=== PATIENT | female | born 2000 | race Caucasian/White ===

== ENCOUNTER 2020-01-21 18:00 | Emergency (ER) | payer OTHER, SELFPAY ==
[2020-01-21 18:10] VITALS: BP 129/85; PULSE 109; RESP 14; TEMP 36.8
--- NOTE | 2020-01-21 18:46 | ED.GENADULT ---
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 ISSUE <HUMBERTO Youssef Last Filed: 01/21/20 18:50> Time Seen by Provider: 01/21/20 18:14 <HUMBERTO Youssef Last Filed: 01/21/20 18:50> Source: patient <HUMBERTO Youssef Last Filed: 01/21/20 18:50> Mode of arrival: ambulatory <HUMBERTO Youssef Last Filed: 01/21/20 18:50> Limitations: no limitations <HMUBERTO Youssef Last Filed: 01/21/20 18:50> History of Present Illness HPI narrative: Patient is a 19-year-old female who presents to emergency department for evaluation of small piece of skin protruding from the vagina that was noticed today patient notes some mild discomfort with palpation patient notes she had intercourse this weekend denies similar occurrence in the past denies concern for STDs has not been seen for this complaint does have pending gynecological follow-up <HUMBERTO Youssef Last Filed: 01/21/20 18:50> Related Data Home medications: Home Medications Medication Instructions Recorded Confirmed desog-e.estradiol/e.estradiol 0.15 1 tablet PO DAILY 12/10/19 mg-0.02 mg(21)/e.estrad 0.01 mg(5) tablet <HUMBERTO Youssef Last Filed: 01/21/20 18:50> Allergies/adverse reactions: Allergies Allergy/AdvReac Type Severity Reaction Status Date / Time No Known Allergies Allergy Verified 12/09/19 15:11 <HUMBERTO Youssef Last Filed: 01/21/20 18:50> Review of Systems Review of Systems: Narrative: CONSTITUTIONAL: Denies fever, chills, or sweats. GASTROINTESTINAL: Denies abdominal pain, nausea, vomiting, or diarrhea. GENITOURINARY: Denies dysuria or hematuria. SKIN: Denies rash or itching. PSYCHIATRIC: Denies anxiety or depression. <HUMBERTO Youssef Last Filed: 01/21/20 18:50> [facility] Social History Social History: Social History Smoking status: Never smoker Alcohol intake: never Gender identity (if verbalized by the patient): Female <Ander Jordan PA-C - Last Filed: 01/21/20 18:50> Exam Narrative: Exam Narrative: GENERAL: Well-appearing, well-nourished, and in no acute distress. HEAD: Normocephalic, atraumatic. EYES: PERRLA and EOMI. ENT: Nares clear, no rhinorrhea or epistaxis. Mucous membranes moist. FEMALE GENITOURINARY: Small linear piece of skin on vaginal exam measuring exactly 1 cm pink tissue no erythema otherwise unremarkable exam SKIN: Warm, dry, no rash. NEURO: No focal deficits. Alert and oriented x3. PSYCH: Normal mood and affect. <Ander Jordan PA-C - Last Filed: 01/21/20 18:50> Course Course Emergency Course: Patient in the room aware of case findings treatment plan and diagnosis agreeing to follow-up as directed <Ander Jordan PA-C - Last Filed: 01/21/20 18:50> Vital Signs Vital signs: Vital Signs Temperature 36.8 C 01/21/20 18:10 Pulse Rate 109 H 01/21/20 18:10 Respiratory Rate 14 01/21/20 18:10 Blood Pressure 129/85 01/21/20 18:10 Temperature 36.8 C 01/21/20 18:10 Pulse Rate 99 01/21/20 18:55 Respiratory Rate 12 01/21/20 18:55 Blood Pressure 120/70 01/21/20 18:55 Pulse Oximetry 99 01/21/20 18:55 <Ander Jordan PA-C - Last Filed: 01/21/20 18:50> Vital Signs Temperature 36.8 C 01/21/20 18:10 Pulse Rate 109 H 01/21/20 18:10 Respiratory Rate 14 01/21/20 18:10 Blood Pressure 129/85 01/21/20 18:10 Temperature 36.8 C 01/21/20 18:10 Pulse Rate 99 01/21/20 18:55 Respiratory Rate 12 01/21/20 18:55 Blood Pressure 120/70 01/21/20 18:55 Pulse Oximetry 99 01/21/20 18:55 <Wendie Martin MD - Last Filed: 01/21/20 19:18> Medical Decision Making MDM Narrative Medical decision making narrative: Patient with small piece of skin in the vaginal vault felt ap
[2020-01-21 18:55] VITALS: BP 120/70; PULSE 99; RESP 12; O2SAT 99
== END 2020-01-21 18:55 | disposition home or self-care (01) ==
PROVIDERS: Emergency Provider Emergency Medicine; PCP Family Medicine
DX: N90.89 Other specified noninflammatory disorders of vulva and perineum (principal)
CPT/HCPCS: 99284

== ENCOUNTER → 2020-06-21 07:45 | Outpatient (CLI) | payer OTHER, SELFPAY ==
--- NOTE | ~2020-06-21 | MR_ITS ---
EXAMINATION: MR lumbar spine wo con DATE: 06/21/2020 08:28 INDICATION: Low back pain. Sciatica. TECHNIQUE: Magnetic resonance imaging (MRI) of the lumbar spine was performed without intravenous con trast. Sequences included sagittal T2-weighted FSE, sagittal T2-weighted FS FSE, sagittal T1-weighted FSE, and axial T2-weighted FSE. COMPARISON: None FINDINGS: Bone alignment is normal. There are Schmorl's nodes at most levels. There is a transitional segment at the lumbosacral junction that is designated L5. There is mild chronic anterior wedging of T11 and T12 vertebral bodies. There is mildly decreased disc height at T12-L1 and L4-L5. The distal spinal cord signal intensity is normal. The conus medullaris is at T12. The following disc levels are specifically discussed: T12-L1: There is a left central extrusion. There is no facet joint osteoarthritis. There is no neural foraminal stenosis. There is mild central canal stenosis. L1-L2: The disc does not extend beyond the endplate margin. There is no facet joint osteoarthritis. T here is no neural foraminal stenosis. There is no central canal stenosis. L2-L3: There is a right foraminal protrusion. There is no facet joint osteoarthritis. There is mild r ight neural foraminal stenosis. There is no central canal stenosis. L3-L4: The disc does not extend beyond the endplate margin. There is mild bilateral facet joint osteo arthritis. There is mild right neural foraminal stenosis. There is no central canal stenosis. L4-L5: There is a central extrusion. There is mild bilateral facet joint osteoarthritis. There is mil d left neural foraminal stenosis. There is mild central canal stenosis. L5-S1: The disc does not extend beyond the endplate margin. There is mild bilateral facet joint osteo arthritis. There is no neural foraminal stenosis. There is no central canal stenosis. IMPRESSION: 1. Mild lumbar spondylosis. Reviewed, dictated and finalized at location A. IMPRESSION: 1. Mild lumbar spondylosis.
== END ==
DX: M54.30 Sciatica, unspecified side (principal); M47.816 Spondylosis without myelopathy or radiculopathy, lumbar region
CPT/HCPCS: 72148

== ENCOUNTER → 2020-11-03 08:04 | Outpatient (CLI) | payer OTHER, SELFPAY ==
--- NOTE | ~2020-11-03 | US_ITS ---
EXAMINATION: US abdomen complete EXAM DATE: 11/03/2020 08:25 INDICATION: R10.13 - Epigastric pain. TECHNIQUE: Multiple grayscale and Doppler images of the complete abdomen were obtained (by a technolo gist who performed the scan) and subsequently reviewed. There is no prior study for comparison. FINDINGS: The abdominal aorta is normal in caliber. Visualized portion IVC is patent. The pancreatic head a nd body are normal in appearance. The pancreatic tail is not visualized. The liver has normal echogenicity and contour. There are no focal liver lesions identified. There is no evidence of intrahepatic biliary duct dilation. Portal venous flow was seen in the hepatopedal , normal direction and has normal Doppler waveform. Common bile duct measures 5 mm, which is normal. The gallbladder wall is normal in thickness, with ex pected amount of distention. No sonographic evidence of pericholecystic fluid. There is no cholelit hiases. Technologist performing exam reports patient did not demonstrate sonographic Shields's sign. Please note that this sign is less reliable in patients who have received pain medication. Right kidney: There is normal contour and echogenicity. It measures 10.6 x 4.4 x 5.8 centimeters. There are no focal renal lesions identified. There is no hydronephrosis. Left kidney: There is normal contour and echogenicity. It measures 11.4 x 5.3 x 5.2 centimeters. T here are no focal renal lesions identified. There is no hydronephrosis. The spleen measures 12.9 centimeters and is morphologically normal. IMPRESSION: 1. Unremarkable complete abdominal ultrasound exam. Reviewed, dictated and finalized at location B. TECHNICIAN
== END ==
PROVIDERS: PCP Nurse Practitioner Family; Visit Provider Nurse Practitioner Family
DX: R10.13 Epigastric pain (principal)
CPT/HCPCS: 76700

== ENCOUNTER 2020-12-24 07:58 | Outpatient (CLI) | payer OTHER, SELFPAY ==
--- NOTE | ~2020-12-24 | XR_ITS ---
XR cervical spine min 6V 12/24/2020 08:28 Indication: Cervicalgia Procedure: 6 views of the cervical spine including flexion and extension Comparison: No prior studies for comparison. Findings: There is straightening of cervical lordosis. No prevertebral soft tissue swelling. There is anatomic alignment. Vertebral body heights are maintained. No significant disc narrowing. No acute f racture or traumatic malalignment. Facet and uncinate joints within normal limits. Lung apices are no rmal. Lateral masses are normally aligned. No evidence for perched facet. Impression: 1: No significant abnormality of the cervical spine. Reviewed, dictated and finalized at location B. Impression: 1: No significant abnormality of the cervical spine.
--- NOTE | ~2020-12-24 | CT_ITS ---
EXAMINATION: CT abdomen pelvis wo con DATE: 12/24/2020 08:44 INDICATION: Epigastric pain TECHNIQUE: Computed tomography (CT) of the abdomen and pelvis was performed without intravenous contr ast. The dose-length product was 1082.25 mGy-cm. Automated exposure control and iterative reconstruct ion technique were employed. COMPARISON: Ultrasound dated 11/03/2020. FINDINGS: No significant pleural or pericardial effusion. Heart size normal. No significant pleural o r pericardial effusion. No significant vascular abnormality. No lymphadenopathy. There are multiple m esenteric lymph nodes were marked for mildly enlarged. Fat-containing umbilical hernia. Nonobstructiv e bowel gas pattern. The liver, spleen, pancreas, adrenal glands and kidneys are unremarkable. Gallbladder is present. No acute osseous abnormality. IMPRESSION: 1. Mild diffuse mesenteric lymphadenopathy, most likely reactive. Lymphoma and metastatic disease are less favored, although not excluded. Reviewed, dictated and finalized at location B.
== END 2020-12-24 07:59 | disposition home or self-care (01) ==
PROVIDERS: PCP Family Medicine; Visit Provider Nurse Practitioner Family
DX: R10.13 Epigastric pain (principal); M54.2 Cervicalgia; R59.0 Localized enlarged lymph nodes
CPT/HCPCS: 72052; 74176

== ENCOUNTER 2021-01-04 10:01 | Outpatient (CLI) | payer OTHER, SELFPAY ==
[2021-01-04 10:42] LABS: Basophils Percent Auto 0.3 % (0.2-1.2); Eosinophils Absolute Auto 0.1 K/mm3 (0-0.3); Eosinophils Percent Auto 0.9 % (0-4.4); Hematocrit 40.7 % (37.0-47.0); Hemoglobin 13.2 g/dL (12.0-15.0); Immature Granulocyte Absolute 0.02 K/mm3 (0.00-0.031); Immature Granulocyte Percent A 0.3 % (0-0.5); Lymphocytes Absolute Auto 2.55 K/mm3 (0.9-3.2); Lymphocytes Percent Auto 37.3 % (18.3-44.2); Mean Corpuscular HGB Conc 32.4 g/dl (32-36); Mean Corpuscular Hemoglobin 27.6 pg (26-34); Mean Corpuscular Volume 85.1 fl (80-100); Mean Platelet Volume 9.7 fl (7.4-10.4); Monocytes Absolute Auto 0.4 K/mm3 (0.1-0.6); Monocytes Percent Auto 5.4 % (2.6-8.5); Neutrophils Absolute Auto 3.8 K/mm3 (1.3-6.7); Neutrophils Percent Auto 55.8 % (45.5-73.1); Platelet Count Result 318 k/mm3 (150-375); Red Blood Count 4.78 M/mm3 (4.2-5.4); Red Cell Distribution Width 12.2 % (11.5-14.5); White Blood Count 6.8 K/mm3 (4.5-10.0)
[2021-01-04 10:49] LABS: Alanine Aminotransferase 17 U/L (4-35); Albumin Level 4.3 g/dL (3.5-5.1); Alkaline Phosphatase 80 U/L (38-126); Amylase 79 U/L (30-110); Anion Gap 8 mmol/L (8-16); Aspartate Amino Transferase 20 U/L (14-36); Bilirubin,Total 0.3 mg/dL (0.2-1.3); Blood Urea Nitrogen 12 mg/dL (7-17); Calcium 9.8 mg/dL (8.4-10.2); Carbon Dioxide 30 mmol/L (22-30); Chloride 104 mmol/L (98-107); Estimated Glomerular Filt Rate > 60; Glucose 122 mg/dL (65-105); Lipase 59 U/L (23-300); Potassium 4.7 mmol/L (3.4-5.0); Sodium 142 mmol/L (137-145)
[2021-01-04 11:29] LABS: Erythrocyte Sedimentation Rate 25 mm/hr (0-20)
[2021-01-04 11:40] LABS: Vitamin D 25 Hydroxy 55.5 ng/mL
== END 2021-01-04 10:02 | disposition home or self-care (01) ==
PROVIDERS: PCP Nurse Practitioner Family; Visit Provider Nurse Practitioner Family
DX: E55.9 Vitamin D deficiency, unspecified (principal); R59.9 Enlarged lymph nodes, unspecified; R10.13 Epigastric pain; R59.0 Localized enlarged lymph nodes
CPT/HCPCS: 36415; 80053; 82150; 82306; 83690; 85025; 85652; 86038

== ENCOUNTER → 2021-01-04 13:46 | Outpatient (CLI) | payer OTHER, SELFPAY ==
--- NOTE | ~2021-01-04 | US_ITS ---
EXAMINATION: US transvaginal EXAM DATE: 01/04/2021 14:11 INDICATION: R59.9 - Enlarged lymph nodes, unspecified. Mesenteric lymph nodes on CT. TECHNIQUE: Pelvic transvaginal sonogram was performed. There are multiple grayscale and Doppler imag es available for interpretation. There is no prior study for comparison. FINDINGS: Uterus measures 5.9 x 2.6 x 3.7 cm, is anteverted and morphologically normal. Endometrial stripe measures 3 mm, within normal limits. There is no free pelvic fluid. No evidence of pelvic ly mphadenopathy. Right adnexa: The ovary measures 2.0 x 1.9 x 1.8 cm and is morphologically normal. Ovarian vascular f low confirmed. Left adnexa: The ovary measures 2.6 x 1.3 x 2.6 cm and is morphologically normal. Ovarian vascular fl ow confirmed. IMPRESSION: 1. Unremarkable pelvic ultrasound exam. Reviewed, dictated and finalized at location A.
== END ==
PROVIDERS: PCP Family Medicine; Visit Provider Nurse Practitioner Family
DX: R59.9 Enlarged lymph nodes, unspecified (principal); R93.89 Abnormal findings on diagnostic imaging of other specified body structures
CPT/HCPCS: 76830

== ENCOUNTER 2021-03-30 00:50 | Day surgery (SDC) | payer OTHER, SELFPAY ==
[2021-03-17 08:29] VITALS: BMI 38.6
[2021-03-30] MEDS: LACTATED RINGERS 1,000 ML 150 ML IV CONT (07:19)
[2021-03-30 07:20] VITALS: BP 134/73; PULSE 82; RESP 17; TEMP 36.2; O2SAT 98; BMI 37.3
--- NOTE | 2021-03-30 08:01 | WPDANESEPPF ---
Anes - Initial Pre Proc Eval Procedure: Operation Date: 03/30/21 08:00 Proposed Procedures p Esophagogastroduodenoscopy & Colonoscopy - Trev Patiño MD Date/Time: 03/30/21 08:01 Surgeon: Trev Patiño MD Pre Op Diagnosis: rectal bleeding, epigastric pain Patient Data Age: 20 Gender: F Height: 1.63 m Weight: 98.5 kg Last Vital Signs Temp 36.2 C L 03/30/21 07:20 Pulse 82 03/30/21 07:20 Resp 17 03/30/21 07:20 BP 134/73 03/30/21 07:20 Pulse Ox 98 03/30/21 07:20 Allergies Allergy/AdvReac Type Severity Reaction Status Date / Time No Known Allergies Allergy Verified 03/30/21 07:04 Home Medications Medication Instructions Recorded Confirmed Type desogestrel-e.estradiol 0.15 1 tablet PO DAILY 12/10/19 03/30/21 History mg-0.02 mg(21)/e.estrad 0.01 mg(5) tablet pantoprazole 20 mg tablet,delayed 20 mg PO QAM 56 Days #56 tablet 02/08/21 03/30/21 Rx release galcanezumab-gnlm 120 mg/mL 120 mg SUBCUT MONTHLY #1 ml 03/06/21 03/30/21 Rx subcutaneous pen injector Patient hx anesthesia problems: none Family hx anesthesia problems: none PMFSH Past Medical History Medical History BMI 38.0-38.9,adult BMI 40.0-44.9, adult Strain of cervical portion of left trapezius muscle Family History Family History Father CPAP (continuous positive airway pressure) dependence Mother No problems noted. Sibling Crohn's disease Other Diabetes mellitus Social History Social History (Updated 01/27/21 @ 14:14 by Liliya Morales CMA) Smoking status: Never smoker Alcohol intake: current Alcohol use details: 2X monthly Substance use: current Substance use type: marijuana Other substance usage details: daily Living arrangements: with family Gender identity (if verbalized by the patient): Female Spiritual care concerns: No Anes - Eval Final PreProcedure Day of Procedure 03/30/21 08:01 Patient weight: obese Heart: regular rate and rhythm Lungs: clear to auscultation and normal air movement Airway: Mallampati scale class II Neurological: alert and oriented Last oral intake: >/= 8 hours ASA classification: II Emergent: no Anesthetic plan: proceed Anesthesia type and monitoring: general GIVS Informed Consent: The patient's anesthetic plan and its attendant risks and benefits were discussed with the patient/family/POA. Questions were solicited and answers provided to the satisfaction of the patient/family/POA.
--- NOTE | 2021-03-30 08:16 | PM.HPGS ---
History of Present Illness History of Present Illness Consent: Risks, benefits, and alternatives have been discussed and questions answered. Patient agrees to proceed with procedure. Chief complaint: rectal bleeding, epigastric pain Narrative: Pennie Aguila is a 20 year old female here for egd and colonoscopy. She had few months of intermittent abdominal pain in epigastric area. Blood work with normal cbc, cmp and janett, ESR mildly elevated. She had CT scan showed mild diffuse mesenteric lymphadenopathy, most likely reactive. She never had scopes and younger sister just diagnosed with crohn's and she is on biologics Review of Systems Constitutional: Constitutional: Denies headache(s) and Denies weakness Eyes: Eyes: Denies blurry vision ENT: Reports Normal hearing present, Denies headache(s) and Denies neck pain Cardiovascular: Cardiovascular: Denies chest pain and Denies dyspnea Respiratory: Respiratory: Denies dyspnea Gastrointestinal: Gastrointestinal: Reports no additional gastrointestinal complaints Genitourinary: Genitourinary: Denies dysuria Musculoskeletal: Musculoskeletal: Denies neck pain Integumentary/Breasts: Skin/Breast: Denies dry skin Neurologic: Reports Normal hearing present, Denies headache(s) and Denies weakness Psychiatric: Psychiatric: Denies anxiety Endocrine: Endocrine: Denies change in body appearance Hematologic/Lymphatic: Hematologic/Lymphatic: Denies easy bleeding Allergic/Immunologic: Allergic/Immunologic: Denies urticaria PMFSH Past Medical History Medical History BMI 38.0-38.9,adult BMI 40.0-44.9, adult Strain of cervical portion of left trapezius muscle Family History Family History Father CPAP (continuous positive airway pressure) dependence Mother No problems noted. Sibling Crohn's disease Other Diabetes mellitus Social History Social History (Updated 01/27/21 @ 14:14 by Liliya Morales CMA) Smoking status: Never smoker Alcohol intake: current Alcohol use details: 2X monthly Substance use: current Substance use type: marijuana Other substance usage details: daily Living arrangements: with family Gender identity (if verbalized by the patient): Female Spiritual care concerns: No Meds Home Medications and Allergies Home Medications Medication Instructions Recorded Confirmed Type desogestrel-e.estradiol 0.15 1 tablet PO DAILY 12/10/19 03/30/21 History mg-0.02 mg(21)/e.estrad 0.01 mg(5) tablet pantoprazole 20 mg tablet,delayed 20 mg PO QAM 56 Days #56 tablet 02/08/21 03/30/21 Rx release galcanezumab-gnlm 120 mg/mL 120 mg SUBCUT MONTHLY #1 ml 03/06/21 03/30/21 Rx subcutaneous pen injector Allergies Allergy/AdvReac Type Severity Reaction Status Date / Time No Known Allergies Allergy Verified 03/30/21 07:04 Vital Signs Vital Signs - 24 hr 03/30/21 07:20 Temperature 97.2 F L Pulse Rate 82 Respiratory Rate 17 Blood Pressure 134/73 Pulse Oximetry 98 Exam Const: General: comfortable and no acute distress HENMT: General nose exam: Normal nares present Eyes: General: appearance normal, both eyes and all related structures Neck: Neck: no JVD Resp: Auscultation: clear to auscultation bilaterally Cardio: Rate: regular rate Rhythm: regular rhythm GI: Inspection: non-distended GI Palp: Yes Soft to palpation Skin: General skin exam: normal color Neuro: General: gait normal Speech: normal speech Extrem: General: normal to inspection Psych: Mental Status: mental status grossly normal Assessment and Plan Assessment and plan (1) Abdominal pain: Qualifiers: Abdominal location: generalized Qualified Code(s): R10.84 - Generalized abdominal pain Code(s): R10.9 - Unspecified abdominal pain Status: Acute Assessment and Plan:
[2021-03-30] MEDS: BENZOCAINE (*SP) 60 ML SPRAY CAN (HURRICAINE) 1 SPRAY MUCOUS MEM (08:27)
[2021-03-30 08:46] VITALS: BP 114/73; PULSE 82; RESP 26; O2SAT 99
[2021-03-30 08:56] VITALS: BP 133/82; PULSE 65; RESP 20; O2SAT 100
[2021-03-30 09:06] VITALS: BP 126/75; PULSE 67; RESP 19; O2SAT 100
[2021-03-30 09:16] VITALS: BP 114/70; PULSE 62; RESP 19; O2SAT 100
[2021-03-30 09:26] VITALS: BP 114/74; PULSE 63; RESP 18; O2SAT 100
== END 2021-03-30 09:58 | disposition home or self-care (01) ==
PROVIDERS: PCP Family Medicine; Visit Provider Internal Medicine Gastroenterology
PROC: 0DJ08ZZ Inspection of Upper Intestinal Tract, Via Natural or Artificial Opening Endoscopic (ICD-10-PCS; CPT 43235; principal; 2021-03-30 08:00)
DX: K52.9 Noninfective gastroenteritis and colitis, unspecified (principal); K29.50 Unspecified chronic gastritis without bleeding; R59.0 Localized enlarged lymph nodes; K64.8 Other hemorrhoids; F12.90 Cannabis use, unspecified, uncomplicated
CPT/HCPCS: 45380; 43239; 88305; J2704; J7120

== ENCOUNTER 2021-04-13 08:07 | Outpatient (CLI) | payer OTHER, SELFPAY ==
[2021-04-13 10:14] LABS: Hepatitis B Surface Antigen Negative (Negative)
[2021-04-13 10:31] LABS: Hepatitis B Surface Anti Res Negative
[2021-04-17 12:31] LABS: NIL 0.02 IU/mL; Quantiferon TB Plus, 1T NEGATIVE (NEGATIVE); TB1-NIL 0.01 IU/mL; TB2-NIL 0.01 IU/mL
[2021-04-18 04:26] LABS: Hepatitis B Core Ab Total Nonreactive (Nonreactive)
== END 2021-04-13 08:08 | disposition home or self-care (01) ==
PROVIDERS: PCP Family Medicine; Visit Provider Internal Medicine Gastroenterology
DX: K52.9 Noninfective gastroenteritis and colitis, unspecified (principal); R10.84 Generalized abdominal pain; R59.0 Localized enlarged lymph nodes
CPT/HCPCS: 36415; 86480; 86704; 86706; 87340

== ENCOUNTER → 2021-10-27 10:41 | Outpatient (CLI) | payer OTHER, SELFPAY ==
--- NOTE | ~2021-10-27 | US_ITS ---
EXAMINATION: US soft tissue abdomen EXAM DATE: 10/27/2021 10:59 INDICATION: change in size and now tender nodule to abdomen . TECHNIQUE: Multiple grayscale and Doppler images of the symptomatic right mid abdominal subcutaneous region were obtained (by a technologist who performed the scan) and subsequently reviewed. There is no prior study for comparison. FINDINGS: Scanning in the area of patient's concern right midabdomen demonstrates normal-appearing skin, subcut aneous fat and underlying musculature. No encapsulated lipoma, other mass or abdominal wall defect id entified. IMPRESSION: 1. Unremarkable ultrasound exam. Reviewed, dictated and finalized at location B. EACH CLINICIAN
== END ==
PROVIDERS: Visit Provider Nurse Practitioner Family
DX: R59.0 Localized enlarged lymph nodes (principal)
CPT/HCPCS: 76705

== ENCOUNTER → 2021-11-23 07:52 | Outpatient (CLI) | payer OTHER, SELFPAY ==
--- NOTE | ~2021-11-23 | MR_ITS ---
EXAMINATION: MR brain/brain stem wo con EXAM DATE: 11/23/2021 08:20 INDICATION: G43.909 - Migraine, unspecified, not intractable, without. TECHNIQUE: Magnetic resonance imaging (MRI) of the brain/brain stem obtained without contrast. Valentino al T1, axial diffusion, gradient echo (T2*), T1, T2, FLAIR sequences obtained. There is no prior st udy for comparison. FINDINGS: There are no areas of restricted diffusion to suggest acute infarction. There is no acute hemorrhage seen on the T2*, a hemosiderin sensitive sequence. No intraparenchymal brain mass. The ve ntricles are normal in size. There are no extra-axial collections. Flow voids are seen in the cereb ral arteries on the T2-weighted sequences consistent with their expected patency. The orbits are unr emarkable. Soft tissue is unremarkable. IMPRESSION: Unremarkable brain MRI examination. Reviewed, dictated and finalized at location B.
== END ==
PROVIDERS: PCP Family Medicine; Visit Provider Nurse Practitioner Family
DX: G43.909 Migraine, unspecified, not intractable, without status migrainosus (principal)
CPT/HCPCS: 70551

== ENCOUNTER 2022-03-22 09:30 | Outpatient (RCR) | payer OTHER, SELFPAY ==
--- NOTE | 2022-02-23 13:26 | PTOPEVAL ---
PHYSICAL THERAPY EVALUATION AND PLAN OF CARE Thank you for referring Vilma Aguila to [facility] [place].? The patient is scheduled to be seen for therapy? EVERY OTHER WEEK for 6-8wks. Please review, sign, date and return this plan of care SANTIAGO. I agree with and certify that the following plan of care is medically necessary. Referring Physician Date Attending Provider: Capri Ewing MD Diagnosis pelvic floor pain Onset 2-3years Subjective Information vilma is here today for c/o Query Text:As Reported By Patient/ pelvic floor pain. She Family reports that this has been happening for a couple of years. She reports that a couple of years ago something popped and there was blood and they had to cauterize the skin. She is not sure what it was and has not been told. There has been pain since then - a throbbing and sometimes sharp pain. Then a couple of months ago, she experienced a lot of pain during intercourse and the pain has gotten worse . She is not able to have intercourse as often as she used to due to pain and her boyfriend is able to note that there is a difference from several years ago. 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 Standing can sometimes feel better than sitting. Menstruation does not change the symptoms. has a history significant for back pain and sciatic radicular pain on the right side. States that at times her leg will go numb for seemingly no reason. She participated in physical therapy several times for back pain and felt like it was helpful and still has her exercises. She is understanding of continuing to perform HEP Self Report Pain Assessment Perineum Reported Pain Level 7 Pain Description Aching,Sharp,Throbbing Greatest Pain Intensity
--- NOTE | 2022-04-03 16:38 | PCPTNOTE ---
Attempted to call patient to inform her that her appt on 04/12 at 10:30AM needs to be rescheduled as the therapist is unavailable. The voicemail was not set up to leave a message. Will attempt again.
--- NOTE | 2022-04-05 10:53 | PCPTNOTE ---
Called patient to reschedule her appt for 04/12 as the therapist is unavailable at that time. Could not leave a voicemail as mailbox is full.
--- NOTE | 2022-04-12 10:05 | PCPTNOTE ---
PHYSICAL THERAPY DSICHARGE NOTE Attending Provider: Capri Ewing MD Patient:Pennie Aguila Date of :2000 Patient has not returned for any further treatments since 03/22/2022, therefore she will be discharged at this time. Patient?s initial visit was on 02/23/2022 and had a total of 2visits. Made multiple calls to patient to reschedule her final appointment and her voicemail was consistently full and could not leave a message and she did not return any communication with us. Thank you for referring this patient to [facility]. Please review, sign, date and return this discharge summary SANTIAGO. I have been updated about the patient's current status and I agree with discharge from the above service at this time. Referring Physician Date
== END 2022-04-13 09:21 | disposition home or self-care (01) ==
LOC: ANHPT 09:30
PROVIDERS: PCP Family Medicine; Referring Provider Obstetrics & Gynecology Gynecology; Visit Provider Obstetrics & Gynecology Gynecology
DX: N81.89 Other female genital prolapse (principal)
CPT/HCPCS: 97110; 97112; 97140; 97163

== ENCOUNTER → 2022-04-12 10:51 | Outpatient (CLI) | payer OTHER, SELFPAY ==
--- NOTE | ~2022-04-12 | XR_ITS ---
EXAMINATION: XR abdomen/kub 1V INDICATION: Right lower abdominal pain, Crohn's disease of the small intestine TECHNIQUE: Supine views of the abdomen were obtained on 2 radiographs. COMPARISON: None FINDINGS: The bowel gas pattern is normal. There are no dilated loops of bowel. The visualized lung b ases are clear. The osseous structures are unremarkable. IMPRESSION: 1. No radiographic correlate for the patient's symptoms. Reviewed, dictated and finalized at location A.
== END ==
PROVIDERS: PCP Nurse Practitioner Family
DX: K50.019 Crohn's disease of small intestine with unspecified complications (principal)
CPT/HCPCS: 74018

== ENCOUNTER 2022-06-15 15:32 | Outpatient (RCR) | payer OTHER, SELFPAY ==
[2022-06-15 17:20] LABS: Basophils Percent Auto 0.3 % (0.2-1.2); Eosinophils Percent Auto 0.4 % (0-4.4); Hematocrit 38.4 % (37.0-47.0); Hemoglobin 12.5 g/dL (12.0-15.0); Immature Granulocyte Absolute 0.02 K/mm3 (0.00-0.031); Immature Granulocyte Percent A 0.2 % (0-0.5); Lymphocytes Absolute Auto 3.73 K/mm3 (0.9-3.2); Lymphocytes Percent Auto 39.7 % (18.3-44.2); Mean Corpuscular HGB Conc 32.6 g/dl (32-36); Mean Corpuscular Hemoglobin 28.5 pg (26-34); Mean Corpuscular Volume 87.5 fl (80-100); Mean Platelet Volume 9.9 fl (7.4-10.4); Monocytes Absolute Auto 0.7 K/mm3 (0.1-0.6); Monocytes Percent Auto 7.9 % (2.6-8.5); Neutrophils Absolute Auto 4.8 K/mm3 (1.3-6.7); Neutrophils Percent Auto 51.5 % (45.5-73.1); Platelet Count Result 298 k/mm3 (150-375); Red Blood Count 4.39 M/mm3 (4.2-5.4); Red Cell Distribution Width 12.4 % (11.5-14.5); White Blood Count 9.4 K/mm3 (4.5-10.0)
[2022-06-15 17:28] LABS: Glucose 1 Hour PP 50gm Dose 70 mg/dL
[2022-06-15 18:10] LABS: HIV 1/2 Ab P24 Ag Result Negative (Negative)
[2022-06-15 20:29] LABS: Hepatitis B Surface Antigen Negative (Negative); Rubella IgG Antibody 62.5 IU/ML
[2022-06-16 10:18] LABS: Rapid Plasma Reagin Non-Reactive (NonReactive)
[2022-06-20 09:21] LABS: CMV IgG Antibody <0.60 U/mL (<0.60)
== END 2022-09-13 23:59 | disposition home or self-care (01) ==
LOC: ANHLAB 15:32
PROVIDERS: PCP Nurse Practitioner Family; Visit Provider Obstetrics & Gynecology
DX: Z11.4 Encounter for screening for human immunodeficiency virus [HIV] (principal); N94.89 Other specified conditions associated with female genital organs and menstrual cycle
CPT/HCPCS: 36415; 82947; 85025; 86592; 86644; 86703; 86747; 86762; 86787; 86850; 86900; 86901; 87086; 87088; 87340; G0432

== ENCOUNTER 2022-11-15 16:18 | Outpatient (CLI) | payer OTHER, SELFPAY ==
[2022-11-15 17:33] LABS: Basophils Percent Auto 0.3 % (0.2-1.2); Eosinophils Absolute Auto 0.1 K/mm3 (0-0.3); Eosinophils Percent Auto 0.5 % (0-4.4); Hematocrit 30.8 % (37.0-47.0); Hemoglobin 10.1 g/dL (12.0-15.0); Immature Granulocyte Absolute 0.05 K/mm3 (0.00-0.031); Immature Granulocyte Percent A 0.4 % (0-0.5); Lymphocytes Absolute Auto 3.64 K/mm3 (0.9-3.2); Lymphocytes Percent Auto 30.7 % (18.3-44.2); Mean Corpuscular HGB Conc 32.8 g/dl (32-36); Mean Corpuscular Hemoglobin 28.6 pg (26-34); Mean Corpuscular Volume 87.3 fl (80-100); Mean Platelet Volume 10.2 fl (7.4-10.4); Monocytes Absolute Auto 0.8 K/mm3 (0.1-0.6); Monocytes Percent Auto 6.7 % (2.6-8.5); Neutrophils Absolute Auto 7.3 K/mm3 (1.3-6.7); Neutrophils Percent Auto 61.4 % (45.5-73.1); Platelet Count Result 265 k/mm3 (150-375); Red Blood Count 3.53 M/mm3 (4.2-5.4); Red Cell Distribution Width 12.3 % (11.5-14.5); White Blood Count 11.9 K/mm3 (4.5-10.0)
[2022-11-15 17:45] LABS: Glucose 1 Hour PP 50gm Dose 88 mg/dL
[2022-11-15 18:26] LABS: HIV 1/2 Ab P24 Ag Result Negative (Negative)
== END 2022-11-15 16:19 | disposition home or self-care (01) ==
LOC: ANHLAB 16:19
PROVIDERS: PCP Nurse Practitioner Family; Visit Provider Obstetrics & Gynecology
DX: Z34.90 Encounter for supervision of normal pregnancy, unspecified, unspecified trimester (principal)
CPT/HCPCS: 36415; 82947; 85025; 86703; G0432

== ENCOUNTER → 2023-01-19 09:54 | Outpatient (CLI) | payer OTHER, SELFPAY ==
--- NOTE | ~2023-01-19 | US_ITS ---
EXAMINATION: US OB follow up DATE: 01/19/2023 10:22 INDICATION: Estimated size greater than expected for estimated gestational age TECHNIQUE: Real-time ultrasound of the pelvis was performed. The interpreting radiologist was not pre sent for the study. COMPARISON: None. FINDINGS: There is a single living fetus in vertex presentation. The placenta is posterior. heart rate i s 151 beats per minute (bpm). The amniotic fluid index is 12.3 cm, which is normal. (5th%-95%: 7.3-2 3.9 cm at 38 weeks estimated gestational age). The following biometric data were obtained: BPD: 8.5 cm -> 34 weeks 0 days Head circumference: 32.1 cm -> 36 weeks 1 days Abdominal circumference: 34.8 cm -> 38 weeks 5 days Femur length: 7.4 cm -> 37 weeks 6 days These measurements are concordant. Head circumference to abdominal circumference ratio: 0.92 (normal range 0.92-1.06). Estimated weight: 3262 g (+/-) 489 g or 7 lbs. 3 oz. (+/-) 1 lbs. 1 oz. IMPRESSION: 1. Single living fetus in vertex presentation with heart rate of 151 bpm. 2. Normal amniotic fluid index of 12.3 cm. 3. Estimated weight is 47th percentile by Hadlock criteria when 01/31/2023 is used as the estimat ed date of delivery (NICOLE). Please correlate with clinical information or earlier ultrasounds for most accurate NICOLE. Reviewed, dictated and finalized at location A. IMPRESSION: 1. Single living fetus in vertex presentation with heart rate of 151 bpm. 2. Normal amniotic fluid index of 12.3 cm. 3. Estimated weight is 47th percentile by Hadlock criteria when 01/31/2023 is used as the estimated date of delivery (NICOLE). Please correlate with clinical information or earlier ultrasounds for most accurate NICOLE.
== END ==
PROVIDERS: PCP Nurse Practitioner Family; Visit Provider Obstetrics & Gynecology
DX: O26.849 Uterine size-date discrepancy, unspecified trimester (principal)
CPT/HCPCS: 76816

== ENCOUNTER → 2023-02-07 12:00 | Outpatient (CLI) | payer OTHER, SELFPAY ==
--- NOTE | ~2023-02-07 | US_ITS ---
EXAMINATION: US venous doppler [facility] DATE: 02/07/2023 INDICATION: Left lower limb pain and swelling TECHNIQUE: Ku scale images without and with compression and Doppler images of the left lower extrem ity veins were obtained. COMPARISON: None FINDINGS: The left common femoral vein, profunda femoral vein, femoral vein, popliteal vein, peroneal trunk, posterior tibial veins, and greater saphenous vein are patent. IMPRESSION: 1. Patent left lower extremity veins. No evidence of deep venous thrombosis. Reviewed, dictated and finalized at location A.
== END ==
PROVIDERS: PCP Obstetrics & Gynecology; Visit Provider Obstetrics & Gynecology
DX: M79.89 Other specified soft tissue disorders (principal); M79.605 Pain in left leg
CPT/HCPCS: 93971

== ENCOUNTER 2023-05-09 16:48 | Outpatient (CLI) | payer OTHER, SELFPAY ==
[2023-05-09 17:13] LABS: Hematocrit 37.9 % (37.0-47.0); Hemoglobin 11.5 g/dL (12.0-15.0); Mean Corpuscular HGB Conc 30.3 g/dl (32-36); Mean Corpuscular Hemoglobin 25.2 pg (26-34); Mean Corpuscular Volume 82.9 fl (80-100); Mean Platelet Volume 10.8 fl (7.4-10.4); Platelet Count Result 194 k/mm3 (150-375); Red Blood Count 4.57 M/mm3 (4.2-5.4); Red Cell Distribution Width 13.4 % (11.5-14.5); White Blood Count 3.3 K/mm3 (4.5-10.0)
[2023-05-09 17:31] LABS: Anion Gap 7 mmol/L (8-16); Blood Urea Nitrogen 9 mg/dL (7-17); Calcium 8.7 mg/dL (8.4-10.2); Carbon Dioxide 28 mmol/L (22-30); Chloride 103 mmol/L (98-107); Estimated Glomerular Filt Rate > 60; Glucose 91 mg/dL (65-110); Potassium 3.6 mmol/L (3.4-5.0); Sodium 138 mmol/L (137-145)
[2023-05-09 17:41] LABS: Lymphocytes Absolute Manual 2.34 K/mm3 (1.1-4.5); Monocytes Absolute Manual 0.26 K/mm3 (0.1-0.90); Monocytes Percent Manual 8 % (3-9); Neutrophils Percent Manual 21 % (46-73); Platelet Estimate Adequate (Adequate); Total Cells Counted 100
[2023-05-09 17:42] LABS: Hypochromasia 1+ (NORMAL); Schistocytes None Seen (NORMAL)
[2023-05-09 19:05] LABS: Iron 40 ug/dL (37-170)
[2023-05-09 19:14] LABS: Percent Iron Saturation 9 % (20-50)
== END 2023-05-09 16:49 | disposition home or self-care (01) ==
LOC: ANHLAB 16:50
PROVIDERS: PCP Family Medicine; Visit Provider Physician Assistant Medical
DX: D64.9 Anemia, unspecified (principal); D72.9 Disorder of white blood cells, unspecified; K50.00 Crohn's disease of small intestine without complications
CPT/HCPCS: 36415; 80048; 83540; 83550; 84443; 85025

== ENCOUNTER 2023-06-21 11:41 | Outpatient (CLI) | payer OTHER, SELFPAY ==
[2023-06-21 11:58] LABS: Hematocrit 35.6 % (37.0-47.0); Mean Corpuscular HGB Conc 30.9 g/dl (32-36); Mean Corpuscular Hemoglobin 25.2 pg (26-34); Mean Corpuscular Volume 81.5 fl (80-100); Mean Platelet Volume 10.3 fl (7.4-10.4); Platelet Count Result 308 k/mm3 (150-375); Red Blood Count 4.37 M/mm3 (4.2-5.4); White Blood Count 4.5 K/mm3 (4.5-10.0)
[2023-06-21 12:11] LABS: Eosinophils Absolute Manual 0.09 K/mm3 (0.02-0.5); Eosinophils Percent Manual 2 % (0-4); Hypochromasia 1+ (NORMAL); Lymphocytes Absolute Manual 2.92 K/mm3 (1.1-4.5); Metamyelocytes Percent 1 %; Monocytes Percent Manual 9 % (3-9); Neutrophils Percent Manual 23 % (46-73); Platelet Estimate Adequate (Adequate); Schistocytes None Seen (NORMAL); Total Cells Counted 100
[2023-06-21 13:23] LABS: Erythrocyte Sedimentation Rate 21 mm/hr (0-20)
[2023-06-21 14:51] LABS: Alanine Aminotransferase 27 U/L (6-35); Albumin Level 4.4 g/dL (3.5-5.1); Alkaline Phosphatase 64 U/L (38-126); Anion Gap 9 mmol/L (8-16); Aspartate Amino Transferase 25 U/L (14-36); Bilirubin,Total 0.4 mg/dL (0.2-1.3); Blood Urea Nitrogen 11 mg/dL (7-17); CRP 0.8 mg/dL (<1.0); Carbon Dioxide 27 mmol/L (22-30); Chloride 102 mmol/L (98-107); Estimated Glomerular Filt Rate > 60; Glucose 91 mg/dL (65-110); Potassium 3.8 mmol/L (3.4-5.0); Sodium 138 mmol/L (137-145)
[2023-06-21 15:32] LABS: Iron 29 ug/dL (37-170)
[2023-06-21 15:41] LABS: Percent Iron Saturation 7 % (20-50)
[2023-06-21 16:08] LABS: Ferritin 6.09 ng/mL (6.24-137)
== END 2023-06-21 11:42 | disposition home or self-care (01) ==
PROVIDERS: PCP Family Medicine; Visit Provider Internal Medicine Hematology & Oncology
DX: D64.9 Anemia, unspecified (principal); D72.829 Elevated white blood cell count, unspecified
CPT/HCPCS: 36415; 80053; 82728; 83540; 83550; 85025; 85652; 86140

== ENCOUNTER 2024-01-09 10:02 | Outpatient (CLI) | payer OTHER, SELFPAY ==
[2024-01-09 13:20] LABS: Basophils Percent Auto 0.3 % (0.2-1.2); Eosinophils Percent Auto 0.7 % (0-4.4); Hematocrit 38.1 % (37.0-47.0); Hemoglobin 12.2 g/dL (12.0-15.0); Immature Granulocyte Absolute 0.01 K/mm3 (0.00-0.031); Immature Granulocyte Percent A 0.2 % (0-0.5); Lymphocytes Absolute Auto 2.46 K/mm3 (0.9-3.2); Lymphocytes Percent Auto 40.3 % (18.3-44.2); Mean Corpuscular Hemoglobin 28.4 pg (26-34); Mean Corpuscular Volume 88.8 fl (80-100); Mean Platelet Volume 10.8 fl (7.4-10.4); Monocytes Absolute Auto 0.4 K/mm3 (0.1-0.6); Monocytes Percent Auto 6.2 % (2.6-8.5); Neutrophils Absolute Auto 3.2 K/mm3 (1.3-6.7); Neutrophils Percent Auto 52.3 % (45.5-73.1); Platelet Count Result 237 k/mm3 (150-375); Red Blood Count 4.29 M/mm3 (4.2-5.4); Red Cell Distribution Width 13.4 % (11.5-14.5); White Blood Count 6.1 K/mm3 (4.5-10.0)
[2024-01-09 13:32] LABS: Glucose 1 Hour PP 50gm Dose 59 mg/dL
[2024-01-09 14:25] LABS: Hepatitis B Surface Antigen Negative (Negative); Rubella IgG Antibody 56.8 IU/ML
[2024-01-09 15:35] LABS: HIV 1/2 Ab P24 Ag Result Negative (Negative)
[2024-01-09 15:48] LABS: Rapid Plasma Reagin Non-Reactive (NonReactive)
[2024-01-10 14:48] LABS: CMV IgG Antibody <0.60 U/mL
== END 2024-01-09 10:03 | disposition home or self-care (01) ==
LOC: ANHLAB 10:03
PROVIDERS: PCP Family Medicine; Visit Provider Obstetrics & Gynecology
DX: N91.2 Amenorrhea, unspecified (principal)
CPT/HCPCS: 36415; 82947; 84702; 85025; 86592; 86644; 86703; 86747; 86762; 86787; 86850; 86900; 86901; 87086; 87088; 87340; G0432

== ENCOUNTER 2024-06-05 08:51 | Outpatient (CLI) | payer OTHER, SELFPAY ==
[2024-06-05 10:10] LABS: Basophils Percent Auto 0.4 % (0.2-1.2); Eosinophils Absolute Auto 0.1 K/mm3 (0-0.3); Hematocrit 32.7 % (37.0-47.0); Hemoglobin 10.5 g/dL (12.0-15.0); Immature Granulocyte Absolute 0.03 K/mm3 (0.00-0.031); Immature Granulocyte Percent A 0.4 % (0-0.5); Lymphocytes Absolute Auto 2.31 K/mm3 (0.9-3.2); Mean Corpuscular HGB Conc 32.1 g/dl (32-36); Mean Corpuscular Hemoglobin 29.4 pg (26-34); Mean Corpuscular Volume 91.6 fl (80-100); Mean Platelet Volume 10.2 fl (7.4-10.4); Monocytes Absolute Auto 0.6 K/mm3 (0.1-0.6); Monocytes Percent Auto 7.1 % (2.6-8.5); Neutrophils Absolute Auto 4.7 K/mm3 (1.3-6.7); Neutrophils Percent Auto 61.1 % (45.5-73.1); Platelet Count Result 202 k/mm3 (150-375); Red Blood Count 3.57 M/mm3 (4.2-5.4); Red Cell Distribution Width 12.3 % (11.5-14.5); White Blood Count 7.7 K/mm3 (4.5-10.0)
[2024-06-05 10:19] LABS: Glucose 1 Hour PP 50gm Dose 98 mg/dL
[2024-06-05 11:00] LABS: HIV 1/2 Ab P24 Ag Result Negative (Negative)
[2024-06-05 13:53] LABS: Rapid Plasma Reagin Non-Reactive (NonReactive)
== END 2024-06-05 08:52 | disposition home or self-care (01) ==
PROVIDERS: PCP Family Medicine; Visit Provider Obstetrics & Gynecology
DX: Z34.90 Encounter for supervision of normal pregnancy, unspecified, unspecified trimester (principal); Z3A.00 Weeks of gestation of pregnancy not specified
CPT/HCPCS: 36415; 82947; 85025; 86592; 86703; G0432

== ENCOUNTER 2024-07-17 13:24 | Outpatient (RCR) | payer OTHER, SELFPAY ==
[2024-07-16 08:35] VITALS: BP 107/53; PULSE 81
[2024-07-16 09:50] VITALS: BP 107/53; PULSE 85
--- NOTE | ~2024-07-17 | US_ITS ---
EXAMINATION: US OB limited DATE: 07/17/2024 13:58 INDICATION: Third trimester with significantly decreased amniotic fluid levels on the imagi ng study one day prior TECHNIQUE: Real-time ultrasound of the pelvis was performed. The interpreting radiologist was not pre sent for the study. COMPARISON: None. FINDINGS: There is a single living fetus in vertex presentation. The placenta is left anterior. heart ra te is 123 beats per minute (bpm). Oligohydramnios with amniotic fluid index of 5.8 cm (5th%-95%: 7.9- 24.9 cm at 35 weeks estimated gestational age). IMPRESSION: 1. Single living fetus in vertex presentation with heart rate of 123 bpm. 2. Persistent oligohydramnios with amniotic fluid index of 5.8 cm. Reviewed, dictated and finalized at location B. AR HUNTER IMPRESSION: 1. Single living fetus in vertex presentation with heart rate of 123 bpm . 2. Persistent oligohydramnios with amniotic fluid index of 5.8 cm.
--- NOTE | ~2024-07-17 | US_ITS ---
LIMITED OBSTETRIC ULTRASOUND/BIOPHYSICAL PROFILE Ordering provider: Issa Mccall MD History: . increased BMI and history of crohns . Comparison: None. FINDINGS: MATERNAL CERVIX: Not visualized. cm which is normal (normal is equal to or greater than 3.0 cm). PRESENTATION: Vertex. Longitudinal lie. PLACENTAL LOCATION: Anterior to the left. No previa. HEART RATE: 147 bpm (normal is between 110 to 160 bpm). AMNIOTIC FLUID INDEX: Low. 4.25 cm. 5th percentile is 7.9 cm. 95th percentile is 24.9 CNM. Largest ve rtical pocket is 3.5 cm. (KYLE between 5-25 cm in from 20-35 weeks gestation is considered normal). OTHER: Maternal ovaries not visualized. SCORE: breathing movements: 2 movements: 2 tone: 2 Amniotic fluid volume (2cm): 2 Total: 8 IMPRESSION: Normal biophysical profile. Low Amniotic fluid index. Reviewed, dictated and finalized at location A. ICE AGENT
--- NOTE | 2024-07-17 14:02 | PC.NURSE ---
KYLE called to MÓNICA Zamarripa to dc home, If patient doesn't have an appt sunday or sunday she needs to return to labor and delivery for repeat NST and KYLE.
== END 2024-09-06 15:56 | disposition home or self-care (01) ==
LOC: ANHOBOP 13:24
PROVIDERS: PCP Obstetrics & Gynecology; Visit Provider Obstetrics & Gynecology
DX: Z36.89 Encounter for other specified antenatal screening (principal); O41.00X0 Oligohydramnios, unspecified trimester, not applicable or unspecified
CPT/HCPCS: 59025; 76815; 76819

== ENCOUNTER 2024-08-09 14:25 | Outpatient (CLI) | payer OTHER, SELFPAY ==
[2024-08-09 14:59] LABS: Hematocrit 35.6 % (37.0-47.0); Hemoglobin 11.5 g/dL (12.0-15.0); Mean Corpuscular HGB Conc 32.3 g/dl (32-36); Mean Corpuscular Hemoglobin 28.7 pg (26-34); Mean Corpuscular Volume 88.8 fl (80-100); Mean Platelet Volume 10.7 fl (7.4-10.4); Platelet Count Result 217 k/mm3 (150-375); Red Blood Count 4.01 M/mm3 (4.2-5.4); White Blood Count 7.3 K/mm3 (4.5-10.0)
[2024-08-09 15:47] LABS: HIV 1/2 Ab P24 Ag Result Negative (Negative)
[2024-08-10 10:35] LABS: Rapid Plasma Reagin Non-Reactive (NonReactive)
--- OUTSIDE RECORDS SUMMARY | 2024-08-13 20:04 | XMS_ITS | Encounter Summary ---
Author Organization [facility] Address [address] [place] [address] Care Team Providers Care House Parent Name Role Phone Unavailable Primary Care Provider Unavailabl e Encounter Details Date Type Department Care Team (Late st Contact Info) Description 04/21/2024 Orders Only [facility] Maternal & Care [address] [place] [id number] Gay Peterson, RN Social History Tobacco Use Types Packs/Day Years Used Date Smoking Tobacco: Never Smokeless Tobacco: Never Alcohol Use Standard Drinks/Week Comments Not Currently 0 (1 standard drink = 0.6 oz pur e alcohol) Estimated Date of Delivery Comme nts Yes 08/16/2024 Based on last me nstrual period of 11/10/2023 Sex and Gender Information Value Date Recorded Sex Assigned at Not on file Gender Identity Not on file Sexual Orientation Not on file documented as of this encounter Plan of Treatment Not on file documented as of this encounter Visit Diagnoses Not on filedocumented in this encounter
--- OUTSIDE RECORDS SUMMARY | 2024-08-13 20:04 | XMS_ITS | Clinical Summary ---
Author Organization [facility] [employer] Address [address] [place] [address] Care Team Providers Care Director Medical Surgical Name Role Phone Unavailable Primary Care Provider Unavailabl e Source Comments [facility],non-owned Affiliates and Associated Physician Practices is amultiple site organization consisting of ambulatory clinics and hospital sitesin [place], [place], [place] and [place]. This disclosure is being madepursuant to the Care Everywhere program and may not contain all information available regarding this patient. Last updated 18.[facility] [employer] [employer] Allergies No known active allergies Medications * Be aware that medications may not be up to date on this document. Alwaysverify current medications with the patient. Medication Sig Dispensed Refills Start Date End Date Status Vit-DSS-Fe Fum-FA ( vitamin with iron) tablet Take 1 (one) tablet by mouth once daily Active inFLIXimab (Remicade) injectionIndications :Crohn's Disease 500 (five hundred) mg by Intravenous route every 28 days Reasons: Crohn's Disease Active Active Problems Problem Noted Date Diagnosed Date Abnormal ultrasound 04/08/2024 History of delivery 04/08/2024 Crohn's colitis, unspecified complication 2023 Hx of section complicating Maternal Crohn's disease aff ecting in second trimester 04/08/2024 Medication exposure during : Infliximab 04/08/2024 Estimated Date of Delivery Comme nts Yes 08/16/2024 Based on last me nstrual period of 11/10/2023 Encounters Date Type Department Care Team Description 08/04/2024 11:15 AM SURGERY TECH - 08/04/2024 11:59 PM SURGERY TECH Hospital Encounter [facility] [address] [place], [place] [phone] Head, Nadine Miller MD Discharge Disposition: Home or Self Care 08/04/2024 Travel 07/28/2024 8:15 AM SURGERY TECH - 07/28/2024 11:59 PM SURGERY TECH Hospital Encounter [facility] [address] [place] [address] Gokul Lizarraga MD Discharge Disposition: Home or Self Care 07/21/2024 11:06 AM SURGERY TECH - 07/21/2024 11:59 PM SURGERY TECH Hospital Encounter [facility] [address] [place] [address] Issa Mccall MD Stewart, Jeffrey D, MD Discharge Disposition: Home or Self Care 07/14/2024 9:45 AM SURGERY TECH - 07/14/2024 11:59 PM SURGERY TECH Hospital Encounter [facility] [address] [place], [place] [phone] Glendy Doss MD Discharge Disposition: Home or Self Care 06/02/2024 9:00 AM CDT - 06/02/2024 11:59 PM CDT Hospital Encounter [facility] [address] [place] [id number] Head, MD Thomas LiraerYusef MD Discharge Disposition: Home or Self Care from Last 3 Months Social History Tobacco Use Types Packs/Day Years Used Date Smoking Tobacco: Never Smokeless Tobacco: Never Tobacco Cessation:Counseling Given: Not Answered Alcohol Use Standard Drinks/Week Comments Not Currently 0 (1 standard drink = 0.6 oz pur e alcohol) Estimated Date of Delivery Comme nts Yes 08/16/2024 Based on last me nstrual period of 11/10/2023 Sex and Gender Information Value Date Recorded Sex Assigned at Not on file Gender Identity Not on file Sexual Orientation Not on file Last Filed Vital Signs Vital Sign Reading Time Taken Comments Blood Pressure 118/61 07/21/2024 11:57 AM SURGERY TECH Pulse 82 07/21/2024 11:57 AM SURGERY TECH Temperature - - Respiratory Rate - - Oxygen Saturation - - Inhaled Oxygen Concentration - - Weight 88.9 kg (196 lb) 04/08/2024 11:26 AM CDT Height 162.6 cm (5' 4 ) 04/08/2024 11:26 AM CDT Body Mass Index 33.64 04/08/2024 11:26 AM CDT Plan of Treatment Health Maintenance Due Date Last Done Comments PAP SMEAR 1998 HIV SCREENING 2013 HPV VACCINE (1 - 3-dose series) 2013 CHLAMYDIA/GONORRHEA SCREENING 2014 HEPATITIS C SCREENING 09/30/2016 DTAP/TDAP/TD VACCINES (1 - Tdap) 2017 HEPATITIS B VACCINE (1 of 3 - 19+ 3-dose series) 2017 DEPRESSION SCREENING 08/27/2023 COVID-19 VACCINE (2 - 2023-2 5 season) 2024 11/26/2020 INFLUENZA VACCINE (#1) 2024 OB-ONE HOUR GLUCOSE 05/10/2024 OB-TDAP CURRENT 05/17/2024 OB-RHOGAM INJECTION 05/24/2024 OB-GROUP B STREP SCREEN 07/12/2024 ZOSTER VACCINE (1 of 2) 2048 HIB VACCINE Aged Out No longer eligi ble based on patient's age to complete this topic MENINGOCOCCAL VACCINE Aged Out No amelie valeriano eligible based on patient's age to complete this topic PNEUMOCOCCAL VACCINE Aged Out No long er eligible based on patient's age to complete this topic Respiratory Syncytial Virus (RSV) Vaccine Pt: or over 60 yrs (No Doses Required) Completed Procedures Procedure Name Priority Date/Time Associated Diagnosis Comments SONOGRAM - COMPLETE Routine 08/04/2024 1 1:29 AM SURGERY TECH Hx of section complicating (HCC) Maternal Crohn's disease affecting in second trimester (HCC) Second (HCC) BMI 33.0-33.9,adult Encounter for ultrasound to assess growth (HCC) 29 weeks gestation of (HCC) SONOGRAM - COMPLETE Routine 07/28/2024 8 :38 AM SURGERY TECH Hx of section complicating (HCC) Maternal Crohn's disease affecting in second trimester (HCC) Second (HCC) BMI 33.0-33.9,adult Encounter for ultrasound to assess growth (HCC) 29 weeks gestation of (HCC) BIOPHYSICAL PROFILE W NST Routine 07/21/2024 11:09 AM SURGERY TECH Hx of section complicating (HCC) Maternal Crohn's disease affecting in second trimester (HCC) Second (HCC) Obesity affecting in third trimester, unspecified obesity type (HCC) Encounter for screening (HCC) SONOGRAM - COMPLETE Routine 07/14/2024 9:47 AM SURGERY TECH Hx of section complicating (HCC) Maternal Crohn's disease affecting in second trimester (HCC) Second (HCC) BMI 33.0-33.9,adult Encounter for ultrasound to assess growth (HCC) 29 weeks gestation of (HCC) SONOGRAM - COMPLETE Routine 06/02/2024 9 :18 AM CDT Hx of section complicating (HCC) Maternal Crohn's disease affecting in second trimester (HCC) Second (HCC) BMI 33.0-33.9,adult Encounter for ultrasound to assess growth (HCC) 29 weeks gestation of (HCC) from Last 3 Months Results * SONOGRAM - COMPLETE (08/04/2024 11:29 AM SURGERY TECH) Only the most recent of4 resultswithin the time period is included. Linked Results Indication ======== Class II Obesity x 1 Maternal Crohn's Disease Normal echo History ====== OB History ? 2. Para 1 Maternal Assessment = Physical Exam ??Height 160 cm, 5 ft 3 in. Weight 104 kg, 230 lb. Initial weight 91 kg, 201 lb. BMI 40.74 kg/m?. Initial BMI 35.61 kg/m?. Weight gain 13 kg, 29 ? lb Method ====== Transabdominal ultrasound. View: Sufficient ========= Joshi . Number of fetuses: 1 Dating ====== ? Date ?Details ? Gest. age ? NICOLE LMP ?11/10/2023 ? Cycle: regular cycle ?38 w + 2 d ?08/16/2024 Stated NICOLE ? 38 w + 2 d ?08/16/2024 Assigned dating based on the LMP, selected on 07/21/2024 ? 38 w + 2 d ?08/16/2024 General Evaluation Cardiac activity present. FHR 137 bpm. Presentation: cephalic Placenta: Placental site: anterior Amniotic Fluid Assessment ===== Amount of AF: normal MVP 5.4 cm. KYLE 15.3 cm. Q1 5.4 cm, Q2 3.8 cm, Q3 1.4 cm, Q4 4.7 cm Biophysical Profile 2: breathing movements 2: Gross body movements 2: tone 2: Amniotic fluid volume 04/03 Biophysical profile score Growth Overview = Exam date ?GA ?BPD (mm) ?HC (mm) AC (mm) FL (mm) HL (mm) EFW (g) 07/14/2024 ? 35w 2d ??77 ?<1% ? 306.1 ?? 4% ?298.9 ?? 19% ? 70.1 ?61% ? 54.9 ?4% ?2367 ?21% Impression ========= Single, live, intrauterine at 38w 2d Amniotic fluid volume: normal 8 point Biophysical profile: Follow-up ======== Follow up ultrasound in 1 week for growth and 8 point biophysical profile is recommended Coding ====== Procedures ? 71141: US Uterus Limited ? 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 2. Para 1 Maternal Assessment Physical Exam ??Height 160 cm, 5 ft 3 in. Weight 102 kg, 224 lb. Initial weight 91 kg, 201 lb. BMI 39.68 kg/m?. Initial BMI 35.61 kg/m?. Weight gain 10 ? kg, 23 lb Method ====== Transabdominal ultrasound examination ========= Joshi . Number of fetuses: 1 Dating ====== ? Date ?Details ? Gest. age ? NICOLE LMP ?11/10/2023 ? Cycle: regular cycle ?36 w + 2 d ?08/16/2024 Stated NICOLE ? 36 w + 2 d ?08/16/2024 Assigned dating based on the LMP, selected on 07/21/2024 ? 36 w + 2 d ?08/16/2024 General Evaluation Cardiac activity present. FHR 138 bpm. Presentation: cephalic Placenta: Placental site: anterior Amniotic Fluid Assessment ==== Amount of AF: normal MVP 4.9 cm. KYLE 17.3 cm. Q1 4.9 cm, Q2 3.6 cm, Q3 4.1 cm, Q4 4.7 cm Biophysical Profile 2: breathing movements 2: Gross body movements 2: tone 2: Amniotic fluid volume 04/03 Biophysical profile score Interpretation: normal Growth Overview = Exam date ?GA ?BPD (mm) ?HC (mm) AC (mm) FL (mm) HL (mm) EFW (g) 07/14/2024 ? 35w 2d ??77 ?<1% ? 306.1 ?? 4% ?298.9 ?? 19% ? 70.1 ?61% ? 54.9 ?4% ?2367 ?21% Impression ========= Single, live, intrauterine at 36w 2d Amniotic fluid volume: normal Biophysical profile: 04/03 Follow-up ======== Follow up ultrasound for weekly 8-point biophysical profile is recommended Coding ====== Procedures ? [id number]: US Uterus Limited ? [id number]: Biophysical Profile W/O NST Shelfie PACS Anatomical Region Laterality Modality Other 07/21/2024 11:0 9 AM SURGERY TECH Issa Mccall MD [facility] ORDERABLES from Last 3 Months
--- OUTSIDE RECORDS SUMMARY | 2024-08-13 20:04 | XMS_ITS | Encounter Summary ---
Author Organization [facility] Address [address] [place] [address] Care Team Providers Care Insurance Billing Specialist Name Role Phone Unavailable Primary Care Provider Unavailabl e Reason for Referral * Cardiac (Routine) - Open Specialty Diagnoses / Procedures Referred By Contac t Referred To Contact Cardiology Diagnoses Abnormal ultrasound Second (HCC) 21 weeks gestation of ([facility]) Procedures ECHO - CUPID CO DOPPLER ECHO PULSED WAVE &/CONT WAVE; CMPL CO DOPPLER ECHO PULSE WAVE&/CONT WAVE; REPEAT Joanne Agosto MD [address] [address] [facility] Serv [address] [place] [id number] Referral ID Status Reason Start Date Expiration Date Visits Re quested Visits Authorized [id number] Open 04/08/2024 04/08/2025 1 1 * Consultation (Routine) - Open Specialty Diagnoses / Procedures Referred By Contac t Referred To Contact Diagnoses Abnormal ultrasound History of delivery Crohn's colitis, without complications (HCC) Second ([facility]) Issa Mccall MD [address] [address] [address] [place] [address] Referral ID Status Reason Start Date Expiration Date V isits Requested Visits Authorized [id number] Open Specialty Services Required 04/01/2024 04/01/2025 3 3 * (Routine) - Open Specialty Diagnoses / Procedures Referred By Carolina t Referred To Contact Diagnoses Abnormal ultrasound History of delivery Crohn's colitis, without complications (HCC) Second (HCC) Procedures SONOGRAM - COMPLETE Issa Mccall MD [address] [facility] [address] [place] [address] Referral ID Status Reason Start Date Expiration Date Visits Re quested Visits Authorized [id number] Open 04/01/2024 04/01/2025 1 1 Reason for Visit * Reason Comments Ultrasound Maternal Medicine Consultation Encounter Details Date Type Department Care Team (Latest Contact Info) Description 04/08/2024 10:32 AM CDT - 04/08/2024 11:59 PM CDT Hospital Encounter [facility]aternal & [facility] [address] [place] [address] Carissa Loja MD [address] [facility] [address] [place] [address] Jaonne Agosto MD [address] [place] [address] Discharge Disposition: Home or Self Care Social History Tobacco Use Types Packs/Day Years [...] on file documented as of this encounter Last Filed Vital Signs Vital Sign Reading Time Taken Comments Blood Pressure 123/63 04/08/2024 11:26 AM CDT Pulse 88 04/08/2024 11:26 AM CDT Temperature - - Respiratory Rate - - Oxygen Saturation - - Inhaled Oxygen Concentration - - Weight 88.9 kg (196 lb) 04/08/2024 11:26 AM CDT Height 162.6 cm (5' 4 ) 04/08/2024 11:26 AM CDT Body Mass Index 33.64 04/08/2024 11:26 AM CDT documented in this encounter Medications at Time of Discharge Medication Sig Dispensed Refills Start Date End Date inFLIXimab (Remicade) injectionIndications:Cr ohn's Disease 500 (five hundred) mg by Intravenous route every 28 days Reasons: Crohn's Disease Vit-DSS-Fe Fum-FA ( vitamin with iron) tablet Take 1 (one) tablet by mouth once daily documented as of this encounter Progress Notes * Gay Peterson RN - 04/08/2024 11:30 AM CDT Patient here for provider visit and ultrasound . Denies contractions, denies bleeding, leakage of fluid, and reports good movement. Patient Vitals for the past 6 hrs: Pulse BP 04/08/24 1126 88 123/63 Dx with Crohns in 2020, [facility] appt in [place]. Patient is getting infusions once monthly, influectra for the past 2 years. Patient was doing iron infusions in past for anemia but was told its the best its ever been with her last lab. Reports occasional lightheadness when standing. Patient has [facility] GI appt with 05/05/24. Next OB appt 05/05/24. Patient reports good movement. Denies vaginal bleeding this . Denies headaches, blurred vision, RUQ pain. Denies cramping and contractions. Gay Peterson RN 04/08/2024 11:39 AM documented in this encounter Consult Notes * Joanne Agosto MD - 04/08/2024 1:22 PM CDT Images from the original note were not included. [facility] [address] [place] [address] Joanne Agosto MD [facility] 04/08/2024 Site of service: [facility] RE: Pennie Walter Date of : 2000 Referring Physician: Issa Mccall MD Dear Dr. Mccall: Thank you very much for referring Pennie Walter for evaluation of her high risk . I saw her on 04/08/2024 at [facility]. She was accompanied by her mother. Background. Ms. Walter is a 23 year old who is 21 weeks 3 days. She is sent for evaluation of an abnormal finding band: on outside US. She has Crohn's disease, which has been actively managed with Remicade infusions under the care of [facility]. She reports good movement. No bleeding. She does have cramping associated with Crohn's. She has had constipation, which is improving with magnesium supplementation. Nausea and vomiting have improved over the past few weeks. OB History 2 Para 1 Term 1 AB Living 1 SAB IAB Ectopic Multiple Live Births 1 # Outcome Date GA Labor/2nd Weight Sex Delivery Anes PTL Lv A1 A5 2 Current 1 Term 2022 40w0d 3345 g (7 lb 6 oz) M CS-LTranv Living Name: Hi Complications: Failure to Progress in First Stage, intolerance to labor, delivered, current hospitalization ([facility]) Comments: Induction of labor per patient with AROM, labored 12 hours but patient only dilatedto 1 cm due to intolerance had to be delivery. Location: [facility] Crohn's disease was well managed during this . PMH: Crohn's disease, no admissions, managed as outpatient PSH: c section Medications: Prior to Admission medications Medication Sig Start Date End Date Taking? Authorizing Provider inFLIXimab (Remicade) injection 500 (five hundred) mg by Intravenous route every 28 days Reasons: Crohn's Disease Yes ProviderHeber MD Vit-DSS-Fe Fum-FA ( vitamin with iron) tablet Take 1 (one) tablet by mouth once daily Yes ProviderHeber MD Allergies: none Family history: cardiac disease in adults (not CHD) Social history: no tobacco, alcohol or drug use A complete review of systems revealed no relevant problems.. PE: Upon evaluation, her weight was Weight: 88.9 kg (196 lb). Prepregnancy weight 230lbs (reported) Herblood pressure was BP: 123/63 and pulse is Pulse: 88. General: comfortable, no distress Neuro: alert, oriented US: see separate report for details: Biometry is consistent with the stated GA. A VSD is suspected on color doppler imaging An echodense band extending anterior to posterior in the lower uterine segment is suspicious for a uterine synechiae, or may represent a circumvallate placenta. Impression: 23 year old at 21 weeks 3 days with the following concerns: # Crohn's disease # Medication use/ exposure: Infliximab # History of anemia # US findings: uterine synechiae, VSD # Previous c section # weight loss during Recommendations: # Crohn's disease - The prognosis for crohn's disease during correlates with the degree of activity prior to and at the start of - Crohn's activity should be aggressively managed - She follows with daniella REDDING and follow up is scheduled for April - At this time, she will continue Remicade infusions as planned - exacerbations, especially if associated with abdominal pain should be evaluated in a timely manner. # Medication exposure/ use: Infliximab - Infliximab (Remicade) is a monoclonal antibody to TNF alpha - It does not cross the placenta well in the first trimester, and has not been associated with an increased risk of congenital anomalies, over the background risk - It may cross the placenta in the second and third trimesters. - There is a theoretical concern of affects on developing immune system of unknown degree - All vaccines should be discussed with the parts casting machine operator, in the context of maternal biological use. Live vaccines may be avoided in the early period - Consideration to the last dose given during the at around 36 weeks, with follow up doseafter delivery to reduce exposure immediately prior to delivery - I reviewed that it is no longer recommended to stop biologics in the third trimester, as a Crohn's relapse carries significant risk. # History of anemia - currently not anemic - close follow up of CBC - Low threshold for IV fe infusions if indicated. # US findings: suggestive of uterine synechiae, VSD - Close follow up with serial US exams - I reviewed that uterine synechiae have not been associated with adverse outcome, although there may be an increased risk of PPROM abruption and c section for mal-presentation. - Refer for ECHO - Consider NIPS if not already obtained # Previous c section - mode of delivery to be determined # Weight loss during / nutritional needs - nausea and vomiting have resolved - growth appropriate on today's scan - I reviewed aiming for 3 meals and 3 snacks daily, and incorporating adequate protein - It is no necessary for her to eat foods that she does not tolerate - She should be followed with labs including Vitamin D, B12 and folate, as well as iron and ferritin q 2-3 months. # assessment - NIPT- declined. May reconsider - Anatomy US- today, not completed - Growth US exams at 4-6 week intervals, next US planned for 4 weeks to complete anatomy and assessgrowth - testing as clinically indicated # Delivery planning - timing and mode of delivery to be determined as the progresses - I reviewed that may be discussed with her delivering provider. - Today's US findings are not concerning for excluding the possibility of - At this time, a term delivery is anticipated # Follow up - She will see you for her visits and delivery - She will follow up with MFM for her US exams and MFM visits. - A ECHO has been ordered. We very much appreciate the opportunity to assist in counseling and diagnosis of your patient. Please let me know if further issues arise for which I can be of help. Sincerely, Joanne Agosto MD Division of Maternal- Medicine Department of Obstetrics, Genecology, and Women's Health [facility] This was a 30 minute in person, new patient consultation. documented in this encounter Plan of Treatment Scheduled Referrals Name Type Priority Associated Diagnoses Orde r Schedule AMB REFERRAL TO MATERNAL- MEDICINE Outpatient Referral Routine Abnormal ultrasound History of delivery Crohn's colitis, unspecified complication (HCC) Second (HCC) 1 Occurrences starting 04/01/2024 until 04/01/2025 documented as of this encounter Results * ECHO COMPLETE CG (05/07/2024 11:10 AM CDT) MV E pk berto 16.05 cm/s SSM CV F UJI PACS MV A pk berto 34.3 cm/s SSM CV F UJI PACS Anatomical Region Laterality Modality Ultrasound 05/07/2024 9:52 AM CDT Narrative 05/07/2024 12:32 PM CDT Name: ? Pennie ?? Mingo Patient ??Exam Info Gender: ? Female Accession #: ? [id number] Patient Status: ? O/P : ? 2000 Admit Date: ? 05/07/2024 Exam Date/Time: ? 05/07/2024 9:52 AM Site: ? [facility] Current Location: ? CARE EStaffOrdering Provider: ? Joanne Agosto Interpreting Physician: ? Jazlyn Jules MD Live Out Nanny: ? Len Veras [facility] - Study Info Procedure: ? ECHO COMPLETE CG Indications: ? - cardiac anomaly suspected Maternal Gestational Status GA by EDC: ? 25 wks , 4 days EDC: ? 08/16/2024 Type: ? Joshi Age: ? 23 yrs Lie: ? Vertex Summary ??* The echocardiogram was within normal limits. ??* Small atrial and ventricular septal defects and persistent ductus arteriosus cannot be excluded as findings. Anatomic Relationships ??Left sided cardiac apex (levocardia). There is normal visceral-cardiac situs, and normal segmental cardiac anatomical relationship. Systemic Veins ??There is normal systemic venous return. Pulmonary Veins ??The visualized pulmonary veins drain normally to the left atrium. Right Atrium ??The right atrial size is normal. Left Atrium ??The left atrial size is normal. Atrial Septum ??Patent foramen ovale with open foramen flap. Color flow is right to left. Right Ventricle ??The right ventricular cavity size is normal. The right ventricular wall thickness is normal. The right ventricular systolic function is normal. RV Outflow Tract ??The right ventricular outflow tract is normal. Left Ventricle ??The left ventricular cavity size is normal. The left ventricular wall thickness is normal. The left ventricular systolic function is normal. Ventricular Septum ??There is no ventricular septal defect with no shunting. LV Outflow Tract ??The left ventricular outflow tract is normal. Tricuspid Valve ??The tricuspid valve is structurally normal. The tricuspid inflow pattern is normal. Tricuspid velocity is within the normal range. There is no tricuspid regurgitation. Mitral Valve ??The mitral valve is structurally normal. The mitral inflow pattern is normal. Mitral velocity is within the normal range. There is no mitral regurgitation. Aorta ?? aortic arch visualized and is without obstruction by 2D, color flow and Doppler. Pulmonary Arteries ??The main pulmonary artery is normal, with confluent branch pulmonary arteries. Ductus Arteriosus ??The antegrade flow velocity and pattern in the ductal arch is normal. A normal ductus arteriosus is appreciated. Doppler ??Flow in the ductus venosus is normal. The umbilical vein flow pattern is normal. The umbilical artery flow pattern is normal. Hydrops Assessment ??No pericardial effusion. No ascites present. No pleural effusion(s). Rhythm ??The rhythm is normal. There is 1:1 AV conduction. Pulmonary Valve ??The pulmonic valve is normal-sized. The transpulmonic velocity is within normal range. There is no pulmonic regurgitation. Aortic Valve ??The aortic valve is normal-sized. The transaortic velocity is within normal range. There is no aortic regurgitation. Doppler Measurements (Fetus A) Atrioventricular Valves Name ? Value ?Normal ??Z-Score Percentile Atrioventricular Valves Doppler TV E Peak Velocity ? 0.3 m/s ? TV A Peak Velocity ? 0.3 m/s ? MV E Peak Velocity ? 0.2 m/s ? MV A Peak Velocity ? 0.3 m/s (Fetus A) Semilunar Valves Name ? Value ?Normal ??Z-Score Percentile Semilunar Valves Doppler PV Peak Velocity. ?0.5 m/s ? AV Peak Velocity () ? 0.8 m/s (Fetus A) Heart Rate Name ? Value ?Normal ??Z-Score Percentile Heart Rate HR ? 138 bpm Report Signatures Amended by Jazlyn Jules ?? on 05/07/2024 12:34 PM Finalized by Jazlyn Jules ?? on 05/07/2024 12:32 PM Procedure Note Jazlyn Jules MD - 05/07/2024 Name: Pennie Walter Patient Exam Info Gender: Female Patient Status: O/P : 2000 Admit Date: 05/07/2024 Exam Date/Time: 05/07/2024 9:52 AM Site: [facility] Current Location: CARE EStaffOrdering Provider: Joanne Agosto Interpreting Physician: Jazlyn Jules MD Live Out Nanny: Len Veras RDCS - FE Study Info Procedure: ECHO COMPLETE CG Indications: - cardiac anomaly suspected Maternal Gestational Status GA by EDC: 25 wks , 4 days EDC: 08/16/2024 Type: Joshi Age: 23 yrs Lie: Vertex Summary * The echocardiogram was within normal limits. * Small atrial and ventricular septal defects and persistent ductus arteriosus cannot be excluded as findings. Anatomic Relationships Left sided cardiac apex (levocardia). There is normal visceral-cardiac situs, and normal segmental cardiac anatomical relationship. Systemic Veins There is normal systemic venous return. Pulmonary Veins The visualized pulmonary veins drain normally to the left atrium. Right Atrium The right atrial size is normal. Left Atrium The left atrial size is normal. Atrial Septum Patent foramen ovale with open foramen flap. Color flow is right toleft. Right Ventricle The right ventricular cavity size is normal. The right ventricularwall thickness is normal. The right ventricular systolic function is normal. RV Outflow Tract The right ventricular outflow tract is normal. Left Ventricle The left ventricular cavity size is normal. The left ventricular wall thickness is normal. The left ventricular systolic function is normal. Ventricular Septum There is no ventricular septal defect with no shunting. LV Outflow Tract The left ventricular outflow tract is normal. Tricuspid Valve The tricuspid valve is structurally normal. The tricuspid inflow patternis normal. Tricuspid velocity is within the normal range. There is notricuspid regurgitation. Mitral Valve The mitral valve is structurally normal. The mitral inflow pattern is normal. Mitral velocity is within the normal range. There is no mitral regurgitation. Aorta aortic arch visualized and is without obstruction by 2D, colorflow and Doppler. Pulmonary Arteries The main pulmonary artery is normal, with confluent branch pulmonary arteries. Ductus Arteriosus The antegrade flow velocity and pattern in the ductal arch is normal.A normal ductus arteriosus is appreciated. Doppler Flow in the ductus venosus is normal. The umbilical vein flow patternis normal. The umbilical artery flow pattern is normal. Hydrops Assessment No pericardial effusion. No ascites present. No pleural effusion(s). Rhythm The rhythm is normal. There is 1:1 AV conduction. Pulmonary Valve The pulmonic valve is normal-sized. The transpulmonic velocity iswithin normal range. There is no pulmonic regurgitation. Aortic Valve The aortic valve is normal-sized. The transaortic velocity is withinnormal range. There is no aortic regurgitation. Doppler Measurements (Fetus A) Atrioventricular Valves Name Value Normal Z-ScorePercentile Atrioventricular Valves Doppler TV E Peak Velocity 0.3 m/s TV A Peak Velocity 0.3 m/s MV E Peak Velocity 0.2 m/s MV A Peak Velocity 0.3 m/s (Fetus A) Semilunar Valves Name Value Normal Z-ScorePercentile Semilunar Valves Doppler PV Peak Velocity. 0.5 m/s AV Peak Velocity () 0.8 m/s (Fetus A) Heart Rate Name Value Normal Z-ScorePercentile Heart Rate HR 138 bpm Report Signatures Amended by Jazlyn Jules MD on 05/07/2024 12:34 PM Finalized by Jazlyn Jules MD on 05/07/2024 12:32 PM Joanne Agosto MD ECHO CUPID * SONOGRAM - COMPLETE (04/08/2024 10:37 AM CDT) Anatomical Region Laterality Modality Other 04/08/2024 10:3 7 AM CDT Narrative 04/08/2024 12:56 PM CDT ? [facility] ?Maternal and Care Center ?PHONE: ??FAX: Pat. Name: ?PENNIE WALTER Leda. No: ?[id number] Study Date: ?? 04/08/2024 ??10:37am , Age: ? 2000, 23 Pregnancies: ?? 2, Para 1 Height: ? 63 in Weight: ? 201 lb LMP: ?11/10/2023 GA by LMP: ?21w3d GA by US: ? 20w5d ?? NICOLE: 08/21/2024 GA Selected: ??21w3d (LMP) NICOLE: ?08/16/2024 Referring MD: Issa Mccall MD Live Out Nanny: ??Beena Fitzgerald RDMS CPT4: ? 39086 BMI: ?35.6 Hist/Ind: ? Left Lower Uterine Band Seen on Outside Scan ?No Genetics ? x1 ?Class II Obesity ?Maternal Crohn's disease MEASUREMENTS & AGE ? GROWTH EVALUATION Measurement ??GA ? Range ? Srce %for GA Ratios ----- ---- ------- BPD ??4.7 cm 20w2d (93z1h-77c5p) Hadl BPD 10% FL/BPD 0.73 HC ??18.0 cm 20w3d (34y4a-85q6l) Hadl HC ??7% FL/AC ??0.21 AC ??16.5 cm 21w4d (09d3b-70p4o) Hadl AC ??47% HC/AC ??1.09 (1.05 - 1.24) FL ?? 3.4 cm 20w6d (35z7b-53e7d) Hadl FL ??21% CI ? 0.73 (0.70 - 0.86) HL ?? 3.2 cm 20w4d (90m2j-79x2s) Oj HL ??37% GA for sonogram 20w5d (90v0k-43y3k) ?? Weight Estimate: based on (BPD,HC,AC,FL) Avg ?Weight: 399 gm (340-457gm) Hadloc ? : 0lbs, 14oz ? Normal: 431 gm (323-539gm) Hadloc ? Wt% ? 29% for 21w3d Heart Rate: 143 bpm Amniotic Fluid Index: 04.0cm (Deepest Pocket) PROCEDURE, TECHNIQUE Technique: transabdominal EVAL, PLACENTA Presentation: cephalic Umbilical Cord: 3 Vessels Placenta: anterior Appearance: circumvallate Heart Rate: 143 bpm Amniotic Fluid Volume: normal Anatomy!Normal!Abnormal!Suboptimal!Prev. Seen!Comments Cranium ?! ?? x ??! ?! ?! ?! Mdl (CSP/Thal! ?? x ??! ?! ?! ?! Ventricles ?? ! ?? x ??! ?! ?! ?! Choroid Plexu! ?? x ??! ?! ?! ?! Cerebellum ?? ! ?! ?! ? x ?! ?! Cisterna M. ??! ?! ?! ? x ?! ?! Nuchal Fold ??! ?! ?! ? x ?! ?! Orbits ? ! ?? x ??! ?! ?! ?! Profile ?! ?! ?! ? x ?! ?! Nasal Bone ?? ! ?! ?! ? x ?! ?! Lip ?! ?! ?! ? x ?! ?! Spine ?! ?! ?! ? x ?! ?! Lungs ?! ?? x ??! ?! ?! ?! 4 Chamber Hea! ?! ?! ? x ?! ?!Possible VSD seen ?with color doppler LVOT ? ! ?! ?! ? x ?! ?! RVOT ? ! ?? x ??! ?! ?! ?! 3 Vessel View! ?? x ??! ?! ?! ?! 3 Vessel Trac! ?! ?! ? x ?! ?! Cross-over ?? ! ?! ?! ? x ?! ?! Ductal Arch ??! ?! ?! ? x ?! ?! Aortic Arch ??! ?! ?! ? x ?! ?! Caval View ?? ! ?! ?! ? x ?! ?! Situs ?! ?? x ??! ?! ?! ?! Diaphragm ?! ?! ?! ? x ?! ?! Stomach ?! ?? x ??! ?! ?! ?! Bowel ?! ?? x ??! ?! ?! ?! Kidneys ?! ?? x ??! ?! ?! ?! Bladder ?! ?? x ??! ?! ?! ?! 3 Vessel Cord! ?? x ??! ?! ?! ?! Cord In! ?? x ??! ?! ?! ?! Upper Extremi! ?? x ??! ?! ?! ?! Hands ?! ?! ?! ? x ?! ?! Lower Extremi! ?? x ??! ?! ?! ?! Feet ? ! ?? x ??! ?! ?! ?! Placental Cor! ?? x ??! ?! ?! ?! Maternal Adne! ?? x ??! ?! ?! ?! CLINICAL SUMMARY A single fetus is seen in cephalic presentation. ??The measurements today are consistent with appropriate size for established NICOLE. ??The NICOLE is based on her LMP and a prior ultrasound examination. ??The amniotic fluid volume is within normal limits. ?? IMPRESSION: Single, live, intrauterine at 21w3d ?? size is within normal limits ?? Amniotic fluid volume: within normal limits ?? There is a possible VSD seen with color doppler imaging. No other malformations were seen within the limitations of ultrasound. ?? There is an narrow echodense band in the lower uterus extending anterior to posterior. It may be consistent with a uterine synechiae. The fetus moves freely around this area. A circumvallate placenta is less likely. RECOMMEND: Ultrasound in 4 weeks for to complete the anatomic survey, assess growth and reevaluate the placenta and suspected synechiae. Growth scans are indicated. Please see separate [facility] visit note. Thank you for allowing us the opportunity to care for your patient. ??jm Joanne Agosto MD <Electronic Signature> ??04/08/2024 12:56pm Issa Mccall MD [facility] ORDERABLES documented in this encounter Visit Diagnoses Diagnosis 21 weeks gestation of (HCC)- Primary state, incidental Abnormal ultrasound Abnormal findings on screening History of delivery Other postprocedural status Crohn's colitis, unspecified complication (HCC) Second (HCC) state, incidental Encounter for anatomic survey ([facility]) Encounter for anatomic survey BMI 33.0-33.9,adult Body Mass Index 33.0-33.9, adult Abnormal ultrasound- Primary Abnormal findings on screening History of delivery Other postprocedural status Crohn's colitis, unspecified complication (HCC) Second (HCC) state, incidental 21 weeks gestation of ([facility]) state, incidental Hx of section complicating (HCC) Previous delivery, unspecified as to episode of care or not applicable Maternal Crohn's disease affecting in second trimester ([facility]) Medication exposure during : Infliximab Supervision of other high-risk Abnormal ultrasound Abnormal findings on screening Second (HCC) state, incidental 21 weeks gestation of ([facility]) state, incidental documented in this encounter
--- OUTSIDE RECORDS SUMMARY | 2024-08-13 20:04 | XMS_ITS | Encounter Summary ---
Author Organization [facility] Address [address] [facility] [place] [address] Care Team Providers Care Central Supply Worker Name Role Phone Unavailable Primary Care Provider Unavailabl e Reason for Referral * (Routine) - Open Specialty Diagnoses / Procedures Referred By Contac t Referred To Contact Diagnoses Hx of section complicating (HCC) Maternal Crohn's disease affecting in second trimester (HCC) Second (HCC) BMI 33.0-33.9,adult Encounter for ultrasound to assess growth (HCC) 29 weeks gestation of (HCC) Procedures SONOGRAM - COMPLETE Issa Mccall MD [address] [facility] [address] [place] [address] Referral ID Status Reason Start Date Expiration Date Visits Re quested Visits Authorized [id number] Open 05/28/2024 05/28/2025 4 4 MAKER Reason for Visit * Reason Comments Ultrasound Encounter Details Date Type Department Care Team (Latest Contact Info) Description 07/28/2024 8:15 AM BAG MAKER - 07/28/2024 11:59 PM BAG MAKER Hospital Encounter [facility] Maternal & Care [facility] [place] [address] Gokul Lizarraga MD [address] [address] Discharge Disposition: Home or Self Care Social [...] on file documented as of this encounter Medications at Time of Discharge Medication Sig Dispensed Refills Start Date End Date inFLIXimab (Remicade) injectionIndications:Cr ohn's Disease 500 (five hundred) mg by Intravenous route every 28 days Reasons: Crohn's Disease Vit-DSS-Fe Fum-FA ( vitamin with iron) tablet Take 1 (one) tablet by mouth once daily documented as of this encounter Plan of Treatment Not on file documented as of this encounter Procedures Procedure Name Priority Date/Time Associated Diagnosis Comments SONOGRAM - COMPLETE Routine 07/28/2024 8:38 AM BAG MAKER Hx of section complicating (HCC) Maternal Crohn's disease affecting in second trimester (HCC) Second (HCC) BMI 33.0-33.9,adult Encounter for ultrasound to assess growth (HCC) 29 weeks gestation of ([facility]) documented in this encounter Results * SONOGRAM - COMPLETE (07/28/2024 8:38 AM BAG MAKER) Linked Results Indication ======== Left lower uterine synechiae (resolved on 05/06 US) Completed anatomy screen No genetic testing x 1 Class II Obesity Maternal Crohn's Disease Normal echo History ====== [...] NICOLE LMP ?11/10/2023 ? Cycle: regular cycle ?37 w + 2 d ?08/16/2024 Stated NICOLE ? 37 w + 2 d ?08/16/2024 Assigned dating based on the LMP, selected on 07/21/2024 ? 37 w + 2 d ?08/16/2024 General Evaluation Cardiac activity present. FHR 144 bpm. Presentation: cephalic Placenta: Placental site: anterior Amniotic Fluid Assessment ==== Amount of AF: normal MVP 4.0 cm. KYLE 10.9 cm. Q1 2.8 cm, Q2 1.2 cm, Q3 4.0 cm, Q4 2.9 cm Biophysical Profile 2: breathing movements 2: Gross body movements 2: tone 2: Amniotic fluid volume 8 Biophysical profile score Growth Overview = Exam date ?GA ?BPD (mm) ?HC (mm) AC (mm) FL (mm) HL (mm) EFW (g) 07/14/2024 ? 35w 2d ??77 ?<1% ? 306.1 ?? 4% ?298.9 ?? 19% ? 70.1 ?61% ? 54.9 ?4% ?2367 ?21% Impression ========= Single, live, intrauterine at 37w2d Amniotic fluid volume: normal 8 point Biophysical profile: 8 Follow-up ======== Continue weekly 8 point biophysical profiles (with NST added if needed) Coding ====== Procedures ? 20475: US Uterus Limited ? 99165: Biophysical Profile W/O NST [employer] PACS Anatomical Region Laterality Modality Other 07/28/2024 8:38 AM BAG MAKER Issa Mccall MD [facility] ORDERABLES documented in this encounter Visit Diagnoses Diagnosis Hx of section complicating (HCC)- Primary Previous delivery, unspecified as to episode of care or not applicable Maternal Crohn's disease affecting in second trimester (HCC) Second (HCC) state, incidental Obesity affecting in third trimester, unspecified obesity type ([facility]) Encounter for screening ([facility]) 36 weeks gestation of ([facility]) state, incidental BMI 33.0-33.9,adult Body Mass Index 33.0-33.9, adult Encounter for ultrasound to assess growth ([facility]) 29 weeks gestation of ([facility]) state, incidental documented in this encounter
--- OUTSIDE RECORDS SUMMARY | 2024-08-13 20:04 | XMS_ITS | Encounter Summary ---
Author Organization [facility] Address [address] [place] [address] Care Team Providers Care Safety Lead Name Role Phone Unavailable Primary Care Provider Unavailabl e Reason for Referral * (Routine) - Open Specialty Diagnoses / Procedures Referred By Contac t Referred To Contact Diagnoses Abnormal ultrasound History of delivery Crohn's colitis, without complications (HCC) Second (HCC) Procedures SONOGRAM - COMPLETE Issa Mccall MD [address] [facility] [address] [place] [address] Referral ID Status Reason Start Date Expiration Date Visits Re quested Visits Authorized [id number] Open 04/01/2024 04/01/2025 1 1 Encounter Details Date Type Department Care Team (Latest Contact Info) Description 04/08/2024 10:30 AM CDT - 04/08/2024 10:31 AM CDT Hospital Encounter [facility] Maternal & Care [address] [place], [place] [id number] Joanne Agosto MD [address] [facility] 4[place] [address] Carissa Loja MD [address] [facility] [address] [place] [address] Discharge Disposition: Home or Self Care Social [...] Associated Diagnosis Comments SONOGRAM - COMPLETE Routine 04/08/2024 10:37 AM CDT Abnormal ultrasound History of delivery Crohn's colitis, unspecified complication (HCC) Second (HCC) documented in this encounter Results * SONOGRAM - COMPLETE (04/08/2024 10:37 AM CDT) Anatomical Region Laterality Modality Other 04/08/2024 10:3 7 AM CDT Narrative 04/08/2024 12:56 PM CDT ? [facility] ?Maternal and Care Center ?PHONE: ??FAX: Pat. Name: ?OTTO WALTER No: ?[id number] Study Date: ?? 04/08/2024 ??10:37am , Age: ? 2000, 23 Pregnancies: ?? 2, Para 1 Height: ? 63 in Weight: ? 201 lb LMP: ?11/10/2023 GA by LMP: ?21w3d GA by US: ? 20w5d ?? NICOLE: 08/21/2024 GA Selected: ??21w3d (LMP) NICOLE: ?08/16/2024 Referring MD: Issa Mccall MD Power Machine Operator: ??Beena Fitzgerald RDMS CPT4: ? 63826 BMI: ?35.6 Hist/Ind: ? Left Lower Uterine Band Seen on Outside Scan ?No Genetics ? x1 ?Class II Obesity ?Maternal Crohn's disease MEASUREMENTS & AGE ? GROWTH EVALUATION Measurement ??GA ? Range ? Srce %for GA Ratios ----- ---- ------- BPD ??4.7 cm 20w2d (52s3w-36m5g) Hadl BPD 10% FL/BPD 0.73 HC ??18.0 cm 20w3d (55h5f-41f7p) Hadl HC ??7% FL/AC ??0.21 AC ??16.5 cm 21w4d (18i1t-18x9m) Hadl AC ??47% HC/AC ??1.09 (1.05 - 1.24) FL ?? 3.4 cm 20w6d (46s1b-94y7a) Hadl FL ??21% CI ? 0.73 (0.70 - 0.86) HL ?? 3.2 cm 20w4d (02g8x-88o6r) Oj HL ??37% GA for sonogram 20w5d (34b0p-47j6a) ?? Weight Estimate: based on (BPD,HC,AC,FL) Avg [...] Growth scans are indicated. Please see separate [facility] visit note. Thank you for allowing us the opportunity to care for your patient. ??nancy Agosto MD <Electronic Signature> ??04/08/2024 12:56pm Issa Mccall MD [facility] ORDERABLES documented in this encounter Visit Diagnoses Diagnosis 21 weeks gestation of ([facility])- Primary state, incidental Abnormal ultrasound Abnormal findings on screening History of delivery Other postprocedural status Crohn's colitis, unspecified complication ([facility]) Second ([facility]) state, incidental Encounter for anatomic survey ([facility]) Encounter for anatomic survey BMI 33.0-33.9,adult Body Mass Index 33.0-33.9, adult documented in this encounter
--- OUTSIDE RECORDS SUMMARY | 2024-08-13 20:04 | XMS_ITS | Encounter Summary ---
Author Organization [facility] Address [address] [place] [address] Care Team Providers Care Sole Stainer Name Role Phone Unavailable Primary Care Provider Unavailabl e Reason for Referral * (Routine) - Open Specialty Diagnoses / Procedures Referred By Contac t Referred To Contact Diagnoses Hx of section complicating (HCC) Maternal Crohn's disease affecting in second trimester (HCC) Second (HCC) Obesity affecting in third trimester, unspecified obesity type (HCC) Encounter for screening (HCC) Procedures BIOPHYSICAL PROFILE W Issa Adhikari MD [address] [place] [address] Referral ID Status Reason Start Date Expiration Date Visits Re quested Visits Authorized [id number] Open 07/18/2024 07/18/2025 1 1 INE OPERATOR * (Routine) - Open Specialty Diagnoses / Procedures Referred By Contac t Referred To Contact Diagnoses Hx of section complicating (HCC) Maternal Crohn's disease affecting in second trimester (HCC) Second (HCC) Obesity affecting in third trimester, unspecified obesity type (HCC) Encounter for screening (HCC) Procedures BIOPHYSICAL PROFILE W Issa Adhikari MD [address] [place] [address] Referral ID Status Reason Start Date Expiration Date Visits Re quested Visits Authorized [id number] Open 07/18/2024 07/18/2025 1 1 INE OPERATOR Reason for Visit * Reason Comments Ultrasound Non-stress Test Encounter Details Date Type Department Care Team (Latest Contact Info) Description 07/21/2024 11:06 AM TURBINE OPERATOR - 07/21/2024 11:59 PM TURBINE OPERATOR Hospital Encounter [facility] Maternal & Care [facility] [place] [address] Issa Mccall MD [address] [facility] [address] [place] [address] Bipin Corrales MD [address] [facility] [address] [place] [address] Discharge Disposition: Home or Self Care Social [...] Comments Blood Pressure 118/61 07/21/2024 11:57 AM TURBINE OPERATOR Pulse 82 07/21/2024 11:57 AM TURBINE OPERATOR Temperature - - Respiratory Rate - - Oxygen Saturation - - Inhaled Oxygen Concentration - - Weight - - Height - - Body Mass Index - - documented in this encounter Medications at Time of Discharge Medication Sig Dispensed Refills Start Date End Date inFLIXimab (Remicade) injectionIndications:Cr ohn's Disease 500 (five hundred) mg by Intravenous route every 28 days Reasons: Crohn's Disease Vit-DSS-Fe Fum-FA ( vitamin with iron) tablet Take 1 (one) tablet by mouth once daily documented as of this encounter Progress Notes * Gay Peterson RN - 07/21/2024 11:57 AM CST Patient here today for weekly BPP due to obesity. RN thought patient was NST and put her on monitorfor 5 minutes (FHR 125) then realized order is for 8pt BPP with KYLE weekly. Explained to patient and patient voiced understanding. Per publication director BPP was 8/8 today. KYLE was WNL. See ultrasound report for details. Patient reports she is a scheduled repeat section on 08/11/24. Patient to schedule for weekly BPP/KYLE prior to leaving office today. Gay Peterson RN 07/21/2024 12:00 PM INE OPERATOR documented in this encounter Plan of Treatment Not on file documented as of this encounter Procedures Procedure Name Priority Date/Time Associated Diagnosis Comments BIOPHYSICAL PROFILE W NST Routine 07/21/2024 11:09 AM TURBINE OPERATOR Hx of section complicating (HCC) Maternal Crohn's disease affecting in second trimester (HCC) Second (HCC) Obesity affecting in third trimester, unspecified obesity type (HCC) Encounter for screening (HCC) documented in this encounter Results * BIOPHYSICAL PROFILE W NST (07/21/2024 11:09 AM TURBINE OPERATOR) Linked Results Indication ======== Left lower uterine [...] 2d Amniotic fluid volume: normal Biophysical profile: 8 Follow-up ======== Follow up ultrasound for weekly 8-point biophysical profile is recommended Coding ====== Procedures ? [id number]: US Uterus Limited ? 52839: Biophysical Profile W/O NST [employer] PACS Anatomical Region Laterality Modality Other 07/21/2024 11:0 9 AM TURBINE OPERATOR Issa Mccall MD [facility] ORDERABLES documented in this encounter Visit Diagnoses Diagnosis Hx of section complicating (HCC)- Primary Previous delivery, unspecified as to episode of care or not applicable Maternal Crohn's disease affecting in second trimester (HCC) Second (HCC) state, incidental Obesity affecting in third trimester, unspecified obesity type (HCC) Encounter for screening (HCC) documented in this encounter
--- OUTSIDE RECORDS SUMMARY | 2024-08-13 20:04 | XMS_ITS | Patient Health Summary ---
Author Organization [facility] Address [address] [place] [address] Care Team Providers Care Filling And Stapling Machine Operator Name Role Phone Unavailable Primary Care Provider Unavailabl e Note from [facility],non-owned Affiliates and Associated Physician Practices is amultiple site organization consisting of ambulatory clinics and hospital sitesin [place], [place] and [place]. This disclosure is being madepursuant to the Care Everywhere program and may not contain all information available regarding this patient. Last updated 18.[facility] Allergies No known active allergies Medications * Be aware that medications may not be up to date on this document. Alwaysverify current medications with the patient. * Vit-DSS-Fe Fum-FA ( vitamin with iron) tablet Take 1 (one) tablet by mouth once daily * inFLIXimab (Remicade) injection 500 (five hundred) mg by Intravenous route every 28 days Reasons: Crohn's Disease Active Problems Problem Noted Date Diagnosed Date Abnormal ultrasound 04/08/2024 History of delivery 04/08/2024 Crohn's colitis, unspecified complication 2023 Hx of section complicating Maternal Crohn's disease aff ecting in second trimester 04/08/2024 Medication exposure during : Infliximab 04/08/2024 Social History Tobacco Use Types Packs/Day Years [...] Comments Blood Pressure 118/61 07/21/2024 11:57 AM TEAM OTR TRUCK DRIVER Pulse 82 07/21/2024 11:57 AM TEAM OTR TRUCK DRIVER Temperature - - Respiratory Rate - - Oxygen Saturation - - Inhaled Oxygen Concentration - - Weight 88.9 kg (196 lb) 04/08/2024 11:26 AM CDT Height 162.6 cm (5' 4 ) 04/08/2024 11:26 AM CDT Body Mass Index 33.64 04/08/2024 11:26 AM CDT Procedures * SONOGRAM - COMPLETE(Performed 08/04/2024) Performed for Hx of section complicating (HCC), Maternal Crohn's disease affecting in second trimester (HCC), Second (HCC), BMI 33.0-33.9,adult, Encounter for ultrasound to assess growth ([facility]), 29 weeks gestation of ([facility]) * SONOGRAM - COMPLETE(Performed 07/28/2024) Performed for Hx of section complicating (HCC), Maternal Crohn's disease affecting in second trimester (HCC), Second (HCC), BMI 33.0-33.9,adult, Encounter for ultrasound to assess growth ([facility]), 29 weeks gestation of ([facility]) * BIOPHYSICAL PROFILE W NST(Performed 07/21/2024) Performed for Hx of section complicating (HCC), Maternal Crohn's disease affecting in second trimester (HCC), Second (HCC), Obesity affecting in thirdtrimester, unspecified obesity type ([facility]), Encounter for screening ([facility]) * SONOGRAM - COMPLETE(Performed 07/14/2024) Performed for Hx of section complicating (HCC), Maternal Crohn's disease affecting in second trimester (HCC), Second (HCC), BMI 33.0-33.9,adult, Encounter for ultrasound to assess growth ([facility]), 29 weeks gestation of ([facility]) * SONOGRAM - COMPLETE(Performed 06/02/2024) Performed for Hx of section complicating (HCC), Maternal Crohn's disease affecting in second trimester (HCC), Second (HCC), BMI 33.0-33.9,adult, Encounter for ultrasound to assess growth (HCC), 29 weeks gestation of (HCC) * ECHO COMPLETE CG(Performed 05/07/2024) Performed for Abnormal ultrasound, Second (HCC), 21 weeks gestation of (HCC) * SONOGRAM - COMPLETE(Performed 05/06/2024) Performed for Hx of section complicating (HCC), Maternal Crohn's disease affecting in second trimester (HCC), 25 weeks gestation of (HCC), Second (HCC), Abnormal ultrasound, Encounter for follow-up ultrasound of anatomy ([facility]) * SONOGRAM - COMPLETE(Performed 04/08/2024) Performed for Abnormal ultrasound, History of delivery, Crohn's colitis, unspecifiedcomplication (HCC), Second (HCC) Results * SONOGRAM - COMPLETE (08/04/2024 11:29 AM TEAM OTR TRUCK DRIVER) Only the most recent of6 resultswithin the time period is included. Linked [...] profile is recommended Coding ====== Procedures ? 57535: US Uterus Limited ? 49993: Biophysical Profile W/O NST [facility] PACS Anatomical Region Laterality Modality Other 08/04/2024 11:2 9 AM TEAM OTR TRUCK DRIVER Issa Mccall MD [facility] ORDERABLES * BIOPHYSICAL PROFILE W NST (07/21/2024 11:09 AM TEAM OTR TRUCK DRIVER) Linked Results Indication ======== Left lower uterine [...] profile is recommended Coding ====== Procedures ? 42180: US Uterus Limited ? 53627: Biophysical Profile W/O NST [employer] PACS Anatomical Region Laterality Modality Other 07/21/2024 11:0 9 AM TEAM OTR TRUCK DRIVER Issa Mccall MD [facility] ORDERABLES * ECHO COMPLETE CG (05/07/2024 11:10 AM CDT) MV E pk berto 16.05 cm/s [facility] CV F UJI PACS MV A pk berto 34.3 cm/s [facility] CV F UJI PACS Anatomical Region Laterality Modality Ultrasound 05/07/2024 9:52 AM CDT Narrative 05/07/2024 12:32 PM CDT Name: ? Pennie ?? [place] Patient ??Exam Info Gender: ? Female Accession #: ? [id number] Patient Status: ? O/P : ? 2000 Admit Date: ? 05/07/2024 Exam Date/Time: ? 05/07/2024 9:52 AM Site: ? [facility] Current Location: ? CARE EStaffOrdering Provider: ? Joanne Agosto Interpreting Physician: ? Jazlyn Jules MD Patrol Judge: ? Len Veras [facility] - Study Info Procedure: ? ECHO COMPLETE [...] Jazlyn Jules MD - 05/07/2024 Name: Pennie Aguila Patient Exam Info Gender: Female Patient Status: O/P : 2000 Admit Date: 05/07/2024 Exam Date/Time: 05/07/2024 9:52 AM Site: [facility] Current Location: CARE EStaffOrdering Provider: Joanne Agosto Interpreting Physician: Jazlyn Jules MD Patrol Judge: Len Veras [facility] - Study Info Procedure: ECHO COMPLETE CG Indications: [...] Jules MD on 05/07/2024 12:32 PM Joanne ROSAS [facility]
--- OUTSIDE RECORDS SUMMARY | 2024-08-13 20:04 | XMS_ITS | Encounter Summary ---
Author Organization [facility] Address [address] [facility] [address] Care Team Providers Care Family Practice Medical Doctor Name Role Phone Unavailable Primary Care Provider Unavailabl e Reason for Referral * Cardiac (Routine) - Open Specialty Diagnoses / Procedures Referred By Contac t Referred To Contact Cardiology Diagnoses Abnormal ultrasound Second (HCC) 21 weeks gestation of ([facility]) Procedures ECHO - CUPID GA DOPPLER ECHO PULSED WAVE &/CONT WAVE; CMPL GA DOPPLER ECHO PULSE WAVE&/CONT WAVE; REPEAT Joanne Agosto MD [address] [address] [address] Referral ID Status Reason Start Date Expiration Date Visits Re quested Visits Authorized [id number] Open 04/08/2024 04/08/2025 1 1 Reason for Visit * Cardiac (Routine) - Open Specialty Diagnoses / Procedures Referred By Contac t Referred To Contact Cardiology Diagnoses Abnormal ultrasound Second (HCC) 21 weeks gestation of ([facility]) Procedures ECHO - CUPID GA DOPPLER ECHO PULSED WAVE &/CONT WAVE; CMPL GA DOPPLER ECHO PULSE WAVE&/CONT WAVE; REPEAT Joanne Agosto MD [address] [place] [phone] [facility] [address] [place] [address] Referral ID Status Reason Start Date Expiration Date Visits Re quested Visits Authorized [id number] Open 04/08/2024 04/08/2025 1 1 Encounter Details Date Type Department Care Team (Latest Contact Info) Description 05/07/2024 9:41 AM CDT - 05/07/2024 11:59 PM CDT Hospital Encounter [facility] [place] [address] [place] [address] Joanne Agosto MD [address] [facility] 4TH [place] [address] Jazlyn Jules MD [address] [place] [address] Discharge Disposition: Home or Self Care Social [...] Procedure Name Priority Date/Time Associated Diagnosis Comments ECHO COMPLETE CG Routine 05/07/2024 11:10 AM CDT Abnormal ultrasound Second (HCC) 21 weeks gestation of (HCC) documented in this encounter Results * ECHO COMPLETE CG (05/07/2024 11:10 AM CDT) MV E pk berto 16.05 cm/s [facility]SM CV F UJI PACS MV A pk berto 34.3 cm/s [facility] CV F UJI PACS Anatomical Region Laterality Modality Ultrasound 05/07/2024 9:52 AM CDT Narrative 05/07/2024 12:32 PM CDT Name: ? Pennie ?? [place] Patient ??Exam Info Gender: ? Female Accession #: ? [id number] Patient Status: ? O/P : ? 2000 Admit Date: ? 05/07/2024 Exam Date/Time: ? 05/07/2024 9:52 AM Site: ? [facility] Current Location: ? CARE EStaffOrdering Provider: ? Joanne Agosto Interpreting Physician: ? Jazlyn Jules MD Genetic Technologist: ? Len Veras [facility] Study Info Procedure: ? ECHO COMPLETE CG [...] 05/07/2024 Exam Date/Time: 05/07/2024 9:52 AM Site: [facility] Current Location: CARE EStaffOrdering Provider: Joanne Agosto Interpreting Physician: Jazlyn Jules MD Genetic Technologist: Len Veras [facility] Study Info Procedure: ECHO COMPLETE CG Indications: [...] 12:32 PM Joanne Agosto MD ECHO CUPID documented in this encounter Visit Diagnoses Diagnosis Abnormal ultrasound Abnormal findings on screening Second (HCC) state, incidental 21 weeks gestation of (HCC) state, incidental documented in this encounter
--- OUTSIDE RECORDS SUMMARY | 2024-08-13 20:04 | XMS_ITS | Encounter Summary ---
Author Organization [facility] Address [address] [facility] [place] [address] Care Team Providers Care Environmental Designer Name Role Phone Unavailable Primary Care Provider Unavailabl e Encounter Details Date Type Department Care Team (Latest Contact Info) Description 04/08/2024 Travel Social History Tobacco Use Types Packs/Day Years [...]
--- OUTSIDE RECORDS SUMMARY | 2024-08-13 20:04 | XMS_ITS | Encounter Summary ---
Author Organization [facility] Address [address] [place] [address] Care Team Providers Care Levee Superintendent Name Role Phone Unavailable Primary Care Provider [...] SONOGRAM - COMPLETE Issa Mccall MD [address] [address] [address] [place] [address] Referral ID Status Reason Start Date Expiration Date Visits Re quested Visits Authorized [id number] Open 05/28/2024 05/28/2025 4 4 KNITTER Reason for Visit * Reason Comments Biophysical Profile Ultrasound Encounter Details Date Type Department Care Team (Latest Contact Info) Description 08/04/2024 11:15 AM RIB KNITTER - 08/04/2024 11:59 PM RIB KNITTER Hospital Encounter [facility]aternal & Care [address] [place] [address] Head, Nadine Miller MD [address] [facility] [address] [place] [address] Discharge Disposition: Home or Self [...] Diagnosis Comments SONOGRAM - COMPLETE Routine 08/04/2024 11:29 AM RIB KNITTER Hx of section complicating (HCC) Maternal Crohn's disease affecting in second trimester (HCC) Second (HCC) BMI 33.0-33.9,adult Encounter for ultrasound to assess growth (HCC) 29 weeks gestation of ([facility]) documented in this encounter Results * SONOGRAM - COMPLETE (08/04/2024 11:29 AM RIB KNITTER) Linked Results Indication ======== Class II Obesity [...] profile is recommended Coding ====== Procedures ? 13397: US Uterus Limited ? 53518: Biophysical Profile W/O NST [employer] PACS Anatomical Region Laterality Modality Other 08/04/2024 11:2 9 AM RIB KNITTER Issa Mccall MD [facility] ORDERABLES documented in this encounter Visit Diagnoses Diagnosis Hx of section complicating (HCC)- Primary Previous delivery, unspecified as to episode of care or not applicable Maternal Crohn's disease affecting in second trimester (HCC) Second (HCC) state, incidental Obesity affecting in third trimester, unspecified obesity type (HCC) Encounter for screening ([facility]) BMI 33.0-33.9,adult Body Mass Index 33.0-33.9, adult Encounter for ultrasound to assess growth (HCC) 29 weeks gestation of (HCC) state, incidental documented in this encounter
--- OUTSIDE RECORDS SUMMARY | 2024-08-13 20:04 | XMS_ITS | Encounter Summary ---
Author Organization [facility] Address [address] [place] [address] Care Team Providers Care Warehouse Man Name Role Phone Unavailable Primary Care Provider Unavailabl e Encounter Details Date Type Department Care Team (Late st Contact Info) Description 05/07/2024 9:41 AM CDT Hospital Encounter [facility] [address] [place] [id number] Jazlyn Jules MD [address] [place] [id number] Social History Tobacco Use Types Packs/Day Years [...] as of this encounter Progress Notes * Jazlyn Jules MD - 05/07/2024 11:22 AM CDT Images from the original note were not included. Echocardiogram and Consultation Date: 05/07/2024 : Joshi Referring Physician: Dr. Bipin Corrales Dear Dr. Corrales: I had the pleasure of seeing your patient, Pennie Aguila, for echocardiographic evaluation and consultation on 05/07/2024. Indications for echocardiogram include a history of cardiac abnormality suspected. The baby had a VSD suspected on previous ultrasound. The following clinical information was available at the time of the evaluation: Maternal Age: [age] year old Gestational Age: 25w4d Estimated Date of Delivery: 08/16/24 History : Complications of the : possible cardiac abnormality Maternal Medical History: Crohn's disease Medications: vitamins Social History: non-smoker Family History of Congenital Heart Disease: No Previous Ultrasound: possible VSD Abnormal HeartTones: none detected A complete 2-D, pulse wave and color Doppler echocardiogram was performed. The quality of thestudy was technically adequate. 2-D Findings: Visceroatrial situs solitus with levocardia. The systemic venous return was normal. There was atrioventricular and ventriculoarterial concordance. The right atrium and left atrium appeared normal size. There was a patent foramen ovale which bowed from right to left. The mitral valve and tricuspid valves were morphologically normal. The right and left ventricles were normal size for gestational age with normal wall thickness and normal systolic function. The ventricular septum appeared intact. The great vessels were normally related. The branch pulmonary arteries were confluent. A ductal arch was identified. The aortic arch appeared normal. No pericardial or pleural effusion. Doppler Examination: There was normal mitral and tricuspid inflow patterns with a dominant A wave and smaller E wave. No mitral or tricuspid insufficiency. There was normal laminar flow across the aortic and pulmonary valves. There was normal [id number]-kh-qmgc shunting across the ductus arteriosus in systole with a small amount in diastole. There was normal flow pattern in the transverse aortic arch.No arrhythmia was detected. IMPRESSION: Normal echocardiogram. RECOMMENDATIONS: I reviewed the findings of today's echocardiogram with the mother of the baby. I reassured her that there are no identified cardiac malformations on today's study, but that minor defects, such as small muscular VSDs or minor valve defects, could still be present postnatally. Based on the findings today, no further cardiology follow-up is needed unless new concerns or symptoms arise. Thank you again for allowing us to participate in the care of this patient. If you have any furtherquestions, please do not hesitate to contact me at . In general, echocardiography has an excellent sensitivity and specificity. However, certain heart lesions cannot be diagnosed in the fetus as they are a normal part of the circulation, e.g. secundum atrial septal defects and patent ductus arteriosus. Other congenital heart lesions that have proven difficult to diagnose in a fetus include coarctation of the aorta, total or partial anomalous pulmonary venous return, small ventricular septal defects, and coronary anomalies. Nor can we predict late gestation myocarditis or arrhythmias later in life such as Pctwe-Chaiceolh-Hndxi syndrome. Total time spent was 45 minutes including reviewing diagnostic imaging and counseling regarding findings and limitations, and documentation. Sincerely, Jazlyn Jules MD documented in this encounter Plan of Treatment Not on file documented as of this encounter Visit Diagnoses Not on filedocumented in this encounter
--- OUTSIDE RECORDS SUMMARY | 2024-08-13 20:04 | XMS_ITS | Encounter Summary ---
Author Organization [facility] Address [address] [facility] [place] [address] Care Team Providers Care Board Mixer Tender Name Role Phone Unavailable Primary Care Provider Unavailabl e Reason for Referral * (Routine) - Open Specialty Diagnoses / Procedures Referred By Contac t Referred To Contact Diagnoses Hx of section complicating (HCC) Maternal Crohn's disease affecting in second trimester (HCC) 25 weeks gestation of (HCC) Second (HCC) Abnormal ultrasound Encounter for follow-up ultrasound of anatomy (HCC) Procedures SONOGRAM - COMPLETE Issa Mccall MD [address] [place] [address] Referral ID Status Reason Start Date Expiration Date Visits Re quested Visits Authorized [id number] Open 04/21/2024 04/21/2025 1 1 * (Routine) - Open Specialty Diagnoses / Procedures Referred By Contac t Referred To Contact Diagnoses Hx of section complicating (HCC) Maternal Crohn's disease affecting in second trimester (HCC) 25 weeks gestation of (HCC) Second (HCC) Abnormal ultrasound Encounter for follow-up ultrasound of anatomy (HCC) Procedures SONOGRAM - COMPLETE Issa Mccall MD [address] [place] [address] Referral ID Status Reason Start Date Expiration Date Visits Re quested Visits Authorized [id number] Open 04/21/2024 04/21/2025 1 1 Reason for Visit * Reason Comments Ultrasound Encounter Details Date Type Department Care Team (Latest Contact Info) Description 05/06/2024 9:45 AM CDT - 05/06/2024 11:59 PM CDT Hospital Encounter [facility] Maternal & Care [address] [place], [place] [id number] Bipin Corrales MD [address] [facility] [address] [place] [address] Discharge Disposition: Home or Self [...] Associated Diagnosis Comments SONOGRAM - COMPLETE Routine 05/06/2024 9:50 AM CDT Hx of section complicating (HCC) Maternal Crohn's disease affecting in second trimester (HCC) 25 weeks gestation of (HCC) Second (HCC) Abnormal ultrasound Encounter for follow-up ultrasound of anatomy (HCC) documented in this encounter Results * SONOGRAM - COMPLETE (05/06/2024 9:50 AM CDT) Anatomical Region Laterality Modality Other 05/06/2024 9:50 AM CDT Narrative 05/06/2024 12:39 PM CDT ? [facility] ?Maternal and Care Center ?PHONE: ??FAX: Pat. Name: ?OTTO WALTER Pat. No: ?[id number] Study Date: ?? 05/06/2024 ??9:50am , Age: ? 2000, 23 Pregnancies: ?? 2, Para 1 Height: ? 63 in Weight: ? 201 lb LMP: ?11/10/2023 GA by LMP: ?25w3d GA by Base: ?? 25w3d ?? NICOLE: 08/16/2024 GA by US: ? 24w3d ?? NICOLE: 08/23/2024 GA Selected: ??25w3d (LMP) NICOLE: ?08/16/2024 Referring MD: Issa Mccall MD Gas Pump Attendant: ??Beena Fitzgerald RDMS CPT4: ? 24894 BMI: ?35.6 Hist/Ind: ? Left Lower Uterine Synechie ?Incomplete Anatomy Screen ?No Genetics ? x1 ?Class II Obesity ?Maternal Crohn's disease MEASUREMENTS & AGE ? GROWTH EVALUATION Measurement ??GA ? Range ? Srce %for GA Ratios ----- ---- ------- BPD ??5.9 cm 24w0d (83f4w-14y9h) Hadl BPD 5% FL/BPD 0.78 (0.71 - 0.87) HC ??22.0 cm 24w0d (24a4y-86v4r) Hadl HC ??2% FL/AC ??0.23 (0.20 - 0.24) AC ??20.2 cm 24w5d (72x4n-06v9y) Hadl AC ??21% HC/AC ??1.09 (1.01 - 1.20) FL ?? 4.6 cm 25w1d (16h7e-18p6x) Hadl FL ??29% CI ? 0.74 (0.70 - 0.86) HL ?? 4.4 cm 26w0d (40j7z-13t6a) Oj HL ??60% Cere 2.8 cm 24w4d (45j3t-23c5g) Hill Cere31% GA for sonogram 24w3d (37r2b-48e9e) ?? Weight Estimate: based on (BPD,HC,AC,FL) Avg ?Weight: 737 gm (629-845gm) Hadloc ? : 1lbs, 9oz ? Normal: 836 gm (627- 1045gm) Hadlo ? Wt% ? 18% for 25w3d Heart Rate: 141 bpm Amniotic Fluid Index: 04.8cm (Deepest Pocket) PROCEDURE, TECHNIQUE Technique: transabdominal EVAL, PLACENTA Presentation: breech Placenta: anterior Heart Rate: 141 bpm Amniotic Fluid Volume: normal Anatomy!Normal!Abnormal!Suboptimal!Prev. Seen!Comments Cranium ?! ?! ?! ?! ? x ?! Mdl (CSP/Thal! ?! ?! ?! ? x ?! Ventricles ?? ! ?! ?! ?! ? x ?! Choroid Plexu! ?! ?! ?! ? x ?! Cerebellum ?? ! ?? x ??! ?! ?! ?! Cisterna M. ??! ?? x ??! ?! ?! ?! Orbits ? ! ?! ?! ?! ? x ?! Profile ?! ?? x ??! ?! ?! ?! Nasal Bone ?? ! ?? x ??! ?! ?! ?! Lungs ?! ?? x ??! ?! ?! ? x ?! 4 Chamber Hea! ?? x ??! ?! ?! ?! LVOT ? ! ?? x ??! ?! ?! ?! RVOT ? ! ?? x ??! ?! ?! ? x ?! 3 Vessel View! ?? x ??! ?! ?! ? x ?! 3 Vessel Trac! ?? x ??! ?! ?! ?! Cross-over ?? ! ?? x ??! ?! ?! ?! Ductal Arch ??! ?? x ??! ?! ?! ?! Aortic Arch ??! ?? x ??! ?! ?! ?! Caval View ?? ! ?? x ??! ?! ?! ?! Situs ?! ?! ?! ?! ? x ?! Diaphragm ?! ?? x ??! ?! ?! ?! Stomach ?! ?? x ??! ?! ?! ? x ?! Bowel ?! ?! ?! ?! ? x ?! Kidneys ?! ?? x ??! ?! ?! ? x ?! Bladder ?! ?? x ??! ?! ?! ? x ?! 3 Vessel Cord! ?! ?! ?! ? x ?! Cord In! ?! ?! ?! ? x ?! Upper Extremi! ?! ?! ?! ? x ?! Hands ?! ?? x ??! ?! ?! ?! Lower Extremi! ?! ?! ?! ? x ?! Feet ? ! ?! ?! ?! ? x ?! External Nabila! ?! ?! ?! ? x ?! Placental Cor! ?! ?! ?! ? x ?! Maternal Adne! ?! ?! ?! ? x ?! CLINICAL SUMMARY A single fetus is seen in breech presentation. ??The measurements today are consistent with appropriate interval growth. ??The NICOLE is based on her LMP and a prior ultrasound examination. ??The amniotic fluid volume is within normal limits. ?? IMPRESSION: Single, live, intrauterine at 25w3d ?? size is within normal limits ?? Amniotic fluid volume: within normal limits ?? No major malformations were seen within the limitations of ultrasound. ?? Lower uterine synechia was not visualized Suspected VSD on prior scan, appears normal today. ??Echo is scheduled for 05/07 at [facility] RECOMMEND: Follow-up U/S @ 32 weeks for growth & as otherwise clinically indicated Thank you for allowing us the opportunity to care for your patient. ?? Bipin Corrales MD <Electronic Signature> ??05/06/2024 12:39pm Issa Mccall MD [facility] ORDERABLES documented in this encounter Visit Diagnoses Diagnosis Hx of section complicating (HCC)- Primary Previous delivery, unspecified as to episode of care or not applicable Maternal Crohn's disease affecting in second trimester (HCC) 25 weeks gestation of (HCC) state, incidental Second (HCC) state, incidental Abnormal ultrasound Abnormal findings on screening Encounter for follow-up ultrasound of anatomy (HCC) documented in this encounter
--- OUTSIDE RECORDS SUMMARY | 2024-08-13 20:04 | XMS_ITS | Encounter Summary ---
Author Organization [facility] Address [address] [facility] [address] Care Team Providers Care Farm Hand Name Role Phone Unavailable Primary Care Provider Unavailabl e Encounter Details Date Type Department Care Team (Latest Contact Info) Description 08/04/2024 Travel Social History Tobacco Use Types Packs/Day [...]
--- OUTSIDE RECORDS SUMMARY | 2024-08-13 20:04 | XMS_ITS | Referral Summary ---
Author Organization [facility] Address [address] [facility] [place] [address] Care Team Providers Care Sand Caster Name Role Phone Unavailable Primary Care Provider Unavailabl e Source Comments [facility],non-owned Affiliates and Associated Physician Practices is amultiple site organization consisting of ambulatory clinics and hospital sitesin [place], [place], [place] and [place]. This disclosure is being madepursuant to the Care Everywhere program and may not contain all information available regarding this patient. Last updated 18.[facility] Encounters Date Type Department Care Team Description 08/04/2024 Travel 08/04/2024 11:15 AM MOLD POLISHER - 08/04/2024 11:59 PM MOLD POLISHER Hospital Encounter [facility] Maternal & Care [address] [place] [id number] Head, Nadine Miller MD Discharge Disposition: Home or Self Care 07/28/2024 8:15 AM MOLD POLISHER - 07/28/2024 11:59 PM MOLD POLISHER Hospital Encounter [facility]aternal [facility] Care [address] [place] [id number] Gokul Lizarraga MD Discharge Disposition: Home or Self Care 07/21/2024 11:06 AM MOLD POLISHER - 07/21/2024 11:59 PM MOLD POLISHER Hospital Encounter [facility]aternal & Care [address] [place] [id number] Issa Mccall MD Stewart, Jeffrey D, MD Discharge Disposition: Home or Self Care 07/14/2024 9:45 AM MOLD POLISHER - 07/14/2024 11:59 PM MOLD POLISHER Hospital Encounter [facility] [address] [place] [id number] Glendy Doss MD Discharge Disposition: Home or Self Care 06/02/2024 9:00 AM CDT - 06/02/2024 11:59 PM CDT Hospital Encounter [facility]aternal & Care [address] [place] [phone] Head, MD Mitchel Lira Corenthian J, MD Discharge Disposition: Home or Self Care from Last 3 Months Allergies No known active allergies Medications * [...] on last me nstrual period of 11/10/2023 Social History Tobacco Use Types Packs/Day Years [...] Comments Blood Pressure 118/61 07/21/2024 11:57 AM MOLD POLISHER Pulse 82 07/21/2024 11:57 AM MOLD POLISHER Temperature - - Respiratory Rate - - Oxygen Saturation - - Inhaled Oxygen Concentration - - Weight 88.9 kg (196 lb) 04/08/2024 11:26 AM CDT Height 162.6 cm (5' 4 ) 04/08/2024 11:26 AM CDT Body Mass Index 33.64 04/08/2024 11:26 AM CDT Plan of Treatment Not on file Procedures Procedure Name Priority Date/Time Associated Diagnosis Comments SONOGRAM - COMPLETE Routine 08/04/2024 1 1:29 AM MOLD POLISHER Hx of section complicating (HCC) Maternal Crohn's disease affecting in second trimester (HCC) Second (HCC) BMI 33.0-33.9,adult Encounter for ultrasound to assess growth (HCC) 29 weeks gestation of (HCC) SONOGRAM - COMPLETE Routine 07/28/2024 8 :38 AM MOLD POLISHER Hx of section complicating (HCC) Maternal Crohn's disease affecting in second trimester (HCC) Second (HCC) BMI 33.0-33.9,adult Encounter for ultrasound to assess growth (HCC) 29 weeks gestation of (HCC) BIOPHYSICAL PROFILE W NST Routine 07/21/2024 11:09 AM MOLD POLISHER Hx of section complicating (HCC) Maternal Crohn's disease affecting in second trimester (HCC) Second (HCC) Obesity affecting in third trimester, unspecified obesity type (HCC) Encounter for screening (HCC) SONOGRAM - COMPLETE Routine 07/14/2024 9 :47 AM MOLD POLISHER Hx of section complicating (HCC) Maternal Crohn's [...] * SONOGRAM - COMPLETE (08/04/2024 11:29 AM MOLD POLISHER) Only the most recent of4 resultswithin the [...] profile is recommended Coding ====== Procedures ? 45743: US Uterus Limited ? 68178: Biophysical Profile W/O NST [employer] PACS Anatomical Region Laterality Modality Other 08/04/2024 11:2 9 AM MOLD POLISHER Issa Mccall MD [facility] ORDERABLES * BIOPHYSICAL PROFILE W NST (07/21/2024 11:09 AM MOLD POLISHER) Linked Results Indication ======== Left lower uterine [...] profile is recommended Coding ====== Procedures ? 30931: US Uterus Limited ? 87924: Biophysical Profile W/O NST [facility] [employer] PACS Anatomical Region Laterality Modality Other 07/21/2024 11:0 9 AM MOLD POLISHER Issa Mccall MD [facility] ORDERABLES from Last 3 Months
--- OUTSIDE RECORDS SUMMARY | 2024-08-13 20:04 | XMS_ITS | Encounter Summary ---
Author Organization [facility] Address [address] [facility] [place] [address] Care Team Providers Care Timing Adjuster Name Role Phone Unavailable Primary Care Provider [...] MD [address] [place] [address] Referral ID Status Reason Start Date Expiration Date Visits Re quested Visits Authorized [id number] Open 05/28/2024 05/28/2025 4 4 * (Routine) - Open Specialty Diagnoses / Procedures Referred By Contac t Referred To Contact Diagnoses Hx of section complicating (HCC) Maternal Crohn's disease affecting in second trimester (HCC) Second (HCC) BMI 33.0-33.9,adult Encounter for ultrasound to assess growth (HCC) 29 weeks gestation of (HCC) Procedures SONOGRAM - COMPLETE Issa Mccall MD [address] [place] [address] Referral ID Status Reason Start Date Expiration Date Visits Re quested Visits Authorized [id number] Open 05/28/2024 05/28/2025 4 4 Reason for Visit * Reason Comments Ultrasound Encounter Details Date Type Department Care Team (Late st Contact Info) Description 06/02/2024 9:00 AM CDT - 06/02/2024 11:59 PM CDT Hospital Encounter [facility] Maternal & Care [address] [place], [place] [id number] Head, Nadine Miller MD [address] [place] [address] GrullonYusef MD [address] [place] [address] Discharge Disposition: Home or Self [...] Associated Diagnosis Comments SONOGRAM - COMPLETE Routine 06/02/2024 9:18 AM CDT Hx of section complicating (HCC) Maternal Crohn's disease affecting in second trimester (HCC) Second (HCC) BMI 33.0-33.9,adult Encounter for ultrasound to assess growth ([facility]) 29 weeks gestation of (HCC) documented in this encounter Results * SONOGRAM - COMPLETE (08/04/2024 11:29 AM CRYSTAL FLAT GRINDER) Linked Results Indication ======== Class II Obesity [...] profile is recommended Coding ====== Procedures ? 47707: US Uterus Limited ? 77750: Biophysical Profile W/O NST TravelAIS Anatomical Region Laterality Modality Other 08/04/2024 11:2 9 AM CRYSTAL FLAT GRINDER Issa Mccall MD [facility] ORDERABLES * SONOGRAM - COMPLETE (07/28/2024 8:38 AM CRYSTAL FLAT GRINDER) Linked Results Indication ======== Left lower uterine [...] normal 8 point Biophysical profile: Follow-up ======== Continue weekly 8 point biophysical profiles (with NST added if needed) Coding ====== Procedures ? 78062: US Uterus Limited ? 68546: Biophysical Profile W/O NST [facility] s0cket PACS Anatomical Region Laterality Modality Other 07/28/2024 8:38 AM CRYSTAL FLAT GRINDER Issa Mccall MD [facility] ORDERABLES * SONOGRAM - COMPLETE (07/14/2024 9:47 AM CRYSTAL FLAT GRINDER) Linked Results Indication ======== Left lower uterine [...] ? lb Method ====== Transabdominal ultrasound. View: limited secondary to challenging acoustic properties ========= Joshi . Number of fetuses: 1 Dating ====== ? Date ?Details ? Gest. age ? NICOLE LMP ?11/10/2023 ? Cycle: regular cycle ?35 w + 2 d ?08/16/2024 Stated NICOLE ? 35 w + 2 d ?08/16/2024 U/S ?07/14/2024 ?based upon AC, BPD, Femur, HC ? 33 w + 5 d ?08/27/2024 Assigned dating based on the LMP, selected on 07/14/2024 ? 35 w + 2 d ?08/16/2024 General Evaluation Cardiac activity present. FHR 128 bpm. Presentation: cephalic Placenta: Placental site: anterior Amniotic fluid: Amount of AF: normal. MVP 4.6 cm. KYLE 15.3 cm. Q1 4.2 cm, Q2 3.2 cm, Q3 4.6 cm, Q4 3.3 cm Biometry BPD ?77.0 ?mm ?30w 6d ??<1% ? Hadlock HC ? 306.1 ?? mm ?34w 1d ??4% ?Hadlock AC ? 298.9 ?? mm ?33w 6d ??19% ? Hadlock Femur ?70.1 ?mm ?36w 0d ??61% ? Hadlock Humerus ?54.9 ?mm ?32w 0d ??4% ?Ninfa HC / AC ?1.02 Weight Calculation: EFW ?2,367 ?? g ? 21% ? Hadlock EFW (lb,oz) ?5 lb 3 ??oz EFW by ? Hadlock ([id number]) Head / Face / Neck Biometry: Cephalic index ? 0.69 ?<1% ? Nicolaides appropriate Growth Overview Exam date ?GA ?BPD (mm) ?HC (mm) AC (mm) FL (mm) HL (mm) EFW (g) 07/14/2024 ? 35w 2d ??77 ?<1% ? 306.1 ?? 4% ?298.9 ?? 19% ? 70.1 ?61% ? 54.9 ?4% ?2367 ?21% Impression ========= Single, live, intrauterine at 35w2d size is appropriate No major malformations were seen within the limits of ultrasound Amniotic fluid volume: normal Follow-up ======== Begin weekly 8 point BPPs at 36 weeks gestation Follow up ultrasound in 4 weeks for serial growth assessment is recommended Coding ====== Procedures ? 45051: US Preg Uterus Follow Up [facility] s0cket PACS Anatomical Region Laterality Modality Other 07/14/2024 9:47 AM CRYSTAL FLAT GRINDER Issa Mccall MD [facility] ORDERABLES * SONOGRAM - COMPLETE (06/02/2024 9:18 AM CDT) Anatomical Region Laterality Modality Other 06/02/2024 9:18 AM CDT Narrative 06/02/2024 10:03 AM CDT ? [facility] ?Maternal and Care Center ?PHONE: ??FAX: Pat. Name: ?OTTO WALTER Pat. No: ?[id number] Study Date: ?? 06/02/2024 ??9:18am , Age: ? 2000, 23 Pregnancies: ?? 2, Para 1 Height: ? 63 in Weight: ? 201 lb LMP: ?11/10/2023 GA by LMP: ?29w2d GA by Base: ?? 29w2d ?? NICOLE: 08/16/2024 GA by US: ? 28w4d ?? NICOLE: 08/21/2024 GA Selected: ??29w2d (LMP) NICOLE: ?08/16/2024 Referring MD: Issa Mccall MD Early Childhood Assistant: ??Stefani Miranda RDMS CPT4: ? 52924 BMI: ?35.6 Hist/Ind: ? Left Lower Uterine Synechiae (not visualized 05/06/24) ?Complete Anatomy Screen ?No Genetics ? x1 ?Class II Obesity ?Maternal Crohn's disease ?Normal Echo MEASUREMENTS & AGE ? GROWTH EVALUATION Measurement ??GA ? Range ? Srce %for GA Ratios ----- ---- ------- BPD ??6.9 cm 27w6d (73t3d-71x1j) Hadl BPD 5% FL/BPD 0.80 (0.71 - 0.87) HC ??26.7 cm 29w0d (27d5w-95g4u) Hadl HC ??12% FL/AC ??0.23 (0.20 - 0.24) AC ??24.6 cm 28w6d (55i3f-17i3a) Hadl AC ??29% HC/AC ??1.09 (0.98 - 1.17) FL ?? 5.6 cm 29w2d (15i9u-77k2u) Hadl FL ??34% CI ? 0.71 (0.70 - 0.86) HL ?? 4.8 cm 28w3d (84j8y-87z2o) Oj HL ??36% GA for sonogram 28w4d (85n0f-19u6q) ?? Weight Estimate: based on (BPD,HC,AC,FL) Hadlock ?Weight: 1306 gm (1115-1496gm) Had ? : 2lbs, 14oz ? Normal: 1433 gm (1075- 1792gm) Had ? Wt% ? 25% for 29w2d Heart Rate: 149 bpm Amniotic Fluid Index: 11.5cm (09.1-23.2) Q1: 1.8cm ??Q2: 3.6cm ??Q3: 2.9cm ??Q4: 3.3cm ?? PROCEDURE, TECHNIQUE Technique: transabdominal EVAL, PLACENTA Presentation: cephalic Placenta: anterior Heart Rate: 149 bpm Amniotic Fluid Volume: normal CLINICAL SUMMARY A single fetus is seen in cephalic presentation. ??The measurements today are consistent with appropriate interval growth. ??The NICOLE selected is based on LMP. ??The amniotic fluid volume is normal. ?? *The left lower uterine synechiae was not visualized again today IMPRESSION: Single, live, intrauterine at 29w2d ?? Amniotic fluid volume: within normal limits ?? size is within normal limits RECOMMEND: Ultrasound in 6 weeks for growth assessment ?? Thank you for allowing us the opportunity to care for your patient. ?? Isauro Grullon MD <Electronic Signature> ??06/02/2024 10:03am Issa Mccall MD [facility] ORDERABLES documented in this encounter Visit Diagnoses Diagnosis Hx of section complicating (HCC)- Primary Previous delivery, unspecified as to episode of care or not applicable Maternal Crohn's disease affecting in second trimester (HCC) Second (HCC) state, incidental BMI 33.0-33.9,adult Body Mass Index 33.0-33.9, adult 28 weeks gestation of (HCC) state, incidental Encounter for ultrasound to assess growth (HCC) 29 weeks gestation of (HCC) state, incidental documented in this encounter
--- OUTSIDE RECORDS SUMMARY | 2024-08-13 20:04 | XMS_ITS | Encounter Summary ---
Author Organization [facility] Address [address] [place] [address] Care Team Providers Care Ammonia Nitrate Operator Name Role Phone Unavailable Primary Care Provider Unavailabl e Reason for Visit * Reason Onset Date Comments Future Appointment 04/11/2024 Encounter Details Date Type Department Care Team (Late st Contact Info) Description 04/11/2024 Telephone [facility] Care [place] [address] [place] [address] Malia Ruiz Future Appointment Social History Tobacco Use Types Packs/Day Years [...]
--- OUTSIDE RECORDS SUMMARY | 2024-08-13 20:04 | XMS_ITS | Encounter Summary ---
Author Organization [facility] Address [address] [facility] [place] [address] Care Team Providers Care Inside Sales Agent Name Role Phone Unavailable Primary Care Provider [...] SONOGRAM - COMPLETE Issa Mccall MD [address] [facility] [address] [place] [address] Referral ID Status Reason Start Date Expiration Date Visits Re quested Visits Authorized [id number] Open 05/28/2024 05/28/2025 4 4 TED GARMENT FINISHER Reason for Visit * Reason Comments Ultrasound Encounter Details Date Type Department Care Team (Late st Contact Info) Description 07/14/2024 9:45 AM KNITTED GARMENT FINISHER - 07/14/2024 11:59 PM KNITTED GARMENT FINISHER Hospital Encounter [facility] Maternal & Care [address] [place] [address] Glendy Doss MD [address] [address] Discharge Disposition: Home or Self Care [...] Associated Diagnosis Comments SONOGRAM - COMPLETE Routine 07/14/2024 9:47 AM KNITTED GARMENT FINISHER Hx of section complicating (HCC) Maternal Crohn's disease affecting in second trimester (HCC) Second (HCC) BMI 33.0-33.9,adult Encounter for ultrasound to assess growth (HCC) 29 weeks gestation of ([facility]) documented in this encounter Results * SONOGRAM - COMPLETE (07/14/2024 9:47 AM KNITTED GARMENT FINISHER) Linked Results Indication ======== Left lower uterine [...] lb 3 ??oz EFW by ? Hadlock ([id number]) Head / Face / Neck Biometry: Cephalic [...] assessment is recommended Coding ====== Procedures ? 74369: US Preg Uterus Follow Up [facility] [employer] PACS Anatomical Region Laterality Modality Other 07/14/2024 9:47 AM KNITTED GARMENT FINISHER Issa Mccall MD [facility] ORDERABLES documented in this encounter Visit Diagnoses Diagnosis Hx of section complicating (HCC)- Primary Previous delivery, unspecified as to episode of care or not applicable Maternal Crohn's disease affecting in second trimester (HCC) Other obesity due to excess calories affecting in third trimester (HCC) Second (HCC) state, incidental Encounter for ultrasound to assess growth (HCC) 35 weeks gestation of (HCC) state, incidental BMI 33.0-33.9,adult Body Mass Index 33.0-33.9, adult 29 weeks gestation of ([facility]) state, incidental documented in this encounter
--- OUTSIDE RECORDS SUMMARY | 2024-08-13 20:07 | XMS_ITS | Encounter Summary ---
Author Organization [facility] Address [address] [place] [address] Care Team Providers Care Condenser Tester Name Role Phone Ciera Saucedo Primary Care Provider [phone] Encounter Details Date Type Department Care Team (Late st Contact Info) Description 09/21/2023 External Device Data STL ABSTRACTION Provider, Abstract NO ADDRESS ON FILE Social History Tobacco Use Types Packs/Day Years Used Date Smoking Tobacco: Never Smokeless Tobacco: Never Alcohol Use Standard Drinks/Week Comments Never 5 (1 standard drink = 0.6 oz pur e alcohol) Sex and Gender Information Value Date Recorded Sex Assigned at Female 04/18/2023 4:58 PM CDT Gender Identity Female 04/18/2023 4:58 PM CDT Sexual Orientation Not on file documented as of this encounter Plan of Treatment Upcoming Encounters Date Type Department Care Team (Late st Contact Info) Description 09/22/2024 8:00 AM FLAT GRINDER OPERATOR Office Visit [facility] [place] [address] [facility] [address] [place] [address] Shreya Platt MD [address] [facility] [address] [place] [address] documented as of this encounter Visit Diagnoses Not on filedocumented in this encounter Care Teams Condenser Tester Relationship Specialty Start Date End Date Ciera Saucedo FNP [address] [place] [address] PCP - General Nurse Practitioner Family 05/24/21 documented as of this encounter
--- OUTSIDE RECORDS SUMMARY | 2024-08-13 20:07 | XMS_ITS | Encounter Summary ---
Author Organization [facility] Address [address] [place] [address] Care Team Providers Care Dairy Manufacturing Technologist Name Role Phone Ciera Saucedo Primary Care Provider [phone] Encounter Details Date Type Department Care Team (Late st Contact Info) Description 09/22/2023 External Device Data STL ABSTRACTION Provider, Abstract [...] st Contact Info) Description 09/22/2024 8:00 AM AP OPERATOR Office Visit [facility] [place] [address] [facility] [address] [place] [address] Shreya Platt MD [address] [facility] [address] [place] [address] documented as of this encounter Visit Diagnoses Not on filedocumented in this encounter Care Teams Dairy Manufacturing Technologist Relationship Specialty Start Date End Date Ciera Saucedo FNP [address] [place] [address] PCP - General Nurse Practitioner Family 05/24/21 documented as of this encounter
--- OUTSIDE RECORDS SUMMARY | 2024-08-13 20:07 | XMS_ITS | Encounter Summary ---
Author Organization [facility] Address [address] [place] [address] Care Team Providers Care Patternmaker Metal Bench Name Role Phone Ciera Saucedo Primary Care Provider [phone] Encounter Details Date Type Department Care Team (Late st Contact Info) Description 01/15/2024 External Device Data STL ABSTRACTION Provider, Abstract [...] st Contact Info) Description 09/22/2024 8:00 AM TILT WALL SUPERVISOR Office Visit [facility] IBD [facility] G[facility] [place] [address] [facility] [address] [place] [address] Shreya Platt MD [address] [facility] [address] [place] [address] documented as of this encounter Visit Diagnoses Not on filedocumented in this encounter Care Teams Patternmaker Metal Bench Relationship Specialty Start Date End Date Ciera Saucedo FNP [address] [place] [address] PCP - General Nurse Practitioner Family 05/24/21 documented as of this encounter
--- OUTSIDE RECORDS SUMMARY | 2024-08-13 20:07 | XMS_ITS | Data Portability ---
Author Organization [facility], Main Office Address [address] [place] [address] Assessment Encounter Date Assessment Date Assessment LastModified by Organization Details LastModified Time 06/07/2023 06/07/2023 spider and reticular veins bilateral lower extremities. Symptomatic. Would recommend injection sclerotherapy . Risks and benefits of the procedure were discussed main risks include skin discoloration and allergic reactions as well as skin necrosis. Patient will consider and will call us if she decides to proceed [email or web address] Not available 06/07/2023 11:12:21 Plan of Treatment Reminders Order Date Submit Date Provider Last Modified By Organization Details Last Modified Time Details Appointments None record ed. Lab None record ed. Referral None record ed. Procedures None record ed. Surgeries None record ed. Imaging None record ed. Medication Orders None record ed. Patient TargetsNo targets recorded. Patient InstructionsNo instructions recorded. Reason for Referral None Reported. Problems Name Problem SNOMED Code Status Onset Date Resolution Date Notes Provider Name and Address Organization Details Recorded Time Bilateral spider veins of lower limbs [id number] 105 Active 2022 Heladio castle MD [address] [place] [address] [address], [place], [address] [facility] 12:47:48 Problem Notes None recorded. Medical Equipment None Reported. Allergies No known drug allergies Medications Name Sig Start Date Stop Date Status Note LastModified by Organization Details LastModified Time levonorgest rel-ethinyl estradiol 0.1 mg-20 mcg tablet TAKE ONE TABLET BY MOUTH ONCE DAILY 12/05 completed Not Available Not Available Not Available hydrocodone 5 mg-acetamin ophen 325 mg tablet TAKE 1 TABLET BY MOUTH EVERY 3 HOURS NEEDED FOR MODERATE PAIN (PAIN SCALE 4-6) active Not Available Not Available No t Available ondansetron HCl 4 mg tablet TAKE 1 TABLET BY MOUTH EVERY 6 HOURS NEEDED FOR NAUSEA AND VOMITING active Not Available Not Available No t Available famotidine 40 mg tablet TAKE 1 TABLET BY MOUTH TWICE A DAY active Not Available Not Available No t Available pantoprazol e 40 mg tablet,angelica yed release TAKE 1 TABLET BY MOUTH EVERY DAY active Not Available Not Available No t Available norethindro ne (contracept shamar) 0.35 mg tablet TAKE 1 TABLET BY MOUTH EVERY DAY active Not Available Not Available No t Available Kariva (28) 0.15 mg-0.02 mg (21)/0.01 mg (5) tablet Take 1 tablet every day by oral route. active Not Available Not Available No t Available Junel FE 09/15 (28) 1 mg-20 mcg (21)/75 mg (7) tablet TAKE 1 TABLET BY MOUTH EVERY DAY active Not Available Not Available No t Available Lo Loestrin Fe 1 mg-10 mcg (24)/10 mcg (2) tablet Take 1 tablet every day by oral route. 12/05 completed Not Available Not Available Not Available Vitals Date Recorded Body height Body mass index (BMI) Body weight Heart rate Oxygen saturation Oxygen saturation in Arterial blood by Pulse oximetry Respiratory rate Body temperature Systolic blood pressure Diastolic blood pressure Provider Name and Address Organization Details Last Updated DateTime 3 162.56 cm 40.3 kg/m2 380664. 21 g 75 /min 98 % 98 % 14 /min 97.4 [degF] 130 mm[Hg] 82 mm[Hg] Lily Conway [facility] 3 10:30:45 Social History None recorded. Functional Status None recorded. Mental Status None recorded. Family History Relationship Description Onset Age of this Age Resolved Age Notes LastModified by Organization Details LastModified Time Mother Venous varices [email or web address] Not available 05/27 10:31:08 Medical History Condition Response HEADACHES/MIGRAINES Y OBESITY Y BOWEL PROBLEMS Y Gynecological HistoryNo gynecological history recorded. Obstetrics History GPAL:G 0 P 0 0 0 0 Past Encounters Encounter ID Performer Location Encounter Start Date Encounter Closed Date Diagnosis/Indication Diagnosis SNOMED-CT Code Diagnosis ICD10 Code [id number] Heladio snowden MD [facility] General Surgery [address] [facility] [place] [address] [place] [address] 06/07/2023 10:21:07 06/07/2023 13:08:34 Bilateral spider veins of lower limbs [id number] I78.1 Health Concerns Section Related Observation LastModified by Organization Detai ls LastModified Time None Recorded Concern Status LastModified by Organization Details LastModified Time None Recorded Advance Directives Directive None Recorded Payers Encounter Date Sequence Insurance Name Policy Number Policy Gallegos Covered Member ID Gallegos Member ID Guarantor Name 06/07/2023 1 [employer] [id number] Jose A Reyesrand [id number] Pennie Aguila Notes Date Note Type Note Provider Name and Address Organization Details Recorded Time 06/07/2023 text/html Patient complains of painful veins lower extremities. She has had for many years. Worse with her last she recently had a child. Denies swelling of the extremities. Worse when standing for long hours. Heladio Kenny MD [address] [facility] [facility] [address], [place], [address], [facility] 06/07/2023 12:48:14 OBGyn Episode No OBEpisode recorded.
--- OUTSIDE RECORDS SUMMARY | 2024-08-13 20:07 | XMS_ITS | Encounter Summary ---
Author Organization [facility] Address [address] [place] [address] [address] Operations Clerk Name Role Phone Ciera Saucedo BARBI Primary Care Provider [phone] Reason for Visit * Reason Comments Abnormal Lab Results WBC of 1.7, on immu nosuppressant for chron's Encounter Details Date Type Department Care Team (Late st Contact Info) Description 05/07/2023 8:52 PM CDT - 05/08/2023 2:52 AM CDT Emergency [facility] Emergency Department [id number] [place] [id number] [place] [address] [place] [address] Other drug-induced neutropenia (Primary Dx) Discharge Disposition: Home or Self Care Social History Tobacco Use Types Packs/Day Years Used Date Smoking Tobacco: Never Smokeless Tobacco: Never Alcohol Use Standard Drinks/Week Comments Yes 5 (1 standard drink = 0.6 oz pur e alcohol) Sex and Gender Information Value Date Recorded Sex Assigned at Female 04/18/2023 4:58 PM CDT Gender Identity Female 04/18/2023 4:58 PM CDT Sexual Orientation Not on file documented as of this encounter Last Filed Vital Signs Vital Sign Reading Time Taken Comments Blood Pressure 125/71 05/07/2023 8:50 PM CDT Pulse 85 05/07/2023 8:50 PM CDT Temperature 36.9 ??C (98.5 ??F) 05/07/2023 8:50 PM CD T Respiratory Rate 14 05/07/2023 8:50 PM CDT Oxygen Saturation 100% 05/07/2023 8:50 PM CDT Inhaled Oxygen Concentration - - Weight 110.7 kg (244 lb) 05/07/2023 8:50 PM CDT Height 162.6 cm (5' 4 ) 05/07/2023 8:50 PM CDT Body Mass Index 41.88 05/07/2023 8:50 PM CDT documented in this encounter Discharge Instructions * Discharge Instructions* Paul Dunn MD - 05/08/2023 1:31 AM CDT Please return to ED for any worsening symptoms including fever, uncontrolled nausea or vomiting, chest pain, shortness of breath, or any other new, changing, or concerning symptoms. Neutropenic diet: Cooked vegetables, canned fruits, and juices are fine. Avoid raw or rare-cooked meat, fish, and eggs. Meat should be cooked to the ???well- done?? stage. All eggs should be thoroughly cooked (no runny yolks). * Attachments The following attachments cannot be sent through Care Everywhere. * Neutropenia ([place]) documented in this encounter Progress Notes * Chiara Evangelista RT - 05/07/2023 11:21 PM CDT IMAGING SERVICES - COMPUTED TOMOGRAPHY MEDICATION and FLUSH PROTOCOL [facility] THIS PROTOCOL IS IMPLEMENTED WHEN AN APPROVED PROVIDER ORDERS A CT SCAN WITH CONTRAST BY PAPER OR ELECTRONIC ORDER. The activated sludge operator will order place an order in EPIC for contrast ???Scope of Practice - no cosignrequired?? . Enter the protocol in the patient???s electronic health record using StreetLight Data: .[facility] Communication Orders: For ordered imaging procedures requiring intravenous access: Initiate a peripheral IV, if not already in place, and discontinue IV prior to discharge. Medication Orders: Sodium chloride 0.9% (normal saline) flush up to 10 mLs PRN for IV evaluation, saline lock, or medication administration. Sodium chloride 0.9% (normal saline) bolus up to 200 mLs PRN for power injection IV evaluation and IV Contrast flush. Procedure Specific Medications: CT ORAL CONTRAST PROTOCOLS FOR ADULTS Use Iopamidol (Isovue-370) for CT scan unless patient has a documented allergy to contrast dye. If allergy present, use Barium Sulfate (Creamy Vanilla Smoothie Readi-Cat 2) for procedure. If at any time the Firefighter Marine has a question about which option to administer, seek clarification from a Radiologist. Iopamidol (Isovue-370): 15ml added to 900mL of clear liquid of patient???s choice. Preferred route is oral. May use nasoenteric tube if needed. Administer 900mL of the diluted Iopamidol (Isovue-370),orally, one time only. Barium Sulfate (Creamy Vanilla Smoothie Readi-Cat 2) oral suspension: Preferred route is oral. May use nasoenteric tube if needed. Administer 450mL of barium sulfate, orally, one time only. For Enterography, give patient 450ml Breeza, a flavored beverage. CT ORAL CONTRAST PROTOCOLS FOR PEDIATRICS Pediatrics = up to age 18 Pediatric Radiologist will approve of one of the following products selected for procedure. Barium Sulfate (Creamy Vanilla Smoothie Readi-Cat 2) oral suspension: preferred route is oral. May use nasoenteric tube if needed. to 3 months Administer up to 90mL of Barium Sulfate, Orally, one time only 4 months to 1 year old Administer up to 240mL of Barium sulfate , Orally, One Time Only 1 year old to 5 years old Administer up to 360mL of Barium sulfate , Orally, One Time Only 5 years old to 10 years old Administer up to 480mL of Barium sulfate , Orally, One Time Only Over 10 years old Administer up to 600mL of Barium sulfate , Orally, One Time Only Iopamidol (Isovue-370)oral solution Dilute 25mL of Iopamidol with 480mL of clear liquid of patient???s choice. Administer the diluted solution per age as follows: Preferred route is orally. May use nasoenteric tube if needed. Send any remaining diluted Iopamidol solution with the patient to CT. [place] Administer 45mL of diluted Iopamidol oral solution, orally every 30 minutes x 2 doses. 1 month to 1 year old Administer 120mL of diluted Iopamidol oral solution, orally every 30 min x 2 doses. 1 year old to 5 years old Administer 180mL of diluted Iopamidol orally every 30 min x 2 doses. 5 years old to 10 years old Administer 240mL of diluted Iopamidol orally every 30 min x 2 doses. Over 10 years old Administer 300mL of diluted Iopamidol orally every 30 min x [address] IV CONTRAST PROTOCOLS ADULTS: (If patient is less than 55kg and confirm dose with radiologist) o Iopamidol (Isovue-370): Administer up to 2.2mL/kg (to MAX of 150mL) of Iopamidol 76%, intravenously, one time only PEDIATRICS: Use weight based dosing if patient is less than 55kg and confirm dose with radiologist.Eleele to 15 years old Administer up to 2.2mL/kg (to MAX of 80 mL) of Iopamidol (Isovue-370) 76%, intravenously, one time only 15 years old and older Administer up to 2.2mL/kg (to MAX of 125mL) of Iopamidol (Isovue-370) 76%, intravenously, one time only Initiating Department(s): Imaging Services - CT Approved by: Liseth Toledo Date: 02/2022 Approved by: Rd Mckenzie MD, Lang Path Therapist Date: 02/2022 Approved by: P&T Committee Date: 02/2022 Approved by: Medical Executive Committee Date: 02/2022 documented in this encounter ED Notes * Paul Dunn MD - 05/07/2023 8:43 PM CDT HISTORY OF PRESENT ILLNESS Pennie Aguila, a 22 y.o. female presents to the ED with a Chief Complaint of Abnormal Lab Results Subjective Physician at bedside: 2141 Pennie Aguila is a 22 y.o. female, with past medical history of Crohn's disease, GERD and IBD, who presents to the emergency department with low white blood cell count which began this morning. The patient states that she got an infliximab infusion this morning and had a routine blood test after, which showed a low WBC. The patient reports that her GI doctor recommended that she visit theED. The patient states that she has been getting infusions for the past two years for Crohn's disease. She reports having ongoing lower abdominal pain for the past year, and worsened after a caesarean section three months ago. She states that her bloody stools resolved a few weeks ago. The patient states that she had a rash yesterday after standing outside. The patient denies any fever, chills, body aches, dysuria, hematuria, or recent changes in medications. PCP: Ciera Saucedo FNP REVIEW OF SYSTEMS Review of Systems Constitutional: Negative for chills, fatigue and fever. HENT: Negative for congestion, rhinorrhea and sore throat. Eyes: Negative for visual disturbance. Respiratory: Negative for cough and shortness of breath. Cardiovascular: Negative for chest pain and palpitations. Gastrointestinal: Positive for abdominal pain. Negative for blood in stool, constipation, diarrhea,nausea and vomiting. Genitourinary: Negative for dysuria, vaginal bleeding and vaginal discharge. Musculoskeletal: Negative for myalgias, neck pain and neck stiffness. Skin: Negative for color change and rash. Neurological: Negative for dizziness, weakness, light-headedness and headaches. PAST MEDICAL HISTORY REVIEWED MEDICAL: Patient has a past medical history of Crohn's disease, GERD (gastroesophageal reflux disease) (03/31/2021), and Inflammatory bowel disease (03/31/2021). SURGICAL: Patient has a past surgical history that includes colonoscopy (03/31/2021) and upper endoscopy (03/31/2021). FAMILY: Patient's family history includes Cancer in her maternal uncle; Crohn's Disease in her sister; Diabetes in her paternal uncle; Inflammatory Bowel Disease in her sister. SOCIAL: reports that she has never smoked. She has never used smokeless tobacco. She reports current alcohol use of about 5.0 standard drinks of alcohol per week. She reports being sexually active and has had partner(s) who are male. She reports using the following method of control/protection: Condom. She reports that she does not use drugs. No history on file. Social History Other Topics Concern Not on file ALLERGIES Patient has no known allergies. HOME MEDICATIONS Patient's Home Medications Current Home Medications CYCLOBENZAPRINE (FLEXERIL) 10 MG TABLET FAMOTIDINE (PEPCID) 40 MG TABLET HYOSCYAMINE 0.125 MG TABLET, SUBLINGUAL PANTOPRAZOLE (PROTONIX) 40 MG TABLET, DELAYED RELEASE (E.C.) PANTOPRAZOLE (PROTONIX) 40 MG TABLET, DELAYED RELEASE (E.C.) Medications Modified during this Encounter No medications on file Medications Discontinued during this Encounter No medications on file Objective PHYSICAL EXAM INITIAL VS BP: 125/71 (05/07/232049), Heart Rate: 85 bpm (05/07/232049), Resp: 14 (05/07/232049), Pulse: 85(05/07/232049), Temp: 98.5 ??F (36.9 ??C) (05/07/232049), Temp src: (not recorded), SpO2: 100 % (05/07/232049), Height: 5' 4 (162.6 cm) (05/07/232049), Weight: 110.7 kg (244 lb) (05/07/232049),BMI (Calculated): (!) 41.86 (05/07/232049) No LMP recorded. Physical Exam Vitals reviewed. Constitutional: General: She is not in acute distress. Appearance: She is not diaphoretic. HENT: Head: Normocephalic and atraumatic. Mouth/Throat: Mouth: Mucous membranes are moist. Eyes: General: Right eye: No discharge. Left eye: No discharge. Conjunctiva/sclera: Conjunctivae normal. Cardiovascular: Rate and Rhythm: Normal rate and regular rhythm. Pulses: Normal pulses. Heart sounds: No murmur heard. Pulmonary: Effort: Pulmonary effort is normal. No respiratory distress. Breath sounds: Normal breath sounds. Abdominal: General: There is no distension. Palpations: Abdomen is soft. Tenderness: There is no abdominal tenderness. Musculoskeletal: General: No swelling. Normal range of motion. Cervical back: Normal range of motion. Skin: General: Skin is warm and dry. Findings: No rash. Neurological: General: No focal deficit present. Mental Status: She is alert and oriented to person, place, and time. DIAGNOSTICS LAB: CBC WITH DIFFERENTIAL - Abnormal Result Value WBC 2.5 (*) NRBCS 1 RBC 4.23 HEMOGLOBIN 10.8 (*) HEMATOCRIT 34.1 (*) MCV 80.6 (*) MCH 25.5 (*) MCHC 31.6 (*) RDW 14.7 (*) PLATELETS 195 MPV 8.7 NEUTROPHILS 23 LYMPHOCYTES 63 MONOCYTES 13 EOSINOPHILS 0 BASOPHILS 1 NEUTROPHIL ABSOLUTE 0.60 (*) LYMPHOCYTE ABSOLUTE 1.60 MONOCYTE ABSOLUTE 0.30 EOSINOPHIL ABSOLUTE 0.00 BASOPHILS ABSOLUTE 0.00 COMPREHENSIVE METABOLIC PANEL - Abnormal SODIUM 138 POTASSIUM 3.9 CHLORIDE 105 CO2 24 CALCIUM 8.7 BUN 11 CREATININE 0.73 GLUCOSE 94 TOTAL PROTEIN 7.4 ALBUMIN 4.2 BILIRUBIN TOTAL <0.2 (*) ALKALINE PHOSPHATASE 61 AST 28 ALT 32 GFR >60 ANION GAP 9 HCG QUALITATIVE, BLOOD - Normal HCG QUAL, BLOOD Negative RADIOLOGY: CT ABDOMEN PELVIS W CONTRAST Radiologist Impression IMPRESSION: 1. No acute intra-abdominal or pelvic process. 2. No bowel wall thickening, hyperenhancement, or bowel dilatation to indicate active inflammation or obstruction. The examination was performed with the adjustment of mA according to the patient size and/or the use of Iterative Reconstruction Technique. DICTATION LOCATION: Location 4 EKG: PROCEDURES Procedures MEDICAL DECISION MAKING AND PLAN OF CARE ED Course as of 05/08/23 0239 SunMay 07, 2023 214 Patient seen by ED physician at bedside. History obtained and physical exam performed. Updatedthe patient on the expected course of treatment. They are agreeable. [GG] ED Course User Index [GG] Anat Santamaria, Loraine Medical Decision Making Amount and/or Complexity of Data Reviewed External Data Reviewed: notes. Labs: ordered. Decision-making details documented in ED Course. Radiology: ordered. Decision-making details documented in ED Course. Summary: 22-year-old female with history of Crohn's disease is sent in for evaluation of abnormal white blood cell count. She periodically gets infusion of infliximab which has cytopenias as a known side effect. She denies any complaints at this time. She notes that her abdominal pain is at baseline, she denies any blood in her stools, she denies any fevers. Reportedly had blood drawn after infliximab infusion today and was noted to have ANC 0.3. Afebrile, vital signs stable, no acute distress.Plan for labs, CT abdomen/pelvis. Labs from outside hospital reviewed noted to have leukopenia with ANC 0.3, labs this evening with leukopenia white blood cell count has increased to 2.5 with ANC 0.6, otherwise normal cell counts. Chemistry panel with normal electrolytes and renal function. CT abdomen/pelvis is unremarkable. Patient is well-appearing and hemodynamically stable. Attempted to contact GI via their exchange however unfortunately I was unable to reach them for any further discussion. The patient overall is well-appearing, afebrile, and denies any symptoms at this time. This is likely medication induced and her work-up is other sibley reassuring at this time. Recommend that she call her GI physician first thing in the morning for any further recommendations, however she would not benefit from hospitalization at this time, will discharge home with close outpatient follow-up. Neutropenic precautions and diet recommendations were given. Discussed all findings recommendation with the patient, she is agreeable with this plan, strict return precaution discussed, all questions answered. Differential diagnosis includes, but is not limited to, neutropenia, pancytopenia, neutropenic fever, medication side effect, other. By virtue of history and physical, some of these diagnoses can be excluded. Non-ED notes reviewed: GI note from today. Additional information obtained from independent historian, None. The following social determinants of health potentially complicated the patient???s course and wereconsidered in my plan of care: None Pt is medically stable for discharge at this time. I have given the patient instructions regarding diagnosis, expectations, follow up, and return precautions. I explained to the patient that emergent conditions may arise and to return to the ER for new, worsening, or any persistent conditions. I've explained the importance of following up with Primary Care Physician-(or the referral physician listed below) as instructed. The patient verbalized understanding of the discharge instructions. Clinical Scoring & Consults Medications Administered During the ED Stay from 05/07/20232043 to 05/08/2023 0239 Date/Time Order Dose Route Action 05/07/2023 2322 CDT iopamidoL (ISOVUE-370) 76% injection (drawn from multi-use bulk pack) 80 mL 80 mL IV Contrast Given . New Prescriptions for this Encounter LAST VS BP: 125/71 (05/07/232049), Heart Rate: 85 bpm (05/07/232049), Resp: 14 (05/07/232049), Pulse: 85(05/07/232049), Temp: 98.5 ??F (36.9 ??C) (05/07/232049), Temp src: (not recorded), SpO2: 100 % (05/07/232049) CLINICAL IMPRESSION Final diagnoses: [D70.2] Other drug-induced neutropenia (Primary) DISPOSITION, EDUCATION AND MEDICATION RECONCILIATION Medications reconciled. See after visit summary for patient education on discharged patients. ED Disposition ED Disposition Discharge Condition Stable User Paul Dunn MD Date/Time SunMay 08, 2023 1:31 AM Comment -- ATTESTATION STATEMENTS This note is prepared by Anat Santamaria acting as a scribe for Paul Dunn MD. The scribe's documentation has been prepared under my direction and personally reviewed by me in its entirety. I confirm that the note above accurately reflects all work, treatment, procedures, and medical decision making performed by me. Despite this, dictation software may have been utilized, andtherefore errors or substitutions may occur. Paul Dunn MD, MPH Emergency Medicine [facility] documented in this encounter Plan of Treatment Upcoming Encounters Date Type Department Care Team (Late st Contact Info) Description 09/22/2024 8:00 AM CAR FERRY MASTER Office Visit [facility] [place] [address] [facility] [address] [place] [address] Shreya Platt MD [address] [facility] [address] [place] [address] documented as of this encounter Procedures Procedure Name Priority Date/Time Associated Diagnosis Comments CT ABDOMEN PELVIS W CONTRAST Stat 05/07/2023 11:20 PM CDT HCG QUALITATIVE, SERUM Stat 9:34 PM CDT CBC WITH DIFFERENTIAL Stat 05/07/2023 9:34 PM CDT COMPREHENSIVE METABOLIC PANEL Stat 05/07/2023 9:34 PM CDT documented in this encounter Results * CT ABDOMEN PELVIS W CONTRAST (05/07/2023 11:20 PM CDT) Anatomical Region Laterality Modality Abdomen Computed Tomogra phy 05/07/2023 11:2 2 PM CDT Impressions 05/07/2023 11:46 PM CDT IMPRESSION: ?? 1. ??No acute intra-abdominal or pelvic process. 2. No bowel wall thickening, hyperenhancement, or bowel dilatation to indicate active inflammation or obstruction. ?? The examination was performed with the adjustment of mA according to the patient size and/or the use of Iterative Reconstruction Technique. ?? DICTATION LOCATION: Location 4 Narrative 05/07/2023 11:[address] ABDOMEN AND PELVIS WITH IV CONTRAST WITH REFORMATTED IMAGES DATE: 05/07/2023 11:20 PM HISTORY: Abdominal pain, acute, nonlocalized. ? COMPARISON: 05/01/2023 CT enterography. ?? TECHNIQUE: Multislice helical with multiplanar reformats. ? CONTRAST: IOPAMIDOL 76 % INTRAVENOUS SOLUTION (MULTI-DOSE BULK PACK) Given:80 mL FINDINGS: LOWER CHEST: No acute consolidation in the visible lung bases. LIVER: Normal portal and hepatic vein enhancement. Hepatic steatosis. No focal liver lesions. ?? GALLBLADDER AND BILIARY: No calcified gallstones. No CT apparent gallbladder wall thickening or surrounding fluid. No biliary ductal dilation. ?? PANCREAS: Homogeneous pancreas. No ductal dilation or pancreatic centered inflammatory changes. ?? SPLEEN: No focal splenic lesions. ?? ADRENAL GLANDS: Symmetric. No adrenal mass. ?? KIDNEYS/URETERS: Unchanged probable subcentimeter cyst in the left kidney. No enhancing mass or hydronephrosis. ?? URINARY BLADDER: Unremarkable for degree of distention. ?? REPRODUCTIVE ORGANS: Normal for age. ?? STOMACH AND BOWEL: The stomach appears normal for the degree of distention. The small bowel loops are nondilated without convincing inflammatory thickening. ??The colon is normal in caliber without convincing inflammatory thickening. The appendix is normal. ?? VESSELS: No aortic aneurysm. ??No major aortic branch occlusion. ?? LYMPH NODES: No pathologic lymph node enlargement. ?? PERITONEUM/RETROPERITONEUM: No pneumoperitoneum. No substantive free fluid or organized fluid collections. ABDOMINAL WALL: Small umbilical hernia contains fat. ?? BONES: No destructive osseous lesions. ADDITIONAL: None. Procedure Note Ildefonso Vizcarra III, MD - 05/07/2023 CT ABDOMEN AND PELVIS WITH IV CONTRAST WITH REFORMATTED IMAGES DATE: 05/07/2023 11:20 PM HISTORY: Abdominal pain, acute, nonlocalized. COMPARISON: 05/01/2023 CT enterography. TECHNIQUE: Multislice helical with multiplanar reformats. CONTRAST: IOPAMIDOL 76 % INTRAVENOUS SOLUTION (MULTI-DOSE BULK PACK) Given:80 mL FINDINGS: LOWER CHEST: No acute consolidation in the visible lung bases. LIVER: Normal portal and hepatic vein enhancement. Hepatic steatosis. No focal liver lesions. GALLBLADDER AND BILIARY: No calcified gallstones. No CT apparent gallbladder wall thickening or surrounding fluid. No biliary ductal dilation. PANCREAS: Homogeneous pancreas. No ductal dilation or pancreatic centered inflammatory changes. SPLEEN: No focal splenic lesions. ADRENAL GLANDS: Symmetric. No adrenal mass. KIDNEYS/URETERS: Unchanged probable subcentimeter cyst in the left kidney. No enhancing mass or hydronephrosis. URINARY BLADDER: Unremarkable for degree of distention. REPRODUCTIVE ORGANS: Normal for age. STOMACH AND BOWEL: The stomach appears normal for the degree of distention. The small bowel loops are nondilated without convincing inflammatory thickening. The colon is normal in caliber without convincing inflammatory thickening. The appendix is normal. VESSELS: No aortic aneurysm. No major aortic branch occlusion. LYMPH NODES: No pathologic lymph node enlargement. PERITONEUM/RETROPERITONEUM: No pneumoperitoneum. No substantive free fluid or organized fluid collections. ABDOMINAL WALL: Small umbilical hernia contains fat. BONES: No destructive osseous lesions. ADDITIONAL: None. IMPRESSION: 1. No acute intra-abdominal or pelvic process. 2. No bowel wall thickening, hyperenhancement, or bowel dilatation to indicate active inflammation or obstruction. The examination was performed with the adjustment of mA according to the patient size and/or the use of Iterative Reconstruction Technique. DICTATION LOCATION: Location [address] ORDERABLES * HCG QUALITATIVE, BLOOD (05/07/2023 9:34 PM CDT) HCG QUAL, BLOOD Negative Negative 05/07/2023 10:25 PM CDT [facility] Blood Venipuncture / Unknown 05/07/2023 9:34 PM CDT 05/07/2023 10:24 PM CDT Paul Dunn MD CHEMISTRY ORDERABLES [facility] CLIA# [id number] [place] [address] * (ABNORMAL) COMPREHENSIVE METABOLIC PANEL (05/07/2023 9:34 PM CDT) SODIUM 138 136 - 145 mmol/L 05/07/2023 10:36 PM CDT [facility] POTASSIUM 3.9 3.4 - 5.1 mmol/L 05/07/2023 10:36 PM CDT [facility] CHLORIDE 105 98 - 107 mmol/L 05/07/2023 10:36 PM CDT [facility] CO2 24 22 - 29 mmol/L 05/07/2023 10:36 PM CDT [facility] CALCIUM 8.7 8.6 - 10.4 mg/dL 05/07/2023 10:36 PM CDT [facility] BUN 11 6 - 20 mg/dL 05/07/2023 10:36 PM CDT [facility] CREATININE 0.73 0.51 - 0.95 mg/dL 05/07/2023 10:36 PM CDT [facility] GLUCOSE 94 74 - 99 mg/dL 05/07/2023 10:36 PM CDT [facility] TOTAL PROTEIN 7.4 6.3 - 8.7 g/dL 05/07/2023 10:36 PM CDT [facility] ALBUMIN 4.2 3.5 - 5.2 g/dL 05/07/2023 10:36 PM CDT [facility] BILIRUBIN TOTAL <0.2(L) 0.3 - 1.2 mg/dL 05/07/2023 10:36 PM CDT [facility] ALKALINE PHOSPHATASE 61 40 - 150 U/L 05/07/2023 10:36 PM CDT [facility] AST 28 0 - 33 U/L 05/07/2023 10:36 PM CDT [facility] ALT 32 0 - 33 U/L 05/07/2023 10:36 PM CDT [facility] GFR >60 >=60 mL/min/1.7 3 sq meter 05/07/2023 10:36 PM CDT [facility] Comment:eGFR calculated with 2020 CKD-EPI equation. Vegetarian diet, extremely high or low muscle mass, and may affect results. Cystatin C with Glomerular Filtration Rate is a suitable alternative for these patients. ANION GAP 9 8 - 16 mmol/L 05/07/2023 10:36 PM CDT [facility] Blood Venipuncture / Unknown 05/07/2023 9:34 PM CDT 05/07/2023 10:17 PM CDT Paul Dunn MD CHEMISTRY ORDERABLES [facility] [facility] CLIA# [id number] [place] [address] * (ABNORMAL) CBC WITH DIFFERENTIAL (05/07/2023 9:34 PM CDT) WBC 2.5(L) 4.5 - 10.5 K/uL 05/07/2023 10:19 PM CDT [facility] NRBCS 1 % 05/07/2023 10:19 PM CDT [facility] RBC 4.23 3.90 - 4.90 M/uL 05/07/2023 10:19 PM CDT [facility] HEMOGLOBIN 10.8(L) 11.8 - 14.8 g/dL 05/07/2023 10:19 PM CDT [facility] HEMATOCRIT 34.1(L) 35.5 - 44.0 % 05/07/2023 10:19 PM CDT [facility] MCV 80.6(L) 82.0 - 99.0 fL 05/07/2023 10:19 PM CDT [facility] MCH 25.5(L) 27.8 - 34.5 pg 05/07/2023 10:19 PM CDT [facility] MCHC 31.6(L) 32.5 - 35.5 g/dL 05/07/2023 10:19 PM CDT [facility] RDW 14.7(H) 11.5 - 14.5 % 05/07/2023 10:19 PM CDT [facility] PLATELETS 195 160 - 420 K/uL 05/07/2023 10:19 PM CDT [facility] MPV 8.7 8.7 - 12.7 fL 05/07/2023 10:19 PM CDT [facility] NEUTROPHILS 23 % 05/07/2023 10:19 PM CDT [facility] LYMPHOCYTES 63 % 05/07/2023 10:19 PM CDT [facility] MONOCYTES 13 % 05/07/2023 10:19 PM CDT [facility] EOSINOPHILS 0 % 05/07/2023 10:19 PM CDT [facility] BASOPHILS 1 % 05/07/2023 10:19 PM CDT [facility] NEUTROPHIL ABSOLUTE 0.60(L) 1.90 - 7.00 K/uL 05/07/2023 10:19 PM CDT [facility] LYMPHOCYTE ABSOLUTE 1.60 0.70 - 4.50 K/uL 05/07/2023 10:19 PM CDT [facility] MONOCYTE ABSOLUTE 0.30 0.10 - 1.30 K/uL 05/07/2023 10:19 PM CDT [facility] EOSINOPHIL ABSOLUTE 0.00 0.00 - 0.70 K/uL 05/07/2023 10:19 PM CDT [facility] BASOPHILS ABSOLUTE 0.00 0.00 - 0.20 K/uL 05/07/2023 10:19 PM CDT [facility] Blood Venipuncture / Unknown 05/07/2023 9:34 PM CDT 05/07/2023 10:14 PM CDT Paul Dunn MD HEMATOLOGY ORDERABLE S [facility] CLIA# [id number] [place] [address] documented in this encounter Visit Diagnoses Diagnosis Other drug-induced neutropenia- Primary documented in this encounter Administered Medications Inactive Administered Medications - up to 3 most recent administrations Medication Order MAR Action Action Date Dose Rate Site iopamidoL (ISOVUE-370) 76% injection (drawn from multi-use bulk pack) 80 mL 80 mL, IV, INTRA-PROCEDURE ONCE, 1 dose, Starting on Sun05/07/23 at 2321, Until Sun05/08/23 at 0452, Routine iopamidoL (ISOVUE-370) 76% injection (drawn from multi-use bulk pack) 80 mL 80 mL, IV, INTRA-PROCEDURE ONCE, 1 dose, Starting on Sun05/07/23 at 2322, Until Sun05/07/23 at 2322, Routine Contrast Given 05/07/2023 11:22 PM CDT 80 mL documented in this encounter Active and Recently Administered Medications Times are shown in CDT. Scheduled Medication Order 05/06/2023 05/07/2023 05/08/2023 iopamidoL (ISOVUE-370) 76% injection (drawn from multi-use bulk pack) 80 mL 80 mL, IV, INTRA-PROCEDURE ONCE, 1 dose, Starting on Sun05/07/23 at 2321, Until Sun05/08/23 at 0452, Routine iopamidoL (ISOVUE-370) 76% injection (drawn from multi-use bulk pack) 80 mL (COMPLETED) 80 mL, IV, INTRA-PROCEDURE ONCE, 1 dose, Starting on Sun05/07/23 at 2322, Until Sun05/07/23 at 2322, Routine 2322 (Contrast Given - Provider: Chiara Evangelista RT) documented in this encounter Care Teams Court Operations Clerk Relationship Specialty Start Date End Date Ciera Saucedo FNP [address] [place] [address] PCP - General Nurse Practitioner Family 05/24/21 documented as of this encounter
--- OUTSIDE RECORDS SUMMARY | 2024-08-13 20:07 | XMS_ITS | Encounter Summary ---
Author Organization [facility] Address [address] [place] [address] Care Team Providers Care Former Hand Name Role Phone Ciera Saucedo Primary Care Provider [phone] Encounter Details Date Type Department Care Team (Late st Contact Info) Description 04/22/2024 External Device Data STL ABSTRACTION Provider, Abstract [...] st Contact Info) Description 09/22/2024 8:00 AM SASH INSTALLER Office Visit [facility] [place] [address] [address] [place] [address] Shreya Platt MD [address] [facility] [address] [place] [address] documented as of this encounter Visit Diagnoses Not on filedocumented in this encounter Care Teams Former Hand Relationship Specialty Start Date End Date Ciera Saucedo FNP [address] [place] [address] PCP - General Nurse Practitioner Family 05/24/21 documented as of this encounter
--- OUTSIDE RECORDS SUMMARY | 2024-08-13 20:07 | XMS_ITS | Encounter Summary ---
Author Organization [facility] Address [address] [place] [address] Care Team Providers Care Refrigeration Engine Operator Name Role Phone Ciera Saucedo Primary Care Provider [phone] Encounter Details Date Type Department Care Team (Late st Contact Info) Description 01/01/2024 External Device Data STL ABSTRACTION Provider, Abstract [...] st Contact Info) Description 09/22/2024 8:00 AM CLAIM TRAINEE Office Visit [facility] [place] [address] [address] [place] [address] Shreya Platt MD [address] [facility] [address] [place] [address] documented as of this encounter Visit Diagnoses Not on filedocumented in this encounter Care Teams Refrigeration Engine Operator Relationship Specialty Start Date End Date Ciera Saucedo FNP [address] [place] [address] PCP - General Nurse Practitioner Family 05/24/21 documented as of this encounter
--- OUTSIDE RECORDS SUMMARY | 2024-08-13 20:07 | XMS_ITS | Encounter Summary ---
Author Organization [facility] Address [address] [place] [address] Care Team Providers Care Nutritional Yeast Supervisor Name Role Phone Ciera Saucedo Primary Care Provider [phone] Encounter Details Date Type Department Care Team [...] st Contact Info) Description 09/22/2024 8:00 AM PRODUCTION WELDING SUPERVISOR Office Visit [facility] [place] [address] [facility] [address] [place] [address] Shreya Platt MD [address] [facility] [address] [place] [address] documented as of this encounter Visit Diagnoses Not on filedocumented in this encounter Care Teams Nutritional Yeast Supervisor Relationship Specialty Start Date End Date Ciera Saucedo FNP [address] [place] [address] PCP - General Nurse Practitioner Family 05/24/21 documented as of this encounter
--- OUTSIDE RECORDS SUMMARY | 2024-08-13 20:07 | XMS_ITS | Encounter Summary ---
Author Organization [facility] Address [address] [place] [address] Dr. Deleon: [place] [address] Care Team Providers Care Cold Rolling Machine Setter Name Role Phone Ciera Saucedo BARBI Primary Care Provider [phone] Encounter Details Date Type Department Care Team (Late st Contact Info) Description 09/05/2023 Orders Only Initial Department [address] [place] [address] Dr ZABALAN: [place] [address] Provider, Historical Social History Tobacco Use Types Packs/Day Years Used Date Smoking Tobacco: Never Smokeless Tobacco: Never Alcohol Use Standard Drinks/Week Comments Never 5 (1 standard drink = 0.6 oz pur e alcohol) Sex and Gender Information Value Date Recorded Sex Assigned at Female 04/18/2023 4:58 PM CDT Gender Identity Female 04/18/2023 4:58 PM CDT Sexual Orientation Not on file documented as of this encounter Miscellaneous Notes * Result Encounter Note - Kendra Brody ANP - 09/10/2023 8:21 AM PLANT SPECIALIST High IFX level T SPECIALIST * Result Encounter Note - Kendra Brody ANP - 09/06/2023 9:59 AM PLANT SPECIALIST BERENICE - cannot tolerate oral iron d/t severe constipation. Will order infusions. Vit D def - start Ergo Anemia Low B12 - recommend 1 B12 injection same day as iron infusion #1 T SPECIALIST documented in this encounter Plan of Treatment Upcoming Encounters Date Type Department Care Team (Late st Contact Info) Description 09/22/2024 8:00 AM PLANT SPECIALIST Office Visit [facility] [place] [address] [place] [address] Shreya Platt MD [address] [place] [address] [place] [address] documented as of this encounter Procedures Procedure Name Priority Date/Time Associated Diagnosis Comments INFLIXIMAB LEVEL PANEL Routine 12:34 PM PLANT SPECIALIST QUANTIFERON TB GOLD Routine 09/05/2023 1 2:34 PM PLANT SPECIALIST IRON, TIBC, AND PERCENT SATURATION Routine 09/05/2023 12:34 PM PLANT SPECIALIST CBC WITH DIFFERENTIAL Routine 09/05/2023 12:34 PM PLANT SPECIALIST VITAMIN D 25 HYDROXY Routine 09/05/2023 12:34 PM PLANT SPECIALIST C-REACTIVE PROTEIN Routine 09/05/2023 12 :34 PM PLANT SPECIALIST FERRITIN Routine 09/05/2023 12:34 PM PLANT SPECIALIST VITAMIN B12 LEVEL Routine 09/05/2023 12: 34 PM PLANT SPECIALIST COMPREHENSIVE METABOLIC PANEL Routine 09/05/2023 12:34 PM PLANT SPECIALIST documented in this encounter Results * INFLIXIMAB LEVEL PANEL (09/05/2023 12:34 PM PLANT SPECIALIST) INFLIXIMAB LEVEL, IBD >50.0 mcg/mL [facility], INFLIXIMAB AB, IBD <10 <10 AU [facility], INFLIXIMAB INTERPRETATION SEE NOTE [facility], Comment: The infliximab and infliximab anti-drug antibody (ADA) assays were initially designed for the detection of the infliximab drug and its ADA. Because infliximab and its biosimilars share the same amino acid sequence and have essentially the same molecular structure, these assays were subsequently validated for the detection of infliximab-dyyb (inflectra) and inflectra ADA with no analytical differences between these two. Based on the results of clinical equivalence studies, the FDA and the [place] [employer] advocate applying infliximab clinical guidance to the use of its biosimilars. The [place] [employer] recommends optimal infliximab trough concentration of 5.0 mcg/mL or greater in patients with active IBD. Data from separate clinical studies suggest an optimal infliximab trough concentration greater than 3.8 mcg/mL or 6.0-10.0 mcg/mL. Subtherapeutic infliximab levels may be due to a patient not yet achieving a steady state trough level early in therapy, inadequate dosing, a dosing interval that is too long, or accelerated infliximab clearance. Accelerated infliximab clearance may be explained by the presence of infliximab anti-drug antibody or rheumatoid factor in the patient's serum, or may be caused by other diseases that indirectly lead to immunoglobulin loss (i.e. kidney disease, protein-losing gastroenteropathy). If infliximab level is subtherapeutic but total infliximab anti-drug antibody is not detected: Patients with a subtherapeutic infliximab trough level, but no anti-drug antibody, may benefit from an increased infliximab dose. If infliximab level is subtherapeutic and total infliximab anti-drug antibody is detected: Detectable serum infliximab anti-drug antibody may cause accelerated infliximab clearance leading to reduced trough levels and a compromised clinical response. Such patients are more likely to benefit from a switch in biologic therapy than from an increase in infliximab dose. If infliximab level is therapeutic and total infliximab anti-drug antibody is not detected: In patients who do not respond or who lose their clinical response, mucosal inflammation is likely to be driven by a process that is not TNF alpha dependent. A switch to a different class of therapy should be considered. If infliximab level is therapeutic and total infliximab anti-drug antibody is detected: If the patient is responding clinically, the detected anti-drug antibody may not be clinically significant because the detected anti-drug antibody may not be functional or the level is inadequate to accelerate infliximab clearance. Anti-drug antibody may disappear over time or increase, and, if increased, may cause subtherapeutic infliximab levels and a loss of response in the future. Patients with a loss of infliximab response despite therapeutic trough levels may benefit from a switch to a different class of therapy. These tests were performed using the JIM method. Infliximab levels obtained with different assay methods cannot be used interchangeably. Interfering substances found in sera of patients receiving infliximab therapy have different influence on infliximab levels measured on various assay platforms. This information is provided for informational purposes only and is not intended as medical advice. A physician's test selection and interpretation, diagnosis, and patient management decisions should be based on his/her education, clinical expertise, and assessment of the patient. The treating healthcare professional should refer to the parking enforcement officer's approved labeling for prescribing, warnings, side effects and other important information. INFLIXIMAB COMMENT SEE NOTE [facility], Comment: This test was developed and its analytical performance characteristics have been determined by [facility]. It has not been cleared or approved by FDA. This assay has been validated pursuant to the CLIA regulations and is used for clinical purposes. For additional information, please refer to https://education.Common Curriculum/faq/ZMU819 (This link is being provided for informational/educational purposes only.) FASTING:NO FASTING: NO Test Performed at: [facility], [id number] [place] [address] ??[phone] Aaliyah Esquivel MD,PhD,FATOU 09/05/2023 12:3 4 PM PLANT SPECIALIST 09/05/2023 12:36 PM PLANT SPECIALIST Kendra Brody [facility] CHEMISTRY ORDER JULIAN [facility] [phone] [facility], [address] [place] [address] * QUANTIFERON TB GOLD (09/05/2023 12:34 PM PLANT SPECIALIST) QUANTIFERON TB GOLD PLUS NEGATIVE NEGATIVE [facility] Comment: Negative test result. M. tuberculosis complex infection unlikely. NIL 0.02 IU/mL [facility] MITOGEN-NIL >10.00 IU/mL [facility] TB1 AG - NIL 0.00 IU/mL [facility] TB2 AG - NIL 0.00 IU/mL [facility] Comment: The Nil tube value reflects the background interferon gamma immune response of the patient's blood sample. This value has been subtracted from the patient's displayed TB and Mitogen results. Lower than expected results with the Mitogen tube prevent false-negative Quantiferon readings by detecting a patient with a potential immune suppressive condition and/or suboptimal pre-analytical specimen handling. The TB1 Antigen tube is coated with the M. tuberculosis-specific antigens designed to elicit responses from TB antigen primed CD4+ helper T-lymphocytes. The TB2 Antigen tube is coated with the M. tuberculosis-specific antigens designed to elicit responses from TB antigen primed CD4+ helper and CD8+ cytotoxic T-lymphocytes. For additional information, please refer to https://education.Common Curriculum/faq/KRE823 (This link is being provided for informational/ educational purposes only.) FASTING:NO FASTING: NO Test Performed at: [facility] [id number] [place] [address] ??[phone] Marce Pittman MD 09/05/2023 12:3 4 PM PLANT SPECIALIST 09/05/2023 12:36 PM PLANT SPECIALIST Kendra Brody ANP CHEMISTRY ORDER JULIAN [facility] [phone] [facility] [address] [place] [address] * (ABNORMAL) C-REACTIVE PROTEIN (09/05/2023 12:34 PM PLANT SPECIALIST) CRP 10.8(H) <8.0 mg/L [facility] Comment: FASTING:NO FASTING: NO Test Performed at: [facility] [address] [place] ??[address] Marce Pittman MD 09/05/2023 12:3 4 PM PLANT SPECIALIST 09/05/2023 12:36 PM PLANT SPECIALIST Kendra Brody ANP CHEMISTRY ORDER JULIAN Performing Organization Address City/[facility]/ZIP Co de Phone Number [facility] [phone] [facility] [address] [place] [address] * (ABNORMAL) VITAMIN D 25 HYDROXY (09/05/2023 12:34 PM PLANT SPECIALIST) VITAMIN D, 25 OH, TOTAL 13(L) 30 - 100 ng/mL [facility] Comment: Vitamin D Status ? 25-OH Vitamin D: Deficiency: ?<20 ng/mL Insufficiency: ? 20 - 29 ng/mL Optimal: ? > or = 30 ng/mL For 25-OH Vitamin D testing on patients on D2-supplementation and patients for whom quantitation of D2 and D3 fractions is required, the [facility](TM) 25-OH VIT D, (D2,D3), LC/MS/MS is recommended: order code 15776 (patients >2yrs). See Note 1 Note 1 For additional information, please refer to http://education.Resale Therapy.40billion.com/faq/AJU042 (This link is being provided for informational/ educational purposes only.) FASTING:NO FASTING: NO Test Performed at: [facility] [address] [place] ??[phone] Marce Pittman MD 09/05/2023 12:3 4 PM PLANT SPECIALIST 09/05/2023 12:36 PM PLANT SPECIALIST Kendra Brody ANP CHEMISTRY ORDER JULIAN Performing Organization Address City/[facility]/ZIP Co de Phone Number [facility] [phone] [facility] [address] * VITAMIN B12 LEVEL (09/05/2023 12:34 PM PLANT SPECIALIST) VITAMIN B12 336 200 - 1100 pg/mL [facility] Comment: Please Note: Although the reference range for vitamin B12 is 200-1100 pg/mL, it has been reported that between 5 and 10% of patients with values between 200 and 400 pg/mL may experience neuropsychiatric and hematologic abnormalities due to occult B12 deficiency; less than 1% of patients with values above 400 pg/mL will have symptoms. Test Performed at: [facility] [address] ??[phone] Marce Pittman MD 09/05/2023 12:3 4 PM PLANT SPECIALIST 09/05/2023 12:36 PM PLANT SPECIALIST Kendra Brody ANP CHEMISTRY ORDER JULIAN Performing Organization Address City/[facility]/ZIP Co de Phone Number [facility] [phone] [address] * (ABNORMAL) FERRITIN (09/05/2023 12:34 PM PLANT SPECIALIST) Pathologist [facility] FERRITIN 6(L) 16 - 154 ng/mL [facility] Comment: Test Performed at: [facility] ??[phone] Marce Pittman MD 09/05/2023 12:3 4 PM PLANT SPECIALIST 09/05/2023 12:36 PM PLANT SPECIALIST Kendra Brody ANP CHEMISTRY ORDER JULIAN [facility] [phone] [address] * (ABNORMAL) IRON, TIBC, AND PERCENT SATURATION (09/05/2023 12:34 PM PLANT SPECIALIST) Pathologist [facility] IRON 18(L) 40 - 190 mcg/dL [facility] TIBC 422 250 - 450 mcg/dL (calc) [facility] IRON % SATURATION 4(L) 16 - 45 % (calc) [facility] Comment: Test Performed at: [facility] [address] ??[phone] Marce Pittman MD 09/05/2023 12:3 4 PM PLANT SPECIALIST 09/05/2023 12:36 PM PLANT SPECIALIST Kendra Brody ANP CHEMISTRY ORDER JULIAN [facility] [phone] [address] * COMPREHENSIVE METABOLIC PANEL (09/05/2023 12:34 PM PLANT SPECIALIST) GLUCOSE 83 65 - 139 mg/dL [facility] Comment: ? Non-fasting reference interval BUN 14 7 - 25 mg/dL [facility] CREATININE 0.67 0.50 - 0.96 mg/dL [facility] GFR 125 > OR = 60 mL/min/1. 73m2 [facility] BUN/CREAT RATIO SEE NOTE: 6 - 22 (calc) [facility] Comment: ?? Not Reported: BUN and Creatinine are within ?? reference range. ? SODIUM 137 135 - 146 mmol/L [facility] POTASSIUM 4.0 3.5 - 5.3 mmol/L [facility] CHLORIDE 101 98 - 110 mmol/L [facility] CO2 29 20 - 32 mmol/L [facility] CALCIUM 8.9 8.6 - 10.2 mg/dL [facility] TOTAL PROTEIN 7.5 6.1 - 8.1 g/dL [facility] [place] ALBUMIN 4.3 3.6 - 5.1 g/dL [facility] GLOBULIN 3.2 1.9 - 3.7 g/dL (calc) [facility] ALBUMIN/GLOBULIN RATIO 1.3 1.0 - 2.5 (calc) [facility] BILIRUBIN TOTAL 0.3 0.2 - 1.2 mg/dL [facility] ALKALINE PHOSPHATASE 76 31 - 125 U/L [facility] AST 11 10 - 30 U/L [facility] ALT 15 6 - 29 U/L [facility] Comment: FASTING:NO FASTING: NO Test Performed at: [place] [address] [place] ??[phone] KerlineLaurahieu Shannan Pittman 09/05/2023 12:3 4 PM PLANT SPECIALIST 09/05/2023 12:36 PM PLANT SPECIALIST Kendra Brody ANP CHEMISTRY ORDER JULIAN [facility] [phone] [facility] [place] [address] [place] [address] * (ABNORMAL) CBC WITH DIFFERENTIAL (09/05/2023 12:34 PM PLANT SPECIALIST) WBC 7.7 3.8 - 10.8 Thousand/ uL [facility] [place] RBC 4.41 3.80 - 5.10 Million/u L [facility] HEMOGLOBIN 11.2(L) 11.7 - 15.5 g/dL [facility] HEMATOCRIT 36.4 35.0 - 45.0 % [facility] MCV 82.5 80.0 - 100.0 fL [facility] MCH 25.4(L) 27.0 - 33.0 pg [facility] MCHC 30.8(L) 32.0 - 36.0 g/dL [facility] RDW 14.2 11.0 - 15.0 % [facility] PLATELETS 382 140 - 400 Thousand/ uL [facility] MPV 11.0 7.5 - 12.5 fL [facility] NEUTROPHIL ABSOLUTE 3,396 1,500 - 7,800 cells/uL [facility] LYMPHOCYTE ABSOLUTE 3,750 850 - 3,900 cells/uL [facility] MONOCYTE ABSOLUTE 431 200 - 950 cells/uL [facility] EOSINOPHIL ABSOLUTE 92 15 - 500 cells/uL [facility] BASOPHILS ABSOLUTE 31 0 - 200 cells/uL [facility] NEUTROPHIL 44.1 % [facility] LYMPHOCYTES 48.7 % [facility] MONOCYTE 5.6 % [facility] EOSINOPHILS 1.2 % [facility] BASOPHILS 0.4 % [facility] Comment: FASTING:NO FASTING: NO Test Performed at: [place] [address] [place] ??[phone] KerlineHakanhieu Pittman 09/05/2023 12:3 4 PM PLANT SPECIALIST 09/05/2023 12:36 PM PLANT SPECIALIST Kendra Brody ANP HEMATOLOGY STAN GUILLEN [facility] [phone] [place] [address] [place] [address] documented in this encounter Visit Diagnoses Not on filedocumented in this encounter Care Teams Cold Rolling Machine Setter Relationship Specialty Start Date End Date Ciera Saucedo FNP [address] [place] [address] PCP - General Nurse Practitioner Family 05/24/21 documented as of this encounter
--- OUTSIDE RECORDS SUMMARY | 2024-08-13 20:07 | XMS_ITS | Encounter Summary ---
Author Organization [facility] Address [address] [place] [address] Care Team Providers Care Dealer Compliance Representative Name Role Phone EhsanCiera copeland BARBI Primary Care Provider [phone] Reason for Referral * Outpatient Services (Routine) - Closed Specialty Diagnoses / Procedures Referred By Contkarthikeyan t Referred To Contact Oncology Diagnoses Crohn's disease of small intestine with complication Procedures INFUSION THERAPY Shreya Platt MD [address] [facility] [address] [place] [address] [facility] [address] [address] [place] [address] Referral ID Status Reason Start Date Expiration Date Visits Re quested Visits Authorized [id number] Closed 12/25/2023 01/24/2025 1 1 Reason for Visit * Reason Onset Date Comments Needs Orders Written 12/25/2023 Encounter Details Date Type Department Care Team (Late st Contact Info) Description 12/25/2023 Telephone [facility] IBD and Gastroenterology Center [address] [address] Shreya Platt MD [address] [facility] 100 [place] [address] Needs Orders Written Social History Tobacco Use Types Packs/Day Years [...] as of this encounter Miscellaneous Notes * Telephone Encounter - Gay Madison RN - 12/25/2023 9:26 AM CDT Call from Ned at [facility] home infusion requesting new orders for infusions. documented in this encounter Plan of Treatment Upcoming Encounters Date Type Department Care Team (Late st Contact Info) Description 09/22/2024 8:00 AM FOREST RESOURCE SPECIALIST Office Visit [facility] IBD and Gastroenterology Center [place] [address] [place] [address] Shreya Platt MD [address] [place] [address] documented as of this encounter Visit Diagnoses Diagnosis Crohn's disease of small intestine with complication- Primary Regional enteritis of small intestine documented in this encounter Care Teams Dealer Compliance Representative Relationship Specialty Start Date End Date Ciera Saucedo FNP [address] [employer] [place] [address] PCP - General Nurse Practitioner Family 05/24/21 documented as of this encounter
--- OUTSIDE RECORDS SUMMARY | 2024-08-13 20:07 | XMS_ITS | Encounter Summary ---
Author Organization [facility] Address [address] [place] [address] Care Team Providers Care Aircraft Time Clerk Name Role Phone Ciera Saucedo Primary Care Provider [phone] Encounter Details Date Type Department Care Team (Late st Contact Info) Description 04/16/2024 External Device Data STL ABSTRACTION Provider, Abstract [...] st Contact Info) Description 09/22/2024 8:00 AM APARTMENT MAINTENANCE TECHNICIAN Office Visit [facility] IBD and Gastroenterology Center [place] [address] [facility] [address] [place] [address] Shreya Platt MD [address] [facility] [address] [place] [address] documented as of this encounter Visit Diagnoses Not on filedocumented in this encounter Care Teams Aircraft Time Clerk Relationship Specialty Start Date End Date Ciera Saucedo FNP [address] [place] [address] PCP - General Nurse Practitioner Family 05/24/21 documented as of this encounter
--- OUTSIDE RECORDS SUMMARY | 2024-08-13 20:07 | XMS_ITS | Encounter Summary ---
Author Organization [facility] Address [address] [place] [address] Care Team Providers Care Recovery Operator Helper Name Role Phone Ciera Saucedo BARBI Primary Care Provider [phone] Reason for Visit * Reason Onset Date Comments Medication Problem 09/26/2023 Encounter Details Date Type Department Care Team (Late st Contact Info) Description 09/26/2023 Telephone [facility] IBD and Gastroenterology Center [address] [facility] 100 [place] [address] Kendra Brody, DARNELL [address] [facility] 100 [place] [address] Medication Problem Social History Tobacco Use Types Packs/Day Years [...] Telephone Encounter - Gay Madison RN - 09/26/2023 3:04 PM CST [facility] infusion called to make office aware they cannot get auth for b12 injection and therefore they cannot administer it. Patient notified of same and that she can come to [place] office to get it, or she can contact her PCP and see if they can do it for her. Verbalizes understanding OUND SALES CONSULTANT documented in this encounter Plan of Treatment Upcoming Encounters Date Type Department Care Team (Late st Contact Info) Description 09/22/2024 8:00 AM OUTBOUND SALES CONSULTANT Office Visit [facility] IBD and Gastroenterology Center [place] [address] [place] [address] Shreya Platt MD [address] [place] [address] [place] [address] documented as of this encounter Visit Diagnoses Not on filedocumented in this encounter Care Teams Recovery Operator Helper Relationship Specialty Start Date End Date Ciera Saucedo FNP [address] [place] [address] PCP - General Nurse Practitioner Family 05/24/21 documented as of this encounter
--- OUTSIDE RECORDS SUMMARY | 2024-08-13 20:07 | XMS_ITS | Encounter Summary ---
Author Organization [facility] Address [address] [place] [address] Care Team Providers Care Hammersmith Helper Name Role Phone Ciera Saucedo BARBI Primary Care Provider Encounter Details Date Type Department Care Team (Late st Contact Info) Description 05/07/2023 Chart Note [facility] IBD and Gastroenterology Center [address] [facility] 100 [place] [address] Shreya Platt MD [address] [place] [address] Social History Tobacco Use Types Packs/Day Years Used Date Smoking Tobacco: Never Smokeless Tobacco: Never Alcohol Use Standard Drinks/Week Comments Yes 5 (1 standard drink = 0.6 oz pur e alcohol) Sex and Gender Information Value Date Recorded Sex Assigned at Female 04/18/2023 4:58 PM CDT Gender Identity Female 04/18/2023 4:58 PM CDT Sexual Orientation Not on file documented as of this encounter Progress Notes * Shreya Platt MD - 05/07/2023 4:46 PM CDT Called by [facility] triage for critical lab of ANC 0.3. She got a dose of infliximab today. Previous WBC counts have been normal. Called Pennie. She doesn't feel well. She is feeling dizzy, light headed, fatigued, etc. No fevers but hasn't taken her temp. She has diffuse abdominal pain which has been worsening since her Csection. We did CT Enterography 05/01 was normal. I discussed with Pennie that given her worse abdominal pain, neutropenia, and overall feeling unwell that she needs to come to the ER for evaluation. She will come to the ER first thing in the AM unless she has a fever between now and then which should prompt urgent ER. Shreya Platt MD documented in this encounter Plan of Treatment Upcoming Encounters Date Type Department Care Team (Late st Contact Info) Description 09/22/2024 8:00 AM SCIENCE MANAGER Office Visit [facility] IBD and Gastroenterology Center [place] [address] [place] [address] Shreya Platt MD [address] [place] [address] documented as of this encounter Visit Diagnoses Not on filedocumented in this encounter Care Teams Hammersmith Helper Relationship Specialty Start Date End Date Ciera Saucedo FNP [address] [place] [address] PCP - General Nurse Practitioner Family 05/24/21 documented as of this encounter
--- OUTSIDE RECORDS SUMMARY | 2024-08-13 20:07 | XMS_ITS | Encounter Summary ---
Author Organization [facility] Address [address] [place] [address] Care Team Providers Care Rubber Goods Inspector Name Role Phone Ciera Saucedo Primary Care Provider [phone] Encounter Details Date Type Department Care Team (Late st Contact Info) Description 08/08/2023 External Device Data STL ABSTRACTION Provider, Abstract [...] st Contact Info) Description 09/22/2024 8:00 AM HYPO DIPPER Office Visit [facility] IBD and Gastroenterology Center [place] [address] [facility] [address] [place] [address] Shreya Platt MD [address] [facility] 100 [place] [address] documented as of this encounter Visit Diagnoses Not on filedocumented in this encounter Care Teams Rubber Goods Inspector Relationship Specialty Start Date End Date Ciera Saucedo FNP [address] [place] [address] PCP - General Nurse Practitioner Family 05/24/21 documented as of this encounter
--- OUTSIDE RECORDS SUMMARY | 2024-08-13 20:07 | XMS_ITS | Encounter Summary ---
Author Organization [facility] Address [address] [place] [address] Care Team Providers Care Refinery Superintendent Name Role Phone Ciera Saucedo BARBI Primary Care Provider [phone] Encounter Details Date Type Department Care Team (Late st Contact Info) Description 06/04/2023 Orders Only [facility] IBD and Gastroenterology [place] [address] [place] [address] Shreya Platt MD [address] [place] [address] [place] [address] Crohn's disease of small intestine with complication (Primary Dx) Social History Tobacco Use Types Packs/Day Years [...] st Contact Info) Description 09/22/2024 8:00 AM JET DYEING MACHINE TENDER Office Visit [facility] IBD and Gastroenterology [facility] [address] [place] [address] Shreya Platt MD [address] [place] [address] documented as of this encounter Visit Diagnoses Diagnosis Crohn's disease of small intestine with complication- Primary Regional enteritis of small intestine documented in this encounter Care Teams Refinery Superintendent Relationship Specialty Start Date End Date Ciera Saucedo FNP [address] [place] [address] PCP - General Nurse Practitioner Family 05/24/21 documented as of this encounter
--- OUTSIDE RECORDS SUMMARY | 2024-08-13 20:07 | XMS_ITS | Encounter Summary ---
Author Organization [facility] Address [address] [place] [address] Care Team Providers Care Senior Accounting Specialist Name Role Phone Ciera Saucedo BARBI Primary Care Provider [phone] Reason for Visit * Reason Onset Date Comments Needs Appointment 06/22/2023 Encounter Details Date Type Department Care Team (Late st Contact Info) Description 06/22/2023 Telephone [facility] IBD and Gastroenterology Center [address] [address] Kendra Brody, DARNELL [address] [facility] 100 [place] [address] Needs Appointment Social History Tobacco Use Types Packs/Day [...] encounter Miscellaneous Notes * Telephone Encounter - Jennyfer Nunez - 06/22/2023 9:54 AM CDT Called pt . Lvm . See notes. * Telephone Encounter - Jennyfer Nunez - 06/22/2023 9:54 AM CDT Regarding: Test Results ----- Message from DARNELL Zavala sent at 06/22/2023 9:36 AM CDT ----- Can you please call to schedule her for a sooner appt with me 1 week after stool test so I have results? ----- Message sent from Kendra Brody ANP to Pennie Aguila at 06/22/2023 9:35 AM ----- Pennie, I can see you sooner to discuss, but I would like some stool tests done first to see if inflammation is causing the blood. Your imaging from last month all looked great! I will order the stool tests for [facility] and have my staff reach out about an appt. Thanks! DARNELL Manzano ----- Message ----- From:Pennie Aguila Sent:06/20/2023 7:16 PM CDT To:Patient Medical Advice Request Message List Subject:Test Results Okay thanks! I still had quite a bit of blood in my stool still. Not really sure what???s going on. ----- Message ----- From:Nurse Practitioner Sukhi Brody Sent:06/20/2023 3:43 PM CDT To:Pennie Aguila Subject:Test Results Yumi Pennie, I'm really sorry for your frustration. I was able to review the labs from 06/04/2023 today and all seems to be stable. Your CRP is still normal and I don't see any active signs of inflammation. SinceI am now able to see those results, I'm hope your [employer] was also able to review. I saw his is ordering iron studies to see if you are in need of iron infusions. We will continue to follow yourprogress. DARNELL Manzano ----- Message ----- From:Soheila Mendoza Sent:06/20/2023 3:30 PM CDT To:Pennie Aguila Subject:Test Results Arian Pennie, Labs are finally under care everywhere. I have sent those over to Kendra to look over. Soheila Mendoza. Lead Tire And Lube Technician [facility] IBD and Gastroenterology [phone] (Fax) ----- Message ----- From:Pennie Aguila Sent:06/20/2023 10:59 AM CDT To:Patient Medical Advice Request Message List Subject:Test Results I never understood why someone never lets me know what???s goes on..!! You all wait until days go by before you even say anything. Now I???m starting to get real aggravated. No one is taking me serious and this is about MY HEALTH. No one???s else???s. Whatever appointment I have coming up for next year is there anyway I can switch it to Dr. Kendra Brody?? ----- Message ----- From:Pennie Aguila Sent:06/20/2023 10:56 AM CDT To:Patient Medical Advice Request Message List Subject:Test Results How is that possible?? How do you not have it? My nurse took it 2 weeks ago.. this is a joke! I???mgonna have to have someone call me. I???m at the [employer] [facility] now and I don???t have any blood results done so now they have nothing to go off of. That???s why I wanted it done with my infusion. ----- Message ----- From:Soheila Mendoza Sent:06/19/2023 12:48 PM CDT To:Pennie Aguila Subject:Test Results Arian Casper, We have not got those yet. I called them and left a message to have someone call me back and I havenot heard back from them yet. Soheila Garcia Lead Tire And Lube Technician [facility] IBD and Gastroenterology [phone] (Fax) ----- Message ----- From:Pennie Aguila Sent:06/19/2023 12:42 PM CDT To:Patient Medical Advice Request Message List Subject:Test Results So I guess nobody has my blood results? ----- Message ----- From:Pennie Aguila Sent:06/13/2023 1:18 PM CDT To:Patient Medical Advice Request Message List Subject:Test Results At the [facility] Infusion center in [place], [place] ----- Message ----- From:Soheila Mendoza Sent:06/13/2023 11:52 AM CDT To:Pennie Aguila Subject:Test Results Arian Casper, Where did you get your infusion done at? Soheila Garcia Lead Tire And Lube Technician [facility] IBD and Gastroenterology [phone] (Fax) ----- Message ----- From:Pennie Aguila Sent:06/13/2023 10:22 AM CDT To:Dr. Taras Platt Subject:Test Results Hi, I had my infusion done last Sunday and they did some bloodwork. I was trying to see the results of my bloodwork but I???m not seeing it anywhere? documented in this encounter Plan of Treatment Upcoming Encounters Date Type Department Care Team (Late st Contact Info) Description 09/22/2024 8:00 AM CHRONIC CARE NURSE Office Visit [facility] IBD and Gastroenterology Center [place] [address] [place] [address] Shreya Platt MD [address] [place] [address] documented as of this encounter Visit Diagnoses Not on filedocumented in this encounter Care Teams Senior Accounting Specialist Relationship Specialty Start Date End Date Ciera Saucedo FNP [address] [place] [address] PCP - General Nurse Practitioner Family 05/24/21 documented as of this encounter
--- OUTSIDE RECORDS SUMMARY | 2024-08-13 20:07 | XMS_ITS | Encounter Summary ---
Author Organization [facility] Address [address] [place] [address] Care Team Providers Care Institute Scientist Name Role Phone Ciera Saucedo Primary Care Provider [phone] Encounter Details Date Type Department Care Team (Late st Contact Info) Description 10/16/2023 External Device Data STL ABSTRACTION Provider, Abstract [...] st Contact Info) Description 09/22/2024 8:[address] PROJECT MANAGER Office Visit [facility] IBD and Gastroenterology Center [place] [address] [facility] [address] [place] [address] Shreya Platt MD [address] [facility] [address] [place] [address] documented as of this encounter Visit Diagnoses Not on filedocumented in this encounter Care Teams Institute Scientist Relationship Specialty Start Date End Date Ciera Saucedo FNP [address] [place] [address] PCP - General Nurse Practitioner Family 05/24/21 documented as of this encounter
--- OUTSIDE RECORDS SUMMARY | 2024-08-13 20:07 | XMS_ITS | Encounter Summary ---
Author Organization [facility] Address [address] [place] [address] Care Team Providers Care Electrolytic De Scaler Name Role Phone Ciera Saucedo BARBI Primary Care Provider [phone] Reason for Visit * Reason Comments Follow Up Crohn's Disease Encounter Details Date Type Department Care Team (Late st Contact Info) Description 01/14/2024 8:00 AM CDT Office Visit [facility] [address] [address] Kendra Brody, DARNELL [address] [facility] [address] [place] [address] Crohn's disease of small intestine with complication (Primary Dx); Vitamin D deficiency; Fatigue, unspecified type; Iron deficiency anemia, unspecified iron deficiency anemia type Social History Tobacco Use Types Packs/Day Years Used Date Smoking Tobacco: Never Smokeless Tobacco: Never Tobacco Cessation:Counseling Given: Not Answered Alcohol Use Standard Drinks/Week Comments Never 5 (1 standard drink = 0.6 oz pur e alcohol) Sex and Gender Information Value Date Recorded Sex Assigned at Female 04/18/2023 4:58 PM CDT Gender Identity Female 04/18/2023 4:58 PM CDT Sexual Orientation Not on file documented as of this encounter Last Filed Vital Signs Vital Sign Reading Time Taken Comments Blood Pressure 118/62 01/14/2024 8:50 AM CDT Pulse 66 01/14/2024 8:50 AM CDT Temperature 36.7 ??C (98 ??F) 01/14/2024 8:50 AM CDT Respiratory Rate 17 01/14/2024 8:50 AM CDT Oxygen Saturation 98% 01/14/2024 8:50 AM CDT Inhaled Oxygen Concentration - - Weight 95.1 kg (209 lb 9.6 oz) 01/14/2024 8:50 A M CDT Height 164.6 cm (5' 4.8 ) 01/14/2024 8:50 AM CDT Body Mass Index 35.09 01/14/2024 8:50 AM CDT documented in this encounter Progress Notes * Kendra Brody ANP - 01/14/2024 8:00 AM CDT [facility] DARNELL Manzano Chief Complaint Patient presents with Follow Up Crohn's Disease Pennie Aguila is a 23 y.o. female with hx of migraines and crohn's ileitis. She presents today for follow up. Since last OV, she had labs drawn showing Vit D Deficiency, elevated CRP and BERENICE. Iron infusions were ordered given her already severe constipation. She refused initially but then did complete. She started weekly Vit D. She also had IFX level drawn, which was 50, which is suspicious for trough level. Today, she continues to have 2-3 BMs daily and is 9 weeks !! Her only complaint now is some RLQ pain that didn't really start back until she became . She was not able to complete imaging d/t new . She no longer has any rectal bleeding. She stopped drinking soda and now really only drinks tea or water. Wt Readings from Last 3 Encounters: 01/14/24 95.1 kg (209 lb 9.6 oz) 09/03/23 103 kg (227 lb) 06/20/23 105.2 kg (232 lb) Her next infusion is scheduled January 28. Her first son, Hi, is 11 months old and healthy! I have personally reviewed patient's last EGD/Colonoscopy and looked at her CT scan. GI Hx: Ileitis . Colon was normal with normal colon biopsy. EGD showed mild gastritis no hpylori. [id number] daily. 10/2021 - started infliximab 12/2021 - ifx level 23, no ab. CRP 49 01/2022 - CTE normal. 04/2023 - CTE normal Sister has crohn's and I see her as well. She takes entyvio. (failed remicade and stelara) I have reviewed outside records today as part of this visit from [facility] Past Medical History: I updated the electronic medical records of any updates in patients medical, social, and family hx. Past Medical History: Diagnosis Date Crohn's disease GERD (gastroesophageal reflux disease) 03/31/2021 Inflammatory bowel disease 03/31/2021 Past Surgical History: Procedure Laterality Date HX COLONOSCOPY 03/31/2021 HX UPPER ENDOSCOPY 03/31/2021 Family History Problem Relation Name Age of Onset Crohn's Disease Sister Nae Aguila Inflammatory Bowel Disease Sister Nae Aguila Cancer Maternal Uncle Kvaon Rajan Pancreatic/ Bile duct Diabetes Paternal Uncle Pedro Aguila Social History Socioeconomic History Marital status: Single Spouse name: Not on file Number of children: Not on file Years of education: Not on file Highest education level: Not on file Occupational History Not on file Tobacco Use Smoking status: Never Smokeless tobacco: Never Vaping Use Vaping status: Never Used Substance and Sexual Activity Alcohol use: Never Alcohol/week: 5.0 standard drinks of alcohol Types: 1 Glasses of wine, 3 Shots of liquor, 1 Standard drinks or equivalent per week Drug use: Yes Types: Marijuana Sexual activity: Yes Partners: Male control/protection: Condom Other Topics Concern Not on file Social History Narrative Not on file Social Determinants of Health Financial Resource Strain: Not on file Food Insecurity: Not on file Transportation Needs: Not on file Social Connections: Feeling Socially Integrated (10/28/2023) Received from [facility] OASIS [id number]: Social Isolation Frequency of experiencing loneliness or isolation: Never Intimate Partner Violence: Not on file Housing Stability: Not on file No Known Allergies Review of Systems: Eyes: as per HPI Respiratory: negative for cough, sputum, hemoptysis, dyspnea on exertion or chronic bronchitis Cardiovascular: negative for lower extremity edema, negative for chest pain, chest pressure/discomfort, dyspnea, palpitations, orthopnea, Gastrointestinal: as per HPI Genitourinary:negative for dysuria, nocturia, urinary incontinence, hematuria Hematologic/lymphatic: negative for easy bruising, bleeding, lymphadenopathy and petechiae Musculoskeletal: as per HPI Neurological: negative for headaches, dizziness, vertigo and seizures Exam: BP 118/62 Pulse 66 Temp 98 ??F (36.7 ??C) Resp 17 Ht 5' 4.8 (1.646 m) Wt 95.1 kg (209 lb9.6 oz) SpO2 98% BMI 35.09 kg/m?? General appearance: normal, alert, no distress, appears stated age Eyes: conjunctivae non-injected Neck: supple, symmetrical, no adenopathy Lungs: no respiratory distress, breathing comfortably. Abdomen: soft, no masses palpable, non-distended Extremities: no ulcers, no edema Joints: no synovitis Skin: No rashes or lesions Neuro: Converses and ambulates appropriately Relevant Laboratories: No results for input(s): WBC , HGB , PLT , INR in the last 72 hours. No results for input(s): MCV in the last 72 hours. No results for input(s): NA , K , CL , CO2 , BUN , CREATININE in the last 72 hours. No results for input(s): AST , ALT , ALKPHOS in the last 72 hours. Invalid input(s): TBILI , ALB No results for input(s): CRP in the last 72 hours. Lab Results Component Value Date WBC 7.7 09/05/2023 HGB 11.2 (L) 09/05/2023 HGB 10.8 (L) 05/07/2023 HCT 36.4 09/05/2023 HCT 34.1 (L) 05/07/2023 PLT 382 09/05/2023 MCV 82.5 09/05/2023 MCV 80.6 (L) 05/07/2023 Lab Results Component Value Date NA 137 09/05/2023 K 4.0 09/05/2023 CL 101 09/05/2023 CO2 29 09/05/2023 CA 8.9 09/05/2023 BUN 14 09/05/2023 CREAT 0.67 09/05/2023 GLUCOSE 83 09/05/2023 TOTALPROTEIN 7.5 09/05/2023 TOTALPROTEIN 7.4 05/07/2023 ALBUMIN 4.3 09/05/2023 ALBUMIN 4.2 05/07/2023 BILITOTAL 0.3 09/05/2023 ALKPHOS 76 09/05/2023 ALKPHOS 61 05/07/2023 AST 11 09/05/2023 ALT 15 09/05/2023 ANIONGAP 9 05/07/2023 BCRATIO SEE NOTE: 09/05/2023 Last Endoscopies: Last Imaging: CTE 04/2023 1. No bowel wall thickening, hyperenhancement or acute inflammation. 2. No bowel dilation to suggest stricture or obstruction. CT Enterography 01/2022 Unremarkable examination. No evidence of active bowel inflammation. MRE 05/2021 1. Active inflammation involving an approximately 12 cm segment of terminal ileum without evidence of bowel obstruction, intra-abdominal abscess formation, or enteric fistula. CT 12/24/20 - CT with contrast. Mild diffuse mesenteric lymphadenopathy, most likely reactive. Assessment: Pennie Aguila is a 23 y.o. with ileal crohn's here for follow up. Ileal crohn's - on infliximab since 10/2021. She is doing ok today. Normal CTE 04/2023. Having decreased bleeding in BMs. Is due for updated labs and colonoscopy this year. She completed iron infusionsand states she is feeling well overall! Will recheck infliximab trough level prior to infusion as last trough level was 50, making it suspicious for not being trough. Will continue every 4 week infusions currently. Will update stool testing soon and plan for colonoscopy Spring [address] Platt. Constipation -I did previously recommend her to start taking daily MiraLAX. She did not do this andfear that it would make her have explosive diarrhea. Today, we discussed that many of her symptoms are likely related to constipation including bloating, early acidity, bilateral lower abdominal cramping, and lack of bowel movements on some days. Doing well and continues magnesium oxide 400 mg at night as needed. Obesity - BMI 35, she has continued making healthy choices Fatgiue - likely r/t iron deficiency anemia. Will update iron studies soon since she completed ironinfusions High risk medication use requiring close monitoring,infliximab- Quant gold neg, 08/2023 Health Maint in IBD patient - will discuss at next visit given she is newly Covid Vaccine with Booster - Complete November 2020 without booster Need Hepatitis B vaccination series Pneumonia vaccines due Flu Shot - due later this Fall Shingrix vaccine - will discuss at next visit Annual skin checks discussed Continue seeing OBGYN and has stopped Recommendations: Continue infliximab 5mg/kg q 4 weeks. Will get trough level prior next infusion. Will postpone colonoscopy due after delivery which is 08/15/2024. Continue Magnesium as needed. Stool test to be completed soon. Check to see if you're up to date with Prevnar 20. Return in 4 months with Kendra and in [address] Platt. On the day of the visit, I spent 34 minutes providing care to this patient including chart review, review of outside records, obtaining history from patient and their family, performing a medically appropriate examination, counseling and educating the patient/family/caregiver, ordering medications, tests, or procedures, and documenting clinical information in the medical record. .DARNELL Manzano Division of Gastroenterology [facility] Inflammatory Bowel Disease [phone] CC: Ciera Saucedo FNP Orders Placed This Encounter CBC WITH DIFFERENTIAL COMPREHENSIVE METABOLIC PANEL C-REACTIVE PROTEIN IRON, TIBC, AND PERCENT SATURATION FERRITIN CALPROTECTIN, FECAL VITAMIN D 25 HYDROXY INFLIXIMAB LEVEL PANEL Current Outpatient Medications: ergocalciferol (VITAMIN D2) 50,000 unit capsule, TAKE 1 CAPSULE (50,000 UNITS) BY MOUTH EVERY 7 DAYS FOR 60 DAYS, THEN 1 CAPSULE (50,000 UNITS) EVERY 30 DAYS., Disp: 10 Capsule, Rfl: 1 INFLIXIMAB IV, Inject 500 mg by intravenous injection every 28 days., Disp: , Rfl: documented in this encounter Miscellaneous Notes * Patient Instructions - Kendra Brody ANP - 01/14/2024 8:30 AM CDT Thank you for entrusting your healthcare to the physicians at [facility] Inflammatory Bowel Disease and Gastroenterology Following your visit, you may receive a survey via email or [employer]. Kendra encourages you to respond to this confidential survey about your care. If you received excellent care, Kendra would appreciate your evaluation. Your feedback helps us to provide quality service at every visit. Thank you for your help in making our practice meet the highest expectations! [facility] Inflammatory Bowel Disease and Gastroenterology Center If you have IBD, this is the preferred office to contact. [address] [place] [address] Other important numbers to add to our contact info: After hours physician exchange: [phone] Perales: To schedule CT or MRI: Call [phone] To schedule EGD/Colon/Flex [phone] Lopez/Lc: To schedule CT or MRI: Call [phone] To schedule an EGD/Colon/Flex Sig: Call [phone] IMPORTANT: The following information and instructions are from your visit today: Continue infliximab 5mg/kg q 4 weeks. Will get trough level prior next infusion. Will postpone colonoscopy due after delivery which is 08/15/2024. Continue Magnesium as needed. Stool test to be completed soon. Check to see if you're up to date with Prevnar 20. Return in 4 months with Kendra and in [address] Platt. GATO Loco documented in this encounter Plan of Treatment Upcoming Encounters Date Type Department Care Team (Late st Contact Info) Description 09/22/2024 8:00 AM LABORER TIN CAN Office Visit [facility] [place] [address] [place] [address] Shreya Platt MD [address] [place] [address] documented as of this encounter Procedures Procedure Name Priority Date/Time Associated Diagnosis Comments INFLIXIMAB LEVEL PANEL Routine 01/15/2024 10:13 AM CDT Crohn's disease of small intestine with complication CALPROTECTIN, FECAL Routine 01/15/2024 1 0:13 AM CDT IRON, TIBC, AND PERCENT SATURATION Routine 01/15/2024 10:13 AM CDT Iron deficiency anemia, unspecified iron deficiency anemia type CBC WITH DIFFERENTIAL Routine 01/15/2024 10:13 AM CDT Crohn's disease of small intestine with complication VITAMIN D 25 HYDROXY Routine 01/15/2024 10:13 AM CDT Vitamin D deficiency C-REACTIVE PROTEIN Routine 01/15/2024 10 :13 AM CDT Crohn's disease of small intestine with complication FERRITIN Routine 01/15/2024 10:13 AM CDT Iron deficiency anemia, unspecified iron deficiency anemia type COMPREHENSIVE METABOLIC PANEL Routine 01/15/2024 10:13 AM CDT Crohn's disease of small intestine with complication documented in this encounter Results * CALPROTECTIN, FECAL (01/15/2024 10:13 AM CDT) CALPROTECTIN, FECAL 12 mcg/g [facility], Comment: ?Reference Range: ?<50 ? Normal ?50-120 ??Borderline ?>120 ?Elevated Calprotectin in Crohn's disease and ulcerative colitis can be five to several thousand times above the reference population (50 mcg/g or less). Levels are usually 50 mcg/g or less in healthy patients and with irritable bowel syndrome. Repeat testing in 4-6 weeks is suggested for borderline values. Test Performed at: [facility], [id number] [place], [place] [address] [place], [place] ??[address] Aaliyah Esquivel MD,PhD,FATOU 01/15/2024 10:1 3 AM CDT 01/15/2024 10:15 AM CDT Kendra PATRICK BODY FLUIDS AND STOOLS [facility] [phone] [facility], [address] [place] [address] * INFLIXIMAB LEVEL PANEL (01/15/2024 10:13 AM CDT) INFLIXIMAB LEVEL, IBD >50.0 mcg/mL [facility] [place], INFLIXIMAB AB, IBD <10 <10 AU Q [facility], INFLIXIMAB INTERPRETATION SEE NOTE [facility], Comment: The infliximab and infliximab anti-drug antibody [...] clinical equivalence studies, the FDA and the [place] [employer] advocate applying infliximab clinical guidance to the use of its biosimilars. The [place] [employer] recommends optimal infliximab trough concentration [...] treating healthcare professional should refer to the international sales representative's approved labeling for prescribing, warnings, side effects and other important information. INFLIXIMAB COMMENT SEE NOTE Q [employer]/ [facility], Comment: This test was developed and its analytical performance characteristics have been determined by [facility]. It has not been cleared or approved by FDA. This assay has been validated pursuant to the CLIA regulations and is used for clinical purposes. For additional information, please refer to https://education.Surveypal/faq/ZLC034 (This link is being provided for informational/educational purposes only.) Test Performed at: [facility], [address] [place], [place] ??[address] Aaliyah Esquivel MD,PhD,FATOU Blood 01/15/2024 10:1 3 AM CDT 01/15/2024 10:15 AM CDT Kendra Brody ANP CHEMISTRY ORDER JULIAN [facility] [phone] [facility], [address] [place] [address] * VITAMIN D 25 HYDROXY (01/15/2024 10:13 AM CDT) VITAMIN D, 25 OH, TOTAL 32 30 - 100 ng/mL [facility] Comment: Vitamin D Status ? 25-OH Vitamin D: Deficiency: ?<20 ng/mL Insufficiency: ? 20 - 29 ng/mL Optimal: ? > or = 30 ng/mL For 25-OH Vitamin D testing on patients on D2-supplementation and patients for whom quantitation of D2 and D3 fractions is required, the QuestAssureD(TM) 25-OH VIT D, (D2,D3), LC/MS/MS is recommended: order code 97991 (patients >2yrs). See Note 1 Note 1 For additional information, please refer to http://education.Kaleidoscope/faq/SOU614 (This link is being provided for informational/ educational purposes only.) Test Performed at: [facility] ??[address] Marce Pittman MD Blood 01/15/2024 10:1 3 AM CDT 01/15/2024 10:15 AM CDT Kendra Brody ANP CHEMISTRY ORDER JULIAN Performing Organization Address City/[facility]/ZIP Co de Phone Number [facility] [phone] [facility] [employer] [address] * FERRITIN (01/15/2024 10:13 AM CDT) FERRITIN 42 16 - 154 ng/mL [facility] [facility] Comment: Test Performed at: [facility] ??[address] Marce Pittman MD Blood 01/15/2024 10:1 3 AM CDT 01/15/2024 10:15 AM CDT Kendra Brody ANP CHEMISTRY ORDER JULIAN [facility] [phone] [facility] [employer] [address] * IRON, TIBC, AND PERCENT SATURATION (01/15/2024 10:13 AM CDT) IRON 90 40 - 190 mcg/dL [facility] [facility] TIBC 345 250 - 450 mcg/dL (calc) [facility] IRON % SATURATION 26 16 - 45 % (calc) [facility] Comment: Test Performed at: [facility] [address] [place] [address] ??[phone] Marce Pittman MD Blood 01/15/2024 10:1 3 AM CDT 01/15/2024 10:15 AM CDT Kendra Brody ANP CHEMISTRY ORDER JULIAN Performing Organization Address City/[facility] Co de Phone Number [facility] [phone] [facility] [employer] [address] * C-REACTIVE PROTEIN (01/15/2024 10:13 AM CDT) CRP 4.7 <8.0 mg/L [facility] [employer] [facility] Comment: Test Performed at: [facility] ??[address] Marce Pittman MD Blood 01/15/2024 10:1 3 AM CDT 01/15/2024 10:15 AM CDT Kendra Brody ANP CHEMISTRY ORDER JULIAN Performing Organization Address [facility] Co de Phone Number [facility] [phone] [facility] [employer] [address] * COMPREHENSIVE METABOLIC PANEL (01/15/2024 10:13 AM CDT) GLUCOSE 73 65 - 99 mg/dL [facility] [employer] Comment: ? Fasting reference interval BUN 8 7 - 25 mg/dL [facility] CREATININE 0.56 0.50 - 0.96 mg/dL [facility] GFR 130 > OR = 60 mL/min/1. 73m2 [facility] BUN/CREAT RATIO SEE NOTE: (calc) [facility] Comment: ?? Not Reported: BUN and Creatinine are within ?? reference range. ? SODIUM 136 135 - 146 mmol/L [facility] POTASSIUM 4.4 3.5 - 5.3 mmol/L [facility] CHLORIDE 103 98 - 110 mmol/L [facility] [employer] CO2 26 20 - 32 mmol/L [facility] CALCIUM 9.4 8.6 - 10.2 mg/dL [facility] TOTAL PROTEIN 7.2 6.1 - 8.1 g/dL [facility] ALBUMIN 4.3 3.6 - 5.1 g/dL [facility] GLOBULIN 2.9 1.9 - 3.7 g/dL (calc) [facility] ALBUMIN/GLOBULIN RATIO 1.5 1.0 - 2.5 (calc) [facility] BILIRUBIN TOTAL 0.6 0.2 - 1.2 mg/dL [facility] ALKALINE PHOSPHATASE 53 31 - 125 U/L [facility] AST 12 10 - 30 U/L [facility] ALT 20 6 - 29 U/L [facility] Comment: Test Performed at: [facility] [employer] [place] [address] [place], [place] ??[address] Marce Pittman Blood 01/15/2024 10:1 3 AM CDT 01/15/2024 10:15 AM CDT Kendra Brody ANP CHEMISTRY ORDER JULIAN [facility] [phone] [facility] [employer] [place] [address] [place] [address] * CBC WITH DIFFERENTIAL (01/15/2024 10:13 AM CDT) WBC 5.3 3.8 - 10.8 Thousand/u L [facility] RBC 4.25 3.80 - 5.10 Million/uL [facility] HEMOGLOBIN 12.4 11.7 - 15.5 g/dL [facility] HEMATOCRIT 38.0 35.0 - 45.0 % [facility] MCV 89.4 80.0 - 100.0 fL [facility] MCH 29.2 27.0 - 33.0 pg [facility] [place] MCHC 32.6 32.0 - 36.0 g/dL [facility] [place] RDW 12.9 11.0 - 15.0 % [facility] [place] PLATELETS 230 140 - 400 Thousand/u L [facility] MPV 11.1 7.5 - 12.5 fL [facility] [place] NEUTROPHIL ABSOLUTE 2,523 1,500 - 7,800 cells/uL [facility] [place] LYMPHOCYTE ABSOLUTE 2,454 850 - 3,900 cells/uL [facility] MONOCYTE ABSOLUTE 281 200 - 950 cells/uL [facility] EOSINOPHIL ABSOLUTE 32 15 - 500 cells/uL [facility] BASOPHILS ABSOLUTE 11 0 - 200 cells/uL [facility] [place] NEUTROPHIL 47.6 % [facility] LYMPHOCYTES 46.3 % [facility] MONOCYTE 5.3 % [facility] [place] EOSINOPHILS 0.6 % [facility] [place] BASOPHILS 0.2 % [facility] Comment: Test Performed at: [place] [address] [place], [place] ??[address] Marce Pittman Blood 01/15/2024 10:1 3 AM CDT 01/15/2024 10:15 AM CDT Kendra Brody ANP HEMATOLOGY SHERW[place] MINDY [facility] [phone] [facility] [employer] [place] [address] [place] [address] documented in this encounter Visit Diagnoses Diagnosis Crohn's disease of small intestine with complication- Primary Regional enteritis of small intestine Vitamin D deficiency Unspecified vitamin D deficiency Fatigue, unspecified type Iron deficiency anemia, unspecified iron deficiency anemia type documented in this encounter Care Teams Electrolytic De Scaler Relationship Specialty Start Date End Date Ciera Saucedo FNP [address] [place] [address] PCP - General Nurse Practitioner Family 05/24/21 documented as of this encounter
--- OUTSIDE RECORDS SUMMARY | 2024-08-13 20:07 | XMS_ITS | Encounter Summary ---
Author Organization [facility] Address [address] [place] [address] Care Team Providers Care Journeyman Pipe Welder Name Role Phone Ciera Saucedo BARBI Primary Care Provider Reason for Referral * Eval and Treat (Routine) - Open Specialty Diagnoses / Procedures Referred By Carolina t Referred To Contact Gastroenterology Diagnoses Crohn's disease of small intestine with complication Procedures ND OFFICE/OUTPATIENT ESTABLISHED MOD MDM 30 MIN ND OFFICE/OUTPATIENT NEW MODERATE MDM 45 MINUTES Kendra Brody ANP [address] [place] [address] [facility] [address] [place] [address] Referral ID Status Reason Start Date Expiration Date Visits Requested Visits Authorized [id number] Open Performing Department to Schedule 09/03/2023 09/02/2024 1 1 S RECORD CLERK Reason for Visit * Reason Comments Crohn's Disease Encounter Details Date Type Department Care Team (Late st Contact Info) Description 09/03/2023 10:00 AM SALES RECORD CLERK Office Visit [facility] IBD and Gastroenterology Center [address] [place] [address] Knedra Brody ANP [address] [place] [address] Crohn's disease of small intestine with complication (Primary Dx); Fatigue, unspecified type; Constipation, unspecified constipation type; Severe obesity (BMI 35.0-39.9) with comorbidity Social History Tobacco Use Types Packs/Day Years [...] Sign Reading Time Taken Comments Blood Pressure 110/67 09/03/2023 10:40 AM SALES RECORD CLERK Pulse 91 09/03/2023 10:40 AM SALES RECORD CLERK Temperature 36.5 ??C (97.7 ??F) 09/03/2023 10:[address] Respiratory Rate - - Oxygen Saturation 97% 09/03/2023 10:40 AM SALES RECORD CLERK Inhaled Oxygen Concentration - - Weight 103 kg (227 lb) 09/03/2023 10:40 AM SALES RECORD CLERK Height 162.6 cm (5' 4 ) 09/03/2023 10:40 AM SALES RECORD CLERK Body Mass Index 38.96 09/03/2023 10:40 AM SALES RECORD CLERK documented in this encounter Progress Notes * Kendra Brody ANP - 09/03/2023 10:00 AM CST [facility] Inflammatory Bowel Disease Clinic DARNELL Manzano Chief Complaint Patient presents with Crohn's Disease Pennie Aguila is a 22 y.o. female with hx of migraines and crohn's ileitis. She presents today for follow up. Today, she reports feeling poor. She is having a BM once daily most days. She is no longer seeing blood. She does feel times of bloating and nausea. She often feels full and reports only eating 1 meal daily. She continues to have bilateral lower abdominal pain, sometimes severe. She is no longer having GERD. She stopped drinking soda and now really only drinks tea or water. Her baby boy, Hi, is 7 months old and healthy! I have personally reviewed patient's last EGD/Colonoscopy and looked at her CT scan. GI Hx: Ileitis . Colon was normal with normal colon biopsy. EGD showed mild gastritis no hpylori. [id number] daily. 10/2021 - started infliximab 12/2021 - ifx level 23, no ab. CRP 49 01/2022 - CTE normal. - CTE normal Sister has crohn's and I see her as well. She takes entyvio. (failed remicade and stelara) I have reviewed outside records today as part of this visit from [facility] Past Medical History: I updated the electronic [...] Disease Sister Nae Aguila Cancer Maternal Uncle Kavon Rajan Pancreatic/ Bile duct Diabetes Paternal Uncle Pedro Aguila Social History Socioeconomic History Marital status: Single Spouse name: Not on file Number of children: Not on file Years of education: Not on file Highest education level: Not on file Occupational History Not on file Tobacco Use Smoking status: Never Smokeless tobacco: Never Vaping Use Vaping Use: Never used Substance and Sexual Activity Alcohol use: Never [...] Transportation Needs: Not on file Social Connections: Not on file Intimate Partner Violence: Not on file Housing [...] headaches, dizziness, vertigo and seizures Exam: BP 110/67 Pulse 91 Temp 97.7 ??F (36.5 ??C) Ht 5' 4 (1.626 m) Wt 103 kg (227 lb) SpO2 97% BMI 38.96 kg/m?? General appearance: normal, alert, no distress, appears stated age Eyes: conjunctivae non-injected Neck: supple, symmetrical, no adenopathy Lungs: no respiratory distress, breathing comfortably. Abdomen: soft, no masses palpable, non-distended; bilateral lower abdominal tenderness on palpation Extremities: no ulcers, no edema Joints: no [...] hours. Lab Results Component Value Date WBC 2.5 (L) 05/07/2023 HGB 10.8 (L) 05/07/2023 HCT 34.1 (L) 05/07/2023 PLT 195 05/07/2023 MCV 80.6 (L) 05/07/2023 Lab Results Component Value Date NA 138 05/07/2023 K 3.9 05/07/2023 CL 105 05/07/2023 CO2 24 05/07/2023 CA 8.7 05/07/2023 BUN 11 05/07/2023 CREAT 0.73 05/07/2023 GLUCOSE 94 05/07/2023 TOTALPROTEIN 7.4 05/07/2023 ALBUMIN 4.2 05/07/2023 BILITOTAL <0.2 (L) 05/07/2023 ALKPHOS 61 05/07/2023 AST 28 05/07/2023 ALT 32 05/07/2023 ANIONGAP 9 05/07/2023 BCRATIO NOT APPLICABLE 03/23/2023 Last Endoscopies: Last Imaging: CTE 04/2023 1. [...] likely reactive. Assessment: Pennie Aguila is a 22 y.o. with ileal crohn's here for follow up. Ileal crohn's - on infliximab since 10/2021. She is doing ok today. Normal CTE 04/2023. Having decreased bleeding in BMs. Is due for updated labs and colonoscopy this year. She continues to feel like she could feel better. Will check infliximab trough level prior to infusion this week and dose optimize if needed. If changing the dose of infliximab, we will postpone colonoscopy for 6 months. If trough level comes back normal, we will plan for colonoscopy this spring with Dr. Platt. Constipation -I did previously recommend her to start taking daily MiraLAX. She did not do this andfear that it would make her have explosive diarrhea. Today, we discussed that many of her symptoms are likely related to constipation including bloating, early acidity, bilateral lower abdominal cramping, and lack of bowel movements on some days. Will start MiraLAX daily for the next 2 weeks and then transition to magnesium oxide 400 mg at night as needed. Obesity - BMI 38, improved from prior but she is also now 7 months post Fatgiue -will update vitamin and iron studies given her previous history of anemia High risk medication use requiring close monitoring,infliximab- Quant gold and HbSag, core neg, 03/2022 and labs in the hospital were normal recently. Health Maint in IBD patient -will discuss at next visit given she was 15 minutes late for her appointment today Covid Vaccine with Booster - Complete November 2020 without booster Need Hepatitis B vaccination series Pneumonia vaccines due Flu Shot - due later this Fall Shingrix vaccine - will discuss at next visit Annual skin checks discussed Continue seeing OBGYN and has stopped Recommendations: Start 1 capful Miralax daily for 14 days. Then, start nightly Magnesium Oxide 400mg nightly. You can increase this as needed if you go 1 day without a bowel movement. Continue infliximab 5mg/kg q 8 weeks. Will get trough level prior to this week's infusion. If this is low, will increase the drug level and plan for colonoscopy in 6 months. If level is normal, will get sooner colonoscopy. Return in 4 months with Kendra. On the day of the visit, I spent 35 minutes providing care to this patient including chart review, review of outside records, obtaining history from patient and their family, performing a medically appropriate examination, counseling and educating the patient/family/caregiver, ordering medications, tests, or procedures, and documenting clinical information in the medical record. .DARNELL Manzano Division of Gastroenterology [facility] Inflammatory Bowel Disease [phone] CC: Ciera Saucedo FNP Orders Placed This Encounter CBC WITH DIFFERENTIAL COMPREHENSIVE METABOLIC PANEL C-REACTIVE PROTEIN VITAMIN D 25 HYDROXY VITAMIN B12 LEVEL QUANTIFERON TB GOLD IRON, TIBC, AND PERCENT SATURATION FERRITIN INFLIXIMAB LEVEL PANEL AMB REFERRAL TO GASTROENTEROLOGY INFLIXIMAB IV Current Outpatient Medications: INFLIXIMAB IV, Inject 500 mg by intravenous injection every 28 days., Disp: , Rfl: S RECORD CLERK documented in this encounter Miscellaneous Notes * Patient Instructions - Kendra Brody ANP - 09/03/2023 10:34 AM SALES RECORD CLERK Thank you for entrusting your healthcare to the physicians at [facility] Inflammatory Bowel Disease and Gastroenterology Following your visit, you may receive a survey via email or Luc[employer]Era. Kendra encourages you to respond to this confidential survey about your care. If you received excellent care, Kendra would appreciate your evaluation. Your feedback helps us to provide quality service at every visit. Thank you for your help in making our practice meet the highest expectations! [facility] Inflammatory Bowel Disease and Gastroenterology Center If you have IBD, this is the preferred office to contact. [address] [place] [address] Other important numbers to add to our contact info: After hours physician exchange: [phone] Perales: To schedule CT or MRI: Call [phone] To schedule EGD/Colon/Flex [phone] Landry/Lc: To schedule CT or MRI: Call [phone] To schedule an EGD/Colon/Flex Sig: Call [phone] IMPORTANT: The following information and instructions are from your visit today: Start 1 capful Miralax daily for 14 days. Then, start nightly Magnesium Oxide 400mg nightly. You can increase this as needed if you go 1 day without a bowel movement. Continue infliximab 5mg/kg q 8 weeks. Will get trough level prior to this week's infusion. If this is low, will increase the drug level and plan for colonoscopy in 6 months. If level is normal, will get sooner colonoscopy. Return in 4 months with Kendra. GATO Loco S RECORD CLERK documented in this encounter Plan of Treatment Upcoming Encounters Date Type Department Care Team (Late st Contact Info) Description 09/22/2024 8:00 AM SALES RECORD CLERK Office Visit [facility] IBD and Gastroenterology Center [place] [address] [place] [address] Shreya Platt MD [address] [place] [address] Pending Results Name Type Priority Associated Diagnoses Date /Time CBC WITH DIFFERENTIAL Lab Routine Crohn's disease of small intestine with complication 09/04/2023 2:15 PM SALES RECORD CLERK COMPREHENSIVE METABOLIC PANEL Lab Routine Crohn's disease of small intestine with complication 09/04/2023 2:15 PM SALES RECORD CLERK C-REACTIVE PROTEIN Lab Routine Crohn's disease of small intestine with complication 09/04/2023 2:15 PM SALES RECORD CLERK VITAMIN D 25 HYDROXY Lab Routine Crohn's disease of small intestine with complication Fatigue, unspecified type 09/04/2023 2:15 PM SALES RECORD CLERK VITAMIN B12 LEVEL Lab Routine Crohn's disease of small intestine with complication Fatigue, unspecified type 09/04/2023 2:15 PM SALES RECORD CLERK QUANTIFERON TB GOLD Lab Routine Crohn's disease of small intestine with complication 09/04/2023 2:15 PM SALES RECORD CLERK IRON, TIBC, AND PERCENT SATURATION Lab Routine Crohn's disease of small intestine with complication 09/04/2023 2:15 PM SALES RECORD CLERK FERRITIN Lab Routine Crohn's disease of small intestine with complication Fatigue, unspecified type 09/04/2023 2:15 PM SALES RECORD CLERK INFLIXIMAB LEVEL PANEL Lab Routine Crohn's disease of small intestine with complication Fatigue, unspecified type 09/04/2023 2:15 PM SALES RECORD CLERK Scheduled Orders Name Type Priority Associated Diagnoses Orde r Schedule CBC WITH DIFFERENTIAL Lab Routine Crohn's disease of small intestine with complication Expected: 09/03/2023, Expires: 09/03/2024 COMPREHENSIVE METABOLIC PANEL Lab Routine Crohn's disease of small intestine with complication Expected: 09/03/2023, Expires: 09/03/2024 C-REACTIVE PROTEIN Lab Routine Crohn's disease of small intestine with complication Expected: 09/03/2023, Expires: 09/03/2024 VITAMIN D 25 HYDROXY Lab Routine Crohn's disease of small intestine with complication Fatigue, unspecified type Expected: 09/03/2023, Expires: 09/03/2024 VITAMIN B12 LEVEL Lab Routine Crohn's disease of small intestine with complication Fatigue, unspecified type Expected: 09/03/2023, Expires: 09/03/2024 QUANTIFERON TB GOLD Lab Routine Crohn's disease of small intestine with complication Expected: 09/03/2023, Expires: 09/03/2024 IRON, TIBC, AND PERCENT SATURATION Lab Routine Crohn's disease of small intestine with complication Expected: 09/03/2023, Expires: 09/03/2024 FERRITIN Lab Routine Crohn's disease of small intestine with complication Fatigue, unspecified type Expected: 09/03/2023, Expires: 09/03/2024 INFLIXIMAB LEVEL PANEL Lab Routine Crohn's disease of small intestine with complication Fatigue, unspecified type Expected: 09/03/2023, Expires: 09/03/2024 Scheduled Referrals Name Type Priority Associated Diagnoses Order Schedule AMB REFERRAL TO GASTROENTEROLOGY Outpatient Referral Routine Crohn's disease of small intestine with complication Ordered: 09/03/2023 documented as of this encounter Visit Diagnoses Diagnosis Crohn's disease of small intestine with complication- Primary Regional enteritis of small intestine Fatigue, unspecified type Constipation, unspecified constipation type Severe obesity (BMI 35.0-39.9) with comorbidity documented in this encounter Care Teams Journeyman Pipe Welder Relationship Specialty Start Date End Date Ciera Saucedo FNP [address] [place] [address] PCP - General Nurse Practitioner Family 05/24/21 documented as of this encounter
--- OUTSIDE RECORDS SUMMARY | 2024-08-13 20:07 | XMS_ITS | Encounter Summary ---
Author Organization [facility] Address [address] [place] [address] Care Team Providers Care Credit Underwriter Name Role Phone Ciera Saucedo Primary Care Provider [phone] Encounter Details Date Type Department Care Team [...] st Contact Info) Description 09/22/2024 8:00 AM BUS TRANSPORTATION MANAGER Office Visit [facility] IBD and Gastroenterology Center [place] [address] [facility] [address] [place] [address] Shreya Platt MD [address] [facility] [address] [place] [address] documented as of this encounter Visit Diagnoses Not on filedocumented in this encounter Care Teams Credit Underwriter Relationship Specialty Start Date End Date Ciera Saucedo FNP [address] [place] [address] PCP - General Nurse Practitioner Family 05/24/21 documented as of this encounter
--- OUTSIDE RECORDS SUMMARY | 2024-08-13 20:07 | XMS_ITS | Encounter Summary ---
Author Organization [facility] Address [address] [place] [address] Care Team Providers Care Microfilm Processor Name Role Phone Ciera Saucedo Primary Care Provider [phone] Encounter Details Date Type Department Care Team (Late st Contact Info) Description 04/08/2024 External Device Data STL ABSTRACTION Provider, Abstract [...] st Contact Info) Description 09/22/2024 8:00 AM DIRECTOR NURSES' REGISTRY Office Visit [facility] IBD and Gastroenterology Center [place] [address] [facility] [address] [place] [address] Shreya Platt MD [address] [facility] [address] [place] [address] documented as of this encounter Visit Diagnoses Not on filedocumented in this encounter Care Teams Microfilm Processor Relationship Specialty Start Date End Date Ciera Saucedo FNP [address] [employer] [place] [address] PCP - General Nurse Practitioner Family 05/24/21 documented as of this encounter
--- OUTSIDE RECORDS SUMMARY | 2024-08-13 20:07 | XMS_ITS | Encounter Summary ---
Author Organization [facility] Address [address] [place] [address] Care Team Providers Care Alkylation Operator Name Role Phone Ciera Saucedo Primary Care Provider [phone] Encounter Details Date Type Department Care Team (Late st Contact Info) Description 04/23/2024 External Device Data STL ABSTRACTION Provider, Abstract [...] st Contact Info) Description 09/22/2024 8:00 AM GRANULATOR OPERATOR Office Visit [facility] IBD and Gastroenterology Center [place] [address] [facility] [address] [place] [address] Shreya Platt MD [address] [facility] [address] [place] [address] documented as of this encounter Visit Diagnoses Not on filedocumented in this encounter Care Teams Alkylation Operator Relationship Specialty Start Date End Date Ciera Saucedo FNP [address] [place] [address] PCP - General Nurse Practitioner Family 05/24/21 documented as of this encounter
--- OUTSIDE RECORDS SUMMARY | 2024-08-13 20:07 | XMS_ITS | Encounter Summary ---
Author Organization [facility] Address [address] [place] [address] Care Team Providers Care Provider Relations Consultant Name Role Phone Ciera Saucedo Primary Care Provider [phone] Encounter Details Date Type Department Care Team (Late st Contact Info) Description 04/15/2024 External Device Data STL ABSTRACTION Provider, Abstract [...] st Contact Info) Description 09/22/2024 8:00 AM DENTURE PROCESSOR Office Visit [facility] IBD and Gastroenterology Center [place] [address] [facility] [address] [place] [address] Shreya Platt MD [address] [facility] [address] [place] [address] documented as of this encounter Visit Diagnoses Not on filedocumented in this encounter Care Teams Provider Relations Consultant Relationship Specialty Start Date End Date Ciera Saucedo FNP [address] [place] [address] PCP - General Nurse Practitioner Family 05/24/21 documented as of this encounter
--- OUTSIDE RECORDS SUMMARY | 2024-08-13 20:07 | XMS_ITS | Encounter Summary ---
Author Organization [facility] Address [address] [place] [address] Care Team Providers Care Blade Grinder Name Role Phone Ciera Saucedo Primary Care Provider [phone] Encounter Details Date Type Department Care Team (Late st Contact Info) Description 02/05/2024 External Device Data STL ABSTRACTION Provider, Abstract [...] st Contact Info) Description 09/22/2024 8:00 AM FILL TECHNICIAN Office Visit [facility] IBD and Gastroenterology Center [place] [address] [facility] [address] [place] [address] Shreya Platt MD [address] [facility] [address] [place] [address] documented as of this encounter Visit Diagnoses Not on filedocumented in this encounter Care Teams Blade Grinder Relationship Specialty Start Date End Date Ciera Saucedo FNP [address] [place] [address] PCP - General Nurse Practitioner Family 05/24/21 documented as of this encounter
--- OUTSIDE RECORDS SUMMARY | 2024-08-13 20:07 | XMS_ITS | Encounter Summary ---
Author Organization [facility] Address [address] [place] [address] Care Team Providers Care Supervisor Shrimp Pond Name Role Phone Ciera Saucedo Primary Care Provider [phone] Encounter Details Date Type Department Care Team (Late st Contact Info) Description 03/11/2024 External Device Data STL ABSTRACTION Provider, Abstract [...] st Contact Info) Description 09/22/2024 8:00 AM NEON PUMPER Office Visit [facility] IBD and Gastroenterology Center [place] [address] [facility] [address] [place] [address] Shreya Platt MD [address] [facility] [address] [place] [address] documented as of this encounter Visit Diagnoses Not on filedocumented in this encounter Care Teams Supervisor Shrimp Pond Relationship Specialty Start Date End Date Ciera Saucedo FNP [address] [place] [address] PCP - General Nurse Practitioner Family 05/24/21 documented as of this encounter
--- OUTSIDE RECORDS SUMMARY | 2024-08-13 20:07 | XMS_ITS | Encounter Summary ---
Author Organization [facility] Address [address] [place] [address] Care Team Providers Care Laborer Wrecking And Salvaging Name Role Phone Ciera Saucedo Primary Care Provider [phone] Encounter Details Date Type Department Care Team (Late st Contact Info) Description 10/23/2023 External Device Data STL ABSTRACTION Provider, Abstract [...] st Contact Info) Description 09/22/2024 8:00 AM FURNACE DOOR TENDER Office Visit [facility] IBD and Gastroenterology Center [place] [address] [facility] [address] [place] [address] Shreya Platt MD [address] [facility] [address] [place] [address] documented as of this encounter Visit Diagnoses Not on filedocumented in this encounter Care Teams Laborer Wrecking And Salvaging Relationship Specialty Start Date End Date Ciera Saucedo FNP [address] [place] [address] PCP - General Nurse Practitioner Family 05/24/21 documented as of this encounter
--- OUTSIDE RECORDS SUMMARY | 2024-08-13 20:07 | XMS_ITS | Encounter Summary ---
Author Organization [facility] Address [address] [place] [address] Care Team Providers Care Wood Finisher Name Role Phone Ciera Saucedo Primary Care Provider [phone] Encounter Details Date Type Department Care Team (Late st Contact Info) Description 01/29/2024 External Device Data STL ABSTRACTION Provider, Abstract [...] st Contact Info) Description 09/22/2024 8:00 AM MATTRESS AND FOUNDATION SEWER Office Visit [facility] IBD and Gastroenterology Center [place] [address] [facility] [address] [place] [address] Shreya Platt MD [address] [facility] [address] [place] [address] documented as of this encounter Visit Diagnoses Not on filedocumented in this encounter Care Teams Wood Finisher Relationship Specialty Start Date End Date Ciera Saucedo FNP [address] [place] [address] PCP - General Nurse Practitioner Family 05/24/21 documented as of this encounter
--- OUTSIDE RECORDS SUMMARY | 2024-08-13 20:07 | XMS_ITS | Encounter Summary ---
Author Organization [facility] Address [address] [place] [address] Care Team Providers Care Avionics Safety Inspector Name Role Phone Ciera Saucedo BARBI Primary Care Provider [phone] Reason for Visit * Reason Onset Date Comments GI Problem 05/07/2023 Encounter Details Date Type Department Care Team (Late st Contact Info) Description 05/07/2023 Telephone [facility] [address] [place] [address] [address] Shreya Platt MD [address] [facility] [address] [place] [address] GI Problem Social History Tobacco Use Types Packs/Day [...] Telephone Encounter - Gay Madison RN - 05/07/2023 10:32 AM CDT Namrata with [facility] home infusion called with report patient has not been feeling wll. Shaking at times with a rash on BLE.VS stable at t 98.7, 112/60, HR 96, o2 96RA, Did have 1 bloody stool last week, Sharp pains that started on right side and now moved to left side, . Spoke with Dr Platt who states ok for todays Entyvio infusion and requested that Rn draw labs CBC, CMP, CRP and send results to Dr Platt, Called Namrata back with orders, verbalizes understanding. documented in this encounter Plan of Treatment Upcoming Encounters Date Type Department Care Team (Late st Contact Info) Description 09/22/2024 8:00 AM SCREEN REPAIRER CRUSHER Office Visit [facility] [place] [address] [place] [address] Shreya Platt MD [address] [place] [address] documented as of this encounter Visit Diagnoses Not on filedocumented in this encounter Care Teams Avionics Safety Inspector Relationship Specialty Start Date End Date Ciera Saucedo FNP [address] [place] [address] PCP - General Nurse Practitioner Family 05/24/21 documented as of this encounter
--- OUTSIDE RECORDS SUMMARY | 2024-08-13 20:07 | XMS_ITS | Clinical Summary ---
Author Organization [facility] Address [address] [place] [address] Phone Care Team Providers Care Apprentice Lineman Third Step Name Role Phone Ciera Saucedo BARBI Primary Care Provider [phone] Allergies No known active allergies Medications Medication Sig Dispensed Refills Start Date End Date Status INFLIXIMAB IV Inject 500 mg by intravenous injection every 28 days. 07/02/2023 Active ergocalciferol (VITAMIN D2) 50,000 unit capsuleIndication s:Vitamin D deficiency TAKE 1 CAPSULE (50,000 UNITS) BY MOUTH EVERY 7 DAYS FOR 60 DAYS, THEN 1 CAPSULE (50,000 UNITS) EVERY 30 DAYS. 10 Capsule 1 12/11/2023 11/04/2024 Active Active Problems Problem Noted Date Diagnosed Date Crohn's disease 05/25/2021 Overview (05/25/2021): Follows with Shreya Platt MD [facility]. Encounters Date Type Department Care Team Description 07/21/2024 Orders Only Initial Department [address] [place]ALAN: [place] [address] Provider, Historical from Last 3 Months Family History Medical History Relation Name Comments Cancer Maternal Uncle Kavon Foreshee Pancreatic/ Bile duct Diabetes Paternal Uncle Pedro Aguila Crohn's Disease Sister Nae Aguila Inflammatory Bowel Disease Sister Nae Reyes rand Relation Name Status Comments Maternal Uncle Kavon Foreshee Paternal Uncle Pedro Aguila Sister Nae Aguila Social History Tobacco Use Types Packs/Day Years Used Date Smoking Tobacco: Never Smokeless Tobacco: Never Tobacco Cessation:Counseling Given: Not Answered Alcohol Use Standard Drinks/Week Comments Never 5 (1 standard drink = 0.6 oz pur e alcohol) Sex and Gender Information Value Date Recorded Sex Assigned at Female 04/18/2023 4:58 PM CDT Gender Identity Female 04/18/2023 4:58 PM CDT Sexual Orientation Not on file Last Filed Vital Signs Vital Sign Reading Time Taken Comments Blood Pressure 105/58 05/05/2024 8:33 AM CDT Pulse 71 05/05/2024 8:33 AM CDT Temperature 36.6 ??C (97.9 ??F) 05/05/2024 8:33 AM CD T Respiratory Rate 18 05/05/2024 8:33 AM CDT Oxygen Saturation 98% 05/05/2024 8:33 AM CDT Inhaled Oxygen Concentration - - Weight 95.8 kg (211 lb 3.2 oz) 05/05/2024 8:33 A M CDT Height 164.6 cm (5' 4.8 ) 05/05/2024 8:33 AM CDT Body Mass Index 35.36 05/05/2024 8:33 AM CDT Plan of Treatment Upcoming Encounters Date Type Department Care Team (Late st Contact Info) Description 09/22/2024 8:00 AM PACKER DRIED BEEF Office Visit [facility] [place] [address] [facility] [address] [place] [address] Shreya Platt MD [address] [facility] [address] [place] [address] Health Maintenance Due Date Last Done Comments HPV VACCINES (1 - 3-dose series) 2013 DTAP/TDAP/TD VACCINES (1 - Tdap) 2017 HEPATITIS B VACCINES (1 of 3 - 19+ 3-dose series) 2017 CERVICAL CANCER SCREENING 2019 INFLUENZA VACCINE (#1) 2024 PNEUMOCOCCAL VACCINE 0-64 YEARS Aged Out No longer eligible based on patient's age to complete this topic Procedures Procedure Name Priority Date/Time Associated Diagnosis Comments CALPROTECTIN, FECAL Routine 07/21/2024 1 2:56 PM PACKER DRIED BEEF Crohn's disease of small intestine with complication INFLIXIMAB LEVEL PANEL Routine 07/21/2024 12:50 PM PACKER DRIED BEEF INFLIXIMAB LEVEL PANEL Routine 05/20/2024 11:03 AM CDT Crohn's disease of small intestine with complication from Last 3 Months Results * CALPROTECTIN, FECAL (07/21/2024 12:56 PM PACKER DRIED BEEF) CALPROTECTIN, FECAL 8 mcg/g [facility], Comment: ?Reference Range: ?<50 ? Normal ?50-120 ??Borderline ?>120 ?Elevated Calprotectin in Crohn's disease and ulcerative colitis can be five to several thousand times above the reference population (50 mcg/g or less). Levels are usually 50 mcg/g or less in healthy patients and with irritable bowel syndrome. Repeat testing in 4-6 weeks is suggested for borderline values. Test Performed at: [facility], [address] [facility], [place] ??[address] Aaliyah Esquivel MD,PhD,FATOU Stool STOOL SPECIMEN / Unknown 07/21/2024 12:56 PM PACKER DRIED BEEF 07/22/2024 5:12 AM PACKER DRIED BEEF Kendra PATRICK BODY FLUIDS AND STOOLS [facility] [phone] [facility], [address] [place] [address] * INFLIXIMAB LEVEL PANEL (07/21/2024 12:50 PM PACKER DRIED BEEF) Only the most recent of2 resultswithin the time period is included. INFLIXIMAB LEVEL, IBD >50.0 mcg/mL [facility], INFLIXIMAB AB, IBD <10 <10 AU [facility], INFLIXIMAB INTERPRETATION SEE NOTE [facility], Comment: The infliximab and infliximab anti-drug [...] clinical equivalence studies, the FDA and the [place] Gastro[employer] Association advocate applying infliximab clinical guidance to the use of its biosimilars. The [place] [employer] Association recommends optimal infliximab trough concentration [...] treating healthcare professional should refer to the sock lining stitcher's approved labeling for prescribing, warnings, side effects and other important information. INFLIXIMAB COMMENT SEE NOTE [employer]/ [facility], Comment: This test was developed and its analytical performance characteristics have been determined by [facility]. It has not been cleared or approved by FDA. This assay has been validated pursuant to the CLIA regulations and is used for clinical purposes. For additional information, please refer to https://education.GridGain Systems/faq/TLM028 (This link is being provided for informational/educational purposes only.) TOOK VITAMINS, TESTS SHOWS NOT TO FASTING:NO FASTING: NO Test Performed at: [facility], [address] [facility], [place] ??[address] Aaliyah Esquivel MD,PhD,FATOU 07/21/2024 12:5 0 PM PACKER DRIED BEEF 07/21/2024 12:54 PM PACKER DRIED BEEF Kendra Brody ANP CHEMISTRY ORDER [facility] [phone] [facility], [address] [place] [address] from Last 3 Months Care Teams Apprentice Lineman Third Step Relationship Specialty Start Date End Date Ciera Saucedo FNP [address] [place] [address] PCP - General Nurse Practitioner Family 05/24/21
--- OUTSIDE RECORDS SUMMARY | 2024-08-13 20:07 | XMS_ITS | Encounter Summary ---
Author Organization [facility] Address [address] [place] [address] Care Team Providers Care Care Analyst Name Role Phone Ciera Saucedo BARBI Primary Care Provider [phone] Reason for Visit * Reason Comments Follow Up Crohn's Disease Encounter Details Date Type Department Care Team (Late st Contact Info) Description 05/05/2024 8:00 AM CDT Office Visit [facility] [place] [address] [facility] [address] [place] [address] Kendra Brody, DARNELL [address] [place] [address] Crohn's disease of small intestine with complication (Primary Dx); Constipation, unspecified constipation type; Vitamin D deficiency; Iron deficiency anemia, unspecified iron deficiency anemia [...] Mass Index 35.36 05/05/2024 8:33 AM CDT documented in this encounter Progress Notes * Kendra Brody ANP - 05/05/2024 8:[address] [facility] DARNELL Manzano Chief Complaint Patient presents with Follow Up Pennie Aguila is a 23 y.o. female with hx of migraines and crohn's ileitis. She presents today for follow up. Since last OV, she had IFX trough level drawn, which was 50, which is suspicious for trough level. Today, she is 25 weeks with a baby girl!! RLQ pain has resolved. She is having 2 BMs daily without urgency. She has rare blood at times. Her weight has remained stable. Wt Readings from Last 3 Encounters: 05/05/24 95.8 kg (211 lb 3.2 oz) 01/14/24 95.1 kg (209 lb 9.6 oz) 09/03/23 103 kg (227 lb) Her first son, Hi, is 15 months old and healthy! Efrain is the planned name for baby girl. I have personally reviewed patient's last EGD/Colonoscopy and looked at her CT scan. GI Hx: Ileitis . Colon was normal with normal colon biopsy. EGD showed mild gastritis no hpylori. [id number] daily. 10/2021 - started infliximab 12/2021 - ifx level 23, no ab. CRP 49 01/2022 - CTE normal. 04/2023 - CTE normal Sister has crohn's and I see her as well. She takes entyvio. (failed remicade and stelara) I have reviewed outside records today as part of this visit from [facility] Past Medical History: I updated the [...] of wine, 3 Shots of liquor, 1 Unspecified drink type per week Drug use: Yes Types: Marijuana Sexual activity: Yes Partners: Male control/protection: Condom Other Topics Concern Not on file Social History Narrative Not on file Social Determinants of Health Financial Resource Strain: Not on file Food Insecurity: Not on file Transportation Needs: Not on file Social Connections: Feeling Socially Integrated (10/28/2023) Received from [facility] OASIS D0700: Social [...] headaches, dizziness, vertigo and seizures Exam: BP 105/58 Pulse 71 Temp 97.9 ??F (36.6 ??C) Resp 18 Ht 5' 4.8 (1.646 m) Wt 95.8 kg (211 lb 3.2 oz) SpO2 98% BMI 35.36 kg/m?? General appearance: normal, alert, no distress, appears stated age Eyes: conjunctivae non-injected Neck: supple, symmetrical, no adenopathy Lungs: no respiratory distress, breathing comfortably. Abdomen: non tender, non-distended Extremities: no ulcers, no edema Joints: [...] hours. Lab Results Component Value Date WBC 5.3 01/15/2024 HGB 12.4 01/15/2024 HGB 10.8 (L) 05/07/2023 HCT 38.0 01/15/2024 HCT 34.1 (L) 05/07/2023 PLT 230 01/15/2024 MCV 89.4 01/15/2024 MCV 80.6 (L) 05/07/2023 Lab Results Component Value Date NA 136 01/15/2024 K 4.4 01/15/2024 CL 103 01/15/2024 CO2 26 01/15/2024 CA 9.4 01/15/2024 BUN 8 01/15/2024 CREAT 0.56 01/15/2024 GLUCOSE 73 01/15/2024 TOTALPROTEIN 7.2 01/15/2024 TOTALPROTEIN 7.4 05/07/2023 ALBUMIN 4.3 01/15/2024 ALBUMIN 4.2 05/07/2023 BILITOTAL 0.6 01/15/2024 ALKPHOS 53 01/15/2024 ALKPHOS 61 05/07/2023 AST 12 01/15/2024 ALT 20 01/15/2024 ANIONGAP 9 05/07/2023 BCRATIO SEE NOTE: 01/15/2024 Last Endoscopies: Last Imaging: CTE 04/2023 1. [...] trough. Will continue every 4 week infusions currently and update inflix[facility] trough level at [facility] prior to next infusion. Will update stooltesting just prior to delivery and plan for colonoscopy Spring [address] Platt. Constipation - I did previously recommend her to start taking daily MiraLAX. She did not do this and fear that it would make her have explosive diarrhea. Doing well and continues magnesium oxide 400 mg at night as needed. Obesity - BMI 35, she has continued making healthy choices and her weight has remained stable during Fatgiue - likely r/t iron deficiency anemia. Completed iron infusions. Now doing well High risk medication use requiring close monitoring,infliximab- Quant gold neg, 08/2023 Health Maint in IBD patient - will discuss further after delivery Covid Vaccine with Booster - Complete November 2020 without booster Need Hepatitis B vaccination series Pneumonia vaccines due Flu Shot - due later this Fall Shingrix vaccine - will discuss at next visit Annual skin checks discussed Continue seeing OBGYN and has stopped Recommendations: Continue infliximab 5mg/kg q 4 weeks. 1 day prior to next infusion, get labs at [facility]. Ok to postpone currently scheduled infusion (08/13/2024) to 1 week later. Continue . Continue Magnesium as needed. Stool test to be completed late Jun/early Jul. Will postpone colonoscopy until Spring 2024. Return as scheduled with Dr. Platt. MDM high given management of chronic disease with monitoring of labs, imaging and high risk Rx. Kendra Brody, DARNELL Division of Gastroenterology [facility] [phone] CC: Ciera SaucedoCRISTIANAP No orders of the defined types were placed in this encounter. Current Outpatient Medications: ergocalciferol (VITAMIN D2) 50,000 unit capsule, TAKE 1 CAPSULE (50,000 UNITS) BY MOUTH EVERY 7 DAYS FOR 60 DAYS, THEN 1 CAPSULE (50,000 UNITS) EVERY 30 DAYS., Disp: 10 Capsule, Rfl: 1 INFLIXIMAB IV, Inject 500 mg by intravenous injection every 28 days., Disp: , Rfl: documented in this encounter Miscellaneous Notes * Result Encounter Note - Kendra Brody ANP - 07/30/2024 9:13 AM IMAGE ASSEMBLER Pennie Aguila Your stool results still look great! Thanks! DARNELL Manzano E ASSEMBLER * Result Encounter Note - Kendra Brody ANP - 05/28/2024 12:48 PM CDT Pennie Aguila Your lab results look great! Thanks! DARNELL Manzano * Patient Instructions - Kendra Brody ANP - 05/05/2024 8:45 AM CDT Thank you for entrusting your healthcare to the physicians at [facility] and Gastroenterology Following your visit, you may receive a survey via email or [employer]. Kendra encourages you to respond to this confidential survey about your care. If you received excellent care, Kendra would appreciate your evaluation. Your feedback helps us to provide quality service at every visit. Thank you for your help in making our practice meet the highest expectations! [facility]ology [facility] If you have IBD, this is the preferred office to contact. [address] [place] [address] Other important numbers to add to our contact info: After hours physician exchange: [phone] Perales: To schedule CT or MRI: Call [phone] To schedule EGD/Colon/Flex [phone] Lopez/Lc: To schedule CT or MRI: Call [phone] To schedule an EGD/Colon/Flex Sig: Call [phone] IMPORTANT: The following information and instructions are from your visit today: Continue infliximab 5mg/kg q 4 weeks. 1 day prior to next infusion, get labs at [facility]. Will postpone colonoscopy due after delivery which is 08/16/2024. Ok to postpone currently scheduled infusion (08/13/2024) to 1 week later. Continue . Continue Magnesium as needed. Stool test to be completed late Jun/early Jul. Return as scheduled with Dr. Platt. GATO Loco documented in this encounter Plan of Treatment Upcoming Encounters Date Type Department Care Team (Late Contact Info) Description 09/22/2024 8:00 AM IMAGE ASSEMBLER Office Visit [facility] [place] [id number] [place] [address] Shreya Platt MD [address] [place] [address] documented as of this encounter Procedures Procedure Name Priority Date/Time Associated Diagnosis Comments CALPROTECTIN, FECAL Routine 07/21/2024 1 2:56 PM IMAGE ASSEMBLER Crohn's disease of small intestine with complication INFLIXIMAB LEVEL PANEL Routine 05/20/2024 11:03 AM CDT Crohn's disease of small intestine with complication documented in this encounter Results * CALPROTECTIN, FECAL (07/21/2024 12:56 PM IMAGE ASSEMBLER) CALPROTECTIN, FECAL 8 mcg/g [facility], Comment: ?Reference Range: ?<50 ? Normal ?50-120 ??Borderline ?>120 ?Elevated Calprotectin in Crohn's disease and ulcerative colitis can be five to several thousand times above the reference population (50 mcg/g or less). Levels are usually 50 mcg/g or less in healthy patients and with irritable bowel syndrome. Repeat testing in 4-6 weeks is suggested for borderline values. Test Performed at: [facility], [address] [facility], [place] ??[address] Aaliyah Esquivel MD,PhD,FATOU Stool STOOL SPECIMEN / Unknown 07/21/2024 12:56 PM IMAGE ASSEMBLER 07/22/2024 5:12 AM IMAGE ASSEMBLER Kendra PATRICK BODY FLUIDS AND STOOLS [facility] [phone] [facility] [facility], [address] [place] [address] * INFLIXIMAB LEVEL PANEL (05/20/2024 11:03 AM CDT) INFLIXIMAB LEVEL, IBD 25.3 mcg/mL [facility] [employer] [facility], INFLIXIMAB AB, IBD <10 <10 AU [facility] [employer] [facility] [facility], INFLIXIMAB INTERPRETATION SEE NOTE [facility] [employer] [facility], Comment: The infliximab and infliximab anti-drug antibody [...] clinical equivalence studies, the FDA and the [place] Gastro[employer] Association advocate applying infliximab clinical guidance to the use of its biosimilars. The [place] Gastro[employer] Association recommends optimal infliximab trough concentration [...] treating healthcare professional should refer to the adult and pediatric neurologist's approved labeling for prescribing, warnings, side effects and other important information. INFLIXIMAB COMMENT SEE NOTE [employer] [employer] [facility], Comment: This test was developed and its analytical performance characteristics have been determined by [facility]. It has not been cleared or approved by FDA. This assay has been validated pursuant to the CLIA regulations and is used for clinical purposes. For additional information, please refer to https://education.C[employer]oodle/faq/WUK585 (This link is being provided for informational/educational purposes only.) FASTING:YES FASTING: YES Test Performed at: [facility] [facility] [facility], [address] [place], [place] ??[address] Aaliyah Esquivel MD,PhD,FATOU Blood 05/20/2024 11:0 3 AM CDT 05/20/2024 11:04 AM CDT Kendra Brody ANP CHEMISTRY ORDER [facility] [phone] [facility], [address] [place] [address] documented in this encounter Visit Diagnoses Diagnosis Crohn's disease of small intestine with complication- Primary Regional enteritis of small intestine Constipation, unspecified constipation type Vitamin D deficiency Unspecified vitamin D deficiency Iron deficiency anemia, unspecified iron deficiency anemia type documented in this encounter Care Teams Care Analyst Relationship Specialty Start Date End Date Ciera Saucedo FNP [address] [place] [address] PCP - General Nurse Practitioner Family 05/24/21 documented as of this encounter
--- OUTSIDE RECORDS SUMMARY | 2024-08-13 20:07 | XMS_ITS | Encounter Summary ---
Author Organization [facility] Address [address] [place] [address] Care Team Providers Care Motion Picture Cameraman Name Role Phone Ciera Saucedo Primary Care Provider [phone] Encounter Details Date Type Department Care Team (Late st Contact Info) Description 09/23/2023 External Device Data STL ABSTRACTION Provider, Abstract [...] st Contact Info) Description 09/22/2024 8:00 AM LEAN ENGINEER Office Visit [facility] IBD [facility] Gastro[facility]ology [facility] [place] [address] [facility] [address] [place] [address] Shreya Platt MD [address] [facility] [address] [place] [address] documented as of this encounter Visit Diagnoses Not on filedocumented in this encounter Care Teams Motion Picture Cameraman Relationship Specialty Start Date End Date Ciera Saucedo FNP [address] [place] [address] PCP - General Nurse Practitioner Family 05/24/21 documented as of this encounter
--- OUTSIDE RECORDS SUMMARY | 2024-08-13 20:07 | XMS_ITS | Encounter Summary ---
Author Organization [facility] Address [address] [place] [address] Care Team Providers Care Heavy Truck Driver Name Role Phone Ciera Saucedo Primary Care Provider [phone] Encounter Details Date Type Department Care Team (Late st Contact Info) Description 04/17/2024 External Device Data STL ABSTRACTION Provider, Abstract [...] st Contact Info) Description 09/22/2024 8:00 AM LOGGING CREW FOREMAN Office Visit [facility]astro[facility] [place] [address] [facility] [address] [place] [address] Shreya Platt MD [address] [facility] [address] [place] [address] documented as of this encounter Visit Diagnoses Not on filedocumented in this encounter Care Teams Heavy Truck Driver Relationship Specialty Start Date End Date Ciera Saucedo FNP [address] [place] [address] PCP - General Nurse Practitioner Family 05/24/21 documented as of this encounter
--- OUTSIDE RECORDS SUMMARY | 2024-08-13 20:07 | XMS_ITS | Encounter Summary ---
Author Organization [facility] Address [address] [place] [address] Care Team Providers Care City Recorder Name Role Phone SadiafredaÁngela BARBI Primary Care Provider [phone] Reason for Referral * Outpatient Services (Routine) - Closed Specialty Diagnoses / Procedures Referred By Contac t Referred To Contact Gastroenterology Diagnoses Iron deficiency anemia, unspecified iron deficiency anemia type Procedures INFUSION THERAPY Kendra Brody ANP [address] [place] [address] [facility] [address] [place] [address] Referral ID Status Reason Start Date Expiration Date Visits Re quested Visits Authorized [id number] Closed 09/06/2023 10/06/2024 1 1 MILL SUPERINTENDENT Encounter Details Date Type Department Care Team (Late st Contact Info) Description 09/06/2023 Orders Only [facility] IBD and Gastroenterology Center [address] [place] [address] Kendra Brody ANP [address] [place] [address] [place] [address] Fatigue, unspecified type (Primary Dx); Iron deficiency anemia, unspecified iron deficiency anemia type; Vitamin D deficiency Social History Tobacco Use Types Packs/Day Years [...] st Contact Info) Description 09/22/2024 8:00 AM SEED MILL SUPERINTENDENT Office Visit [facility] IBD and Gastroenterology Center [place] [address] [facility] [address] [place] [address] Shreya Platt MD [address] [facility] [address] [place] [address] documented as of this encounter Visit Diagnoses Diagnosis Fatigue, unspecified type- Primary Iron deficiency anemia, unspecified iron deficiency anemia type Vitamin D deficiency Unspecified vitamin D deficiency documented in this encounter Care Teams City Recorder Relationship Specialty Start Date End Date Ciera Saucedo FNP [address] [place] [address] PCP - General Nurse Practitioner Family 05/24/21 documented as of this encounter
--- OUTSIDE RECORDS SUMMARY | 2024-08-13 20:07 | XMS_ITS | Encounter Summary ---
Author Organization [facility] Address [address] [place] [address] Care Team Providers Care Storage And Backup Administrator Name Role Phone Ciera Saucedo Primary Care Provider [phone] Encounter Details Date Type Department Care Team (Late st Contact Info) Description 09/26/2023 External Device Data STL ABSTRACTION Provider, Abstract [...] st Contact Info) Description 09/22/2024 8:00 AM FRAME EXPANDER Office [facility] IBD and Gastroenterology Center [place] [address] [facility] [address] [place] [address] Shreya Platt MD [address] [facility] [address] [place] [address] documented as of this encounter Visit Diagnoses Not on filedocumented in this encounter Care Teams Storage And Backup Administrator Relationship Specialty Start Date End Date Ciera Saucedo FNP [address] [place] [address] PCP - General Nurse Practitioner Family 05/24/21 documented as of this encounter
--- OUTSIDE RECORDS SUMMARY | 2024-08-13 20:07 | XMS_ITS | Encounter Summary ---
Author Organization [facility] Address [address] [place] [address] Care Team Providers Care Powder Coater Name Role Phone Ciera Saucedo Primary Care Provider [phone] Encounter Details Date Type Department Care Team (Late st Contact Info) Description 12/04/2023 External Device Data STL ABSTRACTION Provider, Abstract [...] st Contact Info) Description 09/22/2024 8:00 AM HEALTH PHYSICIST Office Visit [facility] IBD and Gastroenterology Center [place] [address] [facility] [address] [place] [address] Shreya Platt MD [address] [facility] 100 [place] [address] documented as of this encounter Visit Diagnoses Not on filedocumented in this encounter Care Teams Powder Coater Relationship Specialty Start Date End Date Ciera Saucedo FNP [address] [email or web address] [address] PCP - General Nurse Practitioner Family 05/24/21 documented as of this encounter
--- OUTSIDE RECORDS SUMMARY | 2024-08-13 20:07 | XMS_ITS | Encounter Summary ---
Author Organization [facility] Address [address] [place] [address] Care Team Providers Care Flow Manager Name Role Phone Ciera Saucedo BARBI Primary Care Provider [phone] Reason for Visit * Reason Comments Med Refill Encounter Details Date Type Department Care Team (Late st Contact Info) Description 12/10/2023 Refill [facility] IBD and Gastroenterology Center [address] [facility] [address] [place] [address] Kendra Brody, DARNELL [address] [place] [address] Vitamin D deficiency Social History Tobacco Use [...] encounter Miscellaneous Notes * Telephone Encounter - Vanita Mantilla - 12/11/2023 12:39 PM CDT IBD CENTER MEDICATION REFILL REQUEST Medicine being refilled: ergocalciferol (VITAMIN D2) 50,000 unit capsule Last Refill: 09/06/2023 QTY: 17 RF: 0 [place]: 09/03/2023 NOV: 01/14/2024 Safety Monitoring Labs UTD? YES Assessment/Recommendations/Plan: Pennie Aguila is a 22 y.o. with [...] sooner colonoscopy. Return in 4 months with Kendra documented in this encounter Plan of Treatment Upcoming Encounters Date Type Department Care Team (Late st Contact Info) Description 09/22/2024 8:00 AM FREE LANCE ARTIST Office Visit [facility] IBD and Gastroenterology Center [place] [address] [place] [address] Shreya Platt MD [address] [place] [address] documented as of this encounter Visit Diagnoses Diagnosis Vitamin D deficiency Unspecified vitamin D deficiency documented in this encounter Care Teams Flow Manager Relationship Specialty Start Date End Date Ciera Saucedo FNP [address] [place] [address] PCP - General Nurse Practitioner Family 05/24/21 documented as of this encounter
--- OUTSIDE RECORDS SUMMARY | 2024-08-13 20:07 | XMS_ITS | Encounter Summary ---
Author Organization [facility] Address [address] [place] [address] Care Team Providers Care Inker And Opaquer Name Role Phone Ehsandinorah Ciera BARBI Primary Care Provider [phone] Reason for Referral * CT Scan (Routine) - Closed Specialty Diagnoses / Procedures Referred By Contac t Referred To Contact Radiology Diagnoses Crohn's disease of small intestine without complication Procedures CT ENTEROGRAPHY W CONTRAST Shreya Platt MD [address] [address] [facility] [place] [address] [address] Referral ID Status Reason Start Date Expiration Date Visits Re quested Visits Authorized [id number] Closed 04/20/2023 07/21/2023 1 1 Reason for Visit * CT Scan (Routine) - Closed Specialty Diagnoses / Procedures Referred By Contac t Referred To Contact Radiology Diagnoses Crohn's disease of small intestine without complication Procedures CT ENTEROGRAPHY W CONTRAST Shreya Platt MD [address] [place] [address] [facility] [place] [address] [address] Referral ID Status Reason Start Date Expiration Date Visits Re quested Visits Authorized [id number] Closed 04/20/2023 07/21/2023 1 1 Encounter Details Date Type Department Care Team (Latest Contact Info) Description 05/01/2023 10:18 AM CDT - 05/01/2023 11:59 PM CDT Hospital Encounter [facility] Imaging Services [address] [place] [address] Shreya Platt MD [address] [place] [address] Discharge Disposition: Home or Self Care Social [...] as of this encounter Progress Notes * Elisa Alston, RT - 05/01/2023 11:00 AM CDT IMAGING SERVICES - COMPUTED TOMOGRAPHY MEDICATION and FLUSH PROTOCOL [facility] THIS PROTOCOL IS IMPLEMENTED WHEN AN APPROVED PROVIDER ORDERS A CT SCAN WITH CONTRAST BY PAPER OR ELECTRONIC ORDER. The harness puller will order place an order in [place] for contrast ???Scope of Practice - no cosignrequired?? . Enter the protocol in the patient???s electronic health record using [place]: .[facility] Communication Orders: For ordered imaging procedures requiring [...] for procedure. If at any time the Cash Register Balancer has a question about which option to [...] oral. May use nasoenteric tube if needed. [place] to 3 months Administer up to 90mL [...] Iopamidol solution with the patient to CT. Administer 45mL of diluted Iopamidol oral solution, [...] less than 55kg and confirm dose with radiologist.[place] to 15 years old Administer up to 2.2mL/kg (to MAX of 80 mL) of Iopamidol (Isovue-370) 76%, intravenously, one time only 15 years old and older Administer up to 2.2mL/kg (to MAX of 125mL) of Iopamidol (Isovue-370) 76%, intravenously, one time only Initiating Department(s): Imaging Services - CT Approved by: Liseth Toledo Date: 02/2022 Approved by: Rd Mckenzie MD, Supervisor Knitting Date: 02/2022 Approved by: P&T Committee Date: 02/2022 Approved by: Medical Executive Committee Date: 02/2022 documented in this encounter Plan of Treatment Upcoming Encounters Date Type Department Care Team (Late st Contact Info) Description 09/22/2024 8:00 AM TITLE CURATIVE SPECIALIST Office Visit [facility] IBD and Gastroenterology Center [place] [address] [facility] [address] [place] [address] Shreya Platt MD [address] [facility] [address] [place] [address] documented as of this encounter Procedures Procedure Name Priority Date/Time Associated Diagnosis Comments CT ENTEROGRAPHY W CONTRAST Routine 05/01/2023 12:49 PM CDT Crohn's disease of small intestine without complication documented in this encounter Results * CT ENTEROGRAPHY W CONTRAST (05/01/2023 12:49 PM CDT) Anatomical Region Laterality Modality Chest Computed Tomogra phy 05/01/2023 12:3 9 PM CDT Impressions 05/01/2023 2:35 PM CDT IMPRESSION: 1. No bowel wall thickening, hyperenhancement or acute inflammation. 2. No bowel dilation to suggest stricture or obstruction. DICTATION LOCATION: [address] Narrative 05/01/2023 2:[address] ENTEROGRAPHY WITH CONTRAST HISTORY: Crohn's disease. 05/01/2023 12:49 PM. TECHNIQUE: Transaxial computed tomographic images of the abdomen and pelvis were obtained following administration of 120 cc Isovue 370 according to enterography protocol. Breeza was also administered per protocol. FINDINGS: The lung bases are clear. The heart size is normal. There steatosis of the liver. The gallbladder, pancreas, spleen adrenals and bilateral kidneys are normal. No bowel wall thickening no hyperenhancement or mesenteric inflammation present. No fluid is present in the abdomen. No bowel dilation to suggest stricture or obstruction. The vascular structures are normal. The bladder and uterus are normal. There is no free fluid present. The osseous structures are normal. Procedure Note Boo Stafford MD - 05/01/2023 CT ENTEROGRAPHY WITH CONTRAST HISTORY: Crohn's disease. 05/01/2023 12:49 PM. TECHNIQUE: Transaxial computed tomographic images of the abdomen and pelvis were obtained following administration of 120 cc Isovue 370 according to enterography protocol. Breeza was also administered per protocol. FINDINGS: The lung bases are clear. The heart size is normal. There steatosis of the liver. The gallbladder, pancreas, spleen adrenals and bilateral kidneys are normal. No bowel wall thickening no hyperenhancement or mesenteric inflammation present. No fluid is present in the abdomen. No bowel dilation to suggest stricture or obstruction. The vascular structures are normal. The bladder and uterus are normal. There is no free fluid present. The osseous structures are normal. IMPRESSION: 1. No bowel wall thickening, hyperenhancement or acute inflammation. 2. No bowel dilation to suggest stricture or obstruction. DICTATION LOCATION: Location [address] [place] [address] ORDERABLES documented in this encounter Visit Diagnoses Diagnosis Crohn's disease of small intestine without complication Regional enteritis of small intestine documented in this encounter Administered Medications Inactive Administered Medications - up to 3 most recent administrations Medication Order MAR Action Action Date Dose Rate Site iopamidoL (ISOVUE-370) 76% injection (drawn from multi-use bulk pack) 120 mL 120 mL, IV, INTRA-PROCEDURE ONCE, 1 dose, Starting on Sun05/01/23 at 1055, Until Sun05/01/23 at 1245, Routine Contrast Given 05/01/2023 12:45 PM CDT 120 mL documented in this encounter Care Teams Inker And Opaquer Relationship Specialty Start Date End Date Ciera Saucedo FNP [address] [place] [address] PCP - General Nurse Practitioner Family 05/24/21 documented as of this encounter
--- OUTSIDE RECORDS SUMMARY | 2024-08-13 20:07 | XMS_ITS | Encounter Summary ---
Author Organization [facility] Address [address] [place] [address] Care Team Providers Care Inspector Assemblies And Installations Name Role Phone Ciera Saucedo Primary Care Provider [phone] Encounter Details Date Type Department Care Team [...] st Contact Info) Description 09/22/2024 8:00 AM PIPE ORGAN TECHNICIAN Office Visit [facility] IBD and Gastroenterology Center [place] [address] [facility] [address] [place] [address] Shreya Platt MD [address] [facility] 100 [place] [address] documented as of this encounter Visit Diagnoses Not on filedocumented in this encounter Care Teams Inspector Assemblies And Installations Relationship Specialty Start Date End Date Ciera Saucedo FNP [address] [place] [address] PCP - General Nurse Practitioner Family 05/24/21 documented as of this encounter
--- OUTSIDE RECORDS SUMMARY | 2024-08-13 20:07 | XMS_ITS | Encounter Summary ---
Author Organization [facility] Address [address] [place] [address] Care Team Providers Care Back Panel Padder Name Role Phone Ciera Saucedo BARBI Primary Care Provider [phone] Encounter Details Date Type Department Care Team (Late st Contact Info) Description 03/19/2023 Orders Only [facility] IBD and Gastroenterology [place] [address] [place] [address] Shreya Platt MD [address] [place] [address] Crohn's disease of small intestine [...] st Contact Info) Description 09/22/2024 8:00 AM ORNAMENT MAKER HAND Office Visit [facility] IBD and Gastroenterology [facility] [address] [place] [address] Shreya Platt MD [address] [place] [address] documented as of this encounter Procedures Procedure Name Priority Date/Time Associated Diagnosis Comments CALPROTECTIN, FECAL Routine 03/29/2023 3 :31 PM CDT Crohn's disease of small intestine with complication CBC WITH DIFFERENTIAL Routine 03/23/2023 2:47 PM CDT Crohn's disease of small intestine with complication C-REACTIVE PROTEIN Routine 03/23/2023 2: 47 PM CDT Crohn's disease of small intestine with complication COMPREHENSIVE METABOLIC PANEL Routine 03/23/2023 2:47 PM CDT Crohn's disease of small intestine with complication documented in this encounter Results * CALPROTECTIN, FECAL (03/29/2023 3:31 PM CDT) CALPROTECTIN, FECAL 15 mcg/g [facility], Comment: ?Reference Range: ?<50 ? Normal ?50-120 ??Borderline ?>120 ?Elevated Calprotectin in Crohn's disease and ulcerative colitis can be five to several thousand times above the reference population (50 mcg/g or less). Levels are usually 50 mcg/g or less in healthy patients and with irritable bowel syndrome. Repeat testing in 4-6 weeks is suggested for borderline values. FASTING:NO FASTING: NO Test Performed at: [employer], [address] [place], [place] ??[address] Aaliyah Esquivel MD,PhD,FATOU Stool STOOL SPECIMEN / Unknown 03/29/2023 3:31 PM CDT 03/30/2023 3:18 AM CDT Shreya Platt MD BODY FLUIDS AND S TOOLS Performing Organization Address [facility] Co de Phone Number [facility] [phone] [facility], [address] [place] [address] * C-REACTIVE PROTEIN (03/23/2023 2:47 PM CDT) CRP 1.8 <8.0 mg/L [employer] Comment: FASTING:NO FASTING: NO Test Performed at: [facility] ??[address] Marce Pittman MD Blood 03/23/2023 2:47 PM CDT 03/23/2023 2:48 PM CDT Shreya Platt MD CHEMISTRY ORDERAB LES Performing Organization Address [facility] Co de Phone Number [facility] [phone] [facility] [address] * COMPREHENSIVE METABOLIC PANEL (03/23/2023 2:47 PM CDT) GLUCOSE 85 65 - 139 mg/dL [facility] Comment: ? Non-fasting reference interval BUN 12 7 - 25 mg/dL [facility] CREATININE 0.71 0.50 - 0.96 mg/dL [facility] GFR 122 > OR = 60 mL/min/1 .73m2 [facility] Comment: The eGFR is based on the CKD-EPI 2020 equation. To calculate the new eGFR from a previous Creatinine or Cystatin C result, go to https://www.kidney.org/professionals/ kdoqi/gfr%5Fcalculator BUN/CREAT RATIO NOT APPLICABLE 6 - 22 (calc) [facility] SODIUM 136 135 - 146 mmol/L [employer] POTASSIUM 4.1 3.5 - 5.3 mmol/L [facility] CHLORIDE 104 98 - 110 mmol/L [facility] CO2 27 20 - 32 mmol/L [facility] CALCIUM 9.1 8.6 - 10.2 mg/dL [facility] TOTAL PROTEIN 7.1 6.1 - 8.1 g/dL [facility] ALBUMIN 4.2 3.6 - 5.1 g/dL [facility] GLOBULIN 2.9 1.9 - 3.7 g/dL (calc) [facility] ALBUMIN/GLOBULIN RATIO 1.4 1.0 - 2.5 (calc) [facility] BILIRUBIN TOTAL 0.5 0.2 - 1.2 mg/dL [facility] ALKALINE PHOSPHATASE 72 31 - 125 U/L [facility] AST 16 10 - 30 U/L [facility] ALT 23 6 - 29 U/L [facility] Comment: FASTING:NO FASTING: NO Test Performed at: [place] [address] [place], [place] ??[address] Marce Pittman Blood 03/23/2023 2:47 PM CDT 03/23/2023 2:48 PM CDT Shreya Platt MD CHEMISTRY ORDERAB LES [facility] [phone] [place] [address] [place] [address] * (ABNORMAL) CBC WITH DIFFERENTIAL (03/23/2023 2:47 PM CDT) WBC 5.3 3.8 - 10.8 Thousand/ uL [facility] RBC 4.05 3.80 - 5.10 Million/u L [employer] HEMOGLOBIN 10.7(L) 11.7 - 15.5 g/dL [facility] HEMATOCRIT 34.3(L) 35.0 - 45.0 % [facility] MCV 84.7 80.0 - 100.0 fL [facility] MCH 26.4(L) 27.0 - 33.0 pg [facility] MCHC 31.2(L) 32.0 - 36.0 g/dL [facility] RDW 12.9 11.0 - 15.0 % [facility] PLATELETS 313 140 - 400 Thousand/ uL [facility] MPV 10.5 7.5 - 12.5 fL [facility] NEUTROPHIL ABSOLUTE 1,542 1,500 - 7,800 cells/uL [facility] LYMPHOCYTE ABSOLUTE 3,244 850 - 3,900 cells/uL [facility] MONOCYTE ABSOLUTE 360 200 - 950 cells/uL [facility] EOSINOPHIL ABSOLUTE 122 15 - 500 cells/uL [facility] BASOPHILS ABSOLUTE 32 0 - 200 cells/uL [facility] NEUTROPHIL 29.1 % [facility] LYMPHOCYTES 61.2 % [facility] MONOCYTE 6.8 % [facility] EOSINOPHILS 2.3 % [facility] BASOPHILS 0.6 % [facility] Comment: FASTING:NO FASTING: NO Test Performed at: [employer] [address] [place], [place] ??[address] KerlineTimStephanie Shannan Pittman Blood 03/23/2023 2:47 PM CDT 03/23/2023 2:48 PM CDT Shreya Platt MD HEMATOLOGY ORDERA BLES [facility] [phone] [facility] [address] [place] [address] documented in this encounter Visit Diagnoses Diagnosis Crohn's disease of small intestine with complication- Primary Regional enteritis of small intestine documented in this encounter Care Teams Back Panel Padder Relationship Specialty Start Date End Date Ciera Saucedo FNP [address] [place] [address] PCP - General Nurse Practitioner Family 05/24/21 documented as of this encounter
--- OUTSIDE RECORDS SUMMARY | 2024-08-13 20:07 | XMS_ITS | Encounter Summary ---
Author Organization [facility] Address [address] [place] [address] Care Team Providers Care Executive Associate Name Role Phone Ciera Saucedo Primary Care Provider Encounter Details Date Type Department Care Team (Late st Contact Info) Description 10/19/2023 External Device Data STL ABSTRACTION Provider, Abstract [...] st Contact Info) Description 09/22/2024 8:00 AM SCIENTIFIC TECHNICAL WRITER Office Visit [facility] IBD and Gastroenterology Center [place] [address] [facility] [address] [place] [address] Shreya Platt MD [address] [facility] 100 [place] [address] documented as of this encounter Visit Diagnoses Not on filedocumented in this encounter Care Teams Executive Associate Relationship Specialty Start Date End Date Ciera Saucedo FNP [address] [place] [address] PCP - General Nurse Practitioner Family 05/24/21 documented as of this encounter
--- OUTSIDE RECORDS SUMMARY | 2024-08-13 20:07 | XMS_ITS | Encounter Summary ---
Author Organization [facility] Address [address] [place] [address] Care Team Providers Care Recycle Coordinator Name Role Phone Ciera Saucedo Primary Care Provider [phone] Encounter Details Date Type Department Care Team [...] st Contact Info) Description 09/22/2024 8:00 AM NEW PATIENT ESCORT Office Visit [facility] IBD and Gastroenterology Center [place] [address] [facility] [address] [place] [address] Shreya Platt MD [address] [facility] 100 [place] [address] documented as of this encounter Visit Diagnoses Not on filedocumented in this encounter Care Teams Recycle Coordinator Relationship Specialty Start Date End Date Ciera Saucedo FNP [address] [place] [address] PCP - General Nurse Practitioner Family 05/24/21 documented as of this encounter
--- OUTSIDE RECORDS SUMMARY | 2024-08-13 20:07 | XMS_ITS | Encounter Summary ---
Author Organization [facility] Address [address] [place] [address] Care Team Providers Care Dietary Aide Cook Name Role Phone Ciera Saucedo Primary Care Provider [phone] Encounter Details Date Type Department Care Team [...] st Contact Info) Description 09/22/2024 8:00 AM TUBE BACKER Office Visit [facility] IBD and Gastroenterology [facility] [place] [address] [facility] [address] [place] [address] Shreya Platt MD [address] [facility] 100 [place] [address] documented as of this encounter Visit Diagnoses Not on filedocumented in this encounter Care Teams Dietary Aide Cook Relationship Specialty Start Date End Date Ciera Saucedo FNP [address] [place] [address] PCP - General Nurse Practitioner Family 05/24/21 documented as of this encounter
--- OUTSIDE RECORDS SUMMARY | 2024-08-13 20:07 | XMS_ITS | Encounter Summary ---
Author Organization [facility] Address [address] [place] [address] Attn: [place] [address] Care Team Providers Care Bar Gauger And Lubricator Tender Name Role Phone Ciera Saucedo BARBI Primary Care Provider [phone] Encounter Details Date Type Department Care Team (Late Contact Info) Description 07/21/2024 Orders Only Initial Department [address] [place] [address] ATTN: [place] [address] Provider, Historical Social History Tobacco Use Types [...] (Late Contact Info) Description 09/22/2024 8:00 AM METER/RELAY CRAFTSMAN Office Visit [facility] IBD and Gastroenterology Center [place] [address] [facility] [address] [place] [address] Shreya Platt MD [address] [facility] 100 [place] [address] documented as of this encounter Procedures Procedure Name Priority Date/Time Associated Diagnosis Comments INFLIXIMAB LEVEL PANEL Routine 07/21/2024 12:50 PM METER/RELAY CRAFTSMAN documented in this encounter Results * INFLIXIMAB LEVEL PANEL (07/21/2024 12:50 PM METER/RELAY CRAFTSMAN) INFLIXIMAB LEVEL, IBD >50.0 mcg/mL [facility], INFLIXIMAB AB, IBD <10 <10 AU Q [facility], INFLIXIMAB INTERPRETATION SEE NOTE [facility], Comment: The infliximab and infliximab anti-drug antibody [...] clinical equivalence studies, the FDA and the [place] Gastro[employer] Association advocate applying infliximab clinical guidance to the use of its biosimilars. The [place] Gastro[employer] Association recommends optimal infliximab trough concentration [...] treating healthcare professional should refer to the motor builder winder's approved labeling for prescribing, warnings, side effects and other important information. INFLIXIMAB COMMENT SEE NOTE Q [facility], Comment: This test was developed and its analytical performance characteristics have been determined by [facility]. It has not been cleared or approved by FDA. This assay has been validated pursuant to the CLIA regulations and is used for clinical purposes. For additional information, please refer to https://education.[employer].Revizer/faq/OZH644 (This link is being provided for informational/educational purposes only.) TOOK VITAMINS, TESTS SHOWS NOT TO FASTING:NO FASTING: NO Test Performed at: [facility], [address] [facility], [place] ??[address] Aaliyah Esquivel MD,PhD,FATOU 07/21/2024 12:5 0 PM METER/RELAY CRAFTSMAN 07/21/2024 12:54 PM METER/RELAY CRAFTSMAN Kendra Brody ANP CHEMISTRY ORDER [facility] [phone] [facility], [address] [place] [address] documented in this encounter Visit Diagnoses Not on filedocumented in this encounter Care Teams Bar Gauger And Lubricator Tender Relationship Specialty Start Date End Date Ciera Saucedo FNP [address] [place] [address] PCP - General Nurse Practitioner Family 05/24/21 documented as of this encounter
--- OUTSIDE RECORDS SUMMARY | 2024-08-13 20:07 | XMS_ITS | Encounter Summary ---
Author Organization [facility] Address [address] [place] [address] Care Team Providers Care Brush Stainer Name Role Phone Ciera Saucedo Primary Care Provider [phone] Encounter Details Date Type Department Care Team [...] st Contact Info) Description 09/22/2024 8:00 AM GROCERY CADDY Office Visit [facility] IBD and Gastro[facility]ology [facility] [place] [address] [facility] [address] [place] [address] Shreya Platt MD [address] [facility] 100 [place] [address] documented as of this encounter Visit Diagnoses Not on filedocumented in this encounter Care Teams Brush Stainer Relationship Specialty Start Date End Date Ciera Saucedo FNP [address] [place] [address] PCP - General Nurse Practitioner Family 05/24/21 documented as of this encounter
--- OUTSIDE RECORDS SUMMARY | 2024-08-13 20:07 | XMS_ITS | Encounter Summary ---
Author Organization [facility] Address [address] [place] [address] Care Team Providers Care Aircraft Dispatcher Name Role Phone Ciera Saucedo Primary Care Provider [phone] Encounter Details Date Type Department Care Team (Late st Contact Info) Description 02/26/2024 External Device Data STL ABSTRACTION Provider, Abstract [...] st Contact Info) Description 09/22/2024 8:00 AM CURATOR OF EDUCATION Office Visit [facility] IBD and Gastroenterology [facility] [place] [address] [facility] [address] [place] [address] Shreya Platt MD [address] [facility] 100 [place] [address] documented as of this encounter Visit Diagnoses Not on filedocumented in this encounter Care Teams Aircraft Dispatcher Relationship Specialty Start Date End Date Ciera Saucedo FNP [address] [place] [address] PCP - General Nurse Practitioner Family 05/24/21 documented as of this encounter
--- OUTSIDE RECORDS SUMMARY | 2024-08-13 20:07 | XMS_ITS | Encounter Summary ---
Author Organization [facility] Address [address] [place] [address] Care Team Providers Care Burglar Alarm Superintendent Name Role Phone Ciera Saucedo Primary Care Provider [phone] Encounter Details Date Type Department Care Team [...] st Contact Info) Description 09/22/2024 8:00 AM PROMOTIONS FIRM ACCOUNTS MANAGER Office Visit [facility] IBD and Gastroenterology Center [place] [address] [address] [place] [address] Shreya Platt MD [address] [facility] 100 [place] [address] documented as of this encounter Visit Diagnoses Not on filedocumented in this encounter Care Teams Burglar Alarm Superintendent Relationship Specialty Start Date End Date Ciera Saucedo FNP [address] [place] [address] PCP - General Nurse Practitioner Family 05/24/21 documented as of this encounter
--- OUTSIDE RECORDS SUMMARY | 2024-08-13 20:07 | XMS_ITS | Encounter Summary ---
Author Organization [facility] Address [address] [place] [address] Care Team Providers Care Matrix Repairer Name Role Phone Ciera Saucedo BARBI Primary Care Provider [phone] Reason for Visit * Reason Onset Date Comments infusion refusal 2023 Encounter Details Date Type Department Care Team (Late st Contact Info) Description 2023 Telephone [facility] IBD and Gastroenterology Center [address] [address] Kendra Brody, DARNELL [address] [facility] 100 [place] [address] infusion refusal Social History Tobacco Use Types Packs/Day Years [...] encounter Miscellaneous Notes * Telephone Encounter - Davida Michelle RN - 2023 9:14 AM CST [facility] home infusion called to make us aware that the patient has refused to set up her Iron infusions. This RN called the patient on 10/05/23 at 0911 and left message for the patient to call us back todiscuss this decision. Update-10/05/23 10:31 am Patient called to let us know she was hesitant on the iron infusions. I explained that I would be happy to set up a video visit with Kendra to go over any concerns the patient may have. She said she has been taking vitamins which seem to be helping. Timing is also an issue with her infusions. Patient is to call with any questions or concerns. I made patient aware of her very low iron levels and the importance of these iron infusions. Patient verbalized understanding and will call with any other questions or concerns. R ATTENDANT documented in this encounter Plan of Treatment Upcoming Encounters Date Type Department Care Team (Late st Contact Info) Description 09/22/2024 8:00 AM DRIER ATTENDANT Office Visit [facility] IBD and Gastroenterology Center [place] [address] [facility] [address] [place] [address] Shreya Platt MD [address] [facility] [address] [place] [address] documented as of this encounter Visit Diagnoses Not on filedocumented in this encounter Care Teams Matrix Repairer Relationship Specialty Start Date End Date Ciera Saucedo FNP [address] [facility] [place] [address] PCP - General Nurse Practitioner Family 05/24/21 documented as of this encounter
--- OUTSIDE RECORDS SUMMARY | 2024-08-13 20:07 | XMS_ITS | Encounter Summary ---
Author Organization [facility] Address [address] [place] [address] Care Team Providers Care Order Caller Name Role Phone Ciera Saucedo Primary Care Provider [phone] Encounter Details Date Type Department Care Team (Late st Contact Info) Description 11/09/2023 External Device Data STL ABSTRACTION Provider, Abstract [...] st Contact Info) Description 09/22/2024 8:00 AM WOOD WINDOW AND DOOR CRAFTSMAN Office Visit [facility] IBD and Gastroenterology Center [place] [address] [facility] [address] [place] [address] Shreya Platt MD [address] [facility] [address] [place] [address] documented as of this encounter Visit Diagnoses Not on filedocumented in this encounter Care Teams Order Caller Relationship Specialty Start Date End Date Ciera Saucedo FNP [address] [place] [address] PCP - General Nurse Practitioner Family 05/24/21 documented as of this encounter
--- OUTSIDE RECORDS SUMMARY | 2024-08-13 20:07 | XMS_ITS | Encounter Summary ---
Author Organization [facility] Address [address] [place] [address] Care Team Providers Care Animal Anatomist Name Role Phone Ciera Saucedo BARBI Primary Care Provider [phone] Encounter Details Date Type Department Care Team (Late st Contact Info) Description 06/22/2023 Orders Only [facility] Oncology and Hematology - [place] [address] [facility] 200 [place] [address] Alli Cao MD [address] [facility] [address] [place] [address] Social History Tobacco Use Types Packs/Day Years [...] st Contact Info) Description 09/22/2024 8:00 AM OIL BURNER SERVICER AND INSTALLER Office Visit [facility] IBD and Gastroenterology Center [place] [address] [facility] 180 [place] [address] Shreya Platt MD [address] [facility] 100 [place] [address] documented as of this encounter Procedures Procedure Name Priority Date/Time Associated Diagnosis Comments COMPREHENSIVE METABOLIC PANEL Routine 06/21/2023 12:25 PM CDT IRON, TIBC, AND PERCENT SATURATION Routine 06/21/2023 12:10 PM CDT CBC WITH AUTODIFFERENTIAL Routine 2022 9:31 AM CDT documented in this encounter Results * COMPREHENSIVE METABOLIC PANEL (06/21/2023 12:25 PM CDT) Blood Alli Cao MD CHEMISTRY ORDERABLES * IRON, TIBC, AND PERCENT SATURATION (06/21/2023 12:10 PM CDT) Blood Alli Cao MD CHEMISTRY ORDERABLES * CBC WITH AUTODIFFERENTIAL (06/21/2023 9:31 AM CDT) Blood Alli Cao MD HEMATOLOGY ORDERABLE S documented in this encounter Visit Diagnoses Not on filedocumented in this encounter Care Teams Animal Anatomist Relationship Specialty Start Date End Date Ciera Saucedo FNP [address] [place] [address] PCP - General Nurse Practitioner Family 05/24/21 documented as of this encounter
--- OUTSIDE RECORDS SUMMARY | 2024-08-13 20:07 | XMS_ITS | Encounter Summary ---
Author Organization [facility] Address [address] [place] [address] Care Team Providers Care Associate Producer Name Role Phone Ciera Saucedo BARBI Primary Care Provider [phone] Reason for Visit * Reason Comments Establish Care Encounter Details Date Type Department Care Team (Late st Contact Info) Description 06/20/2023 10:30 AM CDT Office Visit [facility] Oncology and Hematology - [place]k [address] [place] [address] [address] [place] [address] Alli Cao MD [address] [facility] [address] [place] [address] Leukocytosis, unspecified type (Primary Dx); Chronic anemia Social History Tobacco Use Types Packs/Day Years [...] Sign Reading Time Taken Comments Blood Pressure 127/64 06/20/2023 10:53 AM CDT Pulse 78 06/20/2023 10:53 AM CDT Temperature 36.2 ??C (97.2 ??F) 06/20/2023 10:53 AM C DT Respiratory Rate 10 06/20/2023 10:53 AM CDT Oxygen Saturation 100% 06/20/2023 10:53 AM CDT Inhaled Oxygen Concentration - - Weight 105.2 kg (232 lb) 06/20/2023 10:53 AM CDT Height 162.6 cm (5' 4 ) 06/20/2023 10:53 AM CDT Body Mass Index 39.82 06/20/2023 10:53 AM CDT documented in this encounter Progress Notes * Alli Cao MD - 06/20/2023 12:23 PM CDT Hematology-oncology consult Note Requesting Physician Ciera Saucedo FNP Primary Care Physician Ciera Saucedo FNP Problem list Patient Active Problem List Diagnosis Code Crohn's disease K50.90 Previous TREATMENT ? Measurable Disease ? Reason for Visit Pennie Aguila is a 22 y.o. female who was referred for consultation for leukocytosis. History of present illness This is a pleasant 22-year-old obese female with history of Crohn's disease diagnosed in March 2021 currently on infliximab since her diagnosis on a monthly basis. She has been complainingof tiredness and fatigue. Patient had done on January 31, 2023 and feeling more tired and fatigued since then. She has occasional diarrhea and bright red blood in the stool. She also has been complaining of lower pelvic and abdominal pain. In April she broke up with a rash involving the entire body and the labs at that time showed WBC count of 3.3. Previously her labs from January showed elevated WBC of 13.4 with hemoglobin of 9.3. She is intolerant to oral iron due to constipation and discontinued in November 2022. She is on vitamin. She has lost 47 pounds after the delivery. She has lost her appetite. Denies any other new complaints. Past Medical History Past Medical History: Diagnosis Date Crohn's disease GERD (gastroesophageal reflux disease) 03/31/2021 Inflammatory bowel disease 03/31/2021 Surgical History Past Surgical History: Procedure Laterality Date HX COLONOSCOPY 03/31/2021 HX UPPER ENDOSCOPY 03/31/2021 Medications No current outpatient medications on file. No current facility-administered medications for this visit. Allergies No Known Allergies Immunizations: There is no immunization history on file for this patient. Family History Family History Problem Relation Name Age of Onset Crohn's Disease Sister Nae Aguila Inflammatory Bowel Disease Sister Nae Aguila Cancer Maternal Uncle Kavon Rajan Pancreatic/ Bile duct Diabetes Paternal Uncle Pedro Aguila Social History Social History Tobacco Use Smoking status: Never Smokeless tobacco: Never Substance Use Topics Alcohol use: Never Alcohol/week: 5.0 standard drinks of alcohol Types: 1 Glasses of wine, 3 Shots of liquor, 1 Standard drinks or equivalent per week Review of Systems Constitutional: Patient did not mention fever; no night sweats; complain of poor appetite with 47 pound weight loss since the section, complain of tiredness and fatigue NEENT: Patient did not mention headache; no change in vision; no change in hearing; no sore throat;no dysphagia Respiratory: Patient did not mention shortness of breath; no pleuritic chest pain; no cough; no hemoptysis Cardiac: Patient did not mention cardiac-like chest pain; no palpitations; no orthopnea; no PND; noDOE Breasts: Patient did not mention tenderness; no masses GI: Patient did not mention abdominal pain; no nausea; no vomiting; no diarrhea; no hematochezia; no melena : Patient did not mention dysuria; no frequency; no hesitancy; no hematuria CAR DETAILER: Musculosketetal: Patient did not mention bone pain; no arthralgia; no joint swelling; no myalgia; Skin: Patient did not mention pruritis; no rash; no petechiae; no ecchymoses Endocrine: Patient did not mention polydipsia; no polyuria; no unusual weight gain Neuro: Patient did not mention headache; no change in vision; no sensory changes; no muscle weakness; no confusion; no seizures Psych: Patient did not mention anxiety; no depression; Physical Exam Vitals: As per nursing note Constitutional: Well developed, well nourished, no acute distress, non-toxic appearance Teeth and gum. No signs of infection or swelling. Eyes: PERRL, conjunctiva normal HEENT: Atraumatic, external ears normal, nose normal, oropharynx moist, no pharyngeal exudates. no sinus tenderness Neck- normal range of motion, no tenderness, supple Respiratory: No respiratory distress, normal breath sounds, no rales, no wheezing Cardiovascular: Normal rate, normal rhythm, no murmurs, no gallops, no rubs GI: Soft, nondistended, normal bowel sounds, nontender, no splenomegaly, no hepatomegaly, no mass, no rebound, no guarding : No costovertebral angle tenderness Musculoskeletal: No edema, no tenderness, no deformities. Back- no tenderness Integument: Well hydrated, no rash, Digits and nails inspection normal Lymphatic: No lymphadenopathy noted Neurologic: Alert & oriented x 3, CN 2-12 normal, normal motor function, normal sensory function, no focal deficits noted Psychiatric: Speech and behavior appropriate ? labs No results found for this or any previous visit (from the past 24 hour(s)). Labs from May 09, 2023 showed WBC 3.3 hemoglobin 11.5 platelet 294,000. Previously labs from February 01 showed WBC of 13.4 with hemoglobin of 9.3. Pathology ? Imaging & Other Studies Performance Status? Assessment / Plan: ? Leukocytosis and anemia. Patient is a pleasant obese 22-year-old female with history of Crohn's disease diagnosed in March 2021. She has been on infliximab currently on every month basis for last 2 years duration. She is still dealing with diarrhea and bright red blood in the stool occasionally along with lower pelvic and abdominal pain. I have reviewed the labs that showed elevated WBC count in January and then subsequent drop in WBC in April. Looks like her WBC count is fluctuating due to flareup of the Crohn's disease. I do not see any indication of lymphoma and leukemia on myexamination. We will order the work-up that would include CBC with differential, CMP, C-reactive protein, sedimentation rate and flow cytometric analysis for leukemia panel. We will follow-up with her in the office in 2 to 3 weeks to discuss findings and further recommendations. Anemia. Likely secondary to iron deficiency anemia. She is intolerant to oral iron. We will repeat iron studies and vitamin B12 level today. She is quite symptomatic with tiredness and fatigue. Basedon the iron levels we will decide about iron infusion. I have answered all the questions to patient's satisfaction. Crohn disease. She is on infliximab and will follow-up with the director of grants. Thank you very much for allowing me to participate in Pennie Aguila's evaluation and management. Please feel free to contact if I can be of any further assistance in your patient???s care requiring hematology or oncology evaluation. Sincerely, ? ? Alli [phone]) [phone] cell [employer]SEL[employer] She is not a tobacco/nicotine user. Alli Cao MD ,06/20/2023 12:23 PM ? Total time spent 60 minutes, two third of the total time spent counseling patient [id number]. CC:?Ciera Saucedo FNP documented in this encounter Plan of Treatment Upcoming Encounters Date Type Department Care Team (Late st Contact Info) Description 09/22/2024 8:00 AM FAN MAIL CLERK Office Visit [facility] IBD and Gastroenterology [facility] [place] [address] [facility] 180 [place] [address] Shreya Platt MD [address] [place] [address] documented as of this encounter Visit Diagnoses Diagnosis Leukocytosis, unspecified type- Primary Chronic anemia Anemia, unspecified documented in this encounter Care Teams Associate Producer Relationship Specialty Start Date End Date Ciera Saucedo FNP [address] [place] [address] PCP - General Nurse Practitioner Family 05/24/21 documented as of this encounter
--- OUTSIDE RECORDS SUMMARY | 2024-08-13 20:07 | XMS_ITS | Encounter Summary ---
Author Organization [facility] Address [address] [place] [address] Care Team Providers Care Liner Inserter Name Role Phone Ciera Saucedo Primary Care Provider [phone] Encounter Details Date Type Department Care Team (Late st Contact Info) Description 03/04/2024 External Device Data STL ABSTRACTION Provider, Abstract [...] st Contact Info) Description 09/22/2024 8:00 AM ACCOUNT PLANNER Office Visit [facility] IBD and Gastroenterology Center [place] [address] [facility] [address] [place] [address] Shreya Platt MD [address] [facility] [address] [place] [address] documented as of this encounter Visit Diagnoses Not on filedocumented in this encounter Care Teams Liner Inserter Relationship Specialty Start Date End Date Ciera Saucedo FNP [address] [place] [address] PCP - General Nurse Practitioner Family 05/24/21 documented as of this encounter
--- OUTSIDE RECORDS SUMMARY | 2024-08-13 20:07 | XMS_ITS | Encounter Summary ---
Author Organization [facility] Address [address] [place] [address] Care Team Providers Care Noc Technician Name Role Phone Ciera Saucedo BARBI Primary Care Provider [phone] Encounter Details Date Type Department Care Team (Late st Contact Info) Description 06/20/2023 Abstract [facility] Oncology and Hematology - Ck [address] [facility] 200 [place] [address] Alli Cao MD [address] [facility] [address] [place] [address] Social History Tobacco Use Types [...] st Contact Info) Description 09/22/2024 8:00 AM OPHTHALMIC MEDICAL TECHNOLOGIST Office Visit [facility] IBD and Gastroenterology Center [place] [address] [facility] [address] [place] [address] Shreya Platt MD [address] [facility] [address] [place] [address] documented as of this encounter Visit Diagnoses Not on filedocumented in this encounter Care Teams Noc Technician Relationship Specialty Start Date End Date Ciera Saucedo FNP [address] [place] [address] PCP - General Nurse Practitioner Family 05/24/21 documented as of this encounter
--- OUTSIDE RECORDS SUMMARY | 2024-08-13 20:07 | XMS_ITS | Encounter Summary ---
Author Organization [facility] Address [address] [place] [address] Care Team Providers Care Payable Representative Name Role Phone Ciera Saucedo Primary Care Provider [phone] Encounter Details Date Type Department Care Team [...] st Contact Info) Description 09/22/2024 8:00 AM STRIPPER MACHINE OPERATOR Office Visit [facility] IBD and Gastroenterology Center [place] [address] [place] [address] Shreya Platt MD [address] [facility] 100 [place] [address] documented as of this encounter Visit Diagnoses Not on filedocumented in this encounter Care Teams Payable Representative Relationship Specialty Start Date End Date Ciera Saucedo FNP [address] [email or web address] [address] PCP - General Nurse Practitioner Family 05/24/21 documented as of this encounter
--- OUTSIDE RECORDS SUMMARY | 2024-08-13 20:08 | XMS_ITS | Encounter Summary ---
Author Organization [facility] Address [address] [place] [address] Care Team Providers Care Voicer Name Role Phone Ciera Saucedo BARBI Primary Care Provider [phone] Encounter Details Date Type Department Care Team (Late st Contact Info) Description 10/24/2021 Chart Note [facility] Gastroenterology [facility] [address] [facility] [address] [place] [address] Shreya Platt MD [address] [facility] [address] 100 [place] [address] Social History Tobacco Use Types Packs/Day Years Used Date Smoking Tobacco: Never Alcohol Use Standard Drinks/Week Comments Yes 0 (1 standard drink = 0.6 oz pur e alcohol) Sex and Gender Information Value Date Recorded Sex Assigned at Female 04/18/2023 4:58 PM CDT Gender Identity Female 04/18/2023 4:58 PM CDT Sexual Orientation Not on file documented as of this encounter Progress Notes * Dleia Fernandez - 10/24/2021 2:58 PM CST Received message from [facility] Case Review for start of patient's Inflectra infusions. . Inflectra has been authorized starting 10.17.21 to 01.15.22. auth # [id number] x 3 visits. [facility] Home Health Certification letter being faxed and will need further clinical to approve for the remaining 9 months after the first 3 have been completed. . Delia Gomez LIANCE SPECIALIST documented in this encounter Plan of Treatment Upcoming Encounters Date Type Department Care Team (Late st Contact Info) Description 09/22/2024 8:00 AM COMPLIANCE SPECIALIST Office Visit [facility] IBD and Gastroenterology Center [place] [address] [place] [address] Shreya Platt MD [address] [place] [address] documented as of this encounter Visit Diagnoses Not on filedocumented in this encounter Care Teams Voicer Relationship Specialty Start Date End Date Ciera Saucedo FNP [address] [place] [address] PCP - General Nurse Practitioner Family 05/24/21 documented as of this encounter
--- OUTSIDE RECORDS SUMMARY | 2024-08-13 20:08 | XMS_ITS | Encounter Summary ---
Author Organization [facility] Address [address] [facility] Attn: [place] [address] Care Team Providers Care Residential Mortgage Manager Name Role Phone Ciera Saucedo BARBI Primary Care Provider [phone] Encounter Details Date Type Department Care Team (Latest Contact Info) Description 05/25/2021 Travel Social History Tobacco Use Types Packs/Day Years Used Date Smoking Tobacco: Never Alcohol Use Standard Drinks/Week Comments Yes 0 (1 standard drink = 0.6 oz pur e alcohol) Sex and Gender Information Value Date Recorded Sex Assigned at Female 04/18/2023 4:58 PM CDT Gender Identity Female 04/18/2023 4:58 PM CDT Sexual Orientation Not on file COVID-19 Exposure Response Date Recorded In the last month, have you been in contact with someone who was confirmed or suspected to have Coronavirus / COVID-19? No / Unsure 05/25/2021 8:58 AM CDT documented as of this encounter Plan of Treatment Upcoming Encounters Date Type Department Care Team (Late st Contact Info) Description 09/22/2024 8:00 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 QUILTING Office Visit [facility] IBD and Gastroenterology Center [place] [address] [facility] [address] [place] [address] Shreya Platt MD [address] [facility] 100 [place] [address] documented as of this encounter Visit Diagnoses Not on filedocumented in this encounter Care Teams Residential Mortgage Manager Relationship Specialty Start Date End Date Ciera Saucedo FNP [address] [place] [address] PCP - General Nurse Practitioner Family 05/24/21 documented as of this encounter
--- OUTSIDE RECORDS SUMMARY | 2024-08-13 20:08 | XMS_ITS | Encounter Summary ---
Author Organization [facility] Address [address] [place] [address] Care Team Providers Care Locker Operator Name Role Phone Ciera Saucedo BARBI Primary Care Provider Reason for Visit * Reason Onset Date Comments lab order 10/23/2021 Encounter Details Date Type Department Care Team (Late st Contact Info) Description 10/23/[address] [facility] IBD and Gastroenterology Center [address] [address] Shreya Platt MD [address] [facility] 100 [place] [address] lab order Social History Tobacco Use Types Packs/Day Years [...] encounter Miscellaneous Notes * Telephone Encounter - Shreya Platt MD - 10/23/2021 6:45 AM CURRICULUM SPECIALIST ----- Message from Liliya Carson sent at 10/12/2021 7:53 AM CURRICULUM SPECIALIST ----- Regarding: TB Gold Please put in lab order for TB Gold.... Thank you!! ICULUM SPECIALIST documented in this encounter Plan of Treatment Upcoming Encounters Date Type Department Care Team (Late st Contact Info) Description 09/22/2024 8:00 AM CURRICULUM SPECIALIST Office Visit [facility] IBD and Gastroenterology Center [place] [address] [place] [address] Shreya Platt MD [address] [place] [address] documented as of this encounter Visit Diagnoses Diagnosis Crohn's disease of small and large intestines with complication- Primary documented in this encounter Care Teams Locker Operator Relationship Specialty Start Date End Date Ciera Saucedo FNP [address] [place] [address] PCP - General Nurse Practitioner Family 05/24/21 documented as of this encounter
--- OUTSIDE RECORDS SUMMARY | 2024-08-13 20:08 | XMS_ITS | Encounter Summary ---
Author Organization [facility] Address [address] [place] [address] Care Team Providers Care Cryptozoologist Name Role Phone Ciera Saucedo BARBI Primary Care Provider [phone] Encounter Details Date Type Department Care Team (Late Contact Info) Description 06/08/2021 Abstract [facility] Gastroenterology [facility] [address] [facility] [address] [place] [address] Shreya Platt MD [address] [place] [address] Social History Tobacco Use Types [...] (Late Contact Info) Description 09/22/2024 8:00 AM HOME HEALTH SPECIALIST Office Visit [facility] IBD and Gastroenterology Center [place] [address] [place] [address] Shreya Platt MD [address] [facility] 100 [place] [address] documented as of this encounter Visit Diagnoses Not on filedocumented in this encounter Care Teams Cryptozoologist Relationship Specialty Start Date End Date Ciera Saucedo FNP [address] [place] [address] PCP - General Nurse Practitioner Family 05/24/21 documented as of this encounter
--- OUTSIDE RECORDS SUMMARY | 2024-08-13 20:08 | XMS_ITS | Encounter Summary ---
Author Organization [facility] Address [address] [place] [address] Care Team Providers Care Prover Name Role Phone Ehsandinorah Ciera BARBI Primary Care Provider [phone] Reason for Referral * CT Scan (Urgent) - Closed Specialty Diagnoses / Procedures Referred By Carolina song Referred To Contact Radiology Diagnoses Crohn's disease of small intestine with complication Procedures CT ENTEROGRAPHY W CONTRAST Shreya Platt MD [address] [facility] 100 [place] [address] [facility] [address] Scan [address] [place] [address] Referral ID Status Reason Start Date Expiration Date Visits Re quested Visits Authorized [id number] Closed 02/10/2022 05/12/2022 1 1 * Eval and Treat (Routine) - Closed Specialty Diagnoses / Procedures Referred By Carolina song Referred To Contact Gastroenterology Diagnoses Crohn's disease of small intestine with complication Shreya Platt MD [address] [facility] 100 [place] [address] [facility] Ibd And Gastroenterology Center [address] [address] Referral ID Status Reason Start Date Expiration Date Visits Re quested Visits Authorized [id number] Closed 02/08/2022 02/08/2023 1 1 Reason for Visit * Reason Comments Follow Up Encounter Details Date Type Department Care Team (Latest Contact Info) Description 02/08/2022 12:00 PM CDT Office Visit [facility] IBD and Gastroenterology Center [address] [address] Shreya Platt MD [address] [place] [address] Crohn's disease of small intestine with complication Social History Tobacco Use Types Packs/Day Years [...] Exposure Response Date Recorded In the last 10 days, have yo u been in contact with someone who was confirmed or suspected to have Coronavirus/COVID-19? No / Unsure 02/08/2022 12:03 PM CDT documented as of this encounter Last Filed Vital Signs Vital Sign Reading Time Taken Comments Blood Pressure 114/69 02/08/2022 12:19 PM CDT Pulse 66 02/08/2022 12:19 PM CDT Temperature 36.7 ??C (98.1 ??F) 02/08/2022 1 2:19 PM CDT Respiratory Rate - - Oxygen Saturation 98% 02/08/2022 12: 19 PM CDT Inhaled Oxygen Concentration - - Weight 113.1 kg (249 lb 6.4 oz) 022 12:19 PM CDT Height 162.6 cm (5' 4 ) 02/08/2022 12:1 9 PM CDT Body Mass Index 42.81 02/08/2022 12:19 PM CDT documented in this encounter Progress Notes * Shreya Platt MD - 02/08/2022 12:00 PM CDT [facility] Inflammatory Bowel Disease Clinic Shreya Platt MD Chief Complaint Patient presents with ??? Follow Up Pennie Aguila is a 21 y.o. female with hx of migraines and crohn's ileitis. She presents today for follow up care in the IBD clinic. I last saw her 04/2021. She has had 4 infliximab infusions. Next is scheduled 02/16/22. Today, her main issue is worse lower abdominal pain. She reports having transvaginal US at local MOTTLE LAY UP OPERATOR. She was given diazepam for two 14 day sessions. This resolved the pain but it recurred after therapy completion. She is starting PT for pelvic floor next week. Having anywhere from 1-6 BMs daily with varying consistency. Denies blood or mucous, no vomiting. Reports daily bloating and nausea and some pain with defecation. Does not always feel completely evacuated. GERD is taking pantoprazole with some relief but is still having some symptoms of acid in her esophagus with some chest pain. GI Hx: Ileitis . Colon was normal with normal colon biopsy. EGD showed mild gastritis no hpylori. [id number] daily. 10/2021 - started infliximab 12/2021 - ifx level 23, no ab. CRP 49 Sister has crohn's and I see her as well. She takes entyvio. (failed remicade and stelara) I have reviewed outside records today as part of this visit from [facility] Past Medical History: I updated the electronic medical records of any updates in patients medical, social, and family hx. Past Medical History: Diagnosis Date ??? Crohn's disease ??? GERD (gastroesophageal reflux disease) 03/31/2021 ??? Inflammatory bowel disease 03/31/2021 Past Surgical History: Procedure Laterality Date ??? HX COLONOSCOPY 03/31/2021 ??? HX UPPER ENDOSCOPY 03/31/2021 Family History Problem Relation Name Age of Onset ??? Crohn's Disease Sister Nae Aguila ??? Inflammatory Bowel Disease Sister Nae Aguila ??? Cancer Maternal Uncle Kavon Foreshee Pancreatic/ Bile duct ??? Diabetes Paternal Uncle Pedro Aguila Social History Socioeconomic History ??? Marital status: Single Spouse name: Not on file ??? Number of children: Not on file ??? Years of education: Not on file ??? Highest education level: Not on file Occupational History ??? Not on file Tobacco Use ??? Smoking status: Never Smoker ??? Smokeless tobacco: Never Used Vaping Use ??? Vaping Use: Never used Substance and Sexual Activity ??? Alcohol use: Yes Alcohol/week: 5.0 standard drinks Types: 1 Glasses of wine, 3 Shots of liquor, 1 Standard drinks or equivalent per week ??? Drug use: Never ??? Sexual activity: Yes Partners: Male control/protection: Condom Other Topics Concern ??? Not on file Social History Narrative ??? Not on file Social Determinants of Health Financial Resource Strain: Not on file Food Insecurity: Not on file Transportation Needs: Not on file Physical Activity: Not on file Stress: Not on file Social Connections: Not on [...] headaches, dizziness, vertigo and seizures Exam: BP 114/69 Pulse 66 Temp 98.1 ??F (36.7 ??C) Ht 5' 4 (1.626 m) Wt 113.1 kg (249 lb 6.4 oz) SpO2 98% BMI 42.81 kg/m?? General appearance: normal, alert, no distress, appears stated age Eyes: conjunctivae non-injected Neck: supple, symmetrical, no adenopathy Lungs: no respiratory distress, breathing comfortably. Abdomen: soft, no masses palpable, non-tender, non-distended, bowel sounds normal Extremities: no ulcers, no edema Joints: no synovitis Skin: No rashes or lesions Neuro: Converses and ambulates appropriately Relevant Laboratories: No results for input(s): WBC, HGB, PLT, INR in the last 72 hours. No results for input(s): MCV in the last 72 hours. No results for input(s): NA, K, CL, CO2, BUN, CREATININE in the last 72 hours. No results for input(s): AST, ALT, ALKPHOS in the last 72 hours. Invalid input(s): TBILI, ALB No results for input(s): CRP in the last 72 hours. Lab Results Component Value Date WBC 6.0 12/30/2021 HGB 12.6 12/30/2021 HCT 38.6 12/30/2021 PLT 308 12/30/2021 MCV 82.8 12/30/2021 Lab Results Component Value Date NA 139 12/30/2021 K 4.4 12/30/2021 CL 104 12/30/2021 CO2 28 12/30/2021 CA 9.0 12/30/2021 BUN 13 12/30/2021 CREAT 0.67 12/30/2021 GLUCOSE 96 12/30/2021 TOTALPROTEIN 7.3 12/30/2021 ALBUMIN 4.2 12/30/2021 BILITOTAL 0.3 12/30/2021 ALKPHOS 73 12/30/2021 AST 14 12/30/2021 ALT 19 12/30/2021 BCRATIO NOT APPLICABLE 12/30/2021 Last Endoscopies: Last Imaging: MRE 05/2021 1. Active inflammation involving an approximately 12 cm segment of terminal ileum without evidence of bowel obstruction, intra-abdominal abscess formation, or enteric fistula. CT 12/24/20 - CT with contrast. Mild diffuse mesenteric lymphadenopathy, most likely reactive. Assessment: Pennie Aguila is a 21 y.o. with hx of recent dx crohn's here for follow up. 1. Ileal crohn's - on infliximab since 10/2021. No response so far, and we have empirically increased to q 4 week dosing. She has significant worse abdominal pain now. Will get CT enterography stat. 2. Severe new pelvic pain - concern for abscess. Needs Stat imaging. 3. Gastritis on EGD -h.pylori was negative. She is on protonix 40mg daily which has helped. 4. High risk medication use requiring close monitoring,infliximab- Quant gold and HbSag, core neg, 04/13/2021 normal. Repeat labs q3 months. 5. Health Maint in IBD patient a. Needs Hepatitis B vaccination. b. Needs flu shot c. Needs Pneumovax. d. J&J covid vaccine November [address]: [address] enterography [place] 2. Continue infliximab q4 weeks. 3. Return to clinic in 6 weeks with ARSENIO Gardner and with me in 3-4 months. On the day of the visit, I spent 40 minutes providing care to this patient including chart review, review of outside records, obtaining history from patient and their family, performing a medically appropriate examination, counseling and educating the patient/family/caregiver, ordering medications, tests, or procedures, and documenting clinical information in the medical record. Shreya Platt MD [facility] Gastroenterology and Inflammatory Bowel Disease CC: Ciera Saucedo FNP Orders Placed This Encounter ??? CT ENTEROGRAPHY W CONTRAST ??? AMB REFERRAL TO DIVISION ROAD SUPERVISOR ??? cyclobenzaprine (FLEXERIL) 10 mg tablet Current Outpatient Medications: ??? pantoprazole (PROTONIX) 20 mg Tablet, Delayed Release (E.C.), Take 40 mg by mouth daily., Disp:, Rfl: ??? cyclobenzaprine (FLEXERIL) 10 mg tablet, Take 10 mg by mouth daily., Disp: , Rfl: documented in this encounter Miscellaneous Notes * Patient Instructions - Shreya Platt MD - 02/08/2022 12:51 PM CDT Thank you for entrusting your healthcare to the physicians at [facility] Inflammatory Bowel Disease and Gastroenterology Following your visit, you may receive a survey via email or [facility]mercy. Dr. Platt encourages you to respond to this confidential survey about your care. If you received excellent care, Dr. Plattwould appreciate your evaluation. Your feedback helps us to provide quality service at every visit.Thank you for your help in making our practice meet the highest expectations! [facility] Inflammatory Bowel Disease and Gastroenterology Center If you have IBD, this is the preferred office to contact. [facility] [place] [address] Other important numbers to add to our contact info: After hours physician exchange: [phone] or MRI: Call [phone] To schedule an EGD/Colon/Flex Sig: Call [phone] IMPORTANT: The following information and instructions are from your visit today: 1. Schedule CT enterography [place]. [facility] Central Scheduling [phone] 2. Continue infliximab q4 weeks. 1. Return to clinic in 6 weeks with peggy and with in 3-4 months. Shreya Platt MD documented in this encounter Plan of Treatment Upcoming Encounters Date Type Department Care Team (Late st Contact Info) Description 09/22/2024 8:00 AM SPEAKING UNIT ASSEMBLER Office Visit [facility] IBD and Gastroenterology Center [place] [address] [place] [address] Shreya Platt MD [address] [place] [address] Scheduled Referrals Name Type Priority Associated Diagnoses Orde r Schedule AMB REFERRAL TO DIVISION ROAD SUPERVISOR Outpatient Referral Routine Crohn's disease of small intestine with complication Ordered: 02/08/2022 documented as of this encounter Results * CT ENTEROGRAPHY W CONTRAST (02/17/2022 11:07 AM CDT) Anatomical Region Laterality Modality Chest Computed Tomogra phy 02/17/2022 11:2 6 AM CDT Impressions 02/17/2022 12:25 PM CDT IMPRESSION: ?? Unremarkable examination. No evidence of active bowel inflammation. DICTATION LOCATION: Location 2 - [facility] 02/17/2022 12:[address] ENTEROGRAPHY W CONTRAST DATE: 02/17/2022 11:07 AM CLINICAL INFORMATION: Crohn's exacerbation COMPARISON: MRI enterography 06/15/2021 PROCEDURE: Axial images were obtained from the lung bases through the ischial tuberosities following the administration of intravenous contrast. Negative oral contrast was administered. Multiplanar reformatted images were reviewed. The examination was performed with the adjustment of mA according to the patient size and/or the use of Iterative Reconstruction Technique. ?? FINDINGS: ?? LOWER CHEST: Within normal limits. ?? LIVER: Within normal limits ?? GALLBLADDER: Within normal limits. ?? BILE DUCTS: Within normal limits. ?? PANCREAS: Within normal limits. ?? SPLEEN: Within normal limits. ?? ADRENALS: Within normal limits. ?? KIDNEYS/URETERS: Within normal limits. ?? BLADDER: Within normal limits. ?? REPRODUCTIVE ORGANS: Within normal limits. ?? BOWEL/MESENTERY: No small or large bowel obstruction, wall thickening, stricture, or abnormal enhancement. Previously imaged terminal ileal inflammation demonstrates interval resolution. ?? PERITONEUM/RETROPERITONEUM: No ascites, free air or significant lymphadenopathy. ?? VESSELS: Within normal limits. ?? ABDOMINAL WALL: Within normal limits. ?? BONES: Within normal limits. ?? Procedure Note Brown Worthington MD - 02/17/2022 CT ENTEROGRAPHY W CONTRAST DATE: 02/17/2022 11:07 AM CLINICAL INFORMATION: Crohn's exacerbation COMPARISON: MRI enterography 06/15/2021 PROCEDURE: Axial images were obtained from the lung bases through the ischial tuberosities following the administration of intravenous contrast. Negative oral contrast was administered. Multiplanar reformatted images were reviewed. The examination was performed with the adjustment of mA according to the patient size and/or the use of Iterative Reconstruction Technique. FINDINGS: LOWER CHEST: Within normal limits. LIVER: Within normal limits GALLBLADDER: Within normal limits. BILE DUCTS: Within normal limits. PANCREAS: Within normal limits. SPLEEN: Within normal limits. ADRENALS: Within normal limits. KIDNEYS/URETERS: Within normal limits. BLADDER: Within normal limits. REPRODUCTIVE ORGANS: Within normal limits. BOWEL/MESENTERY: No small or large bowel obstruction, wall thickening, stricture, or abnormal enhancement. Previously imaged terminal ileal inflammation demonstrates interval resolution. PERITONEUM/RETROPERITONEUM: No ascites, free air or significant lymphadenopathy. VESSELS: Within normal limits. ABDOMINAL WALL: Within normal limits. BONES: Within normal limits. IMPRESSION: Unremarkable examination. No evidence of active bowel inflammation. DICTATION LOCATION: [address] Shreya Platt MD CT ORDERABLES documented in this encounter Visit Diagnoses Diagnosis Crohn's disease of small intestine with complication Regional enteritis of small intestine Crohn's disease of small intestine with complication Regional enteritis of small intestine documented in this encounter Care Teams Prover Relationship Specialty Start Date End Date Ciera Saucedo FNP [address] [place] [address] PCP - General Nurse Practitioner Family 05/24/21 documented as of this encounter
--- OUTSIDE RECORDS SUMMARY | 2024-08-13 20:08 | XMS_ITS | Encounter Summary ---
Author Organization [facility] Address [address] [place] [address] Care Team Providers Care Food Safety Auditor Name Role Phone Ciera Saucedo BARBI Primary Care Provider [phone] Encounter Details Date Type Department Care Team (Late Contact Info) Description 09/16/2021 Chart Note [facility] Gastroenterology [place] [id number] [facility] [address] [place] [address] Emerald Valdez Social History Tobacco Use Types Packs/Day Years Used Date Smoking Tobacco: Never Alcohol Use Standard Drinks/Week Comments Yes 0 (1 standard drink = 0.6 oz pur e alcohol) Sex and Gender Information Value Date Recorded Sex Assigned at Female 04/18/2023 4:58 PM CDT Gender Identity Female 04/18/2023 4:58 PM CDT Sexual Orientation Not on file documented as of this encounter Progress Notes * Emerald Valdez - 09/16/2021 12:07 PM CST Patient has tried and failed Prednisone in June TY MANAGER documented in this encounter Plan of Treatment Upcoming Encounters Date Type Department Care Team (Late Contact Info) Description 09/22/2024 8:00 AM SAFETY MANAGER Office Visit [facility] IBD and Gastroenterology [facility] [address] [place] [address] Shreya Platt MD [address] [place] [address] documented as of this encounter Visit Diagnoses Not on filedocumented in this encounter Care Teams Food Safety Auditor Relationship Specialty Start Date End Date Ciera Saucedo FNP [address] [place] [address] PCP - General Nurse Practitioner Family 05/24/21 documented as of this encounter
--- OUTSIDE RECORDS SUMMARY | 2024-08-13 20:08 | XMS_ITS | Encounter Summary ---
Author Organization [facility] Address [address] [place] [address] Care Team Providers Care Flooring Machine Feeder Name Role Phone Ciera Saucedo Primary Care Provider Encounter Details Date Type Department Care Team (Late Contact Info) Description 10/11/2021 Abstract [facility] Gastroenterology [facility] [address] [facility] [address] [place] [address] Emerald Valdez Social History Tobacco Use Types [...] (Late Contact Info) Description 09/22/2024 8:00 AM SENIOR ANDROID DEVELOPER Office Visit [facility] IBD and Gastroenterology [facility] [address] [facility] [address] [place] [address] Shreya Platt MD [address] [facility] [address] [place] [address] documented as of this encounter Visit Diagnoses Not on filedocumented in this encounter Care Teams Flooring Machine Feeder Relationship Specialty Start Date End Date Ciera Saucedo FNP [address] [place] [id number] PCP - General Nurse Practitioner Family 05/24/21 documented as of this encounter
--- OUTSIDE RECORDS SUMMARY | 2024-08-13 20:08 | XMS_ITS | Encounter Summary ---
Author Organization [facility] Address [address] [place] [address] Care Team Providers Care Angle Shearer Name Role Phone Ciera Saucedo BARBI Primary Care Provider [phone] Reason for Visit * Reason Comments Follow Up Crohn's Encounter Details Date Type Department Care Team (Latest Contact Info) Description 07/05/2022 9:20 AM POLICE COMMISSIONER Office Visit [facility] IBD and Gastroenterology Center [address] [address] Shreya Platt MD [address] [facility] [address] [place] [address] Crohn's disease of small intestine [...] suspected to have Coronavirus/COVID-19? No / Unsure 07/05/2022 9:47 AM POLICE COMMISSIONER documented as of this encounter Last Filed Vital Signs Vital Sign Reading Time Taken Comments Blood Pressure 120/73 07/05/2022 10:11 AM POLICE COMMISSIONER Pulse 83 07/05/2022 10:11 AM POLICE COMMISSIONER Temperature 36.9 ??C (98.5 ??F) 07/05/2022 10:[address] Respiratory Rate - - Oxygen Saturation 95% 07/05/2022 10:11 AM POLICE COMMISSIONER Inhaled Oxygen Concentration - - Weight 109.8 kg (242 lb) 07/05/2022 10:11 AM POLICE COMMISSIONER Height 162.6 cm (5' 4 ) 07/05/2022 10:11 AM POLICE COMMISSIONER Body Mass Index 41.54 07/05/2022 10:11 AM POLICE COMMISSIONER documented in this encounter Progress Notes * Shreya Platt MD - 07/05/2022 9:20 AM CST [facility] Shreya Platt MD Chief Complaint Patient presents with Follow Up Crohn's Pennie Aguila is a 21 y.o. female with hx of migraines and crohn's ileitis. She presents today for follow up. She is currently 10 weeks today. She did not get the CT scan since last visit as she became . She has had some significant morning sickness for which she takes Zofran and Protonix 40 mg twice a day. This improves throughout the day. She continues to have fairly significant right lower quadrant pain this comes and goes but when it does come it can be debilitating, upto 8 out of 10. It is not associated with change of bowels or food. Nothing makes it better. It hurts her to bend over and sometimes walk. No blood in the stool she has gained weight appropriately. She is seeing general OB, and was told initially that there was some hesitation about whether she would continue the infliximab or not. She has continued this after communicating with me. Her rash is completely resolved. She is having 1-2 bowel movements per day. She has mild intermittent GERD. She is taking Protonix twice a day. She has not needed the Pepcid since last visit but has it in case her symptoms should worsen. I have personally reviewed patient's last EGD/Colonoscopy and looked at her CT scan. GI Hx: Ileitis . Colon was normal with normal colon biopsy. EGD showed mild gastritis no hpylori. [id number] daily. 10/2021 - started infliximab 12/2021 - ifx level 23, no ab. CRP 49 01/2022 - CTE normal. Sister has crohn's and I see her as well. She takes entyvio. (failed remicade and stelara) I have reviewed outside records today as part of this visit from [facility] Past Medical History: I updated [...] used Substance and Sexual Activity Alcohol use: Yes Alcohol/week: 5.0 standard drinks Types: 1 Glasses of wine, 3 Shots of liquor, 1 Standard drinks or equivalent per week Drug use: Never Sexual activity: Yes Partners: Male control/protection: Condom [...] headaches, dizziness, vertigo and seizures Exam: BP 120/73 Pulse 83 Temp 98.5 ??F (36.9 ??C) (Temporal) Ht 5' 4 (1.626 m) Wt 109.8 kg (242 lb) SpO2 95% BMI 41.54 kg/m?? General appearance: normal, alert, no distress, [...] hours. Lab Results Component Value Date WBC 5.8 04/12/2022 HGB 12.6 04/12/2022 HCT 37.9 04/12/2022 PLT 265 04/12/2022 MCV 85.4 04/12/2022 Lab Results Component Value Date NA 138 04/12/2022 K 4.0 04/12/2022 CL 103 04/12/2022 CO2 26 04/12/2022 CA 9.0 04/12/2022 BUN 8 04/12/2022 CREAT 0.67 04/12/2022 GLUCOSE 82 04/12/2022 TOTALPROTEIN 6.9 04/12/2022 ALBUMIN 4.0 04/12/2022 BILITOTAL 0.2 04/12/2022 ALKPHOS 76 04/12/2022 AST 13 04/12/2022 ALT 18 04/12/2022 BCRATIO NOT APPLICABLE 04/12/2022 Last Endoscopies: Last Imaging: CT Enterography 01/2022 Unremarkable examination. No evidence of active bowel inflammation. MRE 05/2021 1. Active inflammation involving an approximately 12 cm segment of terminal ileum without evidence of bowel obstruction, intra-abdominal abscess formation, or enteric fistula. CT 12/24/20 - CT with contrast. Mild diffuse mesenteric lymphadenopathy, most likely reactive. Assessment: Pennie Aguila is a 21 y.o. with ileal crohn's here for follow up. Ileal crohn's - on infliximab since 10/2021. She continues to have RLQ pain and bloating despite normal CTE 01/2022, CRP 4.9 and infliximab level 23.5. Given her worse abdominal pain, we were planning a CT but she became . She continues to have severe RLQ pain, so will get ultrasound Severe RLQ Pain - will get ultrasound. This was present pre- 10week IUP - seeing general OB. We discussed the need to continue infliximab through , andwill talk about last dose when it becomes closer to term. I recommend all IBD patients on Biologicssee high school librarian, and she will talk to her OB about this. We also discussed that her baby should not get live vaccines for the first year. Morbid obesity - BMI 42.74 High risk medication use requiring close monitoring,infliximab- Quant gold and HbSag, core neg, 04/13/2021 normal. Repeat labs q3 months. Health Maint in IBD patient Covid Vaccine with Booster - Complete November 2020 without booster Need Hepatitis B vaccination series Pneumonia vaccines due Flu Shot - due later this Fall Shingrix vaccine - will discuss at next visit Annual skin checks discussed Continue seeing OBGYN Recommendations: Continue Protonix 40mg twice daily. Get abdominal ultrasound. Continue infliximab Return to clinic 3-4months Shreya Platt MD [facility] Gastroenterology and Inflammatory Bowel Disease CC: Ciera Saucedo FNP Orders Placed This Encounter US ABDOMEN COMPLETE Current Outpatient Medications: pantoprazole (PROTONIX) 40 mg Tablet, Delayed Release (E.C.), Take 1 Tablet (40 mg) by mouth daily., Disp: 90 Tablet, Rfl: 2 pantoprazole (PROTONIX) 40 mg Tablet, Delayed Release (E.C.), Take 80 mg by mouth daily., Disp: , Rfl: hyoscyamine 0.125 mg Tablet, Sublingual, Place 1 Tablet (0.125 mg) under tongue every 4 hours as needed for Spasm., Disp: 120 Tablet, Rfl: 1 famotidine (PEPCID) 40 mg tablet, Take 1 Tablet (40 mg) by mouth 2 times daily., Disp: 180 Tablet, Rfl: 1 cyclobenzaprine (FLEXERIL) 10 mg tablet, Take 10 mg by mouth daily., Disp: , Rfl: CE COMMISSIONER documented in this encounter Miscellaneous Notes * Patient Instructions - Shreya Platt MD - 07/05/2022 10:30 AM POLICE COMMISSIONER Thank you for entrusting your healthcare to the physicians at [facility] Inflammatory Bowel Disease and Gastroenterology Following your visit, you may receive a survey via email or [employer]. Dr. Platt encourages you to respond to this confidential survey about your care. If you received excellent care, Dr. Plattwould appreciate your evaluation. Your feedback helps us to provide quality service at every visit.Thank you for your help in making our practice meet the highest expectations! [facility] Inflammatory Bowel Disease and Gastroenterology Center If you have IBD, this is the preferred office to contact. [facility] [address] [place] [address] Other important numbers to add to our contact info: After hours physician exchange: [phone] or MRI: Call [phone] To schedule an EGD/Colon/Flex Sig: Call [phone] IMPORTANT: The following information and instructions are from your visit today: Protonix 40mg twice daily. Get abdominal ultrasound. Continue infliximab Return to clinic 3-4months Shreya Platt MD CE COMMISSIONER documented in this encounter Plan of Treatment Upcoming Encounters Date Type Department Care Team (Late st Contact Info) Description 09/22/2024 8:00 AM POLICE COMMISSIONER Office Visit [facility] IBD and Gastroenterology Center [place] [address] [place] [address] Shreya Platt MD [address] [place] [address] documented as of this encounter Visit Diagnoses Diagnosis Crohn's disease of small intestine with complication- Primary Regional enteritis of small intestine documented in this encounter Care Teams Angle Shearer Relationship Specialty Start Date End Date Ciera Saucedo FNP [address] [place] [address] PCP - General Nurse Practitioner Family 05/24/21 documented as of this encounter
--- OUTSIDE RECORDS SUMMARY | 2024-08-13 20:08 | XMS_ITS | Encounter Summary ---
Author Organization [facility] Address [address] [place] [address] Care Team Providers Care Card Placer Name Role Phone Ciera Saucedo BARBI Primary Care Provider [phone] Encounter Details Date Type Department Care Team (Late st Contact Info) Description 09/13/2021 Orders Only [facility] IBD and Gastroenterology [place] [address] [facility] [address] [place] [address] Shreya Platt MD [address] [facility] [address] [place] [address] Social History Tobacco Use Types [...] st Contact Info) Description 09/22/2024 8:00 AM LISW Office Visit [facility] IBD and Gastroenterology [facility] [address] [place] [address] Shreya Platt MD [address] [place] [address] documented as of this encounter Visit Diagnoses Not on filedocumented in this encounter Care Teams Card Placer Relationship Specialty Start Date End Date Ciera Saucedo FNP [address] [place] [address] PCP - General Nurse Practitioner Family 05/24/21 documented as of this encounter
--- OUTSIDE RECORDS SUMMARY | 2024-08-13 20:08 | XMS_ITS | Encounter Summary ---
Author Organization [facility] Address [address] [facility] Attn: [place] [address] Care Team Providers Care Scout Executive Name Role Phone Ciera Saucedo BARBI Primary Care Provider [phone] Encounter Details Date Type Department Care Team (Latest Contact Info) Description 05/05/2022 Travel Social History Tobacco Use Types Packs/Day [...] suspected to have Coronavirus/COVID-19? No / Unsure 05/05/2022 3:37 PM CDT documented as of this encounter Plan of Treatment Upcoming Encounters Date Type Department Care Team (Late st Contact Info) Description 09/22/2024 8:00 AM ROCK MASON APPRENTICE Office Visit [facility] IBD and Gastroenterology [facility] [place] [address] [place] [address] Shreya Platt MD [address] [place] [address] documented as of this encounter Visit Diagnoses Not on filedocumented in this encounter Care Teams Scout Executive Relationship Specialty Start Date End Date Ciera Saucedo FNP [address] [place] [address] PCP - General Nurse Practitioner Family 05/24/21 documented as of this encounter
--- OUTSIDE RECORDS SUMMARY | 2024-08-13 20:08 | XMS_ITS | Encounter Summary ---
Author Organization [facility] Address [address] [place] [address] Care Team Providers Care Transportation Planning Technician Name Role Phone Ciera Saucedo BARBI Primary Care Provider [phone] Reason for Visit * Reason Onset Date Comments MRI results 06/28/2021 Encounter Details Date Type Department Care Team (Late st Contact Info) Description 06/28/2021 Telephone [facility] Gastroenterology [facility] [address] [place] [address] Shreya Platt MD [address] [place] [address] [place] [address] MRI results Social History Tobacco Use Types Packs/Day Years [...] have Coronavirus / COVID-19? No / Unsure 06/15/2021 7:10 AM CDT documented as of this encounter Miscellaneous Notes * Telephone Encounter - Shreya Platt MD - 06/29/2021 2:48 PM CDT [facility] Mychart sent to patient. Shreya Platt MD * Telephone Encounter - ChandannoheminancyKaryna - 06/28/2021 2:16 PM CDT Patient calling to get her MRI results and recommendations. documented in this encounter Plan of Treatment Upcoming Encounters Date Type Department Care Team (Late st Contact Info) Description 09/22/2024 8:00 AM RESTORER LACE AND TEXTILES Office Visit [facility] IBD and Gastroenterology Center [place] [address] [place] [address] Shreya Platt MD [address] [place] [address] documented as of this encounter Visit Diagnoses Not on filedocumented in this encounter Care Teams Transportation Planning Technician Relationship Specialty Start Date End Date Ciera Saucedo FNP [address] [place] [address] PCP - General Nurse Practitioner Family 05/24/21 documented as of this encounter
--- OUTSIDE RECORDS SUMMARY | 2024-08-13 20:08 | XMS_ITS | Encounter Summary ---
Author Organization [employer] [facility] Address [address] [place] [address] Care Team Providers Care Push Connector Assembler Name Role Phone Ehsandinorah Ciera BARBI Primary Care Provider [phone] Reason for Referral * CT Scan (Urgent) - Closed Specialty Diagnoses / Procedures Referred By Carolina song Referred To Contact Radiology Diagnoses Crohn's disease of small intestine with complication Procedures CT ENTEROGRAPHY W CONTRAST Shreya Platt MD [address] [facility] [address] [place] [address] Scan [address] [place] [address] Referral ID Status Reason Start Date Expiration Date Visits Re quested Visits Authorized [id number] Closed 02/10/2022 05/12/2022 1 1 Reason for Visit * Auth/Cert Specialty Diagnoses / Procedures Referred By Carolina song Referred To Contact Radiology [facility] Scan [address] [place] [address] Referral ID Status Reason Start Date Expiration Date Visits Re quested Visits Authorized [id number] 1 1 Encounter Details Date Type Department Care Team (Latest Contact Info) Description 02/17/2022 9:42 AM CDT - 02/17/2022 11:59 PM CDT Hospital Encounter [facility] CT Scan [facility] [address] [place] [id number] Shreya Platt MD [address] [place] [address] [place] [address] Discharge Disposition: Home or Self [...] suspected to have Coronavirus/COVID-19? No / Unsure 02/17/2022 9:36 AM CDT documented as of this encounter Medications at Time of Discharge Medication Sig Dispensed Refills Start Date End Date pantoprazole (PROTONIX) 20 mg Tablet, Delayed Release (E.C.) Take 40 mg by mouth daily. 04/22/2021 03/27/2022 documented as of this encounter Progress Notes * Gay Sharp RN - 02/17/2022 10:30 AM CDT Images from the original note were not included. For any pts 50 yrs of age or older, or any one with any history of renal disease; will need a creatine/GFR results from the past [address]. Instructed pt to drink water for next 48 hrs to help flush contrast out of system. States understanding. STL IMS CT MRI Medication and Flush Protocol [facility] Approved by: [facility] - Medical Executive Committee Approval Date: 01/12/2022 ORDERS ARE ENTERED ???PER PROTOCOL?? Enter the protocol in the patient's electronic health record using smartphrase: .imagingctmriprotocol Communication Orders: o For ordered imaging procedures requiring intravenous access: ? Initiate a peripheral IV, if not already in place, and discontinue IV prior to discharge (if outpatient). ? Enter order if needed: Insert Peripheral IV o Bariatric Oral Contrast: Post-surgical bariatric patients will have markedly reduced ability to drink normal quantities of liquid. ??? Four ounces will be the maximum amount or less if the patient cannot comfortably tolerate. ??? Cancel oral contrast if patient is nauseated or vomiting. ??? Water based contrast only. Medication Orders: o Local Anesthetic for use to initiate IV ADULT ??? Lidocaine 4% (L.M.X.4) applied topically ONE TIME prior to IV catheter insertion PRN (L.M.X.4 %should be applied 15 minutes prior to procedure) PEDIATRIC ??? Lidocaine 4% (L.M.X.4) applied topically ONE TIME prior to IV catheter insertion PRN (apply 30 minutes prior to procedure) ??? Sucrose 24% (Squirts) given PO prior to IV catheter insertion (administer 1 - 2 minutes prior to procedure) OR ??? Sucrose 24% (Tootsweet; Sweet-Ease) oral solution 0.2 mL oral (apply to tongue on pacifier or clean, gloved finger), ONE TIME 2 minutes prior to painful procedure. May repeat dose x1 PRN to complete procedure. o Sodium chloride 0.9% (normal saline) flush 10 mL PRN for saline lock or medication administration. o For respiratory distress, initiate oxygen and/or increase O2 to maintain saturation greater than 90% o For all invasive procedures: obtain Lidocaine 1% for intra-procedure administration. If Lidocaine1% unavailable, may substitute Lidocaine 2%. PROCEDURE SPECIFIC CT MEDICATIONS Any exceptions to these contrast protocols must be approved by a Radiologist and documented in the EHR Progress Notes. When multiple medications are listed with the comment ???OR?? them, select the first option until challenges from product availability make this option unavailable. Cystogram (CT Pelvis): Iopamidol (Isovue 300) 61%, 50 mL, diluted with 250mL of sterile NS. Inject Isovue into 250 mL bag of NS. Clamp gonsales catheter prior to instilling solution via catheter. o Instill up to 300 mL of Isovue and NS solution into bladder via catheter, one time. CT ORAL CONTRAST PROTOCOLS FOR ADULTS ??? Use Iohexol (Omnipaque) 240 mg/mL for CT scan unless patient has a documented allergy to contrast dye. ??? If allergy present, use Barium Sulfate (EZ Paque) for procedure. o Iopamidol (Isovue 300) 300mg/ml: 30ml added to 960mL of clear liquid of patient's choice. Preferred route is oral. May use nasoenteric tube if needed. OR o Iohexol (Omnipaque) 240 mg/mL: 50ml added to 960mL of clear liquid of patient's choice. Preferredroute is oral. May use nasoenteric tube if needed. ??? Administer 900mL of the diluted Omnipaque 240, orally, one time only. o Barium Sulfate (EZ Paque /Vanilla Silq) 96% oral suspension: Preferred route is oral. May use nasoenteric tube if needed. ??? Administer 900mL of barium sulfate, orally, one time only. ??? Bariatric Patient: o Post-Surgery to 1 year- 50 mL total volume. NO carbonated liquids ? lopamidol (Isovue 300) 300 mg/mL: mixed with water. Draw 50 mL of mixed solution for patient. Preferred route is orally. May use nasoenteric tube if needed. OR ? lohexol (Omnipaque) 240 mg/mL: mixed with water. Draw 50mL of mixed solution for patient. Preferred route is orally. May use nasoenteric tube if needed. (SUBJECT TO AVAILABILITY) o After 1 year- no more than 236 mL (8oz) total volume. NO carbonated liquids. ? lopamidol (Isovue 300) 300 mg/mL: mixed with water OR ? lohexol (Omnipaque) 240 mg/mL: mixed with water (SUBJECT TO AVAILABILITY) CT ORAL CONTRAST PROTOCOLS FOR PEDIATRICS Pediatrics = up to age 18 o Pediatric Radiologist will approve of one of the following products selected for procedure. ??? Barium Sulfate (EZ Paque) 96% oral suspension: preferred route is oral. May use nasoenteric tube if needed. [place] to 3 months Administer up to 90mL of Barium sulfate, orally, one time only 4 months to 1 year old Administer up to 240mL of Barium sulfate, Orally, One Time Only 1 year old to 5 years old Administer up to 360mL of Barium sulfate, Orally, One Time Only 5 years old to 10 years old Administer up to 480mL of Barium sulfate, Orally, One Time Only Over 10 years old Administer up to 600mL of Barium sulfate, Orally, One Time Only ??? Iopamidol (Isovue 300) 300 mg/mL oral solution ? Dilute 25mL of Iohexol with 480mL of clear liquid of patient's choice. Administer the diluted solution per age as follows: Preferred route is orally. May use nasoenteric tube if needed. ? Send any remaining diluted Iohexol solution with the patient's nurse to CT Iopamidol (Isovue) 300 mg/ml oral solution age appropriate guidelines Administer 45mL of diluted Iopamidol oral solution, orally every 30 minutes x 2 doses. 1 month to 1 year old Administer 120mL of diluted Iopamidol oral solution, orally every 30 min x 2 doses. 1 year old to 5 years old Administer 180mL of diluted Iopamidol oral solution, orally every 30 min x 2 doses. 5 years old to 10 years old Administer 240mL of diluted Iopamidol oral solution, orally every 30 min x 2 doses. Over 10 years old Administer 245mL of diluted Iopamidol oral solution, orally every 30 min x 2 doses. OR Iohexol (Omnipaque) 240 mg/mL oral solution ? Dilute 25mL of Iohexol with 480mL of clear liquid of patient's choice. Administer the diluted solution per age as follows: Preferred route is orally. May use nasoenteric tube if needed. ? Send any remaining diluted Iohexol solution with the patient's nurse to CT Iohexol (Omnipaque) 240mg/ml oral solution age appropriate guidelines ? ? Administer 45mL of diluted Iohexol oral solution, orally every 30 minutes x 2 doses. ? 1 month to 1 year old ? Administer 120mL of diluted Iohexol oral solution, orally every 30 min x 2 doses. ? 1 year old to 5 years old ? Administer 180mL of Iohexol orally every 30 min x 2 doses. ? 5 years old to 10 years old ? Administer 240mL of Iohexol orally every 30 min x 2 doses. ? Over 10 years old ? Administer 250mL of Iohexol orally every 30 min x 2 doses. ? CT RECTAL CONTRAST PROTOCOLS ADULTS: o Iopamidol (Isovue) 300 mg/mL: Dilute 30mL of Isovue with 900mL of warm water in an enema bag. Administer the diluted solution rectally via gravity per patient's tolerance, up to 950mLs, one time only. OR o Iohexol (Omnipaque) 240 mg/mL: Dilute 50mL of Omnipaque with 900mL of warm water in an enema bag.Administer the diluted solution rectally via gravity per patient's tolerance, up to 950mLs, one time only. CT IV CONTRAST PROTOCOLS for ADULT ADULTS: (If patient is less than 55kg and confirm dose with radiologist) o Iopadmidol (Isovue-300): Administer 2.2mL/kg of Iopamidol 61%, intravenously, one time only. o See table below for maximum dose, unless otherwise authorized by radiologist. If exam has been completed before the entire dose has been administered, stop the injection. o Multiple doses of iodine contrast within a 24-hour period are a risk factor for TING and should beavoided if possible. Emergent or other unusual circumstances where multiple doses of contrast are required in a short interval time should prompt consideration by the referring professional and radiologist to discuss the risks and benefits of contrast media administration. o If exam not included in table below, contact radiologist for orders. Procedure Maximum Dose CT Head with Contrast Up to [address] Chest with Contrast Up to [address] Maxillofacial with Contrast Up to [address] Soft Tissue Neck with Contrast CT Chest Abdomen Pelvis with Contrast CT Chest Abdomen with Contrast CT Abdomen Pelvis with Contrast CT Pelvis with Contrast CT Angiogram Examinations (all) CT Soft Tissue Neck and Chest Abdomen Pelvis with Contrast Up to [address] Soft Tissue Neck and Chest with Contrast CT Urogram with Contrast CT IV CONTRAST PROTOCOLS for PEDIATRICS PEDIATRICS: Use weight-based dosing if patient is less than 55kg and confirm dose with radiologist. to 15 years old Administer 2.2mL/kg (to MAX of 80 mL) of Iopamidol (Isovue-300) 61%, intravenously, one time only 15 years old and older Administer 2.2mL/kg (to MAX of 150mL) of Iopamidol (Isovue-300) 61%, intravenously, one time only PROCEDURE SPECIFIC MRI MEDICATIONS: MRI ENTEROGRAPHY: GLUGACON ADMINISTRATION ADULTS: (patient 18 years or older) o Patient will receive 2 doses of Glucagon one dose 0.5mg IM administered by RN prior to the MRI exam beginning 2nd dose 0.5mg IV prior to the IV contrast being administered. (If the patient is diabetic call the radiologist to verify administration of Glucagon) PEDIATRICS: If the patient is diabetic call the radiologist to verify administration of Glucagon o Pediatric patient weighing 24.9 kg or less should have one dose of Glucagon 0.5mg IM administeredby RN prior to MRI exam beginning. o Pediatric patient weighing 25 kg or greater should have one dose of Glucagon 1 mg IM administeredby RN prior to the MRI exam beginning. MRI UROGRAM: LASIX ADMINISTRATION ADULTS: Call radiologist with any questions regarding administration of Lasix o Lasix 0.1mg per kg with a minimum dose of Lasix 5mg IV being given up to a max dose of Lasix 10mgIV being given. The Lasix should be administered by RN prior to the IV contrast being administered. ??? (Hold Lasix if: obstruction, anuria and hypersensitivity to furosemide, and electrolyte imbalance or hypotension should be corrected by RN before administering) MRI IV CONTRAST PROTOCOLS ADULTS: Multihance and Prohance can be used for most MRI scans Prohance should be used primarily. Multihance is useful in specific circumstances as directed by the radiologist or per the appropriate sections established protocols. Group I gadolinium contrast agents shall not be administered. Generally, multiple doses of gadolinium contrast should not be administered within a 24-hour period. In emergent or other unusual circumstances where this is necessary, only Group II agents should beadministered. For Liver Studies: Contact radiologist to determine use of one of the following: ??? Gadobenate Dimeglumine (Multihance) (0.1mmol/0.2mL), Administer 0.1mmol/kg = 0.2mL/kg up to MAXof 20 mL, intravenously, one time only ??? Gadoteridol (Prohance) (0.1mmol/0.2mL), Administer 0.1mmol/kg = 0.2mL/kg up to MAX of 20mL, intravenously, one time only ??? Gadoxetate (Eovist) (2.5 mmol/10mL), Administer 0.025mmol/kg = 0.1mL/kg up to MAX of 10mL, intravenously, one time only PEDIATRICS: Radiologist to determine need for contrast Term neonates up to 2 years: Gadobuterol (Gadavist) (1mmol/mL injection), Administer 0.1mmol/kg = 0.1mL/kg up to MAX of 14mmol=14mL, intravenously, one time only OR Gadobenate Dimeglumine (Multihance) (0.1mmol/mL), Administer 0.1mmol/kg = 0.1mL/kg up to MAX of 14mmol = 14mL, intravenously, one time only 2 years and older Gadobenate Dimeglumine (Multihance) (0.1mmol/0.2mL), Administer 0.1mmol/kg = 0.2mL/kg up to MAX of 20mL, intravenously, one time only OR Gadoteridol (Prohance) (0.1mmol/0.2mL), Administer 0.1mmol/kg = 0.2mL/kg up to MAX of 20mL, intravenously, one time only TABLE 1. ACR Manual Classification of Gadolinium-Based Agents Relative to Nephrogenic Systemic Fibrosis Group I: Agents associated with the greatest number of NSF cases: o Gadodiamide (Omniscan?? - [employer]) o Gadopentetate dimeglumine (Magnevist?? - [employer]) o Gadoversetamide (OptiMARK?? - Guerbet) Group II: Agents associated with few, if any, unconfounded cases of NSF: o Gadobenate dimeglumine (MultiHance?? - [employer]) o Gadobutrol (Gadavist?? - [employer]; Gadovist in many countries) o Gadoteric acid (Dotarem?? - Guerbet, Clariscan - [employer]) Gadoteridol (ProHance?? - [employer]) Group III: Agents for which data remains limited regarding NSF risk, but for which few, if any unconfounded cases of NSF have been reported: Gadoxetate disodium (Eovist - [employer]; Primovist in many countries) documented in this encounter Miscellaneous Notes * Treatment Plan - Wendie Eldridge RT - 02/17/2022 10:30 AM CDT Images from the original note were not included. STL IMS CT MRI Medication and Flush Protocol [facility] Approved by: [facility] - Medical Executive Committee Approval Date: 01/12/2022 ORDERS ARE ENTERED ???PER PROTOCOL?? Enter the protocol in the patient's electronic health record using [employer]: .imagingctmriprotocol Communication Orders: o For ordered imaging procedures requiring intravenous access: ? Initiate a peripheral IV, if not already in place, and discontinue IV prior to discharge (if outpatient). ? Enter order if needed: Insert Peripheral IV o Bariatric Oral Contrast: Post-surgical bariatric patients will have markedly reduced ability to drink normal quantities of liquid. ??? Four ounces will be the maximum amount or less if the patient cannot comfortably tolerate. ??? Cancel oral contrast if patient is nauseated or vomiting. ??? Water based contrast only. Medication Orders: o Local Anesthetic for use to initiate IV ADULT ??? Lidocaine 4% (L.M.X.4) applied topically ONE TIME prior to IV catheter insertion PRN (L.M.X.4 %should be applied 15 minutes prior to procedure) PEDIATRIC ??? Lidocaine 4% (L.M.X.4) applied topically ONE TIME prior to IV catheter insertion PRN (apply 30 minutes prior to procedure) ??? Sucrose 24% (Squirts) given PO prior to IV catheter insertion (administer 1 - 2 minutes prior to procedure) OR ??? Sucrose 24% (Tootsweet; Sweet-Ease) oral solution 0.2 mL oral (apply to tongue on pacifier or clean, gloved finger), ONE TIME 2 minutes prior to painful procedure. May repeat dose x1 PRN to complete procedure. o Sodium chloride 0.9% (normal saline) flush 10 mL PRN for saline lock or medication administration. o For respiratory distress, initiate oxygen and/or increase O2 to maintain saturation greater than 90% o For all invasive procedures: obtain Lidocaine 1% for intra-procedure administration. If Lidocaine1% unavailable, may substitute Lidocaine 2%. PROCEDURE SPECIFIC CT MEDICATIONS Any exceptions to these contrast protocols must be approved by a Radiologist and documented in the EHR Progress Notes. When multiple medications are listed with the comment ???OR?? them, select the first option until challenges from product availability make this option unavailable. Cystogram (CT Pelvis): Iopamidol (Isovue 300) 61%, 50 mL, diluted with 250mL of sterile NS. Inject Isovue into 250 mL bag of NS. Clamp gonsales catheter prior to instilling solution via catheter. o Instill up to 300 mL of Isovue and NS solution into bladder via catheter, one time. CT ORAL CONTRAST PROTOCOLS FOR ADULTS ??? Use Iohexol (Omnipaque) 240 mg/mL for CT scan unless patient has a documented allergy to contrast dye. ??? If allergy present, use Barium Sulfate (EZ Paque) for procedure. o Iopamidol (Isovue 300) 300mg/ml: 30ml added to 960mL of clear liquid of patient's choice. Preferred route is oral. May use nasoenteric tube if needed. OR o Iohexol (Omnipaque) 240 mg/mL: 50ml added to 960mL of clear liquid of patient's choice. Preferredroute is oral. May use nasoenteric tube if needed. ??? Administer 900mL of the diluted Omnipaque 240, orally, one time only. o Barium Sulfate (EZ Paque /Vanilla Silq) 96% oral suspension: Preferred route is oral. May use nasoenteric tube if needed. ??? Administer 900mL of barium sulfate, orally, one time only. ??? Bariatric Patient: o Post-Surgery to 1 year- 50 mL total volume. NO carbonated liquids ? lopamidol (Isovue 300) 300 mg/mL: mixed with water. Draw 50 mL of mixed solution for patient. Preferred route is orally. May use nasoenteric tube if needed. OR ? lohexol (Omnipaque) 240 mg/mL: mixed with water. Draw 50mL of mixed solution for patient. Preferred route is orally. May use nasoenteric tube if needed. (SUBJECT TO AVAILABILITY) o After 1 year- no more than 236 mL (8oz) total volume. NO carbonated liquids. ? lopamidol (Isovue 300) 300 mg/mL: mixed with water OR ? lohexol (Omnipaque) 240 mg/mL: mixed with water (SUBJECT TO AVAILABILITY) CT ORAL CONTRAST PROTOCOLS FOR PEDIATRICS Pediatrics = up to age 18 o Pediatric Radiologist will approve of one of the following products selected for procedure. ??? Barium Sulfate (EZ Paque) 96% oral suspension: preferred route is oral. May use nasoenteric tube if needed. to 3 months Administer up to 90mL of Barium sulfate, orally, one time only 4 months to 1 year old Administer up to 240mL of Barium sulfate, Orally, One Time Only 1 year old to 5 years old Administer up to 360mL of Barium sulfate, Orally, One Time Only 5 years old to 10 years old Administer up to 480mL of Barium sulfate, Orally, One Time Only Over 10 years old Administer up to 600mL of Barium sulfate, Orally, One Time Only ??? Iopamidol (Isovue 300) 300 mg/mL oral solution ? Dilute 25mL of Iohexol with 480mL of clear liquid of patient's choice. Administer the diluted solution per age as follows: Preferred route is orally. May use nasoenteric tube if needed. ? Send any remaining diluted Iohexol solution with the patient's nurse to CT Iopamidol (Isovue) 300 mg/ml oral solution age appropriate guidelines [place] Administer 45mL of diluted Iopamidol oral solution, orally every 30 minutes x 2 doses. 1 month to 1 year old Administer 120mL of diluted Iopamidol oral solution, orally every 30 min x 2 doses. 1 year old to 5 years old Administer 180mL of diluted Iopamidol oral solution, orally every 30 min x 2 doses. 5 years old to 10 years old Administer 240mL of diluted Iopamidol oral solution, orally every 30 min x 2 doses. Over 10 years old Administer 245mL of diluted Iopamidol oral solution, orally every 30 min x 2 doses. OR Iohexol (Omnipaque) 240 mg/mL oral solution ? Dilute 25mL of Iohexol with 480mL of clear liquid of patient's choice. Administer the diluted solution per age as follows: Preferred route is orally. May use nasoenteric tube if needed. ? Send any remaining diluted Iohexol solution with the patient's nurse to CT Iohexol (Omnipaque) 240mg/ml oral solution age appropriate guidelines ? ? Administer 45mL of diluted Iohexol oral solution, orally every 30 minutes x 2 doses. ? 1 month to 1 year old ? Administer 120mL of diluted Iohexol oral solution, orally every 30 min x 2 doses. ? 1 year old to 5 years old ? Administer 180mL of Iohexol orally every 30 min x 2 doses. ? 5 years old to 10 years old ? Administer 240mL of Iohexol orally every 30 min x 2 doses. ? Over 10 years old ? Administer 250mL of Iohexol orally every 30 min x 2 doses. ? CT RECTAL CONTRAST PROTOCOLS ADULTS: o Iopamidol (Isovue) 300 mg/mL: Dilute 30mL of Isovue with 900mL of warm water in an enema bag. Administer the diluted solution rectally via gravity per patient's tolerance, up to 950mLs, one time only. OR o Iohexol (Omnipaque) 240 mg/mL: Dilute 50mL of Omnipaque with 900mL of warm water in an enema bag.Administer the diluted solution rectally via gravity per patient's tolerance, up to 950mLs, one time only. CT IV CONTRAST PROTOCOLS for ADULT ADULTS: (If patient is less than 55kg and confirm dose with radiologist) o Iopadmidol (Isovue-300): Administer 2.2mL/kg of Iopamidol 61%, intravenously, one time only. o See table below for maximum dose, unless otherwise authorized by radiologist. If exam has been completed before the entire dose has been administered, stop the injection. o Multiple doses of iodine contrast within a 24-hour period are a risk factor for TING and should beavoided if possible. Emergent or other unusual circumstances where multiple doses of contrast are required in a short interval time should prompt consideration by the referring professional and radiologist to discuss the risks and benefits of contrast media administration. o If exam not included in table below, contact radiologist for orders. Procedure Maximum Dose CT Head with Contrast Up to [address] Chest with Contrast Up to [address] Maxillofacial with Contrast Up to [address] Soft Tissue Neck with Contrast CT Chest Abdomen Pelvis with Contrast CT Chest Abdomen with Contrast CT Abdomen Pelvis with Contrast CT Pelvis with Contrast CT Angiogram Examinations (all) CT Soft Tissue Neck and Chest Abdomen Pelvis with Contrast Up to [address] Soft Tissue Neck and Chest with Contrast CT Urogram with Contrast CT IV CONTRAST PROTOCOLS for PEDIATRICS PEDIATRICS: Use weight-based dosing if patient is less than 55kg and confirm dose with radiologist. [place] to 15 years old Administer 2.2mL/kg (to MAX of 80 mL) of Iopamidol (Isovue-300) 61%, intravenously, one time only 15 years old and older Administer 2.2mL/kg (to MAX of 150mL) of Iopamidol (Isovue-300) 61%, intravenously, one time only PROCEDURE SPECIFIC MRI MEDICATIONS: MRI ENTEROGRAPHY: GLUGACON ADMINISTRATION ADULTS: (patient 18 years or older) o Patient will receive 2 doses of Glucagon one dose 0.5mg IM administered by RN prior to the MRI exam beginning 2nd dose 0.5mg IV prior to the IV contrast being administered. (If the patient is diabetic call the radiologist to verify administration of Glucagon) PEDIATRICS: If the patient is diabetic call the radiologist to verify administration of Glucagon o Pediatric patient weighing 24.9 kg or less should have one dose of Glucagon 0.5mg IM administeredby RN prior to MRI exam beginning. o Pediatric patient weighing 25 kg or greater should have one dose of Glucagon 1 mg IM administeredby RN prior to the MRI exam beginning. MRI UROGRAM: LASIX ADMINISTRATION ADULTS: Call radiologist with any questions regarding administration of Lasix o Lasix 0.1mg per kg with a minimum dose of Lasix 5mg IV being given up to a max dose of Lasix 10mgIV being given. The Lasix should be administered by RN prior to the IV contrast being administered. ??? (Hold Lasix if: obstruction, anuria and hypersensitivity to furosemide, and electrolyte imbalance or hypotension should be corrected by RN before administering) MRI IV CONTRAST PROTOCOLS ADULTS: Multihance and Prohance can be used for most MRI scans Prohance should be used primarily. Multihance is useful in specific circumstances as directed by the radiologist or per the appropriate sections established protocols. Group I gadolinium contrast agents shall not be administered. Generally, multiple doses of gadolinium contrast should not be administered within a 24-hour period. In emergent or other unusual circumstances where this is necessary, only Group II agents should beadministered. For Liver Studies: Contact radiologist to determine use of one of the following: ??? Gadobenate Dimeglumine (Multihance) (0.1mmol/0.2mL), Administer 0.1mmol/kg = 0.2mL/kg up to MAXof 20 mL, intravenously, one time only ??? Gadoteridol (Prohance) (0.1mmol/0.2mL), Administer 0.1mmol/kg = 0.2mL/kg up to MAX of 20mL, intravenously, one time only ??? Gadoxetate (Eovist) (2.5 mmol/10mL), Administer 0.025mmol/kg = 0.1mL/kg up to MAX of 10mL, intravenously, one time only PEDIATRICS: Radiologist to determine need for contrast Term neonates up to 2 years: Gadobuterol (Gadavist) (1mmol/mL injection), Administer 0.1mmol/kg = 0.1mL/kg up to MAX of 14mmol=14mL, intravenously, one time only OR Gadobenate Dimeglumine (Multihance) (0.1mmol/mL), Administer 0.1mmol/kg = 0.1mL/kg up to MAX of 14mmol = 14mL, intravenously, one time only 2 years and older Gadobenate Dimeglumine (Multihance) (0.1mmol/0.2mL), Administer 0.1mmol/kg = 0.2mL/kg up to MAX of 20mL, intravenously, one time only OR Gadoteridol (Prohance) (0.1mmol/0.2mL), Administer 0.1mmol/kg = 0.2mL/kg up to MAX of 20mL, intravenously, one time only TABLE 1. ACR Manual Classification of Gadolinium-Based Agents Relative to Nephrogenic Systemic Fibrosis Group I: Agents associated with the greatest number of NSF cases: o Gadodiamide (Omniscan?? - [employer]) o Gadopentetate dimeglumine (Magnevist?? - [employer]) o Gadoversetamide (OptiMARK?? - Guerbet) Group II: Agents associated with few, if any, unconfounded cases of NSF: o Gadobenate dimeglumine (MultiHance?? - [employer]) o Gadobutrol (Gadavist?? - [employer]; Gadovist in many countries) o Gadoteric acid (Dotarem?? - Guerbet, Clariscan - Puzzlium) Gadoteridol (ProHance?? - [employer]) Group III: Agents for which data remains limited regarding NSF risk, but for which few, if any unconfounded cases of NSF have been reported: Gadoxetate disodium (Eovist - [employer]; Primovist in many countries) * Result Encounter Note - Kendra Brody ANP - 02/17/2022 10:30 AM CDT [place], Your CTE result is normal. This is great news! Please keep your appointments with pelvic floor therapy and to see me 03/27/22. Let us know if you have increased pain prior to then. Thanks! DARNELL Manzano documented in this encounter Plan of Treatment Upcoming Encounters Date Type Department Care Team (Late st Contact Info) Description 09/22/2024 8:00 AM CEO [place] Office Visit [facility] [place] [address] [place] [address] Shreya Platt MD [address] [place] [address] documented as of this encounter Procedures Procedure Name Priority Date/Time Associated Diagnosis Comments CT ENTEROGRAPHY W CONTRAST Stat 02/17/2022 11:07 AM CDT Crohn's disease of small intestine with complication documented in this encounter Results * CT ENTEROGRAPHY W CONTRAST (02/17/2022 11:07 AM CDT) Anatomical Region Laterality Modality Chest Computed Tomogra phy 02/17/2022 11:2 6 AM CDT Impressions 02/17/2022 12:25 PM CDT IMPRESSION: ?? Unremarkable examination. No evidence of active bowel inflammation. DICTATION LOCATION: Location 2 [facility] Narrative 02/17/2022 12:[address] ENTEROGRAPHY W [...] evidence of active bowel inflammation. DICTATION LOCATION: [address] Shreya Platt MD CT ORDERABLES documented in this encounter Visit Diagnoses Diagnosis Crohn's disease of small intestine with complication Regional enteritis of small intestine documented in this encounter Administered Medications Inactive Administered Medications - up to 3 most recent administrations Medication Order MAR Action Action Date Dose Rate Site iopamidoL (ISOVUE-300) 61% injection (drawn from multi-use bulk pack) 100 mL 100 mL, IV, INTRA-PROCEDURE ONCE, 1 dose, Starting on Sun02/17/22 at 1018, Until Sun02/17/22 at 1107, Routine Contrast Given 02/17/2022 11:07 AM CDT 100 mL sodium chloride flush injection 0-20 mL 0-20 mL, IV, SEE ADMIN INSTRUCTIONS, Starting on Sun02/17/22 at 1000, Until Sun02/17/22 at 1359, Routine Given 02/17/2022 10:11 AM CDT 10 mL sodium chloride flush injection 10 mL 10 mL, IV, ONE TIME ONLY, 1 dose, On Sun02/17/22 at 1030, Routine Given 02/17/2022 11:07 AM CDT 10 mL documented in this encounter Care Teams Push Connector Assembler Relationship Specialty Start Date End Date Ciera Saucedo FNP [address] [place] [address] PCP - General Nurse Practitioner Family 05/24/21 documented as of this encounter
--- OUTSIDE RECORDS SUMMARY | 2024-08-13 20:08 | XMS_ITS | Encounter Summary ---
Author Organization [facility] Address [address] [place] [address] Care Team Providers Care Blue Leather Setter Name Role Phone EhsandinorahÁngela BARBI Primary Care Provider [phone] Reason for Referral * Outpatient Services (Routine) - Closed Specialty Diagnoses / Procedures Referred By Contkarthikeyan t Referred To Contact Gastroenterology Diagnoses Crohn's disease of small intestine with complication Procedures INFUSION THERAPY Shreya Platt MD [address] [facility] 100 [place] [address] [facility] [address] Referral ID Status Reason Start Date Expiration Date Visits Re quested Visits Authorized [id number] Closed 02/08/2022 03/11/2023 1 1 Reason for Visit * Reason Onset Date Comments [facility] Premed orders 02/08/2022 Encounter Details Date Type Department Care Team (Late st Contact Info) Description 02/08/2022 Telephone [facility] [address] [facility] [address] [place] [address] Shreya Platt MD [address] [facility] [address] [place] [address] [facility] Premed orders Social History Tobacco Use Types Packs/Day Years [...] PM CDT documented as of this encounter Miscellaneous Notes * Addendum Note - Manuelito England RN - 02/08/2022 3:15 PM CDTAddended by: MANUELITO ENGLAND on: 02/08/2022 03:15 PM Modules accepted: Orders * Telephone Encounter - Manuelito England RN - 02/08/2022 3:12 PM CDT [facility] [phone] * Telephone Encounter - Manuelito England RN - 02/08/2022 2:49 PM CDT [facility] Home Services ph# [phone] Called [facility] to update premed orders to reflect Tylenol 1000mg PO as needed, Claritin 10mg PO as needed, Benadryl 25mg PO as needed. No answer, LVM requesting CB. documented in this encounter Plan of Treatment Upcoming Encounters Date Type Department Care Team (Late st Contact Info) Description 09/22/2024 8:00 AM CIVIL RIGHTS REPRESENTATIVE Office Visit [facility] [place] [address] [place] [address] Shreya Platt MD [address] [place] [address] documented as of this encounter Visit Diagnoses Diagnosis Crohn's disease of small intestine with complication- Primary Regional enteritis of small intestine documented in this encounter Care Teams Blue Leather Setter Relationship Specialty Start Date End Date Ciera Suacedo FNP [address] [place] [address] PCP - General Nurse Practitioner Family 05/24/21 documented as of this encounter
--- OUTSIDE RECORDS SUMMARY | 2024-08-13 20:08 | XMS_ITS | Encounter Summary ---
Author Organization [facility] Address [address] [place] [address] Care Team Providers Care Car Whacker Name Role Phone Ciera Saucedo BARBI Primary Care Provider [phone] Encounter Details Date Type Department Care Team (Latest Contact Info) Description 10/21/1999 Outpatient Historical [facility] Giovanni Borden MD [address] [place] [address] Stenosis of nasolacrimal duct, acquired (Primary Dx) Social History Tobacco Use Types Packs/Day Years Used Date Smoking Tobacco: Never Assessed Sex and Gender Information Value Date Recorded Sex Assigned at Female 04/18/2023 4:58 PM CDT Gender Identity Female 04/18/2023 4:58 PM CDT Sexual Orientation Not on file documented as of this encounter Plan of Treatment Upcoming Encounters Date Type Department Care Team (Late st Contact Info) Description 09/22/2024 8:00 AM SHAREPOINT APPLICATION DEVELOPER Office Visit [facility] Gastro[facility] [place] [address] [place] [address] Shreya Platt MD [address] [place] [address] documented as of this encounter Visit Diagnoses Diagnosis Stenosis of nasolacrimal duct, acquired- Primary documented in this encounter Additional Health Concerns Infection Onset Date Last Indicated Resolved Time R/O C. diff 01/05/2022 01/04/2022 01/05/2022 1:51 PM CDT documented as of this encounter Care Teams Car Whacker Relationship Specialty Start Date End Date Ciera Saucedo FNP [address] [place] [address] PCP - General Nurse Practitioner Family 05/24/21 documented as of this encounter
--- OUTSIDE RECORDS SUMMARY | 2024-08-13 20:08 | XMS_ITS | Encounter Summary ---
Author Organization [facility] Address [address] [place] [address] Care Team Providers Care Government Affairs Director Name Role Phone Ciera Saucedo BARBI Primary Care Provider [phone] Encounter Details Date Type Department Care Team (Late Contact Info) Description 06/08/2022 Abstract [facility] [address] [facility] [address] [place] [address] Viki Rosales MD [address] [facility] [address] [place] [address] Social History Tobacco Use Types Packs/Day Years [...] suspected to have Coronavirus/COVID-19? No / Unsure 05/22/2022 8:00 PM CDT documented as of this encounter Plan of Treatment Upcoming Encounters Date Type Department Care Team (Late Contact Info) Description 09/22/2024 8:00 AM COMMUNITY HEALTH NURSING DIRECTOR Office Visit [facility] [address] [facility] [address] [place] [address] Shreya Platt MD [address] [place] [address] documented as of this encounter Visit Diagnoses Not on filedocumented in this encounter Care Teams Government Affairs Director Relationship Specialty Start Date End Date Ciera Saucedo FNP [address] [place] [address] PCP - General Nurse Practitioner Family 05/24/21 documented as of this encounter
--- OUTSIDE RECORDS SUMMARY | 2024-08-13 20:08 | XMS_ITS | Encounter Summary ---
Author Organization [facility] Address [address] [place] [address] Care Team Providers Care Director Enterprise Data Architecture Name Role Phone Ciera Saucedo BARBI Primary Care Provider Reason for Visit * Reason Onset Date Comments Conflict with pt a nd Abd scan 07/26/2022 Tech from [facility] ([phone]) contacted clinic> She talked to pt regarding scan for RUQ and RLQ this Sunday at 11:15am. Pt is 13 weeks . Tech states RLQ scan can not be done since she is . Would need to be referred to Lab for RLQ testing. Please call her back with additional instructions. Encounter Details Date Type Department Care Team (Late st Contact Info) Description 07/26/2022 Telephone [facility] [address] [address] Shreya Platt MD [address] [facility] 100 [place] [address] Conflict with pt and Abd scan (Tech from [facility] ([phone]) contacted clinic> She talked to pt regarding scan for RUQ and RLQ this Sunday at 11:15am. Pt is 13 weeks . Tech states RLQ scan can not be done since she is . Would need to be referred to Lab for RLQ testing. Please call her back with additional instructions.) Social History Tobacco Use Types Packs/Day Years [...] suspected to have Coronavirus/COVID-19? No / Unsure 07/26/2022 5:13 PM ASPHALT COATER documented as of this encounter Miscellaneous Notes * Addendum Note - Anne Marie Pike - 08/01/2022 12:31 PM CSTAddended by: ANNE MARIE PIKE on: 08/01/2022 12:31 PM Modules accepted: Orders ALT COATER * Telephone Encounter - Anne Marie Pike - 08/01/2022 12:29 PM CST Called patient and went over Dr Platt's response. Patient states her pain is in the lower area,pelvic area so is not sure if the RUQ would be worth doing. She is 14 weeks ALT COATER * Telephone Encounter - Anne Marie Pike - 08/01/2022 12:29 PM CST Images from the original note were not included. Shreya Platt MD You 4 days ago She can just get the RUQ scan for now. Shreya Méndez ALT COATER * Telephone Encounter - Barbra Caba RN - 07/26/2022 2:18 PM CST Love from [facility] ([phone]) contacted clinic> She talked to pt regarding scan for RUQ and RLQ this Sunday at 11:15am. Pt is 13 weeks . Tech states RLQ scan can not be done since she is . Would need to be referred to Lab for RLQ testing. Please call her back with additional instructions. ALT COATER documented in this encounter Plan of Treatment Upcoming Encounters Date Type Department Care Team (Late st Contact Info) Description 09/22/2024 8:00 AM ASPHALT COATER Office Visit [facility] [place] [address] [place] [address] Shreya Platt MD [address] [place] [address] documented as of this encounter Visit Diagnoses Diagnosis Crohn's disease of small intestine with complication- Primary Regional enteritis of small intestine documented in this encounter Care Teams Director Enterprise Data Architecture Relationship Specialty Start Date End Date Ciera Saucedo FNP [address] [place] [address] PCP - General Nurse Practitioner Family 05/24/21 documented as of this encounter
--- OUTSIDE RECORDS SUMMARY | 2024-08-13 20:08 | XMS_ITS | Encounter Summary ---
Author Organization [facility] Address [address] [facility] Attn: [place] [address] Care Team Providers Care Surveyor Instrument Assistant Name Role Phone Ciera Saucedo BARBI Primary Care Provider [phone] Encounter Details Date Type Department Care Team (Latest Contact Info) Description 02/17/2022 Travel Social History Tobacco Use Types Packs/Day [...] st Contact Info) Description 09/22/2024 8:00 AM EXTRUSION SUPERVISOR Office Visit [facility]astroenterology [facility] [place] [address] [place] [address] Shreya Platt MD [address] [place] [address] documented as of this encounter Visit Diagnoses Not on filedocumented in this encounter Care Teams Surveyor Instrument Assistant Relationship Specialty Start Date End Date Ciera Saucedo FNP [address] [email or web address] [address] PCP - General Nurse Practitioner Family 05/24/21 documented as of this encounter
--- OUTSIDE RECORDS SUMMARY | 2024-08-13 20:08 | XMS_ITS | Encounter Summary ---
Author Organization [facility] Address [address] [place] [address] Care Team Providers Care Water Taxi Boat Mate Name Role Phone Ciera Saucedo BARBI Primary Care Provider [phone] Reason for Visit * Reason Onset Date Comments Medication Problem 06/30/2021 Need step up therapy per insurance Encounter Details Date Type Department Care Team (Late st Contact Info) Description 06/30/2021 Telephone [facility] [address] [facility] 1200 [place] [address] Shreya Platt MD [address] [facility] 100 [place] [address] Medication Problem (Need step up therapy per insurance) Social History Tobacco Use Types Packs/Day Years [...] Telephone Encounter - Shreya Platt MD - 07/01/2021 8:35 AM CDT Insurance mandating failure of MTX, 6MP, or steroids. Will start quick steroid taper and resubmit order for infliximab. Shreya Platt MD * Telephone Encounter - Myah, Yanet - 06/30/2021 1:28 PM CDT OV 05-25-21 Dr. Platt patient was seen as above. You wanted to initiate Enyvio after above visit. A new order for Remicade was sent and this therapy was also denied by her insurance carrier. We also need a copy of her actual PPD test for our records and I have reached out to her PCP office. I spoke with Freddie at [facility] [phone]//FAX: [phone] and she stated the patients insurance is requiring that Pennie needs to have tried and failed 6MP, Imuran, Methotrexate or oral steroids. Patient has been advised. Her pharmacy is attached. Please let us know how you would like to proceed. documented in this encounter Plan of Treatment Upcoming Encounters Date Type Department Care Team (Late st Contact Info) Description 09/22/2024 8:00 AM PEST CONTROL WORKER Office Visit [facility] [place] [address] [facility] [address] [place] [address] Shreya Platt MD [address] [place] [address] documented as of this encounter Visit Diagnoses Not on filedocumented in this encounter Care Teams Water Taxi Boat Mate Relationship Specialty Start Date End Date Ciera Saucedo FNP [address] [place] [address] PCP - General Nurse Practitioner Family 05/24/21 documented as of this encounter
--- OUTSIDE RECORDS SUMMARY | 2024-08-13 20:08 | XMS_ITS | Encounter Summary ---
Author Organization [facility] Address [address] [place] [address] Care Team Providers Care Packaging Specialist Name Role Phone Ciera Saucedo BARBI Primary Care Provider [phone] Encounter Details Date Type Department Care Team (Late Contact Info) Description 05/26/2021 Abstract [facility] Gastroenterology [place] [address] [address] Zoe Gomez, RN Social History Tobacco Use Types Packs/Day [...] (Late Contact Info) Description 09/22/2024 8:00 AM SPRAY PAINTING MACHINE OPERATOR Office Visit [facility] IBD [facility]astroenterology [facility] [address] [facility] [facility] [address] [place] [address] Shreya Platt MD [address] [facility] [facility] [address] [place] [address] documented as of this encounter Visit Diagnoses Not on filedocumented in this encounter Care Teams Packaging Specialist Relationship Specialty Start Date End Date Ciera Saucedo FNP [address] [place] [address] PCP - General Nurse Practitioner Family 05/24/21 documented as of this encounter
--- OUTSIDE RECORDS SUMMARY | 2024-08-13 20:08 | XMS_ITS | Encounter Summary ---
Author Organization [facility] Address [address] [facility] Attn: [place] [address] Care Team Providers Care High School Music Teacher Name Role Phone Ciera Saucedo BARBI Primary Care Provider [phone] Encounter Details Date Type Department Care Team (Latest Contact Info) Description 07/26/2022 Travel Social History Tobacco Use Types Packs/Day [...] Coronavirus/COVID-19? No / Unsure 07/26/2022 5:13 PM IMAGING ADMINISTRATOR documented as of this encounter Plan of Treatment Upcoming Encounters Date Type Department Care Team (Late st Contact Info) Description 09/22/2024 8:00 AM IMAGING ADMINISTRATOR Office Visit [facility] [place] [address] [place] [address] Shreya Platt MD [address] [place] [address] documented as of this encounter Visit Diagnoses Not on filedocumented in this encounter Care Teams High School Music Teacher Relationship Specialty Start Date End Date Ciera Saucedo FNP [address] [place] [address] PCP - General Nurse Practitioner Family 05/24/21 documented as of this encounter
--- OUTSIDE RECORDS SUMMARY | 2024-08-13 20:08 | XMS_ITS | Encounter Summary ---
Author Organization [facility] Address [address] [place] [address] Care Team Providers Care Television Installer Helper Name Role Phone Ciera Saucedo BARBI Primary Care Provider [phone] Reason for Visit * Reason Comments Follow Up Encounter Details Date Type Department Care Team (Latest Contact Info) Description 11/06/2022 8:20 AM CDT Office Visit [facility] IBD and Gastroenterology Center [address] [facility] [address] [place] [address] Shreya Platt MD [address] [facility] [address] [place] [address] Crohn's disease of small intestine with complication (Primary Dx) Social History Tobacco Use Types Packs/Day Years Used Date Smoking Tobacco: Never Smokeless Tobacco: Never Tobacco Cessation:Counseling Given: Not Answered Alcohol Use Standard Drinks/Week Comments Yes 5 [...] suspected to have Coronavirus/COVID-19? No / Unsure 11/06/2022 8:17 AM CDT documented as of this encounter Last Filed Vital Signs Vital Sign Reading Time Taken Comments Blood Pressure 122/75 11/06/2022 8:28 AM CDT Pulse 81 11/06/2022 8:28 AM CDT Temperature 36.3 ??C (97.4 ??F) 11/06/2022 8:28 AM CD T Respiratory Rate - - Oxygen Saturation 98% 11/06/2022 8:28 AM CDT Inhaled Oxygen Concentration - - Weight 115.2 kg (254 lb) 11/06/2022 8:28 AM CDT Height 162.6 cm (5' 4 ) 11/06/2022 8:28 AM CDT Body Mass Index 43.6 11/06/2022 8:28 AM CDT documented in this encounter Progress Notes * Shreya Platt MD - 11/06/2022 8:20 AM CDT [facility] Infl[facility]el Disease [facility] Shreya Platt MD Chief Complaint Patient presents with Follow Up Pennie Aguila is a 21 y.o. female with hx of migraines and crohn's ileitis. She presents today for follow up. She is currently 28 weeks today. She is feeling good today. Most of her pain is related to pressure from the baby and kicking. Her severe RUQ abdominal pain is better. She has occasionally had some gastritis pain which she takes bidppi. She sees Dr. Mccall. Baby is growing without issues. No other complaints today. I have personally reviewed patient's last EGD/Colonoscopy and looked at her CT scan. GI Hx: Ileitis . Colon was normal with normal colon biopsy. EGD showed mild gastritis no hpylori. [id number] daily. 10/2021 - started infliximab 12/2021 - ifx level 23, no ab. CRP 49 01/2022 - CTE normal. Sister has crohn's and I see her as well. She takes entyvio. (failed remicade and stelara) I have reviewed outside records today as part of this visit from [facility] Past Medical History: I updated the [...] headaches, dizziness, vertigo and seizures Exam: BP 122/75 Pulse 81 Temp 97.4 ??F (36.3 ??C) Ht 5' 4 (1.626 m) Wt 115.2 kg (254 lb) SpO2 98% BMI 43.60 kg/m?? General appearance: normal, alert, no distress, [...] on infliximab since 10/2021. She is doing great today. Normal CTE 01/2022, CRP 4.9 and infliximab level 23.5. Will continue ifx through her . Her next dose is next week then she will be due for 5/18 dose. She is due January 31. We discussed getting that 5/18 dose as long as it appears she will likely go to term. If she is having any pre-term labor issues or it looks like she will go early, we can hold that dose until after she delivers. 28week IUP - due January 31. seeing Issa Mccall. Happy to collaborate her care and ifx dosing closer to term. We also discussed that her baby should [...] OBGYN Recommendations: Continue Protonix 40mg twice daily. Continue infliximab 5mg/kg q 8 weeks, next dose 10/19 Return to clinic in 3-4months after delivery CC MD YOHANA Pereira MD [facility] CC: Ciera Saucedo FNP No orders of the defined types were placed in this encounter. Current Outpatient Medications: famotidine (PEPCID) 40 mg tablet, TAKE 1 TABLET BY MOUTH 2 TIMES DAILY, Disp: 180 Tablet, Rfl: 1 pantoprazole (PROTONIX) 40 mg Tablet, Delayed Release (E.C.), Take 80 mg by mouth daily., Disp: , Rfl: pantoprazole (PROTONIX) 40 mg Tablet, Delayed Release (E.C.), Take 1 Tablet (40 mg) by mouth daily., Disp: 90 Tablet, Rfl: 2 hyoscyamine 0.125 mg Tablet, Sublingual, Place 1 Tablet (0.125 mg) under tongue every 4 hours as needed for Spasm., Disp: 120 Tablet, Rfl: 1 cyclobenzaprine (FLEXERIL) 10 mg tablet, Take 10 mg by mouth daily., Disp: , Rfl: documented in this encounter Miscellaneous Notes * Patient Instructions - Shreya Platt MD - 11/06/2022 8:05 AM CDT Thank you for entrusting your healthcare to the physicians at [facility] Inflammatory Bowel Disease and Gastroenterology Following your visit, you may receive a survey via email or [employer]. Dr. Platt encourages you to respond to this confidential survey about your care. If you received excellent care, Dr. Plattwould appreciate your evaluation. Your feedback helps us to provide quality service at every visit.Thank you for your help in making our practice meet the highest expectations! [facility] Inflammatory Bowel Disease and Gastroenterology Center [address] [place] [address] Other important numbers to add to our contact info: After hours physician exchange: [phone] or MRI: Call [phone] To schedule an EGD/Colonoscopy/Flex Sig: Call [phone] IMPORTANT: The following information and instructions are from your visit today: Continue Protonix 40mg twice daily. Continue infliximab 5mg/kg q 8 weeks, next dose 10/19 Return to clinic in January after delivery. Shreya Platt MD documented in this encounter Plan of Treatment Upcoming Encounters Date Type Department Care Team (Late st Contact Info) Description 09/22/2024 8:00 AM HOSPICE COORDINATOR Office Visit [facility] IBD [facility] [place] [address] [facility] [address] [place] [address] Shreya Platt MD [address] [place] [address] documented as of this encounter Visit Diagnoses Diagnosis Crohn's disease of small intestine with complication- Primary Regional enteritis of small intestine documented in this encounter Care Teams Television Installer Helper Relationship Specialty Start Date End Date Ciera Saucedo FNP [address] [place] [address] PCP - General Nurse Practitioner Family 05/24/21 documented as of this encounter
--- OUTSIDE RECORDS SUMMARY | 2024-08-13 20:08 | XMS_ITS | Encounter Summary ---
Author Organization [facility] Address [address] [facility] Attn: [place] [address] Care Team Providers Care Fly Finisher Name Role Phone Ciera Saucedo BARBI Primary Care Provider [phone] Encounter Details Date Type Department Care Team (Latest Contact Info) Description 05/22/2022 Travel Social History Tobacco Use Types Packs/Day [...] st Contact Info) Description 09/22/2024 8:00 AM BRAND AMBASSADORS PROMOTIONAL SALES Office Visit [facility] IBD and Gastroenterology [facility] [place] [address] [place] [address] Shreya Platt MD [address] [place] [address] documented as of this encounter Visit Diagnoses Not on filedocumented in this encounter Care Teams Fly Finisher Relationship Specialty Start Date End Date Ciera Saucedo FNP [address] [place] [employer] [place] [address] PCP - General Nurse Practitioner Family 05/24/21 documented as of this encounter
--- OUTSIDE RECORDS SUMMARY | 2024-08-13 20:08 | XMS_ITS | Encounter Summary ---
Author Organization [facility] Address [address] [place] [address] Care Team Providers Care Silver Lap Machine Tender Name Role Phone Ciera Saucedo Primary Care Provider [phone] Encounter Details Date Type Department Care Team (Late st Contact Info) Description 05/24/2021 Abstract [facility] Gastroenterology [facility] [address] [address] Emerald Valdez Social History Tobacco Use [...] (Late Contact Info) Description 09/22/2024 8:00 AM MACHINE ICER Office Visit [facility] IBD and Gastroenterology [facility] [address] [facility] [address] [place] [address] Shreya Platt MD [address] [facility] 100 [place] [address] documented as of this encounter Visit Diagnoses Not on filedocumented in this encounter Care Teams Silver Lap Machine Tender Relationship Specialty Start Date End Date Ciera Saucedo FNP [address] [place] [address] PCP - General Nurse Practitioner Family 05/24/21 documented as of this encounter
--- OUTSIDE RECORDS SUMMARY | 2024-08-13 20:08 | XMS_ITS | Encounter Summary ---
Author Organization [facility] Address [address] [facility] Attn: [place] [address] Care Team Providers Care Form Setter Steel Forms Name Role Phone Ciera Saucedo BARBI Primary Care Provider [phone] Encounter Details Date Type Department Care Team (Latest Contact Info) Description 07/05/2022 Travel Social History Tobacco Use Types Packs/Day [...] Coronavirus/COVID-19? No / Unsure 07/05/2022 9:47 AM HEAD OF ADVERTISING documented as of this encounter Plan of Treatment Upcoming Encounters Date Type Department Care Team (Late st Contact Info) Description 09/22/2024 8:00 AM HEAD OF ADVERTISING Office Visit [facility] IBD and Gastroenterology Center [place] [address] [place] [address] Shreya Platt MD [address] [place] [address] documented as of this encounter Visit Diagnoses Not on filedocumented in this encounter Care Teams Form Setter Steel Forms Relationship Specialty Start Date End Date Ciera Saucedo FNP [address] [place] [address] PCP - General Nurse Practitioner Family 05/24/21 documented as of this encounter
--- OUTSIDE RECORDS SUMMARY | 2024-08-13 20:08 | XMS_ITS | Encounter Summary ---
Author Organization [facility] Address [address] [place] [address] Care Team Providers Care Photo Retoucher Name Role Phone Ciera Saucedo BARBI Primary Care Provider Reason for Referral * Eval and Treat (Routine) - Closed Specialty Diagnoses / Procedures Referred By Contac t Referred To Contact Diagnoses Crohn's disease of small and large intestines with complication Shreya Platt MD [facility][note 3][address] [address] [place] [address] Zoe Gomez mineralogy teacher ID Status Reason Start Date Expiration Date Visits Re quested Visits Authorized [id number] Closed 05/25/2021 05/25/2022 1 1 Encounter Details Date Type Department Care Team (Latest Contact Info) Description 05/25/2021 Orders Only [facility] Gastroenterology [facility] [address] [facility] 1200 [place] [address] Emerald Valdez Crohn's disease of small and large intestines with complication (Primary Dx) Social History Tobacco [...] st Contact Info) Description 09/22/2024 8:00 AM BREASTFEEDING PEER COUNSELOR Office Visit [facility] IBD and Gastroenterology Center [place] [address] [place] [address] Shreya Platt MD [address] [place] [address] Scheduled Referrals Name Type Priority Associated Diagnoses Orde r Schedule AMB REFERRAL TO NURSE NAVIGATOR Outpatient Referral Routine Crohn's disease of small and large intestines with complication Ordered: 05/25/2021 documented as of this encounter Visit Diagnoses Diagnosis Crohn's disease of small and large intestines with complication- Primary documented in this encounter Care Teams Photo Retoucher Relationship Specialty Start Date End Date Ciera Saucedo FNP [address] [place] [address] PCP - General Nurse Practitioner Family 05/24/21 documented as of this encounter
--- OUTSIDE RECORDS SUMMARY | 2024-08-13 20:08 | XMS_ITS | Encounter Summary ---
Author Organization [facility] Address [address] [place] [address] Care Team Providers Care Manager Treasury Name Role Phone EhsanCiera copeland BARBI Primary Care Provider [phone] Reason for Referral * Outpatient Services (Routine) - Closed Specialty Diagnoses / Procedures Referred By Contac t Referred To Contact Hematology and Oncology Diagnoses Crohn's disease of small and large intestines with complication Procedures INFUSION THERAPY INFUSION THERAPY ME INJECTION, INFLECTRA INFLIXIMAB-ddyb (INFLECTRA) Shreya Platt MD [address] [facility] [address] [place] [address] [place] [address] Referral ID Status Reason Start Date Expiration Date Visits Requested Visits Authorized [id number] Closed Performing Department to Schedule 10/11/2021 1 1 ER PLASTICS ROLLS Encounter Details Date Type Department Care Team (Latest Contact Info) Description 10/11/2021 Orders Only [facility] Gastroenterology [facility] [address] [facility] [address] [place] [address] Alfredo Villanueva Crohn's disease of small and large intestines [...] encounter Miscellaneous Notes * Addendum Note - Alfredo Villanueva - 10/11/2021 10:44 AM CSTAddended by: ALFREDO VILLANUEVA on: 10/11/2021 10:44 AM Modules accepted: Orders ER PLASTICS ROLLS documented in this encounter Plan of Treatment Upcoming Encounters Date Type Department Care Team (Late st Contact Info) Description 09/22/2024 8:00 AM CUTTER PLASTICS ROLLS Office Visit [facility] IBD and Gastroenterology Center [place] [address] [place] [address] Shreya Platt MD [address] [facility] [address] [place] [address] documented as of this encounter Visit Diagnoses Diagnosis Crohn's disease of small and large intestines with complication- Primary documented in this encounter Care Teams Manager Treasury Relationship Specialty Start Date End Date Ciera Saucedo FNP [address] [place] [address] PCP - General Nurse Practitioner Family 05/24/21 documented as of this encounter
--- OUTSIDE RECORDS SUMMARY | 2024-08-13 20:08 | XMS_ITS | Encounter Summary ---
Author Organization [facility] Address [address] [facility] Attn: [place] [address] Care Team Providers Care Flexible Machining System Machinist Name Role Phone Ciera Saucedo BARBI Primary Care Provider [phone] Encounter Details Date Type Department Care Team (Latest Contact Info) Description 02/16/2022 Travel Social History Tobacco Use Types Packs/Day [...] suspected to have Coronavirus/COVID-19? No / Unsure 02/16/2022 9:20 AM CDT documented as of this encounter Plan of Treatment Upcoming Encounters Date Type Department Care Team (Late st Contact Info) Description 09/22/2024 8:00 AM SEC REPORTING CONSULTANT Office Visit [facility] IBD and Gastroenterology Center [place] [address] [place] [address] Shreya Platt MD [address] [place] [address] documented as of this encounter Visit Diagnoses Not on filedocumented in this encounter Care Teams Flexible Machining System Machinist Relationship Specialty Start Date End Date Ciera Saucedo FNP [address] [place] [address] PCP - General Nurse Practitioner Family 05/24/21 documented as of this encounter
--- OUTSIDE RECORDS SUMMARY | 2024-08-13 20:08 | XMS_ITS | Encounter Summary ---
Author Organization [facility] Address [address] [facility] Attn: [place] [address] Care Team Providers Care Pressure Controller Name Role Phone Ciera Saucedo BARBI Primary Care Provider [phone] Encounter Details Date Type Department Care Team (Latest Contact Info) Description 11/06/2022 Travel Social History Tobacco Use Types Packs/Day [...] st Contact Info) Description 09/22/2024 8:00 AM DRESS CAP MAKER Office Visit [facility] IBD and Gastroenterology Center [place] [address] [place] [address] Shreya Platt MD [address] [place] [address] documented as of this encounter Visit Diagnoses Not on filedocumented in this encounter Care Teams Pressure Controller Relationship Specialty Start Date End Date Ciera Saucedo FNP [address] [place] [address] PCP - General Nurse Practitioner Family 05/24/21 documented as of this encounter
--- OUTSIDE RECORDS SUMMARY | 2024-08-13 20:08 | XMS_ITS | Encounter Summary ---
Author Organization [facility] Address [address] [place] [address] Care Team Providers Care Music Arranger Name Role Phone Ciera Saucedo BARBI Primary Care Provider [phone] Reason for Visit * Reason Comments Med Refill Encounter Details Date Type Department Care Team (Late st Contact Info) Description 09/24/2022 Refill [facility] IBD and Gastroenterology Center [address] [facility] [address] [place] [address] Kendra Brody, DARNELL [address] [place] [address] Social History Tobacco Use Types [...] encounter Miscellaneous Notes * Telephone Encounter - Anahi Bautista - 09/26/2022 9:12 AM CST Is this okay to refill? IBD [facility]ENTER MEDICATION REFILL REQUEST Last Refill: 03/27/2022 QTY: 180 RF: 1 [place]: 07/05/2022 NOV: 11/06/2022 Safety Monitoring Labs UTD? Yes Assessment/Recommendations/Plan: Pennie Aguila is a 21 y.o. with [...] recommend all IBD patients on Biologicssee high raw sugar boiler, and she will talk to her OB [...] ultrasound. Continue infliximab Return to clinic 3-4months ULSION MOTOR AND GENERATOR REPAIRER documented in this encounter Plan of Treatment Upcoming Encounters Date Type Department Care Team (Late st Contact Info) Description 09/22/2024 8:00 AM PROPULSION MOTOR AND GENERATOR REPAIRER Office Visit [facility] IBD and Gastroenterology Center [place] [address] [facility] 180 [place] [address] Shreya Platt MD [address] [place] [address] documented as of this encounter Visit Diagnoses Not on filedocumented in this encounter Care Teams Music Arranger Relationship Specialty Start Date End Date Ciera Saucedo FNP [address] [place] [address] PCP - General Nurse Practitioner Family 05/24/21 documented as of this encounter
--- OUTSIDE RECORDS SUMMARY | 2024-08-13 20:08 | XMS_ITS | Encounter Summary ---
Author Organization [facility] Address [address] [place] [address] Care Team Providers Care Tax Specialist Name Role Phone Ciera Saucedo BARBI Primary Care Provider Encounter Details Date Type Department Care Team (Late Contact Info) Description 05/25/2021 Abstract [facility] Gastroenterology [facility] [address] [address] Emerald Valdez Social History Tobacco [...] (Late Contact Info) Description 09/22/2024 8:00 AM DIRECTOR PROSPECT Office Visit [facility] IBD and Gastroenterology [facility] [address] [facility] [address] [place] [address] Shreya Platt MD [address] [place] [address] documented as of this encounter Visit Diagnoses Not on filedocumented in this encounter Care Teams Tax Specialist Relationship Specialty Start Date End Date Ciera Saucedo FNP [address] [place] [address] PCP - General Nurse Practitioner Family 05/24/21 documented as of this encounter
--- OUTSIDE RECORDS SUMMARY | 2024-08-13 20:08 | XMS_ITS | Encounter Summary ---
Author Organization [facility] Address [address] [place] [address] Care Team Providers Care Byproducts Extractor Name Role Phone Ciera Saucedo BARBI Primary Care Provider [phone] Reason for Visit * Reason Comments Follow Up Encounter Details Date Type Department Care Team (Late st Contact Info) Description 03/27/2022 8:30 AM CDT Office Visit [facility] [address] [address] Kendra Brody, DARNELL [address] [facility] [address] [place] [address] Crohn's disease of small intestine with complication (Primary Dx); Morbid obesity with body mass index (BMI) of 40.0 or higher Social History Tobacco Use Types Packs/Day Years [...] suspected to have Coronavirus/COVID-19? No / Unsure 03/27/2022 8:18 AM CDT documented as of this encounter Last Filed Vital Signs Vital Sign Reading Time Taken Comments Blood Pressure 112/77 03/27/2022 8:28 AM CDT Pulse 70 03/27/2022 8:28 AM CDT Temperature 36.7 ??C (98 ??F) 03/27/2022 8:28 AM CDT Respiratory Rate - - Oxygen Saturation 98% 03/27/2022 8:28 AM CDT Inhaled Oxygen Concentration - - Weight 112.9 kg (249 lb) 03/27/2022 8:28 AM CDT Height 162.6 cm (5' 4 ) 03/27/2022 8:28 AM CDT Body Mass Index 42.74 03/27/2022 8:28 AM CDT documented in this encounter Progress Notes * Kendra Brody ANP - 03/27/2022 8:30 AM CDT [facility] GATO Loco Chief Complaint Patient presents with ??? Follow Up Pennie Aguila is a 21 y.o. female with hx of migraines and crohn's ileitis. She presents today for follow up care in the IBD clinic. She has had 5 infliximab infusions, last being 02/16/22. Today, she continues to feel consistantly bloated after meals and has continuous RLQ pain. This pain wakes her up at night. She is only having 1 BM daily, varying consistancy. No blood or mucous. No nocturnal stools. She feel she is having some stiffness in her joints and has a scaly lesion on her left wrist. Her infusion nurse has been documenting progress. She is still doing pelvic floor therapy, which has decreased vaginal pain, and recently had a bowel massage. She is changing OBGYNs and has a new appt 04/17/2022. We discussed that her current infliximab level is theraputic. She is still on q4w dosing. She is open to getting an xray to confirm constipation +/- overflow and she feels that she is constipated at times but is still able to stool without straining. GERD is taking pantoprazole with some relief but is still having some symptoms of acid in her esophagus. She always takes this in the morning and doesn't eat breakfast. GI Hx: 10/2020 - Ileitis . Colon was normal with normal colon biopsy. EGD showed mild gastritis no hpylori.Protonix 20mg daily. 10/2021 - started infliximab 12/2021 - ifx level 23, no ab. CRP 4.9. Calpro 49 01/2022 - CTE normal Sister has crohn's (Dr. Platt patient). She takes entyvio. (failed remicade and stelara) I have reviewed outside records today as part of this visit from [facility] Past Medical History: I updated the [...] petechiae Musculoskeletal: as per HPI Neurological: negative dizziness, vertigo and seizures Exam: BP 112/77 Pulse 70 Temp 98 ??F (36.7 ??C) Ht 5' 4 (1.626 m) Wt 112.9 kg (249 lb) SpO2 98% BMI 42.74 kg/m?? General appearance: normal, alert, no distress, appears stated age Eyes: conjunctivae non-injected Neck: supple, symmetrical, no adenopathy Lungs: no respiratory distress, breathing comfortably. Abdomen: soft, no masses palpable, non-tender, non-distended, bowel sounds normal Extremities: no ulcers, no edema Joints: no synovitis Skin: nickel-sized scaly lesion present on left wrist without drainage Neuro: Converses and ambulates appropriately Relevant Laboratories: [...] 12/30/2021 BCRATIO NOT APPLICABLE 12/30/2021 Last Endoscopies: 10/2020 EGD/Colonoscopy at [facility]. Records show ileitis and gastritis. Last Imaging: CTE 01/2022 - Unremarkable examination. No evidence of active bowel [...] 01/2022, CRP 4.9 and infliximab level 23.5. We discussed ensuring we rule out other causesof this abdominal pain. We also discussed other future treatment options for her Crohn's. She is resistant to injection therapy but would be able to use Skyrizi on body injector. We also discussed repeating EGD/Colonoscopy in the future, pending OBGYN visit. 2. Skin lesion - small, scaly lesion without drainage present on left wrist. Infusion nurse has continued to document. Referred to see Dermatology. 3. Abdominal pain - Pelvic pain has improved with pelvic floor therapy. RLQ pain continues. 4. Gastritis on EGD -h.pylori was negative. She is on protonix 80mg daily which has helped. She hasoccasional breakthrough symptoms. Will decrease portonix to 40mg daily and add famotide 40mg BID. 5. Bloating - worsens after meals and is sometimes accompanied by RUQ pain. Will give hyoscyamine for trial. 6. Morbid obesity - BMI 42.74 7. High risk medication use requiring close monitoring,infliximab- Quant gold and HbSag, core neg, 04/13/2021 normal. Repeat labs q3 months. 8. Health Maint in IBD patient Covid Vaccine with Booster - Complete November 2020 without booster Need Hepatitis B vaccination series Pneumonia vaccines due Flu Shot - due later this Fall Shingrix vaccine - will discuss at next visit Annual skin checks discussed Continue seeing OBGYN Recommendations: 1. Get abdominal xray. I will review xray and let you know about starting Miralax. 2. Decrease pantoprazole to 40mg daily and start famotidine 40mg BID to see if this decreases occurrence of breakthrough GERD. 3. Get labwork sometime this month, including updated TB and Hepatitis B. 4. Start using hyoscyamine prior to meals. [facility] message me if this is helpful in 1-2 weeks. 5. Continue infliximab q4 weeks. 6. Update your immunizations including COVID booster, hepatitis B series, pneumonia vaccines and influenza vaccine this Fall. 7. Return to clinic to see Dr. Platt as scheduled in June. On the day of the visit, I spent 80 minutes providing care to this patient including chart review, review of outside records, obtaining history from patient and their family, performing a medically appropriate examination, counseling and educating the patient/family/caregiver, ordering medications, tests, or procedures, and documenting clinical information in the medical record. Kendra Brody, DARNELL [facility] Gastroenterology and Inflammatory Bowel Disease CC: Ciera Saucedo FNP Orders Placed This Encounter ??? XR ABDOMEN 1 VW ??? QUANTIFERON TB GOLD ??? HEPATITIS B SURFACE AB, QUAL ??? HEPATITIS B SURFACE ANTIGEN ??? HEPATITIS B CORE AB TOTAL ??? CBC WITH DIFFERENTIAL ??? COMPREHENSIVE METABOLIC PANEL ??? C-REACTIVE PROTEIN ??? pantoprazole (PROTONIX) 40 mg Tablet, Delayed Release (E.C.) ??? hyoscyamine 0.125 mg Tablet, Sublingual Current Outpatient Medications: ??? hyoscyamine 0.125 mg Tablet, Sublingual, Place 1 Tablet (0.125 mg) under tongue every 4 hours as needed for Spasm., Disp: 120 Tablet, Rfl: 1 ??? cyclobenzaprine (FLEXERIL) 10 mg tablet, Take 10 mg by mouth daily., Disp: , Rfl: ??? pantoprazole (PROTONIX) 40 mg Tablet, Delayed Release (E.C.), Take 80 mg by mouth daily., Disp:, Rfl: ??? [DISCONTINUED] pantoprazole (PROTONIX) 20 mg Tablet, Delayed Release (E.C.), Take 40 mg by mouth daily., Disp: , Rfl: documented in this encounter Miscellaneous Notes * Result Encounter Note - Kendra Brody ANP - 04/17/2022 2:55 PM CDT Yumi Casper, Your labs all look good except for the slight elevation in your CRP. How are you feeling? DARNELL Manzano * Patient Instructions - Kendra Brody ANP - 03/27/2022 8:30 AM CDT Thank you for entrusting your healthcare to the physicians at [facility] Inflammatory Bowel Disease and Gastroenterology Following your visit, you may receive a survey via email or [employer]. Kendra encourages you to respond to this confidential survey about your care. If you received excellent care, Kendra would appreciate your evaluation. Your feedback helps us to provide quality service at every visit. Thank you for your help in making our practice meet the highest expectations! [facility] If you have IBD, this is the preferred office to contact. [address] [place] [address] Other important numbers to add to our contact info: After hours physician exchange: [phone] or MRI: Call [phone] To schedule an EGD/Colon/Flex Sig: Call [phone] IMPORTANT: The following information and instructions are from your visit today: 1. Get abdominal xray. I will review xray and let you know about starting Miralax. 2. Decreased pantoprazole to 40mg daily and start famotidine 40mg BID to see if this decreases occurrence of breakthrough GERD. 3. Get labwork sometime this month, including updated TB and Hepatitis B. 4. Start using hyoscyamine prior to meals. [employer] message me if this is helpful in 1-2 weeks. 5. Continue infliximab q4 weeks. 6. Update your immunizations including COVID booster, hepatitis B series, pneumonia vaccines and influenza vaccine this Fall. 7. Return to clinic to see Dr. Platt as scheduled in June. GATO Loco documented in this encounter Plan of Treatment Upcoming Encounters Date Type Department Care Team (Late st Contact Info) Description 09/22/2024 8:00 AM PRESS [employer]ER [employer]DE Office Visit [facility] [place] [address] [address] [place] [address] Shreya Platt MD [address] [place] [address] [place] [address] documented as of this encounter Procedures Procedure Name Priority Date/Time Associated Diagnosis Comments QUANTIFERON TB GOLD Routine 04/12/2022 1 1:29 AM CDT Crohn's disease of small intestine with complication HEPATITIS B CORE AB TOTAL Routine 04/12/2022 11:29 AM CDT Crohn's disease of small intestine with complication HEPATITIS B SURFACE AB, QUAL Routine 04/12/2022 11:29 AM CDT Crohn's disease of small intestine with complication HEPATITIS B SURFACE ANTIGEN Routine 04/12/2022 11:29 AM CDT Crohn's disease of small intestine with complication CBC WITH DIFFERENTIAL Routine 04/12/2022 11:29 AM CDT Crohn's disease of small intestine with complication C-REACTIVE PROTEIN Routine 04/12/2022 11 :29 AM CDT Crohn's disease of small intestine with complication COMPREHENSIVE METABOLIC PANEL Routine 04/12/2022 11:29 AM CDT Crohn's disease of small intestine with complication documented in this encounter Results * (ABNORMAL) C-REACTIVE PROTEIN (04/12/2022 11:29 AM CDT) CRP 9.4(H) <8.0 mg/L [facility] Comment: Test Performed at: [facility] [address] [place], [place] ??[phone] Yonny Connors D.O., MPH Blood 04/12/2022 11:2 9 AM CDT 04/12/2022 11:30 AM CDT Kendra Brody ANP CHEMISTRY ORDER JULIAN [facility] [phone] [facility] [address] [place] [address] * COMPREHENSIVE METABOLIC PANEL (04/12/2022 11:29 AM CDT) GLUCOSE 82 65 - 99 mg/dL [facility] Comment: ? Fasting reference interval BUN 8 7 - 25 mg/dL [facility] CREATININE 0.67 0.50 - 0.96 mg/dL [facility] GFR 126 > OR = 60 mL/min/1. 73m2 [facility] Comment: The eGFR is based on the CKD-EPI 2020 equation. To calculate the new eGFR from a previous Creatinine or Cystatin C result, go to https://www.kidney.org/professionals/ kdoqi/gfr%5Fcalculator BUN/CREAT RATIO NOT APPLICABLE 6 - 22 (calc) [facility] SODIUM 138 135 - 146 mmol/L [facility] POTASSIUM 4.0 3.5 - 5.3 mmol/L [facility] CHLORIDE 103 98 - 110 mmol/L [facility] CO2 26 20 - 32 mmol/L [facility] CALCIUM 9.0 8.6 - 10.2 mg/dL [facility] TOTAL PROTEIN 6.9 6.1 - 8.1 g/dL [facility] ALBUMIN 4.0 3.6 - 5.1 g/dL [facility] GLOBULIN 2.9 1.9 - 3.7 g/dL (calc) [facility] ALBUMIN/GLOBULI N RATIO 1.4 1.0 - 2.5 (calc) [facility] BILIRUBIN TOTAL 0.2 0.2 - 1.2 mg/dL [facility] ALKALINE PHOSPHATASE 76 31 - 125 U/L [facility] AST 13 10 - 30 U/L [facility] ALT 18 6 - 29 U/L [facility] Comment: Test Performed at: [facility] [address] [place], [place] ??[phone] Yonny Connors D.O., MPH Blood 04/12/2022 11:2 9 AM CDT 04/12/2022 11:30 AM CDT Kendra Brody [facility] CHEMISTRY ORDER [facility] [phone] [facility] [address] [place] [address] * CBC WITH DIFFERENTIAL (04/12/2022 11:29 AM CDT) WBC 5.8 3.8 - 10.8 Thousand/u L [facility] RBC 4.44 3.80 - 5.10 Million/uL [facility] HEMOGLOBIN 12.6 11.7 - 15.5 g/dL [facility] HEMATOCRIT 37.9 35.0 - 45.0 % [facility] MCV 85.4 80.0 - 100.0 fL [facility] MCH 28.4 27.0 - 33.0 pg [facility] MCHC 33.2 32.0 - 36.0 g/dL [facility] RDW 12.4 11.0 - 15.0 % [facility] PLATELETS 265 140 - 400 Thousand/u L [facility] MPV 10.7 7.5 - 12.5 fL [facility] NEUTROPHIL ABSOLUTE 2,471 1,500 - 7,800 cells/uL [facility] LYMPHOCYTE ABSOLUTE 2,587 850 - 3,900 cells/uL [facility] MONOCYTE ABSOLUTE 563 200 - 950 cells/uL [facility] EOSINOPHIL ABSOLUTE 151 15 - 500 cells/uL [facility] BASOPHILS ABSOLUTE 29 0 - 200 cells/uL [facility] NEUTROPHIL 42.6 % [facility] LYMPHOCYTES 44.6 % [facility] MONOCYTE 9.7 % [facility] EOSINOPHILS 2.6 % [facility] BASOPHILS 0.5 % [facility] Comment: Test Performed at: [facility] [address] [place], [place] ??[phone] Yonny Connors D.O., MPH Blood 04/12/2022 11:2 9 AM CDT 04/12/2022 11:30 AM CDT Kendra PATRICK HEMATOLOGY [facility] [phone] [facility] [address] [place] [phone] * HEPATITIS B CORE AB TOTAL (04/12/2022 11:29 AM CDT) HEPATITIS B CORE AB NON-REACTI VE NON-REACTI VE [facility] Comment: Test Performed at: [facility] [address] [place], [place] ??[phone] Yonny Connors D.O., MPH Blood 04/12/2022 11:2 9 AM CDT 04/12/2022 11:30 AM CDT Kendra Lauren Brody ANP CHEMISTRY ORDER [facility] [phone] [facility] [address] [place] [address] * HEPATITIS B SURFACE ANTIGEN (04/12/2022 11:29 AM CDT) HEPATITIS B SURFACE AG NON-REACTI VE NON-REACTI VE [facility] Comment: Test Performed at: [facility] [address] [place], [place] ??[phone] Yonny Connors D.O., MPH Blood 04/12/2022 11:2 9 AM CDT 04/12/2022 11:30 AM CDT Kendra Brody ANP CHEMISTRY ORDER JULIAN Performing Organization Address [facility] Co de Phone Number [facility] [phone] [facility] [address] [place] [address] * HEPATITIS B SURFACE AB, QUAL (04/12/2022 11:29 AM CDT) HEPATITIS B SURFACE AB, QUAL NON-REACTI VE NON-REACTI VE [facility] Comment: Test Performed at: [facility] [address] [place], [place] ??[phone] Yonny Connors D.O., MPH Blood 04/12/2022 11:2 9 AM CDT 04/12/2022 11:30 AM CDT Kendra Brody ANP CHEMISTRY ORDER JULIAN Performing Organization Address City/[facility]/ZIP Co de Phone Number [facility] [phone] [facility] [address] [place] [address] * QUANTIFERON TB GOLD (04/12/2022 11:29 AM CDT) QUANTIFERON TB GOLD PLUS NEGATIVE NEGATIVE [facility] Comment: Negative test result. M. tuberculosis complex infection unlikely. NIL 0.01 IU/mL [facility] MITOGEN-NIL 4.74 IU/mL [facility] TB1 AG - [...] T-lymphocytes. For additional information, please refer to https://education.Classiqs/faq/KOD925 (This link is being provided for informational/ educational purposes only.) Test Performed at: [facility] ??[phone] Yonny Connors D.O., MPH Blood 04/12/2022 11:2 9 AM CDT 04/12/2022 11:30 AM CDT Kendra Brody ANP CHEMISTRY ORDER JULIAN [facility] [phone] [facility] [place] [address] documented in this encounter Visit Diagnoses Diagnosis Crohn's disease of small intestine with complication- Primary Regional enteritis of small intestine Morbid obesity with body mass index (BMI) of 40.0 or higher documented in this encounter Care Teams Byproducts Extractor Relationship Specialty Start Date End Date Ciera Saucedo FNP [address] [address] PCP - General Nurse Practitioner Family 05/24/21 documented as of this encounter
--- OUTSIDE RECORDS SUMMARY | 2024-08-13 20:08 | XMS_ITS | Encounter Summary ---
[facility] Organization [facility] Address [address] [place] [address] Care Team Providers Care Trading Specialist Name Role Phone SadiafredaCiera Primary Care Provider [phone] Reason for Referral * Outpatient Services (Routine) - Closed Specialty Diagnoses / Procedures Referred By Contkarthikeyan t Referred To Contact Gastroenterology Diagnoses Crohn's disease of small intestine with complication Procedures INFUSION THERAPY Javier Nye MD [address] [place] [address] [place] [address] [facility] And Gastroenterology Center [facility] [address] [address] Referral ID Status Reason Start Date Expiration Date Visits Re quested Visits Authorized [id number] Closed 01/06/2022 02/06/2023 1 1 * Eval and Treat (Routine) - Closed Specialty Diagnoses / Procedures Referred By Contkarthikeyan t Referred To Contact Gastroenterology Diagnoses Crohn's disease of small intestine with complication Javier Nye MD [address] [facility] [address] [place] [address] [facility] And [facility]astroenterology Center [facility] [address] [address] Referral ID Status Reason Start Date Expiration Date Visits Re quested Visits Authorized [id number] Closed 01/03/2022 01/03/2023 1 1 Reason for Visit * Reason Onset Date Comments not doing well 12/28/2021 Encounter Details Date Type Department Care Team (Late st Contact Info) Description 12/28/2021 Telephone [facility] IBD and Gastroenterology Center [address] [place] [address] Javier Nye MD [address] [place] [address] not doing well Social History Tobacco Use Types Packs/Day Years [...] encounter Miscellaneous Notes * Telephone Encounter - Manuelito England RN - 02/07/2022 11:33 AM CDT Called and spoke to patient, we will see her tomorrow at 12. * Telephone Encounter - Manuelito England RN - 02/06/2022 12:50 PM CDT Pennie called the office hoping to schedule an earlier appointment with Dr Nye. Nothing available in February, I have added patient to the waitlist. * Result Encounter Note - Javier Nye MD - 01/27/2022 6:20 PM CDT Abida, The infliximab level looks good. I'd like to see you in the office sooner than later to talk about how you are doing and what the next steps are. Call the office and make a sooner appointment so we can chat. Thanks, Javier Nye MD * Result Encounter Note - Javier Nye MD - 01/13/2022 1:05 PM CDT Pennie Aguila, Your labs look normal. Nothing to be concerned about. Let me know if you have any questions. Javier Nye MD * Telephone Encounter - Manuelito England RN - 01/12/2022 2:00 PM CDT Approved Inflectra infusion, needs to be seen in office before March to get further approval Auth expires on Apr 11 * Addendum Note - Manuelito England RN - 01/06/2022 9:48 AM CDTAddended by: MANUELITO ENGLAND on: 01/06/2022 09:48 AM Modules accepted: Orders * Telephone Encounter - Manuelito England RN - 01/06/2022 9:10 AM CDT [facility] Eve called back. She will work on insurance authorization. * Telephone Encounter - Manuelito England RN - 01/06/2022 8:52 AM CDT Called back [facility] Services, no answer, LVM. * Addendum Note - Javier Nye MD - 01/06/2022 7:15 AM CDTAddended by: JAVIER NYE on: 01/06/2022 07:15 AM Modules accepted: Orders * Telephone Encounter - Javier Nye MD - 01/06/2022 7:13 AM CDT Pennie continues to do very poorly. She has completed induction without a response. Next dose is due 02/16. Will increase dosing to q 4 week dosing so she can get anohter dose in late December then can go back to q 8 week if she responds. Will check ifx trough level/ab prior to that ~January 16 dose. Javier Nye MD * Addendum Note - Manuelito England RN - 01/03/2022 10:55 AM CDTAddended by: MANUELITO ENGLAND on: 01/03/2022 10:55 AM Modules accepted: Orders * Telephone Encounter - Manuelito England RN - 01/03/2022 10:50 AM CDT Received call from [facility] Services # [phone], spoke to Aesmia They are needing a new PA for continuation of care. To be able to do this, they need updated OV notes or a symptom check in. She is due to start her Q8week dosing of IFX on February 16. * Telephone Encounter - Soheila Pike - 12/28/2021 1:27 PM CDT Patient called and her last infusion inflectra was 12/21/2021. She is still having blood in stool pain has never gone away. She is bloating. Having a lot of diarrhea daily. She is not sure if the inflectra is working. Sending patient to [facility] to get stool samples and blood work done today. documented in this encounter Plan of Treatment Upcoming Encounters Date Type Department Care Team (Late st Contact Info) Description 09/22/2024 8:00 AM DOG GROOMER Office Visit [facility] IBD and Gastroenterology Center [place] [address] [place] [address] Javier Nye MD [address] [place] [address] Scheduled Referrals Name Type Priority Associated Diagnoses Orde r Schedule AMB REFERRAL TO NURSE NAVIGATOR Outpatient Referral Routine Crohn's disease of small intestine with complication Ordered: 01/03/2022 documented as of this encounter Procedures Procedure Name Priority Date/Time Associated Diagnosis Comments INFLIXIMAB LEVEL PANEL Routine 01/19/2022 12:45 PM CDT Crohn's disease of small intestine with complication CALPROTECTIN, FECAL Routine 01/04/2022 9 :58 AM CDT Crohn's disease of small intestine with complication C. DIFFICILE DETECTION Routine 01/04/2022 9:58 AM CDT Crohn's disease of small intestine with complication STOOL CULTURE W/SHIGA TOXIN Routine 01/04/2022 9:58 AM CDT Crohn's disease of small intestine with complication INFLIXIMAB LEVEL PANEL Routine 12/30/2021 12:19 PM CDT Crohn's disease of small intestine with complication CBC WITH DIFFERENTIAL Routine 12/30/2021 12:19 PM CDT Crohn's disease of small intestine with complication C-REACTIVE PROTEIN Routine 12/30/2021 12 :19 PM CDT Crohn's disease of small intestine with complication COMPREHENSIVE METABOLIC PANEL Routine 12/30/2021 12:19 PM CDT Crohn's disease of small intestine with complication documented in this encounter Results * INFLIXIMAB LEVEL PANEL (01/19/2022 12:45 PM CDT) INFLIXIMAB LEVEL, IBD 23.2 mcg/mL [facility] INFLIXIMAB AB, IBD <10 <10 AU [facility] INFLIXIMAB INTERPRETATION SEE NOTE [facility] Comment: The infliximab and infliximab anti-drug antibody [...] clinical equivalence studies, the FDA and the [place] [employer] advocate applying infliximab clinical guidance to the use of its biosimilars. The [place] [employer] recommends optimal infliximab trough concentration [...] treating healthcare professional should refer to the billing and quality technician's approved labeling for prescribing, warnings, side effects and other important information. INFLIXIMAB COMMENT SEE NOTE [facility] Comment: This test was developed and its analytical performance characteristics have been determined by [facility]. It has not been cleared or approved by FDA. This assay has been validated pursuant to the CLIA regulations and is used for clinical purposes. For additional information, please refer to https://education.Unmetric.LiveVox/faq/QIG287 (This link is being provided for informational/educational purposes only.) Test Performed at: [facility], [address] [place] ??[address] Aaliyah Esquivel MD,PhD,FATOU Blood 01/19/2022 12:4 5 PM CDT 01/19/2022 12:46 PM CDT Javier Nye MD CHEMISTRY ORDERAB LES [facility] [phone] * STOOL CULTURE W/SHIGA TOXIN (01/04/2022 9:58 AM CDT) CAMPY ANTIGEN, EIA SEE NOTE [facility] Comment: ??CAMPYLOBACTER SPP. AG,EIA ?Micro Number: ?[id number] ??Test Status: ? Final ??Specimen Source: ?? Stool ??Specimen Quality: ??Adequate ??Campy Ag Result: ?? Not Detected ??Reference Range: ?? Not Detected ?? E.COLI SHIGA TOXIN, EIA SEE NOTE [facility] Comment: ??SHIGA TOXINS, EIA W/RFL TO E.COLI O157 CULTURE ?Micro Number: ?[id number] ??Test Status: ? Final ??Specimen Source: ?? Stool ??Specimen Quality: ??Adequate ??Shiga Toxin: ? Not Detected ??Reference Range: ?? Not Detected ?? STOOL CULTURE SEE NOTE [facility] Comment: ??SALMONELLA AND SHIGELLA, CULTURE ?Micro Number: ?[id number] ??Test Status: ? Final ??Specimen Source: ?? Stool ??Specimen Quality: ??Adequate ??Result: ?No Salmonella or Shigella isolated Test Performed at: [facility] ??[address] [facility] Stool STOOL SPECIMEN / Unknown 01/04/2022 9:58 AM CDT 01/04/2022 9:59 AM CDT Javier Nye MD MICROBIOLOGY - NERAL ORDERABLES Performing Organization Address [facility] Co de Phone Number [facility] [phone] * C. DIFFICILE DETECTION (01/04/2022 9:58 AM CDT) C DIFFICILE TOXIN B QUAL NOT DETECTED NOT DETECTED [facility] Comment: This test is for use only with liquid or soft stools; performance characteristics of other clinical specimen types have not been established. This assay was performed by [facility](R) [employer]. The performance characteristics of this assay have been determined by [facility]. Performance characteristics refer to the analytical performance of the test. For additional information, please refer to http://education.Punchey/faq/OLU663 (This link is being provided for informational/educational purposes only.) Test Performed at: [facility] [address] [place] ??[address] Yonny Connors D.O., MPH Stool STOOL SPECIMEN / Unknown 01/04/2022 9:58 AM CDT 01/04/2022 9:59 AM CDT Javier Nye MD MICROBIOLOGY - [facility] ORDERABLES [facility] [phone] * CALPROTECTIN, FECAL (01/04/2022 9:58 AM CDT) CALPROTECTIN, FECAL 49 mcg/g [facility] Comment: ?Reference Range: ?<50 ? Normal ?50-120 ??Borderline ?>120 ?Elevated Calprotectin in Crohn's disease and ulcerative colitis can be five to several thousand times above the reference population (50 mcg/g or less). Levels are usually 50 mcg/g or less in healthy patients and with irritable bowel syndrome. Repeat testing in 4-6 weeks is suggested for borderline values. Test Performed at: [facility], [address] [facility] [place] [facility] ??[address] Aaliyah Esquivel MD,PhD,FATOU Stool STOOL SPECIMEN / Unknown 01/04/2022 9:58 AM CDT 01/04/2022 9:59 AM CDT Javier Nye MD BODY FLUIDS AND S TOOLS [facility] [phone] * INFLIXIMAB LEVEL PANEL (12/30/2021 12:19 PM CDT) INFLIXIMAB LEVEL, IBD >50.0 mcg/mL [facility] INFL[facility] AB, IBD <10 <10 AU [facility] INFLIXIMAB INTERPRETATION SEE NOTE [facility] Comment: The infliximab and infliximab anti-drug antibody [...] clinical equivalence studies, the FDA and the [place] [employer]astro[employer] advocate applying infliximab clinical guidance to the use of its biosimilars. The [place] Gastro[employer] Association recommends optimal infliximab trough concentration [...] treating healthcare professional should refer to the billing and quality technician's approved labeling for prescribing, warnings, side effects and other important information. INFLIXIMAB COMMENT SEE NOTE [facility] Comment: This test was developed and its analytical performance characteristics have been determined by [facility]. It has not been cleared or approved by FDA. This assay has been validated pursuant to the CLIA regulations and is used for clinical purposes. For additional information, please refer to https://education.Unmetric.LiveVox/faq/ATG459 (This link is being provided for informational/educational purposes only.) Test Performed at: [facility], [address] [place] ??[address] Aaliyah Esquivel MD,PhD,FATOU Blood 12/30/2021 12:1 9 PM CDT 12/30/2021 12:20 PM CDT Javier Nye MD CHEMISTRY ORDERAB LES [facility] [phone] * C-REACTIVE PROTEIN (12/30/2021 12:19 PM CDT) CRP 4.9 <8.0 mg/L [facility] Comment: Test Performed at: [facility] ??[address] Yonny Connors D.O., MPH Blood 12/30/2021 12:1 9 PM CDT 12/30/2021 12:20 PM CDT Javier Nye MD CHEMISTRY ORDERAB LES Performing Organization Address City/[facility]/ZIP Co de Phone Number [facility] [phone] * COMPREHENSIVE METABOLIC PANEL (12/30/2021 12:19 PM CDT) GLUCOSE 96 65 - 99 mg/dL [facility] Comment: ? Fasting reference interval BUN 13 7 - 25 mg/dL [facility] CREATININE 0.67 0.50 - 1.10 mg/dL [facility] GFR 124 > OR = 60 mL/min/1. 73m2 [facility] GFR, 144 > OR = 60 mL/min/1. 73m2 [facility] BUN/CREAT RATIO NOT APPLICABLE 6 - 22 (calc) [facility] SODIUM 139 135 - 146 mmol/L [facility] POTASSIUM 4.4 3.5 - 5.3 mmol/L [facility] CHLORIDE 104 98 - 110 mmol/L [facility] CO2 28 20 - 32 mmol/L [facility] CALCIUM 9.0 8.6 - 10.2 mg/dL [facility] TOTAL PROTEIN 7.3 6.1 - 8.1 g/dL [facility] ALBUMIN 4.2 3.6 - 5.1 g/dL [facility] GLOBULIN 3.1 1.9 - 3.7 g/dL (calc) [facility] ALBUMIN/GLOBULI N RATIO 1.4 1.0 - 2.5 (calc) [facility] BILIRUBIN TOTAL 0.3 0.2 - 1.2 mg/dL [facility] ALKALINE PHOSPHATASE 73 31 - 125 U/L [facility] AST 14 10 - 30 U/L [facility] ALT 19 6 - 29 U/L [facility] Comment: Test Performed at: [facility] [address] [place] ??[address] Yonny Connors D.O., MPH Blood 12/30/2021 12:1 9 PM CDT 12/30/2021 12:20 PM CDT Javier Nye MD CHEMISTRY ORDERAB LES [facility] [phone] * CBC WITH DIFFERENTIAL (12/30/2021 12:19 PM CDT) WBC 6.0 3.8 - 10.8 Thousand/u L [facility] RBC 4.66 3.80 - 5.10 Million/uL [facility] HEMOGLOBIN 12.6 11.7 - 15.5 g/dL [facility] HEMATOCRIT 38.6 35.0 - 45.0 % [facility] MCV 82.8 80.0 - 100.0 fL [facility] MCH 27.0 27.0 - 33.0 pg [facility] MCHC 32.6 32.0 - 36.0 g/dL [facility] RDW 12.7 11.0 - 15.0 % [facility] PLATELETS 308 140 - 400 Thousand/u L [facility] MPV 10.5 7.5 - 12.5 fL [facility] NEUTROPHIL ABSOLUTE 2,550 1,500 - 7,800 cells/uL [facility] LYMPHOCYTE ABSOLUTE 2,988 850 - 3,900 cells/uL [facility] MONOCYTE ABSOLUTE 318 200 - 950 cells/uL [facility] EOSINOPHIL ABSOLUTE 102 15 - 500 cells/uL [facility] BASOPHILS ABSOLUTE 42 0 - 200 cells/uL [facility] NEUTROPHIL 42.5 % [facility] LYMPHOCYTES 49.8 % [facility] MONOCYTE 5.3 % [facility] EOSINOPHILS 1.7 % [facility] BASOPHILS 0.7 % [facility] Comment: Test Performed at: [facility] [address] [place] ??[address] Yonny Connors D.O., MPH Blood 12/30/2021 12:1 9 PM CDT 12/30/2021 12:20 PM CDT Javier Nye MD HEMATOLOGY ORDERA SLOANES Performing Organization Address City/State/[facility] Co de Phone Number [facility] [phone] documented in this encounter Visit Diagnoses Diagnosis Crohn's disease of small intestine with complication- Primary Regional enteritis of small intestine documented in this encounter Additional Health Concerns Infection Onset Date Last Indicated Resolved Time R/O C. diff 01/05/2022 01/04/2022 01/05/2022 1:51 PM CDT documented as of this encounter Care Teams Trading Specialist Relationship Specialty Start Date End Date Ciera Saucedo FNP [address] [place] [address] PCP - General Nurse Practitioner Family 05/24/21 documented as of this encounter
--- OUTSIDE RECORDS SUMMARY | 2024-08-13 20:08 | XMS_ITS | Encounter Summary ---
Author Organization [facility] Address [address] [place] [address] Care Team Providers Care Licensing Engineer Name Role Phone Ciera Saucedo BARBI Primary Care Provider [phone] Encounter Details Date Type Department Care Team (Late Contact Info) Description 02/20/2022 Orders Only [facility] IBD and Gastroenterology [place] [address] [place] [address] Kendra Brody, DARNELL [address] [place] [address] Social History Tobacco Use Types [...] st Contact Info) Description 09/22/2024 8:00 AM STRIKER OFF Office Visit [facility] IBD and Gastroenterology [facility] [address] [place] [address] Shreya Platt MD [address] [facility] [address] [place] [address] documented as of this encounter Visit Diagnoses Not on filedocumented in this encounter Care Teams Licensing Engineer Relationship Specialty Start Date End Date Ciera Saucedo FNP [address] [place] [address] PCP - General Nurse Practitioner Family 05/24/21 documented as of this encounter
--- OUTSIDE RECORDS SUMMARY | 2024-08-13 20:08 | XMS_ITS | Encounter Summary ---
Author Organization [facility] Address [address] [place] [address] Care Team Providers Care Adult Protective Caseworker Name Role Phone Ciera Saucedo BARBI Primary Care Provider [phone] Encounter Details Date Type Department Care Team (Late st Contact Info) Description 10/11/2021 Chart Note [facility] Gastroenterology [facility] [address] [facility] [address] [place] [address] Emerald Valdez Social History Tobacco [...] encounter Progress Notes * Emerald Valdez - 10/11/2021 10:46 AM CST Spoke to Freddie from [facility].. I will fax over a new order for inflectra since infliximab was denied STRIAL ENGINEERING documented in this encounter Plan of Treatment Upcoming Encounters Date Type Department Care Team (Late st Contact Info) Description 09/22/2024 8:00 AM INDUSTRIAL ENGINEERING Office Visit [facility] IBD and Gastroenterology [place] [address] [place] [address] Shreya Platt MD [address] [facility] [address] [place] [address] documented as of this encounter Visit Diagnoses Not on filedocumented in this encounter Care Teams Adult Protective Caseworker Relationship Specialty Start Date End Date Ciera Saucedo FNP [address] [place] [address] PCP - General Nurse Practitioner Family 05/24/21 documented as of this encounter
--- OUTSIDE RECORDS SUMMARY | 2024-08-13 20:08 | XMS_ITS | Encounter Summary ---
Author Organization [facility] Address [address] [place] [address] Care Team Providers Care Packer Operator Automatic Name Role Phone Ciera Saucedo BARBI Primary Care Provider [phone] Reason for Visit * Reason Onset Date Comments ultrasound in question 07/27/2022 Encounter Details Date Type Department Care Team (Late st Contact Info) Description 07/27/2022 Telephone [facility] IBD and Gastroenterology Center [address] [address] Shreya Platt MD [address] [facility] [address] [place] [address] ultrasound in question Social History Tobacco Use Types Packs/Day Years [...] Coronavirus/COVID-19? No / Unsure 07/26/2022 5:13 PM STARCH COOKER documented as of this encounter Miscellaneous Notes * Telephone Encounter - Jennyfer Nunez - 07/27/2022 2:34 PM CST Images from the original note were not included. Patient called to see if she can still get her imaging ordered by Dr. Platt the imaging facility said they thought she was too far along in her to get the imaging done unless they heardfrom Dr. Platt.. CH COOKER documented in this encounter Plan of Treatment Upcoming Encounters Date Type Department Care Team (Late st Contact Info) Description 09/22/2024 8:00 AM STARCH COOKER Office Visit [facility] IBD and Gastroenterology Center [place] [address] [facility] [address] [place] [address] Shreya Platt MD [address] [facility] [address] [place] [address] documented as of this encounter Visit Diagnoses Not on filedocumented in this encounter Care Teams Packer Operator Automatic Relationship Specialty Start Date End Date Ciera Saucedo FNP [address] [place] [address] PCP - General Nurse Practitioner Family 05/24/21 documented as of this encounter
--- OUTSIDE RECORDS SUMMARY | 2024-08-13 20:08 | XMS_ITS | Encounter Summary ---
Author Organization [facility] Address [address] [place] [address] Care Team Providers Care Children'S Program Coordinator Name Role Phone Ciera Saucedo BARBI Primary Care Provider Reason for Visit * Reason Onset Date Comments abd. pelvis orders 07/28/2022 Encounter Details Date Type Department Care Team (Late st Contact Info) Description 07/28/2022 Telephone [facility] IBD and Gastroenterology Center [address] [address] Shreya Platt MD [address] [facility] [address] [place] [address] abd. pelvis orders Social History Tobacco Use Types Packs/Day [...] Coronavirus/COVID-19? No / Unsure 07/26/2022 5:13 PM CANDY STARCH MOLD PRINTER documented as of this encounter Miscellaneous Notes * Telephone Encounter - Jennyfer Nunez - 07/28/2022 10:11 AM CST The laundry technician called IBD to speak with Dr. Platt because the plastic technician thinks Dr. Platt ordered the wrong images. Pt states RLQ pain and that the abd. Pelvis complete wouldn't image the RLQ , plastic technician also states that the patient is too far along in her , for these images . Per LAND PLANNER Mary Grace, to cancel the appt and wait for Dr. Platt to respond. Y STARCH MOLD PRINTER documented in this encounter Plan of Treatment Upcoming Encounters Date Type Department Care Team (Late st Contact Info) Description 09/22/2024 8:00 AM CANDY STARCH MOLD PRINTER Office Visit [facility] IBD and Gastroenterology Center [place] [address] [facility] [address] [place] [address] Shreya Platt MD [address] [place] [address] documented as of this encounter Visit Diagnoses Not on filedocumented in this encounter Care Teams Children'S Program Coordinator Relationship Specialty Start Date End Date Ciera Saucedo FNP [address] [place] [address] PCP - General Nurse Practitioner Family 05/24/21 documented as of this encounter
--- OUTSIDE RECORDS SUMMARY | 2024-08-13 20:08 | XMS_ITS | Encounter Summary ---
Author Organization [facility] Address [address] [place] [address] Care Team Providers Care Manufacturing Manager Name Role Phone EhsandinorahCiera Primary Care Provider [phone] Reason for Referral * MRI (Routine) - Closed Specialty Diagnoses / Procedures Referred By Carolina song Referred To Contact Radiology Diagnoses Crohn's disease of small intestine without complication Procedures MRI ENTEROGRAPHY CHG MRI, ABDOMEN, COMBO CHG MRI, PELVIS, COMBO Shreya Platt MD [address] [address] [facility] Mri [address] [place] [address] Referral ID Status Reason Start Date Expiration Date V isits Requested Visits Authorized [id number] Closed [facility] CTS 06/10/2021 08/26/2021 1 1 Reason for Visit * MRI (Routine) - Closed Specialty Diagnoses / Procedures Referred By Carolina t Referred To Contact Radiology Diagnoses Crohn's disease of small intestine without complication Procedures MRI ENTEROGRAPHY CHG MRI, ABDOMEN, COMBO CHG MRI, PELVIS, Shreya Grace MD [address] [address] [address] [facility] [place] [address] Referral ID Status Reason Start Date Expiration Date V isits Requested Visits Authorized [id number] Closed [facility] CTS 06/10/2021 08/26/2021 1 1 Encounter Details Date Type Department Care Team (Latest Contact Info) Description 06/15/2021 7:15 AM CDT - 06/15/2021 11:59 PM CDT Hospital Encounter [facility] [address] [place] [address] Shreya Platt MD [address] [facility] [address] [place] [address] Discharge Disposition: Home or Self [...] 04/22/2021 03/27/2022 documented as of this encounter Miscellaneous Notes * Treatment Plan - Ban Sims, RT - 06/15/2021 8:30 AM CDT Images from the original note were not included. ? ST IMS CT MRI Medication and Flush Protocol [facility] Approved by: [facility] - Medical Executive Committee Approval Date: 10/14/2020 ORDERS ARE ENTERED ???PER PROTOCOL?? Enter the protocol in the patient's electronic health record using [employer]: .imagingctmriprAccion Communication Orders: o For ordered imaging procedures requiring intravenous access: ??? Initiate a peripheral IV, if not already in place, and discontinue IV prior to discharge (if outpatient). ??? Enter order if needed: Insert Peripheral IV o Bariatric Oral Contrast: Post-surgical bariatric patients will have markedly reduced ability to drink normal quantities of liquid. ??? Four ounces will be the maximum amount or less if the patient cannot comfortably tolerate. ??? Cancel oral contrast if patient is nauseated or vomiting. ??? Water based contrast only Medication Orders: o Local Anesthetic for use [...] and documented in the EHR Progress Notes. Cystogram (CT Pelvis): Iopamidol (Isovue 300) 61%, 50mL, diluted with 250mL of sterile NS. Inject Isovue into 250mL bag ofNS. Clamp gonsales catheter prior to instilling solution via catheter. o Instill up to 300mL of Isovue and NS solution into bladder via catheter, one time. CT ORAL CONTRAST PROTOCOLS FOR ADULTS ??? Use Iohexol (Omnipaque) 240 mg/mL for CT scan unless patient has a documented allergy to contrast dye. ??? If allergy present, use Barium Sulfate (EZ Paque) for procedure. o Iohexol (Omnipaque) 240 mg/mL: 50ml added [...] of barium sulfate, orally, one time only. CT ORAL CONTRAST PROTOCOLS FOR PEDIATRICS Pediatrics = up to age 18 o Pediatric Radiologist will approve of one of the following products selected for procedure. ??? Barium Sulfate (EZ Paque) 96% oral suspension: preferred route is oral. May use nasoenteric tube if needed. [place] to 3 months Administer up to 90mL [...] of Barium sulfate, Orally, One Time Only Iohexol (Omnipaque) 240 mg/mL oral solution ; Dilute 25mL of Iohexol with 480mL of clear liquid of patient's choice. Administer the diluted solution per age as follows: Preferred route is orally. May use nasoenteric tube if needed. ; Send any remaining diluted Iohexol solution with the patient's nurse to CT ; ; [place] ; Administer 45mL of diluted Iohexol oral solution, orally every 30 minutes x 2 doses. ; 1 month to 1 year old ; Administer 120mL of diluted Iohexol oral solution, orally every 30 min x 2 doses. ; 1 year old to 5 years old ; Administer 180mL of Iohexol orally every 30 min x 2 doses. ; 5 years old to 10 years old ; Administer 240mL of Iohexol orally every 30 min x 2 doses. ; Over 10 years old ; Administer 300mL of Iohexol orally every 30 min x 2 doses. ; ; CT RECTAL CONTRAST PROTOCOLS ADULTS: o Iohexol (Omnipaque) 240 mg/mL: Dilute 50mL of Omnipaque with 900mL of warm water in an enema bag.Administer the diluted solution rectally via gravity per patient's tolerance, up to 950mLs, one time only. ; CT IV CONTRAST PROTOCOLS for ADULT ; ADULTS: (If patient is less than 55kg [...] than 55kg and confirm dose with radiologist. [place] to 15 years old Administer 2.2mL/kg (to [...] of NSF cases: o Gadodiamide (Omniscan?? - [employer]) o Gadopentetate dimeglumine (Magnevist?? - [employer]) o Gadoversetamide (OptiMARK?? - Guerbet) Group II: Agents associated with few, if any, unconfounded cases of NSF: o Gadobenate dimeglumine (MultiHance?? - [employer]) o Gadobutrol (Gadavist?? - [employer]; Gadovist in many countries) o Gadoteric acid (Dotarem?? - Guerbet, Clariscan - [employer]) Gadoteridol (ProHance?? - [employer]) Group III: Agents for which data remains limited regarding NSF risk, but for which few, if any unconfounded cases of NSF have been reported: Gadoxetate disodium (Eovist - [employer]; Primovist in many countries) documented in this encounter Plan of Treatment Upcoming Encounters Date Type Department Care Team (Late st Contact Info) Description 09/22/2024 8:00 AM BUSINESS CASE ANALYST Office Visit [facility] IBD and Gastroenterology Center [place] [address] [place] [address] Shreya Platt MD [address] [place] [address] [place] [address] documented as of this encounter Procedures Procedure Name Priority Date/Time Associated Diagnosis Comments MRI ENTEROGRAPHY Routine 06/15/2021 9:28 AM CDT Crohn's disease of small intestine without complication documented in this encounter Results * MRI ENTEROGRAPHY (06/15/2021 9:28 AM CDT) Anatomical Region Laterality Modality Abdomen Magnetic Resonan ce 06/15/2021 9:28 AM CDT Impressions 06/15/2021 11:00 AM CDT IMPRESSION: 1. Active inflammation involving an approximately 12 cm segment of terminal ileum without evidence of bowel obstruction, intra-abdominal abscess formation, or enteric fistula. DICTATION LOCATION: Location 1 - [facility] Narrative 06/15/2021 11:00 AM CDT EXAMINATION: Abdominal MRI without and with contrast HISTORY: Crohn's disease of small intestine without complication TECHNIQUE: Multiplanar, multisequence images were obtained through the abdomen before and after the uneventful administration of intravenous gadolinium contrast (20 mL ProHance) according to an enterographic protocol. COMPARISON: None available FINDINGS: Bowel: There is circumferential wall thickening with associated mucosal hyperenhancement involving an approximately 12 cm segment of terminal ileum with associated mild diffusion restriction, consistent with active inflammation. The remaining loops of small and large bowel are otherwise normal in appearance without evidence of obstruction. No MR evidence of intra-abdominal abscess formation or enteric fistula. Liver: No evidence of cirrhosis. No focal lesions identified. Vasculature: The hepatic veins are normal. The portal veins are normal. Biliary tree: No intrahepatic or extrahepatic biliary ductal dilatation is identified. Gallbladder: Normal in appearance without evidence of gallstones. Spleen: Normal in size without focal lesion. Pancreas: Normal in appearance without focal lesion. No pancreatic ductal dilatation. Adrenal glands: Normal in appearance without focal lesion. Kidneys: Normal in appearance without focal lesion. No hydronephrosis. Additional findings: The visible lung bases are clear. No suspicious intraosseous lesions are identified. A few mildly prominent right lower quadrant mesenteric lymph nodes are likely reactive. No free intraperitoneal fluid is identified. The uterus is normal in appearance. The urinary bladder is normal in appearance. Multiple small follicles are noted in the ovaries bilaterally. Procedure Note Gregor White MD - 06/15/2021 EXAMINATION: Abdominal MRI without and with contrast HISTORY: Crohn's disease of small intestine without complication TECHNIQUE: Multiplanar, multisequence images were obtained through the abdomen before and after the uneventful administration of intravenous gadolinium contrast (20 mL ProHance) according to an enterographic protocol. COMPARISON: None available FINDINGS: Bowel: There is circumferential wall thickening with associated mucosal hyperenhancement involving an approximately 12 cm segment of terminal ileum with associated mild diffusion restriction, consistent with active inflammation. The remaining loops of small and large bowel are otherwise normal in appearance without evidence of obstruction. No MR evidence of intra-abdominal abscess formation or enteric fistula. Liver: No evidence of cirrhosis. No focal lesions identified. Vasculature: The hepatic veins are normal. The portal veins are normal. Biliary tree: No intrahepatic or extrahepatic biliary ductal dilatation is identified. Gallbladder: Normal in appearance without evidence of gallstones. Spleen: Normal in size without focal lesion. Pancreas: Normal in appearance without focal lesion. No pancreatic ductal dilatation. Adrenal glands: Normal in appearance without focal lesion. Kidneys: Normal in appearance without focal lesion. No hydronephrosis. Additional findings: The visible lung bases are clear. No suspicious intraosseous lesions are identified. A few mildly prominent right lower quadrant mesenteric lymph nodes are likely reactive. No free intraperitoneal fluid is identified. The uterus is normal in appearance. The urinary bladder is normal in appearance. Multiple small follicles are noted in the ovaries bilaterally. IMPRESSION: 1. Active inflammation involving an approximately 12 cm segment of terminal ileum without evidence of bowel obstruction, intra-abdominal abscess formation, or enteric fistula. DICTATION LOCATION: Location 1 - [facility] Shreya Platt MD MR ORDERABLES documented in this encounter Visit Diagnoses Diagnosis Crohn's disease of small intestine without complication Regional enteritis of small intestine documented in this encounter Administered Medications Inactive Administered Medications - up to 3 most recent administrations Medication Order MAR Action Action Date Dose Rate Site gadoteridoL (PROHANCE) 279.3 mg/mL injection 20 mL 20 mL, IV, INTRA-PROCEDURE ONCE, 1 dose, Starting on Sun06/15/21 at 0902, Until Sun06/15/21 at 0923, Routine Contrast Given 06/15/2021 9:23 AM CDT 20 mL glucagon (Human Recombinant) (GLUCAGEN) 1 mg/mL injection 0.5 mg 0.5 mg, IV, INTRA-PROCEDURE ONCE, 1 dose, Starting on Sun06/15/21 at 0813, Until Sun06/15/21 at 0916, Routine Given 06/15/2021 9:16 AM CDT 0.5 mg glucagon (Human Recombinant) (GLUCAGEN) 1 mg/mL injection 0.5 mg 0.5 mg, IM, INTRA-PROCEDURE ONCE, 1 dose, Starting on Sun06/15/21 at 0814, Until Sun06/15/21 at 0832, Routine Given 06/15/2021 8:32 AM CDT 0.5 mg Arm, Right sodium chloride 0.9% infusion 50 mL IV, at 50 mL/hr, INTRA-PROCEDURE ONCE, 1 dose, Starting on Sun06/15/21 at 0902, Until Sun06/15/21 at 0924, Routine New Bag 06/15/2021 9:24 AM CDT 25 mL 50 mL/hr sodium chloride flush injection 10 mL 10 mL, IV, ONE TIME ONLY, 1 dose, On Sun06/15/21 at 0915, Routine Given 06/15/2021 8:46 AM CDT 10 mL documented in this encounter Care Teams Manufacturing Manager Relationship Specialty Start Date End Date Ciera Saucedo FNP [address] [place] [address] PCP - General Nurse Practitioner Family 05/24/21 documented as of this encounter
--- OUTSIDE RECORDS SUMMARY | 2024-08-13 20:08 | XMS_ITS | Encounter Summary ---
Author Organization [facility] Address [address] [facility] Attn: [place] [address] Care Team Providers Care Felt Washing Machine Tender Name Role Phone Ciera Saucedo BARBI Primary Care Provider [phone] Encounter Details Date Type Department Care Team (Latest Contact Info) Description 06/15/2021 Travel Social History Tobacco Use Types Packs/Day [...] st Contact Info) Description 09/22/2024 8:00 AM BUCKET WASH OPERATOR Office Visit [facility] IBD and Gastroenterology [facility] [place] [address] [facility] [address] [place] [address] Shreya Platt MD [address] [facility] 100 [place] [address] documented as of this encounter Visit Diagnoses Not on filedocumented in this encounter Care Teams Felt Washing Machine Tender Relationship Specialty Start Date End Date Ciera Saucedo FNP [address] [place] [address] PCP - General Nurse Practitioner Family 05/24/21 documented as of this encounter
--- OUTSIDE RECORDS SUMMARY | 2024-08-13 20:08 | XMS_ITS | Encounter Summary ---
Author Organization [facility] Address [address] [place] [address] Care Team Providers Care General Office Associate Name Role Phone Ciera Saucedo BARBI Primary Care Provider [phone] Reason for Visit * Reason Onset Date Comments Peer to peer 06/07/2021 Encounter Details Date Type Department Care Team (Late st Contact Info) Description 06/07/2021 Telephone [facility] Gastroenterology [facility] [address] [facility] [address] [place] [address] Shreya Platt MD [address] [place] [address] [place] [address] Peer to peer Social History Tobacco Use Types Packs/Day Years [...] Telephone Encounter - Shreya Platt MD - 06/10/2021 1:47 PM CDT Peer to peer was not successful. She must try humira or infliximab prior to vedolizumab. I talked to patient and she does not want injectables. Will order inflixima b to [facility] infusion [phone]. Shreya Platt MD * Telephone Encounter - Davon Karyna - 06/07/2021 2:30 PM CDT Rec'd call from [facility] Intramural DirectorLorena Angela Entyvio has been denied (non-certified), peer to peer will need to be done. She is needing a contact number, dates and times so a call can be scheduled. Pleaseadvise. Reference # [id number] documented in this encounter Plan of Treatment Upcoming Encounters Date Type Department Care Team (Late st Contact Info) Description 09/22/2024 8:00 AM DATA SECURITY CONSULTANT Office Visit [facility] IBD and Gastroenterology [facility] [place] [address] [facility] [address] [place] [address] Shreya Platt MD [address] [facility] [address] [place] [address] documented as of this encounter Visit Diagnoses Not on filedocumented in this encounter Care Teams General Office Associate Relationship Specialty Start Date End Date Ciera Saucedo FNP [address] [place] [address] PCP - General Nurse Practitioner Family 05/24/21 documented as of this encounter
--- OUTSIDE RECORDS SUMMARY | 2024-08-13 20:08 | XMS_ITS | Encounter Summary ---
Author Organization [facility] Address [address] [place] [address] Care Team Providers Care Hand Filer Balance Wheel Name Role Phone Ciera Saucedo BARBI Primary Care Provider [phone] Encounter Details Date Type Department Care Team (Late Contact Info) Description 05/25/2021 Abstract [facility] Gastroenterology [facility] [address] [address] [place] Social History Tobacco [...] (Late Contact Info) Description 09/22/2024 8:00 AM PEACH GROWER Office Visit [facility] IBD and Gastroenterology [facility] [address] [facility] [address] [place] [address] Shreya Platt MD [address] [place] [address] documented as of this encounter Visit Diagnoses Not on filedocumented in this encounter Care Teams Hand Filer Balance Wheel Relationship Specialty Start Date End Date Ciera Saucedo FNP [address] [place] [address] PCP - General Nurse Practitioner Family 05/24/21 documented as of this encounter
--- OUTSIDE RECORDS SUMMARY | 2024-08-13 20:08 | XMS_ITS | Encounter Summary ---
Author Organization [facility] Address [address] [place] [address] Care Team Providers Care Acid Pumper Name Role Phone Ciera Saucedo BARBI Primary Care Provider [phone] Reason for Visit * Reason Comments Follow Up Encounter Details Date Type Department Care Team (Latest Contact Info) Description 02/21/2023 12:00 PM CDT Office Visit [facility] IBD and Gastroenterology Center [address] [facility] 100 [place] [address] Shreya Platt MD [address] [facility] 100 [place] [address] Crohn's disease of small intestine [...] Sign Reading Time Taken Comments Blood Pressure 111/66 02/21/2023 12:18 PM CDT Pulse 76 02/21/2023 12:18 PM CDT Temperature 36.4 ??C (97.6 ??F) 02/21/2023 1 2:18 PM CDT Respiratory Rate 18 02/21/2023 12:1 8 PM CDT Oxygen Saturation 98% 02/21/2023 12: 18 PM CDT Inhaled Oxygen Concentration - - Weight 115.8 kg (255 lb 3.2 oz) 023 12:18 PM CDT Height 162.6 cm (5' 4 ) 02/21/2023 12:1 8 PM CDT Body Mass Index 43.8 02/21/2023 12:18 PM CDT documented in this encounter Progress Notes * Shreya Platt MD - 02/21/2023 12:23 PM CDT [facility] Shreya Platt MD Chief Complaint Patient presents with Follow Up Pennie Aguila is a 21 y.o. female with hx of migraines and crohn's ileitis. She presents today for follow up. She had a emergent Csection three weeks ago. He had meconium aspiration as well and required re-admission. She had no infectious complications post-. He is doing well. Wounds are doing well. She saw the surgeon yesterday and is cleared. I have personally reviewed patient's last EGD/Colonoscopy and looked at her CT scan. GI Hx: Ileitis . Colon was normal with normal colon biopsy. EGD showed mild gastritis no hpylori. [id number] daily. 10/2021 - started infliximab 12/2021 - ifx level 23, no ab. CRP 49 01/2022 - CTE normal. Sister has crohn's and I see her as well. She takes entyvio. (failed remicade and stelara) I have reviewed outside records today as part of this visit from [facility] Past Medical History: I updated the electronic [...] Sister Nae Aguila Cancer Maternal Uncle Kavon Cantuhegerson Pancreatic/ Bile duct Diabetes Paternal Uncle Pedro [...] headaches, dizziness, vertigo and seizures Exam: BP 111/66 Pulse 76 Temp 97.6 ??F (36.4 ??C) Resp 18 Ht 5' 4 (1.626 m) Wt 115.8 kg (255 lb 3.2 oz) SpO2 98% BMI 43.80 kg/m?? General appearance: normal, alert, no distress, [...] 23.5. Will continue ifx through her . 2 weeks post Csection - wounds healed well. Morbid obesity - BMI 43 High risk medication use requiring close monitoring,infliximab- Quant gold and HbSag, core neg, 03/2022 and labs in the hospital were normal recently. Health Maint in IBD patient Covid Vaccine with Booster - Complete November 2020 without booster Need Hepatitis B vaccination series Pneumonia vaccines due Flu Shot - due later this Fall Shingrix vaccine - will discuss at next visit Annual skin checks discussed Continue seeing OBGYN Recommendations: Repeat CT enterography if pain recurs. Continue Protonix 40mg twice daily. Continue infliximab 5mg/kg q 8 weeks Return in 4 months. CC Issa Mccall MD OB Shreya Platt MD [facility] Gastroenterology and Inflammatory Bowel Disease CC: [...] Patient Instructions - Shreya Platt MD - 02/21/2023 12:30 PM CDT Thank you for entrusting your healthcare to the physicians at [facility] Inflammatory Bowel Disease and Gastroenterology Following your visit, you may receive a survey via email or SavySwap. Dr. Platt encourages you to respond to this confidential survey about your care. If you received excellent care, Dr. Plattwould appreciate your evaluation. Your feedback helps us to provide quality service at every visit.Thank you for your help in making our practice meet the highest expectations! [facility] Inflammatory Bowel Disease and Gastroenterology Center [address] [place] [address] Other important numbers to add to our contact info: After hours physician exchange: [phone] or MRI: Call [phone] To schedule an EGD/Colonoscopy/Flex Sig: Call [phone] IMPORTANT: The following information and instructions are from your visit today: Repeat CT enterography if pain recurs. Continue Protonix 40mg twice daily. Continue infliximab 5mg/kg q 8 weeks Return in 4 months. Shreya Platt MD documented in this encounter Plan of Treatment Upcoming Encounters Date Type Department Care Team (Late st Contact Info) Description 09/22/2024 8:00 AM VEGETABLE COOK Office Visit [facility] IBD and Gastroenterology [facility] [address] [place] [address] Shreya Platt MD [address] [facility] [address] [place] [address] documented as of this encounter Visit Diagnoses Diagnosis Crohn's disease of small intestine with complication- Primary Regional enteritis of small intestine documented in this encounter Care Teams Acid Pumper Relationship Specialty Start Date End Date Ciera Saucedo FNP [address] [place] [address] PCP - General Nurse Practitioner Family 05/24/21 documented as of this encounter
--- OUTSIDE RECORDS SUMMARY | 2024-08-13 20:08 | XMS_ITS | Encounter Summary ---
Author Organization [facility] Address [address] [facility] Attn: [place] [address] Care Team Providers Care White Sugar Pan Tank Operator Name Role Phone Ciera Saucedo BARBI Primary Care Provider [phone] Encounter Details Date Type Department Care Team (Latest Contact Info) Description 02/08/2022 Travel Social History Tobacco Use Types Packs/Day [...] st Contact Info) Description 09/22/2024 8:00 AM CRATE MAKER Office Visit [facility] IBD [facility] Gastroenterology [facility] [place] [address] [place] [address] Shreya Platt MD [address] [place] [address] documented as of this encounter Visit Diagnoses Not on filedocumented in this encounter Care Teams White Sugar Pan Tank Operator Relationship Specialty Start Date End Date Ciera Saucedo FNP [address] [place] [address] PCP - General Nurse Practitioner Family 05/24/21 documented as of this encounter
--- OUTSIDE RECORDS SUMMARY | 2024-08-13 20:08 | XMS_ITS | Encounter Summary ---
Author Organization [facility] Address [address] [facility] Attn: [place] [address] Care Team Providers Care Shearing Machine Feeder Name Role Phone Ciera Saucedo BARBI Primary Care Provider [phone] Encounter Details Date Type Department Care Team (Latest Contact Info) Description 03/27/2022 Travel Social History Tobacco Use Types Packs/Day [...] st Contact Info) Description 09/22/2024 8:00 AM VETERANS SERVICE OFFICER Office Visit [facility] IBD and Gastroenterology Center [place] [address] [place] [address] Shreya Platt MD [address] [place] [address] documented as of this encounter Visit Diagnoses Not on filedocumented in this encounter Care Teams Shearing Machine Feeder Relationship Specialty Start Date End Date Ciera Saucedo FNP [address] [employer] [place] [address] PCP - General Nurse Practitioner Family 05/24/21 documented as of this encounter
--- OUTSIDE RECORDS SUMMARY | 2024-08-13 20:08 | XMS_ITS | Encounter Summary ---
Author Organization [facility] Address [address] [place] [address] Care Team Providers Care Data Acquisition Technician Name Role Phone Ciera Saucedo BARBI Primary Care Provider [phone] Reason for Referral * MRI (Routine) - Closed Specialty Diagnoses / Procedures Referred By Contac t Referred To Contact Radiology Diagnoses Crohn's disease of small intestine without complication Procedures MRI ENTEROGRAPHY CHG MRI, ABDOMEN, COMBO CHG MRI, PELVIS, COMBO Shreya Platt MD [address] [facility] [address] [place] [address] [facility] [address] [place] [address] Referral ID Status Reason Start Date Expiration Date V isits Requested Visits Authorized [id number] Closed ST CTS 06/10/2021 08/26/2021 1 1 Reason for Visit * Reason Comments Crohn's Disease Encounter Details Date Type Department Care Team (Latest Contact Info) Description 05/25/2021 9:00 AM CDT Office Visit [facility] Gastroenterology [facility] [address] [facility] [address] [place] [address] Shreya Platt MD [address] [facility] [address] [place] [address] Crohn's disease of small and large intestines with complication (Primary Dx); Crohn's disease of small intestine without complication; Crohn's disease of small intestine with complication [...] Sign Reading Time Taken Comments Blood Pressure 110/66 05/25/2021 9:07 AM CDT Pulse 67 05/25/2021 9:07 AM CDT Temperature - - Respiratory Rate - - Oxygen Saturation - - Inhaled Oxygen Concentration - - Weight 104.3 kg (230 lb) 05/25/2021 9:07 AM CDT Height 162.6 cm (5' 4 ) 05/25/2021 9:07 AM CDT Body Mass Index 39.48 05/25/2021 9:07 AM CDT documented in this encounter Progress Notes * Shreya Platt MD - 05/25/2021 9:00 AM CDT [facility] Inflammatory Bowel Disease Clinic Shreya Platt MD Chief Complaint Patient presents with ??? Crohn's Disease Pennie Aguila is a 20 y.o. female with hx of migraines and recent diagnosis of crohn's ileitis.She presents today with her Mom to establish care in the IBD clinic. In october she developed abdominal pain, mostly lower abdomen. She has ~6 stools daily. She had colonoscopy in [place] which showed ileitis (awaiting records of this). She has intermittent blood in the stools. She does have intermittent hemorrhoids. She also has epigastric abdominal pain. The EGD showed gastritis and she was started protonix 40mg daily. This has helped the epigastric pain significantly. GI Hx: Ileitis . Colon was normal with normal colon biopsy. EGD showed mild gastritis no hpylori. [id number] daily. Sister has crohn's and I see her as well. She take entyvio. (failed remicade and selara) I have reviewed outside records today as part of this visit from [facility] Past Medical History: I updated the electronic medical records of any updates in patients medical, social, and family hx. Past Medical History: Diagnosis Date ??? Crohn's disease No past surgical history on file. Family History Problem Relation Name Age of Onset ??? Crohn's Disease Sister Social History Socioeconomic History ??? Marital status: Single Spouse name: Not on file ??? Number of children: Not on file ??? Years of education: Not on file ??? Highest education level: Not on file Occupational History ??? Not on file Tobacco Use ??? Smoking status: Never Smoker Substance and Sexual Activity ??? Alcohol use: Yes ??? Drug use: Never ??? Sexual activity: Not on file Other Topics Concern ??? Not on file Social History Narrative ??? Not on file Social Determinants of Health Financial Resource Strain: ??? Difficulty of Paying Living Expenses: Food Insecurity: ??? Worried About Running Out of Food in the Last Year: ??? Ran Out of Food in the Last Year: Transportation Needs: ??? Lack of Transportation (Medical): ??? Lack of Transportation (Non-Medical): Physical Activity: ??? Days of Exercise per Week: ??? Minutes of Exercise per Session: Stress: ??? Feeling of Stress : Social Connections: ??? Frequency of Communication with Friends and Family: ??? Frequency of Social Gatherings with Friends and Family: ??? Attends Synagogue Services: ??? Active Member of Clubs or Organizations: ??? Attends Club or Organization Meetings: ??? Marital Status: Intimate Partner Violence: ??? Fear of Current or Ex-Partner: ??? Emotionally Abused: ??? Physically Abused: ??? Sexually Abused: No Known Allergies Review of Systems: Eyes: [...] headaches, dizziness, vertigo and seizures Exam: BP 110/66 Pulse 67 Ht 5' 4 (1.626 m) Wt 104.3 kg (230 lb) BMI 39.48 kg/m?? General appearance: normal, alert, no distress, [...] input(s): CRP in the last 72 hours. No results found for: WBC, MANUALWBC, HGB, HGBPOC, HCT, HCTPOC, PLT, MCV No results found for: NA, K, CL, CO2, CA, BUN, CREAT, GLUCOSE, TOTALPROTEIN, ALBUMIN, BILITOTAL, ALKPHOS, AST, ALT, ANIONGAP, BCRATIO Last Endoscopies: Last Imaging: CT 12/24/20 - CT with contrast. Mild diffuse mesenteric lymphadenopathy, most likely reactive. Assessment: Pennie Aguila is a 20 y.o. with hx of recent dx crohn's here to establish care. 1. Ileal crohn's - long discussion today about diagnosis, natural history, prognosis, risk/benefitsof therapy. Her sister has an identical presentation and has failed remicade and stelara with greatresponse to entyvio. For this reason, we agreed to proceed with entyvio q 8 weeks. In interim, willget MRE. 2. Gastritis on EGD -h.pylori was negative. She is on protonix 40mg daily which has helped. 3. Future use of Entyvio - Quant gold and HbSag, core neg, and Sab neg 04/13/2021 normal. 4. Health Maint in IBD patient a. Needs Hepatitis B vaccination. b. Needs flu shot c. Needs Pneumovax. d. Covid with booster. Recommendations: 1. Get MR enterography at [facility] 2. Get labs at [facility] 3. I will start the approval for Entyvio at [facility] infusion [phone]. This will be a week 0,2,6 then every 8 week infusion. 4. We will get records of your EGD/Colon with pathology reuslts form [facility] 03/2021. 5. Return to clinic in 2 months. Shreya Platt MD [facility] Gastroenterology and Inflammatory Bowel Disease CC: Ciera Saucedo, EVENT LIGHTING SPECIALIST No ref. provider found Orders Placed This Encounter ??? MRI ENTEROGRAPHY ??? CBC WITH DIFFERENTIAL ??? C-REACTIVE PROTEIN ??? COMPREHENSIVE METABOLIC PANEL ??? Emgality Pen 120 mg/mL Pen Injector ??? pantoprazole (PROTONIX) 20 mg Tablet, Delayed Release (E.C.) ??? Desogestrel-Ethinyl estradiol (Kariva, 28,) 0.15-0.02 mgx21 /0.01 mg x 5 tablet Current Outpatient Medications: ??? Emgality Pen 120 mg/mL Pen Injector, , Disp: , Rfl: ??? pantoprazole (PROTONIX) 20 mg Tablet, Delayed Release (E.C.), Take 40 mg by mouth daily., Disp:, Rfl: ??? Desogestrel-Ethinyl estradiol (Kariva, 28,) 0.15-0.02 mgx21 /0.01 mg x 5 tablet, every 24 hours., Disp: , Rfl: documented in this encounter Miscellaneous Notes * Patient Instructions - Shreya Platt MD - 05/25/2021 9:49 AM CDT Thank you for entrusting your healthcare to the physicians at [facility] Gastroenterology. Following your visit, you may receive a survey via email or [employer]. We encourage you to respond tothis confidential survey about your care. Your feedback helps us to provide quality service at every visit. Thank you for your help in making our practice meet higher expectations! Contact information: Shreya Platt MD [facility] Gastroenterology Clinic [address] [facility] [place] [address] Please add our numbers to your contact list. ? After hours exchange: [phone] IMPORTANT: The following information and instructions are from your visit today: 1. Get MR enterography at [facility] 2. Get labs at [facility] 3. I will start the approval for Entyvio at [facility] infusion [phone]. This will be a week 0,2,6 then every 8 week infusion. 4. We will get records of your EGD/Colon with pathology [facility] 03/2021. 5. Return to clinic in 2 months. Shreya Platt MD documented in this encounter Plan of Treatment Upcoming Encounters Date Type Department Care Team (Late st Contact Info) Description 09/22/2024 8:00 AM HEAD GRINDER Office Visit [facility] IBD and Gastroenterology Center [place] [address] [place] [address] Shreya Platt MD [address] [facility] [address] [place] [address] documented as of this encounter Procedures Procedure Name Priority Date/Time Associated Diagnosis Comments CBC WITH DIFFERENTIAL Routine 05/25/2021 10:11 AM CDT Crohn's disease of small and large intestines with complication C-REACTIVE PROTEIN Routine 05/25/2021 10 :11 AM CDT Crohn's disease of small and large intestines with complication COMPREHENSIVE METABOLIC PANEL Routine 05/25/2021 10:11 AM CDT Crohn's disease of small and large intestines with complication documented in this encounter Results * MRI ENTEROGRAPHY (06/15/2021 9:28 AM CDT) Anatomical Region Laterality Modality Abdomen Magnetic Resonan ce 06/15/2021 9:28 AM CDT Impressions 06/15/2021 11:00 AM CDT IMPRESSION: 1. Active inflammation involving an approximately 12 cm segment of terminal ileum without evidence of bowel obstruction, intra-abdominal abscess formation, or enteric fistula. DICTATION LOCATION: Location [address] [place] [address] 06/15/2021 11:00 AM CDT EXAMINATION: Abdominal MRI [...] enteric fistula. DICTATION LOCATION: Location 1 - [facility] Shreya Platt MD MR ORDERABLES * (ABNORMAL) COMPREHENSIVE METABOLIC PANEL (05/25/2021 10:11 AM CDT) GLUCOSE 99 65 - 139 mg/dL [facility] Comment: ? Non-fasting reference interval BUN 16 7 - 25 mg/dL [facility] CREATININE 0.80 0.50 - 1.10 mg/dL [facility] GFR 105 > OR = 60 mL/min/1. 73m2 [facility] GFR, 121 > OR = 60 mL/min/1. 73m2 [facility] BUN/CREAT RATIO NOT APPLICABLE 6 - 22 (calc) [facility] SODIUM 138 135 - 146 mmol/L [facility] POTASSIUM 4.6 3.5 - 5.3 mmol/L [facility] CHLORIDE 105 98 - 110 mmol/L [facility] CO2 27 20 - 32 mmol/L [facility] CALCIUM 9.0 8.6 - 10.2 mg/dL [facility] TOTAL PROTEIN 6.9 6.1 - 8.1 g/dL [facility] ALBUMIN 3.8 3.6 - 5.1 g/dL [facility] GLOBULIN 3.1 1.9 - 3.7 g/dL (calc) [facility] ALBUMIN/GLOBULI N RATIO 1.2 1.0 - 2.5 (calc) [facility] BILIRUBIN TOTAL 0.2 0.2 - 1.2 mg/dL [facility] ALKALINE PHOSPHATASE 65 31 - 125 U/L [facility] AST 9(L) 10 - 30 U/L [facility] ALT 12 6 - 29 U/L [facility] Comment: Test Performed at: [facility] ??[address] Yonny Connors D.O., MPH Blood 05/25/2021 10:1 1 AM CDT 05/25/2021 10:11 AM CDT Shreya Platt MD CHEMISTRY ORDERAB LES [facility] [address] [place] [address] * (ABNORMAL) C-REACTIVE PROTEIN (05/25/2021 10:11 AM CDT) CRP 14.6(H) <8.0 mg/L [facility] Comment: FASTING:NO FASTING: NO Test Performed at: [facility] [address] [place], [place] ??[address] Yonny Connors D.O., MPH Blood 05/25/2021 10:1 1 AM CDT 05/25/2021 10:11 AM CDT Shreya Platt MD CHEMISTRY ORDERAB LES Performing Organization Address City/[facility] Co de Phone Number [facility] [address] [place] [address] * CBC WITH DIFFERENTIAL (05/25/2021 10:11 AM CDT) WBC 6.0 3.8 - 10.8 Thousand/u L [facility] RBC 4.40 3.80 - 5.10 Million/uL [facility] HEMOGLOBIN 12.0 11.7 - 15.5 g/dL [facility] HEMATOCRIT 37.2 35.0 - 45.0 % [facility] MCV 84.5 80.0 - 100.0 fL [facility] MCH 27.3 27.0 - 33.0 pg [facility] MCHC 32.3 32.0 - 36.0 g/dL [facility] RDW 12.4 11.0 - 15.0 % [facility] PLATELETS 286 140 - 400 Thousand/u L [facility] MPV 10.9 7.5 - 12.5 fL [facility] NEUTROPHIL ABSOLUTE 3,264 1,500 - 7,800 cells/uL [facility] LYMPHOCYTE ABSOLUTE 2,328 850 - 3,900 cells/uL [facility] MONOCYTE ABSOLUTE 330 200 - 950 cells/uL [facility] EOSINOPHIL ABSOLUTE 60 15 - 500 cells/uL [facility] BASOPHILS ABSOLUTE 18 0 - 200 cells/uL [facility] NEUTROPHIL 54.4 % [facility] LYMPHOCYTES 38.8 % [facility] MONOCYTE 5.5 % [facility] EOSINOPHILS 1.0 % [facility] BASOPHILS 0.3 % [facility] Comment: Test Performed at: [facility] [address] [place], [place] ??[address] Marce Pittman Blood 05/25/2021 10:1 1 AM CDT 05/25/2021 10:11 AM CDT Shreya Platt MD HEMATOLOGY ORDERA BLES [facility] [address] [place] [address] documented in this encounter Visit Diagnoses Diagnosis Crohn's disease of small and large intestines with complication- Primary Crohn's disease of small intestine without complication Regional enteritis of small intestine Crohn's disease of small intestine with complication Regional enteritis of small intestine Crohn's disease of small intestine without complication Regional enteritis of small intestine documented in this encounter Care Teams Data Acquisition Technician Relationship Specialty Start Date End Date Ciera Saucedo FNP [address] [place] [address] PCP - General Nurse Practitioner Family 05/24/21 documented as of this encounter
--- OUTSIDE RECORDS SUMMARY | 2024-08-13 20:08 | XMS_ITS | Encounter Summary ---
Author Organization [facility] Address [address] [place] [address] Care Team Providers Care Meat Clerk Name Role Phone Ciera Saucedo BARBI Primary Care Provider Encounter Details Date Type Department Care Team (Late st Contact Info) Description 07/11/2021 Chart Note [facility] Gastroenterology [place] [id number] [address] Emerald Valdez Social History Tobacco [...] AM CDT documented as of this encounter Progress Notes * Shreya Platt MD - 07/11/2021 1:22 PM CST IBD Attending Update 20 y.o. with hx of severe ileal crohn's. Vedolizumab was denied by her insurance which has caused significant delay. The recommendation was to try infliximab first. After submitting auth for infliximab this also got denied stating she needs to fail prednisone. She has been started on prednisone andremains to do very poorly with severe symptoms. It is inevitable she will require hospitalization in the near future if we cannot get her on biologics. We will resubmit the authorization for infliximab with hopes for [facility] approval.. Shreya Platt MD [facility] Inflammatory Bowel Disease [place] SERVICE TECHNICIAN * Emerald Valdez - 07/11/2021 9:40 AM CST Patient just needs a progress note of patient being on Prednisone , So Freddie can re-submit PA for infliximab To insurance [place] SERVICE TECHNICIAN documented in this encounter Plan of Treatment Upcoming Encounters Date Type Department Care Team (Late st Contact Info) Description 09/22/2024 8:00 AM RETAIL SERVICE TECHNICIAN Office Visit [facility] IBD and Gastroenterology Center [place] [address] [place] [address] Shreya Platt MD [address] [place] [address] [place] [address] documented as of this encounter Visit Diagnoses Not on filedocumented in this encounter Care Teams Meat Clerk Relationship Specialty Start Date End Date Ciera Saucedo FNP [address] [place] [address] PCP - General Nurse Practitioner Family 05/24/21 documented as of this encounter
--- OUTSIDE RECORDS SUMMARY | 2024-08-13 20:08 | XMS_ITS | Encounter Summary ---
Author Organization [facility] Address [address] [place] [address] Care Team Providers Care Monitor And Storage Bin Tender Name Role Phone Ciera Saucedo BARBI Primary Care Provider [phone] Encounter Details Date Type Department Care Team (Late Contact Info) Description 06/14/[address] [facility] Gastroenterology [facility] [address] [facility] [address] [place] [address] Shreya Platt MD [address] [place] [address] Crohn's disease of small and [...] (Late Contact Info) Description 09/22/2024 8:00 AM SAWING AND ASSEMBLY SUPERVISOR Office Visit [facility] IBD and Gastroenterology [facility] [address] [place] [address] Shreya Platt MD [address] [facility] [address] [place] [address] documented as of this encounter Visit Diagnoses Diagnosis Crohn's disease of small and large intestines with complication- Primary documented in this encounter Care Teams Monitor And Storage Bin Tender Relationship Specialty Start Date End Date Ciera Saucedo FNP [address] [place] [address] PCP - General Nurse Practitioner Family 05/24/21 documented as of this encounter
--- OUTSIDE RECORDS SUMMARY | 2024-08-13 20:08 | XMS_ITS | Encounter Summary ---
Author Organization [facility] Address [address] [place] [address] Care Team Providers Care J2Ee Programmer Name Role Phone EhsanCiera copeland BARBI Primary Care Provider [phone] Reason for Referral * Outpatient Services (Routine) - Closed Specialty Diagnoses / Procedures Referred By Contac t Referred To Contact Hematology and Oncology Diagnoses Crohn's disease of small and large intestines with complication Procedures INFUSION THERAPY CT INJECTION, VEDOLIZUMAB Shreya Bray MD [address] [facility] [address] [place] [address] [facility] [address] [place] [address] [address] [place] [address] Referral ID Status Reason Start Date Expiration Date Visits Re quested Visits Authorized [id number] Closed 05/25/2021 05/25/2022 1 0 Encounter Details Date Type Department Care Team (Latest Contact Info) Description 05/25/2021 Orders Only [facility] Gastroenterology [facility] [address] [facility] [address] [place] [address] Emerald Valdez Crohn's disease of [...] st Contact Info) Description 09/22/2024 8:00 AM ELECTRIC SERVICEMAN Office Visit [facility] IBD and Gastroenterology Center [place] [address] [facility] [address] [place] [address] Shreya Platt MD [address] [place] [address] documented as of this encounter Visit Diagnoses Diagnosis Crohn's disease of small and large intestines with complication- Primary documented in this encounter Care Teams J2Ee Programmer Relationship Specialty Start Date End Date Ciera Saucedo FNP [address] [place] [address] PCP - General Nurse Practitioner Family 05/24/21 documented as of this encounter
--- OUTSIDE RECORDS SUMMARY | 2024-08-13 20:12 | XMS_ITS | Encounter Summary ---
Author Organization [facility] Healthcare Address [address] [place] [address] Care Team Providers Care Concrete Carpenter Name Role Phone Gucci Manrique MD Primary Care Provider [phone] [place]gettstownConcetta schwab MD Unavailable [phone] Encounter Details Date Type Department Care Team (Late st Contact Info) Description 05/21/2024 Home Care Visit [facility] [address] [address] [address] [place] [address] Bipin Leiva RN CASE COMMUNICATION Social History Tobacco Use Types Packs/Day Years Used Date Smoking Tobacco: Never Smokeless Tobacco: Never Alcohol Use Standard Drinks/Week Comments Yes 0 (1 standard drink = 0.6 oz pur e alcohol) OASIS D0700: Social Isolation Answer Da te Recorded Frequency of experiencing loneliness or isolatio n Never 04/22/2024 AUDIT-C Answer Date Recorded Frequency of Alcohol Consumption Not on file 10/10/2023 Q2: How many drinks containi ng alcohol do you have on a typical day when you are drinking? 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
--- OUTSIDE RECORDS SUMMARY | 2024-08-13 20:12 | XMS_ITS | Encounter Summary ---
Author Organization [facility] Healthcare Address [address] [place] [address] Care Team Providers Care Reporting Manager Name Role Phone Gucci Manrique MD Primary Care Provider + [phone] EulessConcetta MD Unavailable [phone] Reason for Visit * Medication Authorization (Routine) - Pending Review Specialty Diagnoses / Procedures Referred By Carolina t Referred To Contact Shreya Platt MD [address] 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 Gender Identity Not on file Sexual Orientation Not on file 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 Not on file Not on file documented as of this encounter Last Filed Vital Signs Vital Sign Reading Time Taken Comments Blood Pressure 108/64 04/22/2024 10:30 AM CDT Pulse 80 04/22/2024 10:30 AM CDT Temperature 36.6 ??C (97.9 ??F) 04/22/2024 10:30 AM C DT Respiratory Rate 16 04/22/2024 10:30 AM CDT Oxygen Saturation 99% 04/22/2024 10:30 AM CDT Inhaled Oxygen Concentration - - Weight 90.7 kg (200 lb) 04/22/2024 9:20 AM CDT Height - - Body Mass Index 34.33 10/10/2023 12:29 PM PHOTO JOURNALIST documented in this encounter Miscellaneous Notes * Home Health/Infusion SBAR - Gregor Ken RN - 04/22/2024 9:00 AM CDT SITUATION Focus of Care: Crohn's disease with monthly infusions of Inflectra. Caregivers available: None present. BACKGROUND Pertinent Medical History/Hospitalizations: Crohn's disease. Patient currently . Prior Level of Functioning: Independant. Current Living Conditions/Safety Hazards: None reported. ASSESSMENT Abnormal assessment findings: None. Medication Issues: All reviewed and tolerating well. Re-hospitalization risk: Low. Barriers to care/social determinants: None. RECOMMENDATIONS POC confirmed with Dr. Shreya Platt Plan for my discipline: Monthly and PRN SN visits for assessment, PIV and med spec. Other disciplines ordered/recommended: None. Supply/HME/equipment needs or issues: None. Follow ups needed: Patient is on MY CHART and has all available appointments. * Home Health Plan for Next Visit - Gregor Ken RN - 04/22/2024 9:00 AM CDT Reason for today's visit: RECERT, assessment, PIV, dose med. Discuss plan of care with patient. Discharge planning ongoing. Plan for next visit: Assessment, PIV, dose med. documented in this encounter Plan of Treatment Not on file documented as of this encounter Visit Diagnoses Not on filedocumented in this encounter Administered Medications Active Administered Medications - up to 3 most recent administrations Medication Order MAR Action Action Date Dose Rate Site 0.9 % sodium chloride ([facility] sodium chloride 0.9%) injection 10 mL, intravenous, As needed, line care, Starting on Sun04/22/24 at 1243, Indications: Maintain Patency of Indwelling Vascular CatheterIndications:Maintain Patency of Indwelling Vascular Catheter Given 04/22/2024 10:30 AM CDT 10 mL Given 04/22/2024 9:15 AM CDT 10 mL Inactive Administered Medications - up to 3 most recent administrations Medication Order MAR Action Action Date Dose Rate Site inFLIXimab-dyyb 500 mg in sodium chloride 0.9% 0.9% IVPB 500 mg, intravenous, Every 4 weeks, First dose on Sun04/22/24 at 1330, For 170 days, Infuse 500mg Infliximab in 250mL Normal Saline over 1 hour with 1.2 micron filter every 4 weeks., Indications: Crohn's DiseaseIndications:Crohn's Disease Given 04/22/2024 9:25 AM CDT 500 mg documented in this encounter Home Health Visit - Care Plan Visit Details Visit Type -SN Non-OASIS Rec ert Discipline -Half-Way Problems Problem Description Start Date Status Goals Interve ntions Medications Disciplines: Half-Way Management of medications 10/28/2023 Active 1 goal linked to scheduled/documen mauricio intervention 1 goal intervention scheduled/documen mauricio in this visit Monitor patient's vital signs every home health visit Disciplines: Skilled Disciplines, SN, PT, OT, SAXOPHONE TEACHER, ENGRAVING SUPERVISOR Monitor patient's vital signs every visit. 10/28/2023 Active 1 goal linked to scheduled/documen mauricio intervention 1 goal intervention scheduled/documen mauricio in this visit Safety concerns Disciplines: Skilled Disciplines Alteration in safety 10/28/2023 Active 1 goal linked to scheduled/documen mauricio intervention 1 goal intervention scheduled/documen mauricio in this visit Specialty Medication - General Disciplines: Half-Way Skilled Nurse to provide safe assessment of patient prior to use of general specialty medication 10/28/2023 Active - 3 problem interventions scheduled/documen mauricio in this visit Medications Disciplines: Half-Way Management of IV Medications 10/28/2023 Active - 1 problem intervention scheduled/documen mauricio in this visit Learning/Teachin g Needs - IV Therapy Disciplines: Half-Way Teaching and learning needs for IV therapy 10/28/2023 Active - 3 problem interventions scheduled/documen mauricio in this visit Goals Goal Associated Problem Outcome Goal Met? Visit Notes Understand and follow medication therapy Description: Patient will verbalize understanding of purpose, side effects, and medication regimen by the end of the episode of care. Medications No Measure vital signs during every home health visit during episode of care Description: Skilled Nurse to measure vital signs during each visit throughout the episode of care. Monitor patient's vital signs every home health visit No Demonstrate use of safety precautions Description: Patient will maintain a safe home environment as evidenced by remaining free from injury and demonstrates use of safety precautions. Safety concerns No Interventions Intervention Associated Problem/Goal Status Variance Visit Notes Instruct on High Risk Medications Description: Instruct patient on high-risk/high alert medications, specifically Inflectra. Problem:Medications Goal:Understand and follow medication therapy Completed SN instructed patient on high-risk/high alert medications, specifically Inflectra. Monitor Vital Signs Description: Monitor blood pressure, pulse, oxygen saturation, respirations, and temperature. Problem:Monitor patient's vital signs every home health visit Goal:Measure vital signs during every home health visit during episode of care Completed VSS, afebrile with O2 sat at 98% Assess safety Description: Assess patient safety Problem:Safety concerns Goal:Demonstrate use of safety precautions Completed Patient seen in treatment room at our [place] office but reports feeling safe at home and reports no issues. Learning Teaching Needs Description: Skilled Nurse to monitor vital signs throughout the infusion and upon completion of the infusion. Skilled Nurse to assess patient following infusion. If stable, patient may be discharged home. Problem:Specialty Medication - General Completed Patient tolerated the infusion well and reported no problems with last infusion and no medication changes. Patient aware to call SN or MD with any issues or problems. Pre Medication Assessment Description: Skilled Nurse to complete infusion checklist. Skilled Nurse to monitor vital signs. If patients has a temperature greater than 100 degrees F (37.8 C), notify the pharmacist/physician. Skilled Nurse to obtain IV access for infusion. Problem:Specialty Medication - General Completed Patient tolerated last infusion well and reports no problems or medication changes. VSS, afebrile with O2 sat at 98% Learning Teaching Needs Description: Skilled Nurse to instruct patient on the potential side effects of the medication. Problem:Specialty Medication - General Completed Patient aware of SE and will call SN or MD with any issues or problems. Instruct on Medication Management Description: Instruct patient in medication administration, purpose, dosages, preparation, scheduling, side effects, food/drug interactions, drug allergies, and potential complications. Medications instructed on: Inflectra. Problem:Medications Completed SN instructed patient in medication administration, purpose, dosages, preparation, scheduling, side effects, food/drug interactions, drug allergies, and potential complications. Medications instructed on: Inflectra. Instruct Infection Prevention Description: Instruct patient in strategies to prevent infection: frequent/proper hand-washing techniques, [place] precautions, avoid crowds and persons with known infections, staying current with immunizations, s/s of infection, use of antibiotics and encourage adequate diet and fluid intake. Instruct patient on how to recognize signs and symptoms of infection and when to notify HH nurse and/or physician. Problem:Learning/Teac adi Needs - IV Therapy Completed SN instructed patient in strategies to prevent infection: frequent/proper hand-washing techniques, [place] precautions, avoid crowds and persons with known infections, staying current with immunizations, s/s of infection, use of antibiotics and encourage adequate diet and fluid intake. Instruct patient on how to recognize signs and symptoms of infection and when to notify HH nurse and/or physician. Patient verbalized understanding. IV Pump Instruction Description: Instruct patient to use call button if IV becomes painful, or swelling/redness occur at IV site, or if pump alarms during infusion. Call button will be kept within reach of patient throughout infusion. Problem:Learning/Teac adi Needs - IV Therapy Completed Patient has call button and aware to use it for problems or issues, IV Access Care/Maintenance Description: Skilled Nurse will start PIV prior to each infusion and apply transparent sterile dressing to site. When infusion is completed and after observation period, SN will discontinue PIV, verify catheter is intact, apply pressure to site until hemostasis is achieved and apply small gauze dressing secured with tape to site prior to discharge. Type of line: PIV Problem:Learning/Teac adi Needs - IV Therapy Completed PIV placed on 1st attempt using a 24guage cath, med infused, line flushed and cath removed-intact. 2x2 and BandAid placed over the site. Patient tolerated the procedure well. documented in this encounter Care Teams Reporting Manager Relationship Specialty Start Date End Date Gucci Manrique MD PCP - General Family Medicine 07/06/20 ChikisConcetta MD [address] [facility] [address] DIV MEDICAL ONCOLOGY, [facility] [address] [place] [address] Surgeon Breast Surgery 08/28/23 documented as of this encounter
--- OUTSIDE RECORDS SUMMARY | 2024-08-13 20:12 | XMS_ITS | Encounter Summary ---
Author Organization [facility] Healthcare Address [address] [place] [address] Care Team Providers Care Knitter Hand Name Role Phone Gucci Manrique MD Primary Care Provider + [phone] [place], Concetta Bowden MD Unavailable [phone] Encounter Details Date Type Department Care Team (Late st Contact Info) Description 01/08/2024 Orders Only [facility] Home Care Services [address] [place] [address] Ned Brasher, [facility] Social History Tobacco Use Types Packs/Day Years Used Date Smoking Tobacco: Never Smokeless Tobacco: Never Alcohol Use Standard Drinks/Week Comments Yes 0 (1 standard drink = 0.6 oz pur e alcohol) OASIS D0700: Social Isolation Answer Da te Recorded Frequency of experiencing loneliness or isolatio n Never 10/28/2023 AUDIT-C Answer Date Recorded Frequency of Alcohol Consumption Not on file 10/10/2023 Q2: How many drinks containi ng alcohol do you have on a typical day when you are drinking? 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 01/08/2024 loratadine 10 mg capsuleIndications :infusion reaction prophylaxis Take 10 mg by mouth every 4 (four) weeks Take by mouth 30 minutes prior to infusion. 01/08/2024 4 inFLIXimab-dyyb 500 mg in sodium chloride 0.9% 0.9% IVPBIndications:Cr ohn's Disease Infuse 500 mg into a venous catheter every 4 (four) weeks Infuse 500mg Infliximab in 250mL Normal Saline over 1 hour with 1.2 micron filter every 4 weeks. 01/08/2024 4 documented in this encounter Progress Notes * Ned Brasher, [facility] - 01/08/2024 12:[address] Shreya Platt/ Ned Brasher Pharm D Following Pharmacist: Ned Brasher Pharm D Maintain IV access via PIV line with 10ml normal saline for patency per established protocol. Check vital signs (Temp, HR, RR, BP) prior to infusion, every 30 minutes during infusion, and at discharge. Record patient's weight prior to each infusion. Notify physician for a weight gain/loss greater than 10% ([phone]). Current weight as of 10/10/23: 96.2 kg. Premedicate patient 30 minutes before infusion with: 1000mg of Acetaminophen by mouth as needed 10mg of Loratadine by mouth as needed Infuse 500mg (5mg/kg) Infliximab in 250mL Normal Saline over 1 hour at 250mL/hr with 1.2 micron filter every 4 weeks. Slow or stop infusion for infusion reaction, treat per facility protocol, and notify Dr. Platt's office. Remove IV access at the end of each infusion. Observe patient for 30 minutes after infusion is completed for urticaria, pruritus, or other infusion related reactions. LABs: None at this time LOT: 6 doses Please provide 1 longterm visit every 4 weeks for 26 weeks for patient assessment, teaching,line access or PIV insertion, drug administration, and lab work with 6 PRN visits for additional drug administrations during induction therapy or for recertifications that fall out of range. documented in this encounter Plan of Treatment Not on file documented as of this encounter Visit Diagnoses Not on filedocumented in this encounter Discontinued Medications Medication Sig Discontinue Reason Start Date End Da te inFLIXimab-dyyb 500 mg in sodium chloride 0.9% 0.9% IVPBIndications:Crohn 's Disease Infuse 500 mg into a venous catheter every 4 (four) weeks Infuse 500mg Infliximab in 250mL Normal Saline over 1 hour with 1.2 micron filter every 4 weeks. Reorder 07/02/2023 01/08/2024 loratadine 10 mg capsuleIndications:in fusion reaction prophylaxis Take 10 mg by mouth every 4 (four) weeks Please give 10mg of loratadine (Claritin) 30 minutes prior to Inflectra infusion Reorder 07/02/2023 01/08/2024 acetaminophen (TYLENOL) 500 mg tabletIndications:inf usion reaction prophylaxis Take 2 tablets (1,000 mg total) by mouth every 4 (four) weeks Please give 1000mg of acetaminophen (Tylenol) 30 minutes prior to Inflectra infusion Reorder 07/02/2023 01/08/2024 documented as of this encounter Care Teams Knitter Hand Relationship Specialty Start Date End Date Gucci Manrique MD PCP - General Family Medicine 07/06/20 Concetta Diop MD [address] [facility] [address] DIV IM MEDICAL ONCOLOGY, [facility] [address] [place] [address] Surgeon Breast Surgery 08/28/23 documented as of this encounter
--- OUTSIDE RECORDS SUMMARY | 2024-08-13 20:12 | XMS_ITS | Encounter Summary ---
Author Organization [facility] Healthcare Address [address] [place] [address] Care Team Providers Care Shochet Name Role Phone Gucci Manrique MD Primary Care Provider + [phone] [place], Concetta Bowden MD Unavailable [phone] Reason for Visit * Reason Comments Crohn's Disease * Medication Authorization (Routine) - Pending Review Specialty Diagnoses / Procedures Referred By Contkarthikeyan t Referred To Contact Shreya Platt MD [address] [facility] [address] [place] [address] Phone: tel: fax: Referral ID Status Reason Start Date Expiration Date V isits Requested Visits Authorized [id number] Pending Review 03/25/2024 04/24/2025 1 1 Encounter Details Date Type Department Care Team (Latest Contact Info) Description 03/25/2024 9:00 AM CDT Home Care Visit [facility] [address] [address] [address] [place] [address] Dipti Loya RN SN INFUSION TREATMENT ROOM Social History Tobacco Use Types Packs/Day Years [...] on file Legal Sex 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 Gender Identity Not on file Sexual Orientation Not on file 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 Not on file Not on file documented as of this encounter Last Filed Vital Signs Vital Sign Reading Time Taken Comments Blood Pressure 114/52 03/25/2024 11:00 AM CDT Pulse 78 03/25/2024 11:00 AM CDT Temperature 36.6 ??C (97.9 ??F) 03/25/2024 11:00 AM C DT Respiratory Rate 17 03/25/2024 11:00 AM CDT Oxygen Saturation 100% 03/25/2024 11:00 AM CDT Inhaled Oxygen Concentration - - Weight 93.4 kg (206 lb) 03/25/2024 10:00 AM CDT Height - - Body Mass Index 35.36 10/10/2023 12:29 PM CORPORATE GIVING MANAGER documented in this encounter Miscellaneous Notes * Home Health Plan for Next Visit - Dipti Loya RN - 03/25/2024 10:09 AM CDT Reason for today's visit assessment,instruction, Inflectra infusion Discuss plan of care with pt verb good understanding Discharge planning indef Plan for next visit scheduled inflectra infusion 04/22/2024 documented in this encounter Plan of Treatment Not on file documented as of this encounter Visit Diagnoses Not on filedocumented in this encounter Administered Medications Active Administered Medications - up to 3 most recent administrations Medication Order MAR Action Action Date Dose Rate Site 0.9 % sodium chloride ([facility] sodium chloride 0.9%) injection 10 mL, intravenous, As needed, line care, Starting on Sun03/25/24 at 1005, Indications: Maintain Patency of Indwelling Vascular CatheterIndications:Maintain Patency of Indwelling Vascular Catheter Given 03/25/2024 10:00 AM CDT 10 mL Inactive Administered Medications - up to 3 most recent administrations Medication Order MAR Action Action Date Dose Rate Site inFLIXimab-dyyb 500 mg in sodium chloride 0.9% 0.9% IVPB 500 mg, intravenous, Every 4 weeks, First dose on Sun03/25/24 at 2130, For 170 days, Infuse 500mg Infliximab in 250mL Normal Saline over 1 hour with 1.2 micron filter every 4 weeks., Indications: Crohn's DiseaseIndications:Crohn's Disease Given 03/25/2024 10:00 AM CDT 500 mg documented in this encounter Home Health Visit - Care Plan Visit Details Visit Type -SN Infusion Gail tment Room Discipline -Fci Problems Problem Description Start Date Status Goals Interve ntions Medications Disciplines: Fci Management of medications 10/28/2023 Active 1 goal linked to scheduled/documen mauricio intervention 1 goal intervention scheduled/documen mauricio in this visit Monitor patient's vital signs every home health visit Disciplines: Skilled Disciplines, SN, PT, OT, GUEST SERVICES ASSISTANT, OB NURSE Monitor patient's vital signs every visit. 10/28/2023 Active 1 goal linked to scheduled/documen mauricio intervention 1 goal intervention scheduled/documen mauricio in this visit Safety concerns Disciplines: Skilled Disciplines Alteration in safety 10/28/2023 Active 1 goal linked to scheduled/documen mauricio intervention 1 goal intervention scheduled/documen mauricio in this visit Specialty Medication - General Disciplines: Fci Skilled Nurse to provide safe assessment of patient prior to use of general specialty medication 10/28/2023 Active - 3 problem interventions scheduled/documen mauricio in this visit Medications Disciplines: Fci Management of IV Medications 10/28/2023 Active - 1 problem intervention scheduled/documen mauricio in this visit Learning/Teachin g Needs - IV Therapy Disciplines: Fci Teaching and learning needs for IV therapy 10/28/2023 Active - 4 problem interventions scheduled/documen mauricio in this visit [...] Inflectra. Problem:Medications Goal:Understand and follow medication therapy Scheduled Monitor Vital Signs Description: Monitor blood pressure, pulse, oxygen saturation, respirations, and temperature. Problem:Monitor patient's vital signs every home health visit Goal:Measure vital signs during every home health visit during episode of care Completed VSS Assess safety Description: Assess patient safety Problem:Safety concerns Goal:Demonstrate use of safety precautions Scheduled Learning Teaching Needs Description: Skilled Nurse to monitor vital signs throughout the infusion and upon completion of the infusion. Skilled Nurse to assess patient following infusion. If stable, patient may be discharged home. Problem:Specialty Medication - General Scheduled Pre Medication Assessment Description: Skilled Nurse to complete infusion checklist. Skilled Nurse to monitor vital signs. If patients has a temperature greater than 100 degrees F (37.8 C), notify the pharmacist/physician. Skilled Nurse to obtain IV access for infusion. Problem:Specialty Medication - General Scheduled Learning Teaching Needs Description: Skilled Nurse to instruct patient on the potential side effects of the medication. Problem:Specialty Medication - General Scheduled Instruct on Medication Management Description: Instruct patient in medication administration, purpose, dosages, preparation, scheduling, side effects, food/drug interactions, drug allergies, and potential complications. Medications instructed on: Inflectra. Problem:Medications Completed Patient verb good understanding of inflectra medication admin, indication, dosage, preparation, scheduling, side effects, food/drug interactions, and potential complications. IV Discontinuation Description: Skilled Nurse will remove PIV following infusion per MD order and facility protocol, verifying catheter is intact, applying pressure to site until hemostasis is achieved and apply small gauze dressing secured with tape to site. Problem:Learning/Teac adi Needs - IV Therapy Completed Instruct Infection Prevention Description: Instruct patient in strategies to prevent infection: frequent/proper hand-washing techniques, [place] precautions, avoid crowds and persons with known infections, staying current with immunizations, s/s of infection, use of antibiotics and encourage adequate diet and fluid intake. Instruct patient on how to recognize signs and symptoms of infection and when to notify HH nurse and/or physician. Problem:Learning/Teac adi Needs - IV Therapy Scheduled IV Pump Instruction Description: Instruct patient to use call button if IV becomes painful, or swelling/redness occur at IV site, or if pump alarms during infusion. Call button will be kept within reach of patient throughout infusion. Problem:Learning/Teac adi Needs - IV Therapy Scheduled IV Access Care/Maintenance Description: Skilled Nurse will [...] PIV Problem:Learning/Teac adi Needs - IV Therapy Scheduled documented in this encounter Care Teams Shochet Relationship Specialty Start Date End Date Gucci Manrique MD PCP - General Family Medicine 07/06/20 Concetta Diop MD [address] [facility] [address] DIV MEDICAL ONCOLOGY, [facility] [address] [place] [address] Surgeon Breast Surgery 08/28/23 documented as of this encounter
--- OUTSIDE RECORDS SUMMARY | 2024-08-13 20:12 | XMS_ITS | Encounter Summary ---
Author Organization [facility] Healthcare Address [address] [place] [address] Care Team Providers Care Net Architect Name Role Phone Gucci Manrique MD Primary Care Provider + [phone] [place], Concetta Bowden MD Unavailable [phone] Reason for Visit * Reason Comments Crohn's Disease * Medication Authorization (Routine) - Pending Review Specialty Diagnoses / Procedures Referred By Contkarthikeyan t Referred To Contact Shreya Platt MD [address] [facility] [address] [place] [address] Phone: tel: fax: Referral ID Status Reason Start Date Expiration Date V isits Requested Visits Authorized [id number] Pending Review 05/05/2024 06/04/2025 1 1 Encounter Details Date Type Department Care Team (Latest Contact Info) Description 07/16/2024 9:00 AM OUTREACH REP Home Care Visit 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 Not on file Not on file documented as of this encounter Last Filed Vital Signs Vital Sign Reading Time Taken Comments Blood Pressure 123/71 07/16/2024 11:38 AM OUTREACH REP Pulse 82 07/16/2024 11:38 AM OUTREACH REP Temperature 36.4 ??C (97.6 ??F) 07/16/2024 11:[address] Respiratory Rate 16 07/16/2024 11:38 AM OUTREACH REP Oxygen Saturation 100% 07/16/2024 11:38 AM OUTREACH REP Inhaled Oxygen Concentration - - Weight - - Height 162.6 cm (5' 4 ) 07/16/2024 10:13 AM OUTREACH REP Body Mass Index - - documented in this encounter Miscellaneous Notes * Home Health Visit Narrative - Bipin Leiva, AMADOU - 07/16/2024 12:00 AM CST Patient Covid screen performed prior to arrival. Assessed patient upon arrival for IV infusion of Inflectra. All findings and vital signs WNL. PIV started without difficulty. No signs/symptoms of bleeding, hematoma, or infiltration. Paitient declined ordered premeds. Infusion completed without incident. Patient's vital signs assessed throughout and upon infusion completion. WNL. Patient declined post infusion observation. PIV removed intact without complications. No signs/ symptoms of bleeding or hematoma. Pressure held to site until hemostasis achieved. Gauze and paper tape applied to site. Patient's questions answered. Patient discharged to home, ambulatory and in stable condition with instruction to contact MD or EMS if complications occur. Patient verbalizes understanding. Next Inflectra infusion scheduled at [facility] for 08/13/2024 @ 0900. EACH REP documented in this encounter Plan of Treatment Not on file documented as of this encounter Visit Diagnoses Not on filedocumented in this encounter Administered Medications Active Administered Medications - up to 3 most recent administrations Medication Order MAR Action Action Date Dose Rate Site 0.9 % sodium chloride (INV-[facility] sodium chloride 0.9%) injection 10 mL, intravenous, As needed, line care, Starting on Sun07/16/24 at 1203, Indications: Maintain Patency of Indwelling Vascular CatheterIndications:Maint ain Patency of Indwelling Vascular Catheter Given 07/16/2024 10:35 AM OUTREACH REP 10 mL Left Antecubital inFLIXimab-dyyb (INFLECTRA) injection 500 mg 500 mg, intravenous, at 5 mL/hr, Every 4 weeks, First dose on Sun05/05/24 at 0000, 250ml/hr Use filter 1.2 micron or less, Indications: Crohn's DiseaseIndications:Crohn' s Disease Given 07/16/2024 10:35 AM OUTREACH REP 500 mg Left Antecubital documented in this encounter Orders Medications Ordered That Javier ht Not Have Been Administered Count Last Ordered Date First Ordered Date inFLIXimab-dyyb (INFLECTRA) injection 500 mg 1 07/27/2024 documented in this encounter Home Health Visit - Care Plan Visit Details Visit Type -SN Infusion Gail tment Room Discipline -Fdc Problems Problem Description Start Date Status Goals Interve ntions Medications Disciplines: Fdc Management of medications 10/28/2023 Active 1 goal linked to scheduled/documen mauricio intervention 1 goal intervention scheduled/documen mauricio in this visit Monitor patient's vital signs every home health visit Disciplines: Skilled Disciplines, SN, PT, OT, ELEMENTARY SUBSTITUTE TEACHER, CONSTRUCTION SPECIALIST Monitor patient's vital signs every visit. 10/28/2023 Active 1 goal linked to scheduled/documen mauricio intervention 2 goal interventions scheduled/documen mauricio in this visit Safety concerns Disciplines: Skilled Disciplines Alteration in safety 10/28/2023 Active 1 goal linked to scheduled/documen mauricio intervention 1 goal intervention scheduled/documen mauricio in this visit Specialty Medication - General Disciplines: Fdc Skilled Nurse to provide safe assessment of patient prior to use of general specialty medication 10/28/2023 Active - 3 problem interventions scheduled/documen mauricio in this visit Medications Disciplines: Fdc Management of IV Medications 10/28/2023 Active - 1 problem intervention scheduled/documen mauricio in this visit Learning/Teachin g Needs - IV Therapy Disciplines: Fdc Teaching and learning needs for IV therapy [...] Problem:Medications Goal:Understand and follow medication therapy Completed Instructed patient on high-risk/high alert medications, specifically Inflectra. Patient verbalized understanding. Monitor Vital Signs Description: Monitor blood pressure, pulse, oxygen saturation, respirations, and temperature. Problem:Monitor patient's vital signs every home health visit Goal:Measure vital signs during every home health visit during episode of care Completed Monitored blood pressure, pulse, oxygen saturation, respirations, and temperature. Supervising Discipline notification of abnormal vital signs Description: Use standardized clinical guidelines of abnormal vitals signs to report to supervising discipline. (HR 50-110, SBP 90-160, DBP 40-90, O2Sat 88-100%, temporal temp less than 101.5) Problem:Monitor patient's vital signs every home health visit Goal:Measure vital signs during every home health visit during episode of care Completed Used standardized clinical guidelines of abnormal vitals signs to report to supervising discipline. (HR 50-110, SBP 90-160, DBP 40-90, O2Sat 88-100%, temporal temp less than 101.5) Assess safety Description: Assess patient safety Problem:Safety concerns Goal:Demonstrate use of safety precautions Completed Patient verbalized no safety concerns. Learning Teaching Needs Description: Skilled Nurse to monitor vital signs throughout the infusion and upon completion of the infusion. Skilled Nurse to assess patient following infusion. If stable, patient may be discharged home. Problem:Specialty Medication - General Completed Skilled Nurse monitored vital signs throughout the infusion and upon completion of the infusion. Skilled Nurse assessed patient following infusion. Patient was discharged home. Pre Medication Assessment Description: Skilled Nurse to complete infusion checklist. Skilled Nurse to monitor vital signs. If patients has a temperature greater than 100 degrees F (37.8 C), notify the pharmacist/physician. Skilled Nurse to obtain IV access for infusion. Problem:Specialty Medication - General Completed Skilled Nurse completed infusion checklist. Skilled Nurse monitored vital signs. All VS WNL. Skilled Nurse obtained IV access for infusion. Learning Teaching Needs Description: Skilled Nurse to instruct patient on the potential side effects of the medication. Problem:Specialty Medication - General Completed Skilled Nurse instructed patient on the potential side effects of the medication. Patient verbalized understanding. Instruct on Medication Management Description: Instruct patient in medication administration, purpose, dosages, preparation, scheduling, side effects, food/drug interactions, drug allergies, and potential complications. Medications instructed on: Inflectra. Problem:Medications Completed Instructed patient in medication administration, purpose, dosages, preparation, scheduling, side effects, food/drug interactions, drug allergies, and potential complications. Patient verbalized understanding. Instruct Infection Prevention Description: Instruct patient in strategies to prevent infection: frequent/proper hand-washing techniques, [place] precautions, avoid crowds and persons with known infections, staying current with immunizations, s/s of infection, use of antibiotics and encourage adequate diet and fluid intake. Instruct patient on how to recognize signs and symptoms of infection and when to notify HH nurse and/or physician. Problem:Learning/Teac adi Needs - IV Therapy Completed Instructed patient in strategies to prevent infection: frequent/proper hand-washing techniques, [place] precautions, avoid crowds and persons with known [...] Problem:Learning/Teac adi Needs - IV Therapy Completed Instructed patient to use call button if IV becomes painful, or swelling/redness occur at IV site, or if pump alarms during infusion. Patient verbalized understanding. Call button kept within reach of patient throughout infusion. IV Access Care/Maintenance Description: Skilled Nurse will [...] Problem:Learning/Teac adi Needs - IV Therapy Completed Skilled Nurse will start PIV prior to each infusion and apply transparent sterile dressing to site. When infusion is completed and after observation period, SN will discontinue PIV, verify catheter is intact, apply pressure to site until hemostasis is achieved and apply small gauze dressing secured with tape to site prior to discharge. Type of line: PIV IV Discontinuation Description: Skilled Nurse will remove PIV following infusion per MD order and facility protocol, verifying catheter is intact, applying pressure to site until hemostasis is achieved and apply small gauze dressing secured with tape to site. Problem:Learning/Teac adi Needs - IV Therapy Completed Skilled Nurse removed PIV following infusion per MD order and facility protocol, verifying catheter is intact, applying pressure to site until hemostasis is achieved and applied small gauze dressing secured with tape to site. documented in this encounter Care Teams Net Architect Relationship Specialty Start Date End Date Gucci Manrique MD PCP - General Family Medicine 07/06/20 Concetta Diop MD [address] [facility] DIV MEDICAL ONCOLOGY, [facility] [address] [place] [address] Surgeon Breast Surgery 08/28/23 documented as of this encounter
--- OUTSIDE RECORDS SUMMARY | 2024-08-13 20:12 | XMS_ITS | Encounter Summary ---
Author Organization [facility] Healthcare Address [address] [place] [address] Care Team Providers Care Farm Consultant Name Role Phone Gucci Manrique MD Primary Care Provider + [phone] [place], Concetta Bowden MD Unavailable [phone] Reason for Visit * Reason Comments Crohn's Disease * Medication Authorization (Routine) - Pending Review Specialty Diagnoses / Procedures Referred By Contkarthikeyan t Referred To Contact Shreya Platt MD [address] [facility] [address] [place] [address] Phone: tel: fax: Referral ID Status Reason Start Date Expiration Date V isits Requested Visits Authorized [id number] Pending Review 12/06/2023 01/04/2025 1 1 Encounter Details Date Type Department Care Team (Latest Contact Info) Description 12/04/2023 9:00 AM CDT Home Care Visit [facility] [address] [address] [address] [place] [address] Dipti Loya RN SN INFUSION TREATMENT ROOM [...] on file Legal Sex Female 12:12 AM DINING ROOM CASHIER Gender Identity Not on file Sexual Orientation Not on file 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 Not on file Not on file documented as of this encounter Last Filed Vital Signs Vital Sign Reading Time Taken Comments Blood Pressure 110/67 12/04/2023 11:05 AM CDT Pulse 58 12/04/2023 11:05 AM CDT Temperature 36.5 ??C (97.7 ??F) 12/04/2023 11:05 AM C DT Respiratory Rate 16 12/04/2023 11:05 AM CDT Oxygen Saturation 100% 12/04/2023 11:05 AM CDT Inhaled Oxygen Concentration - - Weight 96.2 kg (212 lb) 12/04/2023 9:35 AM CDT Height - - Body Mass Index 36.39 10/10/2023 12:29 PM DINING ROOM CASHIER documented in this encounter Miscellaneous Notes * Home Health Plan for Next Visit - Dipti Loya RN - 12/04/2023 10:27 AM CDT Reason for today's visit assessment, instruction, Inflectra infusion Discuss plan of care with pt verb good understanding Discharge planning indef Plan for next visit scheduled Inflectra infusion 01/01/2024 documented in this encounter Plan of Treatment Not on file documented as of this encounter Visit Diagnoses Not on filedocumented in this encounter Administered Medications Active Administered Medications - up to 3 most recent administrations Medication Order MAR Action Action Date Dose Rate Site 0.9 % sodium chloride (INV-[facility] sodium chloride 0.9%) injection 10 mL, intravenous, As needed, line care, Starting on Sun12/04/23 at 1024, Indications: Maintain Patency of Indwelling Vascular CatheterIndications:Maintain Patency of Indwelling Vascular Catheter Given 12/04/2023 10:05 AM CDT 20 mL Inactive Administered Medications - up to 3 most recent administrations Medication Order MAR Action Action Date Dose Rate Site acetaminophen (TYLENOL) 500 mg tablet 1,000 mg, oral, Every 4 weeks, First dose on [place] 12/06/23 at 1015, Please give 1000mg of acetaminophen (Tylenol) 30 minutes prior to Inflectra infusion, Indications: infusion reaction prophylaxisIndications:infusion reaction prophylaxis Given 12/04/2023 9:35 AM CDT 1,000 mg inFLIXimab-dyyb 500 mg in sodium chloride 0.9% 0.9% IVPB 500 mg, intravenous, Every 4 weeks, First dose on [place] 12/06/23 at 1015, Infuse 500mg Infliximab in 250mL Normal Saline over 1 hour with 1.2 micron filter every 4 weeks., Indications: Crohn's DiseaseIndications:Crohn's Disease Given 12/04/2023 10:05 AM CDT 500 mg loratadine 10 mg capsule 10 mg, oral, Every 4 weeks, First dose on [place] 12/06/23 at 1015, Please give 10mg of loratadine (Claritin) 30 minutes prior to Inflectra infusion, Indications: infusion reaction prophylaxisIndications:infusion reaction prophylaxis Given 12/04/2023 9:35 AM CDT 10 mg documented in this encounter Home Health Visit - Care Plan Visit Details Visit Type -SN Infusion Gail tment Room Discipline -Alf Problems Problem Description Start Date Status Goals Interve ntions Medications Disciplines: Alf Management of medications 10/28/2023 Active 1 goal linked to scheduled/documen mauricio intervention 1 goal intervention scheduled/documen mauricio in this visit Monitor patient's vital signs every home health visit Disciplines: Skilled Disciplines, SN, PT, OT, FINAL ASSEMBLER BOAT, MEDICAID ANALYST Monitor patient's vital signs every visit. 10/28/2023 Active 1 goal linked to scheduled/documen mauricio intervention 1 goal intervention scheduled/documen mauricio in this visit Safety concerns Disciplines: Skilled Disciplines Alteration in safety 10/28/2023 Active 1 goal linked to scheduled/documen mauricio intervention 1 goal intervention scheduled/documen mauricio in this visit Specialty Medication - General Disciplines: Alf Skilled Nurse to provide safe assessment of patient prior to use of general specialty medication 10/28/2023 Active - 3 problem interventions scheduled/documen mauricio in this visit Medications Disciplines: Alf Management of IV Medications 10/28/2023 Active - 1 problem intervention scheduled/documen mauricio in this visit Learning/Teachazucena g Needs - IV Therapy Disciplines: Alf Teaching and learning needs for IV therapy 10/28/2023 Active - 3 problem interventions scheduled/documetere martínez in this visit Goals Goal Associated Problem [...] Problem:Medications Completed Patient verb good understanding of Inflectra medication admin, indication, dosage, preparation, scheduling, side effects, food/drug interactions, and potential complications. Instruct Infection Prevention Description: Instruct patient in strategies to prevent infection: frequent/proper hand-washing techniques, [place] precautions, avoid crowds and persons with known infections, staying current with immunizations, s/s of infection, use of antibiotics and encourage adequate diet and fluid intake. Instruct patient on how to recognize signs and symptoms of infection and when to notify HH nurse and/or physician. Problem:Learning/Teac adi Needs - IV Therapy Completed Pt verb good understanding of infection prevention including proper handwashing and use of universal precautions IV Pump Instruction Description: Instruct patient to [...] Scheduled documented in this encounter Care Teams Farm Consultant Relationship Specialty Start Date End Date Gucci Manrique MD PCP - General Family Medicine 07/06/20 Concetta Diop MD [address] [facility] [address] DIV MEDICAL ONCOLOGY, [facility] [address] [place] [address] Surgeon Breast Surgery 08/28/23 documented as of this encounter
--- OUTSIDE RECORDS SUMMARY | 2024-08-13 20:12 | XMS_ITS | Encounter Summary ---
Author Organization [facility] Address [address] [place] [address] Phone Care Team Providers Care Plexiglas Former Name Role Phone Gucci Manrique MD Primary Care Provider [phone] Concetta Diop MD Unavailable [phone] Reason for Visit * Reason Comments Consult * Consultation (Routine) - Authorized Specialty Diagnoses / Procedures Referred By Contac t Referred To Contact Oncology Diagnoses Family history of breast cancer Issa Mccall MD [address] [place] [address] Phone: tel: fax: [facility] [address] [facility] 7th [place] [address] [place] [address] Phone: tel: fax: Referral ID Status Reason Start Date Expiration Date Visits Requested Visits Authorized [id number] Authorized Specialty Services Required 3 08/26/2024 99 99 Encounter Details Date Type Department Care Team (Latest Contact Info) Description 10/10/2023 12:20 PM SERVICE STATION OPERATOR Office Visit [facility] [address] [place] [address] Concetta Diop MD [address] [place] [address] Family history of breast cancer (Primary Dx); Encounter for nonprocreative genetic counseling and testing Social History Tobacco Use Types Packs/Day Years Used Date Smoking Tobacco: Never Smokeless Tobacco: Never Alcohol Use Standard Drinks/Week Comments Yes 0 (1 standard drink = 0.6 oz pur e alcohol) OASIS D0700: Social Isolation Answer Da te Recorded Frequency of experiencing loneliness or isolatio n Never 04/27/2023 AUDIT-C Answer Date Recorded Frequency of Alcohol Consumption Not on file 10/10/2023 Q2: How many drinks containi ng alcohol do you have on a typical day when you are drinking? 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 Not on file Not on file documented as of this encounter Last Filed Vital Signs Vital Sign Reading Time Taken Comments Blood Pressure 113/72 10/10/2023 12:29 PM SERVICE STATION OPERATOR Pulse 62 10/10/2023 12:29 PM SERVICE STATION OPERATOR Temperature 36.6 ??C (97.8 ??F) 10/10/2023 12:[address] Respiratory Rate 18 10/10/2023 12:29 PM SERVICE STATION OPERATOR Oxygen Saturation 100% 10/10/2023 12:29 PM SERVICE STATION OPERATOR Inhaled Oxygen Concentration - - Weight 99.6 kg (219 lb 9.6 oz) 10/10/2023 12:29 PM SERVICE STATION OPERATOR Height 162.6 cm (5' 4 ) 10/10/2023 12:29 PM SERVICE STATION OPERATOR Body Mass Index 37.69 10/10/2023 12:29 PM SERVICE STATION OPERATOR documented in this encounter Progress Notes * ChikisConcetta MD - 10/10/2023 12:20 PM CST Chief complaint: risk assessment. This is a pleasant woman who has 1st cousin once removed was recently diagnosed with stage III breast cancer at age 33. Other family members were told to get mammograms. She feels breast lumps intermittently, but nothing standing out. Risk assessment data: G 1 P 1 First parity: 22 Menarche: 11. Menopause premenopausal. Past medical history: There is no problem list on file for this patient. Past Medical History: Diagnosis Date Anemia Migraines Past surgical history: Past Surgical History: Procedure Laterality Date SECTION 01/31/2023 WISDOM TOOTH EXTRACTION Social history: Social History Tobacco Use Smoking status: Never Smokeless tobacco: Never Substance and Sexual Activity Drug use: Never Sexual activity: Defer Alcohol Use: Unknown (10/10/2023) AUDIT-C Frequency of Alcohol Consumption: Not on file Average Number of Drinks: Patient does not drink Frequency of Binge Drinking: Not on file Allergies: No Known Allergies Medications: Current Outpatient Medications: inFLIXimab-dyyb 500 mg in sodium chloride 0.9% 0.9% IVPB, 500 mg, intravenous, every 4 weeks iron sucrose complex (VENOFER IV), 300 mg, intravenous, Q7 Days 21/iron fu/folic acid ( COMPLETE ORAL), 4 each, oral, Daily - 0600 [facility] sodium chloride 0.9%, 10 mL, intravenous, PRN (Patient not taking: Reported on 10/10/2023) acetaminophen, 1,000 mg, oral, every 4 weeks (Patient not taking: Reported on 10/10/2023) famotidine, 40 mg, oral, BID (Patient not taking: Reported on 10/10/2023) ferrous sulfate, 1 tablet, oral, Daily with breakfast (Patient not taking: Reported on 10/10/2023) loratadine, 10 mg, oral, every 4 weeks (Patient not taking: Reported on 10/10/2023) pantoprazole DR, 40 mg, oral, Daily (Patient not taking: Reported on 10/10/2023) Family history of cancer: Children: 8 month old son Mother: no cancer. Alive, age 49 . Lives in [place]. Father: no cancer. Alive. He has 2 sisters and 1 brother. His mother is still alive. No informationon his biological father. No known malignancy in any paternal relatives. Sister(s): 1 of 1 (Nae) no cancer. Alive. Crohn's. Brother(s): 1 of 1 no cancer. Alive. Her mother has a full brother, Kavon, diagnosed with bile duct or pancreatic cancer in his 30s. . Two sons. Her mother also has a paternal half brother and 2 paternal half-sisters. All alive and well, as aretheir children. Maternal grandmother: no cancer. at age young? due to heart disease . Her sister had non-Hodgkin's lymphoma. Maternal grandfather: no cancer Alive. His sister has a daughter. This woman was recently diagnosedwith stage III breast cancer at age 33. Unknown genetic testing. Therefore, the affected relative would be Pennie's 1st cousin once removed, or her mother's 1st cousin. Maternal ethnicity: no AJ Scanned pedigree 10/10/23 Review of systems: Review of Systems Exam Vitals: 10/10/23 1229 BP: 113/72 BP Location: Left arm Pulse: 62 Resp: 18 Temp: 36.6 ??C (97.8 ??F) TempSrc: Oral SpO2: 100% Weight: 99.6 kg (219 lb 9.6 oz) Height: 162.6 cm (5' 4 ) Body mass index is 37.69 kg/m??. Physical Exam Constitutional: Appearance: She is well-developed. HENT: Head: Normocephalic and atraumatic. Eyes: General: No scleral icterus. Conjunctiva/sclera: Conjunctivae normal. Neck: Thyroid: No thyromegaly. Cardiovascular: Rate and Rhythm: Normal rate. Pulmonary: Effort: Pulmonary effort is normal. No respiratory distress. Breath sounds: Normal breath sounds. No stridor. Chest: Breasts: Breasts are symmetrical. Right: No inverted nipple, mass, nipple discharge, skin change or tenderness. Left: No inverted nipple, mass, nipple discharge, skin change or tenderness. Comments: Nodular tissue bilaterally, especially in bilateral upper and outer quadrants Abdominal: Palpations: Abdomen is soft. Tenderness: There is no guarding. Musculoskeletal: General: No deformity. Normal range of motion. Cervical back: Normal range of motion and neck supple. Lymphadenopathy: Cervical: No cervical adenopathy. Upper Body: Right upper body: No supraclavicular or axillary adenopathy. Left upper body: No supraclavicular or axillary adenopathy. Skin: General: Skin is warm and dry. Findings: No erythema or rash. Neurological: Mental Status: She is alert and oriented to person, place, and time. Psychiatric: Behavior: Behavior normal. Thought Content: Thought content normal. Judgment: Judgment normal. Imaging/data review: Breast imaging Other imaging reports and data reviewed: records/office visit notes from [facility] . Risk Assessment: As of Merry Dumont est lifetime risk % Merry Dumont est 10 year risk % Sulma estimated 5-year risk is %. Assessment/Plan: Average or insignificantly increased lifetime breast cancer risk (lifetime risk <20%) Lifetime risk of cancer is used to determine benefit for screening beyond annual mammography. We recommend annual breast MRI annually for women whose lifetime risk is 20% or higher, so the recommendation doesn't apply. Population (average risk) screening recommendations apply. For women with minimal breast density orscattered densities, this usually means annual mammography. For women who are average risk but havedense breasts, supplemental screening with MRI or CEDM is an option. Although there is a family history of early-onset breast cancer, this is an extended, more distant relative that typically is not included in risk calculations for Pennie. I did, however, encouraged her to try to get information about this woman, whether not she has had genetic testing, and what that testing showed. Pennie's mother is eligible for genetic testing given that she has a brother with possible pancreatic cancer and a cousin with early-onset breast cancer. I gave Pennie several resources for her mom to get testing, either with me or the [facility] genetic counselors. If she is negative, there is no indication to test Pennie or her siblings. There is no suspected hereditary cancer syndrome in Pennie's paternal lineage. Other eligible relatives include Pennie's maternal grandfather and his sister. Pennie is a first-degree relative of someone eligible for genetic testing, but given the more distant relatives and the fact that her mother is local and has options for genetic testing, I think that would be the most informative place to start. She overall seems reassured by our conversation. We discussed how any change in family history would change her risk calculation. At this point in time, given that the only affected relative is fairly distant, in the absence of the change in family history I would recommend continued breast exams with annual mammography starting at age 40. I otherwise asked her to keep me posted on what she is able to find out regarding genetic testing in family members. We discussed the importance of evaluating any new signs or symptoms regardless of family history. SUMMARY Last appointment: 10/10/23 Last mammogram: NA Last MRI: NA Return to clinic: PRN Mammogram: Due age 38 MRI: Due NA I encouraged Pennie, who seems happy with this plan, to contact me with any questions or concerns, and all questions were answered to the best of my ability. I appreciate the kind referral. My total encounter time on 10/10/23 was 50 minutes which was spent in the activities documented in the note. This includes time spent prior to the visit and after the visit in direct care of the patient. This time does not include time spent in any separately reportable services. Concetta Diop MD, FACS Medical Oncology [facility] ICE STATION OPERATOR documented in this encounter Plan of Treatment Scheduled Referrals Name Type Priority Associated Diagnoses Order Schedule Ambulatory referral to Oncology Outpatient Referral Routine Family history of breast cancer Ordered: 08/22/2023 documented as of this encounter Visit Diagnoses Diagnosis Family history of breast cancer- Primary Family history of malignant neoplasm of breast Encounter for nonprocreative genetic counseling and testing documented in this encounter Care Teams Plexiglas Former Relationship Specialty Start Date End Date Gucci Manrique MD PCP - General Family Medicine 07/06/20 Concetta Diop MD [address] [facility] DIV MEDICAL ONCOLOGY, [facility] [address] [place] [address] Surgeon Breast Surgery 08/28/23 documented as of this encounter
--- OUTSIDE RECORDS SUMMARY | 2024-08-13 20:12 | XMS_ITS | Encounter Summary ---
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 Gender Identity Not on file Sexual Orientation Not on file 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
--- OUTSIDE RECORDS SUMMARY | 2024-08-13 20:12 | XMS_ITS | Encounter Summary ---
Author Organization [facility] Healthcare Address [address] [place] [address] Care Team Providers Care Sloop Captain Name Role Phone Gucci Manrique MD Primary Care Provider [phone] LasanaConcetta MD Unavailable [phone] Reason for Visit * Medication Authorization (Routine) - Pending Review Specialty Diagnoses / Procedures Referred By [place] t Referred To Contact Shreya Platt MD [address] [facility] [address] [place] [address] Phone: tel: fax: Referral ID Status Reason Start Date Expiration Date V isits Requested Visits Authorized [id number] Pending Review 11/06/2023 12/05/2024 1 1 Encounter Details Date Type Department Care Team (Latest Contact Info) Description 11/06/2023 9:00 AM CDT Home Care Visit [address] [place] [address] [address] [place] [address] Gregor Ken RN SN INFUSION TREATMENT ROOM Social History [...] on file Legal Sex Female 12:12 AM OCCUPATIONAL HEALTH AND SAFETY MANAGER Gender Identity Not on file Sexual Orientation Not on file 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 Not on file Not on file documented as of this encounter Last Filed Vital Signs Vital Sign Reading Time Taken Comments Blood Pressure 102/54 11/06/2023 10:40 AM CDT Pulse 66 11/06/2023 10:40 AM CDT Temperature 36.4 ??C (97.6 ??F) 11/06/2023 10:40 AM C DT Respiratory Rate 16 11/06/2023 10:40 AM CDT Oxygen Saturation 99% 11/06/2023 10:40 AM CDT Inhaled Oxygen Concentration - - Weight 96.2 kg (212 lb) 11/06/2023 9:30 AM CDT Height - - Body Mass Index 36.39 10/10/2023 12:29 PM OCCUPATIONAL HEALTH AND SAFETY MANAGER documented in this encounter Miscellaneous Notes * Home Health Plan for Next Visit - Gregor Ken RN - 11/06/2023 10:26 AM CDT Reason for today's visit: Assessment, PIV and dose med. Discuss plan of care with patient. Discharge planning ongoing. Plan for next visit: Assessment, PIV and dose med. documented in this encounter Plan [...] intravenous, As needed, line care, Starting on Sun11/06/23 at 1021, Indications: Maintain Patency of Indwelling Vascular CatheterIndications:Maintain Patency of Indwelling Vascular Catheter Given 11/06/2023 9:45 AM CDT 10 mL Inactive Administered Medications - up to 3 most recent administrations Medication Order MAR Action Action Date Dose Rate Site inFLIXimab-dyyb 500 mg in sodium chloride 0.9% 0.9% IVPB 500 mg, intravenous, Every 4 weeks, First dose on Sun11/06/23 at 1115, Infuse 500mg Infliximab in 250mL Normal Saline over 1 hour with 1.2 micron filter every 4 weeks., Indications: Crohn's DiseaseIndications:Crohn's Disease Given 11/06/2023 9:45 AM CDT 500 mg documented in this encounter Home Health Visit - Care Plan Visit Details Visit Type -SN Infusion Gail tment Room Discipline -Assisted Problems Problem Description Start Date Status Goals Interve ntions Medications Disciplines: Assisted Management of medications 10/28/2023 Active 1 goal linked to scheduled/documen mauricio intervention 1 goal intervention scheduled/documen mauricio in this visit Monitor patient's vital signs every home health visit Disciplines: Skilled Disciplines, SN, PT, OT, ORDER DESK CLERK, POSTING MACHINE OPERATOR Monitor patient's vital signs every visit. 10/28/2023 Active 1 goal linked to scheduled/documen mauricio intervention 1 goal intervention scheduled/documen mauricio in this visit Safety concerns Disciplines: Skilled Disciplines Alteration in safety 10/28/2023 Active 1 goal linked to scheduled/documen mauricio intervention 1 goal intervention scheduled/documen mauricio in this visit Specialty Medication - General Disciplines: Assisted Skilled Nurse to provide safe assessment of patient prior to use of general specialty medication 10/28/2023 Active - 3 problem interventions scheduled/documen mauricio in this visit Medications Disciplines: Assisted Management of IV Medications 10/28/2023 Active - 1 problem intervention scheduled/documen mauricio in this visit Learning/Teachin g Needs - IV Therapy Disciplines: Assisted Teaching and learning needs for IV therapy [...] episode of care Completed VSS, afebrile with o2 sat at 99%. Assess safety Description: Assess patient safety Problem:Safety concerns Goal:Demonstrate use of safety precautions Completed Patient seen in treatment room at our [place] office but reports feeling safe at home and reports no issues. Learning Teaching Needs Description: Skilled Nurse to monitor vital signs throughout the infusion and upon completion of the infusion. Skilled Nurse to assess patient following infusion. If stable, patient may be discharged home. Problem:Specialty Medication - General Completed VSS, afebrile and o2 sat at 99%. Patient tolerated infusion well and will call SN or MD with any issues. Pre Medication Assessment Description: Skilled Nurse to complete infusion checklist. Skilled Nurse to monitor vital signs. If patients has a temperature greater than 100 degrees F (37.8 C), notify the pharmacist/physician. Skilled Nurse to obtain IV access for infusion. Problem:Specialty Medication - General Completed Patient reports no issues with last infusion and no medication changes or problems, VSS, afebrile. Learning Teaching Needs Description: Skilled Nurse to instruct patient on the potential side effects of the medication. Problem:Specialty Medication - General Completed SN instructed patient on the potential side effects of the medication. Instruct on Medication Management Description: Instruct patient [...] strategies to prevent infection: frequent/proper hand-washing techniques, Strang precautions, avoid crowds and persons with known infections, staying current with immunizations, s/s of infection, use of antibiotics and encourage adequate diet and fluid intake. Instruct patient on how to recognize signs and symptoms of infection and when to notify HH nurse and/or physician. Problem:Learning/Teac adi Needs - IV Therapy Completed SN instructed patient in strategies to prevent infection: frequent/proper hand-washing techniques, Strang precautions, avoid crowds and persons with known infections, staying current with immunizations, s/s of infection, use of antibiotics and encourage adequate diet and fluid intake. Instruct patient on how to recognize signs and symptoms of infection and when to notify HH nurse and/or physician. IV Pump Instruction Description: Instruct patient to use call button if IV becomes painful, or swelling/redness occur at IV site, or if pump alarms during infusion. Call button will be kept within reach of patient throughout infusion. Problem:Learning/Teac adi Needs - IV Therapy Completed RN dosed medication via Zyno pump with no alarms or issues. Call light in reach at all times. IV Access Care/Maintenance Description: Skilled Nurse will [...] well. documented in this encounter Care Teams Sloop Captain Relationship Specialty Start Date End Date Gucci Manrique MD PCP - General Family Medicine 07/06/20 Concetta Diop MD [address] [facility] [address] DIV IM MEDICAL ONCOLOGY, [address] [place] [address] Surgeon Breast Surgery 08/28/23 documented as of this encounter
--- OUTSIDE RECORDS SUMMARY | 2024-08-13 20:12 | XMS_ITS | Encounter Summary ---
Author Organization [facility] Healthcare Address [address] [place] [address] Care Team Providers Care Pbx Teacher Name Role Phone Gucci Manrique MD Primary Care Provider + [phone] Bailey'S CrossroadsConcetta MD Unavailable [phone] Reason for Visit * Medication Authorization (Routine) - Pending Review Specialty Diagnoses / Procedures Referred By Carolina t Referred To Contact Shreya Platt MD [address] [facility] [address] [place] [address] Phone: tel: fax: Referral ID Status Reason Start Date Expiration Date V isits Requested Visits Authorized [id number] Pending Review 01/06/2024 02/04/2025 1 1 Encounter Details Date Type Department Care Team (Latest Contact Info) Description 01/01/2024 9:00 AM CDT Home Care Visit [address] [address] [address] [place] [address] Gregor Ken RN SN INFUSION TREATMENT ROOM [...] on file Legal Sex Female 12:12 AM WARPER TENDER Gender Identity Not on file Sexual Orientation Not on file 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 Discuss plan of care with patient. Discharge planning ongoing. Plan for next visit: Assessment, PIV and med dose. documented in this encounter Plan of Treatment Not on file documented as of this encounter Visit Diagnoses Not on filedocumented in this encounter Administered Medications Active Administered Medications - up to 3 most recent administrations Medication Order MAR Action Action Date Dose Rate Site 0.9 % sodium chloride (INV-[facility] sodium chloride 0.9%) injection 10 mL, intravenous, As needed, line care, Starting on 01/06/24 at 1634, Indications: Maintain Patency of Indwelling Vascular CatheterIndications:Maintain Patency of Indwelling Vascular Catheter Given 01/01/2024 10:35 AM CDT 10 mL Given 01/01/2024 9:15 AM CDT 10 mL Inactive Administered Medications - up to 3 most recent administrations Medication Order MAR Action Action Date Dose Rate Site acetaminophen (TYLENOL) 500 mg tablet 1,000 mg, oral, Every 4 weeks, First dose on 01/06/24 at 1715, Please give 1000mg of acetaminophen (Tylenol) 30 minutes prior to Inflectra infusion, Indications: infusion reaction prophylaxisIndications:infusion reaction prophylaxis Given 01/01/2024 9:05 AM CDT 1,000 mg inFLIXimab-dyyb 500 mg in sodium chloride 0.9% 0.9% IVPB 500 mg, intravenous, Every 4 weeks, First dose on 01/06/24 at 1715, Infuse 500mg Infliximab in 250mL Normal Saline over 1 hour with 1.2 micron filter every 4 weeks., Indications: Crohn's DiseaseIndications:Crohn's Disease Given 01/01/2024 9:30 AM CDT 500 mg loratadine 10 mg capsule 10 mg, oral, Every 4 weeks, First dose on 01/06/24 at 1715, Please give 10mg of loratadine (Claritin) 30 minutes prior to Inflectra infusion, Indications: infusion reaction prophylaxisIndications:infusion reaction prophylaxis Given 01/01/2024 9:05 AM CDT 10 mg documented in this [...] visit Disciplines: Skilled Disciplines, SN, PT, OT, SERVICE STATION MANAGER, PLANTING MACHINE CREWMAN Monitor patient's vital signs every visit. 10/28/2023 [...] Learning/Teachin g Needs - IV Therapy Disciplines: Alf [...] Completed VSS, afebrile with O2 sat at 98%. Assess safety Description: Assess patient safety Problem:Safety concerns Goal:Demonstrate use of safety precautions Completed Patient seen in treatment room at our [place] office but reports feeling safe at home and reports no issues. Learning Teaching Needs Description: Skilled Nurse to monitor vital signs throughout the infusion and upon completion of the infusion. Skilled Nurse to assess patient following infusion. If stable, patient may be discharged home. Problem:Specialty Medication - General Completed Patient tolerated the infusion well and will call SN or [...] tolerated last infusion well and reports no problems. VSS, afebrile. Learning Teaching Needs Description: Skilled [...] strategies to prevent infection: frequent/proper hand-washing techniques, [place] precautions, avoid crowds and persons with known infections, staying current with immunizations, s/s of infection, use of antibiotics and encourage adequate diet and fluid intake. Instruct patient on how to recognize signs and symptoms of infection and when to notify nurse and/or physician. Problem:Learning/Teac adi Needs - IV Therapy Completed SN instructed patient in strategies to prevent infection: frequent/proper hand-washing techniques, [place] precautions, avoid crowds and persons with known [...] Problem:Learning/Teac adi Needs - IV Therapy Completed Call button in reach at all times. IV Access [...] well. documented in this encounter Care Teams Pbx Teacher Relationship Specialty Start Date End Date Gucci Manriqeu MD PCP - General Family Medicine 07/06/20 Concetta Diop MD [id number] [facility] [address] DIV IM MEDICAL ONCOLOGY, [address] [place] [address] Surgeon Breast Surgery 08/28/23 documented as of this encounter
--- OUTSIDE RECORDS SUMMARY | 2024-08-13 20:12 | XMS_ITS | Encounter Summary ---
Author Organization [facility] Healthcare Address [address] [place] [address] Care Team Providers Care Welcome Desk Agent Name Role Phone Gucci Manrique MD Primary Care Provider + [phone] [place], Concetta Bowden MD Unavailable [phone] Encounter Details Date Type Department Care Team (Late st Contact Info) Description 10/28/2023 Plan of Care Documentation 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 The patient is under my care, and I have authorized the services on this plan of care and will periodically review the plan. documented in this encounter Plan of Treatment Not on file documented as of this encounter Visit Diagnoses Not on filedocumented in this encounter Care Teams Welcome Desk Agent Relationship Specialty Start Date End Date Gucci Manrique MD PCP - General Family Medicine 07/06/20 [place]etta schwab MD [address] [facility] [address] DIV MEDICAL ONCOLOGY, [facility] [address] [place] [address] Surgeon Breast Surgery 08/28/23 documented as of this encounter
--- OUTSIDE RECORDS SUMMARY | 2024-08-13 20:12 | XMS_ITS | Encounter Summary ---
Author Organization [facility] Home Care Servic es Address [address] [place] [address] Phone Care Team Providers Care Willow Analyst Name Role Phone Gucci Manrique MD Primary Care Provider + [phone] [place], Concetta Bowden MD Unavailable [phone] Reason for Visit * Medication Authorization (Routine) - Pending Review Specialty Diagnoses / Procedures Referred By Contac t Referred To Contact Shreya Platt MD [address] [facility] [address] [place] [address] Phone: tel: fax: Referral ID Status Reason Start Date Expiration Date V isits Requested Visits Authorized [id number] Pending Review 10/16/2023 11/14/2024 1 1 Encounter Details Date Type Department Care Team (Latest Contact Info) Description 10/16/2023 12:00 PM SCROLL ASSEMBLER Home Care Visit [facility] Health [address] [address] [address] [place] [address] Gregor Ken RN SN INFUSION TREATMENT ROOM [...] on file Legal Sex Female 12:12 AM SCROLL ASSEMBLER Gender Identity Not on file Sexual Orientation Not on file 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 Not on file Not on file documented as of this encounter Last Filed Vital Signs Vital Sign Reading Time Taken Comments Blood Pressure 110/66 10/16/2023 1:45 PM SCROLL ASSEMBLER Pulse 70 10/16/2023 1:45 PM SCROLL ASSEMBLER Temperature 36.5 ??C (97.7 ??F) 10/16/2023 1:45 PM CS T Respiratory Rate 16 10/16/2023 1:45 PM SCROLL ASSEMBLER Oxygen Saturation 99% 10/16/2023 1:45 PM SCROLL ASSEMBLER Inhaled Oxygen Concentration - - Weight 99.3 kg (219 lb) 10/16/2023 12:15 PM SCROLL ASSEMBLER Height - - Body Mass Index 37.59 10/10/2023 12:29 PM SCROLL ASSEMBLER documented in this encounter Miscellaneous Notes * Home Health Plan for Next Visit - Gregor Ken RN - 10/16/2023 1:39 PM CST Reason for today's visit: Assessment, PIV, dose Venofer. Discuss plan of care with patient. Discharge planning ongoing. Plan for next visit: Assessment, PIV, dose Venofer. LL ASSEMBLER documented in this encounter Plan of Treatment Not on file documented as of this encounter Visit Diagnoses Not on filedocumented in this encounter Administered Medications Active Administered Medications - up to 3 most recent administrations Medication Order MAR Action Action Date Dose Rate Site 0.9 % sodium chloride (IN[facility] sodium chloride 0.9%) injection 10 mL, intravenous, As needed, line care, Starting on Sun10/16/23 at 1331, Indications: Maintain Patency of Indwelling Vascular CatheterIndications:Maintain Patency of Indwelling Vascular Catheter Given 10/16/2023 12:20 PM SCROLL ASSEMBLER 10 mL iron sucrose complex (VENOFER IV) 300 mg, intravenous, Every 7 days, First dose on Sun10/16/23 at 1415, Infuse 300 mg of Iron Sucrose in 250 ml Normal Saline over 90 minutes at 167 mL/hr. Given 10/16/2023 12:20 PM SCROLL ASSEMBLER 300 mg documented in this encounter Home Health Visit - Care Plan Visit Details Visit Type -SN Infusion Gail tment Room Discipline -Fci Problems Problem Description Start Date Status Goals Interve ntions Medications Disciplines: Fci Management of medications 11/08/2021 Active 1 goal linked to scheduled/documen mauricio intervention 6 goal interventions scheduled/documen mauricio in this visit Monitor patient's vital signs every home health visit Disciplines: SN, PT, OT, WATER CONSERVATION SPECIALIST, CARAMEL CUTTER MACHINE, Skilled Disciplines Monitor patient's vital signs every visit. 11/08/2021 Active 1 goal linked to scheduled/documen mauricio intervention 1 goal intervention scheduled/documen mauricio in this visit Safety concerns Disciplines: Skilled Disciplines Alteration in safety 11/08/2021 Active 1 goal linked to scheduled/documen mauricio intervention 1 goal intervention scheduled/documen mauricio in this visit Specialty Medication - General Disciplines: Fci SN to provide safe assessment of patient prior to use of general specialty medication 11/08/2021 Active - 2 problem interventions scheduled/documen mauricio in this visit Learning/Teachin g Needs - IV Therapy Disciplines: Fci Teaching and learning needs for IV therapy 11/08/2021 Active - 2 problem interventions scheduled/documen mauricio in this visit Goals Goal Associated Problem Outcome Goal Met? Visit Notes Understand and follow medication therapy Description: Patient will understand and follow prescribed medication therapy as evidence by having up to date medication list in home & ability to verbalize purpose, schedule, and side effects by the end of the episode of care. Medications No Measure vital signs during every home health visit during episode of care Description: Skilled Nurse to measure vital signs during each visit throughout episode of care. Monitor patient's vital signs every home health visit No Demonstrate use of safety precautions Description: Patient will maintain a safe home environment as evidenced by remaining free from injury and demonstrates use of safety precautions. Safety concerns No Interventions Intervention Associated Problem/Goal Status Variance Visit Notes Instruct medications Description: Skilled Nurse will instruct patient in medication administration, purpose, dosages, preparation, scheduling, side effects, food/drug interactions, drug allergies, and potential complications. Medication instructed on: Inflectra Problem:Medications Goal:Understand and follow medication therapy Completed SN instructed patient in medication administration, purpose, dosages, preparation, scheduling, side effects, food/drug interactions, drug allergies, and potential complications. Medication instructed on: Venofer infusion. Instruct on drug interactions Description: Perform drug interaction screening and instruct patient on severe drug interactions. Notify MD of any severe interactions. Problem:Medications Goal:Understand and follow medication therapy Completed No severe reactions noted. Instruct on high risk medications Description: Skilled Nurse will instruct patient on high-risk/high-alert medications, specifically Inflectra. Problem:Medications Goal:Understand and follow medication therapy Completed SN instructed patient on high-risk/high-alert medications, specifically Venofer infusion. Instruct on medication delivery system Description: Skilled Nurse will instruct patient on medication delivery system and to keep up to date medication list. Problem:Medications Goal:Understand and follow medication therapy Completed Patient doing well with home meds and reports no problems with adequate supply on hand. Instruct on medication side effects Description: Skilled Nurse will instruct patient to monitor for side effects and adverse reactions. Problem:Medications Goal:Understand and follow medication therapy Completed Patient tolerated infusion well and VSS, afebrile and patient aware to call SN or MD for any questions or problems. Monitor effectiveness of drug therapy Description: Monitor effectiveness of patient's drug therapy. Problem:Medications Goal:Understand and follow medication therapy Completed Patient doing well with her 2nd iron infusion but reports no increase in activity level yet and has 3rd infusion scheduled for next week. Monitor Vital Signs Description: Monitor blood pressure, pulse, oxygen saturation, respirations and temperature. Problem:Monitor patient's vital signs every home health visit Goal:Measure vital signs during every home health visit during episode of care Completed Patients VSS, afebrile and with no C/O pain or problems. Assess safety Description: Assess patient safety. Problem:Safety concerns Goal:Demonstrate use of safety precautions Completed Patient seen in treatment room at our [place] office but reports feeling safe at home and reports no issues. Learning Teaching Needs Description: Skilled Nurse to monitor vital signs throughout the infusion and upon completion of the infusion. Skilled Nurse to assess patient following infusion. If stable, patient may be discharged home. Problem:Specialty Medication - General Completed Patient discharged home after infusion completed with her VSS, afebrile and no c/o pain. Patient will call with any issues or problems. Pre Medication Assessment Description: Skilled Nurse to complete infusion checklist. Skilled Nurse to monitor vital signs. If patients has a temperature greater than 100 degrees F (37.8 C), notify the pharmacist/physician. Skilled Nurse to obtain IV access for infusion. Problem:Specialty Medication - General Completed VSS, afebrile with o2 sat at 99%. Instruct Infection Prevention Description: Skilled Nurse will instruct patient in strategies to prevent infection: frequent/proper hand-washing techniques, [place] precautions, avoid crowds and persons with known infections, staying current with immunizations, s/s of infection, use of antibiotics and encourage adequate diet and fluid intake. Instruct patient on how to recognize signs and symptoms of infection and when to notify HH nurse and/or physician. Problem:Learning/Teac adi Needs - IV Therapy Completed SN instructed patient in strategies to prevent infection: frequent/proper hand-washing techniques, [place] precautions, avoid crowds and persons with known infections, staying current with immunizations, s/s of infection, use of antibiotics and encourage adequate diet and fluid intake. Instruct patient on how to recognize signs and symptoms of infection and when to notify HH nurse and/or physician. IV Access Care/Maintenance Description: Skilled Nurse will [...] - IV Therapy Completed PIV placed on 2nd attempt using a 24guage cath, med infused, line flushed and cath removed-intact. 2x2 and BandAid placed over the site. Patient tolerated the procedure well. documented in this encounter Care Teams Willow Analyst Relationship Specialty Start Date End Date Gucci Manrique MD PCP - General Family Medicine 07/06/20 Concetta Diop MD [address] [facility] [address] DIV IM MEDICAL ONCOLOGY, [address] [place] [address] Surgeon Breast Surgery 08/28/23 documented as of this encounter
--- OUTSIDE RECORDS SUMMARY | 2024-08-13 20:12 | XMS_ITS | Encounter Summary ---
Author Organization [facility] Healthcare Address [address] [place] [address] Care Team Providers Care Carpenter Mold Name Role Phone Gucci Manrique MD Primary Care Provider + [phone] HyannisConcetta schwab MD Unavailable [phone] Encounter Details Date Type Department Care Team (Latest Contact Info) Description 10/28/2023 8:45 AM CUSTOM FURRIER Home Care Visit [address] [address] [address] [place] [address] Bipin Leiva, AMADOU CUTOV SBO SN NON OASIS RECERT Social History Tobacco Use Types Packs/Day Years [...] on file Legal Sex Female 12:12 AM CUSTOM FURRIER Gender Identity Not on file Sexual Orientation Not on file 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 Infusion given over two hours by PIV. Patient recertified outside of face to face visit. See last visit for most recent assessment. Reviewed insurance, medications and allergies. Order for recertification and chcf visits included with pharmacy order on 10/09/2023. OM FURRIER documented in this encounter Plan of Treatment Not on file documented as of this encounter Visit Diagnoses Not on filedocumented in this encounter Home Health Visit - Care Plan Visit Details Visit Type -SN Non-OASIS Rec ert Discipline -Shelter Problems Problem Description Start Date Status Goals Interve ntions Medications Disciplines: Shelter Management of medications 10/28/2023 Active 1 goal linked to scheduled/documen mauricio intervention 1 goal intervention scheduled/documen mauricio in this visit Monitor patient's vital signs every home health visit Disciplines: Skilled Disciplines, SN, PT, OT, IT SERVICE CONTINUITY SUPERVISOR, SLIP MIXER Monitor patient's vital signs every visit. 10/28/2023 Active 1 goal linked to scheduled/documen mauricio intervention 1 goal intervention scheduled/documen mauricio in this visit Safety concerns Disciplines: Skilled Disciplines Alteration in safety 10/28/2023 Active 1 goal linked to scheduled/documen mauricio intervention 1 goal intervention scheduled/documen mauricio in this visit Specialty Medication - General Disciplines: Shelter Skilled Nurse to provide safe assessment of patient prior to use of general specialty medication 10/28/2023 Active - 3 problem interventions scheduled/documen mauricio in this visit Medications Disciplines: Shelter Management of IV Medications 10/28/2023 Active - 1 problem intervention scheduled/documen mauricio in this visit Learning/Teachin g Needs - IV Therapy Disciplines: Shelter Teaching and learning needs for IV therapy [...] home health visit during episode of care Scheduled Assess safety Description: Assess patient safety Problem:Safety [...] potential complications. Medications instructed on: Inflectra. Problem:Medications Scheduled Instruct Infection Prevention Description: Instruct patient in strategies to prevent infection: frequent/proper hand-washing techniques, [place] precautions, avoid crowds and persons with known infections, staying current with immunizations, s/s of infection, use of antibiotics and encourage adequate diet and fluid intake. Instruct patient on how to recognize signs and symptoms of infection and when to notify HH nurse and/or physician. Problem:Learning/Teaching Needs - IV Therapy Scheduled IV Pump Instruction Description: Instruct patient to use call button if IV becomes painful, or swelling/redness occur at IV site, or if pump alarms during infusion. Call button will be kept within reach of patient throughout infusion. Problem:Learning/Teaching Needs - IV Therapy Scheduled IV Access [...] prior to discharge. Type of line: PIV Problem:Learning/Teaching Needs - IV Therapy Scheduled documented in this encounter Care Teams Carpenter Mold Relationship Specialty Start Date End Date Gucci Manrique MD PCP - General Family Medicine 07/06/20 ChikisConcetta MD [address] [facility] [address] DIV MEDICAL ONCOLOGY, [facility] [address] [place] [address] Surgeon Breast Surgery 08/28/23 documented as of this encounter
--- OUTSIDE RECORDS SUMMARY | 2024-08-13 20:12 | XMS_ITS | Referral Summary ---
Author Organization [facility] Address [address] [place] [address] Care Team Providers Care Catering Associate Name Role Phone Gucci Manrique MD Primary Care Provider [phone] [place], Concetta Bowden MD Unavailable [phone] Encounters Date Type Department Care Team Description 07/27/2024 Orders Only 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 Home Care Visit [address] [place] [address] Bipin Leiva, RN SN INFUSION TREATMENT ROOM 06/18/2024 9:00 AM CDT Home Care Visit [address] [place] [address] Leonila Grover, AMADOU SN INFUSION TREATMENT ROOM 05/21/2024 Home Care Visit [address] [place] [address] Bipin Leiva, RN CASE COMMUNICATION 05/21/2024 Orders Only [facility] Home Care Services [address] [place] [address] Troy Ryan RPh 05/21/2024 9:00 AM CDT Home Care Visit [facility] [address] [place] [address] Bipin Leiva RN SN INFUSION TREATMENT ROOM from Last 3 Months Allergies No known active allergies Medications 0.9 % sodium chloride ([facility] sodium chloride 0.9%) injectionIndic ations:Maintai n Patency of Indwelling Vascular Catheter Infuse 10 mL into a venous catheter as needed for line care. Indications: prevent clot from blocking an intravenous catheter Active famotidine (PEPCID) 40 mg tabletIndicati ons:gastroesop hageal reflux disease Take 40 mg by mouth 2 (two) times a day. Indications: gastroesophageal reflux disease Active pantoprazole DR (PROTONIX) 20 mg EC tabletIndicati ons:Mucositis Prophylaxis Take 40 mg by mouth daily. Indications: Mucositis Prophylaxis 022 Active 21/iron fu/folic acid ( COMPLETE ORAL)Indicatio ns: Take 4 each by mouth case technician before breakfast. Indications: Active ferrous sulfate 325 mg (65 mg of elemental iron) tabletIndicati ons:Iron Deficiency Anemia Take 1 tablet by mouth daily with breakfast. Indications: anemia from inadequate iron Active iron sucrose complex (VENOFER IV)Indications :Low Iron Infuse 300 mg into a venous catheter every 7 days Infuse 300 mg of Iron Sucrose in 250 ml Normal Saline over 90 minutes at 167 mL/hr. 024 Active cyclobenzaprin e (FLEXERIL) 10 mg tabletIndicati ons:Muscle Spasm Take 10 mg by mouth daily. Indications: muscle spasm 2022 Discontinued (No longer clinically indicated) diazePAM (VALIUM) 10 mg tabletIndicati ons:Muscle Spasm Take 10 mg by mouth daily. Insert vaginally once dailly for 14 days. Indications: muscle spasm 2022 Discontinued (No longer clinically indicated) hyoscyamine (LEVSIN) 0.125 mg SL tabletIndicati ons:Irritable Bowel Syndrome Take 0.125 mg by mouth every 4 (four) hours as needed for cramping. Indications: irritable colon 2022 Discontinued (Other) Hospital, Clinic, or Other Facility Administered Medication Ordered Dose Route Frequency Start Date End Date Status inFLIXimab-dyyb (INFLECTRA) injection 500 mgIndications:Crohn's Disease 500 mg IV Every 4 weeks 05/05/2024 Active Active Problems Problem Noted Date Diagnosed Date Family history of breast cancer 10/10/2023 Encounter for nonprocreative genetic counseling and testing 10/10/2023 Social History Tobacco Use Types Packs/Day Years [...] on file Legal Sex Female 12:12 AM BLACKSMITH SUPERVISOR Gender Identity Not on file Sexual Orientation Not on file 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 Not on file Not on file Last Filed Vital Signs Vital Sign Reading Time Taken Comments Blood Pressure 123/71 07/16/2024 11:38 AM BLACKSMITH SUPERVISOR Pulse 82 07/16/2024 11:38 AM BLACKSMITH SUPERVISOR Temperature 36.4 ??C (97.6 ??F) 07/16/2024 11:[address] Respiratory Rate 16 07/16/2024 11:38 AM BLACKSMITH SUPERVISOR Oxygen Saturation 100% 07/16/2024 11:38 AM BLACKSMITH SUPERVISOR Inhaled Oxygen Concentration - - Weight 99.3 kg (219 lb) 06/18/2024 9:15 AM CDT Height 162.6 cm (5' 4 ) 07/16/2024 10:13 AM BLACKSMITH SUPERVISOR Body Mass Index 37.59 05/21/2024 9:20 AM CDT Plan of Treatment Not on file Insurance Member Subscriber Plan / Payer (Ef fective 2024-Present) Name:Pennie Miner Relation to Subscriber:Child Name:SABAKRIS BLOOD Address: [facility] [place] [address] Payer ID:[id number] (NAIC) Group ID:[id number] Type:AETNA HMO/PPO Address: [address] [place] [address] Care Teams Catering Associate Relationship Specialty Start Date End Date Gucci Manrique MD PCP - General Family Medicine 07/06/20 PabloConcetta MD [address] [facility] [address] DIV IM MEDICAL ONCOLOGY, [facility] [address] [place] [address] Surgeon Breast Surgery 08/28/23
--- OUTSIDE RECORDS SUMMARY | 2024-08-13 20:12 | XMS_ITS | Encounter Summary ---
Author Organization [facility] Healthcare Address [address] [place] [address] Care Team Providers Care Ceramic Engineering Professor Name Role Phone Gucci Manrique MD Primary Care Provider [phone] [place], Concetta Bowden MD Unavailable [phone] Reason for Visit * Reason Comments Crohn's Disease * Medication Authorization (Routine) - Pending Review Specialty Diagnoses / Procedures Referred By Contkarthikeyan t Referred To Contact Shreya Platt MD [address] [facility] [address] [place] [address] Phone: tel: fax: Referral ID Status Reason Start Date Expiration Date V isits Requested Visits Authorized [id number] Pending Review 02/26/2024 03/27/2025 1 1 Encounter Details Date Type Department Care Team (Latest Contact Info) Description 02/26/2024 9:00 AM CDT Home Care Visit [facility] [address] [address] [address] [place] [address] Dipti Loya RN SN INFUSION TREATMENT ROOM [...] on file Legal Sex Female 12:12 AM AIRBRUSH ARTIST PHOTOGRAPHY Gender Identity Not on file Sexual Orientation Not on file 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 Not on file Not on file documented as of this encounter Last Filed Vital Signs Vital Sign Reading Time Taken Comments Blood Pressure 98/55 02/26/2024 11:00 AM CDT Pulse 64 02/26/2024 11:00 AM CDT Temperature 36.7 ??C (98 ??F) 02/26/2024 11:00 AM CDT Respiratory Rate 17 02/26/2024 11:00 AM CDT Oxygen Saturation 99% 02/26/2024 11:00 AM CDT Inhaled Oxygen Concentration - - Weight 93.4 kg (206 lb) 02/26/2024 10:00 AM CDT Height - - Body Mass Index 35.36 10/10/2023 12:29 PM AIRBRUSH ARTIST PHOTOGRAPHY documented in this encounter Miscellaneous Notes * Home Health Plan for Next Visit - Dipti Loya RN - 02/26/2024 10:39 AM CDT Reason for today's visit assessment, instruction, Inflectra infusion Discuss plan of care with pt verb good understanding Discharge planning indef Plan for next visit scheduled Inflectra infusion 03/25/2024 documented in this encounter Plan of Treatment Not on file documented as of this encounter Visit Diagnoses Not on filedocumented in this encounter Administered Medications Active Administered Medications - up to 3 most recent administrations Medication Order MAR Action Action Date Dose Rate Site 0.9 % sodium chloride ([facility] sodium chloride 0.9%) injection 10 mL, intravenous, As needed, line care, Starting on Sun02/26/24 at 1028, Indications: Maintain Patency of Indwelling Vascular CatheterIndications:Maintain Patency of Indwelling Vascular Catheter Given 02/26/2024 10:00 AM CDT 10 mL Inactive Administered Medications - up to 3 most recent administrations Medication Order MAR Action Action Date Dose Rate Site acetaminophen (TYLENOL) 500 mg tablet 1,000 mg, oral, Every 4 weeks, First dose on Sun02/26/24 at 2245, Please give 1000mg of acetaminophen (Tylenol) 30 minutes prior to Inflectra infusion, Indications: infusion reaction prophylaxisIndications:infusion reaction prophylaxis Given 02/26/2024 9:30 AM CDT 1,000 mg inFLIXimab-dyyb 500 mg in sodium chloride 0.9% 0.9% IVPB 500 mg, intravenous, Every 4 weeks, First dose on Sun02/26/24 at 2245, Infuse 500mg Infliximab in 250mL Normal Saline over 1 hour with 1.2 micron filter every 4 weeks., Indications: Crohn's DiseaseIndications:Crohn's Disease Given 02/26/2024 10:00 AM CDT 500 mg loratadine 10 mg capsule 10 mg, oral, Every 4 weeks, First dose on Sun02/26/24 at 2245, Please give 10mg of loratadine (Claritin) 30 minutes prior to Inflectra infusion, Indications: infusion reaction prophylaxisIndications:infusion reaction prophylaxis Given 02/26/2024 9:30 AM CDT 10 mg documented in this encounter Home Health Visit - Care Plan Visit Details Visit Type -SN Infusion Gail tment Room Discipline -Usp Problems Problem Description Start Date Status Goals Interve ntions Medications Disciplines: Usp Management of medications 10/28/2023 Active 1 goal linked to scheduled/documen mauricio intervention 1 goal intervention scheduled/documen mauricio in this visit Monitor patient's vital signs every home health visit Disciplines: Skilled Disciplines, SN, PT, OT, CRUSHED STONE GRADER, CRIMINOLOGY PROFESSOR Monitor patient's vital signs every visit. 10/28/2023 Active 1 goal linked to scheduled/documen mauricio intervention 1 goal intervention scheduled/documen mauricio in this visit Safety concerns Disciplines: Skilled Disciplines Alteration in safety 10/28/2023 Active 1 goal linked to scheduled/documen mauricio intervention 1 goal intervention scheduled/documen mauricio in this visit Specialty Medication - General Disciplines: Usp Skilled Nurse to provide safe assessment of patient prior to use of general specialty medication 10/28/2023 Active - 3 problem interventions scheduled/documen mauricio in this visit Medications Disciplines: Usp Management of IV Medications 10/28/2023 Active - 1 problem intervention scheduled/docrocion mauricio in this visit Learning/Mira sorensen Needs - IV Therapy Disciplines: Usp Teaching and learning needs for IV therapy 10/28/2023 Active - 3 problem interventions scheduled/docjanie martínez in this visit Goals Goal Associated [...] strategies to prevent infection: frequent/proper hand-washing techniques, [place] precautions, avoid crowds and persons with known infections, staying current with immunizations, s/s of infection, use of antibiotics and encourage adequate diet and fluid intake. Instruct patient on how to recognize signs and symptoms of infection and when to notify HH nurse and/or physician. Problem:Learning/Teac adi Needs - IV Therapy Completed pt verb good understanding of infection prevention including [...] Scheduled documented in this encounter Care Teams Ceramic Engineering Professor Relationship Specialty Start Date End Date Gucci Manrique MD PCP - General Family Medicine 07/06/20 Concetta Diop MD [address] [facility] [address] DIV MEDICAL ONCOLOGY, [facility] [address] [place] [address] Surgeon Breast Surgery 08/28/23 documented as of this encounter
--- OUTSIDE RECORDS SUMMARY | 2024-08-13 20:12 | XMS_ITS | Encounter Summary ---
Author Organization [facility] Home Care Servic es Address [address] [place] [address] Phone Care Team Providers Care Volleyball Player Name Role Phone Gucci Manrique MD Primary Care Provider [phone] [place], Concetta Bowden MD Unavailable [phone] Reason for Visit * Reason Comments Crohn's Disease * Medication Authorization (Routine) - Pending Review Specialty Diagnoses / Procedures Referred By Carolina t Referred To Contact Shreya Platt MD [address] [facility] [address] [place] [address] Phone: tel: fax: Referral ID Status Reason Start Date Expiration Date V isits Requested Visits Authorized [id number] Pending Review 10/24/2023 11/22/2024 1 1 Encounter Details Date Type Department Care Team (Latest Contact Info) Description 10/23/2023 9:00 AM BATCH MIXING TRUCK DRIVER Home Care Visit [facility] Health [address] [address] [address] [place] [address] Dipti Loya RN SN INFUSION TREATMENT ROOM [...] on file Legal Sex Female 12:12 AM BATCH MIXING TRUCK DRIVER Gender Identity Not on file Sexual Orientation Not on file 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 Not on file Not on file documented as of this encounter Last Filed Vital Signs Vital Sign Reading Time Taken Comments Blood Pressure 98/72 10/23/2023 11:20 AM BATCH MIXING TRUCK DRIVER Pulse 72 10/23/2023 11:20 AM BATCH MIXING TRUCK DRIVER Temperature 36.2 ??C (97.1 ??F) 10/23/2023 11:[address] Respiratory Rate 17 10/23/2023 11:20 AM BATCH MIXING TRUCK DRIVER Oxygen Saturation 99% 10/23/2023 11:20 AM BATCH MIXING TRUCK DRIVER Inhaled Oxygen Concentration - - Weight - - Height - - Body Mass Index - - documented in this encounter Miscellaneous Notes * Home Health Plan for Next Visit - Dipti Loya RN - 10/23/2023 10:24 AM CST Reason for today's visit assessment, instruction, venofer infusion Discuss plan of care with pt verb good understanding Discharge planning indef Plan for next visit Inflectra infusion 11/06/2023 H MIXING TRUCK DRIVER documented in this encounter Plan of Treatment Not on file documented as of this encounter Visit Diagnoses Not on filedocumented in this encounter Administered Medications Active Administered Medications - up to 3 most recent administrations Medication Order MAR Action Action Date Dose Rate Site 0.9 % sodium chloride ([facility] sodium chloride 0.9%) injection 10 mL, intravenous, As needed, line care, Starting on Sun10/23/23 at 1018, Indications: Maintain Patency of Indwelling Vascular CatheterIndications:Maintain Patency of Indwelling Vascular Catheter Given 10/23/2023 9:40 AM BATCH MIXING TRUCK DRIVER 10 mL iron sucrose complex (VENOFER IV) 300 mg, intravenous, Every 7 days, First dose on Sun10/24/23 at 1700, Infuse 300 mg of Iron Sucrose in 250 ml Normal Saline over 90 minutes at 167 mL/hr. Given 10/23/2023 9:40 AM BATCH MIXING TRUCK DRIVER 300 mg documented in this encounter Home Health Visit - Care Plan Visit Details Visit Type -SN Infusion Gail tment Room Discipline -Long-Term Problems Problem Description Start Date Status Goals Interve ntions Medications Disciplines: Long-Term Management of medications 11/08/2021 Active 1 goal linked to scheduled/documen mauricio intervention 6 goal interventions scheduled/documen mauricio in this visit Monitor patient's vital signs every home health visit Disciplines: SN, PT, OT, APPARATUS ENGINEERING TECHNOLOGIST, MACHINE JOINER CEMENTER, Skilled Disciplines Monitor patient's vital signs every visit. 11/08/2021 Active 1 goal linked to scheduled/documen mauricio intervention 1 goal intervention scheduled/documen mauricio in this visit Safety concerns Disciplines: Skilled Disciplines Alteration in safety 11/08/2021 Active 1 goal linked to scheduled/documen mauricio intervention 1 goal intervention scheduled/documen mauricio in this visit Specialty Medication - General Disciplines: Long-Term SN to provide safe assessment of patient prior to use of general specialty medication 11/08/2021 Active - 2 problem interventions scheduled/documen mauricio in this visit Learning/Teachin g Needs - IV Therapy Disciplines: Long-Term Teaching and learning needs for IV therapy [...] Goal:Understand and follow medication therapy Completed Patient verb good understanding of venofer medication admin, indication, dosage, preparation, scheduling, side effects, food/drug interactions, and potential complications. Instruct on drug interactions Description: Perform drug interaction screening and instruct patient on severe drug interactions. Notify MD of any severe interactions. Problem:Medications Goal:Understand and follow medication therapy Scheduled Instruct on high risk medications Description: Skilled Nurse will instruct patient on high-risk/high-alert medications, specifically Inflectra. Problem:Medications Goal:Understand and follow medication therapy Scheduled Instruct on medication delivery system Description: Skilled Nurse will instruct patient on medication delivery system and to keep up to date medication list. Problem:Medications Goal:Understand and follow medication therapy Scheduled Instruct on medication side effects Description: Skilled Nurse will instruct patient to monitor for side effects and adverse reactions. Problem:Medications Goal:Understand and follow medication therapy Scheduled Monitor effectiveness of drug therapy Description: Monitor effectiveness of patient's drug therapy. Problem:Medications Goal:Understand and follow medication therapy Scheduled Monitor Vital Signs Description: Monitor blood pressure, pulse, oxygen saturation, respirations and temperature. Problem:Monitor patient's vital signs every home health visit Goal:Measure vital signs during every home health visit during episode of care Completed VSS Assess safety Description: Assess patient safety. Problem:Safety [...] for infusion. Problem:Specialty Medication - General Scheduled Instruct Infection Prevention Description: Skilled Nurse will instruct patient in strategies to prevent infection: frequent/proper hand-washing techniques, [place] precautions, avoid crowds and persons with known [...] handwashing and use of universal precautions IV Access Care/Maintenance Description: Skilled Nurse will [...] Scheduled documented in this encounter Care Teams Volleyball Player Relationship Specialty Start Date End Date Gucci Manrique MD PCP - General Family Medicine 07/06/20 ChikisConcetta MD [address] [facility] [address] DIV MEDICAL ONCOLOGY, [facility] [address] [place] [address] Surgeon Breast Surgery 08/28/23 documented as of this encounter
--- OUTSIDE RECORDS SUMMARY | 2024-08-13 20:12 | XMS_ITS | Encounter Summary ---
Author Organization [facility] Healthcare Address [address] [place] [address] Care Team Providers Care Interpreter Name Role Phone Gucci Manrique MD Primary Care Provider [phone] [place], Concetta Bowden MD Unavailable [phone] Encounter Details Date Type Department Care Team (Late st Contact Info) Description 04/22/2024 Plan of Care Documentation [facility] [address] [address] [address] [place] [id number] Social History Tobacco Use Types Packs/Day Years [...] on file Legal Sex Female 12:12 AM ICE RINK ATTENDANT Gender Identity Not on file Sexual Orientation Not on file 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 [address] DIV MEDICAL ONCOLOGY, [facility] [address] [place] [address] Surgeon Breast Surgery 08/28/23 documented as of this encounter
--- OUTSIDE RECORDS SUMMARY | 2024-08-13 20:12 | XMS_ITS | Encounter Summary ---
Author Organization [facility] Healthcare Address [address] [place] [address] Care Team Providers Care Grinder Set Up Operator Universal Name Role Phone Gucci Manrique MD Primary Care Provider + [phone] QuinwoodConcetta MD Unavailable [phone] Reason for Visit * Medication Authorization (Routine) - Pending Review Specialty Diagnoses / Procedures Referred By Carolina t Referred To Contact Shreya Platt MD [address] [facility] [address] [place] [address] Phone: tel: fax: Referral ID Status Reason Start Date Expiration Date V isits Requested Visits Authorized [id number] Pending Review 06/18/2024 07/18/2025 1 1 Encounter Details Date Type Department Care Team (Latest Contact Info) Description 06/18/2024 9:00 AM CDT Home Care Visit [address] [address] [address] [place] [address] Leonila Grover RN SN INFUSION TREATMENT ROOM Social History [...] on file 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 Gender Identity Not on file Sexual Orientation Not on file 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 on file Not on file Not on file documented as of this encounter Last Filed Vital Signs Vital Sign Reading Time Taken Comments Blood Pressure 101/58 06/18/2024 12:35 PM CDT Pulse 76 06/18/2024 12:35 PM CDT Temperature 37 ??C (98.6 ??F) 06/18/2024 12:35 PM CDT Respiratory Rate 16 06/18/2024 12:35 PM CDT Oxygen Saturation 100% 06/18/2024 12:35 PM CDT Inhaled Oxygen Concentration - - Weight 99.3 kg (219 lb) 06/18/2024 9:15 AM CDT Height - - Body Mass Index 37.59 05/21/2024 9:20 AM CDT documented in this encounter Miscellaneous Notes * Home Health Plan for Next Visit - Leonila Grover RN - 06/18/2024 12:03 PM CDT Reason for today's visit: SNV in [facility] for administration of every 4 week Inflectra over one hour viaPIV. Upon initial and continued assessment, patient with abnormal hypotensive blood pressure readings. Patient reports feelings of increased tiredness and taking naps over past week which is unusual for her. Clinical of note, Pennie is currently 32 weeks with second baby. She follows closely with COMMUNITY THEATER ACTOR Miguel Small. section is planned at 39 weeks. Today Pennie reports feeling baby move multiple times throughout visit. Denies CASTELLON, blurred vision, or dizziness. Call to GI MDand orders to infuse 1L NS over one hour prior to infusion received. Patient tolerated NS well and b/p did increase though still outside parameters of normal. Call back to MD and orders to continue with infliximab infusion received. Infliximab infused without complication or adverse infusion reaction. This RN called COMMUNITY THEATER ACTOR office with notification of abnormal b/p readings. NNO. Patient declines post observation period related to absence of post infusion reactions with any previous and multiple infusion visits. Patient able to verbalize signs of potential reaction and a clear plan to seek assistance if needed. Pennie reports she feels overall well and needs to get home for use of single family car. VSS. PIV removed at end of therapy. Pressure held until hemostasis achieved. Site WNL. Pressure dressing applied for discharge. Patient independently ambulatory from facility. Next visit anticipated in four weeks, scheduled for 07/16/24, for same admin of Inflectra over one hour via PIV. Discussed plan of care and scheduling with Pennie. Discharge planning: Care is ongoing. documented in this encounter Plan of Treatment Not on file documented as of this encounter Visit Diagnoses Not on filedocumented in this encounter Administered Medications Active Administered Medications - up to 3 most recent administrations Medication Order MAR Action Action Date Dose Rate Site 0.9 % sodium chloride ([facility] sodium chloride 0.9%) injection 10 mL, intravenous, As needed, line care, Starting on Sun06/18/24 at 1100, Indications: Maintain Patency of Indwelling Vascular CatheterIndications:Maintain Patency of Indwelling Vascular Catheter Given 06/18/2024 12:30 PM CDT 10 mL Given 06/18/2024 9:58 AM CDT 10 mL Inactive Administered Medications - up to 3 most recent administrations Medication Order MAR Action Action Date Dose Rate Site 0.9 % sodium chloride (SODIUM CHLORIDE 0.9 % IV) 1,000 mL, intravenous, Once, On Sun06/18/24 at 1300, Infuse one liter 0.9% NS intravenously over one hour at 1000ml one time prior to infliximab infusion as needed for hypotension. Assess B/P for return to WNL prior to infliximab. , Indications: hypotension prior to infliximabIndications:hypotensi on prior to infliximab Given 06/18/2024 10:00 AM CDT 1,000 mL inFLIXimab-dyyb 500 mg in sodium chloride 0.9% 0.9% IVPB 500 mg, intravenous, Every 4 weeks, First dose on Sun06/18/24 at 1300, For 170 days, Infuse 500mg Infliximab in 250mL Normal Saline over 1 hour with 1.2 micron filter every 4 weeks., Indications: Crohn's DiseaseIndications:Crohn's Disease Given 06/18/2024 11:30 AM CDT 500 mg documented in this encounter Home Health Visit - Care Plan Visit Details Visit Type -SN Infusion Gail tment Room Discipline -Mcc Problems Problem Description Start Date Status Goals Interve ntions Medications Disciplines: Mcc Management of medications 10/28/2023 Active 1 goal linked to scheduled/documen mauricio intervention 1 goal intervention scheduled/documen mauricio in this visit Monitor patient's vital signs every home health visit Disciplines: Skilled Disciplines, SN, PT, OT, COMPUTER SYSTEMS SECURITY ADMINISTRATOR, WATER TREATMENT PLANT OPERATOR Monitor patient's vital signs every visit. 10/28/2023 Active 1 goal linked to scheduled/documen mauricio intervention 2 goal interventions scheduled/documen mauricio in this visit Safety concerns Disciplines: Skilled Disciplines Alteration in safety 10/28/2023 Active 1 goal linked to scheduled/documen mauricio intervention 1 goal intervention scheduled/documen mauricio in this visit Specialty Medication - General Disciplines: Mcc Skilled Nurse to provide safe assessment of patient prior to use of general specialty medication 10/28/2023 Active - 3 problem interventions scheduled/documen mauricio in this visit Medications Disciplines: Mcc Management of IV Medications 10/28/2023 Active - 1 problem intervention scheduled/documen mauricio in this visit Learning/Teachin g Needs - IV Therapy Disciplines: Mcc Teaching and learning needs for IV therapy [...] Goal:Understand and follow medication therapy Completed Patient verbalizes understanding. Monitor Vital Signs Description: Monitor blood pressure, pulse, oxygen saturation, respirations, and temperature. Problem:Monitor patient's vital signs every home health visit Goal:Measure vital signs during every home health visit during episode of care Completed Supervising Discipline notification of abnormal vital signs Description: Use standardized clinical guidelines of abnormal vitals signs to report to supervising discipline. (HR 50-110, SBP 90-160, DBP 40-90, O2Sat 88-100%, temporal temp less than 101.5) Problem:Monitor patient's vital signs every home health visit Goal:Measure vital signs during every home health visit during episode of care Completed Contacted MD Fernandez office ([phone]) and spoke with Sakina, office nurse and Irais Brody SURGICAL ELASTIC KNITTER regarding blood pressure readings outside of normal limits. Range 88/45 - 99/47. Order received to infuse 1L NS over one hour prior to initiation of infliximab. Post NS infusion b/p increased to 101/54 in right arm per manual regular adult cuff reading. Contact made and order to infuse infliximab received from Alessia CESAR. Patient to notify COMMUNITY THEATER ACTOR of abnormal readings r/t status for continued monitoring. Assess safety Description: Assess patient safety Problem:Safety concerns Goal:Demonstrate use of safety precautions Completed SNV in [facility] for routine maintanance of chronic condition. No safety concerns identified. Patient independent at home. Patient independent post infusion completion. Learning Teaching Needs Description: Skilled Nurse to monitor vital signs throughout the infusion and upon completion of the infusion. Skilled Nurse to assess patient following infusion. If stable, patient may be discharged home. Problem:Specialty Medication - General Completed Pre Medication Assessment Description: Skilled Nurse to complete infusion checklist. Skilled Nurse to monitor vital signs. If patients has a temperature greater than 100 degrees F (37.8 C), notify the pharmacist/physician. Skilled Nurse to obtain IV access for infusion. Problem:Specialty Medication - General Completed Learning Teaching Needs Description: Skilled Nurse to instruct patient on the potential side effects of the medication. Problem:Specialty Medication - General Completed Patient verbalizes understanding. Instruct on Medication Management Description: Instruct patient in medication administration, purpose, dosages, preparation, scheduling, side effects, food/drug interactions, drug allergies, and potential complications. Medications instructed on: Inflectra. Problem:Medications Completed Home med list reviewed. Patient isn't taking iron supplement because of constipation side effects. Note sent to MD. No severe interactions with existing med list. Pennie does not take acetaminophen and loratidine premds to infliximab having had no reported side effects. She reports she doesn't feel any different when she takes t hem and when she doesn't so prefers to not take them. This dispense from pharmacy sent with Pennie. Instruct Infection Prevention Description: Instruct patient in strategies to prevent infection: frequent/proper hand-washing techniques, [place] precautions, avoid crowds and persons with known infections, staying current with immunizations, s/s of infection, use of antibiotics and encourage adequate diet and fluid intake. Instruct patient on how to recognize signs and symptoms of infection and when to notify HH nurse and/or physician. Problem:Learning/Teac adi Needs - IV Therapy Completed Patient verbalizes understanding. IV Pump Instruction Description: Instruct patient to use call button if IV becomes painful, or swelling/redness occur at IV site, or if pump alarms during infusion. Call button will be kept within reach of patient throughout infusion. Problem:Learning/Teac adi Needs - IV Therapy Completed Call light remains within each of patient. IV Access Care/Maintenance Description: Skilled Nurse will [...] adi Needs - IV Therapy Completed PIV initiated to administer IV therapy. Pt tolerated well. lPIV removed at end of therapy. Pressure held until hemostasis achieved. Site WNL. Pressure dressing applied for discharge. IV Discontinuation Description: Skilled Nurse will remove PIV following infusion per MD order and facility protocol, verifying catheter is intact, applying pressure to site until hemostasis is achieved and apply small gauze dressing secured with tape to site. Problem:Learning/Teac adi Needs - IV Therapy Completed PIV removed at end of therapy. Pressure held until hemostasis achieved. Site WNL. Pressure dressing applied for discharge. documented in this encounter Care Teams Grinder Set Up Operator Universal Relationship Specialty Start Date End Date Gucci Manrique MD PCP - General Family Medicine 07/06/20 Concetta Diop MD [address] [facility] [address] DIV IM MEDICAL ONCOLOGY, [facility] [address] [place] [address] Surgeon Breast Surgery 08/28/23 documented as of this encounter
--- OUTSIDE RECORDS SUMMARY | 2024-08-13 20:12 | XMS_ITS | Encounter Summary ---
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 Shreya Platt/ Ned Brasher Pharm D Following Pharmacist: Ned Brasher Pharm D Maintain IV access via PIV line with 10ml normal saline for patency per established protocol. Check vital signs (Temp, HR, RR, BP) prior to infusion, every 30 minutes during infusion, and at discharge. Record patient's weight prior to each infusion. Notify physician for a weight gain/loss greater than 10% ([phone]). Current weight as of 10/10/23: 96.2 kg. Premedicate patient 30 minutes before infusion with: 1000mg of Acetaminophen by mouth as needed 10mg of Loratadine by mouth as needed Infuse 500mg (5mg/kg) Infliximab-dyyb (Inflectra) in 250mL Normal Saline over 1 hour [...] time LOT: 6 doses Please provide 1 usp visit every 4 weeks for 26 weeks [...] on filedocumented in this encounter Care Teams Legislative Assistant Relationship Specialty Start Date End Date Gucci Manrique MD PCP - General Family Medicine 07/06/20 Concetta Diop MD [address] [facility] [address] DIV IM MEDICAL ONCOLOGY, [facility] [address] [place] [address] Surgeon Breast Surgery 08/28/23 documented as of this encounter
--- OUTSIDE RECORDS SUMMARY | 2024-08-13 20:12 | XMS_ITS | Encounter Summary ---
Author Organization [facility] Healthcare Address [address] [place] [address] Care Team Providers Care County Attorney Name Role Phone Gucci Manrique MD Primary Care Provider + [phone] AbbottConcetta MD Unavailable [phone] Reason for Referral * Medication Authorization (Routine) - Pending Review Specialty Diagnoses / Procedures Referred By Contac t Referred To Contact Shreya Platt MD [address] [address] Phone: tel: fax: Referral ID Status Reason Start Date Expiration Date V isits Requested Visits Authorized [id number] Pending Review 05/05/2024 06/04/2025 1 1 S OVERSEER Encounter Details Date Type Department Care Team (Late st Contact Info) Description 07/27/2024 Orders Only [facility] [address] [place] [address] Jennifer Vences, [facility] Crohn's colitis, other complication (HCC) (Primary Dx); Crohn's colitis, unspecified complication (HCC) Social History Tobacco Use Types Packs/Day Years [...] on file 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 Gender Identity Not on file Sexual Orientation Not on file 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 Not on file Not on file documented as of this encounter Plan of Treatment Not on file documented as of this encounter Visit Diagnoses Diagnosis Crohn's colitis, other complication (HCC)- Primary Crohn's colitis, unspecified complication (HCC) documented in this encounter Orders Medications Ordered That Javier ht Not Have Been Administered Count Last Ordered Date First Ordered Date inFLIXimab-dyyb (INFLECTRA) injection 500 mg 1 07/27/2024 documented in this encounter Care Teams County Attorney Relationship Specialty Start Date End Date Gucci Manrique MD PCP - General Family Medicine 07/06/20 AbbottConcetta MD [address] [facility] [address] DIV IM MEDICAL ONCOLOGY, [id number] [place] [address] Surgeon Breast Surgery 08/28/23 documented as of this encounter
--- OUTSIDE RECORDS SUMMARY | 2024-08-13 20:12 | XMS_ITS | Encounter Summary ---
Author Organization [facility] Healthcare Address [address] [place] [address] Care Team Providers Care Buildings Painter Name Role Phone Gucci Manrique MD Primary Care Provider + [phone] Cherry, Concetta Bowden MD Unavailable [phone] Reason for Visit * Reason Comments Crohn's Disease * Medication Authorization (Routine) - Pending Review Specialty Diagnoses / Procedures Referred By Contkarthikeyan t Referred To Contact Shreya Platt MD [address] [facility] [address] [place] [address] Phone: tel: fax: Referral ID Status Reason Start Date Expiration Date V isits Requested Visits Authorized [id number] Pending Review 05/21/2024 06/20/2025 1 1 Encounter Details Date Type Department Care Team (Latest Contact Info) Description 05/21/2024 9:00 AM CDT Home Care Visit [facility] [address] [address] [address] [place] [address] Bipin Leiva RN SN INFUSION TREATMENT ROOM [...] on file Legal Sex Female 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 BREAKER 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 Gender Identity Not on file Sexual Orientation Not on file 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 Not on file Not on file documented as of this encounter Last Filed Vital Signs Vital Sign Reading Time Taken Comments Blood Pressure 110/66 05/21/2024 10:49 AM CDT Pulse 103 05/21/2024 10:49 AM CDT Temperature 36.9 ??C (98.5 ??F) 05/21/2024 10:49 AM C DT Respiratory Rate 20 05/21/2024 10:49 AM CDT Oxygen Saturation 100% 05/21/2024 10:49 AM CDT Inhaled Oxygen Concentration - - Weight 99.1 kg (218 lb 6.4 oz) 05/21/2024 9:20 A M CDT Height 162.6 cm (5' 4 ) 05/21/2024 9:20 AM CDT Body Mass Index 37.49 05/21/2024 9:20 AM CDT documented in this encounter Miscellaneous Notes * Home Health Visit Narrative - Bipin Leiva RN - 05/21/2024 12:00 AM CDT Patient Covid screen performed prior to arrival. [...] verbalizes understanding. Next Inflectra infusion scheduled at [place] for 06/18/2024 @ 0900. documented in this encounter Plan of Treatment Not on file documented as of this encounter Visit Diagnoses Not on filedocumented in this encounter Administered Medications Active Administered Medications - up to 3 most recent administrations Medication Order MAR Action Action Date Dose Rate Site 0.9 % sodium chloride ([facility] sodium chloride 0.9%) injection 10 mL, intravenous, As needed, line care, Starting on Sun05/21/24 at 1042, Indications: Maintain Patency of Indwelling Vascular CatheterIndications:Maint ain Patency of Indwelling Vascular Catheter Given 05/21/2024 9:50 AM CDT 10 mL Left Antecubital Inactive Administered Medications - up to 3 most recent administrations Medication Order MAR Action Action Date Dose Rate Site inFLIXimab-dyyb 500 mg in sodium chloride 0.9% 0.9% IVPB 500 mg, intravenous, Every 4 weeks, First dose on Sun05/21/24 at 1515, For 170 days, Infuse 500mg Infliximab in 250mL Normal Saline over 1 hour with 1.2 micron filter every 4 weeks., Indications: Crohn's DiseaseIndications:Crohn' s Disease Given 05/21/2024 9:50 AM CDT 500 mg Left Antecubital documented in this encounter Home Health Visit [...] visit Disciplines: Skilled Disciplines, SN, PT, OT, ALUMINUM WELDER, ASSEMBLY DEPARTMENT SUPERVISOR Monitor patient's vital signs every visit. [...] 10/28/2023 Active - 3 problem interventions scheduled/documen maurciio in this visit Medications Disciplines: Assisted Management [...] strategies to prevent infection: frequent/proper hand-washing techniques, [place] precautions, avoid crowds and persons with known infections, staying current with immunizations, s/s of infection, use of antibiotics and encourage adequate diet and fluid intake. Instruct patient on how to recognize signs and symptoms of infection and when to notify HH nurse and/or physician. Problem:Learning/Teac adi Needs - IV Therapy Completed Instructed patient in strategies to prevent infection: frequent/proper hand-washing techniques, [place] precautions, avoid crowds and persons with known [...] site. documented in this encounter Care Teams Buildings Painter Relationship Specialty Start Date End Date Gucci Manrique MD PCP - General Family Medicine 07/06/20 Concetta Diop MD [address] [facility] [address] DIV MEDICAL ONCOLOGY, [facility] [address] [place] [address] Surgeon Breast Surgery 08/28/23 documented as of this encounter
--- OUTSIDE RECORDS SUMMARY | 2024-08-13 20:12 | XMS_ITS | Encounter Summary ---
Author Organization [facility] Healthcare Address [address] [place] [address] Care Team Providers Care Mate Fishing Vessel Name Role Phone Gucci Manrique MD Primary Care Provider + [phone] [place], Concetta Bowden MD Unavailable [phone] Reason for Visit * Medication Authorization (Routine) - Pending Review Specialty Diagnoses / Procedures Referred By Carolina t Referred To Contact Shreya Platt MD [address] [facility] [address] [place] [address] Phone: tel: fax: Referral ID Status Reason Start Date Expiration Date V isits Requested Visits Authorized Pending Review 01/31/2024 03/01/2025 1 1 Encounter Details Date Type Department Care Team (Latest Contact Info) Description 01/29/2024 9:00 AM CDT Home Care Visit [address] [address] [address] [place] [address] Gregor Ken RN SN INFUSION TREATMENT ROOM [...] on file Legal Sex Female 12:12 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 Gender Identity Not on file Sexual Orientation Not on file 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 Not on file Not on file documented as of this encounter Last Filed Vital Signs Vital Sign Reading Time Taken Comments Blood Pressure 106/56 01/29/2024 10:30 AM CDT Pulse 80 01/29/2024 10:30 AM CDT Temperature 36.7 ??C (98 ??F) 01/29/2024 10:30 AM CDT Respiratory Rate 16 01/29/2024 10:30 AM CDT Oxygen Saturation 99% 01/29/2024 10:30 AM CDT Inhaled Oxygen Concentration - - Weight 94.8 kg (209 lb) 01/29/2024 9:10 AM CDT Height - - Body Mass Index 35.87 10/10/2023 12:29 PM SUPERVISOR DRYING documented in this encounter Miscellaneous Notes * Home Health Plan for Next Visit - Gregor Ken RN - 01/29/2024 10:07 AM CDT Reason for today's visit: Assessment, [...] Dose Rate Site 0.9 % sodium chloride ([facility] sodium chloride 0.9%) injection 10 mL, intravenous, As needed, line care, Starting on [place] 01/31/24 at 1335, Indications: Maintain Patency of Indwelling Vascular CatheterIndications:Maintain Patency of Indwelling Vascular Catheter Given 01/29/2024 10:40 AM CDT 10 mL Given 01/29/2024 9:15 AM CDT 10 mL Inactive Administered Medications - up to 3 most recent administrations Medication Order MAR Action Action Date Dose Rate Site inFLIXimab-dyyb 500 mg in sodium chloride 0.9% 0.9% IVPB 500 mg, intravenous, Every 4 weeks, First dose on [place] 01/31/24 at 1415, For 170 days, Infuse 500mg Infliximab in 250mL Normal Saline over 1 hour with 1.2 micron filter every 4 weeks., Indications: Crohn's DiseaseIndications:Crohn's Disease Given 01/29/2024 9:30 AM CDT 500 mg documented in this encounter Home Health Visit - Care Plan Visit Details Visit Type -SN Infusion Gail tment Room Discipline -Senior Care Problems Problem Description Start Date Status Goals Interve ntions Medications Disciplines: Senior Care Management of medications 10/28/2023 Active 1 goal linked to scheduled/documen mauricio intervention 1 goal intervention scheduled/documen mauricio in this visit Monitor patient's vital signs every home health visit Disciplines: Skilled Disciplines, SN, PT, OT, CENTRAL OFFICE TROUBLE SHOOTER, MANAGER FIELD Monitor patient's vital signs every visit. 10/28/2023 Active 1 goal linked to scheduled/documen mauricio intervention 1 goal intervention scheduled/documen mauricio in this visit Safety concerns Disciplines: Skilled Disciplines Alteration in safety 10/28/2023 Active 1 goal linked to scheduled/documen mauricio intervention 1 goal intervention scheduled/documen mauricio in this visit Specialty Medication - General Disciplines: Senior Care Skilled Nurse to provide safe assessment of patient prior to use of general specialty medication 10/28/2023 Active - 3 problem interventions scheduled/documen mauricio in this visit Medications Disciplines: Senior Care Management of IV Medications 10/28/2023 Active - 1 problem intervention scheduled/documen mauricio in this visit Learning/Teachin g Needs - IV Therapy Disciplines: Senior Care Teaching and learning needs for IV therapy [...] Completed VSS, afebrile with O2 sat at 99%. Assess safety Description: Assess patient safety Problem:Safety concerns Goal:Demonstrate use of safety precautions Completed Patient seen in treatment room at our [place] office but reports feeling safe at home and reports no issues. Learning Teaching Needs Description: Skilled Nurse to monitor vital signs throughout the infusion and upon completion of the infusion. Skilled Nurse to assess patient following infusion. If stable, patient may be discharged home. Problem:Specialty Medication - General Completed Patient tolerated infusion well and will call SN or MD with any issues or problems. Pre Medication Assessment Description: Skilled Nurse to complete infusion checklist. Skilled Nurse to monitor vital signs. If patients has a temperature greater than 100 degrees F (37.8 C), notify the pharmacist/physician. Skilled Nurse to obtain IV access for infusion. Problem:Specialty Medication - General Completed VSS, afebrile with no medication changes and no problems reported with last infusion. Learning Teaching Needs Description: Skilled Nurse [...] strategies to prevent infection: frequent/proper hand-washing techniques, Melber precautions, avoid crowds and persons with known infections, staying current with immunizations, s/s of infection, use of antibiotics and encourage adequate diet and fluid intake. Instruct patient on how to recognize signs and symptoms of infection and when to notify HH nurse and/or physician. Problem:Learning/Teac adi Needs - IV Therapy Completed SN instructed patient in strategies to prevent infection: frequent/proper hand-washing techniques, Melber precautions, avoid crowds and persons with known [...] PIV placed on 1st attempt using a 24 guage cath, med infused, line flushed and cath removed-intact. 2x2 and BandAid placed over the site. Patient tolerated the procedure well. documented in this encounter Care Teams Mate Fishing Vessel Relationship Specialty Start Date End Date Gucci Manrique MD PCP - General Family Medicine 07/06/20 Concetta Diop MD [address] [facility] [address] DIV IM MEDICAL ONCOLOGY, [address] [place] [address] Surgeon Breast Surgery 08/28/23 documented as of this encounter
--- OUTSIDE RECORDS SUMMARY | 2024-08-13 20:12 | XMS_ITS | Clinical Summary ---
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 Indications: Active ferrous sulfate 325 [...] for nonprocreative genetic counseling and testing 10/10/2023 Encounters Date Type Department Care Team Description 07/27/2024 Orders Only [facility] [address] [place] [address] Jennifer Vences [facility] Crohn's colitis, other complication (HCC) (Primary Dx); Crohn's colitis, unspecified complication (HCC) 07/16/2024 9:00 AM JOB 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 Home Care Visit [address] [place] [address] Bipin Leiva RN SN INFUSION TREATMENT ROOM 06/18/2024 9:00 AM CDT Home Care Visit [address] [place] [address] Leonila Grover RN SN INFUSION TREATMENT ROOM 05/21/2024 9:00 AM CDT Home Care Visit [address] [place] [address] Bipin Leiva RN SN INFUSION TREATMENT ROOM 05/21/2024 Home Care Visit [facility] [address] [facility] [address] [place] [address] Bipin Leiva, AMADOU CASE COMMUNICATION 05/21/2024 Orders Only [facility] [address] [place] [address] Troy Ryan RPh from Last 3 Months Surgical History Surgery Date Site/Laterality Comments WISDOM TOOTH EXTRACTION SECTION 01/31/2023 Medical History Medical History Date Comments Migraines Anemia Family History Medical History Relation Name Comments Breast cancer Cousin cousin once removed Pancreatic cancer Mother's Brother v bile duct Relation Name Status Comments Cousin cousin once removed Alive Mother's Brother Social History Tobacco Use Types Packs/Day Years [...] on file Legal Sex Female 12:12 AM JOB 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 Gender Identity Not on file Sexual Orientation Not on file 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 Not on file Not on file Obstetrics History Last Filed Vital Signs Vital Sign Reading Time Taken Comments Blood Pressure 123/71 07/16/2024 11:38 AM JOB 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 Pulse 82 07/16/2024 11:38 AM JOB 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 Temperature 36.4 ??C (97.6 ??F) 07/16/2024 11:[address] Respiratory Rate 16 07/16/2024 11:38 AM JOB 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 Oxygen Saturation 100% 07/16/2024 11:38 AM JOB 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 Inhaled Oxygen Concentration - - Weight 99.3 kg (219 lb) 06/18/2024 9:15 AM CDT Height 162.6 cm (5' 4 ) 07/16/2024 10:13 AM JOB 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 Body Mass Index 37.59 05/21/2024 9:20 AM CDT Plan of Treatment Health Maintenance Due Date Last Done Comments Cervical Cancer Screening 1998 Depression Screening 1998 Hepatitis C Screening 1998 Pneumococcal vaccine <65 (1 of 2 - PCV) 2004 Regular Well Visit/Exam 18-64 2016 Zoster Vaccine (1 of 2) 2017 DTaP/Tdap/Td Vaccine (7 - Td or Tdap) 01/05/2020 01/04/2010, 03/16/2004, 01/10/2000, Additional history exists Covid-19 Vaccine (2 - Jansse n risk series) 12/24/2020 11/26/2020 Influenza Vaccine (#1) 2024 Varicella Vaccines Completed 02/01/2009, 10/07/1999 HPV Vaccines Completed 01/06/2014, 01/27/2013 Insurance [facility] [place] [address] Care Teams Associate Director Of Nursing Relationship Specialty Start Date End Date Gucci Manrique MD PCP - General Family Medicine 07/06/20 Concetta Diop MD [address] [facility] [address] DIV IM MEDICAL ONCOLOGY, [facility] [address] [place] [address] Surgeon Breast Surgery 08/28/23
--- OUTSIDE RECORDS SUMMARY | 2024-08-13 20:12 | XMS_ITS | Encounter Summary ---
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 Check vital signs (Temp, HR, RR, BP) prior to infusion, every 30 minutes during infusion, and at discharge. Record patient's weight prior to each infusion. Notify physician for a weight gain/loss greater than 10% ([phone]). Current weight as of 06/04/23: 106.6kg. Premedicate patient 30 minutes before infusion with: [...] reactions. LABs: None at this time LOT: (13 doses) through 06/30/24. Please provide 1 jail visit every 4 weeks for 52 weeks for patient assessment, teaching,line access or PIV insertion, drug administration, and lab work with 6 PRN visits for additional drug administrations during induction therapy or for recertifications that fall out of range. Electronically signed by Daniel Celaya [facility] at 10/09/2023 11:06 AM KEEL PRESS OPERATOR * Daniel Celaya [facility] - 10/09/2023 11:05 AM CST FOC: Shreya Platt MD/ Daniel Celaya PharmD Following Pharmacist: Daniel Celaya PharmD [facility] to initiate and maintain IV access via PIV line with 10ml normal saline for patencyper established protocol. For Initial dose (use first dose precautions): Check vital signs (Temp, HR, RR, BP) prior to infusion, every 15 minutes during infusion, at the end of the infusion, and at discharge. For Subsequent doses (if initial dose is without incident): Check vital signs (Temp, HR, RR, BP) prior to infusion, directly after infusion, and at discharge. Infuse 300 mg of Iron Sucrose in 250 ml Normal Saline over 90 minutes at 167 mL/hr. Slow or stop infusion for infusion reactions, treat per facility anaphylaxis protocol in emergency kit and notify Dr. Antunez. Remove IV access at the end of each infusion. Recommend monitoring for1 hour post 1st induction dose (15 minutes for each subsequent dose) for signs/symptoms of infusion reaction. LABs:None at this time. LOT: (3 doses) anticipated end date of 10/23/23. Please provide 1 jail visit every week over 3 weeks for patient assessment, teaching, line access or PIV insertion, drug administration, and lab work with 6 PRN visits for additional drug administrations during induction therapy or for recertifications that fall out of range. Electronically signed by Daniel Celaya [facility] at 10/09/2023 11:09 AM KEEL PRESS OPERATOR documented in this encounter Plan of Treatment Not on file documented as of this encounter Visit Diagnoses Not on filedocumented in this encounter Historical Medications * This list may reflect changes made after this encounter. iron sucrose complex (VENOFER IV)Indications:Lo w Iron Infuse 300 mg into a venous catheter every 7 days Infuse 300 mg of Iron Sucrose in 250 ml Normal Saline over 90 minutes at 167 mL/hr. 09/06/2023 added in this encounter Care Teams Injection Molding Supervisor Relationship Specialty Start Date End Date Gucci Manrique MD PCP - General Family Medicine 07/06/20 Concetta Diop MD [address] [facility] [address] DIV IM MEDICAL ONCOLOGY, [address] [place] [address] Surgeon Breast Surgery 08/28/23 documented as of this encounter
--- OUTSIDE RECORDS SUMMARY | 2024-08-13 20:13 | XMS_ITS | Encounter Summary ---
Author Organization [facility] Home Care Servic es Address [address] [place] [address] Phone Care Team Providers Care Crate Tier Name Role Phone Gucci Manrique MD Primary Care Provider [phone] Reason for Visit * Reason Comments Crohn's Disease * Medication Authorization (Routine) - Closed Specialty Diagnoses / Procedures Referred By Carolina song Referred To Contact Shreya Platt MD [address] [facility] [address] [place] [address] Phone: tel: fax: Referral ID Status Reason Start Date Expiration Date Visits Re quested Visits Authorized [id number] Closed 03/09/2023 04/07/2024 1 1 Encounter Details Date Type Department Care Team (Latest Contact Info) Description 03/09/2023 9:00 AM CDT Home Care Visit [facility] [address] [address] [address] [place] [address] Bipin Leiva RN SN INFUSION TREATMENT ROOM Social History Tobacco Use Types Packs/Day Years Used Date Smoking Tobacco: Never Smokeless Tobacco: Never Alcohol Use Standard Drinks/Week Comments Yes 0 (1 standard drink = 0.6 oz pur e alcohol) OASIS D0700: Social Isolation Answer Da te Recorded Frequency of experiencing loneliness or isolatio n Never 11/02/2022 Comments Unknown Sex and Gender Information Value Date Recorded Sex Assigned at Not on file Legal Sex Female 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 Gender Identity Not on file Sexual Orientation Not on file 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 Not on file Not on file documented as of this encounter Last Filed Vital Signs Vital Sign Reading Time Taken Comments Blood Pressure 112/56 03/09/2023 12:10 PM CDT Pulse 68 03/09/2023 12:10 PM CDT Temperature 36.6 ??C (97.9 ??F) 03/09/2023 1 2:10 PM CDT Respiratory Rate 16 03/09/2023 12:1 0 PM CDT Oxygen Saturation 100% 03/09/2023 12: 10 PM CDT Inhaled Oxygen Concentration - - Weight 115.6 kg (254 lb 12.8 oz) 03/09/2023 9:08 AM CDT Height 162.6 cm (5' 4 ) 03/09/2023 9:08 AM CDT Body Mass Index 43.74 03/09/2023 9:08 AM CDT documented in this encounter Miscellaneous Notes * Home Health Visit Narrative - Bipin Leiva RN - 03/09/2023 12:00 AM CDT Patient Covid screen performed prior to arrival. Assessed patient upon arrival for IV infusion of Inflectra. All findings and vital signs WNL. PIV started without difficulty. No signs/ symptoms of bleeding, hematoma, or infiltration. Pre-medications given prior to infusion as ordered. Infusion completed without incident. Patient's vital signs assessed throughout and upon infusion completion. WNL.PIV removed intact without complications. No signs/ symptoms of bleeding or hematoma. Pressure heldto site until hemostasis achieved. Gauze and paper tape applied to site. Patient's questions answered. Patient discharged to home, ambulatory and in stable condition with instruction to contact MD Olsen if complications occur. Patient verbalizes understanding. documented in this encounter Plan of Treatment Not on file documented as of this encounter Visit Diagnoses Not on filedocumented in this encounter Administered Medications Active Administered Medications - up to 3 most recent administrations Medication Order MAR Action Action Date Dose Rate Site 0.9 % sodium chloride ([facility] sodium chloride 0.9%) injection 10 mL, intravenous, As needed, line care, Starting on 7/14/23 at 1054, Indications: Maintain Patency of Indwelling Vascular CatheterIndications:Maint ain Patency of Indwelling Vascular Catheter Given 03/09/2023 9:40 AM CDT 10 mL Left Antecubital Inactive Administered Medications - up to 3 most recent administrations Medication Order MAR Action Action Date Dose Rate Site acetaminophen (TYLENOL) 500 mg tablet 1,000 mg, oral, Every 4 weeks, First dose on Sun03/09/23 at 1430, Please give 1000mg of acetaminophen (Tylenol) 30 minutes prior to Inflectra infusion, Indications: infusion reaction prophylaxisIndications:in fusion reaction prophylaxis Given 03/09/2023 9:05 AM CDT 1,000 mg inFLIXimab-dyyb 500 mg in sodium chloride 0.9% 0.9% IVPB 500 mg, intravenous, Every 4 weeks, First dose on Sun03/09/23 at 1430, Infuse 500mg Infliximab in 250mL Normal Saline over 2 hours with 1.2 micron filter every 4 weeks., Indications: Crohn's DiseaseIndications:Crohn' s Disease Given 03/09/2023 9:40 AM CDT 500 mg Left Antecubital loratadine 10 mg capsule 10 mg, oral, Every 4 weeks, First dose on Sun03/09/23 at 1430, Please give 10mg of loratadine (Claritin) 30 minutes prior to Inflectra infusion, Indications: infusion reaction prophylaxisIndications:in fusion reaction prophylaxis Given 03/09/2023 9:05 AM CDT 10 mg documented in this encounter Home Health Visit - Care Plan Visit Details Visit Type -SN Infusion Gail tment Room Discipline -Senior Care Problems Problem Description Start Date Status Goals Interve ntions Medications Disciplines: Senior Care Management of medications 11/08/2021 Active 1 goal linked to scheduled/documen mauricio intervention 6 goal interventions scheduled/documen mauricio in this visit Monitor patient's vital signs every home health visit Disciplines: SN, PT, OT, SPLUNK CONSULTANT, HOGSHEAD SALVAGE, Skilled Disciplines Monitor patient's vital signs every visit. 11/08/2021 Active 1 goal linked to scheduled/documen mauricio intervention 2 goal interventions scheduled/documen mauricio in this visit Infection Prevention Disciplines: Skilled Disciplines Infection Prevention 11/08/2021 Active 1 goal linked to scheduled/documen mauricio intervention 1 goal intervention scheduled/documen mauricio in this visit Safety concerns Disciplines: Skilled Disciplines Alteration in safety 11/08/2021 Active 1 goal linked to scheduled/documen mauricio intervention 1 goal intervention scheduled/documen mauricio in this visit Specialty Medication - General Disciplines: Senior Care SN to provide safe assessment of patient prior to use of general specialty medication 11/08/2021 Active - 2 problem interventions scheduled/documen mauricio in this visit Learning/Teachin g Needs - IV Therapy Disciplines: Senior Care Teaching and learning needs for IV therapy 11/08/2021 Active - 4 problem interventions scheduled/documen mauricio [...] vital signs every home health visit No Verbalize signs of infection Description: Patient will demonstrate knowledge of infection prevention strategies by verbalizing signs and symptoms of infection. Infection Prevention No Demonstrate use of safety precautions Description: [...] Goal:Understand and follow medication therapy Completed Patient instructed on medication administration, purpose, dosages, preparation, scheduling, side effects, food/drug interactions, and potential complications. Current regimen and compliance reviewed with Patient. Patient verbalizes understanding of treatment regimen and the importance of adherence. Medications taught Inflectra. Instruct on drug interactions Description: Perform drug interaction screening and instruct patient on severe drug interactions. Notify MD of any severe interactions. Problem:Medications Goal:Understand and follow medication therapy Completed Performed drug interaction screening and instructed patient on drug interactions. Patient verbalized understanding. No severe interactions present. Instruct on high risk medications Description: Skilled Nurse will instruct patient on high-risk/high-alert medications, specifically Inflectra. Problem:Medications Goal:Understand and follow medication therapy Completed Taught high-risk/high-alert medications (specifically Inflectra) with Patient. Patient verbalized understanding. Instruct on medication delivery system Description: Skilled Nurse will instruct patient on medication delivery system and to keep up to date medication list. Problem:Medications Goal:Understand and follow medication therapy Completed Skilled Nurse instructed patient on medication delivery system and to keep up to date medication list. Patient verbalized understanding. Instruct on medication side effects Description: Skilled Nurse will instruct patient to monitor for side effects and adverse reactions. Problem:Medications Goal:Understand and follow medication therapy Completed Skilled Nurse instructed patient to monitor for side effects and adverse reactions. Patient verbalized understanding. Monitor effectiveness of drug therapy Description: Monitor effectiveness of patient's drug therapy. Problem:Medications Goal:Understand and follow medication therapy Completed Patient reports experiencing bright red blood for two days. Advised to contact physician if not resolved following infusion. Patient verbalized understanding. Patient denies having any other Crohn's symptoms. Monitor Vital Signs Description: Monitor blood pressure, pulse, oxygen saturation, respirations and temperature. Problem:Monitor patient's vital signs every home health visit Goal:Measure vital signs during every home health visit during episode of care Completed Monitored blood pressure, pulse, oxygen saturation, respirations and temperature. Supervising Discipline notification of abnormal vital signs Description: Use standardized clinical guidelines of abnormal vitals signs to report to supervising discipline. (SBP 90-160, DBP 40-90, O2Sat 88-100%, temporal temp less than 101.5) Problem:Monitor patient's vital signs every home health visit Goal:Measure vital signs during every home health visit during episode of care Completed Used standardized clinical guidelines of abnormal vitals signs to report to supervising discipline. (SBP 90-160, DBP 40-90, O2Sat 88-100%, temporal temp less than 101.5) Aspects of Care Description: Skilled Nurse will instruct patient on universal precautions and home infection control measures. Problem:Infection Prevention Goal:Verbalize signs of infection Completed Skilled Nurse instructed patient on universal precautions and home infection control measures. Patient verbalized understanding. Assess safety Description: Assess patient safety. Problem:Safety [...] pharmacist/physician. Skilled Nurse to obtain IV access and notify pharmacist when access is obtained. Problem:Specialty Medication - General Completed Skilled Nurse completed infusion checklist. Skilled Nurse monitored vital signs. All VS WNL. Skilled Nurse obtained IV access for infusion. Instruct Infection Prevention Description: Skilled Nurse will instruct patient in strategies to prevent infection: frequent/proper hand-washing techniques, [place] precautions, avoid crowds and persons with known infections, staying current with immunizations, s/s of infection, use of antibiotics and encourage adequate diet and fluid intake. Instruct patient on how to recognize signs and symptoms of infection and when to notify HH nurse and/or physician. Problem:Learning/Teac adi Needs - IV Therapy Completed Patient instructed on frequent/proper hand-washing techniques, [place] precautions, avoid crowds and persons with known infections, staying current with immunizations, s/s of infection, use of antibiotics and encourage adequate diet and fluid intake. Patient verbalizes understanding of strategies to prevent infection. IV Pump Instruction Description: Instruct patient to [...] IV site, or if pump alarms during infusion.Patient verbalized understanding. Call button kept within reach [...] site until hemostasis is achieved and apply adhesive bandage or small gauze dressing secured with tape to site. Problem:Learning/Teac adi Needs - IV Therapy Completed Skilled Nurse removed PIV following infusion per MD order and facility protocol, verifying catheter is intact, applying pressure to site until hemostasis is achieved and applied small gauze dressing secured with tape to site. documented in this encounter Care Teams Crate Tier Relationship Specialty Start Date End Date Gucci Manrique MD PCP - General Family Medicine 07/06/20 documented as of this encounter
--- OUTSIDE RECORDS SUMMARY | 2024-08-13 20:13 | XMS_ITS | Encounter Summary ---
Author Organization [facility] Home Care [facility] es Address [address] [place] [address] Phone Care Team Providers Care Instructional Facilitator Name Role Phone Gucci Manrique MD Primary Care Provider [phone] Reason for Visit * Reason Comments OP Infusion * Medication Authorization (Routine) - Closed Specialty Diagnoses / Procedures Referred By Carolina song Referred To Contact Shreya Platt MD [address] [facility] [address] [place] [address] Phone: tel: fax: Referral ID Status Reason Start Date Expiration Date Visits Re quested Visits Authorized [id number] Closed 05/07/2023 06/05/2024 1 1 Encounter Details Date Type Department Care Team (Latest Contact Info) Description 05/07/2023 9:00 AM CDT Home Care Visit [facility] [address] [address] [address] [place] [address] Dipti Loya RN SN INFUSION TREATMENT ROOM Social History Tobacco Use Types Packs/Day Years Used Date Smoking Tobacco: Never Smokeless Tobacco: Never Alcohol Use Standard Drinks/Week Comments Yes 0 (1 standard drink = 0.6 oz pur e alcohol) OASIS D0700: Social Isolation Answer Da te Recorded Frequency of experiencing loneliness or isolatio n Never 04/27/2023 Comments Unknown Sex and Gender Information Value Date Recorded Sex Assigned at Not on file 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 Gender Identity Not on file Sexual Orientation Not on file 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 Not on file Not on file documented as of this encounter Last Filed Vital Signs Vital Sign Reading Time Taken Comments Blood Pressure 131/68 05/07/2023 12:30 PM CDT Pulse 71 05/07/2023 12:30 PM CDT Temperature 36.8 ??C (98.2 ??F) 05/07/2023 12:30 PM C DT Respiratory Rate 17 05/07/2023 12:30 PM CDT Oxygen Saturation 99% 05/07/2023 12:30 PM CDT Inhaled Oxygen Concentration - - Weight 110.8 kg (244 lb 3 oz) 05/07/2023 10:30 A M CDT Height - - Body Mass Index 41.91 03/09/2023 9:08 AM CDT documented in this encounter Miscellaneous Notes * Home Health Plan for Next Visit - Dipti Loya RN - 05/07/2023 10:53 AM CDT Reason for today's visit assessment, instruction, labs, inflectra infusion per zyno pump Discuss plan of care with pt verb good understanding Discharge planning indef Plan for next visit scheduled for inflectra infusion 06/04/2023 documented in this encounter Plan of Treatment Not on file documented as of this encounter Visit Diagnoses Not on filedocumented in this encounter Administered Medications Active Administered Medications - up to 3 most recent administrations Medication Order MAR Action Action Date Dose Rate Site 0.9 % sodium chloride ([facility] sodium chloride 0.9%) injection 10 mL, intravenous, As needed, line care, Starting on Sun05/07/23 at 1256, Indications: Maintain Patency of Indwelling Vascular CatheterIndications:Maintain Patency of Indwelling Vascular Catheter Given 05/07/2023 9:30 AM CDT 20 mL Inactive Administered Medications - up to 3 most recent administrations Medication Order MAR Action Action Date Dose Rate Site acetaminophen (TYLENOL) 500 mg tablet 1,000 mg, oral, Every 4 weeks, First dose on Sun05/07/23 at 1800, Please give 1000mg of acetaminophen (Tylenol) 30 minutes prior to Inflectra infusion, Indications: infusion reaction prophylaxisIndications:infusion reaction prophylaxis Given 05/07/2023 9:30 AM CDT 1,000 mg diphenhydrAMINE (BENADRYL) 25 mg capsule 25 mg, oral, Every 6 hours PRN, itching, Starting on Sun05/07/23 at 1257, Please give 25mg of diphenhydramine (Benadryl) by mouth 30 minutes prior to Inflectra infusion., Indications: infusion reaction prophylaxisIndications:infusion reaction prophylaxis Given 05/07/2023 9:30 AM CDT 25 mg inFLIXimab-dyyb 500 mg in sodium chloride 0.9% 0.9% IVPB 500 mg, intravenous, Every 4 weeks, First dose on Sun05/07/23 at 1800, Infuse 500mg Infliximab in 250mL Normal Saline over 2 hours with 1.2 micron filter every 4 weeks., Indications: Crohn's DiseaseIndications:Crohn's Disease Given 05/07/2023 10:00 AM CDT 500 mg documented in this encounter Home Health Visit - Care Plan Visit Details Visit Type -SN Infusion Gail tment Room Discipline -Custodial Problems Problem Description Start Date Status Goals Interve ntions Medications Disciplines: Custodial Management of medications 11/08/2021 Active 1 goal linked to scheduled/documen mauricio intervention 6 goal interventions scheduled/documen mauricio in this visit Monitor patient's vital signs every home health visit Disciplines: SN, PT, OT, STONEWORKING BELT SANDER, PHARMACIST MANAGER, Skilled Disciplines Monitor patient's vital signs every visit. 11/08/2021 Active 1 goal linked to scheduled/documen mauricio intervention 1 goal intervention scheduled/documen mauricio in this visit Safety concerns Disciplines: Skilled Disciplines Alteration in safety 11/08/2021 Active 1 goal linked to scheduled/documen mauricio intervention 1 goal intervention scheduled/documen mauricio in this visit Specialty Medication - General Disciplines: Custodial SN to provide safe assessment of patient prior to use of general specialty medication 11/08/2021 Active - 2 problem interventions scheduled/documen mauricio in this visit Learning/Teachin g Needs - IV Therapy Disciplines: Custodial Teaching and learning needs for IV therapy [...] therapy Completed Patient verb good understanding of inflectra [...] strategies to prevent infection: frequent/proper hand-washing techniques, [place] precautions, avoid crowds and persons with known [...] Scheduled documented in this encounter Care Teams Instructional Facilitator Relationship Specialty Start Date End Date Gucci Manrique MD PCP - General Family Medicine 07/06/20 documented as of this encounter
--- OUTSIDE RECORDS SUMMARY | 2024-08-13 20:13 | XMS_ITS | Encounter Summary ---
Author Organization [facility] Home Care Servic es Address [address] [place] [address] Phone Care Team Providers Care Tobacco Stripper Name Role Phone Gucci Manrique MD Primary Care Provider + [phone] Rena Lara, Concetta Bowden MD Unavailable [phone] Reason for Visit * Reason Comments OP Infusion * Medication Authorization (Routine) - Pending Review Specialty Diagnoses / Procedures Referred By Contkarthikeyan t Referred To Contact Shreya Platt MD [address] [address] Phone: tel: fax: Referral ID Status Reason Start Date Expiration Date V isits Requested Visits Authorized [id number] Pending Review 09/06/2023 2024 1 1 Encounter Details Date Type Department Care Team (Latest Contact Info) Description 09/05/2023 9:00 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 FEED HOUSE Home Care Visit [facility] [address] [address] [address] [place] [address] Dipti Loya RN SN INFUSION TREATMENT ROOM [...] file Legal Sex Female 12:12 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 FEED HOUSE Gender Identity Not on file Sexual Orientation Not on file 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 Not on file Not on file documented as of this encounter Last Filed Vital Signs Vital Sign Reading Time Taken Comments Blood Pressure 136/73 09/05/2023 12:00 PM SUPERVISOR FEED HOUSE Pulse 73 09/05/2023 12:00 PM SUPERVISOR FEED HOUSE Temperature 36.9 ??C (98.5 ??F) 09/05/2023 12:[address] Respiratory Rate 17 09/05/2023 12:00 PM SUPERVISOR FEED HOUSE Oxygen Saturation 99% 09/05/2023 12:00 PM SUPERVISOR FEED HOUSE Inhaled Oxygen Concentration - - Weight 103 kg (227 lb) 09/05/2023 10:00 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 FEED HOUSE Height - - Body Mass Index 38.96 07/03/2023 9:15 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 FEED HOUSE documented in this encounter Miscellaneous Notes * Home Health Plan for Next Visit - Dipti Loya RN - 09/05/2023 10:25 AM CST Reason for today's visit assessment, instruction, Inflectra infusion Discuss plan of care with pt verb good understanding Discharge planning indef Plan for next visit scheduled for 10/09/2023 Inflectra infusion [employer] HOUSE documented in this encounter Plan of Treatment Not on file documented as of this encounter Visit Diagnoses Not on filedocumented in this encounter Administered Medications Active Administered Medications - up to 3 most recent administrations Medication Order MAR Action Action Date Dose Rate Site 0.9 % sodium chloride ([facility] sodium chloride 0.9%) injection 10 mL, intravenous, As needed, line care, Starting on Sun09/05/23 at 1026, Indications: Maintain Patency of Indwelling Vascular CatheterIndications:Maintain Patency of Indwelling Vascular Catheter Given 09/05/2023 10:00 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 FEED HOUSE 10 mL Inactive Administered Medications - up to 3 most recent administrations Medication Order MAR Action Action Date Dose Rate Site acetaminophen (TYLENOL) 500 mg tablet 1,000 mg, oral, Every 4 weeks, First dose on [place] 09/06/23 at 1300, Please give 1000mg of acetaminophen (Tylenol) 30 minutes prior to Inflectra infusion, Indications: infusion reaction prophylaxisIndications:infusion reaction prophylaxis Given 09/05/2023 9:30 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 FEED HOUSE 2 tablets inFLIXimab-dyyb 500 mg in sodium chloride 0.9% 0.9% IVPB 500 mg, intravenous, Every 4 weeks, First dose on [place] 09/06/23 at 1300, Infuse 500mg Infliximab in 250mL Normal Saline over 2 hours with 1.2 micron filter every 4 weeks., Indications: Crohn's DiseaseIndications:Crohn's Disease Given 09/05/2023 10:00 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 FEED HOUSE 500 mg loratadine 10 mg capsule 10 mg, oral, Every 4 weeks, First dose on [place] 09/06/23 at 1300, Please give 10mg of loratadine (Claritin) 30 minutes prior to Inflectra infusion, Indications: infusion reaction prophylaxisIndications:infusion reaction prophylaxis Given 09/05/2023 9:30 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 FEED HOUSE 10 mg documented in this encounter Home Health Visit - Care Plan Visit Details Visit Type -SN Infusion Gail community healthnt Room Discipline -Intermediate Problems Problem Description Start Date Status Goals Interve ntions Medications Disciplines: Intermediate Management of medications 11/08/2021 Active 1 goal linked to scheduled/documen mauricio intervention 6 goal interventions scheduled/documen mauricio in this visit Monitor patient's vital signs every home health visit Disciplines: SN, PT, OT, COMPANY MARKER, PRODUCTION MECHANIC TIN CANS, Skilled Disciplines Monitor patient's vital signs every visit. 11/08/2021 Active 1 goal linked to scheduled/documen mauricio intervention 1 goal intervention scheduled/documen mauricio in this visit Safety concerns Disciplines: Skilled Disciplines Alteration in safety 11/08/2021 Active 1 goal linked to scheduled/documen mauricio intervention 1 goal intervention scheduled/documen mauricio in this visit Specialty Medication - General Disciplines: Intermediate SN to provide safe assessment of patient prior to use of general specialty medication 11/08/2021 Active - 2 problem interventions scheduled/documen mauricio in this visit Learning/Teachin g Needs - IV Therapy Disciplines: Intermediate Teaching and learning needs for IV therapy [...] therapy Completed Patient verb good understanding of Inflectra [...] strategies to prevent infection: frequent/proper hand-washing techniques, [place] precautions, avoid crowds and persons with known [...] Scheduled documented in this encounter Care Teams Tobacco Stripper Relationship Specialty Start Date End Date Gucci Manrique MD PCP - General Family Medicine 07/06/20 Concetta Diop MD [address] [facility], [facility] [address] [place] [address] Surgeon Breast Surgery 08/28/23 documented as of this encounter
--- OUTSIDE RECORDS SUMMARY | 2024-08-13 20:13 | XMS_ITS | Encounter Summary ---
Author Organization [facility] Home Care Servic es Address [address] [place] [address] Phone Care Team Providers Care Nib Inspector Name Role Phone Gucci Manrique MD Primary Care Provider [phone] Reason for Visit * Reason Comments Crohn's Disease * Medication Authorization (Routine) - Closed Specialty Diagnoses / Procedures Referred By Carolina song Referred To Contact Shreya Platt MD [address] [facility] [address] [place] [address] Phone: tel: fax: Referral ID Status Reason Start Date Expiration Date Visits Re quested Visits Authorized [id number] Closed 12/14/2022 01/13/2024 1 1 Encounter Details Date Type Department Care Team (Latest Contact Info) Description 12/14/2022 9:00 AM CDT Home Care Visit [facility] [address] [address] [address] [place] [address] Leonila Grover RN SN INFUSION TREATMENT ROOM [...] on file Legal Sex Female 12:12 AM THERMAL ENGINEER Gender Identity Not on file Sexual Orientation Not on file 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 Not on file Not on file documented as of this encounter Last Filed Vital Signs Vital Sign Reading Time Taken Comments Blood Pressure 112/68 12/14/2022 12:42 PM CDT Pulse 75 12/14/2022 12:42 PM CDT Temperature 36.8 ??C (98.2 ??F) 12/14/2022 12:42 PM C DT Respiratory Rate 20 12/14/2022 12:42 PM CDT Oxygen Saturation 96% 12/14/2022 12:42 PM CDT Inhaled Oxygen Concentration - - Weight 113.4 kg (250 lb) 12/14/2022 10:10 AM CDT Height - - Body Mass Index 42.91 11/16/2022 10:05 AM CDT documented in this encounter Plan of Treatment Not on file documented as of this encounter Visit Diagnoses Not on filedocumented in this encounter Administered Medications Active Administered Medications - up to 3 most recent administrations Medication Order MAR Action Action Date Dose Rate Site 0.9 % sodium chloride ([facility] sodium chloride 0.9%) injection 10 mL, intravenous, As needed, line care, Starting on [place] 12/14/22 at 0925, Indications: Maintain Patency of Indwelling Vascular CatheterIndications:Maintain Patency of Indwelling Vascular Catheter Given 12/14/2022 12:40 PM CDT 10 mL Given 12/14/2022 12:20 PM CDT 10 mL Given 12/14/2022 9:25 AM CDT 10 mL Inactive Administered Medications - up to 3 most recent administrations Medication Order MAR Action Action Date Dose Rate Site acetaminophen (TYLENOL) 500 mg tablet 1,000 mg, oral, Every 4 weeks, First dose on Al[place] 12/14/22 at 1030, Please give 1000mg of acetaminophen (Tylenol) 30 minutes prior to Inflectra infusion, Indications: infusion reaction prophylaxisIndications:in fusion reaction prophylaxis Given 12/14/2022 9:28 AM CDT 1,000 mg inFLIXimab-dyyb 500 mg in sodium chloride 0.9% 0.9% IVPB 500 mg, intravenous, Every 4 weeks, First dose on Al[place] 12/14/22 at 1545, Infuse 500mg Infliximab in 250mL Normal Saline over 2 hours with 1.2 micron filter every 4 weeks., Indications: Crohn's DiseaseIndications:Crohn' s Disease Given 12/14/2022 10:04 AM CDT 500 mg Left Antecubital loratadine 10 mg capsule 10 mg, oral, Every 4 weeks, First dose on [place] 12/14/22 at 1030, Please give 10mg of loratadine (Claritin) 30 minutes prior to Inflectra infusion, Indications: infusion reaction prophylaxisIndications:in fusion reaction prophylaxis Given 12/14/2022 9:27 AM CDT 10 mg documented in this encounter Home Health Visit - Care Plan Visit Details Visit Type -SN Infusion Gail tment Room Discipline -Alf Problems Problem Description Start Date Status Goals Interve ntions Medications Disciplines: Alf Management of medications 11/08/2021 Active 1 goal linked to scheduled/documen mauricio intervention 6 goal interventions scheduled/documen mauricio in this visit Monitor patient's vital signs every home health visit Disciplines: SN, PT, OT, SITE SPECIALIST, RECREATION MANAGER, Skilled Disciplines Monitor patient's vital signs every visit. 11/08/2021 Active 1 goal linked to scheduled/documen mauricio intervention 1 goal intervention scheduled/documen mauricio in this visit Infection Prevention Disciplines: Skilled Disciplines Infection Prevention 11/08/2021 Active 1 goal linked to scheduled/documen mauricio intervention 1 goal intervention scheduled/documen mauricio in this visit Safety concerns Disciplines: Skilled Disciplines Alteration in safety 11/08/2021 Active 1 goal linked to scheduled/documen mauricio intervention 1 goal intervention scheduled/documen mauricio in this visit Specialty Medication - General Disciplines: Alf SN to provide safe assessment of patient [...] Problem/Goal Status Variance Visit Notes Instruct on drug interactions Description: Perform drug interaction screening and instruct patient on severe drug interactions. Notify MD of any severe interactions. Problem:Medications Goal:Understand and follow medication therapy Completed Instruct on high risk medications Description: Skilled Nurse will instruct patient on high-risk/high-alert medications, specifically Inflectra. Problem:Medications Goal:Understand and follow medication therapy Completed Skilled Nurse instructed patient on high-risk/high-alert medications, specifically Inflectra. Monitor effectiveness of drug therapy Description: Monitor effectiveness of patient's drug therapy. Problem:Medications Goal:Understand and follow medication therapy Completed Pt denies new or worsening signs or symptoms associated with Crohns disease during time span of last infusion through todays visit Instruct medications Description: Skilled Nurse will instruct patient in medication administration, purpose, dosages, preparation, scheduling, side effects, food/drug interactions, drug allergies, and potential complications. Medication instructed on: Inflectra Problem:Medications Goal:Understand and follow medication therapy Scheduled [...] health visit during episode of care Completed Aspects of Care Description: Skilled Nurse will instruct patient on universal precautions and home infection control measures. Problem:Infection Prevention Goal:Verbalize signs of infection Completed Assess safety Description: Assess patient safety. Problem:Safety concerns Goal:Demonstrate use of safety precautions Scheduled Pre Medication Assessment Description: Skilled Nurse to complete infusion checklist. Skilled Nurse to monitor vital signs. If patients has a temperature greater than 100 degrees F (37.8 C), notify the pharmacist/physician. Skilled Nurse to obtain IV access and notify pharmacist when access is obtained. Problem:Specialty Medication - General Completed Learning Teaching Needs Description: Skilled Nurse to monitor vital signs throughout the infusion and upon completion of the infusion. Skilled Nurse to assess patient following infusion. If stable, patient may be discharged home. Problem:Specialty Medication - General Scheduled IV Access Care/Maintenance Description: Skilled Nurse [...] Problem:Learning/Teac adi Needs - IV Therapy Completed IV Discontinuation Description: Skilled Nurse will remove [...] gauze dressing secured with tape to site. Instruct Infection Prevention Description: Skilled Nurse will instruct patient in strategies to prevent infection: frequent/proper hand-washing techniques, [place] precautions, avoid crowds and persons with known [...] Scheduled documented in this encounter Care Teams Nib Inspector Relationship Specialty Start Date End Date Gucci Manrique MD PCP - General Family Medicine 07/06/20 documented as of this encounter
--- OUTSIDE RECORDS SUMMARY | 2024-08-13 20:13 | XMS_ITS | Encounter Summary ---
Author Organization [facility] Home Care Servic es Address [address] [place] [address] Phone Care Team Providers Care Cable Installer Name Role Phone Gucci Manrique MD Primary Care Provider [phone] Encounter Details Date Type Department Care Team (Late st Contact Info) Description 08/24/2022 Orders Only [facility] [address] [place] [id number] Daniel Celaya [facility] Social History Tobacco Use Types Packs/Day Years Used Date Smoking Tobacco: Never Smokeless Tobacco: Never Alcohol Use Standard Drinks/Week Comments Yes 0 (1 standard drink = 0.6 oz pur e alcohol) Comments Unknown Sex and Gender Information Value Date Recorded Sex Assigned at Not on file Legal Sex Female 12:12 AM ROLLING MACHINE TENDER Gender Identity Not on file Sexual Orientation Not on file 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 MaintainIV access via PIV line with 10ml normal saline for patency per established protocol. Remove IV access at the end of each infusion. Check vital signs (Temp, HR, RR, BP) prior to infusion, every 30 minutes during infusion, and at discharge. Record patient's weight prior to each infusion. Notify physician for a weight gain/loss greater than 10% ([phone]). Current weight as of 07/09/20: 106.6kg. Premedicate patient 30 minutes before infusion with: 1000mg of Acetaminophen by mouth as needed 10mg of Loratadine by mouth as needed Infuse 500mg Infliximab in 250mL Normal Saline over 2 hours with 1.2 micron filter as follows: Rate1: 10ml/hr for 6 min (2ml) Rate2: 20ml/hr for 15 min (5ml) Rate3: 40ml/hr for 15 min (10ml) Rate4: 80ml/hr for 15 min (20ml) Rate5: 150ml/hr for 30 min (75ml) Rate6: 250ml/hr for ~33 min (~138ml) Slow or stop infusion for infusion reaction, treat per facility protocol, and notify Dr. Platt's office. Observe patient for 30 minutes after infusion is completed for urticaria, pruritus, or other infusion related reactions. Treatment Plan: Repeat every 4 weeks for a total of 13 doses. ING MACHINE TENDER documented in this encounter Plan of Treatment Not on file documented as of this encounter Visit Diagnoses Not on filedocumented in this encounter Care Teams Cable Installer Relationship Specialty Start Date End Date Gucci Manrique MD PCP - General Family Medicine 07/06/20 documented as of this encounter
--- OUTSIDE RECORDS SUMMARY | 2024-08-13 20:13 | XMS_ITS | Encounter Summary ---
Author Organization [facility] Home Care Servic es Address [address] [place] [address] Phone Care Team Providers Care Chef Saucier Name Role Phone Gucci Manrique MD Primary Care Provider + [phone] Reason for Visit * Reason Comments Pelvic Pain * Medication Authorization (Routine) - Closed Specialty Diagnoses / Procedures Referred By Carolina song Referred To Contact Shreya Platt MD [address] [facility] [address] [place] [address] Phone: tel: fax: Referral ID Status Reason Start Date Expiration Date Visits Re quested Visits Authorized [id number] Closed 09/21/2022 10/21/2023 1 1 Encounter Details Date Type Department Care Team (Latest Contact Info) Description 09/21/2022 9:00 AM OBSTETRICS NURSE Home Care Visit [facility] [address] [address] [address] [place] [address] Jhon Jurado RN SN INFUSION TREATMENT ROOM Social History Tobacco Use Types Packs/Day Years Used Date Smoking Tobacco: Never Smokeless Tobacco: Never Alcohol Use Standard Drinks/Week Comments Yes 0 (1 standard drink = 0.6 oz pur e alcohol) Comments Unknown Sex and Gender Information Value Date Recorded Sex Assigned at Not on file Legal Sex Female 12:12 AM OBSTETRICS NURSE Gender Identity Not on file Sexual Orientation Not on file 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 Not on file Not on file documented as of this encounter Last Filed Vital Signs Vital Sign Reading Time Taken Comments Blood Pressure 134/68 09/21/2022 12:00 PM OBSTETRICS NURSE Pulse 78 09/21/2022 12:00 PM OBSTETRICS NURSE Temperature 36.6 ??C (97.9 ??F) 09/21/2022 12:[address] Respiratory Rate 16 09/21/2022 12:00 PM OBSTETRICS NURSE Oxygen Saturation 98% 09/21/2022 12:00 PM OBSTETRICS NURSE Inhaled Oxygen Concentration - - Weight - - Height - - Body Mass Index - - documented in this encounter Miscellaneous Notes * Home Health Visit Narrative - Jhon Jurado, RN - 09/21/2022 10:54 AM CST Tolerated inflectra infusion well and without adverse reactions or effects. All vital signs fall within acceptable parameter throughout the infusion. PIV removed after infusion. Next visit has been arranged. Pt verbalizes good understanding of plan of care moving forward. ETRICS NURSE * Home Health Plan for Next Visit - Jhon Jurado, AMADOU - 09/21/2022 10:53 AM CST Reason for today's visit: Inflectra infusion Discuss plan of care with the patient Discharge planning -- none at this time Plan for next visit in 4 weeks for same ETRICS NURSE documented in this encounter Plan of Treatment Not on file documented as of this encounter Visit Diagnoses Not on filedocumented in this encounter Administered Medications Inactive Administered Medications - up to 3 most recent administrations Medication Order MAR Action Action Date Dose Rate Site inFLIXimab-dyyb 500 mg in sodium chloride 0.9% 0.9% IVPB 500 mg, intravenous, Every 4 weeks, First dose on [place] 09/21/22 at 1300, Infuse 500mg Infliximab in 250mL Normal Saline over 2 hours with 1.2 micron filter every 4 weeks., Indications: Crohn's DiseaseIndications:Crohn's Disease Given 09/21/2022 10:30 AM OBSTETRICS NURSE 500 mg documented in this encounter Home Health Visit - Care Plan Visit Details Visit Type -SN Infusion Gail tment Room Discipline -Shelter Problems Problem Description Start Date Status Goals Interve ntions Medications Disciplines: Shelter Management of medications 11/08/2021 Active 1 goal linked to scheduled/documen mauricio intervention 6 goal interventions scheduled/documen mauricio in this visit Monitor patient's vital signs every home health visit Disciplines: SN, PT, OT, CURTAIN DRIER, OUTSIDE DELIVERER, Skilled Disciplines Monitor patient's vital signs every visit. 11/08/2021 Active 1 goal linked to scheduled/documen mauricio intervention 1 goal intervention scheduled/documen mauricio in this visit Safety concerns Disciplines: Skilled Disciplines Alteration in safety 11/08/2021 Active 1 goal linked to scheduled/documen mauricio intervention 1 goal intervention scheduled/documen mauricio in this visit Specialty Medication - General Disciplines: Shelter SN to provide safe assessment of patient prior to use of general specialty medication 11/08/2021 Active - 2 problem interventions scheduled/documen mauricio in this visit Learning/Teachin g Needs - IV Therapy Disciplines: Shelter Teaching and learning needs for IV therapy 11/08/2021 Active - 3 problem interventions scheduled/documen mauricio [...] and follow medication therapy Scheduled Instruct on drug interactions Description: Perform drug [...] care Scheduled Assess safety Description: Assess patient safety. Problem:Safety [...] access is obtained. Problem:Specialty Medication - General Scheduled Instruct Infection Prevention Description: Skilled Nurse will instruct patient in strategies to prevent infection: frequent/proper hand-washing techniques, [place] precautions, avoid crowds and persons with known [...] Scheduled documented in this encounter Care Teams Chef Saucier Relationship Specialty Start Date End Date Gucci Manrique MD PCP - General Family Medicine 07/06/20 documented as of this encounter
--- OUTSIDE RECORDS SUMMARY | 2024-08-13 20:13 | XMS_ITS | Encounter Summary ---
Author Organization [facility] Healthcare Address [address] [place] [address] Care Team Providers Care Senior Gl Accountant Name Role Phone Gucci Manrique MD Primary Care Provider + [phone] Encounter Details Date Type Department Care Team (Late st Contact Info) Description 07/03/2023 Orders Only [facility] [address] [place] [id number] Daniel Celaya, [facility] Social History Tobacco Use Types Packs/Day Years [...] on file Legal Sex Female 12:12 AM SOFTWARE TEST SPECIALIST Gender Identity Not on file Sexual Orientation Not on file 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 Current weight as of 06/04/23: 106.6kg. Premedicate patient 30 minutes before infusion with: 1000mg of Acetaminophen by mouth as needed 10mg of Loratadine by mouth as needed Infuse 500mg (5mg/kg) Infliximab in 250mL Normal Saline over 2 [...] at this time LOT: (13 doses) through 06/30/23. WARE TEST SPECIALIST documented in this encounter Plan of Treatment Not on file documented as of this encounter Visit Diagnoses Not on filedocumented in this encounter Discontinued Medications Medication Sig Discontinue Reason Start Date End Da te diphenhydrAMINE (BENADRYL) 25 mg capsuleIndications:i nfusion reaction prophylaxis Take 25 mg by mouth every 6 (six) hours as needed for itching Please give 25mg of diphenhydramine (Benadryl) by mouth 30 minutes prior to Inflectra infusion. Alternate therapy 07/05/2022 07/03/2023 documented as of this encounter Care Teams Senior Gl Accountant Relationship Specialty Start Date End Date Gucci Manrique MD PCP - General Family Medicine 07/06/20 documented as of this encounter
--- OUTSIDE RECORDS SUMMARY | 2024-08-13 20:13 | XMS_ITS | Encounter Summary ---
Author Organization [facility] Home Care Servic es Address [address] [place] [address] Phone Care Team Providers Care Research Laboratory Technician Name Role Phone Gucci Manrique MD Primary Care Provider [phone] Encounter Details Date Type Department Care Team (Latest Contact Info) Description 11/02/2022 Home Care Visit [facility] Home Health - [address] [place] [address] Alex Rodriguez RN SN NON OASIS RECERTIFICATION Social History [...] file Legal Sex Female 12:12 AM UTILITY PIPE LAYER Gender Identity Not on file Sexual Orientation Not on file 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 Discharge planning Patient will be discharged to self and physician when goals are met and SN no longer needed. Plan for next visit to assess and administer Inflectra as ordered. documented in this encounter Plan of Treatment Not on file documented as of this encounter Visit Diagnoses Not on filedocumented in this encounter Home Health Visit - Care Plan Visit Details Visit Type -SN Non-OASIS Rec ert Discipline -Care Home Problems Problem Description Start Date Status Goals Interve ntions Medications Disciplines: Care Home Management of medications 11/08/2021 Active 1 goal linked to scheduled/documen mauricio intervention 6 goal interventions scheduled/documen mauricio in this visit Monitor patient's vital signs every home health visit Disciplines: SN, PT, OT, CERTIFIED LOW VISION THERAPIST, MEDICAL DEVICE SALES, Skilled Disciplines Monitor patient's vital signs every visit. 11/08/2021 Active 1 goal linked to scheduled/documen mauricio intervention 1 goal intervention scheduled/documen mauricio in this visit Safety concerns Disciplines: Skilled Disciplines Alteration in safety 11/08/2021 Active 1 goal linked to scheduled/documen mauricio intervention 1 goal intervention scheduled/documen mauricio in this visit Specialty Medication - General Disciplines: Care Home SN to provide safe assessment of patient prior to use of general specialty medication 11/08/2021 Active - 2 problem interventions scheduled/documen mauricio in this visit Learning/Teachin g Needs - IV Therapy Disciplines: Care Home Teaching and learning needs for IV therapy [...] strategies to prevent infection: frequent/proper hand-washing techniques, [place] precautions, avoid crowds and persons with known [...] Scheduled documented in this encounter Care Teams Research Laboratory Technician Relationship Specialty Start Date End Date Gucci Manrique MD PCP - General Family Medicine 07/06/20 documented as of this encounter
--- OUTSIDE RECORDS SUMMARY | 2024-08-13 20:13 | XMS_ITS | Encounter Summary ---
Author Organization [facility] Home Care Servic es Address [address] [place] [address] Phone Care Team Providers Care Bridge Worker Apprentice Name Role Phone Gucci Manrique MD Primary Care Provider [phone] Encounter Details Date Type Department Care Team (Late st Contact Info) Description 05/07/2023 Home Care Visit [facility] [address] [address] [address] [place] [address] Marita Harris RN SN TRIAGE ENCOUNTER Social History Tobacco Use Types Packs/Day Years [...] on file Legal Sex Female 12:12 AM MOWER OPERATOR Gender Identity Not on file Sexual Orientation Not on file 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 Shikha Platt. 445pm Return call received from Dr. Shreya Platt. Informed her ofcritical ANC lab result. Follow-up: Dr. Shikha Platt, Minnie Patiño, Charge, Bipin Irais documented in this encounter Plan of Treatment Not on file documented as of this encounter Visit Diagnoses Not on filedocumented in this encounter Home Health Visit - Care Plan Visit Details Visit Type -SN Triage Encoun ter Discipline -Halfway Problems Problem Description Start Date Status Goals Interve ntions Medications Disciplines: Halfway Management of medications 11/08/2021 Active 1 goal linked to scheduled/documen mauricio intervention 6 goal interventions scheduled/documen mauricio in this visit Monitor patient's vital signs every home health visit Disciplines: SN, PT, OT, SPRING FORMER, MISSILE CONTROL PILOT, Skilled Disciplines Monitor patient's vital signs every visit. 11/08/2021 Active 1 goal linked to scheduled/documen mauricio intervention 1 goal intervention scheduled/documen mauricio in this visit Safety concerns Disciplines: Skilled Disciplines Alteration in safety 11/08/2021 Active 1 goal linked to scheduled/documen mauricio intervention 1 goal intervention scheduled/documen mauricio in this visit Specialty Medication - General Disciplines: Halfway SN to provide safe assessment of patient prior to use of general specialty medication 11/08/2021 Active - 2 problem interventions scheduled/documen mauricio in this visit Learning/Teachin g Needs - IV Therapy Disciplines: Halfway Teaching and learning needs for IV therapy [...] strategies to prevent infection: frequent/proper hand-washing techniques, [place] precautions, avoid crowds and persons with known [...] Scheduled documented in this encounter Care Teams Bridge Worker Apprentice Relationship Specialty Start Date End Date Gucic Manrique MD PCP - General Family Medicine 07/06/20 documented as of this encounter
--- OUTSIDE RECORDS SUMMARY | 2024-08-13 20:13 | XMS_ITS | Encounter Summary ---
Author Organization [facility] Home Care Servic es Address [address] [place] [address] Phone Care Team Providers Care Emergency Worker Name Role Phone Gucci Manrique MD Primary Care Provider [phone] Reason for Visit * Reason Comments Crohn's Disease * Medication Authorization (Routine) - Closed Specialty Diagnoses / Procedures Referred By Carolina t Referred To Contact Shreya Platt MD [address] [facility] [address] [place] [address] Phone: tel: fax: Referral ID Status Reason Start Date Expiration Date Visits Re quested Visits Authorized [id number] Closed 02/09/2023 03/10/2024 1 1 Encounter Details Date Type Department Care Team (Latest Contact Info) Description 02/09/2023 9:00 AM CDT Home Care Visit [facility] [address] [address] [address] [place] [address] Bipin Leiva RN SN INFUSION TREATMENT ROOM [...] on file Legal 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 Gender Identity Not on file Sexual Orientation Not on file Occupation Industry Job Start Date Job End Date [employer] Not on file Not on file Not on file documented as of this encounter Last Filed Vital Signs Vital Sign Reading Time Taken Comments Blood Pressure 116/66 02/09/2023 12:15 PM CDT Pulse 79 02/09/2023 12:15 PM CDT Temperature 37.2 ??C (98.9 ??F) 02/09/2023 1 2:15 PM CDT Respiratory Rate 16 02/09/2023 12:1 5 PM CDT Oxygen Saturation 99% 02/09/2023 12: 15 PM CDT Inhaled Oxygen Concentration - - Weight 114.9 kg (253 lb 4.8 oz) 02/09/2023 9:20 AM CDT Height 162.6 cm (5' 4 ) 02/09/2023 9:20 AM CDT Body Mass Index 43.48 02/09/2023 9:20 AM CDT documented in this encounter Miscellaneous Notes * Home Health Visit Narrative - Bipin Leiva RN - 02/09/2023 12:00 AM CDT Patient Covid screen performed [...] Dose Rate Site 0.9 % sodium chloride ([facility] sodium chloride 0.9%) injection 10 mL, intravenous, As needed, line care, Starting on 6/16/23 at 1047, Indications: Maintain Patency of Indwelling Vascular CatheterIndications:Maint ain Patency of Indwelling Vascular Catheter Given 02/09/2023 9:50 AM CDT 10 mL Left Antecubital Inactive Administered Medications - up to 3 most recent administrations Medication Order MAR Action Action Date Dose Rate Site diphenhydrAMINE (BENADRYL) 25 mg capsule 25 mg, oral, Every 6 hours PRN, itching, Starting on Sun02/09/23 at 1047, Please give 25mg of diphenhydramine (Benadryl) by mouth 30 minutes prior to Inflectra infusion., Indications: infusion reaction prophylaxisIndications:infu nicholas reaction prophylaxis Given 02/09/2023 9:20 AM CDT 25 mg inFLIXimab-dyyb 500 mg in sodium chloride 0.9% 0.9% IVPB 500 mg, intravenous, Every 4 weeks, First dose on Sun02/09/23 at 1230, Infuse 500mg Infliximab in 250mL Normal Saline over 2 hours with 1.2 micron filter every 4 weeks., Indications: Crohn's DiseaseIndications:Crohn's Disease Given 02/09/2023 9:50 AM CDT 500 mg Left Antecubital loratadine 10 mg capsule 10 mg, oral, Every 4 weeks, First dose on Sun02/09/23 at 1230, Please give 10mg of loratadine (Claritin) 30 minutes prior to Inflectra infusion, Indications: infusion reaction prophylaxisIndications:infu nicholas reaction prophylaxis Given 02/09/2023 9:50 AM CDT 10 mg documented in this encounter Home Health Visit - Care Plan Visit Details Visit Type -SN Infusion Gail tment Room Discipline -Fdc Problems Problem Description Start Date Status Goals Interve ntions Medications Disciplines: Fdc Management of medications 11/08/2021 Active 1 goal linked to scheduled/documen mauricio intervention 6 goal interventions scheduled/documen mauricio in this visit Monitor patient's vital signs every home health visit Disciplines: SN, PT, OT, RADIO INTERFERENCE TROUBLE SHOOTER, H[employer]LL WIGS, Skilled Disciplines Monitor patient's vital signs every [...] visit Specialty Medication - General Disciplines: Fdc SN to provide safe assessment of patient [...] on drug interactions. Patient verbalized understanding. No interactions present. Instruct on high risk medications Description: Skilled Nurse will instruct patient on high-risk/high-alert medications, specifically Inflectra. Problem:Medications Goal:Understand and follow medication therapy Completed Taught high-risk/high-alert medications (specifically Inflectra ) with Patient. Patient verbalized understanding. Instruct on [...] and follow medication therapy Completed Patient reports no signs/symptoms of CD or any adverse effects of medications. Monitor Vital Signs Description: Monitor blood pressure, [...] strategies to prevent infection: frequent/proper hand-washing techniques, [place] precautions, avoid crowds and persons with known infections, staying current with immunizations, s/s of infection, use of antibiotics and encourage adequate diet and fluid intake. Instruct patient on how to recognize signs and symptoms of infection and when to notify HH nurse and/or physician. Problem:Learning/Teac adi Needs - IV Therapy Completed Patient instructed on frequent/proper hand-washing techniques, [place] precautions, avoid crowds and persons with known [...] site. documented in this encounter Care Teams Emergency Worker Relationship Specialty Start Date End Date Gucci Manrique MD PCP - General Family Medicine 07/06/20 documented as of this encounter
--- OUTSIDE RECORDS SUMMARY | 2024-08-13 20:13 | XMS_ITS | Encounter Summary ---
Author Organization [facility] Home Care Servic es Address [address] [place] [address] Phone Care Team Providers Care Beauty Culture Teacher Name Role Phone Gucci Manrique MD Primary Care Provider [phone] Reason for Visit * Reason Comments Crohn's Disease * Medication Authorization (Routine) - Pending Review Specialty Diagnoses / Procedures Referred By Carolina t Referred To Contact Shreya Platt MD [address] [facility] [address] [place] [address] Phone: tel: fax: Referral ID Status Reason Start Date Expiration Date V isits Requested Visits Authorized [id number] Pending Review 08/10/2023 09/08/2024 1 1 Encounter Details Date Type Department Care Team (Latest Contact Info) Description 08/08/2023 9:00 AM GUEST SERVICE AIDE Home Care Visit [facility] [address] [address] [address] [place] [address] Dipti Loya RN SN INFUSION TREATMENT ROOM [...] on file Legal Sex Female 12:12 AM GUEST SERVICE AIDE Gender Identity Not on file Sexual Orientation Not on file Occupation Industry Job Start Date Job End Date [employer] Not on file Not on file Not on file documented as of this encounter Last Filed Vital Signs Vital Sign Reading Time Taken Comments Blood Pressure 129/60 08/08/2023 12:20 PM GUEST SERVICE AIDE Pulse 63 08/08/2023 12:20 PM GUEST SERVICE AIDE Temperature 36.1 ??C (97 ??F) 08/08/2023 12:20 PM GUEST SERVICE AIDE Respiratory Rate 17 08/08/2023 12:20 PM GUEST SERVICE AIDE Oxygen Saturation 100% 08/08/2023 12:20 PM GUEST SERVICE AIDE Inhaled Oxygen Concentration - - Weight 102.5 kg (226 lb) 08/08/2023 10:50 AM GUEST SERVICE AIDE Height - - Body Mass Index 38.79 07/03/2023 9:15 AM GUEST SERVICE AIDE documented in this encounter Miscellaneous Notes * Home Health Plan for Next Visit - Dipti Loya RN - 08/08/2023 10:27 AM CST Reason for today's visit assessment, instruction, inflectra infusion Discuss plan of care with pt verb good understanding Discharge planning indef Plan for next visit scheduled inflectra infusion 09/05/2023 T SERVICE AIDE documented in this encounter Plan of Treatment Not on file documented as of this encounter Visit Diagnoses Not on filedocumented in this encounter Administered Medications Active Administered Medications - up to 3 most recent administrations Medication Order MAR Action Action Date Dose Rate Site 0.9 % sodium chloride ([facility] sodium chloride 0.9%) injection 10 mL, intravenous, As needed, line care, Starting on Sun08/08/23 at 1024, Indications: Maintain Patency of Indwelling Vascular CatheterIndications:Maintain Patency of Indwelling Vascular Catheter Given 08/08/2023 10:20 AM GUEST SERVICE AIDE 10 mL Inactive Administered Medications - up to 3 most recent administrations Medication Order MAR Action Action Date Dose Rate Site acetaminophen (TYLENOL) 500 mg tablet 1,000 mg, oral, Every 4 weeks, First dose on Sun08/10/23 at 0900, Please give 1000mg of acetaminophen (Tylenol) 30 minutes prior to Inflectra infusion, Indications: infusion reaction prophylaxisIndications:infusion reaction prophylaxis Given 08/08/2023 9:50 AM GUEST SERVICE AIDE 2 tablets inFLIXimab-dyyb 500 mg in sodium chloride 0.9% 0.9% IVPB 500 mg, intravenous, Every 4 weeks, First dose on Sun08/10/23 at 0900, Infuse 500mg Infliximab in 250mL Normal Saline over 2 hours with 1.2 micron filter every 4 weeks., Indications: Crohn's DiseaseIndications:Crohn's Disease Given 08/08/2023 10:20 AM GUEST SERVICE AIDE 500 mg loratadine 10 mg capsule 10 mg, oral, Every 4 weeks, First dose on Sun08/10/23 at 0900, Please give 10mg of loratadine (Claritin) 30 minutes prior to Inflectra infusion, Indications: infusion reaction prophylaxisIndications:infusion reaction prophylaxis Given 08/08/2023 9:50 AM GUEST SERVICE AIDE 10 mg documented in this encounter Home [...] home health visit Disciplines: SN, PT, OT, CLASSIFIED AD TAKER, BEHAVIORAL TECHNICIAN, Skilled Disciplines Monitor patient's vital signs every [...] strategies to prevent infection: frequent/proper hand-washing techniques, [place] precautions, avoid crowds and persons with known [...] Scheduled documented in this encounter Care Teams Beauty Culture Teacher Relationship Specialty Start Date End Date Gucci Manrique MD PCP - General Family Medicine 07/06/20 documented as of this encounter
--- OUTSIDE RECORDS SUMMARY | 2024-08-13 20:13 | XMS_ITS | Encounter Summary ---
Author Organization [facility] Home Care Servic es Address [address] [place] [address] Phone Care Team Providers Care Hand Molder And Caster Name Role Phone Gucci Manrique MD Primary Care Provider [phone] Reason for Visit * Medication Authorization (Routine) - Closed Specialty Diagnoses / Procedures Referred By Contkarthikeyan t Referred To Contact hSreya Platt MD [address] [address] Phone: tel: fax: Referral ID Status Reason Start Date Expiration Date Visits Re quested Visits Authorized [id number] Closed 06/04/2023 07/03/2024 1 1 Encounter Details Date Type Department Care Team (Latest Contact Info) Description 06/04/2023 9:00 AM CDT Home Care Visit [facility] Health [address] [address] [address] [place] [address] Gregor Ken RN SN INFUSION TREATMENT ROOM [...] on file Legal 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 Gender Identity Not on file Sexual Orientation Not on file 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 on file Not on file Not on file documented as of this encounter Last Filed Vital Signs Vital Sign Reading Time Taken Comments Blood Pressure 102/64 06/04/2023 11:30 AM CDT Pulse 72 06/04/2023 11:30 AM CDT Temperature 36.4 ??C (97.6 ??F) 06/04/2023 11:30 AM C DT Respiratory Rate 16 06/04/2023 11:30 AM CDT Oxygen Saturation 97% 06/04/2023 11:30 AM CDT Inhaled Oxygen Concentration - - Weight 106.6 kg (235 lb) 06/04/2023 9:30 AM CDT Height - - Body Mass Index 40.34 03/09/2023 9:08 AM CDT documented in this encounter Miscellaneous Notes * Home Health Visit Narrative - Gregor Ken RN - 06/04/2023 12:17 PM CDT Patient doing well but was concerned after last appointment and labs were done which showed a low WBC and patient has not been rechecked. MD office called and Dr. Platt asked for a CBC, CMP and CRP to be drawn today. Labs were obtained and sent for processing. Infusion went well with next on orabout 07/03/23. * Home Health Plan for Next Visit - Gregor Ken RN - 06/04/2023 10:00 AM CDT Reason for today's visit: Assess, PIV, Labs and dose med. Discuss plan of care with patient. Discharge planning ongoing Plan for next visit: Assess, PIV, emergency medical dispatcher documented in this encounter Plan of Treatment Not on file documented as of this encounter Visit Diagnoses Not on filedocumented in this encounter Administered Medications Active Administered Medications - up to 3 most recent administrations Medication Order MAR Action Action Date Dose Rate Site 0.9 % sodium chloride ([facility] sodium chloride 0.9%) injection 10 mL, intravenous, As needed, line care, Starting on 06/04/23 at 1113, Indications: Maintain Patency of Indwelling Vascular CatheterIndications:Maintain Patency of Indwelling Vascular Catheter Given 06/04/2023 11:50 AM CDT 10 mL Given 06/04/2023 9:30 AM CDT 10 mL Inactive Administered Medications - up to 3 most recent administrations Medication Order MAR Action Action Date Dose Rate Site acetaminophen (TYLENOL) 500 mg tablet 1,000 mg, oral, Every 4 weeks, First dose on Sun06/04/23 at 1300, Please give 1000mg of acetaminophen (Tylenol) 30 minutes prior to Inflectra infusion, Indications: infusion reaction prophylaxisIndications:infusion reaction prophylaxis Given 06/04/2023 9:00 AM CDT 1,000 mg inFLIXimab-dyyb 500 mg in sodium chloride 0.9% 0.9% IVPB 500 mg, intravenous, Every 4 weeks, First dose on Sun06/04/23 at 1300, Infuse 500mg Infliximab in 250mL Normal Saline over 2 hours with 1.2 micron filter every 4 weeks., Indications: Crohn's DiseaseIndications:Crohn's Disease Given 06/04/2023 9:30 AM CDT 500 mg documented in this encounter Home Health Visit - Care Plan Visit Details Visit Type -SN Infusion Gail tment Room Discipline -Intermediate Problems Problem Description Start Date Status Goals Interve ntions Medications Disciplines: Intermediate Management of medications 11/08/2021 Active 1 goal linked to scheduled/documen mauricio intervention 6 goal interventions scheduled/documen mauricio in this visit Monitor patient's vital signs every home health visit Disciplines: SN, PT, OT, TOGGLER, HARD ROCK MINER, Skilled Disciplines Monitor patient's vital signs every [...] allergies, and potential complications. Medication instructed on: Infliximab Instruct on medication delivery system Description: Skilled Nurse will instruct patient on medication delivery system and to keep up to date medication list. Problem:Medications Goal:Understand and follow medication therapy Completed SN instructed patient on medication delivery system and to keep up to date medication list. Instruct on medication side effects Description: Skilled Nurse will instruct patient to monitor for side effects and adverse reactions. Problem:Medications Goal:Understand and follow medication therapy Completed SN instructed patient to monitor for side effects and adverse reactions. Monitor effectiveness of drug therapy Description: Monitor effectiveness of patient's drug therapy. Problem:Medications Goal:Understand and follow medication therapy Completed Patient doing well between doses. Instruct on drug interactions Description: Perform drug [...] during episode of care Completed Patients VSS, afebrile. Assess safety Description: Assess patient safety. Problem:Safety concerns Goal:Demonstrate use of safety precautions Completed Patient doing well and feels safe at home. Pre Medication Assessment Description: Skilled Nurse to complete infusion checklist. Skilled Nurse to monitor vital signs. If patients has a temperature greater than 100 degrees F (37.8 C), notify the pharmacist/physician. Skilled Nurse to obtain IV access for infusion. Problem:Specialty Medication - General Completed VSS, no temp. Learning Teaching Needs Description: Skilled Nurse to monitor vital signs throughout the infusion and upon completion of the infusion. Skilled Nurse to assess patient following infusion. If stable, patient may be discharged home. Problem:Specialty Medication - General Scheduled Instruct Infection Prevention Description: Skilled Nurse will instruct patient in strategies to prevent infection: frequent/proper hand-washing techniques, [place] precautions, avoid crowds and persons with known infections, staying current with immunizations, s/s of infection, use of antibiotics and encourage adequate diet and fluid intake. Instruct patient on how to recognize signs and symptoms of infection and when to notify HH nurse and/or physician. Problem:Learning/Teac adi Needs - IV Therapy Completed SN instructed patient in strategies to prevent infection: frequent/proper hand-washing techniques, [place] precautions, avoid crowds and persons with known infections, staying current with immunizations, s/s of infection, use of antibiotics and encourage adequate diet and fluid intake. Instruct patient on how to recognize signs and symptoms of infection and when to notify HH nurse and/or physician. Patient verbalized understanding. IV Discontinuation Description: Skilled Nurse will remove PIV following infusion per MD order and facility protocol, verifying catheter is intact, applying pressure to site until hemostasis is achieved and apply small gauze dressing secured with tape to site. Problem:Learning/Teac adi Needs - IV Therapy Completed PIV removed-intact after infusion completed. Patient tolerated procedure well. IV Access Care/Maintenance Description: Skilled Nurse will [...] Scheduled documented in this encounter Care Teams Hand Molder And Caster Relationship Specialty Start Date End Date Gucci Manrique MD PCP - General Family Medicine 07/06/20 documented as of this encounter
--- OUTSIDE RECORDS SUMMARY | 2024-08-13 20:13 | XMS_ITS | Encounter Summary ---
Author Organization [facility] Home Care Servic es Address [address] [place] [address] Phone Care Team Providers Care Staple Shear Operator Name Role Phone Gucci Manrique MD Primary Care Provider [phone] Reason for Visit * Medication Authorization (Routine) - Closed Specialty Diagnoses / Procedures Referred By Contkarthikeyan t Referred To Contact Shreya Platt MD [address] [address] Phone: tel: fax: Referral ID Status Reason Start Date Expiration Date Visits Re quested Visits Authorized [id number] Closed 10/19/2022 11/18/2023 1 1 Encounter Details Date Type Department Care Team (Latest Contact Info) Description 10/19/2022 9:00 AM DIRECTOR OF CURRICULUM Home Care Visit [facility] Home Health [address] [address] [address] [place] [address] Kortney Catalan RN SN INFUSION TREATMENT ROOM Social History Tobacco Use Types Packs/Day Years Used Date Smoking Tobacco: Never Smokeless Tobacco: Never Alcohol Use Standard Drinks/Week Comments Yes 0 (1 standard drink = 0.6 oz pur e alcohol) Comments Unknown Sex and Gender Information Value Date Recorded Sex Assigned at Not on file Legal Sex Female 12:12 AM DIRECTOR OF CURRICULUM Gender Identity Not on file Sexual Orientation Not on file 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 Not on file Not on file documented as of this encounter Last Filed Vital Signs Vital Sign Reading Time Taken Comments Blood Pressure 112/68 10/19/2022 12:52 PM DIRECTOR OF CURRICULUM Pulse 77 10/19/2022 12:52 PM DIRECTOR OF CURRICULUM Temperature 37 ??C (98.6 ??F) 10/19/2022 12:52 PM DIRECTOR OF CURRICULUM Respiratory Rate 16 10/19/2022 12:52 PM DIRECTOR OF CURRICULUM Oxygen Saturation 97% 10/19/2022 12:52 PM DIRECTOR OF CURRICULUM Inhaled Oxygen Concentration - - Weight 110.5 kg (243 lb 8 oz) 10/19/2022 9:25 AM DIRECTOR OF CURRICULUM Height 162.6 cm (5' 4 ) 10/19/2022 9:25 AM DIRECTOR OF CURRICULUM Body Mass Index 41.8 10/19/2022 9:25 AM DIRECTOR OF CURRICULUM documented in this encounter Miscellaneous Notes * Home Health Plan for Next Visit - Kortney Catalan RN - 10/19/2022 10:18 AM CST Reason for today's visit assessments, peripheral IV placement, and medication administration Discuss plan of care with patient Discharge planning when [facility] is no longer needed Plan for next visit assessments, peripheral IV placement, and medication administration. CTOR OF CURRICULUM documented in this encounter Plan of Treatment Not on file documented as of this encounter Visit Diagnoses Not on filedocumented in this encounter Administered Medications Active Administered Medications - up to 3 most recent administrations Medication Order MAR Action Action Date Dose Rate Site 0.9 % sodium chloride ([facility] sodium chloride 0.9%) injection 10 mL, intravenous, As needed, line care, Starting on Sun10/19/22 at 0949, Indications: Maintain Patency of Indwelling Vascular CatheterIndications:Maintain Patency of Indwelling Vascular Catheter Given 10/19/2022 9:20 AM DIRECTOR OF CURRICULUM 30 mL Inactive Administered Medications - up to 3 most recent administrations Medication Order MAR Action Action Date Dose Rate Site acetaminophen (TYLENOL) 500 mg tablet 1,000 mg, oral, Every 4 weeks, First dose on [place] 10/19/22 at 1200, Please give 1000mg of acetaminophen (Tylenol) 30 minutes prior to Inflectra infusion, Indications: infusion reaction prophylaxisIndications:infusion reaction prophylaxis Given 10/19/2022 9:35 AM DIRECTOR OF CURRICULUM 1,000 mg inFLIXimab-dyyb 500 mg in sodium chloride 0.9% 0.9% IVPB 500 mg, intravenous, Every 4 weeks, First dose on [place] 10/19/22 at 1200, Infuse 500mg Infliximab in 250mL Normal Saline over 2 hours with 1.2 micron filter every 4 weeks., Indications: Crohn's DiseaseIndications:Crohn's Disease Given 10/19/2022 10:11 AM DIRECTOR OF CURRICULUM 500 mg loratadine 10 mg capsule 10 mg, oral, Every 4 weeks, First dose on [place] 10/19/22 at 1200, Please give 10mg of loratadine (Claritin) 30 minutes prior to Inflectra infusion, Indications: infusion reaction prophylaxisIndications:infusion reaction prophylaxis Given 10/19/2022 9:35 AM DIRECTOR OF CURRICULUM 10 mg documented in this encounter Home Health Visit - Care Plan Visit Details Visit Type -SN Infusion Gail tment Room Discipline -Long Term Problems Problem Description Start Date Status Goals Interve ntions Medications Disciplines: Long Term Management of medications 11/08/2021 Active 1 goal linked to scheduled/documen mauricio intervention 6 goal interventions scheduled/documen mauricio in this visit Monitor patient's vital signs every home health visit Disciplines: SN, PT, OT, CORNER TRIMMER OPERATOR, NURSE OFFICE, Skilled Disciplines Monitor patient's vital signs every [...] this visit Specialty Medication - General Disciplines: Long Term SN to provide safe assessment of patient prior to use of general specialty medication 11/08/2021 Active - 2 problem interventions scheduled/documen mauricio in this visit Learning/Teachin g Needs - IV Therapy Disciplines: Long Term Teaching and learning needs for IV therapy [...] Problem:Medications Goal:Understand and follow medication therapy Completed Medications reviewed. Patient expressed good understanding. Instruct on high risk medications Description: Skilled Nurse will instruct patient on high-risk/high-alert medications, specifically Inflectra. Problem:Medications Goal:Understand and follow medication therapy Completed Inflectra reviewed. Patient expressed appropriate understanding Instruct on medication side effects Description: Skilled Nurse will instruct patient to monitor for side effects and adverse reactions. Problem:Medications Goal:Understand and follow medication therapy Completed Patient expressed appropriate understanding of side effects, and signs of infusion reaction and when to call , Agency, . Monitor effectiveness of drug therapy Description: Monitor effectiveness of patient's drug therapy. Problem:Medications Goal:Understand and follow medication therapy Completed Pt reported she feels like she is ready for infusion whenever it is getting close to a scheduled infusion. Instruct on drug interactions Description: Perform [...] Problem:Infection Prevention Goal:Verbalize signs of infection Completed universal precautions and home infection control measures utilized and demonstrated during Treatment Room visit for medication administration. Assess safety Description: Assess patient safety. Problem:Safety concerns Goal:Demonstrate use of safety precautions Completed No concerns related to safety were identified by pt or by SN during this SNV. Pt is safe in Treatment Room for infusion. Learning Teaching Needs Description: Skilled [...] is obtained. Problem:Specialty Medication - General Completed Instruct Infection Prevention Description: Skilled Nurse will instruct patient in strategies to prevent infection: frequent/proper hand-washing techniques, [place] precautions, avoid crowds and persons with known infections, staying current with immunizations, s/s of infection, use of antibiotics and encourage adequate diet and fluid intake. Instruct patient on how to recognize signs and symptoms of infection and when to notify nurse and/or physician. Problem:Learning/Teac adi Needs - IV Therapy Completed Patient expressed appropriate understanding of preventing infections and when to call , Agency, . IV Pump Instruction Description: Instruct patient to use call button if IV becomes painful, or swelling/redness occur at IV site, or if pump alarms during infusion. Call button will be kept within reach of patient throughout infusion. Problem:Learning/Teac adi Needs - IV Therapy Completed IV Access Care/Maintenance Description: Skilled Nurse will [...] Problem:Learning/Teac adi Needs - IV Therapy Completed documented in this encounter Care Teams Staple Shear Operator Relationship Specialty Start Date End Date Gucci Manrique MD PCP - General Family Medicine 07/06/20 documented as of this encounter
--- OUTSIDE RECORDS SUMMARY | 2024-08-13 20:13 | XMS_ITS | Encounter Summary ---
Author Organization [facility] Home Care Servic es Address [address] [place] [address] Phone Care Team Providers Care Plush Brusher Name Role Phone Gucci Manrique MD Primary Care Provider [phone] Reason for Visit * Reason Comments Crohn's Disease * Medication Authorization (Routine) - Closed Specialty Diagnoses / Procedures Referred By Carolina song Referred To Contact Shreya Platt MD [address] [facility] [address] [place] [address] Phone: tel: fax: Referral ID Status Reason Start Date Expiration Date Visits Re quested Visits Authorized [id number] Closed 01/11/2023 02/10/2024 1 1 Encounter Details Date Type Department Care Team (Latest Contact Info) Description 01/11/2023 9:00 AM CDT Home Care Visit [facility] Health [address] [address] [address] [place] [address] Bipin Leiva RN SN INFUSION TREATMENT ROOM [...] on file Legal Sex Female 12:12 AM MACHINE ICER Gender Identity Not on file Sexual Orientation Not on file 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 Not on file Not on file documented as of this encounter Last Filed Vital Signs Vital Sign Reading Time Taken Comments Blood Pressure 123/59 01/11/2023 12:35 PM CDT Pulse 85 01/11/2023 12:35 PM CDT Temperature 37.1 ??C (98.7 ??F) 01/11/2023 12:35 PM C DT Respiratory Rate 16 01/11/2023 12:35 PM CDT Oxygen Saturation 100% 01/11/2023 12:35 PM CDT Inhaled Oxygen Concentration - - Weight - - Height 162.6 cm (5' 4 ) 01/11/2023 10:09 AM CDT Body Mass Index - - documented in this encounter Miscellaneous Notes * Home Health Visit Narrative - Bipin Leiva RN - 01/11/2023 12:00 AM CDT Patient Covid screen performed [...] As needed, line care, Starting on [place] 01/11/23 at 1104, Indications: Maintain Patency of Indwelling Vascular CatheterIndications:Maint ain Patency of Indwelling Vascular Catheter Given 01/11/2023 11:04 AM CDT 10 mL Left Antecubital Inactive Administered Medications - up to 3 most recent administrations Medication Order MAR Action Action Date Dose Rate Site diphenhydrAMINE (BENADRYL) 25 mg capsule 25 mg, oral, Every 6 hours PRN, itching, Starting on [place] 01/11/23 at 1105, Please give 25mg of diphenhydramine (Benadryl) by mouth 30 minutes prior to Inflectra infusion., Indications: infusion reaction prophylaxisIndications:infu nicholas reaction prophylaxis Given 01/11/2023 10:03 AM CDT 25 mg inFLIXimab-dyyb 500 mg in sodium chloride 0.9% 0.9% IVPB 500 mg, intravenous, Every 4 weeks, First dose on [place] 01/11/23 at 1345, Infuse 500mg Infliximab in 250mL Normal Saline over 2 hours with 1.2 micron filter every 4 weeks., Indications: Crohn's DiseaseIndications:Crohn's Disease Given 01/11/2023 10:35 AM CDT 500 mg Left Antecubital loratadine 10 mg capsule 10 mg, oral, Every 4 weeks, First dose on [place] 01/11/23 at 1345, Please give 10mg of loratadine (Claritin) 30 minutes prior to Inflectra infusion, Indications: infusion reaction prophylaxisIndications:infu nicholas reaction prophylaxis Given 01/11/2023 10:03 AM CDT 10 mg documented in this encounter Home Health Visit - Care Plan Visit Details Visit Type -SN Infusion Gail tment Room Discipline -Group Home Problems Problem Description Start Date Status Goals Interve ntions Medications Disciplines: Group Home Management of medications 11/08/2021 Active 1 goal linked to scheduled/documen mauricio intervention 6 goal interventions scheduled/documen mauricio in this visit Monitor patient's vital signs every home health visit Disciplines: SN, PT, OT, CABLE ENGINEER OUTSIDE PLANT, NECKTIE MAKER, Skilled Disciplines Monitor patient's vital signs every [...] this visit Specialty Medication - General Disciplines: Group Home SN to provide safe assessment of patient prior to use of general specialty medication 11/08/2021 Active - 2 problem interventions scheduled/documen mauricio in this visit Learning/Teachin g Needs - IV Therapy Disciplines: Group Home Teaching and learning needs for IV [...] and follow medication therapy Completed Patient reports increased nausea and diarrhea over the past two weeks, increasing as she nears her delivery date. Monitor Vital Signs Description: Monitor blood pressure, [...] Problem:Infection Prevention Goal:Verbalize signs of infection Completed Skilleded Nurse will instruct patient on universal precautions [...] strategies to prevent infection: frequent/proper hand-washing techniques, [place] precautions, avoid crowds and persons with known infections, staying current with immunizations, s/s of infection, use of antibiotics and encourage adequate diet and fluid intake. Instruct patient on how to recognize signs and symptoms of infection and when to notify HH nurse and/or physician. Problem:Learning/Teac adi Needs - IV Therapy Completed Patient instructed on frequent/proper hand-washing techniques, [place] precautions, avoid crowds and persons with known [...] kept within reach of patient throughout infusion. Patient verbalized understanding. IV Access Care/Maintenance Description: Skilled Nurse will [...] site. documented in this encounter Care Teams Plush Brusher Relationship Specialty Start Date End Date Gucci Manrique MD PCP - General Family Medicine 07/06/20 documented as of this encounter
--- OUTSIDE RECORDS SUMMARY | 2024-08-13 20:13 | XMS_ITS | Encounter Summary ---
Author Organization [facility] Home Care Servic es Address [address] [place] [address] Phone Care Team Providers Care Director Of Catering Name Role Phone Gucci Manrique MD Primary Care Provider [phone] Encounter Details Date Type Department Care Team (Late st Contact Info) Description 11/07/2022 Plan of Care Documentation [facility] - [address] [place] [address] Social History Tobacco Use Types Packs/Day Years [...] on file Legal Sex Female 12:12 AM AWNING CRAFTSPERSON Gender Identity Not on file Sexual Orientation Not on file 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 The patient is under my care, and I have authorized the services on this plan of care and will periodically review the plan. documented in this encounter Plan of Treatment Not on file documented as of this encounter Visit Diagnoses Not on filedocumented in this encounter Care Teams Director Of Catering Relationship Specialty Start Date End Date Gucci Manrique MD PCP - General Family Medicine 07/06/20 documented as of this encounter
--- OUTSIDE RECORDS SUMMARY | 2024-08-13 20:13 | XMS_ITS | Encounter Summary ---
Author Organization [facility] Home Care Servic es Address [address] [place] [address] Phone Care Team Providers Care Appliance Repairer Name Role Phone Gucci Manrique MD Primary Care Provider [phone] Reason for Visit * Reason Comments Crohn's Disease * Medication Authorization (Routine) - Closed Specialty Diagnoses / Procedures Referred By Carolina song Referred To Contact Shreya Platt MD [address] [facility] [address] [place] [address] Phone: tel: fax: Referral ID Status Reason Start Date Expiration Date Visits Re quested Visits Authorized [id number] Closed 07/03/2023 08/01/2024 1 1 Encounter Details Date Type Department Care Team (Latest Contact Info) Description 07/03/2023 9:00 AM FAMILY LITERACY COORDINATOR Home Care Visit [facility] Health [address] [address] [address] [place] [address] Bipin Leiva RN SN INFUSION TREATMENT ROOM [...] on file Legal Sex Female 12:12 AM FAMILY LITERACY COORDINATOR Gender Identity Not on file Sexual Orientation Not on file 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 Not on file Not on file documented as of this encounter Last Filed Vital Signs Vital Sign Reading Time Taken Comments Blood Pressure 116/67 07/03/2023 12:00 PM FAMILY LITERACY COORDINATOR Pulse 64 07/03/2023 12:00 PM FAMILY LITERACY COORDINATOR Temperature 36.3 ??C (97.4 ??F) 07/03/2023 12:[address] Respiratory Rate 18 07/03/2023 12:00 PM FAMILY LITERACY COORDINATOR Oxygen Saturation 100% 07/03/2023 12:00 PM FAMILY LITERACY COORDINATOR Inhaled Oxygen Concentration - - Weight - - Height 162.6 cm (5' 4 ) 07/03/2023 9:15 AM FAMILY LITERACY COORDINATOR Body Mass Index - - documented in this encounter Miscellaneous Notes * Home Health Visit Narrative - Bipin Leiva RN - 07/03/2023 12:00 AM FAMILY LITERACY COORDINATOR Patient Covid screen performed prior to arrival. Assessed patient upon arrival for IV infusion of Inflectra. All findings and vital signs WNL. PIV started with difficulty. No signs/ symptoms of bleeding, hematoma, or infiltration. Pre- medications given prior to infusion as ordered. Infusion [...] EMS if complications occur. Patient verbalizes understanding. LY LITERACY COORDINATOR documented in this encounter Plan of Treatment Not on file documented as of this encounter Visit Diagnoses Not on filedocumented in this encounter Administered Medications Active Administered Medications - up to 3 most recent administrations Medication Order MAR Action Action Date Dose Rate Site 0.9 % sodium chloride ([facility] sodium chloride 0.9%) injection 10 mL, intravenous, As needed, line care, Starting on Sun07/03/23 at 1136, Indications: Maintain Patency of Indwelling Vascular CatheterIndications:Maintain Patency of Indwelling Vascular Catheter Given 07/03/2023 9:50 AM FAMILY LITERACY COORDINATOR 10 mL Left Hand Inactive Administered Medications - up to 3 most recent administrations Medication Order MAR Action Action Date Dose Rate Site acetaminophen (TYLENOL) 500 mg tablet 1,000 mg, oral, Every 4 weeks, First dose on Sun07/03/23 at 1245, Please give 1000mg of acetaminophen (Tylenol) 30 minutes prior to Inflectra infusion, Indications: infusion reaction prophylaxisIndications:infusi on reaction prophylaxis Given 07/03/2023 9:10 AM FAMILY LITERACY COORDINATOR 1,000 mg inFLIXimab-dyyb 500 mg in sodium chloride 0.9% 0.9% IVPB 500 mg, intravenous, Every 4 weeks, First dose on Sun07/03/23 at 1245, Infuse 500mg Infliximab in 250mL Normal Saline over 2 hours with 1.2 micron filter every 4 weeks., Indications: Crohn's DiseaseIndications:Crohn's Disease Given 07/03/2023 9:50 AM FAMILY LITERACY COORDINATOR 500 mg Left Hand loratadine 10 mg capsule 10 mg, oral, Every 4 weeks, First dose on Sun07/03/23 at 1245, Please give 10mg of loratadine (Claritin) 30 minutes prior to Inflectra infusion, Indications: infusion reaction prophylaxisIndications:infusi on reaction prophylaxis Given 07/03/2023 9:10 AM FAMILY LITERACY COORDINATOR 10 mg documented in this encounter Home Health Visit - Care Plan Visit Details Visit Type -SN Infusion Gail tment Room Discipline -Halfway Problems Problem Description Start Date Status Goals Interve ntions Medications Disciplines: Halfway Management of medications 11/08/2021 Active 1 goal linked to scheduled/documen mauricio intervention 6 goal interventions scheduled/documen mauricio in this visit Monitor patient's vital signs every home health visit Disciplines: SN, PT, OT, LEGAL MEDIATOR, OUTSIDE CUTTER HAND, Skilled Disciplines Monitor patient's vital signs every visit. 11/08/2021 Active 1 goal linked to scheduled/documen mauricio intervention 2 goal interventions scheduled/documen mauricio in this visit Safety concerns Disciplines: Skilled Disciplines Alteration in safety 11/08/2021 Active 1 goal linked to scheduled/documen maruicio intervention 1 goal intervention scheduled/documen mauricio in [...] and follow medication therapy Completed Patient reports ongoing fatigue and abdominal pain. Has experienced constipation, diarrhea, tenesmus, and occasional bloody stools in the past two weeks. Monitor Vital Signs Description: Monitor blood pressure, [...] than 101.5) Assess safety Description: Assess patient safety. Problem:Safety [...] strategies to prevent infection: frequent/proper hand-washing techniques, [place] precautions, avoid crowds and persons with known infections, staying current with immunizations, s/s of infection, use of antibiotics and encourage adequate diet and fluid intake. Instruct patient on how to recognize signs and symptoms of infection and when to notify HH nurse and/or physician. Problem:Learning/Teac adi Needs - IV Therapy Completed Patient instructed on frequent/proper hand-washing techniques, [place] precautions, avoid crowds and persons with known infections, staying current with immunizations, s/s of infection, use of antibiotics and encourage adequate diet and fluid intake. Patient verbalizes understanding of strategies to prevent infection. IV Access Care/Maintenance Description: Skilled Nurse will [...] site. documented in this encounter Care Teams Appliance Repairer Relationship Specialty Start Date End Date Gucci Manrique MD PCP - General Family Medicine 07/06/20 documented as of this encounter
--- OUTSIDE RECORDS SUMMARY | 2024-08-13 20:13 | XMS_ITS | Encounter Summary ---
Author Organization [facility] Home Care Servic es Address [address] [place] [address] Phone Care Team Providers Care Bloom Conveyor Operator Name Role Phone Gucci Manrique MD Primary Care Provider + [phone] Reason for Visit * Reason Comments Crohn's Disease * Medication Authorization (Routine) - Closed Specialty Diagnoses / Procedures Referred By Carolina song Referred To Contact Shreya Platt MD [address] [facility] [address] [place] [address] Phone: tel: fax: Referral ID Status Reason Start Date Expiration Date Visits Re quested Visits Authorized [id number] Closed 07/27/2022 08/26/2023 1 1 Encounter Details Date Type Department Care Team (Latest Contact Info) Description 07/27/2022 9:00 AM ENTERPRISE PROJECT MANAGER Home Care Visit [facility] [address] [address] [address] [place] [address] Bipin Leiva RN SN INFUSION TREATMENT ROOM Social History Tobacco Use Types Packs/Day Years Used Date Smoking Tobacco: Never Smokeless Tobacco: Never Alcohol Use Standard Drinks/Week Comments Yes 0 (1 standard drink = 0.6 oz pur e alcohol) Comments Unknown Sex and Gender Information Value Date Recorded Sex Assigned at Not on file Legal Sex Female 12:12 AM ENTERPRISE PROJECT MANAGER Gender Identity Not on file Sexual Orientation Not on file 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 file Not on file Not on file documented as of this encounter Last Filed Vital Signs Vital Sign Reading Time Taken Comments Blood Pressure 112/74 07/27/2022 1:04 PM ENTERPRISE PROJECT MANAGER Pulse 76 07/27/2022 1:04 PM ENTERPRISE PROJECT MANAGER Temperature 37.1 ??C (98.7 ??F) 07/27/2022 1:04 PM CS T Respiratory Rate 16 07/27/2022 1:04 PM ENTERPRISE PROJECT MANAGER Oxygen Saturation 98% 07/27/2022 1:04 PM ENTERPRISE PROJECT MANAGER Inhaled Oxygen Concentration - - Weight - - Height 162.6 cm (5' 4 ) 07/27/2022 9:45 AM ENTERPRISE PROJECT MANAGER Body Mass Index - - documented in this encounter Miscellaneous Notes * Home Health Visit Narrative - Bipin Leiva, AMADOU - 07/27/2022 12:00 AM ENTERPRISE PROJECT MANAGER Patient Covid screen performed prior to arrival. [...] Olsen if complications occur. Patient verbalizes understanding. RPRISE PROJECT MANAGER documented in this encounter Plan of Treatment Not on file documented as of this encounter Visit Diagnoses Not on filedocumented in this encounter Administered Medications Active Administered Medications - up to 3 most recent administrations Medication Order MAR Action Action Date Dose Rate Site 0.9 % sodium chloride ([facility] sodium chloride 0.9%) injection 10 mL, intravenous, As needed, line care, Starting on [place] 07/27/22 at 1647, Indications: Maintain Patency of Indwelling Vascular CatheterIndications:Maint ain Patency of Indwelling Vascular Catheter Given 07/27/2022 10:30 AM ENTERPRISE PROJECT MANAGER 10 mL Left Antecubital Inactive Administered Medications - up to 3 most recent administrations Medication Order MAR Action Action Date Dose Rate Site acetaminophen (TYLENOL) 500 mg tablet 1,000 mg, oral, Every 4 weeks, First dose on Alma 07/27/22 at 1800, Please give 1000mg of acetaminophen (Tylenol) 30 minutes prior to Inflectra infusion, Indications: infusion reaction prophylaxisIndications:in fusion reaction prophylaxis Given 07/27/2022 9:55 AM ENTERPRISE PROJECT MANAGER 1,000 mg inFLIXimab-dyyb 500 mg in sodium chloride 0.9% 0.9% IVPB 500 mg, intravenous, Every 4 weeks, First dose on Al[place] 07/27/22 at 1800, Infuse 500mg Infliximab in 250mL Normal Saline over 2 hours with 1.2 micron filter every 4 weeks., Indications: Crohn's DiseaseIndications:Crohn' s Disease Given 07/27/2022 10:30 AM ENTERPRISE PROJECT MANAGER 500 mg Left Antecubital loratadine 10 mg capsule 10 mg, oral, Every 4 weeks, First dose on [place] 07/27/22 at 1800, Please give 10mg of loratadine (Claritin) 30 minutes prior to Inflectra infusion, Indications: infusion reaction prophylaxisIndications:in fusion reaction prophylaxis Given 07/27/2022 9:55 AM ENTERPRISE PROJECT MANAGER 10 mg documented in this encounter Home Health Visit - Care Plan Visit Details Visit Type -SN Infusion Gail tment Room Discipline -Usp Problems Problem Description Start Date Status Goals Interve ntions Medications Disciplines: Usp Management of medications 11/08/2021 Active 1 goal linked to scheduled/documen mauricio intervention 6 goal interventions scheduled/documen mauricio in this visit Monitor patient's vital signs every home health visit Disciplines: SN, PT, OT, SEMICONDUCTOR WAFERS TESTER, STATION AIR TRAFFIC CONTROL SPECIALIST, Skilled Disciplines Monitor patient's vital signs every [...] visit Specialty Medication - General Disciplines: Usp SN to provide safe assessment of patient prior to use of general specialty medication 11/08/2021 Active - 2 problem interventions scheduled/documen mauricio in this visit Learning/Teachin g Needs - IV Therapy Disciplines: Usp Teaching [...] drug interaction screening and instructed patient on severe drug interactions. Patient verbalized understanding. MD aware of severe interactions. Instruct on high risk medications Description: Skilled Nurse will instruct patient on high-risk/high-alert medications, specifically Inflectra. Problem:Medications Goal:Understand and follow medication therapy Completed Teaching High-risk/high-alert medications (specifically Inflectra) with Patient. Patient verbalized [...] therapy Completed Patient reports no signs/symptoms of Crohn's disease or any adverse effects of medications. Monitor [...] VS WNL. Skilled Nurse obtained IV access and notified pharmacist when access was obtained. Instruct Infection Prevention Description: Skilled Nurse will instruct patient in strategies to prevent infection: frequent/proper hand-washing techniques, [place] precautions, avoid crowds and persons with known infections, staying current with immunizations, s/s of infection, use of antibiotics and encourage adequate diet and fluid intake. Instruct patient on how to recognize signs and symptoms of infection and when to notify HH nurse and/or physician. Problem:Learning/Teac adi Needs - IV Therapy Completed Patient instructed on frequent/proper hand-washing techniques, [place] precautions, avoid crowds and persons with known [...] site. documented in this encounter Care Teams Bloom Conveyor Operator Relationship Specialty Start Date End Date Gucci Manrique MD PCP - General Family Medicine 07/06/20 documented as of this encounter
--- OUTSIDE RECORDS SUMMARY | 2024-08-13 20:13 | XMS_ITS | Encounter Summary ---
Author Organization [facility] Home Care Servic es Address [address] [place] [address] Phone Care Team Providers Care Machine Shop Supervisor Name Role Phone Gucci Manrique MD Primary Care Provider + [phone] Encounter Details Date Type Department Care Team (Late st Contact Info) Description 04/27/2023 Plan of Care Documentation [facility] - [address] [place] [address] Social History Tobacco Use Types Packs/Day Years [...] on file Legal Sex Female 12:12 AM BARBACK Gender Identity Not on file Sexual Orientation Not on file 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
--- OUTSIDE RECORDS SUMMARY | 2024-08-13 20:13 | XMS_ITS | Encounter Summary ---
Author Organization [facility] Home Care Servic es Address [address] [place] [address] Phone Care Team Providers Care Rock Duster Name Role Phone Gucci Manrique MD Primary Care Provider [phone] Reason for Visit * Medication Authorization (Routine) - Closed Specialty Diagnoses / Procedures Referred By Contkarthikeyan t Referred To Contact Shreya Platt MD [address] [address] Phone: tel: fax: Referral ID Status Reason Start Date Expiration Date Visits Re quested Visits Authorized [id number] Closed 04/06/2023 05/05/2024 1 1 Encounter Details Date Type Department Care Team (Latest Contact Info) Description 04/06/2023 9:00 AM CDT Home Care Visit [facility] [address] [place] [address] Jhon Jurado RN SN INFUSION TREATMENT ROOM [...] on file Legal Sex Female 12:12 AM NEONATOLOGIST Gender Identity Not on file Sexual Orientation Not on file 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 Not on file Not on file documented as of this encounter Last Filed Vital Signs Vital Sign Reading Time Taken Comments Blood Pressure 145/63 04/06/2023 11:45 AM CDT Pulse 67 04/06/2023 11:45 AM CDT Temperature 36.1 ??C (96.9 ??F) 04/06/2023 11:45 AM C DT Respiratory Rate 16 04/06/2023 11:45 AM CDT Oxygen Saturation 98% 04/06/2023 11:45 AM CDT Inhaled Oxygen Concentration - - Weight - - Height - - Body Mass Index - - documented in this encounter Miscellaneous Notes * Home Health Visit Narrative - Jhon Jurado RN - 04/06/2023 10:19 AM CDT Tolerates inflectra infusion well without adverse reactions or effects. All vital signs fall withinacceptable parameters and the patient is free of distress. Verbalizes good understanding of plan ofcare moving forward. Reports occasional diarrhea and BRBPR. Her armature straightener, Dr. Platt, is aware of these symptoms and Ms. Miner presented to her office for labs last week. PIV removed after infusion. * Home Health Plan for Next Visit - Jhon Jurado, AMADOU - 04/06/2023 10:16 AM CDT Reason for today's visit: Inflectra infusion Discuss plan of care with the patient Discharge planning -- ongoing Plan for next visit in 4 weeks for same documented in this encounter Plan of Treatment Not on file documented as of this encounter Visit Diagnoses Not on filedocumented in this encounter Administered Medications Active Administered Medications - up to 3 most recent administrations Medication Order MAR Action Action Date Dose Rate Site 0.9 % sodium chloride (COUNTS IN[facility]S AT [facility] sodium chloride 0.9%) injection 10 mL, intravenous, As needed, line care, Starting on Sun04/06/23 at 1014, Indications: Maintain Patency of Indwelling Vascular CatheterIndications:Maintain Patency of Indwelling Vascular Catheter Given 04/06/2023 10:14 AM CDT 10 mL Inactive Administered Medications - up to 3 most recent administrations Medication Order MAR Action Action Date Dose Rate Site acetaminophen (TYLENOL) 500 mg tablet 1,000 mg, oral, Every 4 weeks, First dose on Sun04/06/23 at 1445, Please give 1000mg of acetaminophen (Tylenol) 30 minutes prior to Inflectra infusion, Indications: infusion reaction prophylaxisIndications:infusion reaction prophylaxis Given 04/06/2023 10:15 AM CDT 1,000 mg inFLIXimab-dyyb 500 mg in sodium chloride 0.9% 0.9% IVPB 500 mg, intravenous, Every 4 weeks, First dose on Sun04/06/23 at 1445, Infuse 500mg Infliximab in 250mL Normal Saline over 2 hours with 1.2 micron filter every 4 weeks., Indications: Crohn's DiseaseIndications:Crohn's Disease Given 04/06/2023 10:14 AM CDT 500 mg loratadine 10 mg capsule 10 mg, oral, Every 4 weeks, First dose on Sun04/06/23 at 1445, Please give 10mg of loratadine (Claritin) 30 minutes prior to Inflectra infusion, Indications: infusion reaction prophylaxisIndications:infusion reaction prophylaxis Given 04/06/2023 10:14 AM CDT 10 mg documented in this [...] home health visit Disciplines: SN, PT, OT, AUTOMATIC STACKER, PIPE CLEANING MACHINE OPERATOR, Skilled Disciplines Monitor patient's vital signs every [...] problem interventions scheduled/documen mauricio in this visit Learning/Mira g Needs - IV Therapy Disciplines: Long-Term Teaching and learning needs for IV therapy 11/08/2021 Active - 3 problem interventions scheduled/yennifer martínez in this visit Goals Goal Associated [...] Problem/Goal Status Variance Visit Notes Instruct on high risk medications Description: Skilled Nurse will instruct patient on high-risk/high-alert medications, specifically Inflectra. Problem:Medications Goal:Understand and follow medication therapy Completed Teaching High-risk/high-alert medications (specifically inflectra ) with Patient. Instruct medications Description: Skilled Nurse will instruct [...] health visit during episode of care Completed All vital signs fall within acceptable parameters. Assess safety Description: Assess patient safety. Problem:Safety concerns Goal:Demonstrate use of safety precautions Completed Pt and family report that they are safe in the home. Learning Teaching Needs Description: Skilled Nurse to [...] strategies to prevent infection: frequent/proper hand-washing techniques, [place] precautions, avoid crowds and persons with known infections, staying current with immunizations, s/s of infection, use of antibiotics and encourage adequate diet and fluid intake. Instruct patient on how to recognize signs and symptoms of infection and when to notify HH nurse and/or physician. Problem:Learning/Teac adi Needs - IV Therapy Completed Patient instructed on frequent/proper hand-washing techniques, Standard precautions, avoid crowds and persons with known infections, staying current with immunizations, s/s of infection, use of incentive spirometer, use of antibiotics and encourage adequate diet and fluid intake. Patient verbalize knowledge of disease process, causative factors, complication, and management related to. IV Pump Instruction Description: Instruct patient to use call button if IV becomes painful, or swelling/redness occur at IV site, or if pump alarms during infusion. Call button will be kept within reach of patient throughout infusion. Problem:Learning/Teac adi Needs - IV Therapy Completed Zyno pump to be managed by RN during infusion visits. IV Access Care/Maintenance Description: Skilled Nurse will [...] Scheduled documented in this encounter Care Teams Rock Duster Relationship Specialty Start Date End Date Gucci Manrique MD PCP - General Family Medicine 07/06/20 documented as of this encounter
--- OUTSIDE RECORDS SUMMARY | 2024-08-13 20:13 | XMS_ITS | Encounter Summary ---
Author Organization [facility] Home Care Servic es Address [address] [place] [address] Phone Care Team Providers Care Human Service Worker Name Role Phone Gucci Manrique MD Primary Care Provider [phone] Reason for Visit * Reason Comments Crohn's Disease * Medication Authorization (Routine) - Closed Specialty Diagnoses / Procedures Referred By Carolina song Referred To Contact Shreya Platt MD [address] [facility] [address] [place] [address] Phone: tel: fax: Referral ID Status Reason Start Date Expiration Date Visits Re quested Visits Authorized [id number] Closed 08/25/2022 09/24/2023 1 1 Encounter Details Date Type Department Care Team (Latest Contact Info) Description 08/24/2022 9:00 AM ROTARY PEEL OVEN TENDER Home Care Visit 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 Not on file Not on file documented as of this encounter Last Filed Vital Signs Vital Sign Reading Time Taken Comments Blood Pressure 98/60 08/24/2022 2:20 PM ROTARY PEEL OVEN TENDER Pulse 83 08/24/2022 2:20 PM ROTARY PEEL OVEN TENDER Temperature 36.8 ??C (98.3 ??F) 08/24/2022 2:20 PM CS T Respiratory Rate 16 08/24/2022 2:20 PM ROTARY PEEL OVEN TENDER Oxygen Saturation 98% 08/24/2022 2:20 PM ROTARY PEEL OVEN TENDER Inhaled Oxygen Concentration - - Weight - - Height 162.6 cm (5' 4 ) 08/24/2022 10:50 AM ROTARY PEEL OVEN TENDER Body Mass Index - - documented in this encounter Miscellaneous Notes * Home Health Visit Narrative - Bipin Leiva, AMADOU - 08/24/2022 12:00 AM ROTARY PEEL OVEN TENDER Patient Covid screen performed prior to arrival. Assessed patient upon arrival for IV infusion of Inflectra . All findings and vital signs WNL. PIV started without difficulty. No signs/ symptoms of bleeding, hematoma, or infiltration. Pre-medications given prior to infusion as ordered. Infusion completed without incident. Patient's vital signs assessed throughout and upon infusion completion. WNL. PIV removed intact without complications. No signs/ symptoms of bleeding or hematoma. Pressure held to site until hemostasis achieved. Gauze and paper tape applied to site. Patient's questions answered. Patient discharged to home, ambulatory and in stable condition with instruction to contact MD or EMS if complications occur. Patient verbalizes understanding. RY PEEL OVEN TENDER documented in this encounter Plan of Treatment Not on file documented as of this encounter Visit Diagnoses Not on filedocumented in this encounter Administered Medications Active Administered Medications - up to 3 most recent administrations Medication Order MAR Action Action Date Dose Rate Site 0.9 % sodium chloride ([facility] sodium chloride 0.9%) injection 10 mL, intravenous, As needed, line care, Starting on Sun08/25/22 at 1632, Indications: Maintain Patency of Indwelling Vascular CatheterIndications:Maint ain Patency of Indwelling Vascular Catheter Given 08/24/2022 11:35 AM ROTARY PEEL OVEN TENDER 10 mL Left Antecubital Inactive Administered Medications - up to 3 most recent administrations Medication Order MAR Action Action Date Dose Rate Site acetaminophen (TYLENOL) 500 mg tablet 1,000 mg, oral, Every 4 weeks, First dose on Sun08/25/22 at 1730, Please give 1000mg of acetaminophen (Tylenol) 30 minutes prior to Inflectra infusion, Indications: infusion reaction prophylaxisIndications:in fusion reaction prophylaxis Given 08/24/2022 11:05 AM ROTARY PEEL OVEN TENDER 1,000 mg inFLIXimab-dyyb 500 mg in sodium chloride 0.9% 0.9% IVPB 500 mg, intravenous, Every 4 weeks, First dose on Sun08/25/22 at 1730, Infuse 500mg Infliximab in 250mL Normal Saline over 2 hours with 1.2 micron filter every 4 weeks., Indications: Crohn's DiseaseIndications:Crohn' s Disease Given 08/24/2022 11:35 AM ROTARY PEEL OVEN TENDER 500 mg Left Antecubital loratadine 10 mg capsule 10 mg, oral, Every 4 weeks, First dose on Sun08/25/22 at 1730, Please give 10mg of loratadine (Claritin) 30 minutes prior to Inflectra infusion, Indications: infusion reaction prophylaxisIndications:in fusion reaction prophylaxis Given 07/01/2022 4:33 PM CDT 10 mg documented in this encounter Home Health Visit - Care Plan Visit Details Visit Type -SN Infusion Gail tment Room Discipline -Snf Problems Problem Description Start Date Status Goals Interve ntions Medications Disciplines: Snf Management of medications 11/08/2021 Active 1 goal linked to scheduled/documen mauricio intervention 6 goal interventions scheduled/documen mauricio in this visit Monitor patient's vital signs every home health visit Disciplines: SN, PT, OT, VOLUNTEER FIRE FIGHTER, MEAT TEAM MEMBER, Skilled Disciplines Monitor patient's vital signs every [...] this visit Specialty Medication - General Disciplines: Snf SN to provide safe assessment of patient prior to use of general specialty medication 11/08/2021 Active - 2 problem interventions scheduled/documen mauricio in this visit Learning/Teachin g Needs - IV Therapy Disciplines: Snf Teaching and learning needs for IV therapy [...] severe drug interactions. Patient verbalized understanding. MD notified of severe interactions. Instruct on high risk [...] follow medication therapy Completed Patient reports no new or worsening Crohn's symptoms or any adverse effects of medication. Monitor Vital Signs Description: Monitor blood pressure, [...] strategies to prevent infection: frequent/proper hand-washing techniques, [place] precautions, avoid crowds and persons with known infections, staying current with immunizations, s/s of infection, use of antibiotics and encourage adequate diet and fluid intake. Instruct patient on how to recognize signs and symptoms of infection and when to notify HH nurse and/or physician. Problem:Learning/Teac adi Needs - IV Therapy Completed Patient instructed on frequent/proper hand-washing techniques, [place] precautions, avoid crowds and persons with known [...] site. documented in this encounter Care Teams Human Service Worker Relationship Specialty Start Date End Date Gucci Manrique MD PCP - General Family Medicine 07/06/20 documented as of this encounter
--- OUTSIDE RECORDS SUMMARY | 2024-08-13 20:13 | XMS_ITS | Encounter Summary ---
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
--- OUTSIDE RECORDS SUMMARY | 2024-08-13 20:13 | XMS_ITS | Encounter Summary ---
Author Organization [facility] Home Care Servic es Address [address] [place] [address] Phone Care Team Providers Care Blueprint Duplicator Name Role Phone Gucci Manrique MD Primary Care Provider Encounter Details Date Type Department Care Team (Late st Contact Info) Description 07/30/2023 Home Care Visit [facility] [address] [address] [address] [place] [address] Bipin Leiva, AMADOU CASE COMMUNICATION Social History Tobacco Use Types [...] on file Legal Sex Female 12:12 AM HAMMER ADJUSTER Gender Identity Not on file Sexual Orientation Not on file Occupation Industry Job Start Date Job End Date [employer] Not on file Not on file Not on file documented as of this encounter Plan of Treatment Not on file documented as of this encounter Visit Diagnoses Not on filedocumented in this encounter Care Teams Blueprint Duplicator Relationship Specialty Start Date End Date Gucci Manrique MD PCP - General Family Medicine 07/06/20 documented as of this encounter
--- OUTSIDE RECORDS SUMMARY | 2024-08-13 20:13 | XMS_ITS | Encounter Summary ---
Author Organization [facility] Home Care [facility] es Address [address] [place] [address] Phone Care Team Providers Care Legal Records Manager Name Role Phone Gucci Manrique MD Primary Care Provider [phone] Reason for Visit * Reason Comments Crohn's Disease * Medication Authorization (Routine) - Closed Specialty Diagnoses / Procedures Referred By Carolina song Referred To Contact Shreya Platt MD [address] [facility] [address] [place] [address] Phone: tel: fax: Referral ID Status Reason Start Date Expiration Date Visits Re quested Visits Authorized [id number] Closed 11/16/2022 12/16/2023 1 1 Encounter Details Date Type Department Care Team (Latest Contact Info) Description 11/16/2022 9:00 AM CDT Home Care Visit 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 Gender Identity Not on file Sexual Orientation Not on file Occupation Industry Job Start Date Job End Date [employer] Not on file Not on file Not on file documented as of this encounter Last Filed Vital Signs Vital Sign Reading Time Taken Comments Blood Pressure 102/58 11/16/2022 1:15 PM CDT Pulse 89 11/16/2022 1:15 PM CDT Temperature 36.8 ??C (98.2 ??F) 11/16/2022 1:15 PM CD T Respiratory Rate 16 11/16/2022 1:15 PM CDT Oxygen Saturation 99% 11/16/2022 1:15 PM CDT Inhaled Oxygen Concentration - - Weight 114.3 kg (252 lb) 11/16/2022 10:05 AM CDT Height 162.6 cm (5' 4 ) 11/16/2022 10:05 AM CDT Body Mass Index 43.26 11/16/2022 10:05 AM CDT documented in this encounter Miscellaneous Notes * Home Health Visit Narrative - Leonila Grover RN - 11/16/2022 10:42 AM CDT Pt presents to OP infusion center for administration of IV infliximab. 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 Infliximab admin w/o complications. No adverse infusion reactions post 30 minutes observation. documented in this encounter Plan of Treatment Not on file documented as of this encounter Visit Diagnoses Not on filedocumented in this encounter Administered Medications Active Administered Medications - up to 3 most recent administrations Medication Order MAR Action Action Date Dose Rate Site 0.9 % sodium chloride ([facility] sodium chloride 0.9%) injection 10 mL, intravenous, As needed, line care, Starting on [place] 11/16/22 at 1037, Indications: Maintain Patency of Indwelling Vascular CatheterIndications:Maintain Patency of Indwelling Vascular Catheter Given 11/16/2022 12:50 PM CDT 10 mL Given 11/16/2022 10:01 AM CDT 10 mL L eft Antecubital Given 11/16/2022 10:00 AM CDT 10 mL L eft Antecubital Inactive Administered Medications - up to 3 most recent administrations Medication Order MAR Action Action Date Dose Rate Site acetaminophen (TYLENOL) 500 mg tablet 1,000 mg, oral, Every 4 weeks, First dose on [place] 11/16/22 at 1330, Please give 1000mg of acetaminophen (Tylenol) 30 minutes prior to Inflectra infusion, Indications: infusion reaction prophylaxisIndications:in fusion reaction prophylaxis Given 11/16/2022 10:00 AM CDT 1,000 mg inFLIXimab-dyyb 500 mg in sodium chloride 0.9% 0.9% IVPB 500 mg, intravenous, Every 4 weeks, First dose on [place] 11/16/22 at 1330, Infuse 500mg Infliximab in 250mL Normal Saline over 2 hours with 1.2 micron filter every 4 weeks., Indications: Crohn's DiseaseIndications:Crohn' s Disease Given 11/16/2022 10:34 AM CDT 500 mg Left Antecubital loratadine 10 mg capsule 10 mg, oral, Every 4 weeks, First dose on [place] 11/16/22 at 1330, Please give 10mg of loratadine (Claritin) 30 minutes prior to Inflectra infusion, Indications: infusion reaction prophylaxisIndications:in fusion reaction prophylaxis Given 11/16/2022 10:00 AM CDT 10 mg documented in this encounter Home Health Visit - Care Plan Visit Details Visit Type -SN Infusion Gail tment Room Discipline -Detention Problems Problem Description Start Date Status Goals Interve ntions Medications Disciplines: Detention Management of medications 11/08/2021 Active 1 goal linked to scheduled/documen mauricio intervention 6 goal interventions scheduled/documen mauricio in this visit Monitor patient's vital signs every home health visit Disciplines: SN, PT, OT, MICROSOFT EXCHANGE ADMINISTRATOR, HABILITATION TRAINING SPECIALIST, Skilled Disciplines Monitor patient's vital signs [...] this visit Specialty Medication - General Disciplines: Detention SN to provide safe assessment of patient prior to use of general specialty medication 11/08/2021 Active - 2 problem interventions scheduled/documen mauricio in this visit Learning/Teachin g Needs - IV Therapy Disciplines: Detention Teaching and learning needs for IV therapy [...] medication therapy Completed Skilled Nurse instructed patient in medication administration, purpose, dosages, preparation, scheduling, side effects, food/drug interactions, drug allergies, and potential complications. Medication instructed on: Inflectra Instruct on high risk medications Description: Skilled Nurse will instruct patient on high-risk/high-alert medications, specifically Inflectra. Problem:Medications Goal:Understand and follow medication therapy Completed Skilled Nurse instructed patient on high-risk/high-alert medications, specifically Inflectra. Confirmed Remicade administration orders r/t patients current state of . Instruct on medication side effects Description: Skilled Nurse will instruct patient to monitor for side effects and adverse reactions. Problem:Medications Goal:Understand and follow medication therapy Completed Skilled Nurse instructed patient to monitor for side effects and adverse reactions. Monitor effectiveness of drug therapy Description: Monitor effectiveness of patient's drug therapy. Problem:Medications Goal:Understand and follow medication therapy Completed Monitored effectiveness of patient's drug therapy. Pt reports mild discomfort and occasional constipation that she states she believes is related to gastritis/Crohns diagnosis but may be difficult to differentiate from related abd discomfort. Instruct on drug interactions Description: Perform drug [...] universal precautions and home infection control measures. Assess safety Description: Assess patient safety. Problem:Safety concerns Goal:Demonstrate use of safety precautions Completed Learning Teaching Needs Description: Skilled Nurse [...] is obtained. Problem:Specialty Medication - General Completed IV Access Care/Maintenance Description: Skilled Nurse will start PIV prior to each infusion and apply transparent sterile dressing to site. When infusion is completed and after observation period, SN will discontinue PIV, verify catheter is intact, apply pressure to site until hemostasis is achieved and apply small gauze dressing secured with tape to site prior to discharge. Type of line: PIV Problem:Learning/Tea ronny Needs - IV Therapy Completed Instruct Infection Prevention Description: Skilled Nurse will instruct patient in strategies to prevent infection: frequent/proper hand-washing techniques, [place] precautions, avoid crowds and persons with known infections, staying current with immunizations, s/s of infection, use of antibiotics and encourage adequate diet and fluid intake. Instruct patient on how to recognize signs and symptoms of infection and when to notify HH nurse and/or physician. Problem:Learning/Tea ronny Needs - IV Therapy Scheduled IV Pump Instruction Description: Instruct patient to use call button if IV becomes painful, or swelling/redness occur at IV site, or if pump alarms during infusion. Call button will be kept within reach of patient throughout infusion. Problem:Learning/Tea ronny Needs - IV Therapy Scheduled documented in this encounter Care Teams Legal Records Manager Relationship Specialty Start Date End Date Gucci Manrique MD PCP - General Family Medicine 07/06/20 documented as of this encounter
--- OUTSIDE RECORDS SUMMARY | 2024-08-13 20:13 | XMS_ITS | Encounter Summary ---
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 Indications: prevent clot from blocking an intravenous catheter famotidine (PEPCID) 40 mg tabletIndication s:gastroesophage al reflux disease Take 40 mg by mouth 2 (two) times a day. Indications: gastroesophageal reflux disease ferrous sulfate 325 mg (65 mg of elemental iron) tabletIndication s:Iron Deficiency Anemia Take 1 tablet by mouth daily with breakfast. Indications: anemia from inadequate iron pantoprazole DR (PROTONIX) 20 mg EC tabletIndication s:Mucositis Prophylaxis Take 40 mg by mouth daily. Indications: Mucositis Prophylaxis 2 21/iron fu/folic acid ( COMPLETE ORAL)Indications : Take 4 each by mouth diamond broker before breakfast. Indications: acetaminophen (TYLENOL) 500 mg tabletIndication s:infusion reaction prophylaxis Take 2 tablets (1,000 mg total) by mouth every 4 (four) weeks Please give 1000mg of acetaminophen (Tylenol) 30 minutes prior to Inflectra infusion 3 01/08/20 24 diphenhydrAMINE (BENADRYL) 25 mg capsuleIndicatio ns:infusion reaction prophylaxis Take 25 mg by mouth every 6 (six) hours as needed for itching Please give 25mg of diphenhydramine (Benadryl) by mouth 30 minutes prior to Inflectra infusion. 2 07/03/20 23 inFLIXimab-dyyb 500 mg in sodium chloride 0.9% 0.9% IVPBIndications: Crohn's Disease Infuse 500 mg into a venous catheter every 4 (four) weeks Infuse 500mg Infliximab in 250mL Normal Saline over 1 hour with 1.2 micron filter every 4 weeks. 3 01/08/20 24 loratadine 10 mg capsuleIndicatio ns:infusion reaction prophylaxis Take 10 mg by mouth every 4 (four) weeks Please give 10mg of loratadine (Claritin) 30 minutes prior to Inflectra infusion 3 01/08/20 24 documented as of this encounter Discharge Disposition Disposition Code Departure Means Destination Discharge to home or self care documented in this encounter Plan of Treatment Not on file documented as of this encounter Procedures Procedure Name Priority Date/Time Associated Diagnosis Comments GLUCOSE, RANDOM (OUTREACH) STAT 05/07/2023 12:30 PM CDT EGFR STAT 05/07/2023 12:30 PM CDT DIFFERENTIAL AUTO STAT 05/07/2023 12: 30 PM CDT COMPREHENSIVE METABOLIC PANEL WITHOUT GLUCOSE (OUTREACH) STAT 05/07/2023 12:30 PM CDT CBC WITH AUTO DIFFERENTIAL STAT 05/07/2023 12:30 PM CDT CRP (ACUTE PHASE) STAT 05/07/2023 12: 30 PM CDT documented in this encounter Results * eGFR (05/07/2023 12:30 PM CDT) eGFR >90 90 - 130 mL/min/1. 73 m2 [facility] Comment: Interpretive Data Reference Interval Normal ?>/= 90 mL/min/1.73m2 Mildly decreased* ? 60 - 89 mL/min/1.73m2 Mildly to moderately decreased ?45 - 59 mL/min/1.73m2 Moderately to severely decreased ??30 - 44 mL/min/1.73m2 Severely decreased ?15 - 29 mL/min/1.73m2 Kidney Failure ?< 15 ??mL/min/1.73m2 *Relative to young adult level Estimated glomerular filtration rate is determined by the 2020 CKD-EPI equation recommended by the National Kidney Foundation (A Unifying Approach to GFR Estimation: Recommendations of the NKF-ASK Task Force on Reassessing the Inclusion of Race in Diagnosing Kidney Disease, JASN 202). The CKD-EPI equation should not be used for patients with unstable renal function and has not been validated in children and those over 70. Current interpretive data was last reviewed 2021. Blood 05/07/2023 12:3 0 PM CDT 05/07/2023 3:27 PM CDT us Wendie Platt ENTERPRISE PROJECT MANAGER LAB BLOOD ORDERABLES Final Re sult [facility] Department [place] [address] * (ABNORMAL) Differential, auto (05/07/2023 12:30 PM CDT) Neutrophil abs 0.3(C) 1.7 - 6.5 K/cumm [facility] Comment:Critical result call ed to and read back by FABRICE GRUBBS RN on 05 07 2023 at 1611 to Gustavo Marroquin. Imm gran abs 0.0 0.0 - 0.1 K/cumm [facility] Lymphocyte abs 1.2 0.8 - 3.3 K/cumm [facility] Monocyte abs 0.2 0.2 - 0.8 K/cumm [facility] Eosinophil abs 0.0 0.0 - 0.5 K/cumm [facility] Basophil abs 0.0 0.0 - 0.1 K/cumm [facility] Neutrophil pct 16.2 % [facility] Comment: Interpretive Data Percent cell count reference ranges are not reported, since discordance with absolute values may lead to misinterpretation of CBC data. Current Interpretive Data was last revised on 2017. Imm gran pct 0.0 % [facility] Comment: Interpretive Data Percent cell count reference ranges are not reported, since discordance with absolute values may lead to misinterpretation of CBC data. Current Interpretive Data was last revised on 2017. Lymphocyte pct 69.9 % [facility] Comment: Interpretive Data Percent cell count reference ranges are not reported, since discordance with absolute values may lead to misinterpretation of CBC data. Current Interpretive Data was last revised on 2017. Monocyte pct 12.7 % [facility] Comment: Interpretive Data Percent cell count reference ranges are not reported, since discordance with absolute values may lead to misinterpretation of CBC data. Current Interpretive Data was last revised on 2017. Eosinophil pct 0.6 % [facility] Comment: Interpretive Data Percent cell count reference ranges are not reported, since discordance with absolute values may lead to misinterpretation of CBC data. Current Interpretive Data was last revised on 2017. Basophil pct 0.6 % [facility] Comment: Interpretive Data Percent cell count reference ranges are not reported, since discordance with absolute values may lead to misinterpretation of CBC data. Current Interpretive Data was last revised on 2017. Blood 05/07/2023 12:3 0 PM CDT 05/07/2023 3:16 PM CDT Wendie Platt ENTERPRISE PROJECT MANAGER LAB BLOOD ORDERABLES Final Re sult Performing Organization Address City/[facility]/ZIP Co de Phone Number [facility] Department [place] [address] * CRP (acute phase) (05/07/2023 12:30 PM CDT) Pathologist [facility] CRP 0.9 <=10.0 mg/L [facility] Blood 05/07/2023 12:3 0 PM CDT 05/07/2023 3:16 PM CDT Wendie Platt ENTERPRISE PROJECT MANAGER LAB BLOOD ORDERABLES Final Re sult Performing Organization Address City/[facility] Co de Phone Number [facility] Department [place] [address] * (ABNORMAL) CBC with auto differential (05/07/2023 12:30 PM CDT) Pathologist [facility] WBC 1.7(L) 3.8 - 9.9 K/cumm [facility] Hgb 10.8(L) 11.9 - 15.5 g/dL [facility] Hct 33.9(L) 35.6 - 45.5 % [facility] Plt 226 150 - 400 K/cumm [facility] MPV 10.9 9.1 - 12.3 fL [facility] RBC 4.17 3.90 - 5.20 M/cumm [facility] MCV 81.3 81.3 - 96.4 fL [facility] MCH 25.9(L) 27.1 - 33.3 pg [facility] MCHC 31.9(L) 32.3 - 35.7 g/dL [facility] RDW CV 13.7 11.1 - 14.9 % [facility] RDW SD 40.7 35.7 - 48.1 fL [facility] NRBC abs 0.00 0.00 - 0.01 K/cumm [facility] Blood 05/07/2023 12:3 0 PM CDT 05/07/2023 3:16 PM CDT Wendie Platt NP LAB BLOOD ORDERABLES Edited R esult - Final Performing Organization Address City/[facility] Co de Phone Number [facility] [employer] [address] * Glucose, random (Outreach) (05/07/2023 12:30 PM CDT) Glucose 94 70 - 199 mg/dL [facility] Comment: Interpretive Data Fasting glucose >/= 126 mg/dl is diagnostic for diabetes. ?? Fasting is defined as no caloric intake for at least 8 hours. Fasting glucose between 100 mg/dl to 125 mg/dl is diagnostic of prediabetes. In a patient with classic symptoms of hyperglycemia or hyperglycemic crisis, a random glucose >/= 200 mg/dl is diagnostic for diabetes. In the absence of unequivocal hyperglycemia, results should be confirmed by repeat testing. The classification and Diagnosis of Diabetes Diabetes Care 2021; 46: S19-S40. Current interpretive data was last revised 2022. Blood 05/07/2023 12:3 0 PM CDT 05/07/2023 3:16 PM CDT Wendie Platt NP LAB BLOOD ORDERABLES Final Re sult Performing Organization Address [facility]/ZIP Co de Phone Number [facility] [place] [address] * Comprehensive metabolic panel, without glucose (Outreach) (05/07/2023 12:30 PM CDT) Sodium 141 135 - 145 mmol/L [facility] Potassium, pl 4.0 3.3 - 4.9 mmol/L [facility] Comment:Hemolyzed; Potassium value may be falsely elevated by as much as 0.3-0.5 mmol/L. Suggest redraw and reanalysis. Chloride 106 97 - 110 mmol/L [facility] CO2 27 22 - 32 mmol/L [facility] Anion gap 8 2 - 15 mmol/L [facility] BUN 9 6 - 25 mg/dL [facility] Creatinine 0.68 0.60 - 1.10 mg/dL [facility] Calcium 8.6 8.5 - 10.3 mg/dL [facility] Protein, pl 7.1 6.5 - 8.5 g/dL [facility] Albumin 4.0 3.5 - 5.0 g/dL [facility] Bilirubin, total <0.2 0.1 - 1.2 mg/dL [facility] Alk phos 59 40 - 130 Units/L [facility] AST 30 10 - 45 Units/L [facility] Comment:Hemolyzed; result ma y be falsely elevated ALT 34 7 - 45 Units/L [facility] Blood 05/07/2023 12:3 0 PM CDT 05/07/2023 3:16 PM CDT us Wendie Platt ENTERPRISE PROJECT MANAGER LAB BLOOD ORDERABLES Final Re sult [facility] Department [place] [address] documented in this encounter Visit Diagnoses Not on filedocumented in this encounter Care Teams Cafe Assistant Relationship Specialty Start Date End Date Gucci Manrique MD PCP - General Family Medicine 07/06/20 documented as of this encounter
--- OUTSIDE RECORDS SUMMARY | 2024-08-13 20:13 | XMS_ITS | Encounter Summary ---
Author Organization [facility] es Address [address] [place] [address] Phone Care Team Providers Care Top Lift Trimmer Name Role Phone Gucci Manrique MD Primary Care Provider [phone] [place]Concetta MD Unavailable [phone] Reason for Visit * Medication Authorization (Routine) - Pending Review Specialty Diagnoses / Procedures Referred By Contac t Referred To Contact Shreya Platt MD [address] [facility] [address] [place] [address] Phone: tel: fax: Referral ID Status Reason Start Date Expiration Date V isits Requested Visits Authorized [id number] Pending Review 10/09/2023 11/07/2024 1 1 Encounter Details Date Type Department Care Team (Latest Contact Info) Description 10/09/2023 9:00 AM AIRPORT DUTY MANAGER Home Care Visit [facility] [address] [address] [address] [place] [address] Jhon Jurado RN SN INFUSION TREATMENT ROOM [...] on file Legal Sex Female 12:12 AM AIRPORT DUTY MANAGER Gender Identity Not on file Sexual Orientation Not on file 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 file Not on file Not on file documented as of this encounter Last Filed Vital Signs Vital Sign Reading Time Taken Comments Blood Pressure 110/63 10/09/2023 12:20 PM AIRPORT DUTY MANAGER Pulse 67 10/09/2023 12:20 PM AIRPORT DUTY MANAGER Temperature 37.1 ??C (98.7 ??F) 10/09/2023 12:[address] Respiratory Rate 16 10/09/2023 12:20 PM AIRPORT DUTY MANAGER Oxygen Saturation 98% 10/09/2023 12:20 PM AIRPORT DUTY MANAGER Inhaled Oxygen Concentration - - Weight - - Height - - Body Mass Index - - documented in this encounter Miscellaneous Notes * Home Health Visit Narrative - Jhon Jurado RN - 10/09/2023 10:17 AM CST Tolerates inflectra and iron sucrose infusions well and without adverse reactions or effects. All vital signs fall within acceptable parameters throughout the infusions. PIV removed after the infusions. Pennie verbalizes good understanding of the plan of care moving forward. Pennie reports thatrickey has been symptom-free in the most recent interval. However, she endorses fatigue of late and ishopeful that iron infusions will be helpful. ORT DUTY MANAGER * Home Health Plan for Next Visit - Jhon Jurado RN - 10/09/2023 10:14 AM CST Reason for today's visit -- inflectra and iron sucrose infusions Discuss plan of care with the patient Discharge planning - ongoing Plan for next visit in 8 weeks for same ORT DUTY MANAGER documented in this encounter Plan of Treatment Not on file documented as of this encounter Visit Diagnoses Not on filedocumented in this encounter Administered Medications Active Administered Medications - up to 3 most recent administrations Medication Order MAR Action Action Date Dose Rate Site 0.9 % sodium chloride ([facility] sodium chloride 0.9%) injection 10 mL, intravenous, As needed, line care, Starting on Sun10/09/23 at 1009, Indications: Maintain Patency of Indwelling Vascular CatheterIndications:Maintain Patency of Indwelling Vascular Catheter Given 10/09/2023 10:09 AM AIRPORT DUTY MANAGER 10 mL iron sucrose complex (VENOFER IV) 300 mg, intravenous, Every 7 days, First dose on Sun10/09/23 at 1200, Infuse 300 mg of Iron Sucrose in 250 ml Normal Saline over 90 minutes at 167 mL/hr. Given 10/09/2023 11:11 AM AIRPORT DUTY MANAGER 300 mg Inactive Administered Medications - up to 3 most recent administrations Medication Order MAR Action Action Date Dose Rate Site acetaminophen (TYLENOL) 500 mg tablet 1,000 mg, oral, Every 4 weeks, First dose on Sun10/09/23 at 1130, Please give 1000mg of acetaminophen (Tylenol) 30 minutes prior to Inflectra infusion, Indications: infusion reaction prophylaxisIndications:infusion reaction prophylaxis Given 10/09/2023 10:09 AM AIRPORT DUTY MANAGER 2 tablets inFLIXimab-dyyb 500 mg in sodium chloride 0.9% 0.9% IVPB 500 mg, intravenous, Every 4 weeks, First dose on Sun10/09/23 at 1130, Infuse 500mg Infliximab in 250mL Normal Saline over 2 hours with 1.2 micron filter every 4 weeks., Indications: Crohn's DiseaseIndications:Crohn's Disease Given 10/09/2023 10:09 AM AIRPORT DUTY MANAGER 500 mg loratadine 10 mg capsule 10 mg, oral, Every 4 weeks, First dose on Sun10/09/23 at 1130, Please give 10mg of loratadine (Claritin) 30 minutes prior to Inflectra infusion, Indications: infusion reaction prophylaxisIndications:infusion reaction prophylaxis Given 10/09/2023 10:09 AM AIRPORT DUTY MANAGER 10 mg documented in this encounter [...] home health visit Disciplines: SN, PT, OT, MIXER RUNNER, NCA CERTIFIED CONCIERGE, Skilled Disciplines Monitor patient's vital signs every [...] Problem:Medications Goal:Understand and follow medication therapy Completed Discussed inflectra and iron infusions. Instruct medications Description: Skilled Nurse will instruct [...] Goal:Demonstrate use of safety precautions Completed Pt seen in treatment room. Unable to assess for any safety risks. Per pt no concerns. Pre Medication Assessment Description: Skilled Nurse to complete infusion checklist. Skilled Nurse to monitor vital signs. If patients has a temperature greater than 100 degrees F (37.8 C), notify the pharmacist/physician. Skilled Nurse to obtain IV access for infusion. Problem:Specialty Medication - General Completed Meets criteria for inflectra and iron infusions. Learning Teaching Needs Description: Skilled Nurse to monitor vital signs throughout the infusion and upon completion of the infusion. Skilled Nurse to assess patient following infusion. If stable, patient may be discharged home. Problem:Specialty Medication - General Scheduled Instruct Infection Prevention Description: Skilled Nurse will instruct patient in strategies to prevent infection: frequent/proper hand-washing techniques, [place] precautions, avoid crowds and persons with known infections, staying current with immunizations, s/s of infection, use of antibiotics and encourage adequate diet and fluid intake. Instruct patient on how to recognize signs and symptoms of infection and when to notify HH nurse and/or physician. Problem:Learning/Teach ing Needs - IV Therapy Scheduled IV Access [...] prior to discharge. Type of line: PIV Problem:Learning/Teach ing Needs - IV Therapy Scheduled documented in this encounter Care Teams Top Lift Trimmer Relationship Specialty Start Date End Date Gucci Manrique MD PCP - General Family Medicine 07/06/20 ChikisConcetta schwab MD [address] [facility] [address] DIV MEDICAL ONCOLOGY, [facility] [address] [place] [address] Surgeon Breast Surgery 08/28/23 documented as of this encounter
--- OUTSIDE RECORDS SUMMARY | 2024-08-13 20:13 | XMS_ITS | Encounter Summary ---
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 See last visit for most recent assessment. Reviewed insurance, medications and allergies. Order for recertification and chcf visits included with pharmacy order on 08/24/2022. documented in this encounter Plan of Treatment Not on file documented as of this encounter Visit Diagnoses Not on filedocumented in this encounter Home Health Visit - Care Plan Visit Details Visit Type -SN Non-OASIS Rec ert Discipline -Chcf Problems Problem Description Start Date Status Goals Interve ntions Medications Disciplines: Chcf Management of medications 11/08/2021 Active 1 goal linked to scheduled/documen mauricio intervention 6 goal interventions scheduled/documen mauricio in this visit Monitor patient's vital signs every home health visit Disciplines: SN, PT, OT, ELEMENTARY ART TEACHER, HOOD MAKER, Skilled Disciplines Monitor patient's vital signs every visit. 11/08/2021 Active 1 goal linked to scheduled/documen mauricio intervention 1 goal intervention scheduled/documen mauricio in this visit Safety concerns Disciplines: Skilled Disciplines Alteration in safety 11/08/2021 Active 1 goal linked to scheduled/documen mauricio intervention 1 goal intervention scheduled/documen mauricio in this visit Specialty Medication - General Disciplines: Chcf SN to provide safe assessment of patient prior to use of general specialty medication 11/08/2021 Active - 2 problem interventions scheduled/documen mauricio in this visit Learning/Teachin g Needs - IV Therapy Disciplines: Chcf Teaching and learning needs for IV therapy [...] strategies to prevent infection: frequent/proper hand-washing techniques, [place] precautions, avoid crowds and persons with known [...] Scheduled documented in this encounter Care Teams Product Delivery Specialist Relationship Specialty Start Date End Date Gucci Manrique MD PCP - General Family Medicine 07/06/20 documented as of this encounter
--- OUTSIDE RECORDS SUMMARY | 2024-08-13 20:13 | XMS_ITS | Encounter Summary ---
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 Indications: acetaminophen (TYLENOL) 500 mg [...] Date/Time Associated Diagnosis Comments GLUCOSE, RANDOM (OUTREACH) Routine 06/04/2023 9:30 AM CDT EGFR Routine 06/04/2023 9:30 AM CDT DIFFERENTIAL AUTO Routine 06/04/2023 9:3 0 AM CDT COMPREHENSIVE METABOLIC PANEL WITHOUT GLUCOSE (OUTREACH) Routine 06/04/2023 9:30 AM CDT CBC WITH AUTO DIFFERENTIAL Routine 06/04/2023 9:30 AM CDT CRP (ACUTE PHASE) Routine 06/04/2023 9:3 0 AM CDT documented in this encounter Results * eGFR (06/04/2023 9:30 AM CDT) eGFR >90 90 - 130 mL/min/1. [...] interpretive data was last reviewed 2021. Blood 06/04/2023 9:30 AM CDT 06/04/2023 12:02 PM CDT us Shreya Platt MD LAB BLOOD ORDERABLES Esther humphrey Result [facility] [place] [address] * (ABNORMAL) Differential, auto (06/04/2023 9:30 AM CDT) Neutrophil abs 1.5(L) 1.7 - 6.5 K/cumm [facility] Imm gran abs 0.0 0.0 - 0.1 K/cumm [facility] Lymphocyte abs 2.8 0.8 - 3.3 K/cumm [facility] Monocyte abs 0.3 0.2 - 0.8 K/cumm [facility] Eosinophil abs 0.1 0.0 - 0.5 K/cumm [facility] Basophil abs 0.0 0.0 - 0.1 K/cumm [facility] Neutrophil pct 32.3 % [facility] Comment: Interpretive Data Percent cell count reference ranges are not reported, since discordance with absolute values may lead to misinterpretation of CBC data. Current Interpretive Data was last revised on 2017. Imm gran pct 0.2 % [facility] Comment: Interpretive Data Percent cell count reference ranges are not reported, since discordance with absolute values may lead to misinterpretation of CBC data. Current Interpretive Data was last revised on 2017. Lymphocyte pct 58.9 % [facility] Comment: Interpretive Data Percent cell count reference ranges are not reported, since discordance with absolute values may lead to misinterpretation of CBC data. Current Interpretive Data was last revised on 2017. Monocyte pct 6.1 % [facility] Comment: Interpretive Data Percent cell count reference ranges are not reported, since discordance with absolute values may lead to misinterpretation of CBC data. Current Interpretive Data was last revised on 2017. Eosinophil pct 1.9 % [facility] Comment: Interpretive Data Percent cell count reference ranges are not reported, since discordance with absolute values may lead to misinterpretation of CBC data. Current Interpretive Data was last revised on 2017. Basophil pct 0.6 % [facility] Comment: Interpretive Data Percent cell count reference ranges are not reported, since discordance with absolute values may lead to misinterpretation of CBC data. Current Interpretive Data was last revised on 2017. Blood 06/04/2023 9:30 AM CDT 06/04/2023 11:53 AM CDT Shreya Platt MD LAB BLOOD ORDERABLES Esther l Result Performing Organization Address City/[facility]/ZIP Co de Phone Number [facility] [place] [address] * CRP (acute phase) (06/04/2023 9:30 AM CDT) Pathologist [facility] CRP 4.5 <=10.0 mg/L [facility] Blood 06/04/2023 9:30 AM CDT 06/04/2023 11:53 AM CDT Shreya Platt MD LAB BLOOD ORDERABLES Esther l Result Performing Organization Address [facility] de Phone Number [facility] [place] [address] * (ABNORMAL) CBC with auto differential (06/04/2023 9:30 AM CDT) Pathologist [facility] WBC 4.7 3.8 - 9.9 K/cumm [facility] Hgb 10.7(L) 11.9 - 15.5 g/dL [facility] Hct 34.6(L) 35.6 - 45.5 % [facility] Plt 253 150 - 400 K/cumm [facility] MPV 11.3 9.1 - 12.3 fL [facility] RBC 4.34 3.90 - 5.20 M/cumm [facility] Comment: Interpretive Data A reference range for this assay has not been established for patients with an unknown legal sex. Please refer to the laboratory test catalog for established sex-specific reference intervals. Current interpretive data was last revised on 2023. MCV 79.7(L) 81.3 - 96.4 fL [facility] MCH 24.7(L) 27.1 - 33.3 pg [facility] MCHC 30.9(L) 32.3 - 35.7 g/dL [facility] RDW CV 14.4 11.1 - 14.9 % [facility] RDW SD 41.5 35.7 - 48.1 fL [facility] NRBC abs 0.00 0.00 - 0.01 K/cumm [facility] Blood 06/04/2023 9:30 AM CDT 06/04/2023 11:53 AM CDT us Shreya Platt MD LAB BLOOD ORDERABLES Esther l Result Performing Organization Address [facility]/ZIP Co de Phone Number [facility] [place] [place] [address] * Glucose, random (Outreach) (06/04/2023 9:30 AM CDT) [facility] Signature Glucose 93 70 - 199 mg/dL [facility] Comment: Interpretive Data Fasting glucose >/= 126 [...] classification and Diagnosis of Diabetes Diabetes Care 202; 46: S19-S40. Current interpretive data was last revised 2022. Blood 06/04/2023 9:30 AM CDT 06/04/2023 11:53 AM CDT us Shreya Platt MD LAB BLOOD ORDERABLES Esther l Result Performing Organization Address [facility] Co de Phone Number [facility] [place] [address] * Comprehensive metabolic panel, without glucose (Outreach) (06/04/2023 9:30 AM CDT) Sodium 142 135 - 145 mmol/L [facility] Potassium, pl 4.0 3.3 - 4.9 mmol/L [facility] Chloride 107 97 - 110 mmol/L [facility] CO2 28 22 - 32 mmol/L [facility] Anion gap 7 2 - 15 mmol/L [facility] BUN 12 6 - 25 mg/dL [facility] Creatinine 0.73 0.60 - 1.10 mg/dL [facility] Calcium 9.1 8.5 - 10.3 mg/dL [facility] Protein, pl 7.5 6.5 - 8.5 g/dL [facility] Albumin 4.2 3.5 - 5.0 g/dL [facility] Bilirubin, total 0.4 0.1 - 1.2 mg/dL [facility] Alk phos 69 40 - 130 Units/L [facility] AST 20 10 - 45 Units/L [facility] ALT 22 7 - 45 Units/L [facility] Blood 06/04/2023 9:30 AM CDT 06/04/2023 11:53 AM CDT us Shreya Platt MD LAB BLOOD ORDERABLES Esther humphrey Result [facility] [place] [address] documented in this encounter Visit Diagnoses Not on filedocumented in this encounter Care Teams Mission Worker Relationship Specialty Start Date End Date Gucci Manrique MD PCP - General Family Medicine 07/06/20 documented as of this encounter
--- OUTSIDE RECORDS SUMMARY | 2024-08-13 20:14 | XMS_ITS | Encounter Summary ---
Author Organization [facility] Home Care Servic es Address [address] [place] [address] Phone Care Team Providers Care Rubber Mill Operator Name Role Phone Gucci Manrique MD Primary Care Provider + [phone] Reason for Visit * Reason Comments Crohn's Disease * Medication Authorization (Routine) - Closed Specialty Diagnoses / Procedures Referred By Carolina song Referred To Contact Shreya Platt MD [address] [facility] [address] [place] [address] Phone: tel: fax: Referral ID Status Reason Start Date Expiration Date Visits Re quested Visits Authorized [id number] Closed 04/22/2022 05/22/2023 1 1 Encounter Details Date Type Department Care Team (Latest Contact Info) Description 04/21/2022 10:00 AM CDT Home Care Visit [facility] [address] [address] [address] [place] [address] Bipin Leiva RN SN INFUSION TREATMENT ROOM Social History Tobacco Use Types Packs/Day Years Used Date Smoking Tobacco: Never Smokeless Tobacco: Never Alcohol Use Standard Drinks/Week Comments Yes 0 (1 standard drink = 0.6 oz pur e alcohol) Comments Unknown Sex and Gender Information Value Date Recorded Sex Assigned at Not on file 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 Gender Identity Not on file Sexual Orientation Not on file 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 Not on file Not on file documented as of this encounter Last Filed Vital Signs Vital Sign Reading Time Taken Comments Blood Pressure 122/80 04/21/2022 3:25 PM CDT Pulse 72 04/21/2022 3:25 PM CDT Temperature 36.6 ??C (97.9 ??F) 04/21/2022 3:25 PM CD T Respiratory Rate 16 04/21/2022 3:25 PM CDT Oxygen Saturation 97% 04/21/2022 3:25 PM CDT Inhaled Oxygen Concentration - - Weight - - Height 162.6 cm (5' 4 ) 04/21/2022 10:50 AM CDT Body Mass Index - - documented in this encounter Miscellaneous Notes * Home Health Visit Narrative - Bipin Leiva RN - 04/21/2022 12:00 AM CDT Patient Covid screen performed [...] Dose Rate Site 0.9 % sodium chloride ([facility] sodium chloride 0.9%) injection 10 mL, intravenous, As needed, line care, Starting on Sun04/21/22 at 1323, Indications: Maintain Patency of Indwelling Vascular CatheterIndications:Maint ain Patency of Indwelling Vascular Catheter Given 04/21/2022 12:10 PM CDT 10 mL Left Antecubital Inactive Administered Medications - up to 3 most recent administrations Medication Order MAR Action Action Date Dose Rate Site diphenhydrAMINE (BENADRYL) 25 mg capsule 25 mg, oral, Every 6 hours PRN, itching, Starting on Sun04/21/22 at 1321, Please give 25mg of diphenhydramine (Benadryl) by mouth 30 minutes prior to Inflectra infusion., Indications: infusion reaction prophylaxisIndications:infu nicholas reaction prophylaxis Given 04/21/2022 11:40 AM CDT 25 mg inFLIXimab-dyyb 500 mg in sodium chloride 0.9% 0.9% IVPB 500 mg, intravenous, Every 4 weeks, First dose on 04/22/22 at 1530, Infuse 500mg Infliximab in 250mL Normal Saline over 2 hours with 1.2 micron filter every 4 weeks., Indications: Crohn's DiseaseIndications:Crohn's Disease Given 04/21/2022 12:10 PM CDT 500 mg Left Antecubital loratadine 10 mg capsule 10 mg, oral, Every 4 weeks, First dose on 04/22/22 at 1530, Please give 10mg of loratadine (Claritin) 30 minutes prior to Inflectra infusion, Indications: infusion reaction prophylaxisIndications:infu nicholas reaction prophylaxis Given 04/21/2022 11:40 AM CDT 10 mg documented in this [...] home health visit Disciplines: SN, PT, OT, NURSING PROGRAM DIRECTOR, STREAMING MEDIA SPECIALIST, Skilled Disciplines Monitor patient's vital signs [...] Status Variance Visit Notes Instruct medications Description: Instruct patient in medication administration, purpose, [...] interactions. Instruct on high risk medications Description: Instruct patient on high-risk/high-alert medications, specifically Inflectra. Problem:Medications Goal:Understand and follow medication therapy Completed Taught high-risk/high-alert medications (specifically Inflectra ) with Patient. Patient verbalized understanding. Instruct on medication delivery system Description: Instruct patient on medication delivery system and to keep up to date medication list. Problem:Medications Goal:Understand and follow medication therapy Completed Instructed patient on medication delivery system and to keep up to date medication list. Patient verbalized understanding. Instruct on medication side effects Description: Instruct patient to monitor for side effects and adverse reactions. Problem:Medications Goal:Understand and follow medication therapy Completed Instructed patient to monitor for side effects and adverse reactions. Patient verbalized understanding. Monitor effectiveness of drug therapy Description: Monitor effectiveness of patient's drug therapy. Problem:Medications Goal:Understand and follow medication therapy Completed Patient reports still experiencing nausea and no change in bilateral lower quadrant pain. She reports decreased frequency of BMs. Denies melena or hematochezia. Monitor Vital Signs Description: Monitor blood pressure, [...] less than 101.5) Aspects of Care Description: Instruct patient on universal precautions and home infection control measures. Problem:Infection Prevention Goal:Verbalize signs of infection Completed Instructed patient on universal precautions and home infection [...] access was obtained. Instruct Infection Prevention Description: Instruct patient in strategies to prevent infection: frequent/proper hand-washing techniques, Man precautions, avoid crowds and persons with known infections, staying current with immunizations, s/s of infection, use of antibiotics and encourage adequate diet and fluid intake. Instruct patient on how to recognize signs and symptoms of infection and when to notify HH nurse and/or physician. Problem:Learning/Teac adi Needs - IV Therapy Completed Patient instructed on frequent/proper hand-washing techniques, Man precautions, avoid crowds and persons with known [...] site. documented in this encounter Care Teams Rubber Mill Operator Relationship Specialty Start Date End Date Gucci Manrique MD PCP - General Family Medicine 07/06/20 documented as of this encounter
--- OUTSIDE RECORDS SUMMARY | 2024-08-13 20:14 | XMS_ITS | Encounter Summary ---
Author Organization [facility] Home Care [facility] es Address [address] [place] [address] Phone Care Team Providers Care Glazing Department Supervisor Name Role Phone Gucci Manrique MD Primary Care Provider + [phone] Reason for Visit * Reason Comments Crohn's Disease * Medication Authorization (Routine) - Closed Specialty Diagnoses / Procedures Referred By Carolina song Referred To Contact Shreya Platt MD [address] [facility] [address] [place] [address] Phone: tel: fax: Referral ID Status Reason Start Date Expiration Date Visits Re quested Visits Authorized [id number] Closed 11/26/2021 12/26/2022 1 1 Encounter Details Date Type Department Care Team (Latest Contact Info) Description 11/24/2021 10:00 AM CDT Home Care Visit [facility] [address] [address] [address] [place] [address] Bipin Leiva RN SN INFUSION TREATMENT ROOM Social History Tobacco Use Types Packs/Day Years Used Date Smoking Tobacco: Never Smokeless Tobacco: Never Alcohol Use Standard Drinks/Week Comments Yes 0 (1 standard drink = 0.6 oz pur e alcohol) Comments Unknown Sex and Gender Information Value Date Recorded Sex Assigned at Not on file Legal Sex Female 12:12 AM STOCKROOM ATTENDANT Gender Identity Not on file Sexual Orientation Not on file 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 Not on file Not on file documented as of this encounter Last Filed Vital Signs Vital Sign Reading Time Taken Comments Blood Pressure 106/68 11/24/2021 1:40 PM CDT Pulse 78 11/24/2021 1:40 PM CDT Temperature 36.8 ??C (98.3 ??F) 11/24/2021 1:40 PM CD T Respiratory Rate 16 11/24/2021 1:40 PM CDT Oxygen Saturation 96% 11/24/2021 1:40 PM CDT Inhaled Oxygen Concentration - - Weight - - Height 162.6 cm (5' 4 ) 11/24/2021 10:15 AM CDT Body Mass Index - - documented in this encounter Plan of Treatment Not on file documented as of this encounter Visit Diagnoses Not on filedocumented in this encounter Administered Medications Active Administered Medications - up to 3 most recent administrations Medication Order MAR Action Action Date Dose Rate Site 0.9 % sodium chloride ([facility] sodium chloride 0.9%) injection 10 mL, intravenous, As needed, line care, Starting on 11/26/21 at 1308, Indications: Maintain Patency of Indwelling Vascular CatheterIndications:Maint ain Patency of Indwelling Vascular Catheter Given 11/23/2021 11:07 AM CDT 10 mL Left Antecubital Inactive Administered Medications - up to 3 most recent administrations Medication Order MAR Action Action Date Dose Rate Site acetaminophen (TYLENOL) 500 mg tablet 500 mg, oral, Every 8 weeks, First dose on 11/26/21 at 1400, Please give 500mg of acetaminophen (Tylenol) 30 minutes prior to Inflectra infusion, Indications: infusion reaction prophylaxisIndications:infu nicholas reaction prophylaxis Given 11/24/2021 10:30 AM CDT 500 mg diphenhydrAMINE (BENADRYL) 25 mg capsule 25 mg, oral, Every 8 weeks, First dose on 11/26/21 at 1400, Please give 25mg of diphenhydramine (Benadryl) 30 minutes prior to Inflectra infusion, Indications: infusion reaction prophylaxisIndications:infu nicholas reaction prophylaxis Given 11/24/2021 10:30 AM CDT 25 mg inFLIXimab-dyyb 500 mg in sodium chloride 0.9% 0.9% IVPB 500 mg, intravenous, Every 8 weeks, First dose on 11/26/21 at 1400, Infuse 500mg Infliximab in 250mL Normal Saline over 2 hours with 1.2 micron filter on week 0, 2, 6, and then every 8 weeks., Indications: Crohn's DiseaseIndications:Crohn's Disease Given 11/23/2021 11:07 AM CDT 500 mg Left Antecubital documented in this encounter Home Health Visit - Care Plan Visit Details Visit Type -SN Infusion Gail tment Room Discipline -Fpc Problems Problem Description Start Date Status Goals Interve ntions Medications Disciplines: Fpc Management of medications 11/08/2021 Active 1 goal linked to scheduled/documen mauricio intervention 6 goal interventions scheduled/documen mauricio in this visit Monitor patient's vital signs every home health visit Disciplines: SN, PT, OT, DIAGNOSTICS TECH, RAISED PRINTER, Skilled Disciplines Monitor patient's vital signs every [...] this visit Specialty Medication - General Disciplines: Fpc SN to provide safe assessment of patient prior to use of general specialty medication 11/08/2021 Active - 2 problem interventions scheduled/documen mauricio in this visit Learning/Teachin g Needs - IV Therapy Disciplines: Fpc Teaching and learning needs for IV therapy [...] therapy Completed Performed drug interaction screening and instruct patient on severe drug interactions. Patient verbalized [...] follow medication therapy Completed Patient reports ongoing episodes of diarrhea with blood 3x daily and abdominal tenderness in the RLQ and LLQ. She reports three days of decreased abdominal pain for three days following first Inflectra infusion. Monitor Vital Signs Description: Monitor blood pressure, [...] strategies to prevent infection: frequent/proper hand-washing techniques, [place] precautions, avoid crowds and persons with known infections, staying current with immunizations, s/s of infection, use of antibiotics and encourage adequate diet and fluid intake. Instruct patient on how to recognize signs and symptoms of infection and when to notify HH nurse and/or physician. Problem:Learning/Teac adi Needs - IV Therapy Completed Patient instructed on frequent/proper hand-washing techniques, [place] precautions, avoid crowds and persons with known infections, staying current with immunizations, s/s of infection, use of antibiotics and encourage adequate diet and fluid intake. Patient verbalizes understanding of treatment regimen and the importance of adherence. IV Pump Instruction Description: Instruct patient to [...] tape to site. documented in this encounter Home Health Visit - Actions and Narratives Actions Patient Covid screen perform ed prior to arrival. Assessed patient upon arrival [...] EMS if complications occur. Patient verbalizes understanding. documented in this encounter Care Teams Glazing Department Supervisor Relationship Specialty Start Date End Date Gucci Manrique MD PCP - General Family Medicine 07/06/20 documented as of this encounter
--- OUTSIDE RECORDS SUMMARY | 2024-08-13 20:14 | XMS_ITS | Encounter Summary ---
Author Organization [facility] Home Care Servic es Address [address] [place] [address] Phone Care Team Providers Care Machinist Job Setter Name Role Phone Gucci Manrique MD Primary Care Provider [phone] Encounter Details Date Type Department Care Team (Late st Contact Info) Description 02/17/2022 Orders Only [facility] [address] [place] [id number] Daniel Celaya [facility] Social History Tobacco Use Types Packs/Day Years Used Date Smoking Tobacco: Never Smokeless Tobacco: Never Alcohol Use Standard Drinks/Week Comments Yes 0 (1 standard drink = 0.6 oz pur e alcohol) Comments Unknown Sex and Gender Information Value Date Recorded Sex Assigned at Not on file Legal Sex Female 12:12 AM FISHERIES TECHNICIAN Gender Identity Not on file Sexual Orientation Not on file 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 Current weight as of 07/09/20: 106.6kg. Premedicate patient 30 minutes before infusion with: 1000mg of Acetaminophen by mouth as needed 25mg of Diphenhydramine by as needed (IV not tolerated) 10mg of Loratadine by mouth as needed [...] weeks for a total of 13 doses. documented in this encounter Plan of Treatment Not on file documented as of this encounter Visit Diagnoses Not on filedocumented in this encounter Care Teams Machinist Job Setter Relationship Specialty Start Date End Date Gucci Manrique MD PCP - General Family Medicine 07/06/20 documented as of this encounter
--- OUTSIDE RECORDS SUMMARY | 2024-08-13 20:14 | XMS_ITS | Encounter Summary ---
Author Organization [facility] Home Care Servic es Address [address] [place] [address] Phone Care Team Providers Care Heat Seal Operator Name Role Phone Gucci Manrique MD Primary Care Provider [phone] Encounter Details Date Type Department Care Team (Late st Contact Info) Description 11/08/2021 Home Care Visit [facility] [address] [address] [address] [place] [address] Bipin Leiva, AMADOU SBAR-START OF CARE/RESUMPTION Social History Tobacco Use Types Packs/Day Years Used Date Smoking Tobacco: Never Smokeless Tobacco: Never Alcohol Use Standard Drinks/Week Comments Yes 0 (1 standard drink = 0.6 oz pur e alcohol) Comments Unknown Sex and Gender Information Value Date Recorded Sex Assigned at Not on file Legal Sex Female 12:12 AM HOTEL ASSISTANT GENERAL MANAGER Gender Identity Not on file Sexual Orientation Not on file Occupation Industry Job Start Date Job End Date [employer] Not on file Not on file Not on file documented as of this encounter Plan of Treatment Not on file documented as of this encounter Visit Diagnoses Not on filedocumented in this encounter Care Teams Heat Seal Operator Relationship Specialty Start Date End Date Gucci Manrique MD PCP - General Family Medicine 07/06/20 documented as of this encounter
--- OUTSIDE RECORDS SUMMARY | 2024-08-13 20:14 | XMS_ITS | Encounter Summary ---
Author Organization [facility] Home Care Servic es Address [address] [place] [address] Phone Care Team Providers Care Field Crop Ii Farmworker Name Role Phone Gucci Manrique MD Primary Care Provider + [phone] Reason for Visit * Reason Comments Crohn's Disease * Medication Authorization (Routine) - Closed Specialty Diagnoses / Procedures Referred By Carolina song Referred To Contact Shreya Platt MD [address] [facility] [address] [place] [address] Phone: tel: fax: Referral ID Status Reason Start Date Expiration Date Visits Re quested Visits Authorized [id number] Closed 12/22/2021 01/21/2023 1 1 Encounter Details Date Type Department Care Team (Latest Contact Info) Description 12/21/2021 9:00 AM CDT Home Care Visit [facility] [address] [address] [address] [place] [address] Bipin Leiva RN SN INFUSION TREATMENT ROOM Social History Tobacco Use Types Packs/Day Years Used Date Smoking Tobacco: Never Smokeless Tobacco: Never Alcohol Use Standard Drinks/Week Comments Yes 0 (1 standard drink = 0.6 oz pur e alcohol) Comments Unknown Sex and Gender Information Value Date Recorded Sex Assigned at Not on file Legal Sex Female 12:12 AM DYNAMITE RECLAIMER Gender Identity Not on file Sexual Orientation Not on file 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 Not on file Not on file documented as of this encounter Last Filed Vital Signs Vital Sign Reading Time Taken Comments Blood Pressure 116/64 12/21/2021 12:45 PM CDT Pulse 84 12/21/2021 12:45 PM CDT Temperature 36.7 ??C (98.1 ??F) 12/21/2021 12:45 PM C DT Respiratory Rate 16 12/21/2021 12:45 PM CDT Oxygen Saturation 98% 12/21/2021 12:45 PM CDT Inhaled Oxygen Concentration - - Weight - - Height 162.6 cm (5' 4 ) 12/21/2021 9:10 AM CDT Body Mass Index - - documented in this encounter Plan of Treatment Not on file documented as of this encounter Visit Diagnoses Not on filedocumented in this encounter Administered Medications Active Administered Medications - up to 3 most recent administrations Medication Order MAR Action Action Date Dose Rate Site 0.9 % sodium chloride ([facility] sodium chloride 0.9%) injection 10 mL, intravenous, As needed, line care, Starting on Sun12/22/21 at 1338, Indications: Maintain Patency of Indwelling Vascular CatheterIndications:Maint ain Patency of Indwelling Vascular Catheter Given 12/21/2021 10:15 AM CDT 10 mL Left Antecubital Inactive Administered Medications - up to 3 most recent administrations Medication Order MAR Action Action Date Dose Rate Site acetaminophen (TYLENOL) 500 mg tablet 500 mg, oral, Every 8 weeks, First dose on Sun12/22/21 at 1445, Please give 500mg of acetaminophen (Tylenol) 30 minutes prior to Inflectra infusion, Indications: infusion reaction prophylaxisIndications:infu nicholas reaction prophylaxis Given 12/21/2021 9:40 AM CDT 500 mg diphenhydrAMINE (BENADRYL) 25 mg capsule 25 mg, oral, Every 8 weeks, First dose on Sun12/22/21 at 1445, Please give 25mg of diphenhydramine (Benadryl) 30 minutes prior to Inflectra infusion, Indications: infusion reaction prophylaxisIndications:infu nicholas reaction prophylaxis Given 12/21/2021 9:40 AM CDT 25 mg inFLIXimab-dyyb 500 mg in sodium chloride 0.9% 0.9% IVPB 500 mg, intravenous, Every 8 weeks, First dose on Sun12/22/21 at 1445, Infuse 500mg Infliximab in 250mL Normal Saline over 2 hours with 1.2 micron filter on week 0, 2, 6, and then every 8 weeks., Indications: Crohn's DiseaseIndications:Crohn's Disease Given 12/21/2021 10:15 AM CDT 500 mg Left Antecubital documented in this encounter Home Health Visit - Care Plan Visit Details Visit Type -SN Infusion Gail tment Room Discipline -Assisted Problems Problem Description Start Date Status Goals Interve ntions Medications Disciplines: Assisted Management of medications 11/08/2021 Active 1 goal linked to scheduled/documen mauricio intervention 6 goal interventions scheduled/documen mauricio in this visit Monitor patient's vital signs every home health visit Disciplines: SN, PT, OT, LOCKSTITCH WAISTBAND SETTER, PAINTER STRUCTURAL STEEL, Skilled Disciplines Monitor patient's vital signs every [...] visit Specialty Medication - General Disciplines: Assisted SN to provide safe assessment of patient [...] follow medication therapy Completed Patient reports no improvement of Crohn's symptoms since begining Inflectra infusions. Monitor Vital Signs Description: Monitor blood pressure, [...] strategies to prevent infection: frequent/proper hand-washing techniques, [place] precautions, avoid crowds and persons with known infections, staying current with immunizations, s/s of infection, use of antibiotics and encourage adequate diet and fluid intake. Instruct patient on how to recognize signs and symptoms of infection and when to notify HH nurse and/or physician. Problem:Learning/Teac adi Needs - IV Therapy Completed Patient instructed on frequent/proper hand-washing techniques, [place] precautions, avoid crowds and persons with known [...] site until hemostasis is achieved and applied adhesive bandage or small gauze dressing secured [...] understanding. documented in this encounter Care Teams Field Crop Ii Farmworker Relationship Specialty Start Date End Date Gucci Manrique MD PCP - General Family Medicine 07/06/20 documented as of this encounter
--- OUTSIDE RECORDS SUMMARY | 2024-08-13 20:14 | XMS_ITS | Encounter Summary ---
Author Organization [facility] Home Care Servic es Address [address] [place] [address] Phone Care Team Providers Care Oxygen Plant Operator Name Role Phone Gucci Manrique MD Primary Care Provider [phone] Encounter Details Date Type Department Care Team (Late st Contact Info) Description 01/20/2022 Orders Only [facility] [address] [place] [id number] Daniel Celaya, [facility] Social History Tobacco Use Types Packs/Day Years Used Date Smoking Tobacco: Never Smokeless Tobacco: Never Alcohol Use Standard Drinks/Week Comments Yes 0 (1 standard drink = 0.6 oz pur e alcohol) Comments Unknown Sex and Gender Information Value Date Recorded Sex Assigned at Not on file Legal Sex Female 12:12 AM GRAY TENDER Gender Identity Not on file Sexual Orientation Not on file 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 Not on file Not on file documented as of this encounter Plan of Treatment Not on file documented as of this encounter Visit Diagnoses Not on filedocumented in this encounter Discontinued Medications Medication Sig Discontinue Reason Start Date End Da te diphenhydrAMINE (BENADRYL) 25 mg capsuleIndications:i nfusion reaction prophylaxis Take 25 mg by mouth every 8 (eight) weeks Please give 25mg of diphenhydramine (Benadryl) 30 minutes prior to Inflectra infusion Alternate therapy 06/14/2021 01/20/2022 documented as of this encounter Historical Medications * This list may reflect changes made after this encounter. loratadine 10 mg capsuleIndicatio ns:infusion reaction prophylaxis Take 10 mg by mouth every 4 (four) weeks Please give 10mg of loratadine (Claritin) 30 minutes prior to Inflectra infusion 3 01/08/20 24 diphenhydrAMINE (diphenhydrAMINE HCL) 50 mg/mL injectionIndicat ions:infusion reaction prophylaxis Infuse 25 mg into a venous catheter every 4 (four) weeks Please give 25mg (0.5mL) of diphenhydramine (Benadryl) via IV push 30 minutes prior to Inflectra infusion. 2 02/18/20 22 added in this encounter Care Teams Oxygen Plant Operator Relationship Specialty Start Date End Date Gucci Manrique MD PCP - General Family Medicine 07/06/20 documented as of this encounter
--- OUTSIDE RECORDS SUMMARY | 2024-08-13 20:14 | XMS_ITS | Encounter Summary ---
Author Organization [facility] Home Care Servic es Address [address] [place] [address] Phone Care Team Providers Care Silk Winding Machine Operator Name Role Phone Gucci Manrique MD Primary Care Provider + [phone] Reason for Visit * Reason Comments Crohn's Disease * Medication Authorization (Routine) - Closed Specialty Diagnoses / Procedures Referred By Carolina song Referred To Contact Shreya Platt MD [address] [facility] [address] [place] [address] Phone: tel: fax: Referral ID Status Reason Start Date Expiration Date Visits Re quested Visits Authorized [id number] Closed 11/08/2021 12/08/2022 1 1 Encounter Details Date Type Department Care Team (Latest Contact Info) Description 11/08/2021 1:00 PM CDT Home Care Visit [facility] [address] [address] [address] [place] [address] Bipin Leiva RN SN NON OASIS START OF CARE Social History Tobacco Use Types Packs/Day Years Used Date Smoking Tobacco: Never Smokeless Tobacco: Never Alcohol Use Standard Drinks/Week Comments Yes 0 (1 standard drink = 0.6 oz pur e alcohol) Comments Unknown Sex and Gender Information Value Date Recorded Sex Assigned at Not on file Legal Sex Female 12:12 AM DIAL PAINTER Gender Identity Not on file Sexual Orientation Not on file 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 Not on file Not on file documented as of this encounter Last Filed Vital Signs Vital Sign Reading Time Taken Comments Blood Pressure 108/66 11/08/2021 5:00 PM CDT Pulse 90 11/08/2021 5:00 PM CDT Temperature 37 ??C (98.6 ??F) 11/08/2021 5:00 PM CDT Respiratory Rate 16 11/08/2021 5:00 PM CDT Oxygen Saturation 99% 11/08/2021 5:00 PM CDT Inhaled Oxygen Concentration - - Weight - - Height 162.6 cm (5' 4 ) 11/08/2021 1:20 PM CDT Body Mass Index - - documented in this encounter Plan of Treatment Not on file documented as of this encounter Visit Diagnoses Not on filedocumented in this encounter Administered Medications Active Administered Medications - up to 3 most recent administrations Medication Order MAR Action Action Date Dose Rate Site 0.9 % sodium chloride ([facility] sodium chloride 0.9%) injection 10 mL, intravenous, As needed, line care, Starting on Sun11/08/21 at 1554, Indications: Maintain Patency of Indwelling Vascular CatheterIndications:Maint ain Patency of Indwelling Vascular Catheter Given 11/08/2021 2:25 PM CDT 10 mL Left Antecubital Inactive Administered Medications - up to 3 most recent administrations Medication Order MAR Action Action Date Dose Rate Site acetaminophen (TYLENOL) 500 mg tablet 500 mg, oral, Every 8 weeks, First dose on Sun11/08/21 at 1800, Please give 500mg of acetaminophen (Tylenol) 30 minutes prior to Inflectra infusion, Indications: infusion reaction prophylaxisIndications:infu nicholas reaction prophylaxis Given 11/08/2021 1:40 PM CDT 500 mg diphenhydrAMINE (BENADRYL) 25 mg capsule 25 mg, oral, Every 8 weeks, First dose on Sun11/08/21 at 1800, Please give 25mg of diphenhydramine (Benadryl) 30 minutes prior to Inflectra infusion, Indications: infusion reaction prophylaxisIndications:infu nicholas reaction prophylaxis Given 11/08/2021 1:40 PM CDT 25 mg inFLIXimab-dyyb 500 mg in sodium chloride 0.9% 0.9% IVPB 500 mg, intravenous, Every 8 weeks, First dose on Sun11/08/21 at 1800, Infuse 500mg Infliximab in 250mL Normal Saline over 2 hours with 1.2 micron filter on week 0, 2, 6, and then every 8 weeks., Indications: Crohn's DiseaseIndications:Crohn's Disease Given 11/08/2021 2:25 PM CDT 500 mg Left Antecubital documented in this encounter Home Health Visit - Care Plan Visit Details Visit Type -SN Non-OASIS Sta rt of Care Discipline -Nursing Home Problems Problem Description Start Date Status Goals Interve ntions Medications Disciplines: Nursing Home Management of medications 11/08/2021 Active 1 goal linked to scheduled/documen mauricio intervention 6 goal interventions scheduled/documen mauricio in this visit Monitor patient's vital signs every home health visit Disciplines: SN, PT, OT, CURTAIN ROLLER ASSEMBLER, WOODWORKING SHOP LABORER, Skilled Disciplines Monitor patient's vital signs every [...] this visit Specialty Medication - General Disciplines: Nursing Home SN to provide safe assessment of patient prior to use of general specialty medication 11/08/2021 Active - 2 problem interventions scheduled/documen mauricio in this visit Learning/Teachin g Needs - IV Therapy Disciplines: Nursing Home Teaching and learning needs for IV [...] Problem:Medications Goal:Understand and follow medication therapy Completed [place] high-risk/high-alert medications (specifically Inflectra ) with Patient. [...] Skilled Nurse completed infusion checklist. Skilled Nurse monitor vital signs. All VS WNL. Skilled Nurse obtained IV access and notified pharmacist when access was obtained. Instruct Infection Prevention Description: Instruct patient in strategies to prevent infection: frequent/proper hand-washing techniques, [place] precautions, avoid crowds and persons with known infections, staying current with immunizations, s/s of infection, use of antibiotics and encourage adequate diet and fluid intake. Instruct patient on how to recognize signs and symptoms of infection and when to notify HH nurse and/or physician. Problem:Learning/Teac adi Needs - IV Therapy Completed Patient instructed on frequent/proper hand-washing techniques, [place] precautions, avoid crowds and persons with known [...] understanding. documented in this encounter Care Teams Silk Winding Machine Operator Relationship Specialty Start Date End Date Gucci Manrique MD PCP - General Family Medicine 07/06/20 documented as of this encounter
--- OUTSIDE RECORDS SUMMARY | 2024-08-13 20:14 | XMS_ITS | Encounter Summary ---
Author Organization [facility] Home Care Servic es Address [address] [place] [address] Phone Care Team Providers Care Business Strategy Manager Name Role Phone Gucci Manirque MD Primary Care Provider [phone] Encounter Details Date Type Department Care Team (Late st Contact Info) Description 11/11/2021 Home Care Visit [facility] Health [address] [address] [address] [place] [address] Bipin Leiva, AMADOU CASE COMMUNICATION Social History Tobacco Use Types Packs/Day Years Used Date Smoking Tobacco: Never Smokeless Tobacco: Never Alcohol Use Standard Drinks/Week Comments Yes 0 (1 standard drink = 0.6 oz pur e alcohol) Comments Unknown Sex and Gender Information Value Date Recorded Sex Assigned at Not on file Legal Sex Female 12:12 AM URBAN DESIGNER Gender Identity Not on file Sexual Orientation Not on file 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
--- OUTSIDE RECORDS SUMMARY | 2024-08-13 20:14 | XMS_ITS | Encounter Summary ---
Author Organization [facility] Home Care Servic es Address [address] [place] [address] Phone Care Team Providers Care Production Line Manager Name Role Phone Gucci Manrique MD Primary Care Provider [phone] Encounter Details Date Type Department Care Team (Late st Contact Info) Description 11/08/2021 Orders Only [facility] [address] [place] [id number] Daniel Celaya RP Social History Tobacco Use Types Packs/Day Years Used Date Smoking Tobacco: Never Smokeless Tobacco: Never Alcohol Use Standard Drinks/Week Comments Yes 0 (1 standard drink = 0.6 oz pur e alcohol) Comments Unknown Sex and Gender Information Value Date Recorded Sex Assigned at Not on file Legal Sex Female 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 MaintainIV access via PIV line with 10ml normal saline for patency per established protocol. Remove IV access at the end of each infusion. For Initial dose (USE FIRST DOSE PRECAUTIONS): Check vital signs (Temp, HR, RR, BP) prior to infusion, every 15 minutes during the first 60 minutes of the infusion, every 30 minutes for the last 60 minutes of infusion, and at discharge. For Subsuqent doses (if initial dose is without incident): Check vital signs (Temp, HR, RR, BP) prior to infusion, every 30 minutes during infusion, and at discharge. Record patient's weight prior to each infusion. Notify physician for a weight gain/loss greater than 10% ([phone]). Current weight as of 07/09/20: 106.6kg. Premedicate patient 30 minutes before infusion with: 25mg of Diphenhydramine by mouth as needed 500mg of Acetaminophen by mouth as needed Infuse 500mg Infliximab [...] or other infusion related reactions. Treatment Plan: Following instructions above on week 0, 2, & 6. Then, repeat every 8 weeks thereafter for a total of 8 doses. documented in this encounter Plan of Treatment Not on file documented as of this encounter Visit Diagnoses Not on filedocumented in this encounter Historical Medications * This list may reflect changes made after this encounter. acetaminophen (TYLENOL) 500 mg tabletIndication s:infusion reaction prophylaxis Take 1,000 mg by mouth every 4 (four) weeks Please give 1000mg of acetaminophen (Tylenol) 30 minutes prior to Inflectra infusion 1 06/28/20 22 diphenhydrAMINE (BENADRYL) 25 mg capsuleIndicatio ns:infusion reaction prophylaxis Take 25 mg by mouth every 8 (eight) weeks Please give 25mg of diphenhydramine (Benadryl) 30 minutes prior to Inflectra infusion 1 01/21/20 22 inFLIXimab-dyyb 500 mg in sodium chloride 0.9% 0.9% IVPBIndications: Crohn's Disease Infuse 500 mg into a venous catheter every 4 (four) weeks Infuse 500mg Infliximab in 250mL Normal Saline over 1 hour with 1.2 micron filter every 4 weeks. 3 01/08/20 24 added in this encounter Care Teams Production Line Manager Relationship Specialty Start Date End Date Gucci Manrique MD PCP - General Family Medicine 07/06/20 documented as of this encounter
--- OUTSIDE RECORDS SUMMARY | 2024-08-13 20:14 | XMS_ITS | Encounter Summary ---
Author Organization [facility] Home Care Servic es Address [address] [place] [address] Phone Care Team Providers Care Certified Medication Technician Name Role Phone Gucci Manrique MD Primary Care Provider + [phone] Reason for Visit * Reason Comments Crohn's Disease * Medication Authorization (Routine) - Closed Specialty Diagnoses / Procedures Referred By Carolina song Referred To Contact Shreya Platt MD [address] [facility] [address] [place] [address] Phone: tel: fax: Referral ID Status Reason Start Date Expiration Date Visits Re quested Visits Authorized [id number] Closed 06/29/2022 07/29/2023 1 1 Encounter Details Date Type Department Care Team (Latest Contact Info) Description 06/28/2022 10:30 AM CDT Home Care Visit [facility] Health [address] [address] [address] [place] [address] Bipin Leiav RN SN INFUSION TREATMENT ROOM Social History Tobacco Use Types Packs/Day Years Used Date Smoking Tobacco: Never Smokeless Tobacco: Never Alcohol Use Standard Drinks/Week Comments Yes 0 (1 standard drink = 0.6 oz pur e alcohol) Comments Unknown Sex and Gender Information Value Date Recorded Sex Assigned at Not on file 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 Gender Identity Not on file Sexual Orientation Not on file 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 Not on file Not on file documented as of this encounter Last Filed Vital Signs Vital Sign Reading Time Taken Comments Blood Pressure 102/60 06/28/2022 2:45 PM CDT Pulse 68 06/28/2022 2:45 PM CDT Temperature 37 ??C (98.6 ??F) 06/28/2022 2:45 PM CDT Respiratory Rate 16 06/28/2022 2:45 PM CDT Oxygen Saturation 95% 06/28/2022 2:45 PM CDT Inhaled Oxygen Concentration - - Weight - - Height 162.6 cm (5' 4 ) 06/28/2022 11:13 AM CDT Body Mass Index - - documented in this encounter Miscellaneous Notes * Home Health Visit Narrative - Bipin Leiva RN - 06/28/2022 12:00 AM CDT Patient Covid screen performed [...] Dose Rate Site 0.9 % sodium chloride ([facility] sodium chloride 0.9%) injection 10 mL, intravenous, As needed, line care, Starting on Sun06/28/22 at 1223, Indications: Maintain Patency of Indwelling Vascular CatheterIndications:Maintain Patency of Indwelling Vascular Catheter Given 06/28/2022 12:15 PM CDT 10 mL Right Hand Inactive Administered Medications - up to 3 most recent administrations Medication Order MAR Action Action Date Dose Rate Site acetaminophen (TYLENOL) 500 mg tablet 1,000 mg, oral, Every 4 weeks, First dose on [place] 06/29/22 at 0700, Please give 1000mg of acetaminophen (Tylenol) 30 minutes prior to Inflectra infusion, Indications: infusion reaction prophylaxisIndications:infus ion reaction prophylaxis Given 06/28/2022 11:40 AM CDT 1,000 mg inFLIXimab-dyyb 500 mg in sodium chloride 0.9% 0.9% IVPB 500 mg, intravenous, Every 4 weeks, First dose on [place] 06/29/22 at 0700, Infuse 500mg Infliximab in 250mL Normal Saline over 2 hours with 1.2 micron filter every 4 weeks., Indications: Crohn's DiseaseIndications:Crohn's Disease Given 06/28/2022 12:15 PM CDT 500 mg Right Hand loratadine 10 mg capsule 10 mg, oral, Every 4 weeks, First dose on [place] 06/29/22 at 0700, Please give 10mg of loratadine (Claritin) 30 minutes prior to Inflectra infusion, Indications: infusion reaction prophylaxisIndications:infus ion reaction prophylaxis Given 06/28/2022 11:40 AM CDT 10 mg documented in this encounter Home Health Visit - Care Plan Visit Details Visit Type -SN Infusion Gail tment Room Discipline -Nursing Home Problems Problem Description Start Date Status Goals Interve ntions Medications Disciplines: Nursing Home Management of medications 11/08/2021 Active 1 goal linked to scheduled/documen mauricio intervention 6 goal interventions scheduled/documen mauricio in this visit Monitor patient's vital signs every home health visit Disciplines: SN, PT, OT, MOTOR EQUIPMENT LIEUTENANT, RECORDS MANAGEMENT TECHNICIAN, Skilled Disciplines Monitor patient's vital signs [...] interventions scheduled/documen mauricio in this visit Learning/Mira sorensen Needs - IV Therapy Disciplines: Nursing Home Teaching and learning needs for IV therapy 11/08/2021 Active - 4 problem interventions scheduled/docrocion mauricio in this visit Goals Goal Associated [...] follow medication therapy Completed Patient reports ongoing abdominal pain and constipation. Pain level has decrease since decreasing infusion frequency to Q4 weeks. Monitor Vital Signs Description: Monitor blood [...] strategies to prevent infection: frequent/proper hand-washing techniques, [place] precautions, avoid crowds and persons with known infections, staying current with immunizations, s/s of infection, use of antibiotics and encourage adequate diet and fluid intake. Instruct patient on how to recognize signs and symptoms of infection and when to notify HH nurse and/or physician. Problem:Learning/Teac adi Needs - IV Therapy Completed Patient instructed on frequent/proper hand-washing techniques, [place] precautions, avoid crowds and persons with known [...] to site until hemostasis is achieved and appliedsmall gauze dressing secured with tape to site. documented in this encounter Care Teams Certified Medication Technician Relationship Specialty Start Date End Date Gucci Manrique MD PCP - General Family Medicine 07/06/20 documented as of this encounter
--- OUTSIDE RECORDS SUMMARY | 2024-08-13 20:14 | XMS_ITS | Encounter Summary ---
Author Organization [facility] Healthcare Address [address] [place] [address] Care Team Providers Care Stitcher Feeder Name Role Phone Gucci Manrique MD Primary Care Provider + [phone] Encounter Details Date Type Department Care Team (Late st Contact Info) Description 11/09/2021 Orders Only [facility] Operating Room [address] [place] [address] Amie Quiroga, [facility] [address] [facility] [address] [place] [address] Social History Tobacco Use Types Packs/Day Years Used Date Smoking Tobacco: Never Smokeless Tobacco: Never Alcohol Use Standard Drinks/Week Comments Yes 0 (1 standard drink = 0.6 oz pur e alcohol) Comments Unknown Sex and Gender Information Value Date Recorded Sex Assigned at Not on file Legal Sex Female 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 Gender Identity Not on file Sexual Orientation Not on file 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 Not on file Not on file documented as of this encounter Plan of Treatment Not on file documented as of this encounter Visit Diagnoses Not on filedocumented in this encounter Discontinued Medications Medication Sig Discontinue Reason Start Date End Da te diclofenac DR (VOLTAREN) 50 mg EC tablet [The details of the medication are not available because there are pending changes by a home health clinician.] Other 07/09/2020 11/09/2021 documented as of this encounter Care Teams Stitcher Feeder Relationship Specialty Start Date End Date Gucci Manrique MD PCP - General Family Medicine 07/06/20 documented as of this encounter
--- OUTSIDE RECORDS SUMMARY | 2024-08-13 20:14 | XMS_ITS | Encounter Summary ---
Author Organization [facility] Home Care Servic es Address [address] [place] [address] Phone Care Team Providers Care Magnetic Tester Name Role Phone Gucci Manrique MD Primary Care Provider [phone] Encounter Details Date Type Department Care Team (Late st Contact Info) Description 05/02/2022 Plan of Care Documentation [facility] Health [address] [address] [address] [place] [address] Social History Tobacco Use Types Packs/Day Years Used Date Smoking Tobacco: Never Smokeless Tobacco: Never Alcohol Use Standard Drinks/Week Comments Yes 0 (1 standard drink = 0.6 oz pur e alcohol) Comments Unknown Sex and Gender Information Value Date Recorded Sex Assigned at Not on file 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
--- OUTSIDE RECORDS SUMMARY | 2024-08-13 20:14 | XMS_ITS | Encounter Summary ---
Author Organization [facility] es Address [address] [place] [address] Phone Care Team Providers Care Dowel Sander Operator Name Role Phone Gucci Manrique MD Primary Care Provider [phone] Reason for Visit * Reason Comments Crohn's Disease * Medication Authorization (Routine) - Closed Specialty Diagnoses / Procedures Referred By Carolina song Referred To Contact Shreya Platt MD [address] [facility] [address] [place] [address] Phone: tel: fax: Referral ID Status Reason Start Date Expiration Date Visits Re quested Visits Authorized Closed 02/16/2022 03/18/2023 1 1 Encounter Details Date Type Department Care Team (Latest Contact Info) Description 02/16/2022 9:00 AM CDT Home Care Visit [facility] [address] [address] [address] [place] [address] Bipin Leiva RN SN INFUSION TREATMENT ROOM Social History Tobacco Use Types Packs/Day Years Used Date Smoking Tobacco: Never Smokeless Tobacco: Never Alcohol Use Standard Drinks/Week Comments Yes 0 (1 standard drink = 0.6 oz pur e alcohol) Comments Unknown Sex and Gender Information Value Date Recorded Sex Assigned at Not on file Legal Sex Female 12:12 AM 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 EQUIPMENT OPERATOR Gender Identity Not on file Sexual Orientation Not on file 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 Not on file Not on file documented as of this encounter Last Filed Vital Signs Vital Sign Reading Time Taken Comments Blood Pressure 122/74 02/16/2022 12:55 PM CDT Pulse 75 02/16/2022 12:55 PM CDT Temperature 36.7 ??C (98.1 ??F) 02/16/2022 12:55 PM C DT Respiratory Rate 16 02/16/2022 12:55 PM CDT Oxygen Saturation 99% 02/16/2022 12:55 PM CDT Inhaled Oxygen Concentration - - Weight - - Height 162.6 cm (5' 4 ) 02/16/2022 9:20 AM CDT Body Mass Index - - documented in this encounter Miscellaneous Notes * Home Health Visit Narrative - Bipin Leiva RN - 02/16/2022 12:00 AM CDT Patient Covid screen performed [...] Dose Rate Site 0.9 % sodium chloride ([facility] sodium chloride 0.9%) injection 10 mL, intravenous, As needed, line care, Starting on [place] 02/16/22 at 1122, Indications: Maintain Patency of Indwelling Vascular CatheterIndications:Maint ain Patency of Indwelling Vascular Catheter Given 02/16/2022 10:25 AM CDT 10 mL Left Antecubital Inactive Administered Medications - up to 3 most recent administrations Medication Order MAR Action Action Date Dose Rate Site acetaminophen (TYLENOL) 500 mg tablet 1,000 mg, oral, Every 4 weeks, First dose on [place] 02/16/22 at 1815, Please give 1000mg of acetaminophen (Tylenol) 30 minutes prior to Inflectra infusion, Indications: infusion reaction prophylaxisIndications:inf usion reaction prophylaxis Given 02/16/2022 9:35 AM CDT 1,000 mg diphenhydrAMINE (BENADRYL) 25 mg capsule 25 mg, oral, Every 6 hours PRN, itching, Starting on Sun02/17/22 at 1222, Please give 25mg of diphenhydramine (Benadryl) by mouth 30 minutes prior to Inflectra infusion., Indications: infusion reaction prophylaxisIndications:inf usion reaction prophylaxis Given 02/16/2022 9:35 AM CDT 25 mg inFLIXimab-dyyb 500 mg in sodium chloride 0.9% 0.9% IVPB 500 mg, intravenous, Every 4 weeks, First dose on [place] 02/16/22 at 1815, Infuse 500mg Infliximab in 250mL Normal Saline over 2 hours with 1.2 micron filter every 4 weeks., Indications: Crohn's DiseaseIndications:Crohn's Disease Given 02/16/2022 10:25 AM CDT 500 mg Left Antecubital loratadine 10 mg capsule 10 mg, oral, Every 4 weeks, First dose on [place] 02/16/22 at 1815, Please give 10mg of loratadine (Claritin) 30 minutes prior to Inflectra infusion, Indications: infusion reaction prophylaxisIndications:inf usion reaction prophylaxis Given 02/16/2022 9:35 AM CDT 10 mg documented in this encounter Home Health Visit - Care Plan Visit Details Visit Type -SN Infusion Gail tment Room Discipline -Retirement Problems Problem Description Start Date Status Goals Interve ntions Medications Disciplines: Retirement Management of medications 11/08/2021 Active 1 goal linked to scheduled/documen mauricio intervention 6 goal interventions scheduled/documen mauricio in this visit Monitor patient's vital signs every home health visit Disciplines: SN, PT, OT, CLERK OF SUPERIOR COURT, CASINO CAGE MANAGER, Skilled Disciplines Monitor patient's vital signs [...] this visit Specialty Medication - General Disciplines: Retirement SN to provide safe assessment of patient prior to use of general specialty medication 11/08/2021 Active - 2 problem interventions scheduled/documen mauricio in this visit Learning/Teachin g Needs - IV Therapy Disciplines: Retirement Teaching and learning needs for IV therapy [...] on severe drug interactions. Patient verbalized understanding. Notified MD any severe interactions. Instruct on high risk medications [...] side effects and adverse reactions. Patient verbalized understanding.' Monitor effectiveness of drug therapy Description: Monitor effectiveness of patient's drug therapy. Problem:Medications Goal:Understand and follow medication therapy Completed Patient reports no improvement of symptoms since changing infusion frequency to Q4 weeks. Abdominal pain is increased. MD aware. Patient has abdominal CT scheduled. Monitor Vital Signs Description: Monitor blood pressure, [...] strategies to prevent infection: frequent/proper hand-washing techniques, [place] precautions, avoid crowds and persons with known infections, staying current with immunizations, s/s of infection, use of antibiotics and encourage adequate diet and fluid intake. Instruct patient on how to recognize signs and symptoms of infection and when to notify HH nurse and/or physician. Problem:Learning/Teac adi Needs - IV Therapy Completed Patient instructed on frequent/proper hand-washing techniques, [place] precautions, avoid crowds and persons with known [...] site. documented in this encounter Care Teams Dowel Sander Operator Relationship Specialty Start Date End Date Gucci Manrique MD PCP - General Family Medicine 07/06/20 documented as of this encounter
--- OUTSIDE RECORDS SUMMARY | 2024-08-13 20:14 | XMS_ITS | Encounter Summary ---
Author Organization [facility] Address [address] [place] [address] Phone Care Team Providers Care Obstetrics Nurse Practitioner Name Role Phone Gucci Manrique MD Primary Care Provider [phone] Encounter Details Date Type Department Care Team (Latest Contact Info) Description 05/02/2022 Home Care Visit [facility] [address] [address] [address] [place] [address] Bipin Leiva RN SN NON OASIS RECERTIFICATION Social History Tobacco Use Types Packs/Day Years Used Date Smoking Tobacco: Never Smokeless Tobacco: Never Alcohol Use Standard Drinks/Week Comments Yes 0 (1 standard drink = 0.6 oz pur e alcohol) Comments Unknown Sex and Gender Information Value Date Recorded Sex Assigned at Not on file 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 See last visit for most recent assessment. Reviewed insurance, medications and allergies. Order for recertification and longterm visits included with pharmacy order on 02/17/2022. documented in this encounter Plan of Treatment Not on file documented as of this encounter Visit Diagnoses Not on filedocumented in this encounter Home Health Visit - Care Plan Visit Details Visit Type -SN Non-OASIS Rec ert Discipline -Longterm Problems Problem Description Start Date Status Goals Interve ntions Medications Disciplines: Longterm Management of medications 11/08/2021 Active 1 goal linked to scheduled/documen mauricio intervention 6 goal interventions scheduled/documen mauricio in this visit Monitor patient's vital signs every home health visit Disciplines: SN, PT, OT, TERRITORY MANAGER, ENVIRONMENTAL COMMUNICATIONS SPECIALIST, Skilled Disciplines Monitor patient's vital signs every visit. 11/08/2021 Active 1 goal linked to scheduled/documen mauricoi intervention 1 goal intervention scheduled/documen mauricio in this visit Safety concerns Disciplines: Skilled Disciplines Alteration in safety 11/08/2021 Active 1 goal linked to scheduled/documen mauricio intervention 1 goal intervention scheduled/documen mauricio in this visit Specialty Medication - General Disciplines: Longterm SN to provide safe assessment of patient prior to use of general specialty medication 11/08/2021 Active - 2 problem interventions scheduled/documen mauricio in this visit Learning/Teachin g Needs - IV Therapy Disciplines: Longterm Teaching and learning needs for IV therapy [...] strategies to prevent infection: frequent/proper hand-washing techniques, [place] precautions, avoid crowds and persons with known [...] Scheduled documented in this encounter Care Teams Obstetrics Nurse Practitioner Relationship Specialty Start Date End Date Gucci Manrique MD PCP - General Family Medicine 07/06/20 documented as of this encounter
--- OUTSIDE RECORDS SUMMARY | 2024-08-13 20:14 | XMS_ITS | Encounter Summary ---
Author Organization [facility] Home [facility] Address [address] [place] [address] Phone Care Team Providers Care Dural Mechanic Name Role Phone Gucci Manrique MD Primary Care Provider [phone] Reason for Visit * Reason Comments Crohn's Disease * Medication Authorization (Routine) - Closed Specialty Diagnoses / Procedures Referred By Carolina song Referred To Contact Shreya Platt MD [address] [facility] [address] [place] [address] Phone: tel: fax: Referral ID Status Reason Start Date Expiration Date Visits Re quested Visits Authorized [id number] Closed 05/25/2022 06/24/2023 1 1 Encounter Details Date Type Department Care Team (Latest Contact Info) Description 05/25/2022 10:00 AM CDT Home Care Visit [facility] [address] [address] [address] [place] [address] Bipin Leiva RN SN INFUSION TREATMENT ROOM Social History Tobacco Use Types Packs/Day Years Used Date Smoking Tobacco: Never Smokeless Tobacco: Never Alcohol Use Standard Drinks/Week Comments Yes 0 (1 standard drink = 0.6 oz pur e alcohol) Comments Unknown Sex and Gender Information Value Date Recorded Sex Assigned at Not on file Legal Sex Female 12:12 AM LUMP ROLLER Gender Identity Not on file Sexual Orientation Not on file 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 file Not on file Not on file documented as of this encounter Last Filed Vital Signs Vital Sign Reading Time Taken Comments Blood Pressure 124/68 05/25/2022 1:30 PM CDT Pulse 84 05/25/2022 1:30 PM CDT Temperature 36.8 ??C (98.3 ??F) 05/25/2022 1:30 PM CD T Respiratory Rate 16 05/25/2022 1:30 PM CDT Oxygen Saturation 99% 05/25/2022 1:30 PM CDT Inhaled Oxygen Concentration - - Weight - - Height - - Body Mass Index - - documented in this encounter Miscellaneous Notes * Home Health Visit Narrative - Bipin Leiva RN - 05/25/2022 12:00 AM CDT Patient Covid screen performed [...] Rate Site 0.9 % sodium chloride ([facility] sodium chloride 0.9%) injection 10 mL, intravenous, As needed, line care, Starting on [place] 05/25/22 at 1634, Indications: Maintain Patency of Indwelling Vascular CatheterIndications:Maint ain Patency of Indwelling Vascular Catheter Given 05/25/2022 10:52 AM CDT 10 mL Left Antecubital Inactive Administered Medications - up to 3 most recent administrations Medication Order MAR Action Action Date Dose Rate Site acetaminophen (TYLENOL) 500 mg tablet 1,000 mg, oral, Every 4 weeks, First dose on [place] 05/25/22 at 1730, Please give 1000mg of acetaminophen (Tylenol) 30 minutes prior to Inflectra infusion, Indications: infusion reaction prophylaxisIndications:in fusion reaction prophylaxis Given 05/25/2022 10:15 AM CDT 1,000 mg inFLIXimab-dyyb 500 mg in sodium chloride 0.9% 0.9% IVPB 500 mg, intravenous, Every 4 weeks, First dose on [place] 05/25/22 at 1730, Infuse 500mg Infliximab in 250mL Normal Saline over 2 hours with 1.2 micron filter every 4 weeks., Indications: Crohn's DiseaseIndications:Crohn' s Disease Given 05/25/2022 10:52 AM CDT 500 mg Left Antecubital loratadine 10 mg capsule 10 mg, oral, Every 4 weeks, First dose on [place] 05/25/22 at 1730, Please give 10mg of loratadine (Claritin) 30 minutes prior to Inflectra infusion, Indications: infusion reaction prophylaxisIndications:in fusion reaction prophylaxis Given 05/25/2022 10:15 AM CDT 10 mg documented in this [...] home health visit Disciplines: SN, PT, OT, SCREEN ROLLER, CELL INSTALLER, Skilled Disciplines Monitor patient's vital signs every [...] follow medication therapy Completed Patient reports ongoing N,V,D, and constipation unrelieved with infusions. Patient reports no adverse effects of medications. Monitor Vital Signs [...] strategies to prevent infection: frequent/proper hand-washing techniques, [place] precautions, avoid crowds and persons with known infections, staying current with immunizations, s/s of infection, use of antibiotics and encourage adequate diet and fluid intake. Instruct patient on how to recognize signs and symptoms of infection and when to notify HH nurse and/or physician. Problem:Learning/Teac adi Needs - IV Therapy Completed Patient instructed on frequent/proper hand-washing techniques, [place] precautions, avoid crowds and persons with known [...] site. documented in this encounter Care Teams Dural Mechanic Relationship Specialty Start Date End Date Gucci Manrique MD PCP - General Family Medicine 07/06/20 documented as of this encounter
--- OUTSIDE RECORDS SUMMARY | 2024-08-13 20:14 | XMS_ITS | Encounter Summary ---
Author Organization [facility] Home Care [facility] Address [address] [place] [address] Phone Care Team Providers Care Wind Field Service Manager Name Role Phone Gucci Manrique MD Primary Care Provider [phone] Encounter Details Date Type Department Care Team (Late st Contact Info) Description 11/08/2021 Plan of Care Documentation [facility] [address] [address] [address] [place] [address] Social History Tobacco Use Types Packs/Day Years Used Date Smoking Tobacco: Never Smokeless Tobacco: Never Alcohol Use Standard Drinks/Week Comments Yes 0 (1 standard drink = 0.6 oz pur e alcohol) Comments Unknown Sex and Gender Information Value Date Recorded Sex Assigned at Not on file Legal Sex Female 12:12 AM INSURANCE CLAIMS ASSISTANT Gender Identity Not on file Sexual Orientation Not on file 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
--- OUTSIDE RECORDS SUMMARY | 2024-08-13 20:14 | XMS_ITS | Encounter Summary ---
Author Organization [facility] Address [address] [place] [address] Phone Care Team Providers Care Rf Technician Name Role Phone Gucci Manrique MD Primary Care Provider + [phone] Reason for Referral * Diagnostic Imaging (Routine) - Closed Specialty Diagnoses / Procedures Referred By Carolina song Referred To Contact Diagnoses Low back pain, unspecified back pain laterality, unspecified chronicity, unspecified whether sciatica present Procedures XR Spine Lumbar Ap Lat Flex Ext min 4 Views Amie Quiroga CNS Phone: tel: fax: [address] [address] Referral ID Status Reason Start Date Expiration Date Visits Re quested Visits Authorized [id number] Closed 07/08/2020 08/07/2021 1 1 OSURGERY SPINE PHYSICIAN Encounter Details Date Type Department Care Team (Latest Contact Info) Description 07/09/2020 9:45 AM NEUROSURGERY SPINE PHYSICIAN Office Visit [facility] [address] [facility] [address] [place] [id number] Amie Quiroga CNS [id number] [facility] [address] [place] [address] Low back pain, unspecified back pain laterality, unspecified chronicity, unspecified whether sciatica present (Primary Dx); Lumbar degenerative disc disease Social History Tobacco Use Types Packs/Day Years Used Date Smoking Tobacco: Never Smokeless Tobacco: Never Alcohol Use Standard Drinks/Week Comments Yes 0 (1 standard drink = 0.6 oz pur e alcohol) Comments Unknown Sex and Gender Information Value Date Recorded Sex Assigned at Not on file Legal Sex Female 12:12 AM NEUROSURGERY SPINE PHYSICIAN Gender Identity Not on file Sexual Orientation Not on file 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 file Not on file Not on file documented as of this encounter Last Filed Vital Signs Vital Sign Reading Time Taken Comments Blood Pressure - - Pulse - - Temperature - - Respiratory Rate - - Oxygen Saturation - - Inhaled Oxygen Concentration - - Weight 106.6 kg (235 lb) 07/09/2020 10:45 AM NEUROSURGERY SPINE PHYSICIAN Height 162.6 cm (5' 4 ) 07/09/2020 10:45 AM NEUROSURGERY SPINE PHYSICIAN Body Mass Index 40.34 07/09/2020 10:45 AM NEUROSURGERY SPINE PHYSICIAN documented in this encounter Ordered Prescriptions Prescription Sig Dispense Quantity Refills Last Filled Start Date End Date diclofenac DR (VOLTAREN) 50 mg EC tablet [The details of the medication are not available because there are pending changes by a home health clinician.] 60 tablet 07/09/2020 2 documented in this encounter Progress Notes * Amie Quiroga, CAR MECHANIC - 07/09/2020 9:45 AM CST NEW PATIENT VISIT Subjective HISTORY OF PRESENT ILLNESS Ms. Miner presented to my office with complaints of low back pain and left lower extremity dysesthesias. She does not recall any particular trauma or inciting event which may have brought her symptoms on. She has had pain for approximately 6 months however it has worsened over the past several weeks. She has some midline low back pain however the worst pain is situated over the right posteriorpelvis. She complains of muscle spasms. She reports intermittent dysesthesias which travel down theposterior lateral aspect of her right leg terminating at the ankle. These dysesthesias are not present at all times. They seem to come and go. She does not have any left leg symptoms. She denies lower extremity weakness. She denies alterations in bowel bladder function. She has had career technology teacher. She takes occasional tramadol and Aleve. PAST MEDICAL HISTORY She has a past medical history of Migraines. PAST SURGICAL HISTORY She has a past surgical history that includes [place] tooth extraction. INITIAL REVIEW OF MEDICATIONS She has a current medication list which includes the following prescription(s): diclofenac dr and tramadol. DRUG ALLERGIES She has No Known Allergies. SOCIAL HISTORY She reports that she has never smoked. She has never used smokeless tobacco. She reports current alcohol use. She reports that she does not use drugs. 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 REVIEW OF SYSTEMS Complete review of systems is in the chart. She reports positive back pain, headaches Objective PHYSICAL EXAMINATION General appearance: In no acute distress, well developed, obese Gait: Appears normal, no use of assist devices Head: Normocephalic, atraumatic Oral Cavity: Mucosa moist Skin: Warm and dry, normal turgor and color Vascular: Peripheral pulses palpable in both wrists and both feet Extremities: No cyanosis, clubbing or edema noted Musculoskeletal: No atrophy noted. General Neurological: Cranial Nerves: II-XII normal bilaterally Speech: Normal Involuntary movements: no tremors seen ?? Lumbar/Thoracic Exam: Inspection: There are no skin lesions. There is no visible deformity. Palpation: She reports tenderness to palpation at the lumbosacral junction and over the right posterior pelvis there is no pain over the greater trochanters Hip Range of Motion: Full and nontender bilaterally Straight Leg Raise: Negative bilaterally Motor Strength: 5/5 in both lower extremities. She is able to walk on her toes and her heels Reflexes: 2/4 at the knees and ankles Plantar Response: downgoing Sensation: intact ?? REVIEW OF X-RAYS/STUDIES I ordered and reviewed lumbar spine x-rays today in the office. 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 Alignment is normal. There is no compression fracture. There is normal motion with bending. There is mild degenerative disc disease at L5-S1. I also reviewed an MRI scan of the lumbar spine performed on June 21, 2020. At L4-L5 there is a central disc extrusion. The images are a bit blurry but he may produce some mild lateral recess stenosis. There is no central canal stenosis or neuroforaminal stenosis on the right side. The remainderof the study is unremarkable. Assessment/Plan IMPRESSION/DIAGNOSIS/PLAN Ms. Miner is experiencing low back pain which I believe is secondary to the degenerative disc seen on her MRI scan. She may be getting some mild nerve root irritation secondary to lateral recess stenosis which is producing the dysesthesias in her right lower extremity. We discussed various treatment alternatives. I have stressed that weight loss is imperative to preserving her disc health overtime. I would like to get her into a formal course of physical therapy aimed at core and lower extremity strengthening. I have written her a prescription for diclofenac. I have instructed her on the use of this medication and potential side effects. She voices understanding. She understands she cannot take Aleve while trialing the diclofenac. She is going to contact my office in approximately 2 weeks with an update on her progress. If she has not made any improvement we can consider a L4-L5 epidural steroid injection to see if it might calm down her acute pain. We discussed the natural history of degenerative disease in the spine over time. She and her mom voiced understanding. She is goingto have a regular follow-up in my office in 6 weeks time. She knows she can contact my office before that time with questions or concerns. FOLLOW UP 6 weeks Amie Quiroga RN, MSN, FARM EQUIPMENT OPERATOR- Spine Service [facility] ?? Collaborative practice with Dr. Kike Pemberton ?? Amie Quiroga RN, MSN, FARM EQUIPMENT OPERATOR dictating using Fluency Direct Software. Test Bore Helper variances may occur. OSURGERY SPINE PHYSICIAN documented in this encounter Plan of Treatment Not on file documented as of this encounter Results * XR Spine Lumbar Ap Lat Flex Ext min 4 Views (07/09/2020 9:37 AM NEUROSURGERY SPINE PHYSICIAN) Anatomical Region Laterality Modality L-spine N/A Computed Radiogr aphy 07/09/2020 10:0 0 AM NEUROSURGERY SPINE PHYSICIAN Impressions 07/09/2020 10:23 AM NEUROSURGERY SPINE PHYSICIAN There is partial lumbarization of S1 with mild degenerative disc disease at L5-S1. Dictated by: Rodolfo Winkler MD, PHD The radiology attending physician has personally reviewed this study, and had reviewed and/or edited this written report and agrees with it. Electronically signed by: Ramiro Bronson MD, PHD Narrative 07/09/2020 10:23 AM NEUROSURGERY SPINE PHYSICIAN EXAMINATION: XR SPINE LUMBAR AP LAT FLEX EXT MIN 4 VIEWS HISTORY: 19-year-old female with back pain and numbness. COMPARISON: None available FINDINGS: 4 views of the lumbar spine are submitted for interpretation. ??There is lumbosacral transitional vertebrae with partial lumbarization of S1. ??Alignment is normal. ??There is no compression fracture. ??There is normal motion with bending. ??There is mild degenerative disc disease at L5-S1. Procedure Note Ramiro Bronson MD PhD - 07/09/2020 EXAMINATION: XR SPINE LUMBAR AP LAT FLEX EXT MIN 4 VIEWS HISTORY: 19-year-old female with back pain and numbness. COMPARISON: None available FINDINGS: 4 views of the lumbar spine are submitted for interpretation. 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 Alignment is normal. There is no compression fracture. There is normal motion with bending. There is mild degenerative disc disease at L5-S1. IMPRESSION: There is partial lumbarization of S1 with mild degenerative disc disease at L5-S1. Dictated by: Rodolfo Winkler MD, PHD The radiology attending physician has personally reviewed this study, and had reviewed and/or edited this written report and agrees with it. Electronically signed by: Ramiro Bronson MD, PHD Amie Quiroga CAR MECHANIC IMG XR PROCEDURES Final Res ult documented in this encounter Visit Diagnoses Diagnosis Low back pain, unspecified back pain laterality, unspecified chronicity, unspecified whether sciatica present- Primary Lumbar degenerative disc disease Low back pain, unspecified back pain laterality, unspecified chronicity, unspecified whether sciatica present documented in this encounter Historical Medications * This list may reflect changes made after this encounter. Medication Sig Dispense Quantity Refills Last Filled Start D ate End Date traMADoL (ULTRAM) 50 mg tabletIndications:Christiana n 0 07/06/2020 01/11/2023 added in this encounter Care Teams Rf Technician Relationship Specialty Start Date End Date Gucci Manrique MD PCP - General Family Medicine 07/06/20 documented as of this encounter
--- OUTSIDE RECORDS SUMMARY | 2024-08-13 20:14 | XMS_ITS | Encounter Summary ---
Author Organization [facility] Address [address] [place] [address] Care Team Providers Care Panel Laminator Name Role Phone Gucci Manrique MD Primary Care Provider + [phone] Reason for Referral * Diagnostic Imaging (Routine) - Closed Specialty Diagnoses / Procedures Referred By Contac t Referred To Contact Diagnoses Low back pain, unspecified back pain laterality, unspecified chronicity, unspecified whether sciatica present Procedures XR Spine Lumbar Ap Lat Flex Ext min 4 Views Amie Quiroga CNS Phone: tel: fax: [place] [address] [place] [phone] Referral ID Status Reason Start Date Expiration Date Visits Re quested Visits Authorized [id number] Closed 07/08/2020 08/07/2021 1 1 MANAGEMENT FORESTER Reason for Visit * Diagnostic Imaging (Routine) - Closed Specialty Diagnoses / Procedures Referred By Contac t Referred To Contact Diagnoses Low back pain, unspecified back pain laterality, unspecified chronicity, unspecified whether sciatica present Procedures XR Spine Lumbar Ap Lat Flex Ext min 4 Views Amie Quiroga CNS Phone: tel: fax: [place] [address] [place] [phone] Referral ID Status Reason Start Date Expiration Date Visits Re quested Visits Authorized [id number] Closed 07/08/2020 08/07/2021 1 1 Encounter Details Date Type Department Care Team (Latest Contact Info) Description 07/09/2020 9:27 AM LAND MANAGEMENT FORESTER - 07/09/2020 11:59 PM LAND MANAGEMENT FORESTER Hospital Encounter [id number] [address] [facility] [address] [place] [address] Kike Pemberton MD [address] [facility] [address] [place] [address] Amie Quiroga, [facility] [address] [place] [address] Low back pain, unspecified back pain laterality, unspecified chronicity, unspecified whether sciatica present Discharge Disposition: Discharge to home or self care Social History Tobacco Use Types Packs/Day Years Used Date Smoking Tobacco: Never Smokeless Tobacco: Never Alcohol Use Standard Drinks/Week Comments Yes 0 (1 standard drink = 0.6 oz pur e alcohol) Comments Unknown Sex and Gender Information Value Date Recorded Sex Assigned at Not on file Legal Sex Female 12:12 AM LAND MANAGEMENT FORESTER Gender Identity Not on file Sexual Orientation Not on file 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 Not on file Not on file documented as of this encounter Medications at Time of Discharge diclofenac DR (VOLTAREN) 50 mg EC tablet [The details of the medication are not available because there are pending changes by a home health clinician.] 60 tablet 07/09/2020 2 traMADoL (ULTRAM) 50 mg tabletIndication s:Pain 0 07/06/2020 3 documented as of this encounter Discharge Disposition Disposition Code Departure Means Destination Discharge to home or self care documented in this encounter Plan of Treatment Not on file documented as of this encounter Procedures Procedure Name Priority Date/Time Associated Diagnosis Comments XR LUMBAR SPINE AP LAT FLEX EX Schedule Routine, Read Routine (OP Routine) 07/09/2020 9:37 AM LAND MANAGEMENT FORESTER Low back pain, unspecified back pain laterality, unspecified chronicity, unspecified whether sciatica present documented in this encounter Results * XR Spine Lumbar Ap Lat Flex Ext min 4 Views (07/09/2020 9:37 AM LAND MANAGEMENT FORESTER) Anatomical Region Laterality Modality L-spine N/A Computed Radiogr aphy 07/09/2020 10:0 0 AM LAND MANAGEMENT FORESTER Impressions 07/09/2020 10:23 AM LAND MANAGEMENT FORESTER There is partial lumbarization of S1 with mild degenerative disc disease at L5-S1. Dictated by: Rodolfo Winkler MD, PHD The radiology attending physician has personally reviewed this study, and had reviewed and/or edited this written report and agrees with it. Electronically signed by: Ramiro Bronson MD, PHD Narrative 07/09/2020 10:23 AM LAND MANAGEMENT FORESTER EXAMINATION: XR SPINE LUMBAR AP LAT FLEX [...] Electronically signed by: Ramiro Bronson MD, PHD us Amie S. Junaid POLICE SHIFT COMMANDER IMG XR PROCEDURES Final Res ult documented in this encounter Visit Diagnoses Diagnosis Low back pain, unspecified back pain laterality, unspecified chronicity, unspecified whether sciatica present documented in this encounter Care Teams Panel Laminator Relationship Specialty Start Date End Date Gucci Manrique MD PCP - General Family Medicine 07/06/20 documented as of this encounter
--- OUTSIDE RECORDS SUMMARY | 2024-08-13 20:14 | XMS_ITS | Encounter Summary ---
Author Organization [facility] Address [address] [place] [address] Phone Care Team Providers Care Multiple Pressure Riveter Operator Name Role Phone Gucci Manrique MD Primary Care Provider [phone] Reason for Visit * Reason Comments Crohn's Disease * Medication Authorization (Routine) - Closed Specialty Diagnoses / Procedures Referred By Carolina song Referred To Contact Shreya Platt MD [address] [facility] [address] [place] [address] Phone: tel: fax: Referral ID Status Reason Start Date Expiration Date Visits Re quested Visits Authorized [id number] Closed 01/20/2022 02/19/2023 1 1 Encounter Details Date Type Department Care Team (Latest Contact Info) Description 01/20/2022 12:00 PM CDT Home Care Visit [facility] [address] [address] [address] [place] [address] Bipin Leiva RN SN INFUSION TREATMENT ROOM Social History Tobacco Use Types Packs/Day Years Used Date Smoking Tobacco: Never Smokeless Tobacco: Never Alcohol Use Standard Drinks/Week Comments Yes 0 (1 standard drink = 0.6 oz pur e alcohol) Comments Unknown Sex and Gender Information Value Date Recorded Sex Assigned at Not on file Legal Sex Female 12:12 AM DOGMAN/WOMAN Gender Identity Not on file Sexual Orientation Not on file 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 Not on file Not on file documented as of this encounter Last Filed Vital Signs Vital Sign Reading Time Taken Comments Blood Pressure 104/66 01/20/2022 4:00 PM CDT Pulse 70 01/20/2022 4:00 PM CDT Temperature 37.1 ??C (98.7 ??F) 01/20/2022 4:00 PM CD T Respiratory Rate 16 01/20/2022 4:00 PM CDT Oxygen Saturation 99% 01/20/2022 4:00 PM CDT Inhaled Oxygen Concentration - - Weight - - Height 162.6 cm (5' 4 ) 01/20/2022 12:10 PM CDT Body Mass Index - - documented in this encounter Miscellaneous Notes * Home Health Visit Narrative - Bipin Leiva RN - 01/20/2022 12:00 AM CDT Patient Covid screen performed prior to arrival. Assessed patient upon arrival for IV infusion of Inflectra. All findings and vital signs WNL. PIV started without difficulty. No signs/ symptoms of bleeding, hematoma, or infiltration. Pre-medications given prior to infusion as ordered. Thirty minutes into infusion patient reported discomfort at insertion site. PIV discontinued and restarted in left hand. Infusion completed without any further incident. Patient's vital signs assessed throughout and upon infusion completion. WNL. PIV removed intact without complications. No signs/ symptoms of bleeding or hematoma. Pressure held to site until hemostasis achieved. Gauze and paper tape applied tosite. Patient's questions answered. Patient discharged to home, [...] Dose Rate Site 0.9 % sodium chloride ([facility] sodium chloride 0.9%) injection 10 mL, intravenous, As needed, line care, Starting on Sun01/20/22 at 1428, Indications: Maintain Patency of Indwelling Vascular CatheterIndications:Maintain Patency of Indwelling Vascular Catheter Given 01/20/2022 12:30 PM CDT 10 mL Left Hand Inactive Administered Medications - up to 3 most recent administrations Medication Order MAR Action Action Date Dose Rate Site acetaminophen (TYLENOL) 500 mg tablet 1,000 mg, oral, Every 4 weeks, First dose on Sun01/20/22 at 1715, Please give 1000mg of acetaminophen (Tylenol) 30 minutes prior to Inflectra infusion, Indications: infusion reaction prophylaxisIndications:infusi on reaction prophylaxis Given 01/20/2022 12:32 PM CDT 1,000 mg diphenhydrAMINE (diphenhydrAMINE HCL) 50 mg/mL injection 25 mg, intravenous, Every 4 weeks, First dose on Sun01/20/22 at 1715, Please give 25mg (0.5mL) of diphenhydramine (Benadryl) via IV push 30 minutes prior to Inflectra infusion., Indications: infusion reaction prophylaxisIndications:infusi on reaction prophylaxis Given 01/20/2022 12:30 PM CDT 25 mg Left Hand inFLIXimab-dyyb 500 mg in sodium chloride 0.9% 0.9% IVPB 500 mg, intravenous, Every 4 weeks, First dose on Sun01/20/22 at 1715, Infuse 500mg Infliximab in 250mL Normal Saline over 2 hours with 1.2 micron filter every 4 weeks., Indications: Crohn's DiseaseIndications:Crohn's Disease Given 01/20/2022 1:15 PM CDT 500 mg Left Hand loratadine 10 mg capsule 10 mg, oral, Every 4 weeks, First dose on Sun01/20/22 at 1715, Please give 10mg of loratadine (Claritin) 30 minutes prior to Inflectra infusion, Indications: infusion reaction prophylaxisIndications:infusi on reaction prophylaxis Given 01/20/2022 12:32 PM CDT 10 mg documented in this [...] home health visit Disciplines: SN, PT, OT, FURNITURE REMOVALIST, METAL TESTER, Skilled Disciplines Monitor patient's vital signs every [...] and instructed patient on severe drug interactions. MD aware of severe interactions. Instruct on [...] Patient reports no improvement of symptoms since beginning Inflectra infusions. Infusion frequency changed with this infusion. Monitor Vital Signs Description: Monitor blood [...] strategies to prevent infection: frequent/proper hand-washing techniques, Ronks precautions, avoid crowds and persons with known infections, staying current with immunizations, s/s of infection, use of antibiotics and encourage adequate diet and fluid intake. Instruct patient on how to recognize signs and symptoms of infection and when to notify HH nurse and/or physician. Problem:Learning/Teac adi Needs - IV Therapy Completed Patient instructed on frequent/proper hand-washing techniques, Ronks precautions, avoid crowds and persons with known [...] site. documented in this encounter Care Teams Multiple Pressure Riveter Operator Relationship Specialty Start Date End Date Gucci Manrique MD PCP - General Family Medicine 07/06/20 documented as of this encounter
--- OUTSIDE RECORDS SUMMARY | 2024-08-13 20:14 | XMS_ITS | Encounter Summary ---
Author Organization [facility] Address [address] [place] [address] Phone Care Team Providers Care Field Artillery Fire Control Man Name Role Phone Gucci Manrique MD Primary Care Provider [phone] Encounter Details Date Type Department Care Team ([facility] st Contact Info) Description 02/17/2022 Orders Only [facility] [address] [place] [id number] Daniel Celaya, [facility] Social History Tobacco Use Types Packs/Day Years Used Date Smoking Tobacco: Never Smokeless Tobacco: Never Alcohol Use Standard Drinks/Week Comments Yes 0 (1 standard drink = 0.6 oz pur e alcohol) Comments Unknown Sex and Gender Information Value Date Recorded Sex Assigned at Not on file Legal Sex Female 12:12 AM ARCHITECTURAL MODEL MAKER Gender Identity Not on file Sexual Orientation Not on file 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 Formulary change 12/28/2021 02/17/2022 documented as of this encounter Historical Medications * This list may reflect changes made after this encounter. diphenhydrAMINE (BENADRYL) 25 mg capsuleIndicatio ns:infusion reaction prophylaxis Take 25 mg by mouth every 6 (six) hours as needed for itching Please give 25mg of diphenhydramine (Benadryl) by mouth 30 minutes prior to Inflectra infusion. 2 07/03/20 23 added in this encounter Care Teams Field Artillery Fire Control Man Relationship Specialty Start Date End Date Gucci Manrique MD PCP - General Family Medicine 07/06/20 documented as of this encounter
--- OUTSIDE RECORDS SUMMARY | 2024-08-13 20:14 | XMS_ITS | Encounter Summary ---
Author Organization [facility] Address [address] [place] [address] Phone Care Team Providers Care Modern Dancer Name Role Phone Gucci Manrique MD Primary Care Provider [phone] Reason for Visit * Reason Comments Crohn's Disease * Medication Authorization (Routine) - Closed Specialty Diagnoses / Procedures Referred By Carolina song Referred To Contact Shreya Platt MD [address] [facility] [address] [place] [address] Phone: tel: fax: Referral ID Status Reason Start Date Expiration Date Visits Re quested Visits Authorized [id number] Closed 03/16/2022 04/15/2023 1 1 Encounter Details Date Type Department Care Team (Latest Contact Info) Description 03/16/2022 10:00 AM CDT Home Care Visit [facility] [address] [address] [address] [place] [address] Bipin Leiva RN SN INFUSION TREATMENT ROOM Social History Tobacco Use Types Packs/Day Years Used Date Smoking Tobacco: Never Smokeless Tobacco: Never Alcohol Use Standard Drinks/Week Comments Yes 0 (1 standard drink = 0.6 oz pur e alcohol) Comments Unknown Sex and Gender Information Value Date Recorded Sex Assigned at Not on file Legal Sex Female 12:12 AM EMBEDDED PROCESSOR Gender Identity Not on file Sexual Orientation Not on file 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 Not on file Not on file documented as of this encounter Last Filed Vital Signs Vital Sign Reading Time Taken Comments Blood Pressure 110/62 03/16/2022 1:54 PM CDT Pulse 75 03/16/2022 1:54 PM CDT Temperature 36.9 ??C (98.5 ??F) 03/16/2022 1:54 PM CD T Respiratory Rate 16 03/16/2022 1:54 PM CDT Oxygen Saturation 99% 03/16/2022 1:54 PM CDT Inhaled Oxygen Concentration - - Weight - - Height 162.6 cm (5' 4 ) 03/16/2022 10:22 AM CDT Body Mass Index - - documented in this encounter Miscellaneous Notes * Home Health Visit Narrative - Bipin Leiva RN - 03/16/2022 12:00 AM CDT Patient Covid screen performed [...] symptoms of bleeding or hematoma. Pressure held tosite until hemostasis achieved. Gauze and paper tape applied to site. Patient's questions answered.Patient discharged to home, ambulatory and in stable [...] Dose Rate Site 0.9 % sodium chloride ([facility] sodium chloride 0.9%) injection 10 mL, intravenous, As needed, line care, Starting on [place] 03/16/22 at 1203, Indications: Maintain Patency of Indwelling Vascular CatheterIndications:Maintain Patency of Indwelling Vascular Catheter Given 03/16/2022 11:35 AM CDT 10 mL Left Hand Inactive Administered Medications - up to 3 most recent administrations Medication Order MAR Action Action Date Dose Rate Site acetaminophen (TYLENOL) 500 mg tablet 1,000 mg, oral, Every 4 weeks, First dose on [place] 03/16/22 at 1415, Please give 1000mg of acetaminophen (Tylenol) 30 minutes prior to Inflectra infusion, Indications: infusion reaction prophylaxisIndications:infusi on reaction prophylaxis Given 03/16/2022 11:04 AM CDT 1,000 mg inFLIXimab-dyyb 500 mg in sodium chloride 0.9% 0.9% IVPB 500 mg, intravenous, Every 4 weeks, First dose on [place] 03/16/22 at 1415, Infuse 500mg Infliximab in 250mL Normal Saline over 2 hours with 1.2 micron filter every 4 weeks., Indications: Crohn's DiseaseIndications:Crohn's Disease Given 03/16/2022 11:35 AM CDT 500 mg Left Hand loratadine 10 mg capsule 10 mg, oral, Every 4 weeks, First dose on [place] 03/16/22 at 1415, Please give 10mg of loratadine (Claritin) 30 minutes prior to Inflectra infusion, Indications: infusion reaction prophylaxisIndications:infusi on reaction prophylaxis Given 03/16/2022 11:04 AM CDT 10 mg documented in this [...] home health visit Disciplines: SN, PT, OT, EMAIL MARKETER, DIPLOMA PHARMACY TECHNICIAN, Skilled Disciplines Monitor patient's vital signs [...] problem interventions scheduled/documen mauricio in this visit Learning/Teachazucena sorensen Needs - IV Therapy Disciplines: Long-Term Teaching [...] follow medication therapy Completed Patient reports no change of symptoms with infusions. She reports ongoing dull abdominal pain, with occasional shooting pain. Patient has f/u appointment with Dr Platt on 03/27. Monitor Vital Signs Description: Monitor blood pressure, [...] strategies to prevent infection: frequent/proper hand-washing techniques, [place] precautions, avoid crowds and persons with known infections, staying current with immunizations, s/s of infection, use of antibiotics and encourage adequate diet and fluid intake. Instruct patient on how to recognize signs and symptoms of infection and when to notify HH nurse and/or physician. Problem:Learning/Teac adi Needs - IV Therapy Completed Patient instructed on frequent/proper hand-washing techniques, [place] precautions, avoid crowds and persons with known [...] site. documented in this encounter Care Teams Modern Dancer Relationship Specialty Start Date End Date Gucci Manrique MD PCP - General Family Medicine 07/06/20 documented as of this encounter
== END 2024-08-09 14:26 | disposition home or self-care (01) ==
PROVIDERS: PCP Obstetrics & Gynecology; Visit Provider Obstetrics & Gynecology
DX: Z34.93 Encounter for supervision of normal pregnancy, unspecified, third trimester (principal); Z3A.00 Weeks of gestation of pregnancy not specified
CPT/HCPCS: 36415; 85027; 86592; 86703; 86850; 86900; 86901; G0432

== ENCOUNTER 2024-08-11 05:50 | Inpatient (IN) | payer OTHER, SELFPAY ==
[2024-08-11] VITALS (40 sets, daily range): BP systolic 97–135; BP diastolic 49–95; PULSE 61–98; RESP 16–20; TEMP 36.4–37; O2SAT 95–100; BMI 39.3; BMI 40.4
[2024-08-11] MEDS: LACTATED RINGERS 1,000 ML 125 ML IV CONT (06:30)
--- NOTE | 2024-08-11 06:54 | LDADM ---
This patient, Pennie Aguila, was admitted to Labor/Delivery/Recovery 120 on 08/11/24 at 05:50. Plans for labor, pain management and were discussed with patient. Patient/family oriented to hospital policies and general routines including ID bracelet, bed and alarms, visiting hours, pain management, procedures, bathroom and other care routines, personal items, smoking policy, room service/diet and guest tray routines, infant security routines, and visiting hours. Patient/Family are encouraged to report perceived risks to care and to ask questions if they do not understand what they are told or what they should do. See OBIX for further documentation.
[2024-08-11] MEDS: ONDANSETRON INJ 4 MG/2 ML VIAL IV PUSH (07:22)
--- NOTE | 2024-08-11 07:24 | P.HP_ITS ---
H&P: HPI History of Present Illness Date/Time: 08/11/24 07:24 23-year-old female presents for repeat delivery. Thirty-nine weeks gestation with essentially uncomplicated care. She has a personal history of Crohn's disease, baby tachycardia early issues have a problem during the and cardiogram normal. Chief Complaint: Review of Systems Review of Systems: All systems reviewed & are unremarkable except as noted in HPI and below PMFSH Past Medical History Medical History Suppression of menstruation Hemorrhoid Gastritis Epigastric pain Crohn's disease of ileum Ileitis BMI 40.0-44.9, adult Strain of cervical portion of left trapezius muscle Surgical History Surgical History Delivery by section (01/31/23) primary c/s failed induction Family History Family History Father CPAP (continuous positive airway pressure) dependence Mother No problems noted. Sibling Crohn's disease Other Malignant tumor of pancreas maternal uncle Other Diabetes mellitus Social History Social History Smoking status: Never smoker Second hand tobacco smoke exposure: No Alcohol intake: never Alcohol use details: 2X monthly Substance use: never Substance use type: marijuana Other substance usage details: daily Last use: 04/27/2022 Do You Feel Safe in your Home?: Yes Lack of Transportation: No Lack of Food: Never True Current Housing: I Have Housing Concerned About Future Housing: No Difficulty Paying Gas/Electric Bills: No Difficulty Paying for Meds: No Currently Unemployed: No Education: Don't Know Difficulty w/ Childcare or Family Care: No Living arrangements: with family Additional living arrangements comments: son Occupation/Education: unemployed 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 Gender identity (if verbalized by the patient): Female Sexual Orientation (if Verbalized by the Patient): Straight or Heterosexual Spiritual care concerns: No Meds Home Medications and Allergies Home Medications ?Medication ?Instructions ?Recorded ?Confirmed ?Type vits no.10-ferrous 1 tablet PO DAILY 12/31/23 08/09/24 History fumarate 65 mg iron-folic acid 1 mg tablet infliximab-dyyb 100 mg intravenous 100 mg IV MONTHLY 01/30/24 08/09/24 History solution (Inflectra) Allergies Allergy/AdvReac Type Severity Reaction Status Date / Time ketorolac (From Toradol) AdvReac Other Verified 08/09/24 14:28 NSAIDS (Non-Steroidal AdvReac Other Verified 08/09/24 14:28 Anti-Inflamma Vital Signs Vital Signs - 24 hr 08/11/24 06:52 08/11/24 06:59 08/11/24 07:18 Temperature 98.6 F Pulse Rate 88 Blood Pressure 121/58 L Oxygen Delivery Room Air Exam Resp: Effort & Inspection: normal respiratory effort Auscultation: clear to auscultation bilaterally Cardio: Rate: regular rate Rhythm: regular rhythm GI: Inspection: normal to inspection Auscultation: normal bowel sounds : Bimanual exam- vagina & uterus: enlarged ( fundal height 40cm, heart tone 140) Assessment and Plan Assessment and plan (1) 39 weeks gestation of : Code(s): Z3A.39 - 39 weeks gestation of Status: Acute (2) Crohn's disease of ileum: Code(s): K50.00 - Crohn's disease of small intestine without complications Status: Acute (3) Previous delivery affecting : Code(s): O34.219 - Maternal care for unspecified type scar from previous delivery Status: Acute Plan proceed repeat delivery.
[2024-08-11 07:26] LABS: Rapid Plasma Reagin Non-Reactive (NonReactive)
[2024-08-11] MEDS: ceFAZolin 2 GM/D5W 50 ML 2 GM/50 ML BAG IVPB (07:37)
[2024-08-11 07:43] LABS: HIV 1/2 Ab P24 Ag Result Negative (Negative)
--- NOTE | 2024-08-11 08:55 | WPDHPUPDATE1 ---
History and Physical Update Update Date/Time: 08/11/24 08:55 History and Physical has been reviewed, including an updated exam of the patient. There are NO changes in the patient's condition. Risks, benefits, and alternatives have been discussed and questions answered. Patient agrees to proceed with procedure.
--- NOTE | 2024-08-11 08:55 | W.PM.OBCSD ---
OB - Delivery Note Procedure Delivery date: 08/11/24 Pre-op diagnosis: Previous Delivery Post-op Diagnosis: Same Procedure Performed: Repeat Secondary branch: low cervical, transverse Surgeon: Issa Mccall MD Anesthesia type: Spinal Description of Procedure/Findings: Patient prepped and draped in usual manner for this procedure. Pfannenstiel incision was made and carried down to the fascia. This incision was extended bilaterally the length of the lower incision. Bladder flap developed without difficulty and the uterus was scored. Vertex was delivered without difficulty, small superficial laceration was noted and minimal oozing from this spot. Cord was clamped and cut and baby was passed off the operative field. Placenta was removed manually. Uterus was exteriorized, cleared of clots, and closed using 0 Monocryl in a running interlocking manner. There were 2 areas of bleeding which were rendered hemostatic with [id number] sutures of 0 Monocryl as well. Uterus was turned the abdomen no significant bleeding was noted and hematoma was placed empirically over the uterine incision. All subfascial tissue was inspected and noted to be hemostatic and the fascia was then approximated using 0 Vicryl from the left angle to midline right angle to midline. Subcutaneous tissue was approximated using 0 plain suture and luzma were then used to approximate the skin edges. Patient was then sent to the recovery room in stable condition. Specimen: No Estimated Blood Loss: 285 Drains: Yes (Arteaga catheter) Packing: No Pathology: None sent Complications: No immediate complications Condition: Stable Disposition: PACU Baby Gestational Age by Date: 39 gender: Female Weight (pounds): 5 Weight (ounces): 15 presentation: vertex Placenta delivery description: Manual Removal Cord Vessel Description: 3 Vessels, Nuchal Cord and Reduced
[2024-08-11] MEDS: fentaNYL CITRATE INJ (*CRX) 100 MCG/2 ML VIAL 25 MCG IV PUSH ×2 (09:28→10:03)
[2024-08-11] MEDS: OXYTOCIN 30 UNITS/NS 500 ML 30 UNITS/500 ML BAG 125 UNITS IV CONT (10:10)
[2024-08-11] MEDS: MORPHINE SULFATE INJ (*CRX) 10 MG/ML AMP 2.5 MG IV PUSH (10:46)
[2024-08-11] MEDS: MORPHINE SULFATE (*CRX) 2 MG/ML INJ IV PUSH (11:44)
[2024-08-11] MEDS: LIDOCAINE 5% PATCH 1 PATCH TRANSDERM (11:45)
[2024-08-11] MEDS: SIMETHICONE 80 MG TAB.CHEW PO ×2 (11:45→17:25)
[2024-08-11] MEDS: ACETAMINOPHEN 325 MG TABLET 650 MG PO ×3 (11:46→23:27)
[2024-08-11] MEDS: DOCUSATE SODIUM 100 MG CAPSULE PO ×2 (11:46→17:25)
--- NOTE | 2024-08-11 14:12 | OBPPTRN ---
Patient transferred to post room #281 via (stretcher ). Support person present. Oriented to unit, room, information board, rooming in, admission packet and security measures. Patient verbalizes understanding.
--- NOTE | 2024-08-11 14:45 | PC.NURSE ---
Patient declined pain medication at this time-[id number].
[2024-08-11] MEDS: DEXTROSE 5%/0.45% SOD CHL 1,000 ML 125 ML IV CONT (14:46)
[2024-08-11] MEDS: HYDROcodone/acetaminophen (*CRX) 10-325 MG TABLET 1 TAB PO (17:24)
[2024-08-12 00:27] VITALS: BP 98/57; PULSE 86; RESP 18; TEMP 36.7; O2SAT 98
[2024-08-12] MEDS: HYDROcodone/acetaminophen (*CRX) 10-325 MG TABLET 1 TAB PO ×5 (03:09→19:43)
[2024-08-12] MEDS: ACETAMINOPHEN 325 MG TABLET 650 MG PO ×4 (05:19→23:50)
[2024-08-12 05:25] LABS: Basophils Percent Auto 0.2 % (0.2-1.2); Eosinophils Absolute Auto 0.1 K/mm3 (0-0.3); Eosinophils Percent Auto 0.6 % (0-4.4); Hematocrit 31.1 % (37.0-47.0); Hemoglobin 9.9 g/dL (12.0-15.0); Immature Granulocyte Absolute 0.03 K/mm3 (0.00-0.031); Immature Granulocyte Percent A 0.3 % (0-0.5); Lymphocytes Absolute Auto 2.35 K/mm3 (0.9-3.2); Lymphocytes Percent Auto 26.8 % (18.3-44.2); Mean Corpuscular HGB Conc 31.8 g/dl (32-36); Mean Corpuscular Hemoglobin 28.5 pg (26-34); Mean Corpuscular Volume 89.6 fl (80-100); Mean Platelet Volume 11.3 fl (7.4-10.4); Monocytes Absolute Auto 0.8 K/mm3 (0.1-0.6); Monocytes Percent Auto 9.1 % (2.6-8.5); Neutrophils Absolute Auto 5.5 K/mm3 (1.3-6.7); Platelet Count Result 193 k/mm3 (150-375); Red Blood Count 3.47 M/mm3 (4.2-5.4); Red Cell Distribution Width 12.4 % (11.5-14.5); White Blood Count 8.8 K/mm3 (4.5-10.0)
[2024-08-12 08:05] VITALS: BP 99/55; PULSE 63; RESP 16; TEMP 36.6; O2SAT 99
[2024-08-12] MEDS: SIMETHICONE 80 MG TAB.CHEW PO ×3 (08:07→16:24)
[2024-08-12] MEDS: DOCUSATE SODIUM 100 MG CAPSULE PO ×2 (08:08→16:24)
[2024-08-12] MEDS: LIDOCAINE 5% PATCH 1 PATCH TRANSDERM (11:39)
--- NOTE | 2024-08-12 16:34 | WPDANLDPN2 ---
Anes-Prog Note L&D Date/Time: 08/12/24 16:34 Comfortable throughout: section Neuraxial method: spinal Epidural/Spinal procedure site: clean & non-tender Neuro status: Neuro function grossly intact. Cardiovascular status: normal Respiratory status: normal Airway patency: baseline Mental status: baseline Post-Op hydration status: normal Vital Signs: Last Vital Signs Temp 36.6 C 08/12/24 08:05 Pulse 63 08/12/24 08:05 Resp 16 08/12/24 08:05 BP 99/55 L 08/12/24 08:05 Pulse Ox 99 08/12/24 08:05 O2 Del Method Room Air 08/11/24 15:30 Pain score (VAS): 0 I/O: Intake & Output 08/12/24 08/12/24 08/12/24 07:59 15:59 23:59 Intake Total 450 240 Output Total 1050 Balance -600 240 Post-procedural complaints: none Patient feedback: Patient satisfied with anesthetic care.
--- NOTE | 2024-08-12 16:35 | WPDANLDNPN2 ---
Anes-Prog Note L&D-Neuraxial Date/Time: 08/12/24 16:35 Neuraxial medications: intrathecal PF morphine Opiod-related complaints: none Patient feedback: Patient satisfied with post-operative pain management.
[2024-08-12 19:30] VITALS: BP 106/65; PULSE 91; RESP 16; TEMP 37; O2SAT 99
[2024-08-12] MEDS: CYCLOBENZAPRINE HCL 5 MG TABLET PO (19:43)
[2024-08-13] MEDS: CYCLOBENZAPRINE HCL 5 MG TABLET PO (05:40)
[2024-08-13] MEDS: ACETAMINOPHEN 325 MG TABLET 650 MG PO ×2 (05:40→12:08)
[2024-08-13] MEDS: BISACODYL 10 MG SUPPOSITORY RECTAL (05:50)
[2024-08-13 08:25] VITALS: BP 110/60; PULSE 70; RESP 16; TEMP 36.9; O2SAT 97
[2024-08-13] MEDS: DOCUSATE SODIUM 100 MG CAPSULE PO (08:38)
[2024-08-13] MEDS: SIMETHICONE 80 MG TAB.CHEW PO (08:38)
[2024-08-13] MEDS: LIDOCAINE 5% PATCH 1 PATCH TRANSDERM (12:08)
--- NOTE | 2024-08-13 12:56 | PM.OBPNVD ---
OB - PN: Subj Subjective Date/time seen: 08/13/24 12:56 S: Diet/void without difficulty. Minimal ambulation.Some RUQ discomfort, better after passing gas. O: VSS afebrile abd: + BS soft an tender inc: bandage C/D/I not tender Labs: noted A: doing well postop P: increase diet/ambulation/routine postop care OB - PN: Obj Data Labs 08/12/24 04:09 OB - PN A/P Time Spent With Patient Time: Total time spent is greater than 50% in coordination of care (as documented) at patient's floor/unit and/or counseling patient:
--- NOTE | 2024-08-13 14:47 | PM.OBDSVD ---
DS: Admitting Diagnosis Discharge Date 08/13/2024 Admitting Diagnosis DS: Discharge Diagnosis Discharge Diagnosis (1) , delivered: Code(s): O80 - Encounter for full-term uncomplicated delivery Status: Acute OB - DS: Summary OB Procedures : None OB Procedures Intrapartum: low cervical, transverse OB Procedures: : None Peripartum Data Procedures: Procedures Operation Date: 08/11/24 07:30 Actual Procedure Side Surgeon p Repeat Section Not Applicable Issa Mccall MD Time Spent with Patient Time attestation: Total time spent providing and/or coordinating discharge services: Discharge Plan Discharge Discharging Clinician: Issa Mccall Activity: no driving, follow weight bearing status and pelvic rest Diet: as tolerated Discharge Instructions: return to office in 1 week to remove bandage and remove luzma Patient Language: Malay Discharge Medications: New hydrocodone-acetaminophen 5-325 mg Tablet 1 tablet PO Q3H PRN (Reason: Breakthrough Pain Rated 4-6) Qty: 30 0RF Continued Inflectra 100 mg recon soln 100 mg IV MONTHLY Patient Comments: once a month No Action vit 10-iron fum-folic 65-1 mg tablet 1 tablet PO DAILY Date of admission: 08/11/24 05:50 Primary Care Provider: UNKNOWN,DOCTOR Admitting Provider: Issa Mccall Attending physician on admission: Issa Mccall Condition: Stable
--- OUTSIDE RECORDS SUMMARY | 2024-08-16 07:40 | XMS_ITS | Encounter Summary ---
Author Organization [facility] Address [address] [facility] [place] [address] Care Team Providers Care [employer] Volleyball Coach Name Role Phone Unavailable Primary Care Provider [...]
--- OUTSIDE RECORDS SUMMARY | 2024-08-16 07:40 | XMS_ITS | Encounter Summary ---
Author Organization [facility] Address [address] [facility] [place] [address] Care Team Providers Care Tab Machine Operator Name Role Phone Unavailable Primary [...] SONOGRAM - COMPLETE Issa Mccall MD [address] [facility] [address] [place] [address] Referral ID Status Reason Start Date Expiration Date Visits Re quested Visits Authorized [id number] Open 05/28/2024 05/28/2025 4 4 SITION MANAGER Reason for Visit * Reason Comments Ultrasound Encounter Details Date Type Department Care Team (Latest Contact Info) Description 07/28/2024 8:15 AM TRANSITION MANAGER - 07/28/2024 11:59 PM TRANSITION MANAGER Hospital Encounter [facility] Maternal & Care [facility] [place] [address] Gokul Lizarraga MD [address] [address] Discharge Disposition: Home or Self Care Social [...] SONOGRAM - COMPLETE Routine 07/28/2024 8:38 AM TRANSITION MANAGER Hx of section complicating (HCC) Maternal Crohn's disease affecting in second trimester (HCC) Second (HCC) BMI 33.0-33.9,adult Encounter for ultrasound to assess growth (HCC) 29 weeks gestation of ([facility]) documented in this encounter Results * SONOGRAM - COMPLETE (07/28/2024 8:38 AM TRANSITION MANAGER) Linked Results Indication ======== Left lower uterine [...] added if needed) Coding ====== Procedures ? 17012: US Uterus Limited ? 79396: Biophysical Profile W/O NST [employer] PACS Anatomical Region Laterality Modality Other 07/28/2024 8:38 AM TRANSITION MANAGER Issa Mccall MD [facility] ORDERABLES documented in this encounter Visit Diagnoses Diagnosis Hx of section complicating (HCC)- Primary Previous delivery, unspecified as to episode of care or not applicable Maternal Crohn's disease affecting in second trimester (HCC) Second (HCC) state, incidental Obesity affecting in third trimester, unspecified obesity type ([facility]) Encounter for screening ([facility]) 36 weeks gestation of ([facility]) state, incidental BMI 33.0-33.9,adult Body Mass Index 33.0-33.9, adult Encounter for ultrasound to assess growth ([facility]) 29 weeks gestation of ([facility]) state, incidental documented in this encounter
--- OUTSIDE RECORDS SUMMARY | 2024-08-16 07:40 | XMS_ITS | Encounter Summary ---
Author Organization [facility] Address [address] [facility] [place] [address] Care Team Providers Care Lead Data Architect Name Role Phone Unavailable Primary Care Provider [...] SONOGRAM - COMPLETE Issa Mccall MD [address] [facility] [address] [place] [address] Referral ID Status Reason Start Date Expiration Date Visits Re quested Visits Authorized [id number] Open 05/28/2024 05/28/2025 4 4 S DATA WRITER Reason for Visit * Reason Comments Ultrasound Encounter Details Date Type Department Care Team (Late st Contact Info) Description 07/14/2024 9:45 AM PARTS DATA WRITER - 07/14/2024 11:59 PM PARTS DATA WRITER Hospital Encounter [facility] Maternal & Care [address] [place] [address] Glendy Doss MD [address] [address] Discharge Disposition: Home or Self [...] SONOGRAM - COMPLETE Routine 07/14/2024 9:47 AM PARTS DATA WRITER Hx of section complicating (HCC) Maternal Crohn's disease affecting in second trimester (HCC) Second (HCC) BMI 33.0-33.9,adult Encounter for ultrasound to assess growth (HCC) 29 weeks gestation of ([facility]) documented in this encounter Results * SONOGRAM - COMPLETE (07/14/2024 9:47 AM PARTS DATA WRITER) Linked Results Indication ======== Left lower uterine [...] lb 3 ??oz EFW by ? Hadlock ([id number]) Head / Face / Neck Biometry: Cephalic [...] assessment is recommended Coding ====== Procedures ? 79112: US Preg Uterus Follow Up [facility] [employer] PACS Anatomical Region Laterality Modality Other 07/14/2024 9:47 AM PARTS DATA WRITER Issa Mccall MD [facility] ORDERABLES documented in this encounter Visit Diagnoses [...] Index 33.0-33.9, adult 29 weeks gestation of ([facility]) state, incidental documented in this encounter
--- OUTSIDE RECORDS SUMMARY | 2024-08-16 07:40 | XMS_ITS | Referral Summary ---
Author Organization [facility] Address [address] [facility] [place] [address] Care Team Providers Care Service Control Operator Name Role Phone Unavailable Primary Care Provider Unavailabl e Source Comments [facility],non-owned Affiliates and Associated Physician Practices is amultiple site organization consisting of ambulatory clinics and hospital sitesin [place], [place], [place] and [place]. This disclosure is being madepursuant to the Care Everywhere program and may not contain all information available regarding this patient. Last updated 18.[facility] Encounters Date Type Department Care Team Description 08/04/2024 Travel 08/04/2024 11:15 AM SHUTTLE FITTING SUPERVISOR - 08/04/2024 11:59 PM SHUTTLE FITTING SUPERVISOR Hospital Encounter [facility] Maternal & Care [address] [place] [address] Head, Nadine Miller MD Discharge Disposition: Home or Self Care 07/28/2024 8:15 AM SHUTTLE FITTING SUPERVISOR - 07/28/2024 11:59 PM SHUTTLE FITTING SUPERVISOR Hospital Encounter [facility] M[facility] Care [address] [place] [address] Gokul Lizarraga MD Discharge Disposition: Home or Self Care 07/21/2024 11:06 AM SHUTTLE FITTING SUPERVISOR - 07/21/2024 11:59 PM SHUTTLE FITTING SUPERVISOR Hospital Encounter [facility] Maternal & Care [address] [place] [address] Issa Mccall MD Stewart, Jeffrey D, MD Discharge Disposition: Home or Self Care 07/14/2024 9:45 AM SHUTTLE FITTING SUPERVISOR - 07/14/2024 11:59 PM SHUTTLE FITTING SUPERVISOR Hospital Encounter [facility] access [facility] Maternal & Care [address] [place] [address] Glendy Doss MD Discharge Disposition: Home or Self Care 06/02/2024 9:00 AM CDT - 06/02/2024 11:59 PM CDT Hospital Encounter [facility] Maternal & Care [address] [place] [address] Head, MD Mithcel Lira Corenthian J, MD Discharge Disposition: Home [...] Comments Blood Pressure 118/61 07/21/2024 11:57 AM SHUTTLE FITTING SUPERVISOR Pulse 82 07/21/2024 11:57 AM SHUTTLE FITTING SUPERVISOR Temperature - - Respiratory Rate - - [...] - COMPLETE Routine 08/04/2024 1 1:29 AM SHUTTLE FITTING SUPERVISOR Hx of section complicating (HCC) Maternal Crohn's disease affecting in second trimester (HCC) Second (HCC) BMI 33.0-33.9,adult Encounter for ultrasound to assess growth (HCC) 29 weeks gestation of (HCC) SONOGRAM - COMPLETE Routine 07/28/2024 8 :38 AM SHUTTLE FITTING SUPERVISOR Hx of section complicating (HCC) Maternal Crohn's disease affecting in second trimester (HCC) Second (HCC) BMI 33.0-33.9,adult Encounter for ultrasound to assess growth (HCC) 29 weeks gestation of (HCC) BIOPHYSICAL PROFILE W NST Routine 07/21/2024 11:09 AM SHUTTLE FITTING SUPERVISOR Hx of section complicating (HCC) Maternal Crohn's disease affecting in second trimester (HCC) Second (HCC) Obesity affecting in third trimester, unspecified obesity type (HCC) Encounter for screening (HCC) SONOGRAM - COMPLETE Routine 07/14/2024 9 :47 AM SHUTTLE FITTING SUPERVISOR Hx of section complicating (HCC) Maternal Crohn's [...] * SONOGRAM - COMPLETE (08/04/2024 11:29 AM SHUTTLE FITTING SUPERVISOR) Only the most recent of4 resultswithin the [...] profile is recommended Coding ====== Procedures ? 46643: US Uterus Limited ? 88319: Biophysical Profile W/O NST [employer] PACS Anatomical Region Laterality Modality Other 08/04/2024 11:2 9 AM SHUTTLE FITTING SUPERVISOR Issa Mccall MD [facility] ORDERABLES * BIOPHYSICAL PROFILE W NST (07/21/2024 11:09 AM SHUTTLE FITTING SUPERVISOR) Linked Results Indication ======== Left lower uterine [...] profile is recommended Coding ====== Procedures ? 58649: US Uterus Limited ? 52089: Biophysical Profile W/O NST [facility] FONU2 PACS Anatomical Region Laterality Modality Other 07/21/2024 11:0 9 AM SHUTTLE FITTING SUPERVISOR Issa Mccall MD [facility] ORDERABLES from Last 3 Months
--- OUTSIDE RECORDS SUMMARY | 2024-08-16 07:40 | XMS_ITS | Encounter Summary ---
Author Organization [facility] Address [address] [facility] [place] [address] Care Team Providers Care Rotary Saw Operator Name Role Phone Unavailable Primary Care [...] MD [address] [place] [address] Referral ID Status Reason Start Date Expiration Date Visits Re quested Visits Authorized [id number] Open 05/28/2024 05/28/2025 4 4 * (Routine) - Open Specialty Diagnoses / Procedures Referred By Contac t Referred To Contact Diagnoses Hx of section complicating (HCC) Maternal Crohn's disease affecting in second trimester (HCC) Second (HCC) BMI 33.0-33.9,adult Encounter for ultrasound to assess growth (HCC) 29 weeks gestation of (HCC) Procedures SONOGRAM - COMPLETE Issa Mccall MD [address] [place] [address] Referral ID Status Reason Start Date Expiration Date Visits Re quested Visits Authorized [id number] Open 05/28/2024 05/28/2025 4 4 Reason for Visit * Reason Comments Ultrasound Encounter Details Date Type Department Care Team (Late st Contact Info) Description 06/02/2024 9:00 AM CDT - 06/02/2024 11:59 PM CDT Hospital Encounter [facility] Maternal & Care [address] [place], [place] [id number] Head, Nadine Miller MD [address] [place] [address] GrullonYusef MD [address] [place] [address] Discharge Disposition: Home or Self [...] 33.0-33.9,adult Encounter for ultrasound to assess growth ([facility]) 29 weeks gestation of (HCC) documented in this encounter Results * SONOGRAM - COMPLETE (08/04/2024 11:29 AM TRESTLE BUILDER) Linked Results Indication ======== Class II Obesity [...] profile is recommended Coding ====== Procedures ? 22545: US Uterus Limited ? 06246: Biophysical Profile W/O NST [employer] Anatomical Region Laterality Modality Other 08/04/2024 11:2 9 AM TRESTLE BUILDER Issa Mccall MD [facility] ORDERABLES * SONOGRAM - COMPLETE (07/28/2024 8:38 AM TRESTLE BUILDER) Linked Results Indication ======== Left lower uterine [...] ? Date ?Details ? Gest. age ? NCIOLE LMP ?11/10/2023 ? Cycle: regular cycle ?37 [...] added if needed) Coding ====== Procedures ? 26785: US Uterus Limited ? 68727: Biophysical Profile W/O NST [facility] Interwise PACS Anatomical Region Laterality Modality Other 07/28/2024 8:38 AM TRESTLE BUILDER Issa Mccall MD [facility] ORDERABLES * SONOGRAM - COMPLETE (07/14/2024 9:47 AM TRESTLE BUILDER) Linked Results Indication ======== Left lower uterine [...] lb 3 ??oz EFW by ? Hadlock ([id number]) Head / Face / Neck Biometry: Cephalic [...] assessment is recommended Coding ====== Procedures ? 33184: US Preg Uterus Follow Up [facility] Interwise PACS Anatomical Region Laterality Modality Other 07/14/2024 9:47 AM TRESTLE BUILDER Issa Mccall MD [facility] ORDERABLES * SONOGRAM - COMPLETE (06/02/2024 9:18 AM CDT) Anatomical Region Laterality Modality Other 06/02/2024 9:18 AM CDT Narrative 06/02/2024 10:03 AM CDT ? [facility] ?Maternal and Care Center ?PHONE: ??FAX: Pat. Name: ?OTTO WALTER Pat. No: ?[id number] Study Date: ?? 06/02/2024 ??9:18am , Age: ? 2000, 23 Pregnancies: ?? 2, Para 1 Height: ? 63 in Weight: ? 201 lb LMP: ?11/10/2023 GA by LMP: ?29w2d GA by Base: ?? 29w2d ?? NICOLE: 08/16/2024 GA by US: ? 28w4d ?? NICOLE: 08/21/2024 GA Selected: ??29w2d (LMP) NICOLE: ?08/16/2024 Referring MD: Issa Mccall MD Automation Operator: ??Stefani Miranda RDMS CPT4: ? 27994 BMI: ?35.6 Hist/Ind: ? Left Lower Uterine Synechiae (not visualized 05/06/24) ?Complete Anatomy Screen ?No Genetics ? x1 ?Class II Obesity ?Maternal Crohn's disease ?Normal Echo MEASUREMENTS & AGE ? GROWTH EVALUATION Measurement ??GA ? Range ? Srce %for GA Ratios ----- ---- ------- BPD ??6.9 cm 27w6d (33f2b-49c5b) Hadl BPD 5% FL/BPD 0.80 (0.71 - 0.87) HC ??26.7 cm 29w0d (14e0l-15w0s) Hadl HC ??12% FL/AC ??0.23 (0.20 - 0.24) AC ??24.6 cm 28w6d (41o0i-74s8g) Hadl AC ??29% HC/AC ??1.09 (0.98 - 1.17) FL ?? 5.6 cm 29w2d (09r3m-72x1z) Hadl FL ??34% CI ? 0.71 (0.70 - 0.86) HL ?? 4.8 cm 28w3d (11s5x-87t8r) Oj HL ??36% GA for sonogram 28w4d (34r6z-33q0a) ?? Weight Estimate: based on (BPD,HC,AC,FL) Hadlock [...] <Electronic Signature> ??06/02/2024 10:03am Issa Mccall MD [facility] ORDERABLES documented in this encounter Visit [...]
--- OUTSIDE RECORDS SUMMARY | 2024-08-16 07:40 | XMS_ITS | Encounter Summary ---
Author Organization [facility] Address [address] [place] [address] Care Team Providers Care Communications Analyst Name Role Phone Unavailable Primary Care Provider Unavailabl e Encounter Details Date Type Department Care Team (Late st Contact Info) Description 05/07/2024 9:41 AM CDT Hospital Encounter [facility] Care [place] [address] [place] [address] Jazlyn Jules MD [address] [place] [address] Social History Tobacco Use Types Packs/Day Years [...] aortic and pulmonary valves. There was normal voidd-mb-afyu shunting across the ductus arteriosus in systole [...] or arrhythmias later in life such as Npzhg-Mtmefnsar-Hrudd syndrome. Total time spent was 45 minutes including reviewing diagnostic imaging and counseling regarding findings and limitations, and documentation. Sincerely, Jazlyn Jules MD documented in this encounter Plan of Treatment Not on file documented as of this encounter Visit Diagnoses Not on filedocumented in this encounter
--- OUTSIDE RECORDS SUMMARY | 2024-08-16 07:40 | XMS_ITS | Encounter Summary ---
Author Organization [facility] Address [address] [facility] [place] [address] Care Team Providers Care Certified Control Systems Technician Name Role Phone Unavailable Primary Care Provider [...] SONOGRAM - COMPLETE Issa Mccall MD [address] [address] [address] [place] [address] Referral ID Status Reason Start Date Expiration Date Visits Re quested Visits Authorized [id number] Open 05/28/2024 05/28/2025 4 4 GER THERAPY Reason for Visit * Reason Comments Biophysical Profile Ultrasound Encounter Details Date Type Department Care Team (Latest Contact Info) Description 08/04/2024 11:15 AM MANAGER THERAPY - 08/04/2024 11:59 PM MANAGER THERAPY Hospital En[facility] Maternal & Care [address] [place] [address] Head, Nadine Miller MD [address] [facility] [address] [place] [address] Discharge Disposition: Home or Self [...] SONOGRAM - COMPLETE Routine 08/04/2024 11:29 AM MANAGER THERAPY Hx of section complicating (HCC) Maternal Crohn's disease affecting in second trimester (HCC) Second (HCC) BMI 33.0-33.9,adult Encounter for ultrasound to assess growth (HCC) 29 weeks gestation of ([facility]) documented in this encounter Results * SONOGRAM - COMPLETE (08/04/2024 11:29 AM MANAGER THERAPY) Linked Results Indication ======== Class II Obesity [...] profile is recommended Coding ====== Procedures ? 07206: US Uterus Limited ? 78535: Biophysical Profile W/O NST [employer] PACS Anatomical Region Laterality Modality Other 08/04/2024 11:2 9 AM MANAGER THERAPY Issa Mccall MD [facility] ORDERABLES documented in this encounter Visit Diagnoses Diagnosis Hx of section complicating (HCC)- Primary Previous delivery, unspecified as to episode of care or not applicable Maternal Crohn's disease affecting in second trimester (HCC) Second (HCC) state, incidental Obesity affecting in third trimester, unspecified obesity type (HCC) Encounter for screening ([facility]) BMI 33.0-33.9,adult Body Mass Index 33.0-33.9, adult Encounter for ultrasound to assess growth (HCC) 29 weeks gestation of (HCC) state, incidental documented in this encounter
--- OUTSIDE RECORDS SUMMARY | 2024-08-16 07:40 | XMS_ITS | Encounter Summary ---
Author Organization [facility] Address [address] [place] [address] Care Team Providers Care Damper Fitter Name Role Phone Unavailable Primary Care Provider [...] MD [address] [place] [address] Referral ID Status Reason Start Date Expiration Date Visits Re quested Visits Authorized [id number] Open 07/18/2024 07/18/2025 1 1 CH BONDING MACHINE TENDER HELPER * (Routine) - Open Specialty Diagnoses / Procedures Referred By Contac t Referred To Contact Diagnoses Hx of section complicating (HCC) Maternal Crohn's disease affecting in second trimester (HCC) Second (HCC) Obesity affecting in third trimester, unspecified obesity type (HCC) Encounter for screening (HCC) Procedures BIOPHYSICAL PROFILE W Issa Adhikari MD [address] [place] [address] Referral ID Status Reason Start Date Expiration Date Visits Re quested Visits Authorized [id number] Open 07/18/2024 07/18/2025 1 1 CH BONDING MACHINE TENDER HELPER Reason for Visit * Reason Comments Ultrasound Non-stress Test Encounter Details Date Type Department Care Team (Latest Contact Info) Description 07/21/2024 11:06 AM STITCH BONDING MACHINE TENDER HELPER - 07/21/2024 11:59 PM STITCH BONDING MACHINE TENDER HELPER Hospital Encounter [facility] Maternal & Care [facility] [place] [address] Issa Mccall MD [address] [facility] [address] [place] [address] Bipin Corrales MD [address] [facility] [address] [place] [address] Discharge Disposition: Home or Self [...] Comments Blood Pressure 118/61 07/21/2024 11:57 AM STITCH BONDING MACHINE TENDER HELPER Pulse 82 07/21/2024 11:57 AM STITCH BONDING MACHINE TENDER HELPER Temperature - - Respiratory Rate - - [...] to patient and patient voiced understanding. Per pressing department supervisor BPP was 8/8 today. KYLE was WNL. See ultrasound report for details. Patient reports she is a scheduled repeat section on 08/11/24. Patient to schedule for weekly BPP/KYLE prior to leaving office today. Gay Peterson RN 07/21/2024 12:00 PM CH BONDING MACHINE TENDER HELPER documented in this encounter Plan of Treatment Not on file documented as of this encounter Procedures Procedure Name Priority Date/Time Associated Diagnosis Comments BIOPHYSICAL PROFILE W NST Routine 07/21/2024 11:09 AM STITCH BONDING MACHINE TENDER HELPER Hx of section complicating (HCC) Maternal Crohn's disease affecting in second trimester (HCC) Second (HCC) Obesity affecting in third trimester, unspecified obesity type (HCC) Encounter for screening (HCC) documented in this encounter Results * BIOPHYSICAL PROFILE W NST (07/21/2024 11:09 AM STITCH BONDING MACHINE TENDER HELPER) Linked Results Indication ======== Left lower uterine [...] profile is recommended Coding ====== Procedures ? 63851: US Uterus Limited ? 61636: Biophysical Profile W/O NST [employer] PACS Anatomical Region Laterality Modality Other 07/21/2024 11:0 9 AM STITCH BONDING MACHINE TENDER HELPER Issa Mccall MD [facility] ORDERABLES documented in this encounter Visit Diagnoses Diagnosis Hx of section complicating (HCC)- Primary Previous delivery, unspecified as to episode of care or not applicable Maternal Crohn's disease affecting in second trimester (HCC) Second (HCC) state, incidental Obesity affecting in third trimester, unspecified obesity type (HCC) Encounter for screening (HCC) documented in this encounter
--- OUTSIDE RECORDS SUMMARY | 2024-08-16 07:40 | XMS_ITS | Patient Health Summary ---
Author Organization [facility] Address [address] [place] [address] Care Team Providers Care Staking Engineer Name Role Phone Unavailable Primary Care Provider Unavailabl e Note from Formerly named [facility],non-owned Affiliates and Associated Physician Practices is amultiple site organization consisting of ambulatory clinics and hospital sitesin [place], [place], [place] and [place]. This disclosure is being madepursuant to the Care Everywhere program and may not contain all information available regarding this patient. Last updated 18.[facility] Allergies No known active allergies Medications * [...] Comments Blood Pressure 118/61 07/21/2024 11:57 AM BACK HAND Pulse 82 07/21/2024 11:57 AM BACK HAND Temperature - - Respiratory Rate - - [...] 33.0-33.9,adult, Encounter for ultrasound to assess growth ([facility]), 29 weeks gestation of ([facility]) * SONOGRAM - COMPLETE(Performed 07/28/2024) Performed for Hx of section complicating (HCC), Maternal Crohn's disease affecting in second trimester (HCC), Second (HCC), BMI 33.0-33.9,adult, Encounter for ultrasound to assess growth ([facility]), 29 weeks gestation of ([facility]) * BIOPHYSICAL PROFILE W NST(Performed 07/21/2024) Performed for Hx of section complicating (HCC), Maternal Crohn's disease affecting in second trimester (HCC), Second (HCC), Obesity affecting in thirdtrimester, unspecified obesity type ([facility]), Encounter for screening ([facility]) * SONOGRAM - COMPLETE(Performed 07/14/2024) Performed for Hx of section complicating (HCC), Maternal Crohn's disease affecting in second trimester (HCC), Second (HCC), BMI 33.0-33.9,adult, Encounter for ultrasound to assess growth ([facility]), 29 weeks gestation of ([facility]) * SONOGRAM - COMPLETE(Performed 06/02/2024) Performed [...] ultrasound, Encounter for follow-up ultrasound of anatomy ([facility]) * SONOGRAM - COMPLETE(Performed 04/08/2024) Performed for Abnormal ultrasound, History of delivery, Crohn's colitis, unspecifiedcomplication (HCC), Second (HCC) Results * SONOGRAM - COMPLETE (08/04/2024 11:29 AM BACK HAND) Only the most recent of6 resultswithin the [...] profile is recommended Coding ====== Procedures ? [id number]: US Uterus Limited ? 51806: Biophysical Profile W/O NST [facility] PACS Anatomical Region Laterality Modality Other 08/04/2024 11:2 9 AM BACK HAND Issa Mccall MD [facility] ORDERABLES * BIOPHYSICAL PROFILE W NST (07/21/2024 11:09 AM BACK HAND) Linked Results Indication ======== Left lower uterine [...] profile is recommended Coding ====== Procedures ? 69242: US Uterus Limited ? 42420: Biophysical Profile W/O NST [facility] PACS Anatomical Region Laterality Modality Other 07/21/2024 11:0 9 AM BACK HAND Issa Mccall MD [facility] ORDERABLES * ECHO COMPLETE CG (05/07/2024 11:10 AM CDT) MV E pk berto 16.05 cm/s [facility] CV F UJI PACS MV A pk berto 34.3 cm/s [facility] CV F UJI PACS Anatomical Region Laterality Modality Ultrasound 05/07/2024 9:52 AM CDT Narrative 05/07/2024 12:32 PM CDT Name: ? Pennie ?? [place] Patient ??Exam Info Gender: ? Female Accession #: ? [id number] Patient Status: ? O/P : ? 2000 Admit Date: ? 05/07/2024 Exam Date/Time: ? 05/07/2024 9:52 AM Site: ? [facility] Current Location: ? CARE EStaffOrdering Provider: ? Joanne Agosto Interpreting Physician: ? Jazlyn Jules MD Survey Operations Director: ? Len Veras [facility] - Study Info Procedure: ? ECHO COMPLETE [...] 05/07/2024 Exam Date/Time: 05/07/2024 9:52 AM Site: [facility] Current Location: CARE EStaffOrdering Provider: Joanne Agosto Interpreting Physician: Jazlyn Jules MD Survey Operations Director: Len Veras [facility] - Study Info Procedure: ECHO COMPLETE CG [...] MD on 05/07/2024 12:32 PM Joanne ROSAS [facility]
--- OUTSIDE RECORDS SUMMARY | 2024-08-16 07:40 | XMS_ITS | Encounter Summary ---
Author Organization [facility] Address [address] [place] [address] Care Team Providers Care Nailer Operator Name Role Phone Unavailable Primary Care Provider Unavailabl e Reason for Referral * Cardiac (Routine) - Open Specialty Diagnoses / Procedures Referred By Contac t Referred To Contact Cardiology Diagnoses Abnormal ultrasound Second (HCC) 21 weeks gestation of ([facility]) Procedures ECHO - CUPID OH DOPPLER ECHO PULSED WAVE &/CONT WAVE; CMPL [place] DOPPLER ECHO PULSE WAVE&/CONT WAVE; REPEAT Joanne Agosto MD [address] [address] [address] Referral ID Status Reason Start Date Expiration Date Visits Re quested Visits Authorized [id number] Open 04/08/2024 04/08/2025 1 1 Reason for Visit * Cardiac (Routine) - Open Specialty Diagnoses / Procedures Referred By Contac t Referred To Contact Cardiology Diagnoses Abnormal ultrasound Second (HCC) 21 weeks gestation of ([facility]) Procedures ECHO - CUPID OH DOPPLER ECHO PULSED WAVE &/CONT WAVE; CMPL [place] DOPPLER ECHO PULSE WAVE&/CONT WAVE; REPEAT Joanne Agosto MD [address] [place] [phone] [facility] [address] [place] [address] Referral ID Status Reason Start Date Expiration Date Visits Re quested Visits Authorized [id number] Open 04/08/2024 04/08/2025 1 1 Encounter Details Date Type Department Care Team (Latest Contact Info) Description 05/07/2024 9:41 AM CDT - 05/07/2024 11:59 PM CDT Hospital Encounter [facility] [place] [address] [place] [address] Joanne Agosto MD [address] [facility] [address] [address] Jazlyn Jules MD [address] [place] [address] Discharge Disposition: Home or Self Care [...] 12:32 PM CDT Name: ? Pennie ?? [place] Patient ??Exam Info Gender: ? Female Accession #: ? [id number] Patient Status: ? O/P : ? 2000 Admit Date: ? 05/07/2024 Exam Date/Time: ? 05/07/2024 9:52 AM Site: ? [facility] Current Location: ? CARE EStaffOrdering Provider: ? Joanne Agosto Interpreting Physician: ? Jazlyn Jules MD Kidney Puller: ? Len Veras [facility] Study Info Procedure: ? ECHO COMPLETE [...] 05/07/2024 Exam Date/Time: 05/07/2024 9:52 AM Site: [facility] Current Location: CARE EStaffOrdering Provider: Joanne Agosto Interpreting Physician: Jazlyn Jules MD Kidney Puller: Len Veras [facility] Study Info Procedure: ECHO COMPLETE CG [...]
--- OUTSIDE RECORDS SUMMARY | 2024-08-16 07:40 | XMS_ITS | Clinical Summary ---
Author Organization [facility] Address [address] [facility] [place] [address] Care Team Providers Care Screw Machine Setter Name Role Phone Unavailable Primary Care Provider Unavailabl e Source Comments [facility],non-owned Affiliates and Associated Physician Practices is amultiple site organization consisting of ambulatory clinics and hospital sitesin [place], [place], [place] and [place]. This disclosure is being madepursuant to the Care Everywhere program and may not contain all information available regarding this patient. Last updated 18.[facility] Allergies No known active allergies Medications * [...] Department Care Team Description 08/04/2024 11:15 AM CATTLE KILLER - 08/04/2024 11:59 PM CATTLE KILLER Hospital Encounter [facility] Maternal & Care [address] [place], [place] [id number] Head, Nadine Miller MD Discharge Disposition: Home or Self Care 08/04/2024 Travel 07/28/2024 8:15 AM CATTLE KILLER - 07/28/2024 11:59 PM CATTLE KILLER Hospital Encounter [facility] Maternal & Care [address] [place] [address] Gokul Lizarraga MD Discharge Disposition: Home or Self Care 07/21/2024 11:06 AM CATTLE KILLER - 07/21/2024 11:59 PM CATTLE KILLER Hospital Encounter [facility] Maternal & Care [address] [place] [address] Issa Mccall MD Stewart, Jeffrey D, MD Discharge Disposition: Home or Self Care 07/14/2024 9:45 AM CATTLE KILLER - 07/14/2024 11:59 PM CATTLE KILLER Hospital Encounter [facility] Maternal & Care [address] [place], [place] [phone] Glendy Doss MD Discharge Disposition: Home or Self Care 06/02/2024 9:00 AM CDT - 06/02/2024 11:59 PM CDT Hospital Encounter [facility] Maternal & Care [address] [place] [address] Head, MD Thomas LiraerYusef MD Discharge Disposition: [...] Comments Blood Pressure 118/61 07/21/2024 11:57 AM CATTLE KILLER Pulse 82 07/21/2024 11:57 AM CATTLE KILLER Temperature - - Respiratory Rate - - [...] - COMPLETE Routine 08/04/2024 1 1:29 AM CATTLE KILLER Hx of section complicating (HCC) Maternal Crohn's disease affecting in second trimester (HCC) Second (HCC) BMI 33.0-33.9,adult Encounter for ultrasound to assess growth (HCC) 29 weeks gestation of (HCC) SONOGRAM - COMPLETE Routine 07/28/2024 8 :38 AM CATTLE KILLER Hx of section complicating (HCC) Maternal Crohn's disease affecting in second trimester (HCC) Second (HCC) BMI 33.0-33.9,adult Encounter for ultrasound to assess growth (HCC) 29 weeks gestation of (HCC) BIOPHYSICAL PROFILE W NST Routine 07/21/2024 11:09 AM CATTLE KILLER Hx of section complicating (HCC) Maternal Crohn's disease affecting in second trimester (HCC) Second (HCC) Obesity affecting in third trimester, unspecified obesity type (HCC) Encounter for screening (HCC) SONOGRAM - COMPLETE Routine 07/14/2024 9:47 AM CATTLE KILLER Hx of section complicating (HCC) Maternal Crohn's [...] * SONOGRAM - COMPLETE (08/04/2024 11:29 AM CATTLE KILLER) Only the most recent of4 resultswithin the [...] profile is recommended Coding ====== Procedures ? [id number]: US Uterus Limited ? 29300: Biophysical Profile W/O NST [employer] PACS Anatomical Region Laterality Modality Other 08/04/2024 11:2 9 AM CATTLE KILLER Issa Mccall MD [facility] ORDERABLES * BIOPHYSICAL PROFILE W NST (07/21/2024 11:09 AM CATTLE KILLER) Linked Results Indication ======== Left lower uterine [...] profile is recommended Coding ====== Procedures ? 99368: US Uterus Limited ? 87514: Biophysical Profile W/O NST [employer] PACS Anatomical Region Laterality Modality Other 07/21/2024 11:0 9 AM CATTLE KILLER Issa Mccall MD [facility] ORDERABLES from Last 3 Months
--- OUTSIDE RECORDS SUMMARY | 2024-08-16 07:41 | XMS_ITS | Encounter Summary ---
Author Organization [facility] Address [address] [facility] [place] [address] Care Team Providers Care Assistant Family Teacher Name Role Phone Unavailable Primary Care Provider [...]
--- OUTSIDE RECORDS SUMMARY | 2024-08-16 07:41 | XMS_ITS | Encounter Summary ---
Author Organization [facility] Address [address] [facility] [place] [address] Care Team Providers Care Defensive Secondary Coach Name Role Phone Unavailable Primary Care Provider Unavailabl e Encounter Details Date Type Department Care Team (Late st Contact Info) Description 04/21/2024 Orders Only [facility] Maternal & Care [address] [place] [id number] Gay Peterson, RN Social History Tobacco [...]
--- OUTSIDE RECORDS SUMMARY | 2024-08-16 07:41 | XMS_ITS | Encounter Summary ---
Author Organization [facility] Address [address] [place] [address] Care Team Providers Care Lye Machine Operator Name Role Phone Unavailable Primary Care Provider Unavailabl e Reason for Referral * (Routine) - Open Specialty Diagnoses / Procedures Referred By Contac t Referred To Contact Diagnoses Abnormal ultrasound History of delivery Crohn's colitis, without complications (HCC) Second (HCC) Procedures SONOGRAM - COMPLETE Issa Mccall MD [address] [facility] [address] [place] [address] Referral ID Status Reason Start Date Expiration Date Visits Re quested Visits Authorized [id number] Open 04/01/2024 04/01/2025 1 1 Encounter Details Date Type Department Care Team (Latest Contact Info) Description 04/08/2024 10:30 AM CDT - 04/08/2024 10:31 AM CDT Hospital Encounter [facility] Maternal & Care [address] [place], [place] [phone] Joanne Agosto MD [address] [facility] 4[place] [address] Carissa Loja MD [address] [facility] [address] [place] [address] Discharge Disposition: Home or Self [...] CDT Narrative 04/08/2024 12:56 PM CDT ? [facility] ?Maternal and Care Center ?PHONE: ??FAX: Pat. Name: ?OTTO WALTER No: ?[id number] Study Date: ?? 04/08/2024 ??10:37am , Age: ? 2000, 23 Pregnancies: ?? 2, Para 1 Height: ? 63 in Weight: ? 201 lb LMP: ?11/10/2023 GA by LMP: ?21w3d GA by US: ? 20w5d ?? NICOLE: 08/21/2024 GA Selected: ??21w3d (LMP) NICOLE: ?08/16/2024 Referring MD: Issa Mccall MD Certified Surgical Assistant: ??Beena Fitzgerald RDMS CPT4: ? 24079 BMI: ?35.6 Hist/Ind: ? Left Lower Uterine Band Seen on Outside Scan ?No Genetics ? x1 ?Class II Obesity ?Maternal Crohn's disease MEASUREMENTS & AGE ? GROWTH EVALUATION Measurement ??GA ? Range ? Srce %for GA Ratios ----- ---- ------- BPD ??4.7 cm 20w2d (16h0s-94l3c) Hadl BPD 10% FL/BPD 0.73 HC ??18.0 cm 20w3d (05x9a-04l8k) Hadl HC ??7% FL/AC ??0.21 AC ??16.5 cm 21w4d (59z2s-36a1g) Hadl AC ??47% HC/AC ??1.09 (1.05 - 1.24) FL ?? 3.4 cm 20w6d (79z0k-32s5w) Hadl FL ??21% CI ? 0.73 (0.70 - 0.86) HL ?? 3.2 cm 20w4d (53e7m-31p9j) Oj HL ??37% GA for sonogram 20w5d (81p9c-31m5o) ?? Weight Estimate: based on (BPD,HC,AC,FL) Avg [...] Growth scans are indicated. Please see separate [facility] visit note. Thank you for allowing us the opportunity to care for your patient. ??nancy Agosto MD <Electronic Signature> ??04/08/2024 12:56pm Issa Mccall MD [facility] ORDERABLES documented in this encounter Visit Diagnoses Diagnosis 21 weeks gestation of ([facility])- Primary state, incidental Abnormal ultrasound Abnormal findings on screening History of delivery Other postprocedural status Crohn's colitis, unspecified complication ([facility]) Second ([facility]) state, incidental Encounter for anatomic survey ([facility]) Encounter for anatomic survey BMI 33.0-33.9,adult Body Mass Index 33.0-33.9, adult documented in this encounter
--- OUTSIDE RECORDS SUMMARY | 2024-08-16 07:41 | XMS_ITS | Encounter Summary ---
Author Organization [facility] Address [address] [facility] [place] [address] Care Team Providers Care Medical Director/Head Team Physician Name Role Phone Unavailable Primary Care Provider Unavailabl e Reason for Referral * Cardiac (Routine) - Open Specialty Diagnoses / Procedures Referred By Contac t Referred To Contact Cardiology Diagnoses Abnormal ultrasound Second (HCC) 21 weeks gestation of ([facility]) Procedures ECHO - CUPID OH DOPPLER ECHO PULSED WAVE &/CONT WAVE; CMPL [place] DOPPLER ECHO PULSE WAVE&/CONT WAVE; REPEAT Joanne Agosto MD [address] [address] [facility] Serv [address] [place] [address] Referral ID Status Reason Start Date Expiration Date Visits Re quested Visits Authorized [id number] Open 04/08/2024 04/08/2025 1 1 * Consultation (Routine) - Open Specialty Diagnoses / Procedures Referred By Contac t Referred To Contact Diagnoses Abnormal ultrasound History of delivery Crohn's colitis, without complications (HCC) Second ([facility]) Issa Mccall MD [address] [address] [address] [place] [address] Referral ID Status Reason Start Date Expiration Date V isits Requested Visits Authorized [id number] Open Specialty Services Required 04/01/2024 04/01/2025 3 3 * (Routine) - Open Specialty Diagnoses / Procedures Referred By Carolina t Referred To Contact Diagnoses Abnormal ultrasound History of delivery Crohn's colitis, without complications (HCC) Second (HCC) Procedures SONOGRAM - COMPLETE Issa Mccall MD [address] [facility] [address] [place] [address] Referral ID Status Reason Start Date Expiration Date Visits Re quested Visits Authorized [id number] Open 04/01/2024 04/01/2025 1 1 Reason for Visit * Reason Comments Ultrasound Maternal Medicine Consultation Encounter Details Date Type Department Care Team (Latest Contact Info) Description 04/08/2024 10:32 AM CDT - 04/08/2024 11:59 PM CDT Hospital Encounter [facility] Maternal & Care [address] [place] [address] Carissa Loja MD [address] [facility] [address] [place] [address] Joanne Agosto MD [address] [facility] 4TH [place] [address] Discharge Disposition: Home or Self [...] Crohns in 2020, [facility] [place]. Patient is getting infusions once monthly, influectra [...] from the original note were not included. [facility] [address] [place] [address] Joanne Agosto MD [facility] 04/08/2024 Site of service: [facility] RE: Pennie Walter Date of : 2000 Referring Physician: Issa Mccall MD Dear Dr. Mccall: Thank you very much for referring Pennie Walter for evaluation of her high risk . I saw her on 04/08/2024 at [facility]. She was accompanied by her mother. Background. Ms. Wlater is a 23 year old who is 21 weeks 3 days. She is sent for evaluation of an abnormal finding band: on outside US. She has Crohn's disease, which has been actively managed with Remicade infusions under the care of [facility]. She reports good movement. No [...] Stage, intolerance to labor, delivered, current hospitalization ([facility]) Comments: Induction of labor per patient with AROM, labored 12 hours but patient only dilatedto 1 cm due to intolerance had to be delivery. Location: [facility] Crohn's disease was well managed [...] All vaccines should be discussed with the rib knitter, in the context of maternal biological use. [...] Department of Obstetrics, Genecology, and Women's Health [facility] This was a 30 minute in [...] Info Gender: ? Female Accession #: ? [id number] Patient Status: ? O/P : ? 2000 Admit Date: ? 05/07/2024 Exam Date/Time: ? 05/07/2024 9:52 AM Site: ? [facility] Current Location: ? CARE EStaffOrdering Provider: ? Joanne Agosto Interpreting Physician: ? Jazlyn Jules MD Garment Parts Cutter Machine: ? Len Veras [facility] - Study Info Procedure: ? ECHO [...] 05/07/2024 Exam Date/Time: 05/07/2024 9:52 AM Site: [facility] Current Location: CARE EStaffOrdering Provider: Joanne Agosto Interpreting Physician: Jazlyn Jules MD [employer]ment [employer] Cutter Machine: Len Veras RDCS - FE Study Info [...] CDT Narrative 04/08/2024 12:56 PM CDT ? [facility] ?Maternal and Care Center ?PHONE: ??FAX: Pat. Name: ?PENNIE WALTER Leda. No: ?[id number] Study Date: ?? 04/08/2024 ??10:37am , Age: ? 2000, 23 Pregnancies: ?? 2, Para 1 Height: ? 63 in Weight: ? 201 lb LMP: ?11/10/2023 GA by LMP: ?21w3d GA by US: ? 20w5d ?? NICOLE: 08/21/2024 GA Selected: ??21w3d (LMP) NICOLE: ?08/16/2024 Referring MD: Issa Mccall MD Garment Parts Cutter Machine: ??Beena Fitzgerald RDMS CPT4: ? 78922 BMI: ?35.6 Hist/Ind: ? Left Lower Uterine Band Seen on Outside Scan ?No Genetics ? x1 ?Class II Obesity ?Maternal Crohn's disease MEASUREMENTS & AGE ? GROWTH EVALUATION Measurement ??GA ? Range ? Srce %for GA Ratios ----- ---- ------- BPD ??4.7 cm 20w2d (50p6n-96f7u) Hadl BPD 10% FL/BPD 0.73 HC ??18.0 cm 20w3d (98h2x-72i4q) Hadl HC ??7% FL/AC ??0.21 AC ??16.5 cm 21w4d (31x4m-18s1z) Hadl AC ??47% HC/AC ??1.09 (1.05 - 1.24) FL ?? 3.4 cm 20w6d (27b8t-66q0m) Hadl FL ??21% CI ? 0.73 (0.70 - 0.86) HL ?? 3.2 cm 20w4d (03b7e-49r4z) Oj HL ??37% GA for sonogram 20w5d (51n2g-51m3h) ?? Weight Estimate: based on (BPD,HC,AC,FL) Avg [...] Growth scans are indicated. Please see separate [facility] visit note. Thank you for allowing us the opportunity to care for your patient. ??jm Joanne Agosto MD <Electronic Signature> ??04/08/2024 12:56pm Issa Mccall MD [facility] ORDERABLES documented in this encounter Visit Diagnoses Diagnosis 21 weeks gestation of (HCC)- Primary state, incidental Abnormal ultrasound Abnormal findings on screening History of delivery Other postprocedural status Crohn's colitis, unspecified complication (HCC) Second (HCC) state, incidental Encounter for anatomic survey ([facility]) Encounter for anatomic survey BMI 33.0-33.9,adult Body Mass Index 33.0-33.9, adult Abnormal ultrasound- Primary Abnormal findings on screening History of delivery Other postprocedural status Crohn's colitis, unspecified complication (HCC) Second (HCC) state, incidental 21 weeks gestation of ([facility]) state, incidental Hx of section complicating (HCC) Previous delivery, unspecified as to episode of care or not applicable Maternal Crohn's disease affecting in second trimester ([facility]) Medication exposure during : Infliximab Supervision of other high-risk Abnormal ultrasound Abnormal findings on screening Second (HCC) state, incidental 21 weeks gestation of ([facility]) state, incidental documented in this encounter
--- OUTSIDE RECORDS SUMMARY | 2024-08-16 07:41 | XMS_ITS | Encounter Summary ---
Author Organization [facility] Address [address] [place] [address] Care Team Providers Care Auto Design Checker Name Role Phone Unavailable Primary Care Provider Unavailabl e Reason for Visit * Reason Onset Date Comments Future Appointment 04/11/2024 Encounter Details Date Type Department Care Team (Late st Contact Info) Description 04/11/2024 Telephone [facility] [address] [place] [address] Malia Ruiz Future Appointment Social History Tobacco [...]
--- OUTSIDE RECORDS SUMMARY | 2024-08-16 07:41 | XMS_ITS | Encounter Summary ---
Author Organization [facility] Address [address] [facility] [place] [address] Care Team Providers Care Skidder Operator Name Role Phone Unavailable Primary Care [...] MD [address] [place] [address] Referral ID Status Reason Start Date Expiration Date Visits Re quested Visits Authorized [id number] Open 04/21/2024 04/21/2025 1 1 * (Routine) - Open Specialty Diagnoses / Procedures Referred By Contac t Referred To Contact Diagnoses Hx of section complicating (HCC) Maternal Crohn's disease affecting in second trimester (HCC) 25 weeks gestation of (HCC) Second (HCC) Abnormal ultrasound Encounter for follow-up ultrasound of anatomy (HCC) Procedures SONOGRAM - COMPLETE Issa Mccall MD [address] [place] [address] Referral ID Status Reason Start Date Expiration Date Visits Re quested Visits Authorized [id number] Open 04/21/2024 04/21/2025 1 1 Reason for Visit * Reason Comments Ultrasound Encounter Details Date Type Department Care Team (Latest Contact Info) Description 05/06/2024 9:45 AM CDT - 05/06/2024 11:59 PM CDT Hospital Encounter [facility] Maternal & Care [address] [place], [place] [id number] Bipin Corrales MD [address] [facility] [address] [place] [address] Discharge Disposition: Home or Self [...] CDT Narrative 05/06/2024 12:39 PM CDT ? [facility] ?Maternal and Care Center ?PHONE: ??FAX: Pat. Name: ?OTTO WALTER Pat. No: ?[id number] Study Date: ?? 05/06/2024 ??9:50am , Age: ? 2000, 23 Pregnancies: ?? 2, Para 1 Height: ? 63 in Weight: ? 201 lb LMP: ?11/10/2023 GA by LMP: ?25w3d GA by Base: ?? 25w3d ?? NICOLE: 08/16/2024 GA by US: ? 24w3d ?? NICOLE: 08/23/2024 GA Selected: ??25w3d (LMP) NICOLE: ?08/16/2024 Referring MD: Issa Mccall MD Operating Manager: ??Beena Fitzgerald RDMS CPT4: ? 41542 BMI: ?35.6 Hist/Ind: ? Left Lower Uterine Synechie ?Incomplete Anatomy Screen ?No Genetics ? x1 ?Class II Obesity ?Maternal Crohn's disease MEASUREMENTS & AGE ? GROWTH EVALUATION Measurement ??GA ? Range ? Srce %for GA Ratios ----- ---- ------- BPD ??5.9 cm 24w0d (22f0s-62y4n) Hadl BPD 5% FL/BPD 0.78 (0.71 - 0.87) HC ??22.0 cm 24w0d (74h2v-35t0u) Hadl HC ??2% FL/AC ??0.23 (0.20 - 0.24) AC ??20.2 cm 24w5d (11j3o-24y2m) Hadl AC ??21% HC/AC ??1.09 (1.01 - 1.20) FL ?? 4.6 cm 25w1d (78v8i-67o7z) Hadl FL ??29% CI ? 0.74 (0.70 - 0.86) HL ?? 4.4 cm 26w0d (61f3h-33a7b) Oj HL ??60% Cere 2.8 cm 24w4d (07b0y-02j8n) Hill Cere31% GA for sonogram 24w3d (25s5e-83t9k) ?? Weight Estimate: based on (BPD,HC,AC,FL) Avg [...] today. ??Echo is scheduled for [facility]/07 at [facility] RECOMMEND: Follow-up U/S @ 32 weeks for growth & as otherwise clinically indicated Thank you for allowing us the opportunity to care for your patient. ?? Bipin Corrales MD <Electronic Signature> ??05/06/2024 12:39pm Issa Mccall MD [facility] ORDERABLES documented in this encounter [...]
--- OUTSIDE RECORDS SUMMARY | 2024-08-16 07:42 | XMS_ITS | Encounter Summary ---
Author Organization [facility] Address [address] [place] [address] Care Team Providers Care Spiritual Care Coordinator Name Role Phone Ciera Saucedo Primary Care Provider [phone] Encounter Details Date Type Department Care Team [...] st Contact Info) Description 09/22/2024 8:00 AM WATER REGULATOR AND VALVE REPAIRER Office Visit [facility] [place] [address] [facility] [address] [place] [address] Shreya Platt MD [address] [facility] [address] [place] [address] documented as of this encounter Visit Diagnoses Not on filedocumented in this encounter Care Teams Spiritual Care Coordinator Relationship Specialty Start Date End Date Ciera Saucedo FNP [address] [place] [address] PCP - General Nurse Practitioner Family 05/24/21 documented as of this encounter
--- OUTSIDE RECORDS SUMMARY | 2024-08-16 07:42 | XMS_ITS | Encounter Summary ---
Author Organization [facility] Address [address] [place] [address] Care Team Providers Care Ancillary Services Manager Therapy Name Role Phone Ciera Saucedo BARBI Primary Care Provider [phone] Reason for Visit * Reason Comments Follow Up Crohn's Disease Encounter Details Date Type Department Care Team (Late st Contact Info) Description 01/14/2024 8:00 AM CDT Office Visit [facility]astro[facility] [address] [facility] [address] [place] [address] Kendra Brody, DARNELL [address] [facility] 100 [place] [address] Crohn's disease of small intestine [...] Brody ANP - 01/14/2024 8:00 AM CDT [facility] Inflammatory Bowel Disease Clinic DARNELL Manzano [...] biopsy. EGD showed mild gastritis no hpylori. Qohtvexh77rz daily. 10/2021 - started infliximab 12/2021 - ifx level 23, no ab. CRP 49 01/2022 - CTE normal. 04/2023 - CTE normal Sister has crohn's and I see her as well. She takes entyvio. (failed remicade and stelara) I have reviewed outside records today as part of this visit from [facility] Past Medical History: I updated the electronic [...] Connections: Feeling Socially Integrated (10/28/2023) Received from [facility] Physicians OASIS D0700: Social Isolation Frequency [...] medical record. .DARNELL Manzano Division of Gastroenterology [facility] Inflammatory Bowel Disease [phone] CC: Ciera Saucedo FNP Orders Placed This [...] entrusting your healthcare to the physicians at [facility] Inflammatory Bowel Disease and Gastroenterology Following [...] making our practice meet the highest expectations! [facility] Inflammatory Bowel Disease and Gastroenterology Center If you have IBD, this is the preferred office to contact. [address] [place] [address] Other important numbers to add to our contact info: After hours physician exchange: [phone] Perales: To schedule CT or MRI: Call [phone] To schedule EGD/Colon/Flex [phone] Drs[address] Lopez/Lc: To schedule CT or MRI: Call [phone] To schedule an EGD/Colon/Flex Sig: Call [phone] IMPORTANT: The following information and instructions are [...] st Contact Info) Description 09/22/2024 8:00 AM DOUBLE CORNER CUTTER Office Visit [facility] [place] [address] [place] [address] Shreya Platt MD [address] [place] [address] [place] [address] documented as of this encounter Procedures Procedure [...] CALPROTECTIN, FECAL 12 mcg/g [facility]ley padron [facility], Comment: ?Reference Range: ?<50 ? Normal ?50-120 ??Borderline ?>120 ?Elevated Calprotectin in Crohn's disease and ulcerative colitis can be five to several thousand times above the reference population (50 mcg/g or less). Levels are usually 50 mcg/g or less in healthy patients and with irritable bowel syndrome. Repeat testing in 4-6 weeks is suggested for borderline values. Test Performed at: [facility], [address] [place], [place] [address] [place], [place] ??[address] Aaliyah Esquivel MD,PhD,FATOU 01/15/2024 10:1 3 AM CDT 01/15/2024 10:15 AM CDT Kendra PATRICK BODY FLUIDS AND STOOLS [facility] [phone] [facility], [address] [place] [address] * INFLIXIMAB LEVEL PANEL (01/15/2024 10:13 AM CDT) INFLIXIMAB LEVEL, IBD >50.0 mcg/mL [facility], INFLIXIMAB AB, IBD <10 <10 AU Q [facility], INFLIXIMAB INTERPRETATION SEE NOTE [facility], Comment: The infliximab and infliximab anti-drug antibody [...] clinical equivalence studies, the FDA and the [place] [employer] advocate applying infliximab clinical guidance to the use of its biosimilars. The [place] [employer] recommends optimal infliximab trough concentration [...] treating healthcare professional should refer to the corporate relations director's approved labeling for prescribing, warnings, side effects and other important information. INFLIXIMAB COMMENT SEE NOTE Q [facility]/ [facility], Comment: This test was developed and its analytical performance characteristics have been determined by [facility]. It has not been cleared or approved by FDA. This assay has been validated pursuant to the CLIA regulations and is used for clinical purposes. For additional information, please refer to https://education.[employer]/faq/ZXF882 (This link is being provided for informational/educational purposes only.) Test Performed at: [facility], [address] [place], [place] ??[address] Aaliyah Esquivel MD,PhD,FATOU Blood 01/15/2024 10:1 3 AM CDT 01/15/2024 10:15 AM CDT Kendra Brody ANP CHEMISTRY ORDER JULIAN [facility] [phone] [facility], [address] [place] [address] * VITAMIN D 25 HYDROXY (01/15/2024 10:13 AM CDT) VITAMIN D, 25 OH, TOTAL 32 30 - 100 ng/mL [facility] Comment: Vitamin D Status ? 25-OH Vitamin D: Deficiency: ?<20 ng/mL Insufficiency: ? 20 - 29 ng/mL Optimal: ? > or = 30 ng/mL For 25-OH Vitamin D testing on patients on D2-supplementation and patients for whom quantitation of D2 and D3 fractions is required, the [facility](TM) 25-OH VIT D, (D2,D3), LC/MS/MS is recommended: order code [id number] (patients >2yrs). See Note 1 Note 1 For additional information, please refer to http://education.Donuts/faq/NDG823 (This link is being provided for informational/ educational purposes only.) Test Performed at: [facility] ??[address] Marce Pittman MD Blood 01/15/2024 10:1 3 AM CDT 01/15/2024 10:15 AM CDT Kendra Brody ANP CHEMISTRY ORDER JULIAN Performing Organization Address City/[facility]/ZIP Co de Phone Number [facility] [phone] [facility] [employer] [address] * FERRITIN (01/15/2024 10:13 AM CDT) FERRITIN 42 16 - 154 ng/mL [facility] Comment: Test Performed at: [facility] ??[address] Marce Pittman MD Blood 01/15/2024 10:1 3 AM CDT 01/15/2024 10:15 AM CDT Kendra Brody ANP CHEMISTRY ORDER JULIAN [facility] [phone] [facility] [employer] [address] * IRON, TIBC, AND PERCENT SATURATION (01/15/2024 10:13 AM CDT) IRON 90 40 - 190 mcg/dL [facility] TIBC 345 250 - 450 mcg/dL (calc) [facility] IRON % SATURATION 26 16 - 45 % (calc) [facility] Comment: Test Performed at: [facility] [address] [place] [address] ??[address] Marce Pittman MD Blood 01/15/2024 10:1 3 AM CDT 01/15/2024 10:15 AM CDT Kendra Brody ANP CHEMISTRY ORDER JULIAN Performing Organization Address City/[facility] Co de Phone Number [facility] [phone] [facility] [employer] [address] * C-REACTIVE PROTEIN (01/15/2024 10:13 AM CDT) CRP 4.7 <8.0 mg/L [facility] [facility] Comment: Test Performed at: [facility] ??[address] Marce Pittman MD Blood 01/15/2024 10:1 3 AM CDT 01/15/2024 10:15 AM CDT Kendra Brody ANP CHEMISTRY ORDER JULIAN Performing Organization Address [facility] [place] [facility] Co de Phone Number [facility] [phone] [facility] [employer] [address] * COMPREHENSIVE METABOLIC PANEL (01/15/2024 10:13 AM CDT) GLUCOSE 73 65 - 99 mg/dL [facility] Comment: ? Fasting reference interval BUN 8 7 - 25 mg/dL [facility] CREATININE 0.56 0.50 - 0.96 mg/dL [facility] GFR 130 > OR = 60 mL/min/1. 73m2 [facility] BUN/CREAT RATIO SEE NOTE: (calc) [facility] Comment: ?? Not Reported: BUN and Creatinine are within ?? reference range. ? SODIUM 136 135 - 146 mmol/L [facility] POTASSIUM 4.4 3.5 - 5.3 mmol/L [facility] [place] CHLORIDE 103 98 - 110 mmol/L [facility] [employer] [facility] Ric[place] CO2 26 20 - 32 mmol/L [facility] [place] CALCIUM 9.4 8.6 - 10.2 mg/dL [facility] [place] TOTAL PROTEIN 7.2 6.1 - 8.1 g/dL [facility] ALBUMIN 4.3 3.6 - 5.1 g/dL [facility] GLOBULIN 2.9 1.9 - 3.7 g/dL (calc) [facility] Ricardo ALBUMIN/GLOBULIN RATIO 1.5 1.0 - 2.5 (calc) [facility] [place] BILIRUBIN TOTAL 0.6 0.2 - 1.2 mg/dL [facility] ALKALINE PHOSPHATASE 53 31 - 125 U/L [facility] AST 12 10 - 30 U/L [facility] ALT 20 6 - 29 U/L [facility] Comment: Test Performed at: [facility] [employer] [address] [place], [place] ??[address] Marce Pittman Blood 01/15/2024 10:1 3 AM CDT 01/15/2024 10:15 AM CDT Kendra Brody ANP CHEMISTRY ORDER JULIAN [facility] [phone] [facility] [employer] [place] [address] [place] [address] * CBC WITH DIFFERENTIAL (01/15/2024 10:13 AM CDT) WBC 5.3 3.8 - 10.8 Thousand/u L [facility] RBC 4.25 3.80 - 5.10 Million/uL [facility] HEMOGLOBIN 12.4 11.7 - 15.5 g/dL [facility] nohemi Silva HEMATOCRIT 38.0 35.0 - 45.0 % [facility] Silva MCV 89.4 80.0 - 100.0 [...] Diagnostics-S t Ricardo Comment: Test Performed at: [facility] [place] [address] [place] ??[address] Marce Pittman Blood 01/15/2024 10:1 3 AM CDT 01/15/2024 10:15 AM CDT Kendra Brody ANP HEMATOLOGY [place] MINDY [facility] [phone] [facility] [employer] [place] [address] [place] [address] documented in this encounter Visit Diagnoses Diagnosis Crohn's disease of small intestine with complication- Primary Regional enteritis of small intestine Vitamin D deficiency Unspecified vitamin D deficiency Fatigue, unspecified type Iron deficiency anemia, unspecified iron deficiency anemia type documented in this encounter Care Teams Ancillary Services Manager Therapy Relationship Specialty Start Date End Date Ciera Saucedo FNP [address] [place] [address] PCP - General Nurse Practitioner Family 05/24/21 documented as of this encounter
--- OUTSIDE RECORDS SUMMARY | 2024-08-16 07:42 | XMS_ITS | Encounter Summary ---
Author Organization [facility] Address [address] [place] [address] Care Team Providers Care Missile Inspector Name Role Phone Ciera Saucedo Primary Care Provider [phone] Encounter Details Date Type Department Care Team [...] st Contact Info) Description 09/22/2024 8:00 AM DIGITAL INTERN Office Visit [facility] [place] [address] [facility] [address] [place] [address] Shreya Platt MD [address] [facility] [address] [place] [address] documented as of this encounter Visit Diagnoses Not on filedocumented in this encounter Care Teams Missile Inspector Relationship Specialty Start Date End Date Ciera Saucedo FNP [address] [place] [address] PCP - General Nurse Practitioner Family 05/24/21 documented as of this encounter
--- OUTSIDE RECORDS SUMMARY | 2024-08-16 07:42 | XMS_ITS | Encounter Summary ---
Author Organization [facility] Address [address] [place] [address] Care Team Providers Care Operations Research Engineer Name Role Phone Ciera Saucedo Primary Care Provider [phone] Encounter Details Date Type Department Care Team [...] st Contact Info) Description 09/22/2024 8:00 AM JUNIOR BOOKKEEPER Office Visit [facility] IBD [facility]astro[facility]ology [facility] [place] [address] [facility] [address] [place] [address] Shreya Platt MD [address] [facility] [address] [place] [address] documented as of this encounter Visit Diagnoses Not on filedocumented in this encounter Care Teams Operations Research Engineer Relationship Specialty Start Date End Date Ciera Saucedo FNP [address] [place] [address] PCP - General Nurse Practitioner Family 05/24/21 documented as of this encounter
--- OUTSIDE RECORDS SUMMARY | 2024-08-16 07:42 | XMS_ITS | Encounter Summary ---
Author Organization [facility] Address [address] [place] [address] Care Team Providers Care Merchandising Representative Name Role Phone Ciera Saucedo Primary Care Provider [phone] Encounter Details Date Type Department Care Team [...] st Contact Info) Description 09/22/2024 8:00 AM SLITTER SERVICE AND SETTER Office Visit [facility] IBD and Gastroenterology [facility] [place] [address] [address] [place] [address] Shreya Platt MD [address] [facility] 100 [place] [address] documented as of this encounter Visit Diagnoses Not on filedocumented in this encounter Care Teams Merchandising Representative Relationship Specialty Start Date End Date Ciera Saucedo FNP [address] [place] [address] PCP - General Nurse Practitioner Family 05/24/21 documented as of this encounter
--- OUTSIDE RECORDS SUMMARY | 2024-08-16 07:42 | XMS_ITS | Encounter Summary ---
Author Organization [facility] Address [address] [place] [address] Care Team Providers Care Food Vendor Name Role Phone Ciera Saucedo Primary Care Provider [phone] Encounter Details Date Type Department Care Team [...] st Contact Info) Description 09/22/2024 8:00 AM INSURANCE VERIFICATION SPECIALIST Office Visit [facility] IBD and Gastroenterology [facility] [place] [address] [facility] [address] [place] [address] Shreya Platt MD [address] [facility] [address] [place] [address] documented as of this encounter Visit Diagnoses Not on filedocumented in this encounter Care Teams Food Vendor Relationship Specialty Start Date End Date Ciera Saucedo FNP [address] [place] [address] PCP - General Nurse Practitioner Family 05/24/21 documented as of this encounter
--- OUTSIDE RECORDS SUMMARY | 2024-08-16 07:42 | XMS_ITS | Encounter Summary ---
Author Organization [facility] Address [address] [place] [address] Care Team Providers Care Irrigator Overhead Name Role Phone Ciera Saucedo BARBI Primary Care Provider [phone] Reason for Visit * Reason Comments Med Refill Encounter Details Date Type Department Care Team (Late st Contact Info) Description 12/10/2023 Refill [facility] [address] [facility] [address] [place] [address] Kendra Brody, DARNELL [address] [place] [address] Vitamin D deficiency Social History [...] st Contact Info) Description 09/22/2024 8:00 AM PRINT SHOP MANAGER Office Visit [facility] IBD [facility] Gastroenterology [facility] [place] [address] [place] [address] Shreya Platt MD [address] [place] [address] documented as of this encounter Visit Diagnoses Diagnosis Vitamin D deficiency Unspecified vitamin D deficiency documented in this encounter Care Teams Irrigator Overhead Relationship Specialty Start Date End Date Ciera Saucedo FNP [address] [place] [address] PCP - General Nurse Practitioner Family 05/24/21 documented as of this encounter
--- OUTSIDE RECORDS SUMMARY | 2024-08-16 07:42 | XMS_ITS | Clinical Summary ---
Author Organization [facility] Address [address] [place] [address] Phone Care Team Providers Care Fire Marshal Refinery Name Role Phone Ciera Saucedo BARBI Primary Care Provider [phone] Allergies No known active allergies Medications Medication [...] Overview (05/25/2021): Follows with Shreya Platt MD [facility] IBD. Encounters Date Type Department Care Team Description 07/21/2024 Orders Only Initial Department [address] [place]: [place] [address] Provider, Historical from Last 3 Months Family [...] st Contact Info) Description 09/22/2024 8:00 AM MECHANICAL EQUIPMENT SALES ENGINEER Office Visit [facility] IBD and Gastroenterology Center [place] [address] [facility] [address] [place] [address] Shreya Platt MD [address] [facility] [address] [place] [address] Health Maintenance Due Date Last [...] CALPROTECTIN, FECAL Routine 07/21/2024 1 2:56 PM MECHANICAL EQUIPMENT SALES ENGINEER Crohn's disease of small intestine with complication INFLIXIMAB LEVEL PANEL Routine 07/21/2024 12:50 PM MECHANICAL EQUIPMENT SALES ENGINEER INFLIXIMAB LEVEL PANEL Routine 05/20/2024 11:03 AM CDT Crohn's disease of small intestine with complication from Last 3 Months Results * CALPROTECTIN, FECAL (07/21/2024 12:56 PM MECHANICAL EQUIPMENT SALES ENGINEER) CALPROTECTIN, FECAL 8 mcg/g [facility], Comment: ?Reference Range: ?<50 ? Normal ?50-120 ??Borderline ?>120 ?Elevated Calprotectin in Crohn's disease and ulcerative colitis can be five to several thousand times above the reference population (50 mcg/g or less). Levels are usually 50 mcg/g or less in healthy patients and with irritable bowel syndrome. Repeat testing in 4-6 weeks is suggested for borderline values. Test Performed at: [address], [address] [facility], [place] ??[address] Aaliyah Esquivel MD,PhD,FATOU Stool STOOL SPECIMEN / Unknown 07/21/2024 12:56 PM MECHANICAL EQUIPMENT SALES ENGINEER 07/22/2024 5:12 AM MECHANICAL EQUIPMENT SALES ENGINEER Kendra PATRICK BODY FLUIDS AND STOOLS [facility] [phone], [address] [place] [address] * INFLIXIMAB LEVEL PANEL (07/21/2024 12:50 PM MECHANICAL EQUIPMENT SALES ENGINEER) Only the most recent of2 resultswithin the time period is included. INFLIXIMAB LEVEL, IBD >50.0 mcg/mL [facility], INFLIXIMAB AB, IBD <10 <10 AU Q [facility], INFLIXIMAB INTERPRETATION SEE NOTE [address], Comment: The infliximab and infliximab anti-drug [...] clinical equivalence studies, the FDA and the [place] Gastro[employer] advocate applying infliximab clinical guidance to the use of its biosimilars. The [place] Gastro[employer] Association recommends optimal infliximab trough concentration [...] treating healthcare professional should refer to the laborer carpentry dock's approved labeling for prescribing, warnings, side effects and other important information. INFLIXIMAB COMMENT SEE NOTE Q [facility], Comment: This test was developed and its analytical performance characteristics have been determined by [facility]. It has not been cleared or approved by FDA. This assay has been validated pursuant to the CLIA regulations and is used for clinical purposes. For additional information, please refer to https://education.[employer]He[employer]/faq/CEK664 (This link is being provided for informational/educational purposes only.) TOOK VITAMINS, TESTS SHOWS NOT TO FASTING:NO FASTING: NO Test Performed at: [address], [address] [facility], [place] ??[address] Aaliyah Esquivel MD,PhD,FATOU 07/21/2024 12:5 0 PM MECHANICAL EQUIPMENT SALES ENGINEER 07/21/2024 12:54 PM MECHANICAL EQUIPMENT SALES ENGINEER Kendra Brody ANP CHEMISTRY ORDER [facility] [phone] [facility], [address] [place] [address] from Last 3 Months Care Teams Fire Marshal Refinery Relationship Specialty Start Date End Date Ciera Saucedo FNP [address] [place] [address] PCP - General Nurse Practitioner Family 05/24/21
--- OUTSIDE RECORDS SUMMARY | 2024-08-16 07:42 | XMS_ITS | Encounter Summary ---
Author Organization [facility] Address [address] [place] [address] Care Team Providers Care Otr Company Driver Name Role Phone Ciera Saucedo Primary Care Provider [phone] Encounter Details Date Type Department Care Team [...] st Contact Info) Description 09/22/2024 8:00 AM SENIOR NET SOFTWARE ENGINEER Office Visit [facility] IBD and Gastroenterology Center [place] [address] [address] [place] [address] Shreya Platt MD [address] [facility] 100 [place] [address] documented as of this encounter Visit Diagnoses Not on filedocumented in this encounter Care Teams Otr Company Driver Relationship Specialty Start Date End Date Ciera Saucedo FNP [address] [place] [address] PCP - General Nurse Practitioner Family 05/24/21 documented as of this encounter
--- OUTSIDE RECORDS SUMMARY | 2024-08-16 07:42 | XMS_ITS | Encounter Summary ---
Author Organization [facility] Address [address] [place] [address] Care Team Providers Care Shredding Specialist Name Role Phone Ciera Saucedo Primary Care Provider [phone] Encounter Details Date Type Department Care Team [...] st Contact Info) Description 09/22/2024 8:00 AM SPEECH PROFESSOR Office Visit [facility] IBD and Gastroenterology Center [place] [address] [facility] [address] [place] [address] Shreya Platt MD [address] [facility] 100 [place] [address] documented as of this encounter Visit Diagnoses Not on filedocumented in this encounter Care Teams Shredding Specialist Relationship Specialty Start Date End Date Ciera Saucedo FNP [address] [place] [address] PCP - General Nurse Practitioner Family 05/24/21 documented as of this encounter
--- OUTSIDE RECORDS SUMMARY | 2024-08-16 07:42 | XMS_ITS | Encounter Summary ---
Author Organization [facility] Address [address] [place] [address] Care Team Providers Care Education Adviser Name Role Phone Ciera Saucedo Primary Care Provider [phone] Encounter Details Date Type Department Care Team [...] st Contact Info) Description 09/22/2024 8:00 AM SPINNER HAND Office Visit [facility] IBD and Gastroenterology Center [place] [address] [facility] [address] [place] [address] Shreya Platt MD [address] [facility] 100 [place] [address] documented as of this encounter Visit Diagnoses Not on filedocumented in this encounter Care Teams Education Adviser Relationship Specialty Start Date End Date Ciera Saucedo FNP [address] [place] [address] PCP - General Nurse Practitioner Family 05/24/21 documented as of this encounter
--- OUTSIDE RECORDS SUMMARY | 2024-08-16 07:42 | XMS_ITS | Encounter Summary ---
Author Organization [facility] Address [address] [place] [address] Care Team Providers Care Mechanical Assembly Name Role Phone Ciera Saucedo Primary Care Provider [phone] Encounter Details Date Type Department Care Team [...] st Contact Info) Description 09/22/2024 8:00 AM INTENSIVE CARE NURSE Office Visit [facility] IBD and Gastroenterology Center [place] [address] [facility] [address] [place] [address] Shreya Platt MD [address] [facility] [address] [place] [address] documented as of this encounter Visit Diagnoses Not on filedocumented in this encounter Care Teams Mechanical Assembly Relationship Specialty Start Date End Date Ciera Saucedo FNP [address] [facility] [place] [address] PCP - General Nurse Practitioner Family 05/24/21 documented as of this encounter
--- OUTSIDE RECORDS SUMMARY | 2024-08-16 07:42 | XMS_ITS | Encounter Summary ---
Author Organization [facility] Address [address] [place] [address] Care Team Providers Care Assistant Women'S Rowing Coach Name Role Phone Ciera Saucedo Primary Care Provider [phone] Encounter Details Date Type Department Care Team [...] Contact Info) Description 09/22/2024 8:00 AM LABORER TURKEY FARM Office Visit [facility] IBD and Gastroenterology Center [place] [address] [facility] [address] [place] [address] Shreya Platt MD [address] [facility] 100 [place] [address] documented as of this encounter Visit Diagnoses Not on filedocumented in this encounter Care Teams Assistant Women'S Rowing Coach Relationship Specialty Start Date End Date Ciera Saucedo FNP [address] [place] [address] PCP - General Nurse Practitioner Family 05/24/21 documented as of this encounter
--- OUTSIDE RECORDS SUMMARY | 2024-08-16 07:42 | XMS_ITS | Encounter Summary ---
Author Organization [facility] Address [address] [place] [address] Care Team Providers Care Conveyor Line Bakery Worker Name Role Phone Ciera Saucedo Primary Care Provider [phone] Encounter Details Date Type Department Care Team [...] st Contact Info) Description 09/22/2024 8:00 AM ARMORING MACHINE OPERATOR Office Visit [facility] IBD and Gastroenterology Center [place] [address] [facility] [address] [place] [address] Shreya Platt MD [address] [facility] [address] [place] [address] documented as of this encounter Visit Diagnoses Not on filedocumented in this encounter Care Teams Conveyor Line Bakery Worker Relationship Specialty Start Date End Date Ciera Saucedo FNP [address] [place] [address] PCP - General Nurse Practitioner Family 05/24/21 documented as of this encounter
--- OUTSIDE RECORDS SUMMARY | 2024-08-16 07:42 | XMS_ITS | Encounter Summary ---
Author Organization [facility] Address [address] [place] [address] Care Team Providers Care Weaver Apprentice Name Role Phone Ciera Saucedo Primary Care Provider [phone] Encounter Details Date Type Department Care Team [...] Contact Info) Description 09/22/2024 8:00 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 SAWMILL Office Visit [facility] IBD and Gastroenterology Center [place] [address] [facility] [address] [place] [address] Shreya Platt MD [address] [facility] [address] [place] [address] documented as of this encounter Visit Diagnoses Not on filedocumented in this encounter Care Teams Weaver Apprentice Relationship Specialty Start Date End Date Ciera Saucedo FNP [address] [place] [address] PCP - General Nurse Practitioner Family 05/24/21 documented as of this encounter
--- OUTSIDE RECORDS SUMMARY | 2024-08-16 07:42 | XMS_ITS | Encounter Summary ---
Author Organization [facility] Address [address] [place] [address] Care Team Providers Care Senior Report Developer Name Role Phone Ciera Saucedo Primary Care Provider [phone] Encounter Details Date Type Department Care Team [...] st Contact Info) Description 09/22/2024 8:00 AM CLAY MODELER Office Visit [facility] IBD and Gastroenterology Center [place] [address] [facility] [address] [place] [address] Shreya Platt MD [address] [facility] [address] [place] [address] documented as of this encounter Visit Diagnoses Not on filedocumented in this encounter Care Teams Senior Report Developer Relationship Specialty Start Date End Date Ciera Saucedo FNP [address] [place] [address] PCP - General Nurse Practitioner Family 05/24/21 documented as of this encounter
--- OUTSIDE RECORDS SUMMARY | 2024-08-16 07:42 | XMS_ITS | Encounter Summary ---
Author Organization [facility] Address [address] [place] [address] Care Team Providers Care Electronic Masking System Operator Name Role Phone Ciera Saucedo Primary Care Provider [phone] Encounter Details Date Type Department Care Team [...] st Contact Info) Description 09/22/2024 8:00 AM ADULT PSYCHIATRIST Office Visit [facility] IBD and Gastroenterology Center [place] [address] [facility] [address] [place] [address] Shreya Platt MD [address] [facility] [address] [place] [address] documented as of this encounter Visit Diagnoses Not on filedocumented in this encounter Care Teams Electronic Masking System Operator Relationship Specialty Start Date End Date Ciera Saucedo FNP [address] [place] [address] PCP - General Nurse Practitioner Family 05/24/21 documented as of this encounter
--- OUTSIDE RECORDS SUMMARY | 2024-08-16 07:42 | XMS_ITS | Encounter Summary ---
Author Organization [facility] Address [address] [place] [address] Attn: [place] [address] Care Team Providers Care Graduate Student Instructor Name Role Phone Ciera Saucedo BARBI Primary Care Provider [phone] Encounter Details Date Type Department Care Team (Late Contact Info) Description 07/21/2024 Orders Only Initial Department [address] [place] [address] ATTN: [place] [address] Provider, Historical Social History Tobacco Use Types [...] (Late Contact Info) Description 09/22/2024 8:00 AM DIE EQUIPMENT OPERATOR Office [facility] IBD and Gastroenterology Center [place] [address] [facility] [address] [place] [address] Shreya Platt MD [address] [facility] 100 [place] [address] documented as of this encounter Procedures Procedure Name Priority Date/Time Associated Diagnosis Comments INFLIXIMAB LEVEL PANEL Routine 07/21/2024 12:50 PM DIE EQUIPMENT OPERATOR documented in this encounter Results * INFLIXIMAB LEVEL PANEL (07/21/2024 12:50 PM DIE EQUIPMENT OPERATOR) INFLIXIMAB LEVEL, IBD >50.0 mcg/mL [facility], INFLIXIMAB AB, IBD <10 <10 AU [facility], INFLIXIMAB INTERPRETATION SEE NOTE [facility], Comment: The infliximab and infliximab anti-drug antibody [...] clinical equivalence studies, the FDA and the [place] Gastroenterological Association advocate applying infliximab clinical guidance to the use of its biosimilars. The [place] Gastroenterological Association recommends optimal infliximab trough concentration [...] treating healthcare professional should refer to the internet cafe manager's approved labeling for prescribing, warnings, side effects and other important information. INFLIXIMAB COMMENT SEE NOTE Q [employer]/ [facility], Comment: This test was developed and its analytical performance characteristics have been determined by [facility]. It has not been cleared or approved by FDA. This assay has been validated pursuant to the CLIA regulations and is used for clinical purposes. For additional information, please refer to https://education.Diagnostic Biochips.Panda [employer]/faq/AKH288 (This link is being provided for informational/educational purposes only.) TOOK VITAMINS, TESTS SHOWS NOT TO FASTING:NO FASTING: NO Test Performed at: [facility], [address] [facility], [place] ??[phone] Aaliyah Esquivel MD,PhD,FATOU 07/21/2024 12:5 0 PM DIE EQUIPMENT OPERATOR 07/21/2024 12:54 PM DIE EQUIPMENT OPERATOR Kendra Brody ANP CHEMISTRY ORDER [facility] [phone] [facility], [address] [place] [address] documented in this encounter Visit Diagnoses Not on filedocumented in this encounter Care Teams Graduate Student Instructor Relationship Specialty Start Date End Date Ciera Saucedo FNP [address] [place] [address] PCP - General Nurse Practitioner Family 05/24/21 documented as of this encounter
--- OUTSIDE RECORDS SUMMARY | 2024-08-16 07:42 | XMS_ITS | Encounter Summary ---
Author Organization [facility] Address [address] [place] [address] Care Team Providers Care Packer Inspector Name Role Phone Ciera Saucedo Primary Care Provider [phone] Encounter Details Date Type Department Care Team [...] st Contact Info) Description 09/22/2024 8:00 AM MEDIA LAW FACULTY MEMBER Office Visit [facility] IBD and Gastroenterology Center [place] [address] [facility] [address] [place] [address] Shreya Platt MD [address] [facility] [address] [place] [address] documented as of this encounter Visit Diagnoses Not on filedocumented in this encounter Care Teams Packer Inspector Relationship Specialty Start Date End Date Ciera Saucedo FNP [address] [place] [address] PCP - General Nurse Practitioner Family 05/24/21 documented as of this encounter
--- OUTSIDE RECORDS SUMMARY | 2024-08-16 07:42 | XMS_ITS | Encounter Summary ---
Author Organization [facility] Address [address] [place] [address] Care Team Providers Care Assurance Senior Manager Name Role Phone Ciera Saucedo Primary Care Provider [phone] Encounter Details Date Type Department Care Team [...] st Contact Info) Description 09/22/2024 8:00 AM AMBULANCE OFFICER Office [facility] IBD and Gastroenterology [facility] [place] [address] [facility] [address] [place] [address] Shreya Platt MD [address] [facility] [address] [place] [address] documented as of this encounter Visit Diagnoses Not on filedocumented in this encounter Care Teams Assurance Senior Manager Relationship Specialty Start Date End Date Ciera Saucedo FNP [address] [place] [address] PCP - General Nurse Practitioner Family 05/24/21 documented as of this encounter
--- OUTSIDE RECORDS SUMMARY | 2024-08-16 07:42 | XMS_ITS | Encounter Summary ---
Author Organization [facility] Address [address] [place] [address] Care Team Providers Care Multimedia Assistant Name Role Phone Ciera Saucedo Primary Care Provider [phone] Encounter Details Date Type Department Care Team [...] st Contact Info) Description 09/22/2024 8:00 AM AERIAL INSTALLER Office Visit [facility] IBD and Gastroenterology Center [place] [address] [facility] [address] [place] [address] Shreya Platt MD [address] [facility] 100 [place] [address] documented as of this encounter Visit Diagnoses Not on filedocumented in this encounter Care Teams Multimedia Assistant Relationship Specialty Start Date End Date Ciera Saucedo FNP [address] [place] [address] PCP - General Nurse Practitioner Family 05/24/21 documented as of this encounter
--- OUTSIDE RECORDS SUMMARY | 2024-08-16 07:42 | XMS_ITS | Encounter Summary ---
[facility] Organization [facility] Address [address] [place] [address] Care Team Providers Care Dbas Name Role Phone EhsanCiera copeland BARBI Primary Care Provider [phone] Reason for Referral * Outpatient Services (Routine) - Closed Specialty Diagnoses / Procedures Referred By Contkarthikeyan t Referred To Contact Oncology Diagnoses Crohn's disease of small intestine with complication Procedures INFUSION THERAPY Shreya Platt MD [address] [facility] 100 [place] [address] [facility] [address] [address] [place] [address] Referral ID Status Reason Start Date Expiration Date Visits Re quested Visits Authorized [id number] Closed 12/25/2023 01/24/2025 1 1 Reason for Visit * Reason Onset Date Comments Needs Orders Written 12/25/2023 Encounter Details Date Type Department Care Team (Late st Contact Info) Description 12/25/2023 Telephone [facility] [address] [address] Shreya Platt MD [address] [facility] 100 [place] [address] Needs Orders Written Social History [...] 9:26 AM CDT Call from Ned at [facility] home infusion requesting new orders for infusions. documented in this encounter Plan of Treatment Upcoming Encounters Date Type Department Care Team (Late st Contact Info) Description 09/22/2024 8:00 AM ELECTRONICS PARTS SALES REPRESENTATIVE Office Visit [facility] [place] [address] [place] [address] Shreya Platt MD [address] [place] [address] documented as of this encounter Visit Diagnoses Diagnosis Crohn's disease of small intestine with complication- Primary Regional enteritis of small intestine documented in this encounter Care Teams Dbas Relationship Specialty Start Date End Date Ciera Saucedo FNP [address] [place] [address] PCP - General Nurse Practitioner Family 05/24/21 documented as of this encounter
--- OUTSIDE RECORDS SUMMARY | 2024-08-16 07:42 | XMS_ITS | Encounter Summary ---
Author Organization [facility] Address [address] [place] [address] Care Team Providers Care Natural Developer Name Role Phone Ciera Saucedo Primary Care Provider [phone] Encounter Details Date Type Department Care Team [...] st Contact Info) Description 09/22/2024 8:00 AM CLOTH SHEARER Office Visit [facility] IBD and Gastroenterology Center [place] [address] [facility] [address] [place] [address] Shreya Platt MD [address] [facility] [address] [place] [address] documented as of this encounter Visit Diagnoses Not on filedocumented in this encounter Care Teams Natural Developer Relationship Specialty Start Date End Date Ciera Saucedo FNP [address] [place] [address] PCP - General Nurse Practitioner Family 05/24/21 documented as of this encounter
--- OUTSIDE RECORDS SUMMARY | 2024-08-16 07:42 | XMS_ITS | Encounter Summary ---
Author Organization [facility] Address [address] [place] [address] Care Team Providers Care Icer Air Conditioning Name Role Phone Ciera Saucedo Primary Care Provider [phone] Encounter Details Date Type Department Care Team [...] st Contact Info) Description 09/22/2024 8:00 AM SEALING MACHINE OPERATOR Office Visit [facility] IBD and Gastroenterology Center [place] [address] [facility] [address] [place] [address] Shreya Platt MD [address] [facility] [address] [place] [address] documented as of this encounter Visit Diagnoses Not on filedocumented in this encounter Care Teams Icer Air Conditioning Relationship Specialty Start Date End Date Ciera Saucedo FNP [address] [place] [address] PCP - General Nurse Practitioner Family 05/24/21 documented as of this encounter
--- OUTSIDE RECORDS SUMMARY | 2024-08-16 07:42 | XMS_ITS | Encounter Summary ---
Author Organization [facility] Address [address] [place] [address] Care Team Providers Care Drill Press Set Up Operator Radial Name Role Phone Ciera Saucedo BARBI Primary Care Provider Reason for Visit * Reason Comments Follow Up Crohn's Disease Encounter Details Date Type Department Care Team (Late st Contact Info) Description 05/05/2024 8:00 AM CDT Office Visit [facility] IBD and Gastroenterology Center [place] [address] [facility] [address] [place] [address] Kendra Brody, DARNELL [address] [place] [address] Crohn's disease of small intestine [...] Brody ANP - 05/05/2024 8:00 AM CDT [facility] Inflammatory Bowel Disease Clinic DARNELL Manzano [...] biopsy. EGD showed mild gastritis no hpylori. [id number] daily. 10/2021 - started infliximab 12/2021 - ifx level 23, no ab. CRP 49 01/2022 - CTE normal. 04/2023 - CTE normal Sister has crohn's and I see her as well. She takes entyvio. (failed remicade and stelara) I have reviewed outside records today as part of this visit from [facility] Past Medical History: I updated the electronic [...] Connections: Feeling Socially Integrated (10/28/2023) Received from [facility] Physicians OASIS D0700: Social Isolation Frequency [...] Rx. Kendra Brody, DARNELL Division of Gastroenterology [facility] Inflammatory Bowel Disease [phone] CC: Ciera SaucedoCRISTIANAP No orders of the [...] Kendra Brody ANP - 07/30/2024 9:13 AM PRISON WARDEN Pennie Aguila Your stool results still look great! Thanks! DARNELL Manzano ON WARDEN * Result Encounter Note - Kendra Brody ANP - 05/28/2024 12:48 PM CDT Pennie Aguila Your lab results look great! Thanks! DARNELL Manzano * Patient Instructions - Kendra Brody ANP - 05/05/2024 8:45 AM CDT Thank you for entrusting your healthcare to the physicians at [facility] Inflammatory Bowel Disease and Gastroenterology Following your visit, you may receive a survey via email or [employer]. Kendra encourages you to respond to this confidential survey about your care. If you received excellent care, Kendra would appreciate your evaluation. Your feedback helps us to provide quality service at every visit. Thank you for your help in making our practice meet the highest expectations! [facility] Inflammatory Bowel Disease and Gastroenterology Center If you have IBD, this is the preferred office to contact. [address] [place] [address] Other important numbers to add to our contact info: After hours physician exchange: [phone] Perales: To schedule CT or MRI: Call [phone] To schedule EGD/Colon/Flex [phone] Lopez/Lc: To schedule CT or MRI: Call [phone] To schedule an EGD/Colon/Flex Sig: Call [phone] IMPORTANT: The following information and instructions are [...] (Late Contact Info) Description 09/22/2024 8:00 AM PRISON WARDEN Office Visit [facility] IBD and Gastroenterology Center [place] [address] [place] [address] Shreya Platt MD [address] [place] [address] documented as of this encounter Procedures Procedure Name Priority Date/Time Associated Diagnosis Comments CALPROTECTIN, FECAL Routine 07/21/2024 1 2:56 PM PRISON WARDEN Crohn's disease of small intestine with complication INFLIXIMAB LEVEL PANEL Routine 05/20/2024 11:03 AM CDT Crohn's disease of small intestine with complication documented in this encounter Results * CALPROTECTIN, FECAL (07/21/2024 12:56 PM PRISON WARDEN) CALPROTECTIN, FECAL 8 mcg/g [facility], Comment: ?Reference Range: ?<50 ? Normal ?50-120 ??Borderline ?>120 ?Elevated Calprotectin in Crohn's disease and ulcerative colitis can be five to several thousand times above the reference population (50 mcg/g or less). Levels are usually 50 mcg/g or less in healthy patients and with irritable bowel syndrome. Repeat testing in 4-6 weeks is suggested for borderline values. Test Performed at: [employer] [facility], [address] [facility], [place] ??[address] Aaliyah Esquivel MD,PhD,FATOU Stool STOOL SPECIMEN / Unknown 07/21/2024 12:56 PM PRISON WARDEN 07/22/2024 5:12 AM PRISON WARDEN Kendra PATRICK BODY FLUIDS AND STOOLS [facility] [phone] [employer], [address] [place] [address] * INFLIXIMAB LEVEL PANEL (05/20/2024 11:03 AM CDT) INFLIXIMAB LEVEL, IBD 25.3 mcg/mL [facility], INFLIXIMAB AB, IBD <10 <10 AU [facility], INFLIXIMAB INTERPRETATION SEE NOTE [employer], Comment: The infliximab and [...] clinical equivalence studies, the FDA and the [place] [employer] advocate applying infliximab clinical guidance to the use of its biosimilars. The [place] [employer]astro[employer] recommends optimal infliximab trough concentration [...] treating healthcare professional should refer to the emergency medicine specialist's approved labeling for prescribing, warnings, side effects and other important information. INFLIXIMAB COMMENT SEE NOTE [employer], Comment: This test was developed and its analytical performance characteristics have been determined by [employer] [facility]. It has not been cleared or approved by FDA. This assay has been validated pursuant to the CLIA regulations and is used for clinical purposes. For additional information, please refer to https://education.[employer]/faq/LQE324 (This link is being provided for informational/educational purposes only.) FASTING:YES FASTING: YES Test Performed at: [employer], [address] [place], [place] ??[address] Aaliyah Esquivel MD,PhD,FATOU Blood 05/20/2024 11:0 3 AM CDT 05/20/2024 11:04 AM CDT Kendra Brody ANP CHEMISTRY ORDER [facility] [phone] [employer], [address] [place] [address] documented in this encounter Visit Diagnoses Diagnosis Crohn's disease of small intestine with complication- Primary Regional enteritis of small intestine Constipation, unspecified constipation type Vitamin D deficiency Unspecified vitamin D deficiency Iron deficiency anemia, unspecified iron deficiency anemia type documented in this encounter Care Teams Drill Press Set Up Operator Radial Relationship Specialty Start Date End Date Ciera Saucedo FNP [address] [place] [address] PCP - General Nurse Practitioner Family 05/24/21 documented as of this encounter
--- OUTSIDE RECORDS SUMMARY | 2024-08-16 07:42 | XMS_ITS | Encounter Summary ---
Author Organization [facility] Address [address] [place] [address] Care Team Providers Care Moss Picker Name Role Phone Ciera Saucedo Primary Care Provider [phone] Encounter Details Date Type Department Care Team [...] st Contact Info) Description 09/22/2024 8:00 AM DEBT COLLECTION SPECIALIST Office Visit [facility] IBD and Gastroenterology Center [place] [address] [facility] [address] [place] [address] Shreya Platt MD [address] [facility] 100 [place] [address] documented as of this encounter Visit Diagnoses Not on filedocumented in this encounter Care Teams Moss Picker Relationship Specialty Start Date End Date Ciera Saucedo FNP [address] [place] [address] PCP - General Nurse Practitioner Family 05/24/21 documented as of this encounter
--- OUTSIDE RECORDS SUMMARY | 2024-08-16 07:42 | XMS_ITS | Encounter Summary ---
Author Organization [facility] Address [address] [place] [address] Care Team Providers Care Train Brakeman Name Role Phone Ciera Saucedo Primary Care Provider [phone] Encounter Details Date Type Department Care Team [...] st Contact Info) Description 09/22/2024 8:00 AM GENERAL DISTILLERY WORKER Office Visit [facility] IBD and Gastroenterology Center [place] [address] [facility] [address] [place] [address] Shreya Platt MD [address] [facility] [address] [place] [address] documented as of this encounter Visit Diagnoses Not on filedocumented in this encounter Care Teams Train Brakeman Relationship Specialty Start Date End Date Ciera Saucedo FNP [address] [place] [address] PCP - General Nurse Practitioner Family 05/24/21 documented as of this encounter
--- OUTSIDE RECORDS SUMMARY | 2024-08-16 07:43 | XMS_ITS | Encounter Summary ---
Author Organization [facility] Address [address] [place] [address] Care Team Providers Care Diesel Stationary Engineer Name Role Phone Ciera Saucedo BARBI Primary Care Provider [phone] Encounter Details Date Type Department Care Team (Late st Contact Info) Description 06/22/2023 Orders Only [facility] Oncology and Hematology - [address] [facility] [address] [place] [address] Alli Cao MD [address] [facility] [address] [place] [address] Social History Tobacco Use Types [...] st Contact Info) Description 09/22/2024 8:00 AM FINANCIAL SALES CONSULTANT Office Visit [facility] IBD and Gastroenterology Center [place] [address] [email or web address] [address] [place] [address] Shreya Platt MD [address] [facility] 100 [place] [address] documented as of this encounter [...] on filedocumented in this encounter Care Teams Diesel Stationary Engineer Relationship Specialty Start Date End Date Ciera Saucedo FNP [address] [place] [address] PCP - General Nurse Practitioner Family 05/24/21 documented as of this encounter
--- OUTSIDE RECORDS SUMMARY | 2024-08-16 07:43 | XMS_ITS | Encounter Summary ---
Author Organization [facility] Address [address] [place] [address] Care Team Providers Care Chemical Etch Operator Name Role Phone Ciera Saucedo BARBI Primary Care Provider [phone] Reason for Visit * Reason Comments Follow Up Crohn's Encounter Details Date Type Department Care Team (Latest Contact Info) Description 07/05/2022 9:20 AM SAND CUTTING MACHINE OPERATOR Office Visit [facility] IBD and Gastroenterology Center [address] [address] Shreya Platt MD [address] [facility] [address] [place] [address] Crohn's disease of small intestine [...] Coronavirus/COVID-19? No / Unsure 07/05/2022 9:47 AM SAND CUTTING MACHINE OPERATOR documented as of this encounter Last Filed Vital Signs Vital Sign Reading Time Taken Comments Blood Pressure 120/73 07/05/2022 10:11 AM SAND CUTTING MACHINE OPERATOR Pulse 83 07/05/2022 10:11 AM SAND CUTTING MACHINE OPERATOR Temperature 36.9 ??C (98.5 ??F) 07/05/2022 10:[address] Respiratory Rate - - Oxygen Saturation 95% 07/05/2022 10:11 AM SAND CUTTING MACHINE OPERATOR Inhaled Oxygen Concentration - - Weight 109.8 kg (242 lb) 07/05/2022 10:11 AM SAND CUTTING MACHINE OPERATOR Height 162.6 cm (5' 4 ) 07/05/2022 10:11 AM SAND CUTTING MACHINE OPERATOR Body Mass Index 41.54 07/05/2022 10:11 AM SAND CUTTING MACHINE OPERATOR documented in this encounter Progress Notes * Shreya Platt MD - 07/05/2022 9:20 AM CST [facility] Inflammatory Bowel Disease Clinic Shreya [...] biopsy. EGD showed mild gastritis no hpylori. [id number] daily. 10/2021 - started infliximab 12/2021 - ifx level 23, no ab. CRP 49 01/2022 - CTE normal. Sister has crohn's and I see her as well. She takes entyvio. (failed remicade and stelara) I have reviewed outside records today as part of this visit from [facility] Past Medical History: I updated the [...] all IBD patients on Biologicssee high school math tutor, and she will talk to her OB [...] Return to clinic 3-4months Shreya Platt MD [facility] Gastroenterology and Inflammatory Bowel Disease CC: [...] mg by mouth daily., Disp: , Rfl: CUTTING MACHINE OPERATOR documented in this encounter Miscellaneous Notes * Patient Instructions - Shreya Platt MD - 07/05/2022 10:30 AM SAND CUTTING MACHINE OPERATOR Thank you for entrusting your healthcare to the physicians at [facility] Inflammatory Bowel Disease and Gastroenterology Following your visit, you may receive a survey via email or [employer]. Dr. Platt encourages you to respond to this confidential survey about your care. If you received excellent care, Dr. Plattwould appreciate your evaluation. Your feedback helps us to provide quality service at every visit.Thank you for your help in making our practice meet the highest expectations! [facility] Inflammatory Bowel Disease and Gastroenterology Center If you have IBD, this is the preferred office to contact. [facility] [address] [place] [address] Other important numbers to add to our contact info: After hours physician exchange: [phone] or MRI: Call [phone] To schedule an EGD/Colon/Flex Sig: Call [phone] IMPORTANT: The following information and instructions are from your visit today: Protonix 40mg twice daily. Get abdominal ultrasound. Continue infliximab Return to clinic 3-4months Shreya Platt MD CUTTING MACHINE OPERATOR documented in this encounter Plan of Treatment Upcoming Encounters Date Type Department Care Team (Late st Contact Info) Description 09/22/2024 8:00 AM SAND CUTTING MACHINE OPERATOR Office Visit [facility] IBD and Gastroenterology Center [place] [address] [place] [address] Shreya Platt MD [address] [place] [address] documented as of this encounter Visit Diagnoses Diagnosis Crohn's disease of small intestine with complication- Primary Regional enteritis of small intestine documented in this encounter Care Teams Chemical Etch Operator Relationship Specialty Start Date End Date Ciera Saucedo FNP [address] [place] [address] PCP - General Nurse Practitioner Family 05/24/21 documented as of this encounter
--- OUTSIDE RECORDS SUMMARY | 2024-08-16 07:43 | XMS_ITS | Encounter Summary ---
Author Organization [facility] Address [address] [facility] Attn: [place] [address] Care Team Providers Care Jewelry Internship Name Role Phone Ciera Saucedo BARBI Primary Care Provider [phone] Encounter Details Date Type Department Care Team [...] st Contact Info) Description 09/22/2024 8:00 AM PROGRAM OR PROJECT ADMINISTRATOR Office Visit [facility] IBD and Gastroenterology Center [place] [address] [place] [address] Shreya Platt MD [address] [place] [address] documented as of this encounter Visit Diagnoses Not on filedocumented in this encounter Care Teams Jewelry Internship Relationship Specialty Start Date End Date Ciera Saucedo FNP [address] [place] [address] PCP - General Nurse Practitioner Family 05/24/21 documented as of this encounter
--- OUTSIDE RECORDS SUMMARY | 2024-08-16 07:43 | XMS_ITS | Encounter Summary ---
Author Organization [facility] Address [address] [place] [address] Care Team Providers Care Busher Helper Name Role Phone Ciera Saucedo BARBI Primary Care Provider [phone] Reason for Visit * Reason Onset Date Comments ultrasound in question 07/27/2022 Encounter Details Date Type Department Care Team (Late st Contact Info) Description 07/27/2022 Telephone [facility] IBD and Gastroenterology Center [address] [address] Shreya Platt MD [address] [facility] 100 [place] [address] ultrasound in question Social History [...] Coronavirus/COVID-19? No / Unsure 07/26/2022 5:13 PM CRANIOLOGIST documented as of this encounter Miscellaneous Notes * Telephone Encounter - Jennyfer Nunez - 07/27/2022 2:34 PM CST Images from the original note were not included. Patient called to see if she can still get her imaging ordered by Dr. Platt the imaging facility said they thought she was too far along in her to get the imaging done unless they heardfrom Dr. lPatt.. IOLOGIST documented in this encounter Plan of Treatment Upcoming Encounters Date Type Department Care Team (Late st Contact Info) Description 09/22/2024 8:00 AM CRANIOLOGIST Office Visit [facility] IBD and Gastroenterology Center [place] [address] [facility] [address] [place] [address] Shreya Platt MD [address] [facility] [address] [place] [address] documented as of this encounter Visit Diagnoses Not on filedocumented in this encounter Care Teams Busher Helper Relationship Specialty Start Date End Date Ciera Saucedo FNP [address] [place] [address] PCP - General Nurse Practitioner Family 05/24/21 documented as of this encounter
--- OUTSIDE RECORDS SUMMARY | 2024-08-16 07:43 | XMS_ITS | Encounter Summary ---
Author Organization [facility] Address [address] [place] [address] Care Team Providers Care Open Tenter Operator Name Role Phone Ehsandinorah Ciera BARBI Primary Care Provider [phone] Reason for Referral * CT Scan (Routine) - Closed Specialty Diagnoses / Procedures Referred By Contac t Referred To Contact Radiology Diagnoses Crohn's disease of small intestine without complication Procedures CT ENTEROGRAPHY W CONTRAST Shreya Platt MD [address] [address] [facility] [address] [address] Referral ID Status Reason Start Date Expiration Date Visits Re quested Visits Authorized [id number] Closed 04/20/2023 07/21/2023 1 1 Reason for Visit * CT Scan (Routine) - Closed Specialty Diagnoses / Procedures Referred By Contac t Referred To Contact Radiology Diagnoses Crohn's disease of small intestine without complication Procedures CT ENTEROGRAPHY W CONTRAST Shreya Platt MD [address] [place] [address] [facility] [address] [address] Referral ID Status Reason Start Date Expiration Date Visits Re quested Visits Authorized [id number] Closed 04/20/2023 07/21/2023 1 1 Encounter Details Date Type Department Care Team (Latest Contact Info) Description 05/01/2023 10:18 AM CDT - 05/01/2023 11:59 PM CDT Hospital Encounter [facility] Imaging Services [address] [place] [address] Shreya Platt MD [address] [place] [address] Discharge Disposition: Home or Self [...] - COMPUTED TOMOGRAPHY MEDICATION and FLUSH PROTOCOL [facility] THIS PROTOCOL IS IMPLEMENTED WHEN AN APPROVED PROVIDER ORDERS A CT SCAN WITH CONTRAST BY PAPER OR ELECTRONIC ORDER. The digital marketing intern will order place an order in [facility] for contrast ???Scope of Practice - no cosignrequired?? . Enter the protocol in the patient???s electronic health record using HopStop.come: .[facility] Communication Orders: For ordered imaging procedures requiring [...] for procedure. If at any time the International Marketing Coordinator has a question about which option to [...] oral. May use nasoenteric tube if needed. [place] to 3 months Administer up to 90mL [...] less than 55kg and confirm dose with radiologist.[place] to 15 years old Administer up to 2.2mL/kg (to MAX of 80 mL) of Iopamidol (Isovue-370) 76%, intravenously, one time only 15 years old and older Administer up to 2.2mL/kg (to MAX of 125mL) of Iopamidol (Isovue-370) 76%, intravenously, one time only Initiating Department(s): Imaging Services - CT Approved by: Liseth Toledo Date: 02/2022 Approved by: Rd Mckenzie MD, Bar Back Date: 02/2022 Approved by: P&T Committee Date: 02/2022 Approved by: Medical Executive Committee Date: 02/2022 documented in this encounter Plan of Treatment Upcoming Encounters Date Type Department Care Team (Late st Contact Info) Description 09/22/2024 8:00 AM REPAIR OPERATOR Office Visit [facility]astro[facility] [place] [address] [facility] [address] [place] [address] Shreya Platt MD [address] [facility] [place] [address] documented as of this encounter [...] to suggest stricture or obstruction. DICTATION LOCATION: [address] Narrative 05/01/2023 2:[address] [...] suggest stricture or obstruction. DICTATION LOCATION: Location [address] [place] [address] ORDERABLES documented in [...] mL documented in this encounter Care Teams Open Tenter Operator Relationship Specialty Start Date End Date Ciera Saucedo FNP [address] [place] [address] PCP - General Nurse Practitioner Family 05/24/21 documented as of this encounter
--- OUTSIDE RECORDS SUMMARY | 2024-08-16 07:43 | XMS_ITS | Encounter Summary ---
Author Organization [facility] Address [address] [place] [address] Care Team Providers Care Warehouse And Receiving Supervisor Name Role Phone Ciera Saucedo BARBI Primary Care Provider [phone] Reason for Referral * Eval and Treat (Routine) - Open Specialty Diagnoses / Procedures Referred By Carolina t Referred To Contact Gastroenterology Diagnoses Crohn's disease of small intestine with complication Procedures MN OFFICE/OUTPATIENT ESTABLISHED MOD MDM 30 MIN MN OFFICE/OUTPATIENT NEW MODERATE MDM 45 MINUTES Kendra Brody ANP [address] [place] [address] [facility] [address] [place] [address] Referral ID Status Reason Start Date Expiration Date Visits Requested Visits Authorized [id number] Open Performing Department to Schedule 09/03/2023 09/02/2024 1 1 BRUSH OPERATOR Reason for Visit * Reason Comments Crohn's Disease Encounter Details Date Type Department Care Team (Late st Contact Info) Description 09/03/2023 10:00 AM WIRE BRUSH OPERATOR Office Visit [facility] IBD and Gastroenterology Center [address] [place] [address] Kendra Brody ANP [address] [place] [address] Crohn's disease of small intestine [...] Comments Blood Pressure 110/67 09/03/2023 10:40 AM WIRE BRUSH OPERATOR Pulse 91 09/03/2023 10:40 AM WIRE BRUSH OPERATOR Temperature 36.5 ??C (97.7 ??F) 09/03/2023 10:[address] Respiratory Rate - - Oxygen Saturation 97% 09/03/2023 10:40 AM WIRE BRUSH OPERATOR Inhaled Oxygen Concentration - - Weight 103 kg (227 lb) 09/03/2023 10:40 AM WIRE BRUSH OPERATOR Height 162.6 cm (5' 4 ) 09/03/2023 10:40 AM WIRE BRUSH OPERATOR Body Mass Index 38.96 09/03/2023 10:40 AM WIRE BRUSH OPERATOR documented in this encounter Progress Notes * Kendra Brody ANP - 09/03/2023 10:00 AM CST [facility] Inflammatory Bowel Disease Clinic DARNELL Manzano [...] biopsy. EGD showed mild gastritis no hpylori. [id number] daily. 10/2021 - started infliximab 12/2021 - [...] medical record. .DARNELL Manzano Division of Gastroenterology [facility] Inflammatory Bowel Disease [phone] CC: Ciera Saucedo FNP Orders Placed This Encounter CBC WITH DIFFERENTIAL COMPREHENSIVE METABOLIC PANEL C-REACTIVE PROTEIN VITAMIN D 25 HYDROXY VITAMIN B12 LEVEL QUANTIFERON TB GOLD IRON, TIBC, AND PERCENT SATURATION FERRITIN INFLIXIMAB LEVEL PANEL AMB REFERRAL TO GASTROENTEROLOGY INFLIXIMAB IV Current Outpatient Medications: INFLIXIMAB IV, Inject 500 mg by intravenous injection every 28 days., Disp: , Rfl: BRUSH OPERATOR documented in this encounter Miscellaneous Notes * Patient Instructions - Kendra Brody ANP - 09/03/2023 10:34 AM WIRE BRUSH OPERATOR Thank you for entrusting your healthcare to the physicians at [facility] Inflammatory Bowel Disease and Gastroenterology Following your visit, you may receive a survey via email or NetPayment. Kendra encourages you to respond to this confidential survey about your care. If you received excellent care, Kendra would appreciate your evaluation. Your feedback helps us to provide quality service at every visit. Thank you for your help in making our practice meet the highest expectations! [facility] Inflammatory Bowel Disease and Gastroenterology Center If you have IBD, this is the preferred office to contact. [address] [place] [address] Other important numbers to add to our contact info: After hours physician exchange: [phone] Perales: To schedule CT or MRI: Call [phone] To schedule EGD/Colon/Flex [phone] Landry/Lc: To schedule CT or MRI: Call [phone] To schedule an EGD/Colon/Flex Sig: Call [phone] IMPORTANT: The following information and instructions are [...] in 4 months with Kendra. GATO Loco BRUSH OPERATOR documented in this encounter Plan of Treatment Upcoming Encounters Date Type Department Care Team (Late st Contact Info) Description 09/22/2024 8:00 AM WIRE BRUSH OPERATOR Office Visit [facility] IBD and Gastroenterology [facility] [place] [address] [place] [address] Shreya Platt MD [address] [place] [address] Pending Results Name Type Priority Associated Diagnoses Date /Time CBC WITH DIFFERENTIAL Lab Routine Crohn's disease of small intestine with complication 09/04/2023 2:15 PM WIRE BRUSH OPERATOR COMPREHENSIVE METABOLIC PANEL Lab Routine Crohn's disease of small intestine with complication 09/04/2023 2:15 PM WIRE BRUSH OPERATOR C-REACTIVE PROTEIN Lab Routine Crohn's disease of small intestine with complication 09/04/2023 2:15 PM WIRE BRUSH OPERATOR VITAMIN D 25 HYDROXY Lab Routine Crohn's disease of small intestine with complication Fatigue, unspecified type 09/04/2023 2:15 PM WIRE BRUSH OPERATOR VITAMIN B12 LEVEL Lab Routine Crohn's disease of small intestine with complication Fatigue, unspecified type 09/04/2023 2:15 PM WIRE BRUSH OPERATOR QUANTIFERON TB GOLD Lab Routine Crohn's disease of small intestine with complication 09/04/2023 2:15 PM WIRE BRUSH OPERATOR IRON, TIBC, AND PERCENT SATURATION Lab Routine Crohn's disease of small intestine with complication 09/04/2023 2:15 PM WIRE BRUSH OPERATOR FERRITIN Lab Routine Crohn's disease of small intestine with complication Fatigue, unspecified type 09/04/2023 2:15 PM WIRE BRUSH OPERATOR INFLIXIMAB LEVEL PANEL Lab Routine Crohn's disease of small intestine with complication Fatigue, unspecified type 09/04/2023 2:15 PM WIRE BRUSH OPERATOR Scheduled Orders Name Type Priority Associated Diagnoses [...] comorbidity documented in this encounter Care Teams Warehouse And Receiving Supervisor Relationship Specialty Start Date End Date Ciera Saucedo FNP [address] [place] [address] PCP - General Nurse Practitioner Family 05/24/21 documented as of this encounter
--- OUTSIDE RECORDS SUMMARY | 2024-08-16 07:43 | XMS_ITS | Encounter Summary ---
Author Organization [facility] Address [address] [place] [address] Care Team Providers Care Deck Mechanic Name Role Phone Ciera Saucedo Primary Care Provider [phone] Encounter Details Date Type Department Care Team [...] st Contact Info) Description 09/22/2024 8:00 AM CHIEF STRATEGY OFFICER Office Visit [facility] IBD and Gastroenterology [facility] [place] [address] [facility] [address] [place] [address] Shreya Platt MD [address] [facility] [address] [place] [address] documented as of this encounter Visit Diagnoses Not on filedocumented in this encounter Care Teams Deck Mechanic Relationship Specialty Start Date End Date Ciera Saucedo FNP [address] [place] [address] PCP - General Nurse Practitioner Family 05/24/21 documented as of this encounter
--- OUTSIDE RECORDS SUMMARY | 2024-08-16 07:43 | XMS_ITS | Encounter Summary ---
Author Organization [facility] Address [address] [place] [address] Care Team Providers Care Animal Anatomist Name Role Phone Ciera Saucedo Primary Care Provider [phone] Encounter Details Date Type Department Care Team [...] Contact Info) Description 09/22/2024 8:00 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 BLEACH PLANT Office Visit [facility] IBD and Gastroenterology Center [place] [address] [facility] [address] [place] [address] Shreya Platt MD [address] [facility] [address] [place] [address] documented as of this encounter Visit Diagnoses Not on filedocumented in this encounter Care Teams Animal Anatomist Relationship Specialty Start Date End Date Ciera Saucedo FNP [address] [place] [address] PCP - General Nurse Practitioner Family 05/24/21 documented as of this encounter
--- OUTSIDE RECORDS SUMMARY | 2024-08-16 07:43 | XMS_ITS | Encounter Summary ---
Author Organization [facility] Address [address] [place] [address] Dr. Deleon: [place] [address] Care Team Providers Care Aircraft Steel Fabricator Name Role Phone Ciera Saucedo BARBI Primary Care Provider [phone] Encounter Details Date Type Department Care Team (Late st Contact Info) Description 09/05/2023 Orders Only Initial Department [address] [place] [address] Dr ZABALAN: [place] [address] Provider, Historical Social History Tobacco Use Types [...] Kendra Brody ANP - 09/10/2023 8:21 AM FLYING SQUAD SALESPERSON High IFX level NG SQUAD SALESPERSON * Result Encounter Note - Kendra Brody ANP - 09/06/2023 9:59 AM FLYING SQUAD SALESPERSON BERENICE - cannot tolerate oral iron d/t severe constipation. Will order infusions. Vit D def - start Ergo Anemia Low B12 - recommend 1 B12 injection same day as iron infusion #1 NG SQUAD SALESPERSON documented in this encounter Plan of Treatment Upcoming Encounters Date Type Department Care Team (Late st Contact Info) Description 09/22/2024 8:00 AM FLYING SQUAD SALESPERSON Office Visit [facility] IBD and Gastroenterology Center [place] [address] [place] [address] Shreya Platt MD [address] [place] [address] documented as of this encounter Procedures Procedure Name Priority Date/Time Associated Diagnosis Comments INFLIXIMAB LEVEL PANEL Routine 12:34 PM FLYING SQUAD SALESPERSON QUANTIFERON TB GOLD Routine 09/05/2023 1 2:34 PM FLYING SQUAD SALESPERSON IRON, TIBC, AND PERCENT SATURATION Routine 09/05/2023 12:34 PM FLYING SQUAD SALESPERSON CBC WITH DIFFERENTIAL Routine 09/05/2023 12:34 PM FLYING SQUAD SALESPERSON VITAMIN D 25 HYDROXY Routine 09/05/2023 12:34 PM FLYING SQUAD SALESPERSON C-REACTIVE PROTEIN Routine 09/05/2023 12 :34 PM FLYING SQUAD SALESPERSON FERRITIN Routine 09/05/2023 12:34 PM FLYING SQUAD SALESPERSON VITAMIN B12 LEVEL Routine 09/05/2023 12: 34 PM FLYING SQUAD SALESPERSON COMPREHENSIVE METABOLIC PANEL Routine 09/05/2023 12:34 PM FLYING SQUAD SALESPERSON documented in this encounter Results * INFLIXIMAB LEVEL PANEL (09/05/2023 12:34 PM FLYING SQUAD SALESPERSON) INFLIXIMAB LEVEL, IBD >50.0 mcg/mL [facility], INFLIXIMAB AB, IBD <10 <10 AU Q [facility], INFLIXIMAB INTERPRETATION SEE NOTE [facility], Comment: The infliximab and infliximab anti-drug antibody [...] clinical equivalence studies, the FDA and the [place] [employer] advocate applying infliximab clinical guidance to the use of its biosimilars. The [place] [employer] recommends optimal infliximab trough concentration [...] treating healthcare professional should refer to the alum mixer's approved labeling for prescribing, warnings, side effects and other important information. INFLIXIMAB COMMENT SEE NOTE Q [facility], Comment: This test was developed and its analytical performance characteristics have been determined by [facility]. It has not been cleared or approved by FDA. This assay has been validated pursuant to the CLIA regulations and is used for clinical purposes. For additional information, please refer to https://education.SeeFuture/faq/CZB717 (This link is being provided for informational/educational purposes only.) FASTING:NO FASTING: NO Test Performed at: [facility], [address] [place] [address] ??[phone] Aaliyah Esquivel MD,PhD,FATOU 09/05/2023 12:3 4 PM FLYING SQUAD SALESPERSON 09/05/2023 12:36 PM FLYING SQUAD SALESPERSON Kendra Brody [facility] CHEMISTRY ORDER JULIAN [facility] [phone] [facility], [address] [place] [address] * QUANTIFERON TB GOLD (09/05/2023 12:34 PM FLYING SQUAD SALESPERSON) QUANTIFERON TB GOLD PLUS NEGATIVE NEGATIVE [facility] [...] T-lymphocytes. For additional information, please refer to https://education.SeeFuture/faq/ANC550 (This link is being provided for informational/ educational purposes only.) FASTING:NO FASTING: NO Test Performed at: [facility] [address] [place] [address] ??[phone] Marce Pittman MD 09/05/2023 12:3 4 PM FLYING SQUAD SALESPERSON 09/05/2023 12:36 PM FLYING SQUAD SALESPERSON Kendra Brody ANP CHEMISTRY ORDER JULIAN [facility] [phone] [facility] [address] [place] [address] * (ABNORMAL) C-REACTIVE PROTEIN (09/05/2023 12:34 PM FLYING SQUAD SALESPERSON) CRP 10.8(H) <8.0 mg/L [facility] Comment: FASTING:NO FASTING: NO Test Performed at: [facility] [address] [place], [place] ??[address] Marce Pittman MD 09/05/2023 12:3 4 PM FLYING SQUAD SALESPERSON 09/05/2023 12:36 PM FLYING SQUAD SALESPERSON Kendra Brody ANP CHEMISTRY ORDER JULIAN Performing Organization Address City/[facility]/ZIP Co de Phone Number [facility] [phone] [facility] [address] [place] [address] * (ABNORMAL) VITAMIN D 25 HYDROXY (09/05/2023 12:34 PM FLYING SQUAD SALESPERSON) VITAMIN D, 25 OH, TOTAL 13(L) 30 - 100 ng/mL [facility] Comment: Vitamin D Status ? 25-OH Vitamin D: Deficiency: ?<20 ng/mL Insufficiency: ? 20 - 29 ng/mL Optimal: ? > or = 30 ng/mL For 25-OH Vitamin D testing on patients on D2-supplementation and patients for whom quantitation of D2 and D3 fractions is required, the [facility](TM) 25-OH VIT D, (D2,D3), LC/MS/MS is recommended: order code 80920 (patients >2yrs). See Note 1 Note 1 For additional information, please refer to http://education.Auctions by Wallace.Rainier Software/faq/OBJ692 (This link is being provided for informational/ educational purposes only.) FASTING:NO FASTING: NO Test Performed at: [facility] [address] [place], [place] ??[address] Marce Pittman MD 09/05/2023 12:3 4 PM FLYING SQUAD SALESPERSON 09/05/2023 12:36 PM FLYING SQUAD SALESPERSON Kendra Brody ANP CHEMISTRY ORDER JULIAN Performing Organization Address City/[facility]/ZIP Co de Phone Number [facility] [phone] [facility] [address] * VITAMIN B12 LEVEL (09/05/2023 12:34 PM FLYING SQUAD SALESPERSON) VITAMIN B12 336 200 - 1100 pg/mL [facility] Comment: Please Note: Although the reference range for vitamin B12 is 200-1100 pg/mL, it has been reported that between 5 and 10% of patients with values between 200 and 400 pg/mL may experience neuropsychiatric and hematologic abnormalities due to occult B12 deficiency; less than 1% of patients with values above 400 pg/mL will have symptoms. Test Performed at: [employer] [address] ??[phone] Marce Pittman MD 09/05/2023 12:3 4 PM FLYING SQUAD SALESPERSON 09/05/2023 12:36 PM FLYING SQUAD SALESPERSON Kendra Brody ANP CHEMISTRY ORDER JULIAN Performing Organization Address City/[facility]/ZIP Co de Phone Number [facility] [phone] [address] * (ABNORMAL) FERRITIN (09/05/2023 12:34 PM FLYING SQUAD SALESPERSON) Pathologist [facility] FERRITIN 6(L) 16 - 154 ng/mL [facility] Comment: Test Performed at: [facility] ??[address] Marce Pittman MD 09/05/2023 12:3 4 PM FLYING SQUAD SALESPERSON 09/05/2023 12:36 PM FLYING SQUAD SALESPERSON Kendra Brody ANP CHEMISTRY ORDER JULIAN [facility] [phone] [address] * (ABNORMAL) IRON, TIBC, AND PERCENT SATURATION (09/05/2023 12:34 PM FLYING SQUAD SALESPERSON) Pathologist [facility] IRON 18(L) 40 - 190 mcg/dL [facility] TIBC 422 250 - 450 mcg/dL (calc) [facility] IRON % SATURATION 4(L) 16 - 45 % (calc) [facility] Comment: Test Performed at: [facility] ??[phone] Marce Pittman MD 09/05/2023 12:3 4 PM FLYING SQUAD SALESPERSON 09/05/2023 12:36 PM FLYING SQUAD SALESPERSON Kendra Brody ANP CHEMISTRY ORDER JULIAN [facility] [phone] [address] * COMPREHENSIVE METABOLIC PANEL (09/05/2023 12:34 PM FLYING SQUAD SALESPERSON) GLUCOSE 83 65 - 139 mg/dL [facility] Comment: ? Non-fasting reference interval BUN 14 7 - 25 mg/dL [facility] CREATININE 0.67 0.50 - 0.96 mg/dL [facility] GFR 125 > OR = 60 mL/min/1. 73m2 [facility] [place] BUN/CREAT RATIO SEE NOTE: 6 - 22 (calc) [facility] Comment: ?? Not Reported: BUN and Creatinine are within ?? reference range. ? SODIUM 137 135 - 146 mmol/L [facility] [place] POTASSIUM 4.0 3.5 - 5.3 mmol/L [facility] CHLORIDE 101 98 - 110 mmol/L [facility] CO2 29 20 - 32 mmol/L [facility] [place] CALCIUM 8.9 8.6 - 10.2 mg/dL [facility] [place] TOTAL PROTEIN 7.5 6.1 - 8.1 g/dL [facility] [place] ALBUMIN 4.3 3.6 - 5.1 g/dL [facility] GLOBULIN 3.2 1.9 - 3.7 g/dL (calc) [facility] ALBUMIN/GLOBULIN RATIO 1.3 1.0 - 2.5 (calc) [facility] BILIRUBIN TOTAL 0.3 0.2 - 1.2 mg/dL [facility] ALKALINE PHOSPHATASE 76 31 - 125 U/L [facility] AST 11 10 - 30 U/L [facility] ALT 15 6 - 29 U/L [facility] Comment: FASTING:NO FASTING: NO Test Performed at: [place] [address] [place] ??[phone] KerlineLaurahieu Shannan Pittman 09/05/2023 12:3 4 PM FLYING SQUAD SALESPERSON 09/05/2023 12:36 PM FLYING SQUAD SALESPERSON Kendra Brody ANP CHEMISTRY ORDER JULIAN [facility] [phone] [facility] [address] [place] [address] * (ABNORMAL) CBC WITH DIFFERENTIAL (09/05/2023 12:34 PM FLYING SQUAD SALESPERSON) WBC 7.7 3.8 - 10.8 Thousand/ uL [facility] [place] RBC 4.41 3.80 - [...] Comment: FASTING:NO FASTING: NO Test Performed at: [place] [address] [place] ??[address] KerlineHakanhieu Pittman 09/05/2023 12:3 4 PM FLYING SQUAD SALESPERSON 09/05/2023 12:36 PM FLYING SQUAD SALESPERSON Kendra Brody ANP HEMATOLOGY STAN [facility]EN [facility] [phone] [place] [address] [place] [address] documented in this encounter Visit Diagnoses Not on filedocumented in this encounter Care Teams Aircraft Steel Fabricator Relationship Specialty Start Date End Date Ciera Saucedo FNP [address] [place] [address] PCP - General Nurse Practitioner Family 05/24/21 documented as of this encounter
--- OUTSIDE RECORDS SUMMARY | 2024-08-16 07:43 | XMS_ITS | Encounter Summary ---
Author Organization [facility] Address 5 [facility] Attn: [place] [address] Care Team Providers Care Cable Systems Installer Name Role Phone Ciera Saucedo BARBI Primary Care Provider [phone] Encounter Details Date Type Department Care Team [...] st Contact Info) Description 09/22/2024 8:[address]QUIPMENT OPERATOR Office Visit [facility]astro[facility]ology [facility] [place] [address] [place] [address] Shreya Platt MD [address] [place] [address] documented as of this encounter Visit Diagnoses Not on filedocumented in this encounter Care Teams Cable Systems Installer Relationship Specialty Start Date End Date Ciera Saucedo FNP [address] [employer] [place] [address] PCP - General Nurse Practitioner Family 05/24/21 documented as of this encounter
--- OUTSIDE RECORDS SUMMARY | 2024-08-16 07:43 | XMS_ITS | Encounter Summary ---
Author Organization [facility] Address 5 [facility] Attn: [place] [address] Care Team Providers Care Furniture Cleaner Name Role Phone Ciera Saucedo BARBI Primary Care Provider [phone] Encounter Details Date Type Department Care Team [...] st Contact Info) Description 09/22/2024 8:00 AM PUBLIC RELATIONS STUDIES DIRECTOR Office Visit [facility] IBD and Gastroenterology [facility] [place] [address] [place] [address] Shreya Platt MD [address] [place] [address] documented as of this encounter Visit Diagnoses Not on filedocumented in this encounter Care Teams Furniture Cleaner Relationship Specialty Start Date End Date Ciera Saucedo FNP [address] [place] [address] PCP - General Nurse Practitioner Family 05/24/21 documented as of this encounter
--- OUTSIDE RECORDS SUMMARY | 2024-08-16 07:43 | XMS_ITS | Encounter Summary ---
Author Organization [facility] Address [address] [place] [address] Care Team Providers Care Metalizer Name Role Phone Ciera Saucedo Primary Care Provider [phone] Encounter Details Date Type Department Care Team [...] st Contact Info) Description 09/22/2024 8:00 AM ELECTRON BEAM WELDER SETTER Office Visit [facility]astroenterology [facility] [place] [address] [facility] [address] [place] [address] Shreya Platt MD [address] [facility] [address] [place] [address] documented as of this encounter Visit Diagnoses Not on filedocumented in this encounter Care Teams Metalizer Relationship Specialty Start Date End Date Ciera Saucedo FNP [address] [place] [address] PCP - General Nurse Practitioner Family 05/24/21 documented as of this encounter
--- OUTSIDE RECORDS SUMMARY | 2024-08-16 07:43 | XMS_ITS | Encounter Summary ---
Author Organization [facility] Address [address] [place] [address] Care Team Providers Care Pension Adviser Name Role Phone Ciera Saucedo BARBI Primary Care Provider [phone] Reason for Visit * Reason Onset Date Comments Conflict with pt a nd Abd scan 07/26/2022 Tech from [facility] ([phone]) contacted clinic> She talked to pt regarding [...] (Late st Contact Info) Description 07/26/2022 Telephone [facility] [address] [address] Shreya Platt MD [address] [facility] 100 [place] [address] Conflict with pt and Abd scan (Tech from [facility] ([phone]) contacted clinic> She talked to pt regarding [...] Coronavirus/COVID-19? No / Unsure 07/26/2022 5:13 PM DOCTOR ASSISTANT documented as of this encounter Miscellaneous Notes * Addendum Note - Anne Marie Pike - 08/01/2022 12:31 PM CSTAddended by: ANNE MARIE PIKE on: 08/01/2022 12:31 PM Modules accepted: Orders OR ASSISTANT * Telephone Encounter - Anne Marie Pike - 08/01/2022 12:29 PM CST Called patient and went over Dr Platt's response. Patient states her pain is in the lower area,pelvic area so is not sure if the RUQ would be worth doing. She is 14 weeks OR ASSISTANT * Telephone Encounter - Anne Marie Pike - 08/01/2022 12:29 PM CST Images from the original note were not included. Shreya Platt MD You 4 days ago She can just get the RUQ scan for now. Shreya Méndez OR ASSISTANT * Telephone Encounter - Barbra Caba RN - 07/26/2022 2:18 PM CST Love from [facility] ([phone]) contacted clinic> She talked to pt regarding scan for RUQ and RLQ this Sunday at 11:15am. Pt is 13 weeks . Tech states RLQ scan can not be done since she is . Would need to be referred to Lab for RLQ testing. Please call her back with additional instructions. OR ASSISTANT documented in this encounter Plan of Treatment Upcoming Encounters Date Type Department Care Team (Late st Contact Info) Description 09/22/2024 8:00 AM DOCTOR ASSISTANT Office Visit [facility] [place] [address] [place] [address] Shreya Platt MD [address] [place] [address] documented as of this encounter Visit Diagnoses Diagnosis Crohn's disease of small intestine with complication- Primary Regional enteritis of small intestine documented in this encounter Care Teams Pension Adviser Relationship Specialty Start Date End Date Ciera Saucedo FNP [address] [place] [address] PCP - General Nurse Practitioner Family 05/24/21 documented as of this encounter
--- OUTSIDE RECORDS SUMMARY | 2024-08-16 07:43 | XMS_ITS | Encounter Summary ---
Author Organization [facility] Address [address] [place] [address] Care Team Providers Care Morning Nanny Name Role Phone Ciera Saucedo Primary Care Provider [phone] Encounter Details Date Type Department Care Team [...] st Contact Info) Description 09/22/2024 8:00 AM RESIDENTIAL PROGRAM MANAGER Office Visit [facility]astroenterology [facility] [place] [address] [facility] [address] [place] [address] Shreya Platt MD [address] [facility] 100 [place] [address] documented as of this encounter Visit Diagnoses Not on filedocumented in this encounter Care Teams Morning Nanny Relationship Specialty Start Date End Date Ciera Saucedo FNP [address] [place] [address] PCP - General Nurse Practitioner Family 05/24/21 documented as of this encounter
--- OUTSIDE RECORDS SUMMARY | 2024-08-16 07:43 | XMS_ITS | Encounter Summary ---
Author Organization [facility] Address [address] [place] [address] Care Team Providers Care Packing Room Inspector Name Role Phone Ciera Saucedo BARBI Primary Care Provider Encounter Details Date Type Department Care Team (Late st Contact Info) Description 05/07/2023 Chart Note [facility] Gastro[facility] [address] [facility] 100 [place] [address] Shreya Platt MD [address] [place] [address] Social History Tobacco Use Types [...] of this encounter Progress Notes * Shreya Paltt MD - 05/07/2023 4:46 PM CDT Called by [facility] triage for critical lab of ANC 0.3. [...] Contact Info) Description 09/22/2024 8:00 AM DATA COLLECTION SPECIALIST Office Visit [facility] IBD [facility] Gastroenterology [facility] [place] [address] [place] [address] Shreya Platt MD [address] [place] [address] documented as of this encounter Visit Diagnoses Not on filedocumented in this encounter Care Teams Packing Room Inspector Relationship Specialty Start Date End Date Ciera Saucedo FNP [address] [place] [address] PCP - General Nurse Practitioner Family 05/24/21 documented as of this encounter
--- OUTSIDE RECORDS SUMMARY | 2024-08-16 07:43 | XMS_ITS | Encounter Summary ---
Author Organization [facility] Address [address] [place] [address] Care Team Providers Care Laminating Machine Feeder Name Role Phone Ciera Saucedo Primary Care Provider [phone] Encounter Details Date Type Department Care Team [...] st Contact Info) Description 09/22/2024 8:00 AM PHLEBOTOMY LAB ASSISTANT Office Visit [facility] [place] [address] [facility] [address] [place] [address] Shreya Platt MD [address] [facility] 100 [place] [address] documented as of this encounter Visit Diagnoses Not on filedocumented in this encounter Care Teams Laminating Machine Feeder Relationship Specialty Start Date End Date Ciera Saucedo FNP [address] [place] [address] PCP - General Nurse Practitioner Family 05/24/21 documented as of this encounter
--- OUTSIDE RECORDS SUMMARY | 2024-08-16 07:43 | XMS_ITS | Encounter Summary ---
Author Organization [facility] Address [address] [place] [address] Care Team Providers Care Chief Nurse Anesthetist Name Role Phone Ciera Saucedo BARBI Primary Care Provider [phone] Encounter Details Date Type Department Care Team (Late st Contact Info) Description 06/20/2023 Abstract [facility] Oncology and Hematology - Ck [address] [facility] [address] [place] [address] Alli Cao MD [address] [facility] [address] [place] [address] Social History Tobacco Use Types [...] st Contact Info) Description 09/22/2024 8:00 AM FLAVORING MACHINE OPERATOR Office Visit [facility] IBD [facility] Gastroenterology [facility] [place] [address] [facility] 180 [place] [address] Shreya Platt MD [address] [facility] 100 [place] [address] documented as of this encounter Visit Diagnoses Not on filedocumented in this encounter Care Teams Chief Nurse Anesthetist Relationship Specialty Start Date End Date Ciera Saucedo FNP [address] [place] [address] PCP - General Nurse Practitioner Family 05/24/21 documented as of this encounter
--- OUTSIDE RECORDS SUMMARY | 2024-08-16 07:43 | XMS_ITS | Encounter Summary ---
Author Organization [facility] Address [address] [place] [address] Care Team Providers Care Circulation Director Name Role Phone Ciera Saucedo BARBI Primary Care Provider [phone] Reason for Visit * Reason Comments Follow Up Encounter Details Date Type Department Care Team (Latest Contact Info) Description 02/21/2023 12:00 PM CDT Office Visit [facility] IBD and Gastroenterology Center [address] [facility] 100 [place] [address] Shreya Platt MD [address] [facility] 100 [place] [address] Crohn's disease of small intestine [...] Platt MD - 02/21/2023 12:23 PM CDT [facility] Inflammatory Bowel Disease Clinic Shreya [...] biopsy. EGD showed mild gastritis no hpylori. [id number] daily. 10/2021 - started infliximab 12/2021 - ifx level 23, no ab. CRP 49 01/2022 - CTE normal. Sister has crohn's and I see her as well. She takes entyvio. (failed remicade and stelara) I have reviewed outside records today as part of this visit from [facility] Past Medical History: I updated the electronic [...] Issa Mccall MD OB Shreya Platt MD [facility] Gastroenterology and Inflammatory Bowel Disease [...] entrusting your healthcare to the physicians at [facility] Inflammatory Bowel Disease and Gastroenterology Following your visit, you may receive a survey via email or [employer]. Dr. Platt encourages you to respond to this confidential survey about your care. If you received excellent care, Dr. Plattwould appreciate your evaluation. Your feedback helps us to provide quality service at every visit.Thank you for your help in making our practice meet the highest expectations! [facility] Inflammatory Bowel Disease and Gastroenterology Center [address] [place] [address] Other important numbers to add to our contact info: After hours physician exchange: [phone] or MRI: Call [phone] To schedule an EGD/Colonoscopy/Flex Sig: Call [phone] IMPORTANT: The following information and instructions are from your visit today: Repeat CT enterography if pain recurs. Continue Protonix 40mg twice daily. Continue infliximab 5mg/kg q 8 weeks Return in 4 months. Shreya Platt MD documented in this encounter Plan of Treatment Upcoming Encounters Date Type Department Care Team (Late st Contact Info) Description 09/22/2024 8:00 AM ELECTRICAL SIGN WIRER HELPER Office Visit [facility] IBD and Gastroenterology [facility] [address] [place] [address] Shreya Platt MD [address] [facility] [address] [place] [address] documented as of this encounter Visit Diagnoses Diagnosis Crohn's disease of small intestine with complication- Primary Regional enteritis of small intestine documented in this encounter Care Teams Circulation Director Relationship Specialty Start Date End Date Ciera Saucedo FNP [address] [place] [address] PCP - General Nurse Practitioner Family 05/24/21 documented as of this encounter
--- OUTSIDE RECORDS SUMMARY | 2024-08-16 07:43 | XMS_ITS | Encounter Summary ---
Author Organization [facility] Address [address] [place] [address] Care Team Providers Care Head Porter Baggage Name Role Phone Ciear Saucedo Primary Care Provider [phone] Encounter Details Date Type Department Care Team [...] st Contact Info) Description 09/22/2024 8:00 AM DRAFTER MECHANICAL Office Visit [facility] IBD and Gastroenterology [facility] [place] [address] [facility] [address] [place] [address] Shreya Platt MD [address] [facility] 100 [place] [address] documented as of this encounter Visit Diagnoses Not on filedocumented in this encounter Care Teams Head Porter Baggage Relationship Specialty Start Date End Date Ciera Saucedo FNP [address] [employer] [place] [address] PCP - General Nurse Practitioner Family 05/24/21 documented as of this encounter
--- OUTSIDE RECORDS SUMMARY | 2024-08-16 07:43 | XMS_ITS | Encounter Summary ---
Author Organization [facility] Address [address] [place] [address] Care Team Providers Care Sales Support Assistant Name Role Phone Ciera Saucedo Primary Care Provider [phone] Encounter Details Date Type Department Care Team [...] st Contact Info) Description 09/22/2024 8:00 AM CONSTRUCTION TEACHER Office Visit [facility] Gastroenterology [facility] [place] [address] [facility] [address] [place] [address] Shreya Platt MD [address] [facility] [address] [place] [address] documented as of this encounter Visit Diagnoses Not on filedocumented in this encounter Care Teams Sales Support Assistant Relationship Specialty Start Date End Date Ciera Saucedo FNP [address] [employer] [place] [address] PCP - General Nurse Practitioner Family 05/24/21 documented as of this encounter
--- OUTSIDE RECORDS SUMMARY | 2024-08-16 07:43 | XMS_ITS | Encounter Summary ---
Author Organization [facility] Address 5 [facility] Attn: [place] [address] Care Team Providers Care Hydroponics Worker Name Role Phone Ciera Saucedo BARBI Primary Care Provider [phone] Encounter Details Date Type Department Care Team [...] st Contact Info) Description 09/22/2024 8:00 AM TRIMMER SORTER Office Visit [facility] IBD and Gastroenterology Center [place] [address] [place] [address] Shreya Platt MD [address] [place] [address] documented as of this encounter Visit Diagnoses Not on filedocumented in this encounter Care Teams Hydroponics Worker Relationship Specialty Start Date End Date Ciera Saucedo FNP [address] [place] [address] PCP - General Nurse Practitioner Family 05/24/21 documented as of this encounter
--- OUTSIDE RECORDS SUMMARY | 2024-08-16 07:43 | XMS_ITS | Encounter Summary ---
Author Organization [facility] Address [address] [place] [address] Care Team Providers Care Pm Head Cook Name Role Phone SadiafredaÁngela BARBI Primary Care Provider [phone] Reason for Referral * Outpatient Services (Routine) - Closed Specialty Diagnoses / Procedures Referred By Contac t Referred To Contact Gastroenterology Diagnoses Iron deficiency anemia, unspecified iron deficiency anemia type Procedures INFUSION THERAPY Kendra Brody ANP [address] [place] [address] [facility] [address] [place] [address] Referral ID Status Reason Start Date Expiration Date Visits Re quested Visits Authorized [id number] Closed 09/06/2023 10/06/2024 1 1 CASE DEVELOPER Encounter Details Date Type Department Care Team (Late st Contact Info) Description 09/06/2023 Orders Only [facility] IBD [facility] Gastroenterology [facility] [address] [place] [address] Kendra Brody ANP [address] [place] [address] Fatigue, unspecified type (Primary Dx); [...] st Contact Info) Description 09/22/2024 8:00 AM TEST CASE DEVELOPER Office Visit [facility]astro[facility] [place] [address] [facility] [facility] [address] [place] [address] Shreya Platt MD [address] [facility] [address] [place] [address] documented as of this encounter Visit Diagnoses Diagnosis Fatigue, unspecified type- Primary Iron deficiency anemia, unspecified iron deficiency anemia type Vitamin D deficiency Unspecified vitamin D deficiency documented in this encounter Care Teams Pm Head Cook Relationship Specialty Start Date End Date Ciera Saucedo FNP [address] [place] [address] PCP - General Nurse Practitioner Family 05/24/21 documented as of this encounter
--- OUTSIDE RECORDS SUMMARY | 2024-08-16 07:43 | XMS_ITS | Encounter Summary ---
Author Organization [facility] Address [address] [place] [address] Care Team Providers Care Continuous Wave Operator Name Role Phone Ciera Saucedo BARBI Primary Care Provider [phone] Reason for Visit * Reason Onset Date Comments infusion refusal 2023 Encounter Details Date Type Department Care Team (Late st Contact Info) Description 2023 Telephone [facility] IBD and Gastroenterology Center [address] [address] Kendra Brody, DARNELL [address] [facility] [address] [place] [address] infusion refusal Social History Tobacco [...] Michelle RN - 2023 9:14 AM CST [facility] home infusion called to make us [...] call with any other questions or concerns. ER IN HAND documented in this encounter Plan of Treatment Upcoming Encounters Date Type Department Care Team (Late st Contact Info) Description 09/22/2024 8:00 AM DRAWER IN HAND Office Visit [facility] IBD and Gastroenterology Center [place] [address] [facility] [address] [place] [address] Shreya Platt MD [address] [facility] [address] [place] [address] documented as of this encounter Visit Diagnoses Not on filedocumented in this encounter Care Teams Continuous Wave Operator Relationship Specialty Start Date End Date Ciera Saucedo FNP [address] [place] [address] PCP - General Nurse Practitioner Family 05/24/21 documented as of this encounter
--- OUTSIDE RECORDS SUMMARY | 2024-08-16 07:43 | XMS_ITS | Encounter Summary ---
Author Organization [facility] Address [address] [place] [address] Care Team Providers Care Agribusiness Professor Name Role Phone Ciera Saucedo Primary Care [...] Contact Info) Description 09/22/2024 8:00 AM BUSINESS CONTINUITY STRATEGY DIRECTOR Office Visit [facility] IBD and Gastroenterology Center [place] [address] [facility] [address] [place] [address] Shreya Platt MD [address] [facility] [address] [place] [address] documented as of this encounter Visit Diagnoses Not on filedocumented in this encounter Care Teams Agribusiness Professor Relationship Specialty Start Date End Date Ciera Saucedo FNP [address] [place] [address] PCP - General Nurse Practitioner Family 05/24/21 documented as of this encounter
--- OUTSIDE RECORDS SUMMARY | 2024-08-16 07:43 | XMS_ITS | Encounter Summary ---
Author Organization [facility] Address [address] [place] [address] Care Team Providers Care Coal Equipment Operator Name Role Phone Ciera Saucedo BARBI Primary Care Provider [phone] Reason for Visit * Reason Onset Date Comments GI Problem 05/07/2023 Encounter Details Date Type Department Care Team (Late st Contact Info) Description 05/07/2023 Telephone [facility] IBD and Gastroenterology Center [address] [address] Shreya Platt MD [address] [facility] 100 [place] [address] GI Problem Social History Tobacco [...] - 05/07/2023 10:32 AM CDT Namrata with [facility] home infusion called with report patient has [...] st Contact Info) Description 09/22/2024 8:00 AM EYELET MACHINE OPERATOR Office Visit [facility] IBD and Gastroenterology Center [place] [address] [place] [address] Shreya Platt MD [address] [place] [address] documented as of this encounter Visit Diagnoses Not on filedocumented in this encounter Care Teams Coal Equipment Operator Relationship Specialty Start Date End Date Ciera Saucedo FNP [address] [place] [address] PCP - General Nurse Practitioner Family 05/24/21 documented as of this encounter
--- OUTSIDE RECORDS SUMMARY | 2024-08-16 07:43 | XMS_ITS | Encounter Summary ---
Author Organization [facility] Address [address] [place] [address] Care Team Providers Care Human Resources Leader Name Role Phone Ciera Saucedo BARBI Primary Care Provider [phone] Reason for Visit * Reason Comments Follow Up Encounter Details Date Type Department Care Team (Latest Contact Info) Description 11/06/2022 8:20 AM CDT Office Visit [facility] [address] [facility] 100 [place] [address] Shreya Platt MD [address] [facility] [address] [place] [address] Crohn's disease of small intestine [...] Platt MD - 11/06/2022 8:20 AM CDT [facility] Shreya [...] biopsy. EGD showed mild gastritis no hpylori. [id number] daily. 10/2021 - started infliximab 12/2021 - [...] entrusting your healthcare to the physicians at [facility] Disease [facility] Gastroenterology Following your visit, you may receive a survey via email or [employer]. Dr. Platt encourages you to respond to this confidential survey about your care. If you received excellent care, Dr. Plattwould appreciate your evaluation. Your feedback helps us to provide quality service at every visit.Thank you for your help in making our practice meet the highest expectations! [facility] [address] [place] [address] Other important numbers to add to our contact info: After hours physician exchange: [phone] or MRI: Call [phone] To schedule an EGD/Colonoscopy/Flex Sig: Call [phone] IMPORTANT: The following information and instructions are from your visit today: Continue Protonix 40mg twice daily. Continue infliximab 5mg/kg q 8 weeks, next dose 10/19 Return to clinic in January after delivery. Shreya Platt MD documented in this encounter Plan of Treatment Upcoming Encounters Date Type Department Care Team (Late st Contact Info) Description 09/22/2024 8:00 AM ELECTRICAL PARTS RECONDITIONER Office Visit [facility] [place] [address] [facility] [address] [place] [address] Shreya Platt MD [address] [place] [address] documented as of this encounter Visit Diagnoses Diagnosis Crohn's disease of small intestine with complication- Primary Regional enteritis of small intestine documented in this encounter Care Teams Human Resources Leader Relationship Specialty Start Date End Date Ciera Saucedo FNP [address] [place] [address] PCP - General Nurse Practitioner Family 05/24/21 documented as of this encounter
--- OUTSIDE RECORDS SUMMARY | 2024-08-16 07:43 | XMS_ITS | Encounter Summary ---
Author Organization [facility] Address 5 [facility] Attn: [place] [address] Care Team Providers Care Front Counter Clerk Name Role Phone Ciera Saucedo BARBI Primary Care Provider [phone] Encounter Details Date Type Department Care Team [...] Coronavirus/COVID-19? No / Unsure 07/05/2022 9:47 AM OIL WELL SERVICES SUPERVISOR documented as of this encounter Plan of Treatment Upcoming Encounters Date Type Department Care Team (Late st Contact Info) Description 09/22/2024 8:00 AM OIL WELL SERVICES SUPERVISOR Office Visit [facility]astro[facility] [place] [address] [place] [address] Shreya Platt MD [address] [place] [address] documented as of this encounter Visit Diagnoses Not on filedocumented in this encounter Care Teams Front Counter Clerk Relationship Specialty Start Date End Date Ciera Saucedo FNP [address] [place] [address] PCP - General Nurse Practitioner Family 05/24/21 documented as of this encounter
--- OUTSIDE RECORDS SUMMARY | 2024-08-16 07:43 | XMS_ITS | Encounter Summary ---
Author Organization [facility] Address 5 [facility] Attn: [place] [address] Care Team Providers Care Cooling Tower Technician Name Role Phone Ciera Saucedo BARBI Primary Care Provider [phone] Encounter Details Date Type Department Care Team [...] Coronavirus/COVID-19? No / Unsure 07/26/2022 5:13 PM NATURAL RESOURCES ENGINEER documented as of this encounter Plan of Treatment Upcoming Encounters Date Type Department Care Team (Late st Contact Info) Description 09/22/2024 8:00 AM NATURAL RESOURCES ENGINEER Office Visit [facility]astroenterology [facility] [place] [address] [place] [address] Shreya Platt MD [address] [place] [address] documented as of this encounter Visit Diagnoses Not on filedocumented in this encounter Care Teams Cooling Tower Technician Relationship Specialty Start Date End Date Ciera Saucedo FNP [address] [place] [address] PCP - General Nurse Practitioner Family 05/24/21 documented as of this encounter
--- OUTSIDE RECORDS SUMMARY | 2024-08-16 07:43 | XMS_ITS | Encounter Summary ---
Author Organization [facility] Address [address] [place] [address] Care Team Providers Care Web Site Project Manager Name Role Phone Ciera Saucedo BARBI Primary Care Provider [phone] Reason for Visit * Reason Onset Date Comments Medication Problem 09/26/2023 Encounter Details Date Type Department Care Team (Late st Contact Info) Description 09/26/2023 Telephone [facility] [address] [facility] 100 [place] [address] Kendra Brody, DARNELL [address] [facility] 100 [place] [address] Medication Problem Social History Tobacco [...] Miscellaneous Notes * Telephone Encounter - Gay Maidson RN - 09/26/2023 3:04 PM CST [facility] infusion called to make office aware they cannot get auth for b12 injection and therefore they cannot administer it. Patient notified of same and that she can come to [place] office to get it, or she can contact her PCP and see if they can do it for her. Verbalizes understanding STANT CORPORATE SECRETARY documented in this encounter Plan of Treatment Upcoming Encounters Date Type Department Care Team (Late st Contact Info) Description 09/22/2024 8:00 AM ASSISTANT CORPORATE SECRETARY Office Visit [facility] [place] [address] [place] [address] Shreya Platt MD [address] [place] [address] [place] [address] documented as of this encounter Visit Diagnoses Not on filedocumented in this encounter Care Teams Web Site Project Manager Relationship Specialty Start Date End Date Ciera Saucedo FNP [address] [place] [address] PCP - General Nurse Practitioner Family 05/24/21 documented as of this encounter
--- OUTSIDE RECORDS SUMMARY | 2024-08-16 07:43 | XMS_ITS | Encounter Summary ---
Author Organization [facility] Address [address] [place] [address] Care Team Providers Care Cook Mayonnaise Name Role Phone Ciera Saucedo Primary Care [...] st Contact Info) Description 09/22/2024 8:00 AM BUTCHER APPRENTICE Office Visit [facility] [place] [address] [facility] [address] [place] [address] Shreya Platt MD [address] [facility] 100 [place] [address] documented as of this encounter Visit Diagnoses Not on filedocumented in this encounter Care Teams Cook Mayonnaise Relationship Specialty Start Date End Date Ciera Saucedo FNP [address] [place] [address] PCP - General Nurse Practitioner Family 05/24/21 documented as of this encounter
--- OUTSIDE RECORDS SUMMARY | 2024-08-16 07:43 | XMS_ITS | Encounter Summary ---
Author Organization [facility] Address [address] [place] [address] Care Team Providers Care Rolling Chair Pusher Name Role Phone Ciera Saucedo BARBI Primary Care Provider [phone] Reason for Visit * Reason Comments Follow Up Encounter Details Date Type Department Care Team (Late st Contact Info) Description 03/27/2022 8:30 AM CDT Office Visit [facility]astroenterology [facility] [address] [address] Kendra Brody, DARNELL [address] [facility] 100 [place] [address] Crohn's disease of small intestine [...] Brody ANP - 03/27/2022 8:30 AM CDT [facility] GATO Loco Chief [...] today as part of this visit from [facility] Past Medical History: I updated [...] APPLICABLE 12/30/2021 Last Endoscopies: 10/2020 EGD/Colonoscopy at [facility]. Records show ileitis and gastritis. Last Imaging: [...] in the medical record. Kendra Brody, DARNELL [facility] and Inflammatory Bowel Disease CC: [...] entrusting your healthcare to the physicians at [facility] Following your visit, you may receive a survey via email or [employer]. Kendra encourages you to respond to this confidential survey about your care. If you received excellent care, Kendra would appreciate your evaluation. Your feedback helps us to provide quality service at every visit. Thank you for your help in making our practice meet the highest expectations! [facility] If you have IBD, this is the preferred office to contact. [address] [place] [address] Other important numbers to add to our contact info: After hours physician exchange: [phone] or MRI: Call [phone] To schedule an EGD/Colon/Flex Sig: Call [phone] IMPORTANT: The following information and instructions are [...] st Contact Info) Description 09/22/2024 8:00 AM MACHINE HOOP MAKER HELPER Office Visit [facility] [place] [address] [facility] [address] [place] [address] Shreya Platt MD [address] [place] [address] [place] [address] documented as of this encounter [...] 11:29 AM CDT) CRP 9.4(H) <8.0 mg/L [facility] Comment: Test Performed at: [facility] [address] [place], [place] ??[address] Yonny Connors D.O., MPH Blood 04/12/2022 11:2 9 AM CDT 04/12/2022 11:30 AM CDT Kendra Brody ANP CHEMISTRY ORDER JULIAN [facility] [phone] [facility] [address] [place] [address] * COMPREHENSIVE METABOLIC PANEL (04/12/2022 11:29 AM CDT) GLUCOSE 82 65 - 99 mg/dL [facility] Comment: ? Fasting reference interval BUN 8 7 - 25 mg/dL [facility] CREATININE 0.67 0.50 - 0.96 mg/dL [facility] GFR 126 > OR = 60 mL/min/1. 73m2 [facility] Comment: The eGFR is based on the CKD-EPI 2020 equation. To calculate the new eGFR from a previous Creatinine or Cystatin C result, go to https://www.kidney.org/professionals/ kdoqi/gfr%5Fcalculator BUN/CREAT RATIO NOT APPLICABLE 6 - 22 (calc) [facility] SODIUM 138 135 - 146 mmol/L [facility] POTASSIUM 4.0 3.5 - 5.3 mmol/L [facility] CHLORIDE 103 98 - 110 mmol/L [facility] CO2 26 20 - 32 mmol/L [facility] CALCIUM 9.0 8.6 - 10.2 mg/dL [facility] TOTAL PROTEIN 6.9 6.1 - 8.1 g/dL [facility] ALBUMIN 4.0 3.6 - 5.1 g/dL [facility] GLOBULIN 2.9 1.9 - 3.7 g/dL (calc) [facility] ALBUMIN/GLOBULI N RATIO 1.4 1.0 - 2.5 (calc) [facility] BILIRUBIN TOTAL 0.2 0.2 - 1.2 mg/dL [facility] ALKALINE PHOSPHATASE 76 31 - 125 U/L [facility] AST 13 10 - 30 U/L [facility] ALT 18 6 - 29 U/L [facility] Comment: Test Performed at: [facility] [address] [place], [place] ??[address] Yonny Connors D.O., MPH Blood 04/12/2022 11:2 9 AM CDT 04/12/2022 11:30 AM CDT Kendra Brody [facility] CHEMISTRY ORDER JULIAN [facility] [phone] [facility] [address] [place] [address] * CBC WITH DIFFERENTIAL (04/12/2022 11:29 AM [...] [facility] Comment: Test Performed at: [facility] [address] [place], [place] ??[address] Yonny Connors D.O., MPH Blood 04/12/2022 11:2 9 AM CDT 04/12/2022 11:30 AM CDT Kendra PATRICK HEMATOLOGY [place] [facility] [phone] [facility] [address] [place] [address] * HEPATITIS B CORE AB TOTAL (04/12/2022 11:29 AM CDT) HEPATITIS B CORE AB NON-REACTI VE NON-REACTI VE [facility] Comment: Test Performed at: [facility] [address] [place], [place] ??[address] Yonny Connors D.O., MPH Blood 04/12/2022 11:2 9 AM CDT 04/12/2022 11:30 AM CDT Kendra Lauren Brody ANP CHEMISTRY ORDER JULIAN [facility] [phone] [facility] [address] [place] [address] * HEPATITIS B SURFACE ANTIGEN (04/12/2022 11:29 AM CDT) HEPATITIS B SURFACE AG NON-REACTI VE NON-REACTI VE [facility] Comment: Test Performed at: [facility] [address] [place], [place] ??[phone] Yonny Connors D.O., MPH Blood 04/12/2022 11:2 9 AM CDT 04/12/2022 11:30 AM CDT Kendra Brody ANP CHEMISTRY ORDER JULIAN Performing Organization Address [facility] Co de Phone Number [facility] [phone] [facility] [address] [place] [address] * HEPATITIS B SURFACE AB, QUAL (04/12/2022 11:29 AM CDT) HEPATITIS B SURFACE AB, QUAL NON-REACTI VE NON-REACTI VE [facility] Comment: Test Performed at: [facility] [address] [place], [place] ??[phone] Yonny Connors D.O., MPH Blood 04/12/2022 11:2 9 AM CDT 04/12/2022 11:30 AM CDT Kendra Brody ANP CHEMISTRY ORDER JULIAN Performing Organization Address City/[facility]/ZIP Co de Phone Number [facility] [phone] [facility] [address] [place] [address] * QUANTIFERON TB GOLD (04/12/2022 11:29 AM [...] T-lymphocytes. For additional information, please refer to https://education.Med Access/faq/NEK630 (This link is being provided for informational/ educational purposes only.) Test Performed at: [facility] ??[phone] Yonny Connors D.O., MPH Blood 04/12/2022 11:2 9 AM CDT 04/12/2022 11:30 AM CDT Kendra Brody ANP CHEMISTRY ORDER JULIAN [facility] [phone] [facility] [address] [address] documented in this encounter Visit Diagnoses Diagnosis Crohn's disease of small intestine with complication- Primary Regional enteritis of small intestine Morbid obesity with body mass index (BMI) of 40.0 or higher documented in this encounter Care Teams Rolling Chair Pusher Relationship Specialty Start Date End Date Ciera Saucedo FNP [address] [place] [address] PCP - General Nurse Practitioner Family 05/24/21 documented as of this encounter
--- OUTSIDE RECORDS SUMMARY | 2024-08-16 07:43 | XMS_ITS | Encounter Summary ---
Author Organization [facility] Address [address] [place] [address] Care Team Providers Care Dry Kiln Worker Name Role Phone Ciera Saucedo BARBI Primary Care Provider [phone] Reason for Visit * Reason Comments Abnormal Lab Results WBC of 1.7, on immu nosuppressant for chron's Encounter Details Date Type Department Care Team (Late st Contact Info) Description 05/07/2023 8:52 PM CDT - 05/08/2023 2:52 AM CDT Emergency [facility] Emergency Department [address] [place] [address] [place] [address] [place] [address] Other drug-induced neutropenia (Primary Dx) [...] be sent through Care Everywhere. * Neutropenia (Bangladeshi) documented in this encounter Progress Notes * Chiara Evangelista RT - 05/07/2023 11:21 PM CDT IMAGING SERVICES - COMPUTED TOMOGRAPHY MEDICATION and FLUSH PROTOCOL [facility] THIS PROTOCOL IS IMPLEMENTED WHEN AN APPROVED PROVIDER ORDERS A CT SCAN WITH CONTRAST BY PAPER OR ELECTRONIC ORDER. The vice president of academic affairs will order place an order in EPIC for contrast ???Scope of Practice - no cosignrequired?? . Enter the protocol in the patient???s electronic health record using [employer]: .[facility] Communication Orders: For ordered imaging procedures requiring [...] for procedure. If at any time the Specimen Preparation Assistant has a question about which option to [...] Iopamidol solution with the patient to CT. [place] Administer 45mL of diluted Iopamidol oral solution, [...] less than 55kg and confirm dose with radiologist.[place] to 15 years old Administer up to 2.2mL/kg (to MAX of 80 mL) of Iopamidol (Isovue-370) 76%, intravenously, one time only 15 years old and older Administer up to 2.2mL/kg (to MAX of 125mL) of Iopamidol (Isovue-370) 76%, intravenously, one time only Initiating Department(s): Imaging Services - CT Approved by: Liseth Toledo Date: 02/2022 Approved by: Rd Mckenzie MD, Cerner Analyst Date: 02/2022 Approved by: P&T Committee Date: [...] occur. Paul Dunn MD, MPH Emergency Medicine [facility] documented in this encounter Plan of Treatment Upcoming Encounters Date Type Department Care Team (Late st Contact Info) Description 09/22/2024 8:00 AM CERAMICS TEST ENGINEER Office Visit [facility] IBD and Gastroenterology Center [place] [address] [facility] 180 [place] [address] Shreya Platt MD [address] [facility] 100 [place] [address] documented as of this encounter [...] BLOOD Negative Negative 05/07/2023 10:[address] [facility] Blood Venipuncture / Unknown 05/07/2023 9:34 PM CDT 05/07/2023 10:24 PM CDT Paul Dunn MD CHEMISTRY ORDERABLES [facility] CLIA# [id number] [place] [address] * (ABNORMAL) COMPREHENSIVE METABOLIC PANEL (05/07/2023 9:34 PM CDT) SODIUM 138 136 - 145 mmol/L 05/07/2023 10:[address] [facility] POTASSIUM 3.9 3.4 - 5.1 mmol/L 05/07/2023 10:[address] [facility] CHLORIDE 105 98 - 107 mmol/L 05/07/2023 10:[address] [facility] CO2 24 22 - 29 mmol/L 05/07/2023 10:36 PM CDT [facility] CALCIUM 8.7 8.6 - 10.4 mg/dL 05/07/2023 10:[address] [facility] BUN 11 6 - 20 mg/dL 05/07/2023 10:[address] [facility] CREATININE 0.73 0.51 - 0.95 mg/dL 05/07/2023 10:[address] [facility] GLUCOSE 94 74 - 99 mg/dL 05/07/2023 10:36 PM CDT [facility] TOTAL PROTEIN 7.4 6.3 - 8.7 g/dL 05/07/2023 10:[address] [facility] ALBUMIN 4.2 3.5 - 5.2 g/dL 05/07/2023 10:[address] [facility] BILIRUBIN TOTAL <0.2(L) 0.3 - 1.2 mg/dL 05/07/2023 10:[address] [facility] ALKALINE PHOSPHATASE 61 40 - 150 U/L 05/07/2023 10:[address] [facility] AST 28 0 - 33 U/L 05/07/2023 10:[address] [facility] ALT 32 0 - 33 U/L 05/07/2023 10:36 PM CDT [facility] GFR >60 >=60 mL/min/1.7 3 sq meter 05/07/2023 10:36 PM CDT [facility] Comment:eGFR calculated with 2020 CKD-EPI equation. Vegetarian diet, extremely high or low muscle mass, and may affect results. Cystatin C with Glomerular Filtration Rate is a suitable alternative for these patients. ANION GAP 9 8 - 16 mmol/L 05/07/2023 10:36 PM CDT [facility] Blood Venipuncture / Unknown 05/07/2023 9:34 PM CDT 05/07/2023 10:17 PM CDT Paul Dunn MD CHEMISTRY ORDERABLES [facility] CLIA# [id number] [place] [address] * (ABNORMAL) CBC WITH DIFFERENTIAL (05/07/2023 9:34 PM CDT) WBC 2.5(L) 4.5 - 10.5 K/uL 05/07/2023 10:19 PM CDT [facility] NRBCS 1 % 05/07/2023 10:19 PM CDT [facility] RBC 4.23 3.90 - 4.90 M/uL 05/07/2023 10:19 PM CDT [facility] HEMOGLOBIN 10.8(L) 11.8 - 14.8 g/dL 05/07/2023 10:19 PM CDT [facility] HEMATOCRIT 34.1(L) 35.5 - 44.0 % 05/07/2023 10:19 PM CDT [facility] MCV 80.6(L) 82.0 - 99.0 fL 05/07/2023 10:19 PM CDT [facility] MCH 25.5(L) 27.8 - 34.5 pg 05/07/2023 10:[address] [facility] MCHC 31.6(L) 32.5 - 35.5 g/dL 05/07/2023 10:[address] [facility] RDW 14.7(H) 11.5 - 14.5 % 05/07/2023 10:[address] [facility] PLATELETS 195 160 - 420 K/uL 05/07/2023 10:[address] [facility] MPV 8.7 8.7 - 12.7 fL 05/07/2023 10:[address] [facility] NEUTROPHILS 23 % 05/07/2023 10:[address] [facility] LYMPHOCYTES 63 % 05/07/2023 10:[address] [facility] MONOCYTES 13 % 05/07/2023 10:[address] [facility] EOSINOPHILS 0 % 05/07/2023 10:[address] [facility] BASOPHILS 1 % 05/07/2023 10:[address] [facility] NEUTROPHIL ABSOLUTE 0.60(L) 1.90 - 7.00 K/uL 05/07/2023 10:[address] [facility] LYMPHOCYTE ABSOLUTE 1.60 0.70 - 4.50 K/uL 05/07/2023 10:[address] [facility] MONOCYTE ABSOLUTE 0.30 0.10 - 1.30 K/uL 05/07/2023 10:[address] [facility] EOSINOPHIL ABSOLUTE 0.00 0.00 - 0.70 K/uL 05/07/2023 10:[address] [facility] BASOPHILS ABSOLUTE 0.00 0.00 - 0.20 K/uL 05/07/2023 10:[address] [facility] Blood Venipuncture / Unknown 05/07/2023 9:34 PM CDT 05/07/2023 10:14 PM CDT Paul Dunn MD HEMATOLOGY ORDERABLE S [facility] CLIA# [id number] [place] [address] documented in this encounter Visit Diagnoses Diagnosis [...] RT) documented in this encounter Care Teams Dry Kiln Worker Relationship Specialty Start Date End Date Ciera Saucedo FNP [address] [email or web address] [address] PCP - General Nurse Practitioner Family 05/24/21 documented as of this encounter
--- OUTSIDE RECORDS SUMMARY | 2024-08-16 07:43 | XMS_ITS | Encounter Summary ---
Author Organization [facility] Address [address] [place] [address] Care Team Providers Care Clinical Data Abstractor Name Role Phone Ciera Saucedo BARBI Primary Care Provider [phone] Encounter Details Date Type Department Care Team (Late Contact Info) Description 06/08/2022 Abstract [facility] Gastroenterology [facility] [address] [facility] 1200 [place] [address] Viki Rosales MD [address] [facility] [place] [address] Social History Tobacco Use Types [...] (Late Contact Info) Description 09/22/2024 8:00 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 TICKET SALES Office Visit [facility] and Gastroenterology [facility] [address] [facility] [address] [place] [address] Shreya Platt MD [address] [place] [address] documented as of this encounter Visit Diagnoses Not on filedocumented in this encounter Care Teams Clinical Data Abstractor Relationship Specialty Start Date End Date Ciera Saucedo FNP [address] [place] [address] PCP - General Nurse Practitioner Family 05/24/21 documented as of this encounter
--- OUTSIDE RECORDS SUMMARY | 2024-08-16 07:43 | XMS_ITS | Encounter Summary ---
Author Organization [facility] Address [address] [place] [address] Care Team Providers Care Senior Pl Sql Developer Name Role Phone Ciera Saucedo Primary Care Provider [phone] Encounter Details Date Type Department Care Team [...] st Contact Info) Description 09/22/2024 8:00 AM MORTGAGE SERVICING SPECIALIST Office Visit [facility] IBD and Gastroenterology Center [place] [address] [facility] [address] [place] [address] Shreya Platt MD [address] [facility] [address] [place] [address] documented as of this encounter Visit Diagnoses Not on filedocumented in this encounter Care Teams Senior Pl Sql Developer Relationship Specialty Start Date End Date Ciera Saucedo FNP [address] [employer] [address] PCP - General Nurse Practitioner Family 05/24/21 documented as of this encounter
--- OUTSIDE RECORDS SUMMARY | 2024-08-16 07:43 | XMS_ITS | Encounter Summary ---
Author Organization [facility] Address [address] [place] [address] Care Team Providers Care Computer Assistant Name Role Phone Ciera Saucedo BARBI Primary Care Provider Reason for Visit * Reason Onset Date Comments Needs Appointment 06/22/2023 Encounter Details Date Type Department Care Team (Late st Contact Info) Description 06/22/[address] [facility] IBD and Gastroenterology Center [address] [address] Kendra Brody, D[place]NELL [address] [facility] 100 [place] [address] Needs Appointment Social History Tobacco [...] to see those results, I'm hope your Landfill Gas Technician was also able to review. I saw [...] Kendra to look over. Soheila Mendoza. Lead Library Page [facility] IBD and Gastroenterology [phone] (Fax) ----- Message ----- From:Pennie Aguila Sent:06/20/2023 [...] have someone call me. I???m at the Landfill Gas Technician now and I don???t have any blood [...] back from them yet. Soheila Garcia Lead Library Page [facility] IBD and Gastroenterology [phone] (Fax) ----- Message ----- From:Pennie Aguila Sent:06/19/2023 12:42 PM CDT To:Patient Medical Advice Request Message List Subject:Test Results So I guess nobody has my blood results? ----- Message ----- From:Pennie Aguila Sent:06/13/2023 1:18 PM CDT To:Patient Medical Advice Request Message List Subject:Test Results At the [facility] Infusion center in [place], [place] ----- Message ----- From:Soheila Mendoza Sent:06/13/2023 11:52 AM CDT To:Pennie Aguila Subject:Test Results Arian Casper, Where did you get your infusion done at? Soheila Garcia Lead Library Page [facility] IBD and Gastroenterology [phone] (Fax) ----- Message ----- From:Pennie Aguila Sent:06/13/2023 10:22 AM CDT To:Dr. Tarsa Platt Subject:Test Results Hi, I had my infusion done last Sunday and they did some bloodwork. I was trying to see the results of my bloodwork but I???m not seeing it anywhere? documented in this encounter Plan of Treatment Upcoming Encounters Date Type Department Care Team (Late st Contact Info) Description 09/22/2024 8:00 AM MEDICAL OBSERVER Office Visit [facility] IBD and Gastroenterology Center [place] [address] [place] [address] Shreya Platt MD [address] [place] [address] documented as of this encounter Visit Diagnoses Not on filedocumented in this encounter Care Teams Computer Assistant Relationship Specialty Start Date End Date Ciera Saucedo FNP [address] [place] [address] PCP - General Nurse Practitioner Family 05/24/21 documented as of this encounter
--- OUTSIDE RECORDS SUMMARY | 2024-08-16 07:43 | XMS_ITS | Encounter Summary ---
Author Organization [facility] Address [address] [place] [address] Care Team Providers Care Direct Service Provider Name Role Phone Ciera Saucedo BARBI Primary Care Provider [phone] Reason for Visit * Reason Comments Med Refill Encounter Details Date Type Department Care Team (Late st Contact Info) Description 09/24/2022 Refill [facility] IBD and Gastroenterology Center [address] [facility] [address] [place] [address] Kendra Brody, DARNELL [address] [place] [address] Social History Tobacco Use Types [...] I recommend all IBD patients on [address] police officer, and she will talk to her OB [...] ultrasound. Continue infliximab Return to clinic 3-4months TECHNICIAN documented in this encounter Plan of Treatment Upcoming Encounters Date Type Department Care Team (Late st Contact Info) Description 09/22/2024 8:00 AM CD TECHNICIAN Office Visit [facility] IBD and Gastroenterology Center [place] [address] [facility] 180 [place] [address] Shreya Platt MD [address] [place] [address] documented as of this encounter Visit Diagnoses Not on filedocumented in this encounter Care Teams Direct Service Provider Relationship Specialty Start Date End Date Ciera Saucedo FNP [address] [place] [address] PCP - General Nurse Practitioner Family 05/24/21 documented as of this encounter
--- OUTSIDE RECORDS SUMMARY | 2024-08-16 07:43 | XMS_ITS | Encounter Summary ---
Author Organization [facility] Address [address] [place] [address] Care Team Providers Care Training And Development Officer Name Role Phone Ciera Saucedo BARBI Primary Care Provider [phone] Reason for Visit * Reason Onset Date Comments abd. pelvis orders 07/28/2022 Encounter Details Date Type Department Care Team (Late st Contact Info) Description 07/28/2022 Telephone [facility] IBD and Gastroenterology Center [address] [address] Shreya Platt MD [address] [facility] 100 [place] [address] abd. pelvis orders Social History [...] Coronavirus/COVID-19? No / Unsure 07/26/2022 5:13 PM DRAPERY AND UPHOLSTERY ESTIMATOR documented as of this encounter Miscellaneous Notes * Telephone Encounter - Jennyfer Nunez - 07/28/2022 10:11 AM CST The field artillery targeting technician called IBD to speak with Dr. Platt because the certified technician thinks Dr. Platt ordered the wrong images. Pt states RLQ pain and that the abd. Pelvis complete wouldn't image the RLQ , certified technician also states that the patient is too far along in her , for these images . Per SOFTWARE TESTER Mary Grace, to cancel the appt and wait for Dr. Platt to respond. ERY AND UPHOLSTERY ESTIMATOR documented in this encounter Plan of Treatment Upcoming Encounters Date Type Department Care Team (Late st Contact Info) Description 09/22/2024 8:00 AM DRAPERY AND UPHOLSTERY ESTIMATOR Office Visit [facility] IBD and Gastroenterology Center [place] [address] [facility] [address] [place] [address] Shreya Platt MD [address] [place] [address] [place] [address] documented as of this encounter Visit Diagnoses Not on filedocumented in this encounter Care Teams Training And Development Officer Relationship Specialty Start Date End Date Ciera Saucedo FNP [address] [place] [address] PCP - General Nurse Practitioner Family 05/24/21 documented as of this encounter
--- OUTSIDE RECORDS SUMMARY | 2024-08-16 07:43 | XMS_ITS | Encounter Summary ---
Author Organization [facility] Address [address] [place] [address] Care Team Providers Care Supervisor Partial Denture Department Name Role Phone Ciera Saucedo BARBI Primary Care Provider Reason for Visit * Reason Comments Establish Care Encounter Details Date Type Department Care Team (Late st Contact Info) Description 06/20/2023 10:30 AM CDT Office Visit [facility] Oncology and Hematology - [place] [address] [place] [address] 200 [place] [address] Alli Cao MD [address] [facility] [address] [place] [address] Leukocytosis, unspecified type (Primary Dx); [...] dysuria; no frequency; no hesitancy; no hematuria BUILDING ENERGY CONSULTANT: Musculosketetal: Patient did not mention bone pain; [...] on infliximab and will follow-up with the slasher tender helper. Thank you very much for allowing me [...] of the total time spent counseling patient [id number]. CC:?Ciera Saucedo FNP documented in this encounter Plan of Treatment Upcoming Encounters Date Type Department Care Team (Late st Contact Info) Description 09/22/2024 8:00 AM ASSURANCE SENIOR MANAGER Office Visit [facility] IBD and Gastroenterology Center [place] [address] [facility] 180 [place] [address] Shreya Platt MD [address] [place] [address] documented as of this encounter Visit Diagnoses Diagnosis Leukocytosis, unspecified type- Primary Chronic anemia Anemia, unspecified documented in this encounter Care Teams Supervisor Partial Denture Department Relationship Specialty Start Date End Date Ciera Saucedo FNP [address] [place] [address] PCP - General Nurse Practitioner Family 05/24/21 documented as of this encounter
--- OUTSIDE RECORDS SUMMARY | 2024-08-16 07:43 | XMS_ITS | Encounter Summary ---
Author Organization [facility] Address [address] [place] [address] Care Team Providers Care Data Security Analyst Name Role Phone Ciera Saucedo BARBI Primary Care Provider Encounter Details Date Type Department Care Team (Late st Contact Info) Description 03/19/2023 Orders Only [facility] IBD and Gastroenterology [place] [address] [place] [address] Shreya Platt MD [address] [place] [address] Crohn's disease of small intestine [...] Contact Info) Description 09/22/2024 8:00 AM SHAREPOINT MANAGER Office Visit [facility] IBD and Gastroenterology [facility] [address] [place] [address] Shreya Platt MD [address] IBD CLIN[place] [...] PM CDT) CALPROTECTIN, FECAL 15 mcg/g [facility], Comment: ?Reference Range: ?<50 ? [...] values. FASTING:NO FASTING: NO Test Performed at: [facility], [address] [place], [place] ??[address] Aaliyah Esquivel MD,PhD,FATOU Stool STOOL SPECIMEN / Unknown 03/29/2023 3:31 PM CDT 03/30/2023 3:18 AM CDT Shreya Platt MD BODY FLUIDS AND S TOOLS Performing Organization Address [facility] Co de Phone Number [facility] [phone] [facility], [address] [place] [address] * C-REACTIVE PROTEIN (03/23/2023 2:47 PM CDT) CRP 1.8 <8.0 mg/L [facility] Comment: FASTING:NO FASTING: NO Test Performed at: [facility] ??[address] Marce Pittman MD Blood 03/23/2023 2:47 PM CDT 03/23/2023 2:48 PM CDT Shreya Platt MD CHEMISTRY ORDERAB LES Performing Organization Address [facility] Co de Phone Number [facility] [phone] [facility] [address] * COMPREHENSIVE METABOLIC PANEL (03/23/2023 2:47 PM CDT) GLUCOSE 85 65 - 139 mg/dL [facility] Comment: ? Non-fasting reference interval BUN 12 7 - 25 mg/dL [facility] CREATININE 0.71 0.50 - 0.96 mg/dL [facility] GFR 122 > OR = 60 mL/min/1 .73m2 [facility] Comment: The eGFR is based on the CKD-EPI 2020 equation. To calculate the new eGFR from a previous Creatinine or Cystatin C result, go to https://www.kidney.org/professionals/ kdoqi/gfr%5Fcalculator BUN/CREAT RATIO NOT APPLICABLE 6 - 22 (calc) [facility] SODIUM 136 135 - 146 mmol/L [facility] POTASSIUM 4.1 3.5 - 5.3 mmol/L [facility] CHLORIDE 104 98 - 110 mmol/L [facility] CO2 27 20 - 32 mmol/L [facility] CALCIUM 9.1 8.6 - 10.2 mg/dL [facility] TOTAL PROTEIN 7.1 6.1 - 8.1 g/dL [facility] ALBUMIN 4.2 3.6 - 5.1 g/dL [facility] GLOBULIN 2.9 1.9 - 3.7 g/dL (calc) [facility] ALBUMIN/GLOBULIN RATIO 1.4 1.0 - 2.5 (calc) [facility] BILIRUBIN TOTAL 0.5 0.2 - 1.2 mg/dL [facility] ALKALINE PHOSPHATASE 72 31 - 125 U/L [facility] AST 16 10 - 30 U/L [facility] ALT 23 6 - 29 U/L [facility] Comment: FASTING:NO FASTING: NO Test Performed at: [place] [address] [place], [place] ??[address] Marce Pittman Blood 03/23/2023 2:47 PM CDT 03/23/2023 2:48 PM CDT Shreya Platt MD CHEMISTRY ORDERAB LES [facility] [phone] [place] [address] [place] [address] * (ABNORMAL) CBC WITH DIFFERENTIAL (03/23/2023 2:47 PM CDT) WBC 5.3 3.8 - 10.8 Thousand/ uL [facility] RBC 4.05 3.80 - 5.10 Million/u L [facility] HEMOGLOBIN 10.7(L) 11.7 - 15.5 g/dL [facility] HEMATOCRIT 34.3(L) 35.0 - 45.0 % [facility] [...] Comment: FASTING:NO FASTING: NO Test Performed at: [facility] [address] [place], [place] ??[address] [facility] Shannan Pittman Blood 03/23/2023 2:47 PM CDT 03/23/2023 2:48 PM CDT Shreya Platt MD HEMATOLOGY ORDERA BLES [facility] [phone] [facility] [address] [place] [address] documented in this encounter Visit Diagnoses Diagnosis Crohn's disease of small intestine with complication- Primary Regional enteritis of small intestine documented in this encounter Care Teams Data Security Analyst Relationship Specialty Start Date End Date Ciera Saucedo FNP [address] [place] [address] PCP - General Nurse Practitioner Family 05/24/21 documented as of this encounter
--- OUTSIDE RECORDS SUMMARY | 2024-08-16 07:43 | XMS_ITS | Encounter Summary ---
Author Organization [facility] Address [address] [place] [address] Care Team Providers Care Food Porter Name Role Phone Ciera Saucedo BARBI Primary Care Provider [phone] Encounter Details Date Type Department Care Team (Late st Contact Info) Description 06/04/2023 Orders Only [facility] IBD and Gastroenterology [place] [address] [place] [address] Shreya Platt MD [address] [place] [address] Crohn's disease of small intestine [...] st Contact Info) Description 09/22/2024 8:00 AM FIELD WORKER Office Visit [facility] IBD and Gastroenterology [facility] [address] [place] [address] Shreya Platt MD [address] [place] [address] documented as of this encounter Visit Diagnoses Diagnosis Crohn's disease of small intestine with complication- Primary Regional enteritis of small intestine documented in this encounter Care Teams Food Porter Relationship Specialty Start Date End Date Ciera Saucedo FNP [address] [place] [address] PCP - General Nurse Practitioner Family 05/24/21 documented as of this encounter
--- OUTSIDE RECORDS SUMMARY | 2024-08-16 07:44 | XMS_ITS | Encounter Summary ---
Author Organization [facility] Address [address] [place] [address] Care Team Providers Care Last Code Striper Name Role Phone Ciera Saucedo BARBI Primary Care Provider [phone] Encounter Details Date Type Department Care Team (Late Contact Info) Description 05/25/2021 Abstract [facility] Gastroenterology [facility] [address] [address] Emerald Valdez Social History Tobacco [...] (Late Contact Info) Description 09/22/2024 8:00 AM PHARMACY TECHNICIAN INPATIENT Office Visit [facility] IBD and Gastroenterology [facility] [address] [facility] [address] [place] [address] Shreya Platt MD [address] [place] [address] documented as of this encounter Visit Diagnoses Not on filedocumented in this encounter Care Teams Last Code Striper Relationship Specialty Start Date End Date Ciera Saucedo FNP [address] [place] [address] PCP - General Nurse Practitioner Family 05/24/21 documented as of this encounter
--- OUTSIDE RECORDS SUMMARY | 2024-08-16 07:44 | XMS_ITS | Encounter Summary ---
Author Organization [facility] Address [address] [place] [address] Care Team Providers Care Carbide Tool Die Maker Name Role Phone EhsanCiera copeland BARBI Primary Care Provider [phone] Reason for Referral * Outpatient Services (Routine) - Closed Specialty Diagnoses / Procedures Referred By Contac t Referred To Contact Hematology and Oncology Diagnoses Crohn's disease of small and large intestines with complication Procedures INFUSION THERAPY INFUSION THERAPY [place] INJECTION, INFLECTRA INFLIXIMAB-ddyb (INFLECTRA) Shreya Platt MD [address] [facility] 100 [place] [address] [place] [address] Referral ID Status Reason Start Date Expiration Date Visits Requested Visits Authorized [id number] Closed Performing Department to Schedule 10/11/2021 1 1 E CONDITIONER Encounter Details Date Type Department Care Team (Latest Contact Info) Description 10/11/[address] [facility] Gastroenterology [facility] [address] [facility] [address] [place] [address] Alfredo Villanueva Crohn's disease of [...] on: 10/11/2021 10:44 AM Modules accepted: Orders E CONDITIONER documented in this encounter Plan of Treatment Upcoming Encounters Date Type Department Care Team (Late st Contact Info) Description 09/22/2024 8:00 AM PLATE CONDITIONER Office Visit [facility] IBD and Gastroenterology Center [place] [address] [place] [address] Shreya Platt MD [address] [facility] [address] [place] [address] documented as of this encounter Visit Diagnoses Diagnosis Crohn's disease of small and large intestines with complication- Primary documented in this encounter Care Teams Carbide Tool Die Maker Relationship Specialty Start Date End Date Ciera Saucedo FNP [address] [place] [address] PCP - General Nurse Practitioner Family 05/24/21 documented as of this encounter
--- OUTSIDE RECORDS SUMMARY | 2024-08-16 07:44 | XMS_ITS | Encounter Summary ---
Author Organization [facility] Address [address] [place] [address] Care Team Providers Care Bead Inspector Name Role Phone Ciera Saucedo Primary Care Provider [phone] Encounter Details Date Type Department Care Team (Late Contact Info) Description 10/11/2021 Abstract [facility] Gastroenterology [facility] [address] [facility] 1200 [place] [address] Emerald Valdez Social History Tobacco Use Types [...] (Late Contact Info) Description 09/22/2024 8:00 AM LEASE EXAMINER Office Visit [facility] IBD and Gastroenterology [facility] [address] [facility] [address] [place] [address] Shreya Platt MD [address] [facility] 100 [place] [address] documented as of this encounter Visit Diagnoses Not on filedocumented in this encounter Care Teams Bead Inspector Relationship Specialty Start Date End Date Ciera Saucedo FNP [address] [place] [address] PCP - General Nurse Practitioner Family 05/24/21 documented as of this encounter
--- OUTSIDE RECORDS SUMMARY | 2024-08-16 07:44 | XMS_ITS | Encounter Summary ---
Author Organization [facility] Address [address] [place] [address] Care Team Providers Care Steam Blocker Name Role Phone Ciera Saucedo BARBI Primary Care Provider [phone] Encounter Details Date Type Department Care Team (Late st Contact Info) Description 07/11/2021 Chart Note [facility] Gastroenterology [place] [address] [address] Emerald Valdez Social History Tobacco [...] the authorization for infliximab with hopes for [facility] approval.. Shreya Platt MD [facility] Inflammatory Bowel Disease ER SECURITY ADMINISTRATOR * Emerald Valdez - 07/11/2021 9:40 AM CST Patient just needs a progress note of patient being on Prednisone , So Freddie can re-submit PA for infliximab To insurance ER SECURITY ADMINISTRATOR documented in this encounter Plan of Treatment Upcoming Encounters Date Type Department Care Team (Late st Contact Info) Description 09/22/2024 8:00 AM SERVER SECURITY ADMINISTRATOR Office Visit [facility] IBD and Gastroenterology Center [place] [address] [place] [address] Shreya Platt MD [address] [place] [address] [place] [address] documented as of this encounter Visit Diagnoses Not on filedocumented in this encounter Care Teams Steam Blocker Relationship Specialty Start Date End Date Ciera Saucedo FNP [address] [place] [address] PCP - General Nurse Practitioner Family 05/24/21 documented as of this encounter
--- OUTSIDE RECORDS SUMMARY | 2024-08-16 07:44 | XMS_ITS | Encounter Summary ---
Author Organization [facility] Address 5 [facility] Attn: [place] [address] Care Team Providers Care Tool Machine Setup Operator Name Role Phone Ciera Saucedo BARBI Primary Care Provider [phone] Encounter Details Date Type Department Care Team [...] st Contact Info) Description 09/22/2024 8:00 AM CERTIFIED MEDICAL CODING SPECIALIST Office Visit [facility] IBD and Gastroenterology [facility] [place] [address] [facility] [[email or web address] [address] [place] [address] Shreya Platt MD [address] [facility] 100 [place] [address] documented as of this encounter Visit Diagnoses Not on filedocumented in this encounter Care Teams Tool Machine Setup Operator Relationship Specialty Start Date End Date Ciera Saucedo FNP [address] [place] [address] PCP - General Nurse Practitioner Family 05/24/21 documented as of this encounter
--- OUTSIDE RECORDS SUMMARY | 2024-08-16 07:44 | XMS_ITS | Encounter Summary ---
Author Organization [facility] Address [address] [place] [address] Care Team Providers Care Mechanical Maintenance Name Role Phone Ciera Saucedo BARBI Primary Care Provider [phone] Encounter Details Date Type Department Care Team (Late Contact Info) Description 09/16/2021 Chart Note [facility] Gastroenterology [place] [id number] [facility] [address] [place] [address] Emerald Valdez Social History Tobacco [...] has tried and failed Prednisone in June O CASE MAKER documented in this encounter Plan of Treatment Upcoming Encounters Date Type Department Care Team (Late Contact Info) Description 09/22/2024 8:00 AM PIANO CASE MAKER Office Visit [facility] IBD and Gastroenterology [facility] [address] [place] [address] [place] [address] Shreya Platt MD [address] [place] [address] [place] [address] documented as of this encounter Visit Diagnoses Not on filedocumented in this encounter Care Teams Mechanical Maintenance Relationship Specialty Start Date End Date Ciera Saucedo FNP [address] [place] [address] PCP - General Nurse Practitioner Family 05/24/21 documented as of this encounter
--- OUTSIDE RECORDS SUMMARY | 2024-08-16 07:44 | XMS_ITS | Encounter Summary ---
Author Organization [facility] Address [address] [place] [address] Care Team Providers Care Liaison Planner Name Role Phone Ciera Saucedo BARIB Primary Care Provider [phone] Encounter Details Date Type Department Care Team (Latest Contact Info) Description 10/21/1999 Outpatient Historical [facility] Giovanni Borden MD [address] [place] [id number] Stenosis of nasolacrimal duct, acquired (Primary Dx) [...] st Contact Info) Description 09/22/2024 8:00 AM IT INFRASTRUCTURE ENGINEER Office Visit [facility] IBD and Gastroenterology Center [place] [address] [place] [place] [address] Shreya Platt MD [address] [place] [place] [address] [place] [address] documented as of this encounter Visit Diagnoses Diagnosis Stenosis of nasolacrimal duct, acquired- Primary documented in this encounter Additional Health Concerns Infection Onset Date Last Indicated Resolved Time R/O C. diff 01/05/2022 01/04/2022 01/05/2022 1:51 PM CDT documented as of this encounter Care Teams Liaison Planner Relationship Specialty Start Date End Date Ciera Saucedo FNP [address] [place] [address] PCP - General Nurse Practitioner Family 05/24/21 documented as of this encounter
--- OUTSIDE RECORDS SUMMARY | 2024-08-16 07:44 | XMS_ITS | Encounter Summary ---
Author Organization [facility] Address [address] [place] [address] Care Team Providers Care Hand Packer/Packager Name Role Phone Ciera Saucedo BARBI Primary Care Provider [phone] Encounter Details Date Type Department Care Team (Late st Contact Info) Description 09/13/2021 Orders Only [facility] IBD and Gastroenterology [place] [address] [facility] 100 [place] [address] Shreya Platt MD [address] [facility] 100 [place] [address] Social History Tobacco Use Types [...] st Contact Info) Description 09/22/2024 8:00 AM SHIPPING/RECEIVING CLERK Office Visit [facility] IBD and Gastroenterology [facility] [address] [place] [address] Shreya Platt MD [address] [place] [address] [place] [address] documented as of this encounter Visit Diagnoses Not on filedocumented in this encounter Care Teams Hand Packer/Packager Relationship Specialty Start Date End Date Ciera Saucedo FNP [address] [place] [address] PCP - General Nurse Practitioner Family 05/24/21 documented as of this encounter
--- OUTSIDE RECORDS SUMMARY | 2024-08-16 07:44 | XMS_ITS | Encounter Summary ---
Author Organization [facility] Address [address] [place] [address] Care Team Providers Care Anvilsmith Name Role Phone Ciera Saucedo BARBI Primary Care Provider [phone] Reason for Visit * Reason Onset Date Comments MRI results 06/28/2021 Encounter Details Date Type Department Care Team (Late st Contact Info) Description 06/28/2021 Telephone [facility] Gastroenterology [facility] [address] [place] [address] Shreya Platt MD [address] [place] [address] [place] [address] MRI results Social History Tobacco [...] st Contact Info) Description 09/22/2024 8:00 AM APPEALS SPECIALIST Office Visit [facility] IBD and Gastroenterology Center [place] [address] [place] [address] Shreya Platt MD [address] [place] [address] [place] [address] documented as of this encounter Visit Diagnoses Not on filedocumented in this encounter Care Teams Anvilsmith Relationship Specialty Start Date End Date Ciera Saucedo FNP [address] [place] [address] PCP - General Nurse Practitioner Family 05/24/21 documented as of this encounter
--- OUTSIDE RECORDS SUMMARY | 2024-08-16 07:44 | XMS_ITS | Encounter Summary ---
Author Organization [facility] Healthcare Address [address] [place] [address] Care Team Providers Care Tinsmith Apprentice Name Role Phone Gucci Manrique MD Primary Care Provider [phone] OllieConcetta MD Unavailable [phone] Reason for Visit * Medication Authorization (Routine) - Pending Review Specialty Diagnoses / Procedures Referred By Carolina t Referred To Contact Shreya Platt MD [address] [facility] 100 [place] [address] Phone: tel: fax: Referral ID Status Reason Start Date Expiration Date V isits Requested Visits Authorized [id number] Pending Review 01/06/2024 02/04/2025 1 1 Encounter Details Date Type Department Care Team (Latest Contact Info) Description 01/01/2024 9:00 AM CDT Home Care Visit [place] [address] [address] [place] [address] Gregor Ken RN SN INFUSION TREATMENT ROOM [...] on file Legal Sex Female 12:12 AM ACCOUNTS PAYABLE TECHNICIAN Gender Identity Not on file Sexual Orientation Not on file 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 on file [...] Dose Rate Site 0.9 % sodium chloride ([facility] chloride 0.9%) injection 10 mL, [...] -SN Infusion Gail tment Room Discipline -Senior Living Problems Problem Description Start Date Status Goals Interve ntions Medications Disciplines: Senior Living Management of medications 10/28/2023 Active 1 goal linked to scheduled/documen mauricio intervention 1 goal intervention scheduled/documen mauricio in this visit Monitor patient's vital signs every home health visit Disciplines: Skilled Disciplines, SN, PT, OT, METAL BONDING ASSEMBLER, DRILLING ENGINEER Monitor patient's vital signs every visit. 10/28/2023 Active 1 goal linked to scheduled/documen mauricio intervention 1 goal intervention scheduled/documen mauricio in this visit Safety concerns Disciplines: Skilled Disciplines Alteration in safety 10/28/2023 Active 1 goal linked to scheduled/documen mauricio intervention 1 goal intervention scheduled/documen mauricio in this visit Specialty Medication - General Disciplines: Senior Living Skilled Nurse to provide safe assessment of patient prior to use of general specialty medication 10/28/2023 Active - 3 problem interventions scheduled/documen mauricio in this visit Medications Disciplines: Senior Living Management of IV Medications 10/28/2023 Active - 1 problem intervention scheduled/documen mauricio in this visit Learning/Teachin g Needs - IV Therapy Disciplines: Senior Living Teaching and learning needs for IV therapy [...] Patient seen in treatment room at our [place] office but reports feeling safe at home [...] strategies to prevent infection: frequent/proper hand-washing techniques, [place] precautions, avoid crowds and persons with known infections, staying current with immunizations, s/s of infection, use of antibiotics and encourage adequate diet and fluid intake. Instruct patient on how to recognize signs and symptoms of infection and when to notify nurse and/or physician. Problem:Learning/Teac adi Needs - IV Therapy Completed SN instructed patient in strategies to prevent infection: frequent/proper hand-washing techniques, [place] precautions, avoid crowds and persons with known [...] well. documented in this encounter Care Teams Tinsmith Apprentice Relationship Specialty Start Date End Date Gucci Manrique MD PCP - General Family Medicine 07/06/20 Concetta Diop MD [address] [facility] [address] DIV IM MEDICAL ONCOLOGY, [address] [place] [address] Surgeon Breast Surgery 08/28/23 documented as of this encounter
--- OUTSIDE RECORDS SUMMARY | 2024-08-16 07:44 | XMS_ITS | Encounter Summary ---
Author Organization [facility] Healthcare Address [address] [place] [address] Care Team Providers Care Hogshead Press Operator Name Role Phone Gucci Manrique MD Primary Care Provider [phone] [place], Concetta Bowden MD Unavailable [phone] Reason for Visit * Reason Comments Crohn's Disease * Medication Authorization (Routine) - Pending Review Specialty Diagnoses / Procedures Referred By Contkarthikeyan t Referred To Contact Shreya Platt MD [address] 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 Next Inflectra infusion scheduled at [place] for 06/18/2024 @ 0900. documented in this encounter Plan of Treatment Not on file documented as of this encounter Visit Diagnoses Not on filedocumented in this encounter Administered Medications Active Administered Medications - up to 3 most recent administrations Medication Order MAR Action Action Date Dose Rate Site 0.9 % sodium chloride ([facility] sodium chloride 0.9%) injection 10 [...] visit Disciplines: Skilled Disciplines, SN, PT, OT, CHEMISTRY FACULTY MEMBER, COMMODITY INDUSTRY ANALYST Monitor patient's vital signs every visit. [...] strategies to prevent infection: frequent/proper hand-washing techniques, [place] precautions, avoid crowds and persons with known infections, staying current with immunizations, s/s of infection, use of antibiotics and encourage adequate diet and fluid intake. Instruct patient on how to recognize signs and symptoms of infection and when to notify HH nurse and/or physician. Problem:Learning/Teac adi Needs - IV Therapy Completed Instructed patient in strategies to prevent infection: frequent/proper hand-washing techniques, [place] precautions, avoid crowds and persons with known [...] site. documented in this encounter Care Teams Hogshead Press Operator Relationship Specialty Start Date End Date Gucci Manrique MD PCP - General Family Medicine 07/06/20 Concetta Diop MD [address] [facility] [address] DIV MEDICAL ONCOLOGY, [facility] [address] [place] [address] Surgeon Breast Surgery 08/28/23 documented as of this encounter
--- OUTSIDE RECORDS SUMMARY | 2024-08-16 07:44 | XMS_ITS | Encounter Summary ---
Author Organization [facility] Healthcare Address [address] [place] [address] Care Team Providers Care Registered Nurse Teacher Name Role Phone uGcci Manrique MD Primary Care Provider + [phone] [place], Concetta Bowden MD Unavailable [phone] Reason for Visit * Reason Comments Crohn's Disease * Medication Authorization (Routine) - Pending Review Specialty Diagnoses / Procedures Referred By Contkarthikeyan t Referred To Contact Shreya Platt MD [address] [facility] [address] [place] [address] Phone: tel: fax: Referral ID Status Reason Start Date Expiration Date V isits Requested Visits Authorized [id number] Pending Review 12/06/2023 01/04/2025 1 1 Encounter Details Date Type Department Care Team (Latest Contact Info) Description 12/04/2023 9:00 AM CDT Home Care Visit [facility] Health [place] [address] [address] [place] [address] Dipti Loya RN SN INFUSION TREATMENT ROOM [...] on file Legal Sex Female 12:12 AM WEBMETHODS CONSULTANT Gender Identity Not on file Sexual Orientation Not on file 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 10/28/2023 Active 1 goal linked to scheduled/documen mauricio intervention 1 goal intervention scheduled/documen mauricio in this visit Safety concerns Disciplines: Skilled Disciplines Alteration in safety 10/28/2023 Active 1 goal linked to scheduled/documen mauricio intervention 1 goal intervention scheduled/documen mauricio in this visit Specialty Medication - General Disciplines: Long Term Skilled Nurse to provide safe assessment of patient prior to use of general specialty medication 10/28/2023 Active - 3 problem interventions scheduled/documen mauricio in this visit Medications Disciplines: Long Term Management of IV Medications 10/28/2023 Active - 1 problem intervention scheduled/documen mauricio in this visit Learning/Teachazucena g Needs - IV Therapy Disciplines: Long [...] strategies to prevent infection: frequent/proper hand-washing techniques, [place] precautions, avoid crowds and persons with known [...] Scheduled documented in this encounter Care Teams Registered Nurse Teacher Relationship Specialty Start Date End Date Gucci Manrique MD PCP - General Family Medicine 07/06/20 Concetta Diop MD [address] [facility] [address] DIV MEDICAL ONCOLOGY, [facility] [address] [place] [address] Surgeon Breast Surgery 08/28/23 documented as of this encounter
--- OUTSIDE RECORDS SUMMARY | 2024-08-16 07:44 | XMS_ITS | Encounter Summary ---
Author Organization [facility] Address [address] [place] [address] Care Team Providers Care Country Director Name Role Phone Ciera Saucedo Primary Care Provider [phone] Encounter Details Date Type Department Care Team (Late st Contact Info) Description 05/24/2021 Abstract [facility] Gastroenterology [facility] [address] [address] Emerald Valdez Social History Tobacco [...] (Late Contact Info) Description 09/22/2024 8:00 AM PRODUCT CONTROLLER Office Visit [facility] IBD and Gastroenterology [facility] [address] [facility] [address] [place] [address] Shreya Platt MD [address] [facility] 100 [place] [address] documented as of this encounter Visit Diagnoses Not on filedocumented in this encounter Care Teams Country Director Relationship Specialty Start Date End Date Ciera Saucedo FNP [address] [employer] [place] [address] PCP - General Nurse Practitioner Family 05/24/21 documented as of this encounter
--- OUTSIDE RECORDS SUMMARY | 2024-08-16 07:44 | XMS_ITS | Encounter Summary ---
Author Organization [facility] Healthcare Address [address] [place] [address] Care Team Providers Care Absorption Plant Operator Name Role Phone Gucci Manrique MD Primary Care Provider + [phone] [place], Concetta Bowden MD Unavailable [phone] Reason for Visit * Reason Comments Crohn's Disease * Medication Authorization (Routine) - Pending Review Specialty Diagnoses / Procedures Referred By Contkarthikeyan t Referred To Contact Shreya Platt MD [address] [facility] 100 [place] [address] Phone: tel: fax: Referral ID Status Reason Start Date Expiration Date V isits Requested Visits Authorized [id number] Pending Review 05/05/2024 06/04/2025 1 1 Encounter Details Date Type Department Care Team (Latest Contact Info) Description 07/16/2024 9:00 AM SHAPING MACHINE OPERATOR Home Care Visit [facility] Health [place] [address] [address] [place] [address] Bipin Leiva RN SN INFUSION TREATMENT ROOM [...] on file Legal Sex Female 12:12 AM SHAPING MACHINE OPERATOR Gender Identity Not on file Sexual Orientation Not on file 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 file Not on file Not on file documented as of this encounter Last Filed Vital Signs Vital Sign Reading Time Taken Comments Blood Pressure 123/71 07/16/2024 11:38 AM SHAPING MACHINE OPERATOR Pulse 82 07/16/2024 11:38 AM SHAPING MACHINE OPERATOR Temperature 36.4 ??C (97.6 ??F) 07/16/2024 11:[address] Respiratory Rate 16 07/16/2024 11:38 AM SHAPING MACHINE OPERATOR Oxygen Saturation 100% 07/16/2024 11:38 AM SHAPING MACHINE OPERATOR Inhaled Oxygen Concentration - - Weight - - Height 162.6 cm (5' 4 ) 07/16/2024 10:13 AM SHAPING MACHINE OPERATOR Body Mass Index - - documented in [...] verbalizes understanding. Next Inflectra infusion scheduled at [place] for 08/13/2024 @ 0900. ING MACHINE OPERATOR documented in this encounter Plan of Treatment Not on file documented as of this encounter Visit Diagnoses Not on filedocumented in this encounter Administered Medications Active Administered Medications - up to 3 most recent administrations Medication Order MAR Action Action Date Dose Rate Site 0.9 % sodium chloride ([facility] sodium chloride 0.9%) injection 10 mL, intravenous, As needed, line care, Starting on Sun07/16/24 at 1203, Indications: Maintain Patency of Indwelling Vascular CatheterIndications:Maint ain Patency of Indwelling Vascular Catheter Given 07/16/2024 10:35 AM SHAPING MACHINE OPERATOR 10 mL Left Antecubital inFLIXimab-dyyb (INFLECTRA) injection 500 mg 500 mg, intravenous, at 5 mL/hr, Every 4 weeks, First dose on Sun05/05/24 at 0000, 250ml/hr Use filter 1.2 micron or less, Indications: Crohn's DiseaseIndications:Crohn' s Disease Given 07/16/2024 10:35 AM SHAPING MACHINE OPERATOR 500 mg Left Antecubital documented in this [...] ntions Medications Disciplines: Custodial Management of medications 10/28/2023 Active 1 goal linked to scheduled/documen mauricio intervention 1 goal intervention scheduled/documen mauricio in this visit Monitor patient's vital signs every home health visit Disciplines: Skilled Disciplines, SN, PT, OT, AGRONOMY MANAGER, MANAGER MEETING Monitor patient's vital signs every visit. 10/28/2023 Active 1 goal linked to scheduled/documen mauricio intervention 2 goal interventions scheduled/documen mauricio in this visit Safety concerns Disciplines: Skilled Disciplines Alteration in safety 10/28/2023 Active 1 goal linked to scheduled/documen mauricio intervention 1 goal intervention scheduled/documen mauricio in this visit Specialty Medication - General Disciplines: Custodial Skilled Nurse to provide safe assessment of patient prior to use of general specialty medication 10/28/2023 Active - 3 problem interventions scheduled/documen mauricio in this visit Medications Disciplines: Custodial Management of IV Medications 10/28/2023 Active - [...] strategies to prevent infection: frequent/proper hand-washing techniques, [place] precautions, avoid crowds and persons with known infections, staying current with immunizations, s/s of infection, use of antibiotics and encourage adequate diet and fluid intake. Instruct patient on how to recognize signs and symptoms of infection and when to notify HH nurse and/or physician. Problem:Learning/Teac adi Needs - IV Therapy Completed Instructed patient in strategies to prevent infection: frequent/proper hand-washing techniques, [place] precautions, avoid crowds and persons with known [...] site. documented in this encounter Care Teams Absorption Plant Operator Relationship Specialty Start Date End Date Gucci Manrique MD PCP - General Family Medicine 07/06/20 Concetta Diop MD [address] [facility] DIV MEDICAL ONCOLOGY, [facility] [address] [place] [address] Surgeon Breast Surgery 08/28/23 documented as of this encounter
--- OUTSIDE RECORDS SUMMARY | 2024-08-16 07:44 | XMS_ITS | Encounter Summary ---
Author Organization [facility] Healthcare Address [address] [place] [address] Care Team Providers Care Supervisor Fireworks Assembly Name Role Phone Gucci Manrique MD Primary Care Provider + [phone] [place], Concetta Bowden MD Unavailable [phone] Encounter Details Date Type Department Care Team (Late st Contact Info) Description 01/08/2024 Orders Only [facility] Home Care Services [address] [place] [address] Ned Brasher, [facility] Social History Tobacco Use Types Packs/Day Years [...] on file Legal Sex Female 12:12 AM DIRECT CUSTOMER SERVICE REPRESENTATIVE Gender Identity Not on file Sexual Orientation Not on file 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 [...] for a weight gain/loss greater than 10% ([phone]). Current weight as of 10/10/23: 96.2 kg. [...] time LOT: 6 doses Please provide 1 fci visit every 4 weeks for 26 weeks [...] documented as of this encounter Care Teams Supervisor Fireworks Assembly Relationship Specialty Start Date End Date Gucci Manrique MD PCP - General Family Medicine 07/06/20 Concetta Diop MD [address] [facility] [address] DIV IM MEDICAL ONCOLOGY, [facility] [address] [place] [address] Surgeon Breast Surgery 08/28/23 documented as of this encounter
--- OUTSIDE RECORDS SUMMARY | 2024-08-16 07:44 | XMS_ITS | Encounter Summary ---
Author Organization [facility] Address [address] [place] [address] Care Team Providers Care Health Education Director Name Role Phone Ciera Saucedo BARBI Primary Care Provider [phone] Reason for Visit * Reason Onset Date Comments Medication Problem 06/30/2021 Need step up therapy per insurance Encounter Details Date Type Department Care Team (Late st Contact Info) Description 06/30/2021 Telephone [facility] Gastroenterology [facility] 1200 615 [facility] 1200 [place] [address] Shreya Platt MD 1001 [facility] 100 [place] [address] Medication Problem (Need step up [...] PCP office. I spoke with Freddie at [facility] [phone]//FAX: [phone] and she stated the patients insurance is requiring that Pennie needs to have tried and failed 6MP, Imuran, Methotrexate or oral steroids. Patient has been advised. Her pharmacy is attached. Please let us know how you would like to proceed. documented in this encounter Plan of Treatment Upcoming Encounters Date Type Department Care Team (Late st Contact Info) Description 09/22/2024 8:00 AM TICKET DISPENSER CHANGER Office Visit [facility] IBD and Gastroenterology Center [place] [address] [facility] [address] [place] [address] Shreya Platt MD [address] [place] [address] documented as of this encounter Visit Diagnoses Not on filedocumented in this encounter Care Teams Health Education Director Relationship Specialty Start Date End Date Ciera Saucedo FNP [address] [place] [address] PCP - General Nurse Practitioner Family 05/24/21 documented as of this encounter
--- OUTSIDE RECORDS SUMMARY | 2024-08-16 07:44 | XMS_ITS | Encounter Summary ---
Author Organization [facility] Healthcare Address [address] [place] [address] Care Team Providers Care Communications Maintainer Name Role Phone Gucci Manrique MD Primary Care Provider [phone] [place], Concetta Bowden MD Unavailable [phone] Reason for Visit * Reason Comments Crohn's Disease * Medication Authorization (Routine) - Pending Review Specialty Diagnoses / Procedures Referred By Contkarthikeyan t Referred To Contact Shreya Platt MD [address] [facility] 100 [place] [address] Phone: tel: fax: Referral ID Status Reason Start Date Expiration Date V isits Requested Visits Authorized [id number] Pending Review 02/26/2024 03/27/2025 1 1 Encounter Details Date Type Department Care Team (Latest Contact Info) Description 02/26/2024 9:00 AM CDT Home Care Visit [facility] [place] [address] [address] [place] [address] Dipti Loya RN SN INFUSION TREATMENT ROOM [...] on file Legal Sex Female 12:12 AM INCIDENT RESPONSE MANAGER Gender Identity Not on file Sexual Orientation Not on file 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 sodium chloride 0.9%) injection 10 [...] visit Disciplines: Skilled Disciplines, SN, PT, OT, EARLY CHILDHOOD LEAD TEACHER, 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 APPRENTICE Monitor patient's vital signs every visit. 10/28/2023 [...] Learning/Mira sorensen Needs - IV Therapy Disciplines: Long Term [...] strategies to prevent infection: frequent/proper hand-washing techniques, Boody precautions, avoid crowds and persons with known [...] Scheduled documented in this encounter Care Teams Communications Maintainer Relationship Specialty Start Date End Date Gucci Manrique MD PCP - General Family Medicine 07/06/20 Concetta Diop MD [address] [facility] [address] DIV MEDICAL ONCOLOGY, [facility] [address] [place] [address] Surgeon Breast Surgery 08/28/23 documented as of this encounter
--- OUTSIDE RECORDS SUMMARY | 2024-08-16 07:44 | XMS_ITS | Encounter Summary ---
Author Organization [facility] Address [address] [place] [address] Care Team Providers Care Senior Technical Recruiter Name Role Phone Ciera Saucedo BARBI Primary Care Provider [phone] Encounter Details Date Type Department Care Team (Late Contact Info) Description 06/08/2021 Abstract [facility] Gastroenterology [facility] [address] [facility] [address] [place] [address] Shreya Platt MD [address] [place] [address] Social History Tobacco Use Types [...] (Late Contact Info) Description 09/22/2024 8:00 AM FUR GLOSSER Office Visit [facility] IBD and Gastroenterology Center [place] [address] [place] [address] Shreya Platt MD [address] [facility] 100 [place] [address] documented as of this encounter Visit Diagnoses Not on filedocumented in this encounter Care Teams Senior Technical Recruiter Relationship Specialty Start Date End Date Ciera Saucedo FNP [address] [place] [address] PCP - General Nurse Practitioner Family 05/24/21 documented as of this encounter
--- OUTSIDE RECORDS SUMMARY | 2024-08-16 07:44 | XMS_ITS | Encounter Summary ---
Author Organization [facility] Address [address] [place] [address] Care Team Providers Care Emu Farm Worker Name Role Phone EhsandinorahCiera Primary Care Provider [phone] Reason for Referral * MRI (Routine) - Closed Specialty Diagnoses / Procedures Referred By Carolina song Referred To Contact Radiology Diagnoses Crohn's disease of small intestine without complication Procedures MRI ENTEROGRAPHY CHG MRI, ABDOMEN, COMBO CHG MRI, PELVIS, COMBO Shreya Platt MD [address] [address] [facility] [place] [address] Referral ID Status Reason Start Date Expiration Date V isits Requested Visits Authorized [id number] Closed [facility] CTS 06/10/2021 08/26/2021 1 1 Reason for Visit * MRI (Routine) - Closed Specialty Diagnoses / Procedures Referred By Carolina t Referred To Contact Radiology Diagnoses Crohn's disease of small intestine without complication Procedures MRI ENTEROGRAPHY CHG MRI, ABDOMEN, COMBO CHG MRI, PELVIS, Shreya Grace MD [address] [address] [address] [facility] [address] [place] [facility] [place] [address] Referral ID Status Reason Start Date Expiration Date V isits Requested Visits Authorized [id number] Closed [facility] CTS 06/10/2021 08/26/2021 1 1 Encounter Details Date Type Department Care Team (Latest Contact Info) Description 06/15/2021 7:15 AM CDT - 06/15/2021 11:59 PM CDT Hospital Encounter [facility] [address] [place] [address] Shreya Platt MD [address] [facility] 100 [place] [address] Discharge Disposition: Home or Self [...] IMS CT MRI Medication and Flush Protocol [facility] Approved by: [facility] - Medical Executive Committee Approval Date: 10/14/2020 ORDERS ARE ENTERED ???PER PROTOCOL?? Enter the protocol in the patient's electronic health record using [employer]: .imagingctmriprQuryon, Inc. Communication Orders: o For ordered imaging procedures [...] oral. May use nasoenteric tube if needed. Monument to 3 months Administer up to 90mL [...] the patient's nurse to CT ; ; [place] ; Administer 45mL of diluted Iohexol oral [...] than 55kg and confirm dose with radiologist. Monument to 15 years old Administer 2.2mL/kg (to [...] of NSF cases: o Gadodiamide (Omniscan?? - CallFire) o Gadopentetate dimeglumine (Magnevist?? - DesignHub) o Gadoversetamide (OptiMARK?? - Guerbet) Group II: Agents associated with few, if any, unconfounded cases of NSF: o Gadobenate dimeglumine (MultiHance?? - [employer]) o Gadobutrol (Gadavist?? - HardPoint [employer]; Gadovist in many countries) o Gadoteric acid (Dotarem?? - Guerbet, Clariscan - CallFire) Gadoteridol (ProHance?? - [employer]) Group III: Agents for which data remains limited regarding NSF risk, but for which few, if any unconfounded cases of NSF have been reported: Gadoxetate disodium (Eovist - DesignHub; Primovist in many countries) documented in this encounter Plan of Treatment Upcoming Encounters Date Type Department Care Team (Late st Contact Info) Description 09/22/2024 8:00 AM SPONSORSHIP MANAGER Office Visit [facility] IBD and Gastroenterology Center [place] [address] [place] [address] Shreya Platt MD [address] [place] [address] [place] [address] documented as of this encounter [...] enteric fistula. DICTATION LOCATION: Location 1 - [facility] Narrative 06/15/2021 11:00 AM CDT EXAMINATION: Abdominal [...] enteric fistula. DICTATION LOCATION: Location 1 - [facility] Shreya Platt MD MR ORDERABLES documented in [...] mL documented in this encounter Care Teams Emu Farm Worker Relationship Specialty Start Date End Date Ciera Saucedo FNP [address] [place] [address] PCP - General Nurse Practitioner Family 05/24/21 documented as of this encounter
--- OUTSIDE RECORDS SUMMARY | 2024-08-16 07:44 | XMS_ITS | Encounter Summary ---
Author Organization [facility] Address [address] [place] [address] Care Team Providers Care Top Polisher Name Role Phone Ciera Saucedo BARBI Primary Care Provider [phone] Encounter Details Date Type Department Care Team (Late Contact Info) Description 05/26/[address] [facility] Gastroenterology [place] [address] [address] Zoe Gomez, RN Social History [...] (Late Contact Info) Description 09/22/2024 8:00 AM LEAF STICKER Office Visit [facility] IBD and Gastroenterology [facility] [address] [facility] [address] [place] [address] Shreya Platt MD [address] [facility] [address] [place] [address] documented as of this encounter Visit Diagnoses Not on filedocumented in this encounter Care Teams Top Polisher Relationship Specialty Start Date End Date Ciera Saucedo FNP [address] [place] [address] PCP - General Nurse Practitioner Family 05/24/21 documented as of this encounter
--- OUTSIDE RECORDS SUMMARY | 2024-08-16 07:44 | XMS_ITS | Encounter Summary ---
Author Organization [facility] Address [address] [place] [address] Care Team Providers Care Television Installer Helper Name Role Phone Ciera Saucedo BARBI Primary Care Provider Encounter Details Date Type Department Care Team (Late Contact Info) Description 05/25/2021 Abstract [facility] Gastroenterology [facility] [address] [address] Emerald Valdez Social History Tobacco [...] (Late Contact Info) Description 09/22/2024 8:00 AM BLAST SETTER Office Visit [facility] IBD and Gastroenterology [facility] [address] [facility] [address] [place] [address] Shreya Platt MD [address] [place] [address] documented as of this encounter Visit Diagnoses Not on filedocumented in this encounter Care Teams Television Installer Helper Relationship Specialty Start Date End Date Ciera Saucedo FNP [address] [place] [address] PCP - General Nurse Practitioner Family 05/24/21 documented as of this encounter
--- OUTSIDE RECORDS SUMMARY | 2024-08-16 07:44 | XMS_ITS | Encounter Summary ---
Author Organization [facility] Healthcare Address [address] [place] [address] Care Team Providers Care Learning Services Coordinator Name Role Phone Gucci Manrique MD Primary Care Provider [phone] SchellsburgConcetta schwab MD Unavailable [phone] Encounter Details Date Type Department Care Team (Late st Contact Info) Description 05/21/2024 Home Care Visit [facility] [place] [address] [address] [place] [address] Bipin Leiva RN CASE COMMUNICATION Social History [...] on file Legal Sex Female 12:12 AM COORDINATE MEASURING MACHINE OPERATOR Gender Identity Not on file Sexual Orientation Not on file 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
--- OUTSIDE RECORDS SUMMARY | 2024-08-16 07:44 | XMS_ITS | Encounter Summary ---
Author Organization [facility] Address [address] [place] [address] Care Team Providers Care Overlocker Name Role Phone Ciera Saucedo BARBI Primary Care Provider [phone] Reason for Visit * Reason Onset Date Comments lab order 10/23/2021 Encounter Details Date Type Department Care Team (Late st Contact Info) Description 10/23/2021 Telephone [facility] IBD and Gastroenterology Center [address] [address] Shreya Platt MD [address] [facility] 100 [place] [address] lab order Social History Tobacco [...] Shreya Platt MD - 10/23/2021 6:45 AM APPRENTICE PAINTER BRUSH ----- Message from Liliya Carson sent at 10/12/2021 7:53 AM APPRENTICE PAINTER BRUSH ----- Regarding: TB Gold Please put in lab order for TB Gold.... Thank you!! ENTICE PAINTER BRUSH documented in this encounter Plan of Treatment Upcoming Encounters Date Type Department Care Team (Late st Contact Info) Description 09/22/2024 8:00 AM APPRENTICE PAINTER BRUSH Office Visit [facility] IBD and Gastroenterology Center [place] [address] [place] [address] Shreya Platt MD [address] [place] [address] documented as of this encounter Visit Diagnoses Diagnosis Crohn's disease of small and large intestines with complication- Primary documented in this encounter Care Teams Overlocker Relationship Specialty Start Date End Date Ciera Saucedo FNP [address] [place] [address] PCP - General Nurse Practitioner Family 05/24/21 documented as of this encounter
--- OUTSIDE RECORDS SUMMARY | 2024-08-16 07:44 | XMS_ITS | Encounter Summary ---
Author Organization [facility] Address [address] [place] [address] Care Team Providers Care World History Teacher Name Role Phone EhsanCiera copeland BARBI Primary Care Provider [phone] Reason for Referral * Outpatient Services (Routine) - Closed Specialty Diagnoses / Procedures Referred By Contac t Referred To Contact Hematology and Oncology Diagnoses Crohn's disease of small and large intestines with complication Procedures INFUSION THERAPY ME INJECTION, VEDOLIZUMAB Shreya Bray MD [address] [facility] 100 [place] [address] [facility] [id number] [place] [address] [address] [place] [address] Referral ID Status Reason Start Date Expiration Date Visits Re quested Visits Authorized [id number] Closed 05/25/2021 05/25/2022 1 0 Encounter Details Date Type Department Care Team (Latest Contact Info) Description 05/25/2021 Orders Only [facility] Gastroenterology [facility] [address] [facility] 1200 [place] [address] Emerald Valdez Crohn's disease of [...] st Contact Info) Description 09/22/2024 8:00 AM NEMATOLOGIST Office Visit [facility] IBD and Gastroenterology Center [place] [address] [facility] 180 [place] [address] Shreya Platt MD [address] [place] [address] documented as of this encounter Visit Diagnoses Diagnosis Crohn's disease of small and large intestines with complication- Primary documented in this encounter Care Teams World History Teacher Relationship Specialty Start Date End Date Ciera Saucedo FNP [address] [place] [address] PCP - General Nurse Practitioner Family 05/24/21 documented as of this encounter
--- OUTSIDE RECORDS SUMMARY | 2024-08-16 07:44 | XMS_ITS | Encounter Summary ---
Author Organization [facility] Address [address] [place] [address] Care Team Providers Care Duct Installer Name Role Phone Ehsandinorah Ciera BARBI Primary Care Provider [phone] Reason for Referral * CT Scan (Urgent) - Closed Specialty Diagnoses / Procedures Referred By Carolina song Referred To Contact Radiology Diagnoses Crohn's disease of small intestine with complication Procedures CT ENTEROGRAPHY W CONTRAST Shreya Platt MD [address] [facility] 100 [place] [address] Scan [address] [place] [address] Referral ID Status Reason Start Date Expiration Date Visits Re quested Visits Authorized [id number] Closed 02/10/2022 05/12/2022 1 1 * Eval and Treat (Routine) - Closed Specialty Diagnoses / Procedures Referred By Carolina song Referred To Contact Gastroenterology Diagnoses Crohn's disease of small intestine with complication Shreya Platt MD [address] [facility] 100 [place] [address] [facility] Ibd And Gastroenterology Center [address] [address] Referral ID Status Reason Start Date Expiration Date Visits Re quested Visits Authorized [id number] Closed 02/08/2022 02/08/2023 1 1 Reason for Visit * Reason Comments Follow Up Encounter Details Date Type Department Care Team (Latest Contact Info) Description 02/08/2022 12:00 PM CDT Office Visit [facility] IBD and Gastroenterology Center [address] [place] [address] Shreya Platt MD [address] [place] [address] Crohn's disease of small intestine [...] Platt MD - 02/08/2022 12:00 PM CDT [facility] Inflammatory Bowel Disease [...] She reports having transvaginal US at local [facility]. She was given diazepam for two 14 [...] biopsy. EGD showed mild gastritis no hpylori. [id number] daily. 10/2021 - started infliximab 12/2021 - ifx level 23, no ab. CRP 49 Sister has crohn's and I see her as well. She takes entyvio. (failed remicade and stelara) I have reviewed outside records today as part of this visit from [facility] Past Medical History: I updated [...] in the medical record. Shreya Platt MD [facility] Gastroenterology and Inflammatory Bowel Disease CC: Ciera Saucedo FNP Orders Placed This Encounter ??? CT ENTEROGRAPHY W CONTRAST ??? AMB REFERRAL TO PACKAGE YARNS DRYING MACHINE OPERATOR ??? cyclobenzaprine (FLEXERIL) 10 mg tablet Current [...] this is the preferred office to contact. [facility] [place] [address] Other important numbers to add to our contact info: After hours physician exchange: [phone] or MRI: Call [phone] To schedule an EGD/Colon/Flex Sig: Call [phone] IMPORTANT: The following information and instructions are from your visit today: 1. Schedule CT enterography [place]. [facility] Central Scheduling [phone] 2. Continue infliximab q4 weeks. 1. Return to clinic in 6 weeks with peggy and with in 3-4 months. Shreya Platt MD documented in this encounter Plan of Treatment Upcoming Encounters Date Type Department Care Team (Late st Contact Info) Description 09/22/2024 8:00 AM ABRASIVE MIXER Office Visit [facility] IBD and Gastroenterology Center [place] [address] [place] [address] Shreya Platt MD [address] [place] [address] Scheduled Referrals Name Type Priority Associated Diagnoses Orde r Schedule AMB REFERRAL TO PACKAGE YARNS DRYING MACHINE OPERATOR Outpatient Referral Routine Crohn's disease of small intestine with complication Ordered: 02/08/2022 documented as of this encounter Results * CT ENTEROGRAPHY W CONTRAST (02/17/2022 11:07 AM CDT) Anatomical Region Laterality Modality Chest Computed Tomogra phy 02/17/2022 11:2 6 AM CDT Impressions 02/17/2022 12:25 PM CDT IMPRESSION: ?? Unremarkable examination. No evidence of active bowel inflammation. DICTATION LOCATION: Location 2 - [facility] 02/17/2022 12:[address] ENTEROGRAPHY [...] evidence of active bowel inflammation. DICTATION LOCATION: [address] Shreya Platt MD CT ORDERABLES documented in this encounter Visit Diagnoses Diagnosis Crohn's disease of small intestine with complication Regional enteritis of small intestine Crohn's disease of small intestine with complication Regional enteritis of small intestine documented in this encounter Care Teams Duct Installer Relationship Specialty Start Date End Date Ciera Saucedo FNP [address] [place] [address] PCP - General Nurse Practitioner Family 05/24/21 documented as of this encounter
--- OUTSIDE RECORDS SUMMARY | 2024-08-16 07:44 | XMS_ITS | Encounter Summary ---
Author Organization [facility] Healthcare Address [address] [place] [address] Care Team Providers Care Park Worker Supervisor Name Role Phone Gucci Manrique MD Primary Care Provider [phone] Pretty PrairieConcetta MD Unavailable [phone] Reason for Referral * Medication Authorization (Routine) - Pending Review Specialty Diagnoses / Procedures Referred By Contac t Referred To Contact Shreya Platt MD [address] [address] Phone: tel: fax: Referral ID Status Reason Start Date Expiration Date V isits Requested Visits Authorized [id number] Pending Review 05/05/2024 06/04/2025 1 1 SE COLLECTOR SUPERVISOR Encounter Details Date Type Department Care Team (Late st Contact Info) Description 07/27/2024 Orders Only [facility] [address] [place] [address] Jennifer Vences, [facility] Crohn's colitis, other complication (HCC) (Primary [...] on file Legal Sex Female 12:12 AM REFUSE COLLECTOR SUPERVISOR Gender Identity Not on file Sexual Orientation Not on file 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
--- OUTSIDE RECORDS SUMMARY | 2024-08-16 07:44 | XMS_ITS | Encounter Summary ---
Author Organization [facility] Address 5 [facility] Attn: [place] [address] Care Team Providers Care Maintenance Department Technician Name Role Phone Ciera Saucedo BARBI Primary Care Provider [phone] Encounter Details Date Type Department Care Team [...] st Contact Info) Description 09/22/2024 8:00 AM QUANTITY SURVEYOR Office Visit [facility] IBD [facility] Gastroenterology [facility] [place] [address] [facility] [address] [place] [address] Shreya Platt MD [address] [facility] 100 [place] [address] documented as of this encounter Visit Diagnoses Not on filedocumented in this encounter Care Teams Maintenance Department Technician Relationship Specialty Start Date End Date Ciera Saucedo FNP [address] [place] [address] PCP - General Nurse Practitioner Family 05/24/21 documented as of this encounter
--- OUTSIDE RECORDS SUMMARY | 2024-08-16 07:44 | XMS_ITS | Encounter Summary ---
Author Organization [facility] Healthcare Address [address] [place] [address] Care Team Providers Care Acid Splicer Name Role Phone Gucci Manrique MD Primary Care Provider + [phone] [place] VillageConcetta MD Unavailable [phone] Reason for Visit * Medication Authorization (Routine) - Pending Review Specialty Diagnoses / Procedures Referred By Carolina t Referred To Contact Shreya Platt MD [address] [facility] [address] [place] [address] Phone: tel: fax: Referral ID Status Reason Start Date Expiration Date V isits Requested Visits Authorized [id number] Pending Review 06/18/2024 07/18/2025 1 1 Encounter Details Date Type Department Care Team (Latest Contact Info) Description 06/18/2024 9:00 AM CDT Home Care Visit [address] [place] [address] Leonila Grover RN SN INFUSION TREATMENT ROOM [...] on file Legal Sex Female 12:12 AM HOLTER SCANNING TECHNICIAN Gender Identity Not on file Sexual Orientation Not on file 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 She follows closely with FUR CUTTER Miguel Small. section is planned at 37 [...] or adverse infusion reaction. This RN called FUR CUTTER office with notification of abnormal b/p readings. [...] Site 0.9 % sodium chloride ([facility] sodium chloride 0.9%) injection 10 [...] ntions Medications Disciplines: Intermediate Management of medications 10/28/2023 Active 1 goal linked to scheduled/documen mauricio intervention 1 goal intervention scheduled/documen mauricio in this visit Monitor patient's vital signs every home health visit Disciplines: Skilled Disciplines, SN, PT, OT, ARCHIVIST ECONOMIC HISTORY, CRYPTOGRAPHIC TECHNICIAN Monitor patient's vital signs every visit. 10/28/2023 Active 1 goal linked to scheduled/documen mauricio intervention 2 goal interventions scheduled/documen mauricio in this visit Safety concerns Disciplines: Skilled Disciplines Alteration in safety 10/28/2023 Active 1 goal linked to scheduled/documen mauricio intervention 1 goal intervention scheduled/documen mauricio in this visit Specialty Medication - General Disciplines: Intermediate Skilled Nurse to provide safe assessment of patient prior to use of general specialty medication 10/28/2023 Active - 3 problem interventions scheduled/documen mauricio in this visit Medications Disciplines: Intermediate Management of IV Medications 10/28/2023 Active - [...] of care Completed Contacted MD Fernandez office ([phone]) and spoke with Sakina, office nurse and Irais Brody WHEEL SHOP SUPERVISOR regarding blood pressure readings outside of normal limits. Range 88/45 - 99/47. Order received to infuse 1L NS over one hour prior to initiation of infliximab. Post NS infusion b/p increased to 101/54 in right arm per manual regular adult cuff reading. Contact made and order to infuse infliximab received from Alessia CESAR. Patient to notify FUR CUTTER of abnormal readings r/t status for continued [...] strategies to prevent infection: frequent/proper hand-washing techniques, [place] precautions, avoid crowds and persons with known [...] discharge. documented in this encounter Care Teams Acid Splicer Relationship Specialty Start Date End Date Gucci Manrique MD PCP - General Family Medicine 07/06/20 Concetta Diop MD [address] [facility] [address] DIV IM MEDICAL ONCOLOGY, [facility] [address] [place] [address] Surgeon Breast Surgery 08/28/23 documented as of this encounter
--- OUTSIDE RECORDS SUMMARY | 2024-08-16 07:44 | XMS_ITS | Encounter Summary ---
Author Organization [facility] Address [address] [place] [address] Care Team Providers Care Transportation Mechanic Name Role Phone EhsandinorahÁngela BARBI Primary Care Provider Reason for Referral * Outpatient Services (Routine) - Closed Specialty Diagnoses / Procedures Referred By Contkarthikeyan t Referred To Contact Gastroenterology Diagnoses Crohn's disease of small intestine with complication Procedures INFUSION THERAPY Shreya Platt MD [address] [facility] 100 [place] [address] [facility] Ibd And Gastroenterology Center [facility] [address] Referral ID Status Reason Start Date Expiration Date Visits Re quested Visits Authorized [id number] Closed 02/08/2022 03/11/2023 1 1 Reason for Visit * Reason Onset Date Comments [facility] Premed orders 02/08/2022 Encounter Details Date Type Department Care Team (Late st Contact Info) Description 02/08/2022 Telephone [facility] IBD and Gastroenterology Center [address] [facility] [address] [place] [address] Shreya Platt MD [address] [facility] [address] [place] [address] [facility] Premed orders Social History Tobacco Use Types [...] PM CDT [facility] fax# [phone] * Telephone Encounter - Manuelito England RN - 02/08/2022 2:49 PM CDT [facility] Home Services ph# [phone] Called [facility] to update premed orders to reflect Tylenol 1000mg PO as needed, Claritin 10mg PO as needed, Benadryl 25mg PO as needed. No answer, LVM requesting CB. documented in this encounter Plan of Treatment Upcoming Encounters Date Type Department Care Team (Late st Contact Info) Description 09/22/2024 8:00 AM PRODUCTION FLOATER Office Visit [facility]astroenterology [facility] [place] [address] [place] [address] Shreya Platt MD [address] [place] [address] documented as of this encounter Visit Diagnoses Diagnosis Crohn's disease of small intestine with complication- Primary Regional enteritis of small intestine documented in this encounter Care Teams Transportation Mechanic Relationship Specialty Start Date End Date Ciera Saucedo FNP [address] [place] [address] PCP - General Nurse Practitioner Family 05/24/21 documented as of this encounter
--- OUTSIDE RECORDS SUMMARY | 2024-08-16 07:44 | XMS_ITS | Encounter Summary ---
Author Organization [facility] Healthcare Address [address] [place] [address] Care Team Providers Care Import/Export Specialist Name Role Phone Gucci Manrique MD Primary Care Provider + [phone] MoenkopiConcetta MD Unavailable [phone] Reason for Visit * Medication Authorization (Routine) - Pending Review Specialty Diagnoses / Procedures Referred By Carolina t Referred To Contact Shreya Platt MD [address] [facility] 100 [place] [address] Phone: tel: fax: Referral ID Status Reason Start Date Expiration Date V isits Requested Visits Authorized [id number] Pending Review 04/22/2024 05/22/2025 1 1 Encounter Details Date Type Department Care Team (Latest Contact Info) Description 04/22/2024 9:00 AM CDT Home Care Visit [address] [address] [place] [address] Gregor Ken RN SN NON OASIS RECERTIFICATION [...] on file Legal Sex Female 12:12 AM CHIEF DESIGN DRAFTER Gender Identity Not on file Sexual Orientation Not on file 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 Other disciplines ordered/recommended: None. Supply/HME/equipment needs or [...] Dose Rate Site 0.9 % sodium chloride ([facility] sodium chloride 0.9%) injection 10 [...] Visit Type -SN Non-OASIS Rec ert Discipline -Group Home Problems Problem Description Start Date Status Goals Interve ntions Medications Disciplines: Group Home Management of medications 10/28/2023 Active 1 goal linked to scheduled/documen mauricio intervention 1 goal intervention scheduled/documen mauricio in this visit Monitor patient's vital signs every home health visit Disciplines: Skilled Disciplines, SN, PT, OT, CONTAINER FINISHING INSPECTOR, ASP NET SOFTWARE DEVELOPER Monitor patient's vital signs every visit. 10/28/2023 Active 1 goal linked to scheduled/documen mauricio intervention 1 goal intervention scheduled/documen mauricio in this visit Safety concerns Disciplines: Skilled Disciplines Alteration in safety 10/28/2023 Active 1 goal linked to scheduled/documen mauricio intervention 1 goal intervention scheduled/documen mauricio in this visit Specialty Medication - General Disciplines: Group Home Skilled Nurse to provide safe assessment of patient prior to use of general specialty medication 10/28/2023 Active - 3 problem interventions scheduled/documen mauricio in this visit Medications Disciplines: Group Home Management of IV Medications 10/28/2023 Active - [...] Patient seen in treatment room at our [place] office but reports feeling safe at home [...] strategies to prevent infection: frequent/proper hand-washing techniques, [place] precautions, avoid crowds and persons with known infections, staying current with immunizations, s/s of infection, use of antibiotics and encourage adequate diet and fluid intake. Instruct patient on how to recognize signs and symptoms of infection and when to notify HH nurse and/or physician. Problem:Learning/Teac adi Needs - IV Therapy Completed SN instructed patient in strategies to prevent infection: frequent/proper hand-washing techniques, [place] precautions, avoid crowds and persons with known [...] well. documented in this encounter Care Teams Import/Export Specialist Relationship Specialty Start Date End Date Gucci Manrique MD PCP - General Family Medicine 07/06/20 ChikisConcetta MD [address] [facility] [address] DIV MEDICAL ONCOLOGY, [facility] [address] [place] [address] Surgeon Breast Surgery 08/28/23 documented as of this encounter
--- OUTSIDE RECORDS SUMMARY | 2024-08-16 07:44 | XMS_ITS | Encounter Summary ---
Author Organization [facility] Healthcare Address [address] [place] [address] Care Team Providers Care Global Security Architect Name Role Phone Gucci Manrique MD Primary Care Provider + [phone] [place], Concetta Bowden MD Unavailable [phone] Encounter Details Date Type Department Care Team (Late st Contact Info) Description 05/21/2024 Orders Only [facility] Home Care Services [address] [place] [address] Troy Ryan RPh Social History [...] on file Legal Sex Female 12:12 AM FURNITURE SALES CONSULTANT Gender Identity Not on file Sexual Orientation Not on file 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 Current weight as of 10/10/23: 96.2 kg. [...] time LOT: 6 doses Please provide 1 mcfp visit every 4 weeks for 26 weeks [...] on filedocumented in this encounter Care Teams Global Security Architect Relationship Specialty Start Date End Date Gucci Manrique MD PCP - General Family Medicine 07/06/20 Concetta Diop MD [address] [facility] [address] DIV IM MEDICAL ONCOLOGY, [address] [place] [address] Surgeon Breast Surgery 08/28/23 documented as of this encounter
--- OUTSIDE RECORDS SUMMARY | 2024-08-16 07:44 | XMS_ITS | Encounter Summary ---
Author Organization [facility] Address [address] [place] [address] Care Team Providers Care Rate Reviewer Name Role Phone Ciera Saucedo BARBI Primary Care Provider [phone] Encounter Details Date Type Department Care Team (Late st Contact Info) Description 10/11/2021 Chart Note [facility] Gastroenterology [facility] [address] [facility] [address] [place] [address] Emerald Valdez Social History Tobacco [...] 10:46 AM CST Spoke to Freddie from [employer] I will fax over a new order for inflectra since infliximab was denied CT [facility] documented in this encounter Plan of Treatment Upcoming Encounters Date Type Department Care Team (Late st Contact Info) Description 09/22/2024 8:00 AM DIRECT [facility] Office Visit [facility] IBD and Gastroenterology [place] [address] [place] [address] Shreya Platt MD [address] [facility] [address] [place] [address] documented as of this encounter Visit Diagnoses Not on filedocumented in this encounter Care Teams Rate Reviewer Relationship Specialty Start Date End Date Ciera Saucedo FNP [address] [place] [address] PCP - General Nurse Practitioner Family 05/24/21 documented as of this encounter
--- OUTSIDE RECORDS SUMMARY | 2024-08-16 07:44 | XMS_ITS | Referral Summary ---
Author Organization [facility] Address [address] [place] [address] Care Team Providers Care Shirt Sewer Name Role Phone Gucci Manrique MD Primary Care Provider [phone] [place], Concetta Bowden MD Unavailable [phone] Encounters Date Type Department Care Team Description 07/27/2024 Orders Only [facility] [address] [place] [address] Jennifer Vences, [facility] Crohn's colitis, other complication (HCC) (Primary Dx); Crohn's colitis, unspecified complication (HCC) 07/16/2024 9:00 AM APPLICATIONS CONSULTANT Home Care Visit [address] [place] [address] Bipin Leiva, RN SN INFUSION TREATMENT ROOM 06/18/2024 9:00 AM CDT Home Care Visit [address] [place] [address] Leonila Grover, AMADOU SN INFUSION TREATMENT ROOM 05/21/2024 Home Care Visit [address] [place] [address] Bipin Leiva, RN CASE COMMUNICATION 05/21/2024 Orders Only [facility] Home Care Services [address] [place] [address] Troy Ryan RPh 05/21/2024 9:00 AM CDT Home Care Visit [facility] - [address] [place] [address] Bipin Leiva RN SN INFUSION TREATMENT ROOM from Last 3 Months Allergies No known active allergies Medications 0.9 % sodium chloride ([facility] sodium chloride 0.9%) injectionIndic ations:[place] Patency [...] ORAL)Indicatio ns: Take 4 each by mouth pulmonary physician before breakfast. 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 Not on file Not on file Last Filed Vital Signs Vital Sign Reading Time Taken Comments Blood Pressure 123/71 07/16/2024 11:38 AM APPLICATIONS CONSULTANT Pulse 82 07/16/2024 11:38 AM APPLICATIONS CONSULTANT Temperature 36.4 ??C (97.6 ??F) 07/16/2024 11:[address] Respiratory Rate 16 07/16/2024 11:38 AM APPLICATIONS CONSULTANT Oxygen Saturation 100% 07/16/2024 11:38 AM APPLICATIONS CONSULTANT Inhaled Oxygen Concentration - - Weight 99.3 kg (219 lb) 06/18/2024 9:15 AM CDT Height 162.6 cm (5' 4 ) 07/16/2024 10:13 AM APPLICATIONS CONSULTANT Body Mass Index 37.59 05/21/2024 9:20 AM CDT Plan of Treatment Not on file Insurance Member Subscriber Plan / Payer (Ef fective 2024-Present) Name:Pennie Miner Relation to Subscriber:Child Name:SABAKRIS BLOOD Address: [facility] [place] [address] Payer ID:[id number] (NAIC) Group ID:[id number] Type:AETNA HMO/PPO Address: [address] [place] [address] Care Teams Shirt Sewer Relationship Specialty Start Date End Date Gucci Manrique MD PCP - General Family Medicine 07/06/20 [place] MD [address] [facility] [address] DIV IM MEDICAL ONCOLOGY, [facility] [address] [place] [address] Surgeon Breast Surgery 08/28/23
--- OUTSIDE RECORDS SUMMARY | 2024-08-16 07:44 | XMS_ITS | Encounter Summary ---
Author Organization [facility] Address [address] [place] [address] Care Team Providers Care Materials Manager Name Role Phone Ciera Saucedo BARBI Primary Care Provider [phone] Encounter Details Date Type Department Care Team (Late Contact Info) Description 02/20/2022 Orders Only [facility] IBD and Gastroenterology [place] [address] [place] [address] Knedra Brody, DARNELL [address] [place] [address] Social History Tobacco Use Types [...] st Contact Info) Description 09/22/2024 8:00 AM WEB MARKETING INTERN Office Visit [facility] IBD and Gastroenterology [facility] [address] [place] [address] Shreya Platt MD [address] [facility] [address] [place] [address] documented as of this encounter Visit Diagnoses Not on filedocumented in this encounter Care Teams Materials Manager Relationship Specialty Start Date End Date Ciera Saucedo FNP [address] [place] [address] PCP - General Nurse Practitioner Family 05/24/21 documented as of this encounter
--- OUTSIDE RECORDS SUMMARY | 2024-08-16 07:44 | XMS_ITS | Encounter Summary ---
Author Organization [facility] Healthcare Address [address] [place] [address] Care Team Providers Care Sales Planning Manager Name Role Phone Gucci Manrique MD Primary Care Provider + [phone] [place], Concetta Bowden MD Unavailable [phone] Reason for Visit * Reason Comments Crohn's Disease * Medication Authorization (Routine) - Pending Review Specialty Diagnoses / Procedures Referred By Contkarthikeyan t Referred To Contact Shreya Platt MD [address] [facility] [address] [place] [address] Phone: tel: fax: Referral ID Status Reason Start Date Expiration Date V isits Requested Visits Authorized [id number] Pending Review 03/25/2024 04/24/2025 1 1 Encounter Details Date Type Department Care Team (Latest Contact Info) Description 03/25/2024 9:00 AM CDT Home Care Visit [facility] [address] [address] [place] [address] Dipti Loya RN SN INFUSION TREATMENT ROOM [...] on file Legal Sex Female 12:12 AM LEATHER GOODS ASSEMBLER Gender Identity Not on file Sexual Orientation Not on file 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 10/28/2023 [...] strategies to prevent infection: frequent/proper hand-washing techniques, [place] precautions, avoid crowds and persons with known [...] Scheduled documented in this encounter Care Teams Sales Planning Manager Relationship Specialty Start Date End Date Gucci Manrique MD PCP - General Family Medicine 07/06/20 Concetta Diop MD [address] [facility] [address] DIV MEDICAL ONCOLOGY, [facility] [address] [place] [address] Surgeon Breast Surgery 08/28/23 documented as of this encounter
--- OUTSIDE RECORDS SUMMARY | 2024-08-16 07:44 | XMS_ITS | Encounter Summary ---
Author Organization [facility] Address 5 [facility] Attn: [place] [address] Care Team Providers Care Oncology Specialist Name Role Phone Cirea Saucedo BARBI Primary Care Provider [phone] Encounter Details Date Type Department Care Team [...] st Contact Info) Description 09/22/2024 8:00 AM SKEIN BLEACHER Office Visit [facility] IBD and Gastroenterology Center [place] [address] [place] [address] Shreya Platt MD [address] [place] [address] documented as of this encounter Visit Diagnoses Not on filedocumented in this encounter Care Teams Oncology Specialist Relationship Specialty Start Date End Date Ciera Saucedo FNP [address] [place] [address] PCP - General Nurse Practitioner Family 05/24/21 documented as of this encounter
--- OUTSIDE RECORDS SUMMARY | 2024-08-16 07:44 | XMS_ITS | Encounter Summary ---
Author Organization [facility] Address [address] [place] [address] Care Team Providers Care Liquid Chlorine Operator Name Role Phone Ciera Saucedo BARBI Primary Care Provider [phone] Reason for Visit * Reason Onset Date Comments Peer to peer 06/07/2021 Encounter Details Date Type Department Care Team (Late st Contact Info) Description 06/07/2021 Telephone [facility] Gastroenterology [facility] [address] [place] [address] [place] [address] Shreya Platt MD [address] [place] [address] [place] [address] Peer to peer Social History [...] want injectables. Will order inflixima b to [facility] infusion [phone]. Shreya Platt MD * Telephone Encounter - Davon Karyna - 06/07/2021 2:30 PM CDT Rec'd call from [facility] Environmental ManagerLorena Angela Entyvio has been denied (non-certified), peer to peer will need to be done. She is needing a contact number, dates and times so a call can be scheduled. Pleaseadvise. Reference # [id number] documented in this encounter Plan of Treatment Upcoming Encounters Date Type Department Care Team (Late st Contact Info) Description 09/22/2024 8:00 AM PRE PRESS OPERATOR Office Visit [facility] IBD and Gastroenterology Center [place] [address] [facility] [address] [place] [address] Shreya Platt MD [address] [facility] [address] [place] [address] documented as of this encounter Visit Diagnoses Not on filedocumented in this encounter Care Teams Liquid Chlorine Operator Relationship Specialty Start Date End Date Ciera Saucedo FNP [address] [place] [address] PCP - General Nurse Practitioner Family 05/24/21 documented as of this encounter
--- OUTSIDE RECORDS SUMMARY | 2024-08-16 07:44 | XMS_ITS | Encounter Summary ---
Author Organization [facility] Address [address] [place] [address] Care Team Providers Care Bush And Vine Fruit Crop Farmer Name Role Phone Ciera Saucedo BARBI Primary Care Provider [phone] Reason for Referral * Eval and Treat (Routine) - Closed Specialty Diagnoses / Procedures Referred By Contac t Referred To Contact Diagnoses Crohn's disease of small and large intestines with complication Shreya Platt MD [facility] [address] [place] [address] Zoe Gomez siding coreboard inspector ID Status Reason Start Date Expiration Date Visits Re quested Visits Authorized [id number] Closed 05/25/2021 05/25/2022 1 1 Encounter Details Date Type Department Care Team (Latest Contact Info) Description 05/25/2021 Orders Only [facility] Gastroenterology [facility] [address] [facility] [address] [place] [address] Emerald Valdez Crohn's disease of [...] st Contact Info) Description 09/22/2024 8:00 AM PHOTOGRAPHIC PROCESS ATTENDANT Office Visit [facility]astro[facility]ology [facility] Mobile [address] [place] [id number] Shreya Platt MD [address] [place] [address] Scheduled Referrals Name Type Priority Associated Diagnoses Orde r Schedule AMB REFERRAL TO NURSE NAVIGATOR Outpatient Referral Routine Crohn's disease of small and large intestines with complication Ordered: 05/25/2021 documented as of this encounter Visit Diagnoses Diagnosis Crohn's disease of small and large intestines with complication- Primary documented in this encounter Care Teams Bush And Vine Fruit Crop Farmer Relationship Specialty Start Date End Date Ciera Saucedo FNP [address] [place] [address] PCP - General Nurse Practitioner Family 05/24/21 documented as of this encounter
--- OUTSIDE RECORDS SUMMARY | 2024-08-16 07:44 | XMS_ITS | Encounter Summary ---
Author Organization [facility] Address [address] [place] [address] Care Team Providers Care Heating And Cooling Systems Engineer Name Role Phone Ciera Saucedo BARBI Primary Care Provider [phone] Reason for Referral * MRI (Routine) - Closed Specialty Diagnoses / Procedures Referred By Contac t Referred To Contact Radiology Diagnoses Crohn's disease of small intestine without complication Procedures MRI ENTEROGRAPHY CHG MRI, ABDOMEN, COMBO CHG MRI, PELVIS, COMBO Shreya Platt MD [address] [facility] [address] [place] [address] [facility] [address] [place] [address] Referral ID Status Reason Start Date Expiration Date V isits Requested Visits Authorized [id number] Closed ST CTS 06/10/2021 08/26/2021 1 1 Reason for Visit * Reason Comments Crohn's Disease Encounter Details Date Type Department Care Team (Latest Contact Info) Description 05/25/2021 9:00 AM CDT Office Visit [facility] Gastroenterology [facility] [address] [facility] [address] [place] [address] Shreya Platt MD [address] [facility] [address] [place] [address] Crohn's disease of small and [...] Platt MD - 05/25/2021 9:00 AM CDT [facility] Inflammatory [facility]el Disease [facility] Shreya Platt MD Chief Complaint Patient presents with ??? Crohn's Disease Pennie Aguila is a 20 y.o. female with hx of migraines and recent diagnosis of crohn's ileitis.She presents today with her Mom to establish care in the IBD clinic. In october she developed abdominal pain, mostly lower abdomen. She has ~6 stools daily. She had colonoscopy in [place] which showed ileitis (awaiting records of this). She has intermittent blood in the stools. She does have intermittent hemorrhoids. She also has epigastric abdominal pain. The EGD showed gastritis and she was started protonix 40mg daily. This has helped the epigastric pain significantly. GI Hx: Ileitis . Colon was normal with normal colon biopsy. EGD showed mild gastritis no hpylori. [id number] daily. Sister has crohn's and I see her as well. She take entyvio. (failed remicade and selara) I have reviewed outside records today as part of this visit from [facility] Past Medical History: I updated [...] Gatherings with Friends and Family: ??? Attends Anglican Services: ??? Active Member of Clubs or [...] booster. Recommendations: 1. Get MR enterography at [facility] 2. Get labs at [facility] 3. I will start the approval for Entyvio at [facility] infusion [phone]. This will be a week 0,2,6 then every 8 week infusion. 4. We will get records of your EGD/Colon with pathology reuslts form [facility] 03/2021. 5. Return to clinic in 2 months. Shreya Platt MD [facility] Gastroenterology and Inflammatory Bowel Disease CC: Ciera Saucedo, METAL TRADES INSTRUCTOR No ref. provider found Orders Placed This [...] entrusting your healthcare to the physicians at [facility] Gastroenterology. Following your visit, you may receive a survey via email or [employer]. We encourage you to respond tothis confidential survey about your care. Your feedback helps us to provide quality service at every visit. Thank you for your help in making our practice meet higher expectations! Contact information: Shreya Platt MD [facility] G[facility]enter[facility] [address] [facility] [place] [address] Please add our numbers to your contact list. ? After hours exchange: [phone] IMPORTANT: The following information and instructions are from your visit today: 1. Get MR enterography at [facility] 2. Get labs at [facility] 3. I will start the approval for Entyvio at [facility] infusion [phone]. This will be a week 0,2,6 then every 8 week infusion. 4. We will get records of your EGD/Colon with pathology [facility] 03/2021. 5. Return to clinic in 2 months. Shreya Platt MD documented in this encounter Plan of Treatment Upcoming Encounters Date Type Department Care Team (Late st Contact Info) Description 09/22/2024 8:00 AM DOCUMENT CONTROL SUPERVISOR Office Visit [facility] IBD and Gastroenterology Center [place] [address] [place] [address] Shreya Platt MD [address] [facility] [address] [place] [address] documented as of this encounter [...] formation, or enteric fistula. DICTATION LOCATION: Location [address] [place] [address] 06/15/2021 11:00 AM CDT EXAMINATION: Abdominal MRI [...] enteric fistula. DICTATION LOCATION: Location 1 - [facility] Shreya Platt MD MR ORDERABLES * (ABNORMAL) COMPREHENSIVE METABOLIC PANEL (05/25/2021 10:11 AM CDT) GLUCOSE 99 65 - 139 mg/dL [facility] Comment: ? Non-fasting reference interval BUN 16 7 - 25 mg/dL [facility] CREATININE 0.80 0.50 - 1.10 mg/dL [facility] GFR 105 > OR = 60 mL/min/1. 73m2 [facility] GFR, 121 > OR = 60 mL/min/1. 73m2 [facility] BUN/CREAT RATIO NOT APPLICABLE 6 - 22 (calc) [facility] SODIUM 138 135 - 146 mmol/L [facility] POTASSIUM 4.6 3.5 - 5.3 mmol/L [facility] CHLORIDE 105 98 - 110 mmol/L [facility] CO2 27 20 - 32 mmol/L [facility] CALCIUM 9.0 8.6 - 10.2 mg/dL [facility] TOTAL PROTEIN 6.9 6.1 - 8.1 g/dL [facility] ALBUMIN 3.8 3.6 - 5.1 g/dL [facility] GLOBULIN 3.1 1.9 - 3.7 g/dL (calc) [facility] ALBUMIN/GLOBULI N RATIO 1.2 1.0 - 2.5 (calc) [facility] BILIRUBIN TOTAL 0.2 0.2 - 1.2 mg/dL [facility] ALKALINE PHOSPHATASE 65 31 - 125 U/L [facility] AST 9(L) 10 - 30 U/L [facility] ALT 12 6 - 29 U/L [facility] Comment: Test Performed at: [facility] ??[address] Yonny Connors D.O., MPH Blood 05/25/2021 10:1 1 AM CDT 05/25/2021 10:11 AM CDT Shreya Platt MD CHEMISTRY ORDERAB LES [facility] [address] [place] [address] * (ABNORMAL) C-REACTIVE PROTEIN (05/25/2021 10:11 AM CDT) CRP 14.6(H) <8.0 mg/L [facility] Comment: FASTING:NO FASTING: NO Test Performed at: [facility] [address] [place], [place] ??[address] Yonny Connors D.O., MPH Blood 05/25/2021 10:1 1 AM CDT 05/25/2021 10:11 AM CDT Shreya Platt MD CHEMISTRY ORDERAB LES Performing Organization Address City/[facility] Co de Phone Number [facility] [address] [place] [address] * CBC WITH DIFFERENTIAL (05/25/2021 10:11 AM [...] % [facility] Comment: Test Performed at: [facility] [address] [place], [place] ??[address] Marce Pittman Blood 05/25/2021 10:1 1 AM CDT 05/25/2021 10:11 AM CDT Shreya [place]att MD HEMATOLOGY ORDERA BLES [facility] [address] [place] [address] documented in this encounter Visit Diagnoses Diagnosis Crohn's disease of small and large intestines with complication- Primary Crohn's disease of small intestine without complication Regional enteritis of small intestine Crohn's disease of small intestine with complication Regional enteritis of small intestine Crohn's disease of small intestine without complication Regional enteritis of small intestine documented in this encounter Care Teams Heating And Cooling Systems Engineer Relationship Specialty Start Date End Date Ciera Saucedo FNP [address] [place] [address] PCP - General Nurse Practitioner Family 05/24/21 documented as of this encounter
--- OUTSIDE RECORDS SUMMARY | 2024-08-16 07:44 | XMS_ITS | Encounter Summary ---
Author Organization [facility] Address [address] [facility] Attn: [place] [address] Care Team Providers Care Business And Services Instructor Name Role Phone Ciera Saucedo BARBI [...] st Contact Info) Description 09/22/2024 8:00 AM METAL GAUGE MAKER Office Visit [facility] IBD and Gastroenterology Center [place] [address] [place] [address] Shreya Platt MD [address] [place] [address] documented as of this encounter Visit Diagnoses Not on filedocumented in this encounter Care Teams Business And Services Instructor Relationship Specialty Start Date End Date Ciera Saucedo FNP [address] [place] [address] PCP - General Nurse Practitioner Family 05/24/21 documented as of this encounter
--- OUTSIDE RECORDS SUMMARY | 2024-08-16 07:44 | XMS_ITS | Encounter Summary ---
Author Organization [facility] Healthcare Address [address] [place] [address] Care Team Providers Care Mems Device Scientist Name Role Phone Gucci Manrique MD Primary Care Provider [phone] [place], Concetta Bowden MD Unavailable [phone] Encounter Details Date Type Department Care Team (Late st Contact Info) Description 04/22/2024 Plan of Care Documentation [facility] [address] [address] [address] [place] [id number] Social History Tobacco Use Types Packs/Day Years [...] on file Legal Sex Female 12:12 AM STONE PAVER Gender Identity Not on file Sexual Orientation Not on file 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 Not on file Not on file documented as of this encounter Miscellaneous Notes * [facility] Plan of Care Certification Statement - Bipin Leiva RN - 05/01/2024 2:33 PM CDT I recertify that the above stated patient has a continued need for intermittent half-way, physical therapy and/or speech or occupational therapy [...] on filedocumented in this encounter Care Teams Mems Device Scientist Relationship Specialty Start Date End Date Gucci Manrique MD PCP - General Family Medicine 07/06/20 Concetta Diop MD [address] [facility] [address] DIV MEDICAL ONCOLOGY, [facility] [address] [place] [address] Surgeon Breast Surgery 08/28/23 documented as of this encounter
--- OUTSIDE RECORDS SUMMARY | 2024-08-16 07:44 | XMS_ITS | Encounter Summary ---
Author Organization [facility] Address [address] [place] [address] Care Team Providers Care Political Science Instructor Name Role Phone Ehsandinorah Ciera BARBI Primary Care Provider [phone] Reason for Referral * CT Scan (Urgent) - Closed Specialty Diagnoses / Procedures Referred By Carolina song Referred To Contact Radiology Diagnoses Crohn's disease of small intestine with complication Procedures CT ENTEROGRAPHY W CONTRAST Shreya Platt MD [address] [facility] [address] [place] [address] Scan [address] [place] [address] Referral ID Status Reason Start Date Expiration Date Visits Re quested Visits Authorized [id number] Closed 02/10/2022 05/12/2022 1 1 Reason for Visit * Auth/Cert Specialty Diagnoses / Procedures Referred By Carolina song Referred To Contact Radiology [facility] [facility] Scan [address] [place] [address] Referral ID Status Reason Start Date Expiration Date Visits Re quested Visits Authorized [id number] 1 1 Encounter Details Date Type Department Care Team (Latest Contact Info) Description 02/17/2022 9:42 AM CDT - 02/17/2022 11:59 PM CDT Hospital Encounter [facility] CT Scan S [facility] [address] [place] [address] Shreya Platt MD [address] [place] [address] Discharge Disposition: Home or Self [...] IMS CT MRI Medication and Flush Protocol [facility] Approved by: [facility] - Medical Executive Committee Approval Date: 01/12/2022 [...] oral. May use nasoenteric tube if needed. Amelia to 3 months Administer up to 90mL [...] of NSF cases: o Gadodiamide (Omniscan?? - niiu) o Gadopentetate dimeglumine (Magnevist?? - Cardback) o Gadoversetamide (OptiMARK?? - Guerbet) Group II: Agents associated with few, if any, unconfounded cases of NSF: o Gadobenate dimeglumine (MultiHance?? - [employer]) o Gadobutrol (Gadavist?? - Cardback; Gadovist in many countries) o Gadoteric acid (Dotarem?? - Guerbet, Clariscan - niiu) Gadoteridol (ProHance?? - [employer]) Group III: Agents for which data remains limited regarding NSF risk, but for which few, if any unconfounded cases of NSF have been reported: Gadoxetate disodium (Eovist - Cardback; Primovist in many countries) documented in this encounter Miscellaneous Notes * Treatment Plan - Wendie Eldridge RT - 02/17/2022 10:30 AM CDT Images from the original note were not included. STL IMS CT MRI Medication and Flush Protocol [facility] Approved by: [facility] - Medical Executive Committee Approval Date: 01/12/2022 ORDERS ARE ENTERED ???PER PROTOCOL?? Enter the protocol in the patient's electronic health record using [employer]: .imagingctmriprotocol Communication Orders: o For ordered imaging [...] 300 mg/ml oral solution age appropriate guidelines Amelia Administer 45mL of diluted Iopamidol oral solution, [...] than 55kg and confirm dose with radiologist. Amelia to 15 years old Administer 2.2mL/kg (to [...] of NSF cases: o Gadodiamide (Omniscan?? - niiu) o Gadopentetate dimeglumine (Magnevist?? - Cardback) o Gadoversetamide (OptiMARK?? - Guerbet) Group II: Agents associated with few, if any, unconfounded cases of NSF: o Gadobenate dimeglumine (MultiHance?? - [employer]) o Gadobutrol (Gadavist?? - [employer]; Gadovist in many countries) o Gadoteric acid (Dotarem?? - Guerbet, Clariscan - niiu) Gadoteridol (ProHance?? - [employer]) Group III: Agents for which data remains limited regarding NSF risk, but for which few, if any unconfounded cases of NSF have been reported: Gadoxetate disodium (Eovist - Cardback; Primovist in many countries) * Result Encounter [...] Contact Info) Description 09/22/2024 8:00 AM ELECTRIC FURNACE OPERATOR Office Visit [facility] IBD and Gastroenterology Center [place] [address] [place] [address] Shreya Platt MD [address] [place] [address] documented as of this encounter [...] active bowel inflammation. DICTATION LOCATION: Location [facility] Narrative 02/17/2022 12:[address] ENTEROGRAPHY [...] evidence of active bowel inflammation. DICTATION LOCATION: [address] Shreya Platt MD CT ORDERABLES documented [...] mL documented in this encounter Care Teams Political Science Instructor Relationship Specialty Start Date End Date Ciera Saucedo FNP [address] [place] [address] PCP - General Nurse Practitioner Family 05/24/21 documented as of this encounter
--- OUTSIDE RECORDS SUMMARY | 2024-08-16 07:44 | XMS_ITS | Encounter Summary ---
Author Organization [facility] Healthcare Address [address] [place] [address] Care Team Providers Care Needle Process Felt Goods Supervisor Name Role Phone Gucci Manrique MD Primary Care Provider [phone] [place], Concetta Bowden MD Unavailable [phone] Reason for Visit * Medication Authorization (Routine) - Pending Review Specialty Diagnoses / Procedures Referred By Carolina t Referred To Contact Shreya Platt MD [address] [facility] [address] [place] [address] Phone: tel: fax: Referral ID Status Reason Start Date Expiration Date V isits Requested Visits Authorized Pending Review 01/31/2024 03/01/2025 1 1 Encounter Details Date Type Department Care Team (Latest Contact Info) Description 01/29/2024 9:00 AM CDT Home Care Visit [address] [address] [address] [place] [address] Gregor Ken RN SN INFUSION TREATMENT ROOM [...] on file Legal Sex Female 12:12 AM CALENDER OPERATOR HELPER Gender Identity Not on file Sexual Orientation Not on file 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 Not on file Not [...] Body Mass Index 35.87 10/10/2023 12:29 PM CALENDER OPERATOR HELPER documented in this encounter Miscellaneous Notes * [...] Dose Rate Site 0.9 % sodium chloride ([facility] sodium chloride 0.9%) injection [...] Type -SN Infusion Gail tment Room Discipline -Correction Problems Problem Description Start Date Status Goals Interve ntions Medications Disciplines: Correction Management of medications 10/28/2023 Active 1 goal linked to scheduled/documen mauricio intervention 1 goal intervention scheduled/documen mauricio in this visit Monitor patient's vital signs every home health visit Disciplines: Skilled Disciplines, SN, PT, OT, LEAD TEACHER, 4 H YOUTH DEVELOPMENT SPECIALIST Monitor patient's vital signs every visit. 10/28/2023 Active 1 goal linked to scheduled/documen mauricio intervention 1 goal intervention scheduled/documen mauricio in this visit Safety concerns Disciplines: Skilled Disciplines Alteration in safety 10/28/2023 Active 1 goal linked to scheduled/documen mauricio intervention 1 goal intervention scheduled/documen mauricio in this visit Specialty Medication - General Disciplines: Correction Skilled Nurse to provide safe assessment of patient prior to use of general specialty medication 10/28/2023 Active - 3 problem interventions scheduled/documen mauricio in this visit Medications Disciplines: Correction Management of IV Medications 10/28/2023 Active - 1 problem intervention scheduled/documen mauricio in this visit Learning/Teachin g Needs - IV Therapy Disciplines: Correction Teaching and learning needs for IV therapy [...] Patient seen in treatment room at our [place] office but reports feeling safe at home [...] strategies to prevent infection: frequent/proper hand-washing techniques, [place] precautions, avoid crowds and persons with known infections, staying current with immunizations, s/s of infection, use of antibiotics and encourage adequate diet and fluid intake. Instruct patient on how to recognize signs and symptoms of infection and when to notify HH nurse and/or physician. Problem:Learning/Teac adi Needs - IV Therapy Completed SN instructed patient in strategies to prevent infection: frequent/proper hand-washing techniques, [place] precautions, avoid crowds and persons with known [...] well. documented in this encounter Care Teams Needle Process Felt Goods Supervisor Relationship Specialty Start Date End Date Gucci Manrique MD PCP - General Family Medicine 07/06/20 Concetta Diop MD [address] [facility] [address] DIV IM MEDICAL ONCOLOGY, [address] [place] [address] Surgeon Breast Surgery 08/28/23 documented as of this encounter
--- OUTSIDE RECORDS SUMMARY | 2024-08-16 07:44 | XMS_ITS | Encounter Summary ---
Author Organization [facility] Healthcare Address [address] [place] [address] Care Team Providers Care Personnel Clerk Name Role Phone Gucci Manrique MD Primary Care Provider + [phone] BrimleyConcetta MD Unavailable [phone] Reason for Visit * Medication Authorization (Routine) - Pending Review Specialty Diagnoses / Procedures Referred By Carolina t Referred To Contact Shreya Platt MD [address] [facility] [address] [place] [address] Phone: tel: fax: Referral ID Status Reason Start Date Expiration Date V isits Requested Visits Authorized [id number] Pending Review 11/06/2023 12/05/2024 1 1 Encounter Details Date Type Department Care Team (Latest Contact Info) Description 11/06/2023 9:00 AM CDT Home Care Visit [address] [address] [address] [place] [address] Gregor Ken RN SN INFUSION TREATMENT ROOM [...] file Legal Sex Female 12:12 AM INSURANCE ASSOCIATE Gender Identity Not on file Sexual Orientation Not on file 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 Not on [...] Body Mass Index 36.39 10/10/2023 12:29 PM INSURANCE ASSOCIATE documented in this encounter Miscellaneous Notes * [...] Type -SN Infusion Gail tment Room Discipline -Residential Problems Problem Description Start Date Status Goals Interve ntions Medications Disciplines: Residential Management of medications 10/28/2023 Active 1 goal linked to scheduled/documen mauricio intervention 1 goal intervention scheduled/documen mauricio in this visit Monitor patient's vital signs every home health visit Disciplines: Skilled Disciplines, SN, PT, OT, SAFETY LEAD, MEDICAL OFFICE REPRESENTATIVE Monitor patient's vital signs every visit. 10/28/2023 Active 1 goal linked to scheduled/documen mauricio intervention 1 goal intervention scheduled/documen mauricio in this visit Safety concerns Disciplines: Skilled Disciplines Alteration in safety 10/28/2023 Active 1 goal linked to scheduled/documen mauricio intervention 1 goal intervention scheduled/documen mauricio in this visit Specialty Medication - General Disciplines: Residential Skilled Nurse to provide safe assessment of patient prior to use of general specialty medication 10/28/2023 Active - 3 problem interventions scheduled/documen mauricio in this visit Medications Disciplines: Residential Management of IV Medications 10/28/2023 Active - 1 problem intervention scheduled/documen mauricio in this visit Learning/Teachin g Needs - IV Therapy Disciplines: Residential Teaching and learning needs for IV therapy [...] Patient seen in treatment room at our [place] office but reports feeling safe at home [...] strategies to prevent infection: frequent/proper hand-washing techniques, [place] precautions, avoid crowds and persons with known infections, staying current with immunizations, s/s of infection, use of antibiotics and encourage adequate diet and fluid intake. Instruct patient on how to recognize signs and symptoms of infection and when to notify HH nurse and/or physician. Problem:Learning/Teac adi Needs - IV Therapy Completed SN instructed patient in strategies to prevent infection: frequent/proper hand-washing techniques, [place] precautions, avoid crowds and persons with known [...] well. documented in this encounter Care Teams Personnel Clerk Relationship Specialty Start Date End Date Gucci Manrique MD PCP - General Family Medicine 07/06/20 Concetta Diop MD [address] [facility] [address] DIV IM MEDICAL ONCOLOGY, [address] [place] [address] Surgeon Breast Surgery 08/28/23 documented as of this encounter
--- OUTSIDE RECORDS SUMMARY | 2024-08-16 07:44 | XMS_ITS | Clinical Summary ---
Author Organization [facility] Address [address] [place] [address] Care Team Providers Care Housekeeping/Laundry Supervisor Name Role Phone Gucci Manrique MD Primary Care Provider + [phone] Chikis, Concetta Bowden MD Unavailable [phone] Allergies No known active allergies Medications 0.9 % sodium chloride ([facility] sodium chloride 0.9%) injectionIndic ations:Maintai n Patency [...] ORAL)Indicatio ns: Take 4 each by mouth operational trainer before breakfast. Indications: Active ferrous sulfate 325 [...] Department Care Team Description 07/27/2024 Orders Only [facility] [address] [place] [address] Jennifer Vences [facility] Crohn's colitis, other complication (HCC) (Primary Dx); Crohn's colitis, unspecified complication (HCC) 07/16/2024 9:00 AM COMPLIANCE MANAGER Home Care Visit [address] [place] [address] Bipin Leiva RN SN INFUSION TREATMENT ROOM 06/18/2024 9:00 AM CDT Home Care Visit [address] [place] [address] Leonila Grover RN SN INFUSION TREATMENT ROOM 05/21/2024 9:00 AM CDT Home Care Visit [address] [place] [address] Bipin Leiva RN SN INFUSION TREATMENT ROOM 05/21/2024 Home Care Visit [facility] [address] [facility] [address] [place] [address] Bipin Leiva, AMADOU CASE COMMUNICATION 05/21/2024 Orders Only [facility] Home Care Services [address] [place] [address] Troy Ryan RPh from Last 3 Months [...] on file Legal Sex Female 12:12 AM COMPLIANCE MANAGER Gender Identity Not on file Sexual Orientation Not on file 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 on file Not on file Obstetrics History Last Filed Vital Signs Vital Sign Reading Time Taken Comments Blood Pressure 123/71 07/16/2024 11:38 AM COMPLIANCE MANAGER Pulse 82 07/16/2024 11:38 AM COMPLIANCE MANAGER Temperature 36.4 ??C (97.6 ??F) 07/16/2024 11:[address] Respiratory Rate 16 07/16/2024 11:38 AM COMPLIANCE MANAGER Oxygen Saturation 100% 07/16/2024 11:38 AM COMPLIANCE MANAGER Inhaled Oxygen Concentration - - Weight 99.3 kg (219 lb) 06/18/2024 9:15 AM CDT Height 162.6 cm (5' 4 ) 07/16/2024 10:13 AM COMPLIANCE MANAGER Body Mass Index 37.59 05/21/2024 9:20 AM [...] 10/07/1999 HPV Vaccines Completed 01/06/2014, 01/27/2013 Insurance [facility] SIGNATURE [facility] [place] [id number] Care Teams Housekeeping/Laundry Supervisor Relationship Specialty Start Date End Date Gucci Manrique MD PCP - General Family Medicine 07/06/20 Concetta Diop MD [address] [facility] [address] DIV IM MEDICAL ONCOLOGY, [facility] [address] [place] [address] Surgeon Breast Surgery 08/28/23
--- OUTSIDE RECORDS SUMMARY | 2024-08-16 07:44 | XMS_ITS | Encounter Summary ---
Author Organization [facility] Address [address] [place] [address] Care Team Providers Care Bookkeeping Clerk Name Role Phone Ciera Saucedo BARBI Primary Care Provider [phone] Encounter Details Date Type Department Care Team (Late Contact Info) Description 06/14/2021 Orders Only [facility] Gastroenterology [facility] [address] [facility] [address] [place] [address] Shreya Platt MD [address] [place] [address] Crohn's disease of small and [...] (Late Contact Info) Description 09/22/2024 8:00 AM SIZER MACHINE Office Visit [facility] IBD and Gastroenterology [facility] [address] [place] [address] Shreya Platt MD [address] [facility] [address] [place] [address] documented as of this encounter Visit Diagnoses Diagnosis Crohn's disease of small and large intestines with complication- Primary documented in this encounter Care Teams Bookkeeping Clerk Relationship Specialty Start Date End Date Ciera Saucedo FNP [address] [place] [address] PCP - General Nurse Practitioner Family 05/24/21 documented as of this encounter
--- OUTSIDE RECORDS SUMMARY | 2024-08-16 07:44 | XMS_ITS | Encounter Summary ---
Author Organization [facility] Healthcare Address [address] [place] [address] Care Team Providers Care Cooling Pan Tender Name Role Phone Gucci Manrique MD Primary Care Provider + [phone] [place], Concetta Bowden MD Unavailable [phone] Encounter Details Date Type Department Care Team (Late st Contact Info) Description 10/28/2023 Plan of Care Documentation [facility] Health [address] [address] [address] [place] [id number] Social History Tobacco Use Types Packs/Day Years [...] on file Legal Sex Female 12:12 AM MARKET RESEARCH SPECIALIST Gender Identity Not on file Sexual Orientation Not on file 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 Not on file Not on file documented as of this encounter Miscellaneous Notes * [facility] Plan of Care Certification Statement - Bipin Leiva RN - 11/06/2023 12:10 PM CDT I recertify that the above stated patient has a continued need for intermittent penitentiary, physical therapy and/or speech or occupational therapy [...] filedocumented in this encounter Care Teams Cooling Pan Tender Relationship Specialty Start Date End Date Gucci Manrique MD PCP - General Family Medicine 07/06/20 FloodwoodConcetta schwab MD [address] [facility] [address] DIV MEDICAL ONCOLOGY, [facility] [address] [place] [address] Surgeon Breast Surgery 08/28/23 documented as of this encounter
--- OUTSIDE RECORDS SUMMARY | 2024-08-16 07:44 | XMS_ITS | Encounter Summary ---
Author Organization [facility] Address [address] [facility] Attn: [place] [address] Care Team Providers Care Heat Treating Bluer Name Role Phone Ciera Saucedo BARBI Primary Care Provider [phone] Encounter Details Date Type Department Care Team [...] Contact Info) Description 09/22/2024 8:00 AM DIGITAL ASSISTANT Office Visit [facility] IBD and Gastroenterology Center [place] [address] [place] [address] Shreya Platt MD [address] [place] [address] documented as of this encounter Visit Diagnoses Not on filedocumented in this encounter Care Teams Heat Treating Bluer Relationship Specialty Start Date End Date Ciera Saucedo FNP [address] [place] [address] PCP - General Nurse Practitioner Family 05/24/21 documented as of this encounter
--- OUTSIDE RECORDS SUMMARY | 2024-08-16 07:44 | XMS_ITS | Encounter Summary ---
Author Organization [facility] Address [address] [place] [address] Care Team Providers Care Floor Supervisor Name Role Phone LouisneCiera Primary Care Provider [phone] Reason for Referral * Outpatient Services (Routine) - Closed Specialty Diagnoses / Procedures Referred By Contkarthikeyan t Referred To Contact Gastroenterology Diagnoses Crohn's disease of small intestine with complication Procedures INFUSION THERAPY Javier Nye MD [address] [place] [address] [place] [address] [facility] Ibd And Gastroenterology Center [facility] [address] [address] Referral ID Status Reason Start Date Expiration Date Visits Re quested Visits Authorized [id number] Closed 01/06/2022 02/06/2023 1 1 * Eval and Treat (Routine) - Closed Specialty Diagnoses / Procedures Referred By Contkarthikeyan t Referred To Contact Gastroenterology Diagnoses Crohn's disease of small intestine with complication Javier Nye MD [address] [facility] [address] [place] [address] [facility] Ibd And Gastroenterology Center [facility] [address] [address] Referral ID Status Reason Start Date Expiration Date Visits Re quested Visits Authorized [id number] Closed 01/03/2022 01/03/2023 1 1 Reason for Visit * Reason Onset Date Comments not doing well 12/28/2021 Encounter Details Date Type Department Care Team (Late st Contact Info) Description 12/28/2021 Telephone [facility] IBD and Gastroenterology Center [address] [place] [address] Javier Nye MD [address] [place] [address] not doing well Social History [...] call from [facility] Services # [phone], spoke to Aesmia They are needing a [...] st Contact Info) Description 09/22/2024 8:00 AM BOILERMAKER FITTER Office Visit [facility] IBD and Gastroenterology Center [place] [address] [place] [address] Javier Nye MD [address] [place] [address] Scheduled Referrals Name Type Priority [...] IC INFLIXIMAB AB, IBD <10 <10 [facility] INFLIXIMAB INTERPRETATION SEE NOTE [facility] [...] clinical equivalence studies, the FDA and the [place] Gastro[employer]ological Association advocate applying infliximab clinical guidance to the use of its biosimilars. The [place] Gastro[employer]ological Association recommends optimal infliximab trough concentration [...] treating healthcare professional should refer to the anesthesiology physician assistant's approved labeling for prescribing, warnings, side effects and other important information. INFLIXIMAB COMMENT SEE NOTE [facility] Comment: This test was developed and its analytical performance characteristics have been determined by [facility]. It has not been cleared or approved by FDA. This assay has been validated pursuant to the CLIA regulations and is used for clinical purposes. For additional information, please refer to https://education.LiftDNA.NanoVelos/faq/KKR553 (This link is being provided for informational/educational purposes only.) Test Performed at: [facility], [address] [place] ??[address] Aaliyah Esquivel MD,PhD,FATOU Blood 01/19/2022 12:4 5 PM CDT 01/19/2022 12:46 PM CDT Javier Nye MD CHEMISTRY ORDERAB LES [facility] [phone] * STOOL CULTURE W/SHIGA TOXIN (01/04/2022 9:58 AM CDT) CAMPY ANTIGEN, EIA SEE NOTE [facility] Comment: ??CAMPYLOBACTER SPP. AG,EIA ?Micro Number: ?[id number] ??Test Status: ? Final ??Specimen Source: ?? Stool ??Specimen Quality: ??Adequate ??Campy Ag Result: ?? Not Detected ??Reference Range: ?? Not Detected ?? E.COLI SHIGA TOXIN, EIA SEE NOTE [facility] Comment: ??SHIGA TOXINS, EIA W/RFL TO E.COLI O157 CULTURE ?Micro Number: ?[id number] ??Test Status: ? Final ??Specimen Source: ?? Stool ??Specimen Quality: ??Adequate ??Shiga Toxin: ? Not Detected ??Reference Range: ?? Not Detected ?? STOOL CULTURE SEE NOTE [facility] Comment: ??SALMONELLA AND SHIGELLA, CULTURE ?Micro Number: ?[id number] ??Test Status: ? Final ??Specimen Source: ?? Stool ??Specimen Quality: ??Adequate ??Result: ?No Salmonella or Shigella isolated Test Performed at: [facility] ??[address] [facility] Stool STOOL SPECIMEN / Unknown 01/04/2022 9:58 AM CDT 01/04/2022 9:59 AM CDT Javier Nye MD MICROBIOLOGY - NERAL ORDERABLES Performing Organization Address [facility] Co de Phone Number [facility] [phone] * C. DIFFICILE DETECTION (01/04/2022 9:58 AM CDT) C DIFFICILE TOXIN B QUAL NOT DETECTED NOT DETECTED [facility] Comment: This test is for use only with liquid or soft stools; performance characteristics of other clinical specimen types have not been established. This assay was performed by [facility] [facility]. The performance characteristics of this assay have been determined by [facility]. Performance characteristics refer to the analytical performance of the test. For additional information, please refer to http://education.Dextrys/faq/QWG766 (This link is being provided for informational/educational purposes only.) Test Performed at: [facility] [address] [place] ??[address] Yonny Connors D.O., MPH Stool STOOL SPECIMEN / Unknown 01/04/2022 9:58 AM CDT 01/04/2022 9:59 AM CDT Javier Nye MD MICROBIOLOGY - [facility] ORDERABLES [facility] [phone] * CALPROTECTIN, FECAL (01/04/2022 9:58 AM CDT) CALPROTECTIN, FECAL 49 mcg/g [facility] Comment: ?Reference Range: ?<50 ? Normal ?50-120 ??Borderline ?>120 ?Elevated Calprotectin in Crohn's disease and ulcerative colitis can be five to several thousand times above the reference population (50 mcg/g or less). Levels are usually 50 mcg/g or less in healthy patients and with irritable bowel syndrome. Repeat testing in 4-6 weeks is suggested for borderline values. Test Performed at: [facility], [address] [facility], [place] ??[address] Aaliyah Esquivel MD,PhD,FATOU Stool STOOL SPECIMEN / Unknown 01/04/2022 9:58 AM CDT 01/04/2022 9:59 AM CDT Javier Nye MD BODY FLUIDS AND S TOOLS [facility] [phone] * INFLIXIMAB LEVEL PANEL (12/30/2021 12:19 PM CDT) INFLIXIMAB LEVEL, IBD >50.0 mcg/mL [facility] INFLIXIMAB AB, IBD <10 <10 [facility] INFLIXIMAB INTERPRETATION SEE NOTE [facility] [...] clinical equivalence studies, the FDA and the [place] Gastro[employer]ological Association advocate applying infliximab clinical guidance to the use of its biosimilars. The [place] Gastro[employer]ological Association recommends optimal infliximab trough concentration [...] treating healthcare professional should refer to the anesthesiology physician assistant's approved labeling for prescribing, warnings, side effects and other important information. INFLIXIMAB COMMENT SEE NOTE [facility] Comment: This test was developed and its analytical performance characteristics have been determined by [facility]. It has not been cleared or approved by FDA. This assay has been validated pursuant to the CLIA regulations and is used for clinical purposes. For additional information, please refer to https://education.LiftDNA.NanoVelos/faq/QAA543 (This link is being provided for informational/educational purposes only.) Test Performed at: [facility], [address] [facility], [place] ??[phone] Aaliyah Esquivel MD,PhD,FATOU Blood 12/30/2021 12:1 9 PM CDT 12/30/2021 12:20 PM CDT Javier Nye MD CHEMISTRY ORDERAB LES [facility] [phone] * C-REACTIVE PROTEIN (12/30/2021 12:19 PM CDT) CRP 4.9 <8.0 mg/L [facility] Comment: Test [facility]formed at: [facility] ??[phone] Yonny Connors D.O., MPH Blood 12/30/2021 12:1 9 PM CDT 12/30/2021 12:20 PM CDT Javier Nye MD CHEMISTRY ORDERAB LES Performing Organization Address City/[facility]/ZIP Co de Phone Number [facility] [phone] * COMPREHENSIVE METABOLIC PANEL (12/30/2021 12:19 PM CDT) GLUCOSE 96 65 - 99 mg/dL [facility] Comment: ? Fasting reference interval BUN [...] N RATIO 1.4 1.0 - 2.5 (calc) [facility] BILIRUBIN TOTAL 0.3 0.2 - 1.2 mg/dL [facility] ALKALINE PHOSPHATASE 73 31 - 125 U/L [facility] AST 14 10 - 30 U/L [facility] ALT 19 6 - 29 U/L [facility] Comment: Test Performed at: [facility] [address] [place], [place] ??[address] Yonny Connors D.O., MPH Blood 12/30/2021 12:1 9 PM CDT 12/30/2021 12:20 PM CDT Javier Nye MD CHEMISTRY ORDERAB LES [facility] [phone] * CBC WITH DIFFERENTIAL (12/30/2021 12:19 PM CDT) WBC 6.0 3.8 - 10.8 Thousand/u L [facility] RBC 4.66 3.80 - 5.10 Million/uL [facility] HEMOGLOBIN 12.6 11.7 - 15.5 g/dL [facility] HEMATOCRIT 38.6 35.0 - 45.0 % [facility] MCV 82.8 80.0 - 100.0 fL [facility] MCH 27.0 27.0 - 33.0 pg [facility] MCHC 32.6 32.0 - 36.0 g/dL [facility] RDW 12.7 11.0 - 15.0 % [facility] PLATELETS 308 140 - 400 Thousand/u L [facility] MPV 10.5 7.5 - 12.5 fL [facility] NEUTROPHIL ABSOLUTE 2,550 1,500 - 7,800 cells/uL [facility] LYMPHOCYTE ABSOLUTE 2,988 850 - 3,900 cells/uL [facility] MONOCYTE ABSOLUTE 318 200 - 950 cells/uL [facility] EOSINOPHIL ABSOLUTE 102 15 - 500 cells/uL [facility] BASOPHILS ABSOLUTE 42 0 - 200 cells/uL [facility] NEUTROPHIL 42.5 % [facility] LYMPHOCYTES 49.8 % [facility] MONOCYTE 5.3 % [facility] EOSINOPHILS 1.7 % [facility] BASOPHILS 0.7 % [facility] Comment: Test Performed at: [facility] [address] [place], [place] ??[address] Yonny Connors D.O., MPH Blood 12/30/2021 12:1 9 PM CDT 12/30/2021 12:20 PM CDT Javier Nye MD HEMATOLOGY ORDERA SLOANES Performing Organization Address City/State/[facility] Co de Phone Number [facility] [phone] documented in this encounter Visit Diagnoses Diagnosis Crohn's disease of small intestine with complication- Primary Regional enteritis of small intestine documented in this encounter Additional Health Concerns Infection Onset Date Last Indicated Resolved Time R/O C. diff 01/05/2022 01/04/2022 01/05/2022 1:51 PM CDT documented as of this encounter Care Teams Floor Supervisor Relationship Specialty Start Date End Date Ciera Saucedo FNP [address] [place] [address] PCP - General Nurse Practitioner Family 05/24/21 documented as of this encounter
--- OUTSIDE RECORDS SUMMARY | 2024-08-16 07:45 | XMS_ITS | Encounter Summary ---
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 See last visit for most recent assessment. Reviewed insurance, medications and allergies. Order for recertification and custodial visits included with pharmacy order on 08/24/2022. documented in this encounter Plan of Treatment Not on file documented as of this encounter Visit Diagnoses Not on filedocumented in this encounter Home Health Visit - Care Plan Visit Details Visit Type -SN Non-OASIS Rec ert Discipline -Fpc Problems Problem Description Start Date Status Goals Interve ntions Medications Disciplines: Fpc Management of medications 11/08/2021 Active 1 goal linked to scheduled/documen mauricio intervention 6 goal interventions scheduled/documen mauricio in this visit Monitor patient's vital signs every home health visit Disciplines: SN, PT, OT, CARDIOVASCULAR SURGICAL TECH, CABLE INSTALLER REPAIRER, Skilled Disciplines Monitor patient's vital signs every [...] strategies to prevent infection: frequent/proper hand-washing techniques, [place] precautions, avoid crowds and persons with known [...] Scheduled documented in this encounter Care Teams Rn Care Transition Relationship Specialty Start Date End Date Gucci Manrique MD PCP - General Family Medicine 07/06/20 documented as of this encounter
--- OUTSIDE RECORDS SUMMARY | 2024-08-16 07:45 | XMS_ITS | Encounter Summary ---
Author Organization [facility] Home Care Servic es Address [address] [place] [address] Phone Care Team Providers Care Six Color Press Operator Name Role Phone Gucci Manrique MD Primary Care Provider + [phone] [place], Concetta Bowden MD Unavailable [phone] Reason for Visit * Medication Authorization (Routine) - Pending Review Specialty Diagnoses / Procedures Referred By Contac t Referred To Contact Shreya Platt MD [address] [facility] [address] [place] [address] Phone: tel: fax: Referral ID Status Reason Start Date Expiration Date V isits Requested Visits Authorized [id number] Pending Review 10/16/2023 11/14/2024 1 1 Encounter Details Date Type Department Care Team (Latest Contact Info) Description 10/16/2023 12:00 PM COMPOUND COATING MACHINE OFFBEARER Home Care Visit [facility] [address] [address] [address] [place] [address] Gregor Ken RN SN INFUSION TREATMENT ROOM [...] on file Legal Sex Female 12:12 AM COMPOUND COATING MACHINE OFFBEARER Gender Identity Not on file Sexual Orientation Not on file 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 Not on file Not on file documented as of this encounter Last Filed Vital Signs Vital Sign Reading Time Taken Comments Blood Pressure 110/66 10/16/2023 1:45 PM COMPOUND COATING MACHINE OFFBEARER Pulse 70 10/16/2023 1:45 PM COMPOUND COATING MACHINE OFFBEARER Temperature 36.5 ??C (97.7 ??F) 10/16/2023 1:45 PM CS T Respiratory Rate 16 10/16/2023 1:45 PM COMPOUND COATING MACHINE OFFBEARER Oxygen Saturation 99% 10/16/2023 1:45 PM COMPOUND COATING MACHINE OFFBEARER Inhaled Oxygen Concentration - - Weight 99.3 kg (219 lb) 10/16/2023 12:15 PM COMPOUND COATING MACHINE OFFBEARER Height - - Body Mass Index 37.59 10/10/2023 12:29 PM COMPOUND COATING MACHINE OFFBEARER documented in this encounter Miscellaneous Notes * Home Health Plan for Next Visit - Gregor Ken RN - 10/16/2023 1:39 PM CST Reason for today's visit: Assessment, PIV, dose Venofer. Discuss plan of care with patient. Discharge planning ongoing. Plan for next visit: Assessment, PIV, dose Venofer. OUND COATING MACHINE OFFBEARER documented in this encounter Plan of Treatment Not on file documented as of this encounter Visit Diagnoses Not on filedocumented in this encounter Administered Medications Active Administered Medications - up to 3 most recent administrations Medication Order MAR Action Action Date Dose Rate Site 0.9 % sodium chloride ([facility] sodium chloride 0.9%) injection 10 mL, intravenous, As needed, line care, Starting on Sun10/16/23 at 1331, Indications: Maintain Patency of Indwelling Vascular CatheterIndications:Maintain Patency of Indwelling Vascular Catheter Given 10/16/2023 12:20 PM COMPOUND COATING MACHINE OFFBEARER 10 mL iron sucrose complex (VENOFER IV) 300 mg, intravenous, Every 7 days, First dose on Sun10/16/23 at 1415, Infuse 300 mg of Iron Sucrose in 250 ml Normal Saline over 90 minutes at 167 mL/hr. Given 10/16/2023 12:20 PM COMPOUND COATING MACHINE OFFBEARER 300 mg documented in this encounter Home [...] health visit Disciplines: SN, PT, OT, MOTOR VEHICLE OPERATOR ROAD SUPERVISOR, BICYCLE FITTER, Skilled Disciplines Monitor patient's vital signs every [...] Patient seen in treatment room at our [place] office but reports feeling safe at home [...] strategies to prevent infection: frequent/proper hand-washing techniques, [place] precautions, avoid crowds and persons with known infections, staying current with immunizations, s/s of infection, use of antibiotics and encourage adequate diet and fluid intake. Instruct patient on how to recognize signs and symptoms of infection and when to notify HH nurse and/or physician. Problem:Learning/Teac adi Needs - IV Therapy Completed SN instructed patient in strategies to prevent infection: frequent/proper hand-washing techniques, [place] precautions, avoid crowds and persons with known [...] well. documented in this encounter Care Teams Six Color Press Operator Relationship Specialty Start Date End Date Gucci Manrique MD PCP - General Family Medicine 07/06/20 Concetta Diop MD [address] [facility] [address] DIV IM MEDICAL ONCOLOGY, [address] [place] [address] Surgeon Breast Surgery 08/28/23 documented as of this encounter
--- OUTSIDE RECORDS SUMMARY | 2024-08-16 07:45 | XMS_ITS | Encounter Summary ---
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
--- OUTSIDE RECORDS SUMMARY | 2024-08-16 07:45 | XMS_ITS | Encounter Summary ---
Author Organization [facility] Home Care Servic es Address [address] [place] [address] Phone Care Team Providers Care Tie Presser Name Role Phone Gucci Manrique MD Primary Care Provider + [phone] [place] LakesConcetta MD Unavailable [phone] Reason for Visit * Medication Authorization (Routine) - Pending Review Specialty Diagnoses / Procedures Referred By Contac t Referred To Contact Shreya Platt MD [address] [facility] [address] [place] [address] Phone: tel: fax: Referral ID Status Reason Start Date Expiration Date V isits Requested Visits Authorized [id number] Pending Review 10/09/2023 11/07/2024 1 1 Encounter Details Date Type Department Care Team (Latest Contact Info) Description 10/09/2023 9:00 AM VENDING MECHANIC Home Care Visit [facility] [address] [address] [address] [place] [address] Jhon Jurado RN SN INFUSION TREATMENT ROOM [...] on file Legal Sex Female 12:12 AM VENDING MECHANIC Gender Identity Not on file Sexual Orientation Not on file 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 ING MECHANIC * Home Health Plan for Next Visit - Jhon Jurado RN - 10/09/2023 10:14 AM CST Reason for today's visit -- inflectra and iron sucrose infusions Discuss plan of care with the patient Discharge planning - ongoing Plan for next visit in 8 weeks for same ING MECHANIC documented in this encounter Plan of Treatment Not on file documented as of this encounter Visit Diagnoses Not on filedocumented in this encounter Administered Medications Active Administered Medications - up to 3 most recent administrations Medication Order MAR Action Action Date Dose Rate Site 0.9 % sodium chloride ([facility] sodium chloride 0.9%) injection 10 mL, intravenous, As needed, line care, Starting on Sun10/09/23 at 1009, Indications: Maintain Patency of Indwelling Vascular CatheterIndications:Maintain Patency of Indwelling Vascular Catheter Given 10/09/2023 10:09 AM VENDING MECHANIC 10 mL iron sucrose complex (VENOFER IV) 300 mg, intravenous, Every 7 days, First dose on Sun10/09/23 at 1200, Infuse 300 mg of Iron Sucrose in 250 ml Normal Saline over 90 minutes at 167 mL/hr. Given 10/09/2023 11:11 AM VENDING MECHANIC 300 mg Inactive Administered Medications - up to 3 most recent administrations Medication Order MAR Action Action Date Dose Rate Site acetaminophen (TYLENOL) 500 mg tablet 1,000 mg, oral, Every 4 weeks, First dose on Sun10/09/23 at 1130, Please give 1000mg of acetaminophen (Tylenol) 30 minutes prior to Inflectra infusion, Indications: infusion reaction prophylaxisIndications:infusion reaction prophylaxis Given 10/09/2023 10:09 AM VENDING MECHANIC 2 tablets inFLIXimab-dyyb 500 mg in sodium chloride 0.9% 0.9% IVPB 500 mg, intravenous, Every 4 weeks, First dose on Sun10/09/23 at 1130, Infuse 500mg Infliximab in 250mL Normal Saline over 2 hours with 1.2 micron filter every 4 weeks., Indications: Crohn's DiseaseIndications:Crohn's Disease Given 10/09/2023 10:09 AM VENDING MECHANIC 500 mg loratadine 10 mg capsule 10 mg, oral, Every 4 weeks, First dose on Sun10/09/23 at 1130, Please give 10mg of loratadine (Claritin) 30 minutes prior to Inflectra infusion, Indications: infusion reaction prophylaxisIndications:infusion reaction prophylaxis Given 10/09/2023 10:09 AM VENDING MECHANIC 10 mg documented in this encounter Home [...] home health visit Disciplines: SN, PT, OT, MANAGER STORE, WEATHERIZATION INSTALLER, Skilled Disciplines Monitor patient's vital signs [...] strategies to prevent infection: frequent/proper hand-washing techniques, [place] precautions, avoid crowds and persons with known [...] Scheduled documented in this encounter Care Teams Tie Presser Relationship Specialty Start Date End Date Gucci Manrique MD PCP - General Family Medicine 07/06/20 ChikisConcetta schwab MD [address] [facility] [address] DIV MEDICAL ONCOLOGY, [facility] [address] [place] [address] Surgeon Breast Surgery 08/28/23 documented as of this encounter
--- OUTSIDE RECORDS SUMMARY | 2024-08-16 07:45 | XMS_ITS | Encounter Summary ---
Author Organization [facility] Home Care Servic es Address [address] [place] [address] Phone Care Team Providers Care Wire Fence Builder Name Role Phone Gucci Manrique MD Primary Care Provider [phone] Reason for Visit * Reason Comments Crohn's Disease * Medication Authorization (Routine) - Closed Specialty Diagnoses / Procedures Referred By Carolina song Referred To Contact Shreya Platt MD [address] [facility] [address] [place] [address] Phone: tel: fax: Referral ID Status Reason Start Date Expiration Date Visits Re quested Visits Authorized [id number] Closed 01/11/2023 02/10/2024 1 1 Encounter Details Date Type Department Care Team (Latest Contact Info) Description 01/11/2023 9:00 AM CDT Home Care Visit [facility] Health [address] [address] [address] [place] [address] Bipin Leiva RN SN INFUSION TREATMENT ROOM [...] on file Legal Sex Female 12:12 AM SHALE MINER BLASTING Gender Identity Not on file Sexual Orientation Not on file 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 Instruct patient on how to recognize signs and symptoms of infection and when to notify HH nurse and/or physician. Problem:Learning/Teac adi Needs - IV Therapy Completed Patient instructed on frequent/proper hand-washing techniques, [place] precautions, avoid crowds and persons with known [...] site. documented in this encounter Care Teams Wire Fence Builder Relationship Specialty Start Date End Date Gucci Manrique MD PCP - General Family Medicine 07/06/20 documented as of this encounter
--- OUTSIDE RECORDS SUMMARY | 2024-08-16 07:45 | XMS_ITS | Encounter Summary ---
Author Organization [facility] Home Care Servic es Address [address] [place] [address] Phone Care Team Providers Care Community Education Specialist Name Role Phone Gucci Manrique MD Primary Care Provider [phone] Reason for Visit * Reason Comments Crohn's Disease * Medication Authorization (Routine) - Closed Specialty Diagnoses / Procedures Referred By Carolina song Referred To Contact Shreya Platt MD [address] [facility] [address] [place] [address] Phone: tel: fax: Referral ID Status Reason Start Date Expiration Date Visits Re quested Visits Authorized [id number] Closed 07/03/2023 08/01/2024 1 1 Encounter Details Date Type Department Care Team (Latest Contact Info) Description 07/03/2023 9:00 AM MILL AND COAL TRANSPORT OPERATOR Home Care Visit [facility] [address] [address] [address] [place] [address] Bipin Leiva RN SN INFUSION TREATMENT ROOM [...] on file Legal Sex Female 12:12 AM MILL AND COAL TRANSPORT OPERATOR Gender Identity Not on file Sexual Orientation Not on file 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 on file Not on file documented as of this encounter Last Filed Vital Signs Vital Sign Reading Time Taken Comments Blood Pressure 116/67 07/03/2023 12:00 PM MILL AND COAL TRANSPORT OPERATOR Pulse 64 07/03/2023 12:00 PM MILL AND COAL TRANSPORT OPERATOR Temperature 36.3 ??C (97.4 ??F) 07/03/2023 12:[address] Respiratory Rate 18 07/03/2023 12:00 PM MILL AND COAL TRANSPORT OPERATOR Oxygen Saturation 100% 07/03/2023 12:00 PM MILL AND COAL TRANSPORT OPERATOR Inhaled Oxygen Concentration - - Weight - - Height 162.6 cm (5' 4 ) 07/03/2023 9:15 AM MILL AND COAL TRANSPORT OPERATOR Body Mass Index - - documented in this encounter Miscellaneous Notes * Home Health Visit Narrative - Bipin Leiva RN - 07/03/2023 12:00 AM MILL AND COAL TRANSPORT OPERATOR Patient Covid screen performed prior to arrival. [...] EMS if complications occur. Patient verbalizes understanding. AND COAL TRANSPORT OPERATOR documented in this encounter Plan of Treatment Not on file documented as of this encounter Visit Diagnoses Not on filedocumented in this encounter Administered Medications Active Administered Medications - up to 3 most recent administrations Medication Order MAR Action Action Date Dose Rate Site 0.9 % sodium chloride ([facility] sodium chloride 0.9%) injection 10 mL, intravenous, As needed, line care, Starting on Sun07/03/23 at 1136, Indications: Maintain Patency of Indwelling Vascular CatheterIndications:Maintain Patency of Indwelling Vascular Catheter Given 07/03/2023 9:50 AM MILL AND COAL TRANSPORT OPERATOR 10 mL Left Hand Inactive Administered Medications - up to 3 most recent administrations Medication Order MAR Action Action Date Dose Rate Site acetaminophen (TYLENOL) 500 mg tablet 1,000 mg, oral, Every 4 weeks, First dose on Sun07/03/23 at 1245, Please give 1000mg of acetaminophen (Tylenol) 30 minutes prior to Inflectra infusion, Indications: infusion reaction prophylaxisIndications:infusi on reaction prophylaxis Given 07/03/2023 9:10 AM MILL AND COAL TRANSPORT OPERATOR 1,000 mg inFLIXimab-dyyb 500 mg in sodium chloride 0.9% 0.9% IVPB 500 mg, intravenous, Every 4 weeks, First dose on Sun07/03/23 at 1245, Infuse 500mg Infliximab in 250mL Normal Saline over 2 hours with 1.2 micron filter every 4 weeks., Indications: Crohn's DiseaseIndications:Crohn's Disease Given 07/03/2023 9:50 AM MILL AND COAL TRANSPORT OPERATOR 500 mg Left Hand loratadine 10 mg capsule 10 mg, oral, Every 4 weeks, First dose on Sun07/03/23 at 1245, Please give 10mg of loratadine (Claritin) 30 minutes prior to Inflectra infusion, Indications: infusion reaction prophylaxisIndications:infusi on reaction prophylaxis Given 07/03/2023 9:10 AM MILL AND COAL TRANSPORT OPERATOR 10 mg documented in this encounter Home Health Visit - Care Plan Visit Details Visit Type -SN Infusion Gail tment Room Discipline -Prison Problems Problem Description Start Date Status Goals Interve ntions Medications Disciplines: Prison Management of medications 11/08/2021 Active 1 goal linked to scheduled/documen mauricio intervention 6 goal interventions scheduled/documen mauricio in this visit Monitor patient's vital signs every home health visit Disciplines: SN, PT, OT, FILLER SHREDDER HELPER, DIRECTOR OPERATING ROOM, Skilled Disciplines Monitor patient's vital signs every visit. 11/08/2021 Active 1 goal linked to scheduled/documen mauricio intervention 2 goal interventions scheduled/documen mauricio in this visit Safety concerns Disciplines: Skilled Disciplines Alteration in safety 11/08/2021 Active 1 goal linked to scheduled/documen mauricio intervention 1 goal intervention scheduled/documen mauricio in this visit Specialty Medication - General Disciplines: Prison SN to provide safe assessment of patient prior to use of general specialty medication 11/08/2021 Active - 2 problem interventions scheduled/documen mauricio in this visit Learning/Teachin g Needs - IV Therapy Disciplines: Prison Teaching and learning needs for IV therapy [...] strategies to prevent infection: frequent/proper hand-washing techniques, [place] precautions, avoid crowds and persons with known infections, staying current with immunizations, s/s of infection, use of antibiotics and encourage adequate diet and fluid intake. Instruct patient on how to recognize signs and symptoms of infection and when to notify HH nurse and/or physician. Problem:Learning/Teac adi Needs - IV Therapy Completed Patient instructed on frequent/proper hand-washing techniques, [place] precautions, avoid crowds and persons with known [...] site. documented in this encounter Care Teams Community Education Specialist Relationship Specialty Start Date End Date Gucci Manrique MD PCP - General Family Medicine 07/06/20 documented as of this encounter
--- OUTSIDE RECORDS SUMMARY | 2024-08-16 07:45 | XMS_ITS | Encounter Summary ---
Author Organization [facility] Healthcare Address [address] [place] [address] Care Team Providers Care Crochet Machine Operator Name Role Phone Gucci Manrique MD Primary Care Provider + [phone] Old FortConcetta schwab MD Unavailable [phone] Encounter Details Date Type Department Care Team (Latest Contact Info) Description 10/28/2023 8:45 AM SHOT PEEN OPERATOR Home Care Visit [address] [address] [address] [place] [address] Bipin Leiva, AMADOU CUTOV SBO SN NON [...] on file Legal Sex Female 12:12 AM SHOT PEEN OPERATOR Gender Identity Not on file Sexual Orientation Not on file 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 Infusion given over two hours by PIV. Patient recertified outside of face to face visit. See last visit for most recent assessment. Reviewed insurance, medications and allergies. Order for recertification and [facility] visits included with pharmacy order on 10/09/2023. PEEN OPERATOR documented in this encounter Plan of [...] visit Disciplines: Skilled Disciplines, SN, PT, OT, INSTRUMENT INSPECTOR, RELISH BLENDER Monitor patient's vital signs every visit. 10/28/2023 [...] strategies to prevent infection: frequent/proper hand-washing techniques, [employer] precautions, avoid crowds and persons with known [...] Scheduled documented in this encounter Care Teams Crochet Machine Operator Relationship Specialty Start Date End Date Gucci Manrique MD PCP - General Family Medicine 07/06/20 ChikisConcetta MD [address] [facility] [address] DIV MEDICAL ONCOLOGY, [facility] [address] [place] [address] Surgeon Breast Surgery 08/28/23 documented as of this encounter
--- OUTSIDE RECORDS SUMMARY | 2024-08-16 07:45 | XMS_ITS | Encounter Summary ---
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
--- OUTSIDE RECORDS SUMMARY | 2024-08-16 07:45 | XMS_ITS | Encounter Summary ---
Author Organization [facility] Home Care Servic es Address [address] [place] [address] Phone Care Team Providers Care Home Lighting Adviser Name Role Phone Gucci Manrique MD Primary Care Provider + [phone] Reason for Visit * Reason Comments OP Infusion * Medication Authorization (Routine) - Closed Specialty Diagnoses / Procedures Referred By Carolina song Referred To Contact Shreya Platt MD [address] [facility] [address] [place] [address] Phone: tel: fax: Referral ID Status Reason Start Date Expiration Date Visits Re quested Visits Authorized [id number] Closed 05/07/2023 06/05/2024 1 1 Encounter Details Date Type Department Care Team (Latest Contact Info) Description 05/07/2023 9:00 AM CDT Home Care Visit [facility] [address] [address] [address] [place] [address] Dipti Loya RN SN INFUSION TREATMENT ROOM [...] on file Legal Sex Female 12:12 AM JIG OPERATOR Gender Identity Not on file Sexual Orientation Not on file 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 Not on file Not [...] Site 0.9 % sodium chloride ([facility] sodium chloride 0.9%) injection 10 mL, [...] Type -SN Infusion Gail tment Room Discipline -Penitentiary Problems Problem Description Start Date Status Goals Interve ntions Medications Disciplines: Penitentiary Management of medications 11/08/2021 Active 1 goal linked to scheduled/documen mauricio intervention 6 goal interventions scheduled/documen mauricio in this visit Monitor patient's vital signs every home health visit Disciplines: SN, PT, OT, STRANDING MACHINE OPERATOR, COMMUNITY SERVICES MANAGER, Skilled Disciplines Monitor patient's vital signs every visit. 11/08/2021 Active 1 goal linked to scheduled/documen mauricio intervention 1 goal intervention scheduled/documen mauricio in this visit Safety concerns Disciplines: Skilled Disciplines Alteration in safety 11/08/2021 Active 1 goal linked to scheduled/documen mauricio intervention 1 goal intervention scheduled/documen mauricio in this visit Specialty Medication - General Disciplines: Penitentiary SN to provide safe assessment of patient prior to use of general specialty medication 11/08/2021 Active - 2 problem interventions scheduled/documen mauricio in this visit Learning/Teachin g Needs - IV Therapy Disciplines: Penitentiary Teaching and learning needs for IV therapy [...] strategies to prevent infection: frequent/proper hand-washing techniques, [place] precautions, avoid crowds and persons with known [...] Scheduled documented in this encounter Care Teams Home Lighting Adviser Relationship Specialty Start Date End Date Gucci Manrique MD PCP - General Family Medicine 07/06/20 documented as of this encounter
--- OUTSIDE RECORDS SUMMARY | 2024-08-16 07:45 | XMS_ITS | Encounter Summary ---
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
--- OUTSIDE RECORDS SUMMARY | 2024-08-16 07:45 | XMS_ITS | Encounter Summary ---
Author Organization [facility] Home Care Servic es Address [address] [place] [address] Phone Care Team Providers Care Coach Operator Name Role Phone Gucci Manrique MD Primary Care Provider [phone] Reason for Visit * Medication Authorization (Routine) - Closed Specialty Diagnoses / Procedures Referred By Contkarthikeyan t Referred To Contact Shreya Platt MD [address] [address] Phone: tel: fax: Referral ID Status Reason Start Date Expiration Date Visits Re quested Visits Authorized [id number] Closed 06/04/2023 07/03/2024 1 1 Encounter Details Date Type Department Care Team (Latest Contact Info) Description 06/04/2023 9:00 AM CDT Home Care Visit 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 Not on file [...] ongoing Plan for next visit: Assess, PIV, digital media coordinator documented in this encounter Plan of Treatment Not on file documented as of this encounter Visit Diagnoses Not on filedocumented in this encounter Administered Medications Active Administered Medications - up to 3 most recent administrations Medication Order MAR Action Action Date Dose Rate Site 0.9 % sodium chloride ([facility] sodium chloride 0.9%) injection 10 [...] Type -SN Infusion Gail tment Room Discipline -[facility] Problems Problem Description Start Date Status Goals Interve ntions Medications Disciplines: [facility] Management of medications 11/08/2021 Active 1 goal linked to scheduled/documen mauricio intervention 6 goal interventions scheduled/documen mauricio in this visit Monitor patient's vital signs every home health visit Disciplines: SN, PT, OT, TRUCK AND TRANSPORT MECHANIC, GRADUATE TEACHER EDUCATION, Skilled Disciplines Monitor patient's vital signs every [...] strategies to prevent infection: frequent/proper hand-washing techniques, [place] precautions, avoid crowds and persons with known infections, staying current with immunizations, s/s of infection, use of antibiotics and encourage adequate diet and fluid intake. Instruct patient on how to recognize signs and symptoms of infection and when to notify HH nurse and/or physician. Problem:Learning/Teac adi Needs - IV Therapy Completed SN instructed patient in strategies to prevent infection: frequent/proper hand-washing techniques, [place] precautions, avoid crowds and persons with known [...] Scheduled documented in this encounter Care Teams Coach Operator Relationship Specialty Start Date End Date Gucci Manrique MD PCP - General Family Medicine 07/06/20 documented as of this encounter
--- OUTSIDE RECORDS SUMMARY | 2024-08-16 07:45 | XMS_ITS | Encounter Summary ---
Author Organization [facility] Home Care Servic es Address [address] [place] [address] Phone Care Team Providers Care Chief Operations Officer Name Role Phone Gucci Manrique MD Primary Care Provider + [phone] Louann, Concetta Bowden MD Unavailable Reason for Visit * Reason Comments OP Infusion * Medication Authorization (Routine) - Pending Review Specialty Diagnoses / Procedures Referred By Contkarthikeyan t Referred To Contact Shreya Platt MD [address] [address] Phone: tel: fax: Referral ID Status Reason Start Date Expiration Date V isits Requested Visits Authorized [id number] Pending Review 09/06/2023 2024 1 1 Encounter Details Date Type Department Care Team (Latest Contact Info) Description 09/05/2023 9:00 AM RADIOGRAPHER MAMMOGRAPHER Home Care Visit [facility] [address] [address] [address] [place] [address] Dipti Loya RN SN INFUSION TREATMENT ROOM [...] on file Legal Sex Female 12:12 AM RADIOGRAPHER MAMMOGRAPHER Gender Identity Not on file Sexual Orientation Not on file 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 Not on file Not on file documented as of this encounter Last Filed Vital Signs Vital Sign Reading Time Taken Comments Blood Pressure 136/73 09/05/2023 12:00 PM RADIOGRAPHER MAMMOGRAPHER Pulse 73 09/05/2023 12:00 PM RADIOGRAPHER MAMMOGRAPHER Temperature 36.9 ??C (98.5 ??F) 09/05/2023 12:[address] Respiratory Rate 17 09/05/2023 12:00 PM RADIOGRAPHER MAMMOGRAPHER Oxygen Saturation 99% 09/05/2023 12:00 PM RADIOGRAPHER MAMMOGRAPHER Inhaled Oxygen Concentration - - Weight 103 kg (227 lb) 09/05/2023 10:00 AM RADIOGRAPHER MAMMOGRAPHER Height - - Body Mass Index 38.96 07/03/2023 9:15 AM RADIOGRAPHER MAMMOGRAPHER documented in this encounter Miscellaneous Notes * Home Health Plan for Next Visit - Dipti Loya RN - 09/05/2023 10:25 AM CST Reason for today's visit assessment, instruction, Inflectra infusion Discuss plan of care with pt verb good understanding Discharge planning indef Plan for next visit scheduled for 10/09/2023 Inflectra infusion OGRAPHER MAMMOGRAPHER documented in this encounter Plan of Treatment Not on file documented as of this encounter Visit Diagnoses Not on filedocumented in this encounter Administered Medications Active Administered Medications - up to 3 most recent administrations Medication Order MAR Action Action Date Dose Rate Site 0.9 % sodium chloride ([facility] sodium chloride 0.9%) injection 10 mL, intravenous, As needed, line care, Starting on Sun09/05/23 at 1026, Indications: Maintain Patency of Indwelling Vascular CatheterIndications:Maintain Patency of Indwelling Vascular Catheter Given 09/05/2023 10:00 AM RADIOGRAPHER MAMMOGRAPHER 10 mL Inactive Administered Medications - up to 3 most recent administrations Medication Order MAR Action Action Date Dose Rate Site acetaminophen (TYLENOL) 500 mg tablet 1,000 mg, oral, Every 4 weeks, First dose on [place] 09/06/23 at 1300, Please give 1000mg of acetaminophen (Tylenol) 30 minutes prior to Inflectra infusion, Indications: infusion reaction prophylaxisIndications:infusion reaction prophylaxis Given 09/05/2023 9:30 AM RADIOGRAPHER MAMMOGRAPHER 2 tablets inFLIXimab-dyyb 500 mg in sodium chloride 0.9% 0.9% IVPB 500 mg, intravenous, Every 4 weeks, First dose on [place] 09/06/23 at 1300, Infuse 500mg Infliximab in 250mL Normal Saline over 2 hours with 1.2 micron filter every 4 weeks., Indications: Crohn's DiseaseIndications:Crohn's Disease Given 09/05/2023 10:00 AM RADIOGRAPHER MAMMOGRAPHER 500 mg loratadine 10 mg capsule 10 mg, oral, Every 4 weeks, First dose on [place] 09/06/23 at 1300, Please give 10mg of loratadine (Claritin) 30 minutes prior to Inflectra infusion, Indications: infusion reaction prophylaxisIndications:infusion reaction prophylaxis Given 09/05/2023 9:30 AM RADIOGRAPHER MAMMOGRAPHER 10 mg documented in this encounter Home Health Visit - Care Plan Visit Details Visit [facility] Disc[facility] -[facility] Problems Problem Description Start Date Status Goals Interve ntions Medications Disciplines: [facility]pc Management of medications 11/08/2021 Active 1 goal linked to scheduled/documen mauricio intervention 6 goal interventions scheduled/documen mauricio in this visit Monitor patient's vital signs every home health visit Disciplines: SN, PT, OT, EXECUTIVE VICE PRESIDENT BUSINESS DEVELOPMENT, AIR CONDITIONING UNIT TESTER, Skilled Disciplines Monitor patient's vital signs [...] strategies to prevent infection: frequent/proper hand-washing techniques, [place] precautions, avoid crowds and persons with known [...] Scheduled documented in this encounter Care Teams Chief Operations Officer Relationship Specialty Start Date End Date Gucci Manrique MD PCP - General Family Medicine 07/06/20 Concetta Diop MD [address] [facility] DIV MEDICAL ONCOLOGY, [facility] [address] [place] [address] Surgeon Breast Surgery 08/28/23 documented as of this encounter
--- OUTSIDE RECORDS SUMMARY | 2024-08-16 07:45 | XMS_ITS | Encounter Summary ---
Author Organization [facility] Home Care Servic es Address [address] [place] [address] Phone Care Team Providers Care Medical Laboratory Specialist Name Role Phone Gucci Manrique MD Primary Care Provider [phone] Reason for Visit * Reason Comments Crohn's Disease * Medication Authorization (Routine) - Pending Review Specialty Diagnoses / Procedures Referred By Craolina t Referred To Contact Shreya Platt MD [address] [facility] [address] [place] [address] Phone: tel: fax: Referral ID Status Reason Start Date Expiration Date V isits Requested Visits Authorized [id number] Pending Review 08/10/2023 09/08/2024 1 1 Encounter Details Date Type Department Care Team (Latest Contact Info) Description 08/08/2023 9:00 AM BINDING PRINTER Home Care Visit [facility] Health [address] [address] [address] [place] [address] Dipti Loya RN SN INFUSION TREATMENT ROOM [...] on file Legal Sex Female 12:12 AM BINDING PRINTER Gender Identity Not on file Sexual Orientation Not on file 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 Not on file Not on file documented as of this encounter Last Filed Vital Signs Vital Sign Reading Time Taken Comments Blood Pressure 129/60 08/08/2023 12:20 PM BINDING PRINTER Pulse 63 08/08/2023 12:20 PM BINDING PRINTER Temperature 36.1 ??C (97 ??F) 08/08/2023 12:20 PM BINDING PRINTER Respiratory Rate 17 08/08/2023 12:20 PM BINDING PRINTER Oxygen Saturation 100% 08/08/2023 12:20 PM BINDING PRINTER Inhaled Oxygen Concentration - - Weight 102.5 kg (226 lb) 08/08/2023 10:50 AM BINDING PRINTER Height - - Body Mass Index 38.79 07/03/2023 9:15 AM BINDING PRINTER documented in this encounter Miscellaneous Notes * Home Health Plan for Next Visit - Dipti Loya RN - 08/08/2023 10:27 AM CST Reason for today's visit assessment, instruction, inflectra infusion Discuss plan of care with pt verb good understanding Discharge planning indef Plan for next visit scheduled inflectra infusion 09/05/2023 ING PRINTER documented in this encounter Plan of Treatment Not on file documented as of this encounter Visit Diagnoses Not on filedocumented in this encounter Administered Medications Active Administered Medications - up to 3 most recent administrations Medication Order MAR Action Action Date Dose Rate Site 0.9 % sodium chloride ([facility] sodium chloride 0.9%) injection 10 mL, intravenous, As needed, line care, Starting on Sun08/08/23 at 1024, Indications: Maintain Patency of Indwelling Vascular CatheterIndications:Maintain Patency of Indwelling Vascular Catheter Given 08/08/2023 10:20 AM BINDING PRINTER 10 mL Inactive Administered Medications - up to 3 most recent administrations Medication Order MAR Action Action Date Dose Rate Site acetaminophen (TYLENOL) 500 mg tablet 1,000 mg, oral, Every 4 weeks, First dose on Sun08/10/23 at 0900, Please give 1000mg of acetaminophen (Tylenol) 30 minutes prior to Inflectra infusion, Indications: infusion reaction prophylaxisIndications:infusion reaction prophylaxis Given 08/08/2023 9:50 AM BINDING PRINTER 2 tablets inFLIXimab-dyyb 500 mg in sodium chloride 0.9% 0.9% IVPB 500 mg, intravenous, Every 4 weeks, First dose on Sun08/10/23 at 0900, Infuse 500mg Infliximab in 250mL Normal Saline over 2 hours with 1.2 micron filter every 4 weeks., Indications: Crohn's DiseaseIndications:Crohn's Disease Given 08/08/2023 10:20 AM BINDING PRINTER 500 mg loratadine 10 mg capsule 10 mg, oral, Every 4 weeks, First dose on Sun08/10/23 at 0900, Please give 10mg of loratadine (Claritin) 30 minutes prior to Inflectra infusion, Indications: infusion reaction prophylaxisIndications:infusion reaction prophylaxis Given 08/08/2023 9:50 AM BINDING PRINTER 10 mg documented in this encounter Home [...] home health visit Disciplines: SN, PT, OT, STARCH COOKER, PRIMARY PRODUCTS INSPECTORS, Skilled Disciplines Monitor patient's vital signs every [...] strategies to prevent infection: frequent/proper hand-washing techniques, [place] precautions, avoid crowds and persons with known [...] Scheduled documented in this encounter Care Teams Medical Laboratory Specialist Relationship Specialty Start Date End Date Gucci Manrique MD PCP - General Family Medicine 07/06/20 documented as of this encounter
--- OUTSIDE RECORDS SUMMARY | 2024-08-16 07:45 | XMS_ITS | Encounter Summary ---
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 Current weight as of 06/04/23: 106.6kg. Premedicate [...] (13 doses) through 06/30/24. Please provide 1 alf visit every 4 weeks for 52 weeks for patient assessment, teaching,line access or PIV insertion, drug administration, and lab work with 6 PRN visits for additional drug administrations during induction therapy or for recertifications that fall out of range. GN ENGINEERING MANAGER * Daniel Celaya [facility] - 10/09/2023 11:05 AM CST FOC: Shreya Platt MD/ Daniel Celaya PharmD Following Pharmacist: Daniel Celaya PharmD custodial to initiate and maintain IV access via [...] end date of 10/23/23. Please provide 1 alf visit every week over 3 weeks for patient assessment, teaching, line access or PIV insertion, drug administration, and lab work with 6 PRN visits for additional drug administrations during induction therapy or for recertifications that fall out of range. GN ENGINEERING MANAGER documented in this encounter Plan of [...] 09/06/2023 added in this encounter Care Teams Demurrage Worker Relationship Specialty Start Date End Date Gucci Manrique MD PCP - General Family Medicine 07/06/20 Concetta Diop MD [address] [facility] [address] [address] DIV IM MEDICAL ONCOLOGY, [place] [address] [place] [address] Surgeon Breast Surgery 08/28/23 documented as of this encounter
--- OUTSIDE RECORDS SUMMARY | 2024-08-16 07:45 | XMS_ITS | Encounter Summary ---
Author Organization [facility] Healthcare Address [address] [place] [address] Care Team Providers Care Curriculum Coordinator Name Role Phone Gucci Manrique MD Primary Care Provider + [phone] [place]Concetta schwab MD Unavailable [phone] Encounter Details Date Type Department Care Team (Late st Contact Info) Description 10/23/2023 Orders Only [facility] [address] [place] [address] Daniel Celaya, [facility] Social History Tobacco Use Types [...] on file Legal Sex Female 12:12 AM GAMEMASTER Gender Identity Not on file Sexual Orientation Not on file 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 [address] DIV IM MEDICAL ONCOLOGY, [facility] [address] [place] [address] Surgeon Breast Surgery 08/28/23 documented as of this encounter
--- OUTSIDE RECORDS SUMMARY | 2024-08-16 07:45 | XMS_ITS | Encounter Summary ---
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 Shikha Platt. 445pm Return call [...] Visit Type -SN Triage Encoun ter Discipline -Usp Problems Problem Description Start Date Status Goals Interve ntions Medications Disciplines: Usp Management of medications 11/08/2021 Active 1 goal linked to scheduled/documen mauricio intervention 6 goal interventions scheduled/documen mauricio in this visit Monitor patient's vital signs every home health visit Disciplines: SN, PT, OT, SHOTGUN SHELL REPRINTING UNIT OPERATOR, VICE PRESIDENT EDUCATION, Skilled Disciplines Monitor patient's vital signs [...] strategies to prevent infection: frequent/proper hand-washing techniques, [place] precautions, avoid crowds and persons with known [...] Scheduled documented in this encounter Care Teams Director Diabetes Relationship Specialty Start Date End Date Gucci Manrique MD PCP - General Family Medicine 07/06/20 documented as of this encounter
--- OUTSIDE RECORDS SUMMARY | 2024-08-16 07:45 | XMS_ITS | Encounter Summary ---
Author Organization [facility] Home Care Servic es Address [address] [place] [address] Phone Care Team Providers Care Docking Pilot Name Role Phone Gucci Manrique MD Primary Care Provider [phone] [place], Concetta Bowden MD Unavailable [phone] Reason for Visit * Reason Comments Crohn's Disease * Medication Authorization (Routine) - Pending Review Specialty Diagnoses / Procedures Referred By Carolina t Referred To Contact Shreya Platt MD [address] [facility] [address] [place] [address] Phone: tel: fax: Referral ID Status Reason Start Date Expiration Date V isits Requested Visits Authorized [id number] Pending Review 10/24/2023 11/22/2024 1 1 Encounter Details Date Type Department Care Team (Latest Contact Info) Description 10/23/2023 9:00 AM ASTRONAUTICAL ENGINEER Home Care Visit [facility] [address] [address] [address] [place] [address] Dipti Loya RN SN INFUSION TREATMENT ROOM [...] on file Legal Sex Female 12:12 AM ASTRONAUTICAL ENGINEER Gender Identity Not on file Sexual Orientation Not on file 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 Not on file Not on file documented as of this encounter Last Filed Vital Signs Vital Sign Reading Time Taken Comments Blood Pressure 98/72 10/23/2023 11:20 AM ASTRONAUTICAL ENGINEER Pulse 72 10/23/2023 11:20 AM ASTRONAUTICAL ENGINEER Temperature 36.2 ??C (97.1 ??F) 10/23/2023 11:[address] Respiratory Rate 17 10/23/2023 11:20 AM ASTRONAUTICAL ENGINEER Oxygen Saturation 99% 10/23/2023 11:20 AM ASTRONAUTICAL ENGINEER Inhaled Oxygen Concentration - - Weight - [...] Plan for next visit Inflectra infusion 11/06/2023 ONAUTICAL ENGINEER documented in this encounter Plan of Treatment Not on file documented as of this encounter Visit Diagnoses Not on filedocumented in this encounter Administered Medications Active Administered Medications - up to 3 most recent administrations Medication Order MAR Action Action Date Dose Rate Site 0.9 % sodium chloride ([facility] sodium chloride 0.9%) injection 10 mL, intravenous, As needed, line care, Starting on Sun10/23/23 at 1018, Indications: Maintain Patency of Indwelling Vascular CatheterIndications:Maintain Patency of Indwelling Vascular Catheter Given 10/23/2023 9:40 AM ASTRONAUTICAL ENGINEER 10 mL iron sucrose complex (VENOFER IV) 300 mg, intravenous, Every 7 days, First dose on Sun10/24/23 at 1700, Infuse 300 mg of Iron Sucrose in 250 ml Normal Saline over 90 minutes at 167 mL/hr. Given 10/23/2023 9:40 AM ASTRONAUTICAL ENGINEER 300 mg documented in this encounter Home [...] home health visit Disciplines: SN, PT, OT, COLOR RECEIVER, OFFSET MACHINE OPERATOR, Skilled Disciplines Monitor patient's vital [...] strategies to prevent infection: frequent/proper hand-washing techniques, [place] precautions, avoid crowds and persons with known [...] Scheduled documented in this encounter Care Teams Docking Pilot Relationship Specialty Start Date End Date Gucci Manrique MD PCP - General Family Medicine 07/06/20 ChikisConcetta MD [address] [facility] [address] DIV MEDICAL ONCOLOGY, [facility] [address] [place] [address] Surgeon Breast Surgery 08/28/23 documented as of this encounter
--- OUTSIDE RECORDS SUMMARY | 2024-08-16 07:45 | XMS_ITS | Encounter Summary ---
Author Organization [facility] Home Care Servic es Address [address] [place] [address] Phone Care Team Providers Care Customer Specialist Name Role Phone Gucci Manrique MD Primary Care Provider [phone] Reason for Visit * Reason Comments Crohn's Disease * Medication Authorization (Routine) - Closed Specialty Diagnoses / Procedures Referred By Carolina t Referred To Contact Shreya Platt MD [address] 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 Instruct patient on how to recognize signs and symptoms of infection and when to notify HH nurse and/or physician. Problem:Learning/Teac adi Needs - IV Therapy Completed Patient instructed on frequent/proper hand-washing techniques, [place] precautions, avoid crowds and persons with known [...] site. documented in this encounter Care Teams Customer Specialist Relationship Specialty Start Date End Date Gucci Manrique MD PCP - General Family Medicine 07/06/20 documented as of this encounter
--- OUTSIDE RECORDS SUMMARY | 2024-08-16 07:45 | XMS_ITS | Encounter Summary ---
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 Indications: acetaminophen (TYLENOL) 500 mg [...] MD LAB BLOOD ORDERABLES Esther humphrey Result [facility] [place] [address] * (ABNORMAL) Differential, auto (06/04/2023 9:30 AM CDT) Neutrophil abs 1.5(L) 1.7 - 6.5 K/cumm [facility] Imm gran abs 0.0 0.0 - 0.1 K/cumm [facility] Lymphocyte abs 2.8 0.8 - 3.3 K/cumm [facility] Monocyte abs 0.3 0.2 - 0.8 K/cumm [facility] Eosinophil abs 0.1 0.0 - 0.5 K/cumm [facility] Basophil abs 0.0 0.0 - 0.1 K/cumm [facility] Neutrophil pct 32.3 % [facility] Comment: Interpretive Data Percent cell count reference ranges are not reported, since discordance with absolute values may lead to misinterpretation of CBC data. Current Interpretive Data was last revised on 2017. Imm gran pct 0.2 % [facility] Comment: Interpretive Data Percent cell count reference ranges are not reported, since discordance with absolute values may lead to misinterpretation of CBC data. Current Interpretive Data was last revised on 2017. Lymphocyte pct 58.9 % [facility] Comment: Interpretive Data Percent cell count reference ranges are not reported, since discordance with absolute values may lead to misinterpretation of CBC data. Current Interpretive Data was last revised on 2017. Monocyte pct 6.1 % [facility] Comment: Interpretive Data Percent cell count reference ranges are not reported, since discordance with absolute values may lead to misinterpretation of CBC data. Current Interpretive Data was last revised on 2017. Eosinophil pct 1.9 % [facility] Comment: Interpretive Data Percent cell count reference ranges are not reported, since discordance with absolute values may lead to misinterpretation of CBC data. Current Interpretive Data was last revised on 2017. Basophil pct 0.6 % [facility] Comment: Interpretive Data Percent cell count reference ranges are not reported, since discordance with absolute values may lead to misinterpretation of CBC data. Current Interpretive Data was last revised on 2017. Blood 06/04/2023 9:30 AM CDT 06/04/2023 11:53 AM CDT Shreya Platt MD LAB BLOOD ORDERABLES Esther l Result Performing Organization Address City/[facility]/ZIP Co de Phone Number [facility] Department [place] [address] * CRP (acute phase) (06/04/2023 9:30 AM CDT) Pathologist [facility] CRP 4.5 <=10.0 mg/L [facility] Blood 06/04/2023 9:30 AM CDT 06/04/2023 11:53 AM CDT Shreya Platt MD LAB BLOOD ORDERABLES Esther l Result Performing Organization Address [facility] de Phone Number [facility] [place] [address] * (ABNORMAL) CBC with auto differential (06/04/2023 9:30 AM CDT) Pathologist [facility] WBC 4.7 3.8 - 9.9 K/cumm [facility] Hgb 10.7(L) 11.9 - 15.5 g/dL [facility] Hct 34.6(L) 35.6 - 45.5 % [facility] Plt 253 150 - 400 K/cumm [facility] MPV 11.3 9.1 - 12.3 fL [facility] RBC 4.34 3.90 - 5.20 M/cumm [facility] Comment: Interpretive Data A reference range for this assay has not been established for patients with an unknown legal sex. Please refer to the laboratory test catalog for established sex-specific reference intervals. Current interpretive data was last revised on 2023. MCV 79.7(L) 81.3 - 96.4 fL [facility] MCH 24.7(L) 27.1 - 33.3 pg [facility] MCHC 30.9(L) 32.3 - 35.7 g/dL [facility] RDW CV 14.4 11.1 - 14.9 % [facility] RDW SD 41.5 35.7 - 48.1 fL [facility] NRBC abs 0.00 0.00 - 0.01 K/cumm [facility] Blood 06/04/2023 9:30 AM CDT 06/04/2023 11:53 AM CDT us Shreya Platt MD LAB BLOOD ORDERABLES Esther l Result Performing Organization Address [facility]/ZIP Co de Phone Number [facility] [place] [address] * Glucose, random (Outreach) (06/04/2023 9:30 AM CDT) [facility] Signature Glucose 93 70 - 199 mg/dL [facility] Comment: Interpretive Data Fasting glucose >/= [...] ORDERABLES Esther l Result Performing Organization Address [facility] Co de Phone Number [facility] [place] [address] * Comprehensive metabolic panel, without glucose (Outreach) (06/04/2023 9:30 AM CDT) Sodium 142 135 - 145 mmol/L [facility] Potassium, pl 4.0 3.3 - 4.9 mmol/L [facility] Chloride 107 97 - 110 mmol/L [facility] CO2 28 22 - 32 mmol/L [facility] Anion gap 7 2 - 15 mmol/L [facility] BUN 12 6 - 25 mg/dL [facility] Creatinine 0.73 0.60 - 1.10 mg/dL [facility] Calcium 9.1 8.5 - 10.3 mg/dL [facility] Protein, pl 7.5 6.5 - 8.5 g/dL [facility] Albumin 4.2 3.5 - 5.0 g/dL [facility] Bilirubin, total 0.4 0.1 - 1.2 mg/dL [facility] Alk phos 69 40 - 130 Units/L [facility] AST 20 10 - 45 Units/L [facility] ALT 22 7 - 45 Units/L [facility] Blood 06/04/2023 9:30 AM CDT 06/04/2023 11:53 AM CDT us Shreya Platt MD LAB BLOOD ORDERABLES Esther humphrey Result [facility] [place] [address] documented in this encounter Visit Diagnoses Not on filedocumented in this encounter Care Teams Adjustment Examiner Relationship Specialty Start Date End Date Gucci Manrique MD PCP - General Family Medicine 07/06/20 documented as of this encounter
--- OUTSIDE RECORDS SUMMARY | 2024-08-16 07:45 | XMS_ITS | Encounter Summary ---
Author Organization [facility] Home Care Servic es Address [address] [place] [address] Phone Care Team Providers Care Circuit Walker Name Role Phone Gucci Manrique MD Primary Care Provider [phone] Reason for Visit * Medication Authorization (Routine) - Closed Specialty Diagnoses / Procedures Referred By Contkarthikeyan t Referred To Contact Shreya Platt MD [address] [address] Phone: tel: fax: Referral ID Status Reason Start Date Expiration Date Visits Re quested Visits Authorized [id number] Closed 04/06/2023 05/05/2024 1 1 Encounter Details Date Type Department Care Team (Latest Contact Info) Description 04/06/2023 9:00 AM CDT Home Care Visit [facility] [address] [place] [address] Jhon Jurado RN SN INFUSION TREATMENT ROOM [...] on file Legal Sex Female 12:12 AM 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 Reports occasional diarrhea and BRBPR. Her cableway operator, Dr. Platt, is aware of these symptoms [...] % sodium chloride ([facility] sodium chloride [...] ntions Medications Disciplines: Mcc Management of medications 11/08/2021 Active 1 goal linked to scheduled/documen mauricio intervention 6 goal interventions scheduled/documen mauricio in this visit Monitor patient's vital signs every home health visit Disciplines: SN, PT, OT, REPAIRER FINISHED METAL, REVISING CLERK, Skilled Disciplines Monitor patient's vital signs every visit. 11/08/2021 Active 1 goal linked to scheduled/documen mauricio intervention 1 goal intervention scheduled/documen mauricio in this visit Safety concerns Disciplines: Skilled Disciplines Alteration in safety 11/08/2021 Active 1 goal linked to scheduled/documen mauricio intervention 1 goal intervention scheduled/documen mauricio in this visit Specialty Medication - General Disciplines: Mcc SN to provide safe assessment of patient prior to use of general specialty medication 11/08/2021 Active - 2 problem interventions scheduled/documen mauricio in this visit Learning/Mira g Needs - IV Therapy Disciplines: Mcc [...] strategies to prevent infection: frequent/proper hand-washing techniques, [place] precautions, avoid crowds and persons with known [...] Scheduled documented in this encounter Care Teams Circuit Walker Relationship Specialty Start Date End Date Gucci Manrique MD PCP - General Family Medicine 07/06/20 documented as of this encounter
--- OUTSIDE RECORDS SUMMARY | 2024-08-16 07:45 | XMS_ITS | Encounter Summary ---
Author Organization [facility] Address [address] [place] [address] Phone Care Team Providers Care Machine Ii Engraver Name Role Phone Gucci Manrique MD Primary Care Provider [phone] Concetta Diop MD Unavailable [phone] Reason for Visit * Reason Comments Consult * Consultation (Routine) - Authorized Specialty Diagnoses / Procedures Referred By Contac t Referred To Contact Oncology Diagnoses Family history of breast cancer Issa Mccall MD [address] [place] [address] Phone: tel: fax: [facility] On[facility] [address] [facility] 7th [place] [address] [place] [address] Phone: tel: fax: Referral ID Status Reason Start Date Expiration Date Visits Requested Visits Authorized [id number] Authorized Specialty Services Required 3 08/26/2024 99 99 Encounter Details Date Type Department Care Team (Latest Contact Info) Description 10/10/2023 12:20 PM VARNISH COOKER Office Visit [facility] Oncology [address] [place] [address] Concetta Diop MD [address] [place] [address] Family history of breast cancer [...] on file Legal Sex Female 12:12 AM VARNISH COOKER Gender Identity Not on file Sexual Orientation Not on file 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 Not on file Not on file documented as of this encounter Last Filed Vital Signs Vital Sign Reading Time Taken Comments Blood Pressure 113/72 10/10/2023 12:29 PM VARNISH COOKER Pulse 62 10/10/2023 12:29 PM VARNISH COOKER Temperature 36.6 ??C (97.8 ??F) 10/10/2023 12:[address] Respiratory Rate 18 10/10/2023 12:29 PM VARNISH COOKER Oxygen Saturation 100% 10/10/2023 12:29 PM VARNISH COOKER Inhaled Oxygen Concentration - - Weight 99.6 kg (219 lb 9.6 oz) 10/10/2023 12:29 PM VARNISH COOKER Height 162.6 cm (5' 4 ) 10/10/2023 12:29 PM VARNISH COOKER Body Mass Index 37.69 10/10/2023 12:29 PM VARNISH COOKER documented in this encounter Progress Notes * [...] ORAL), 4 each, oral, Daily - [address] [facility] sodium chloride 0.9%, 10 mL, intravenous, PRN [...] cancer. Alive, age 47 . Lives in [place]. Father: no cancer. Alive. He has 2 [...] get testing, either with me or the [facility] genetic counselors. If she is [...] services. Concetta Diop MD, FACS Medical Oncology [facility] ISH COOKER documented in this encounter Plan of [...] testing documented in this encounter Care Teams Machine Ii Engraver Relationship Specialty Start Date End Date Gucci Manrique MD PCP - General Family Medicine 07/06/20 Concetta Diop MD [address] [facility] DIV MEDICAL ONCOLOGY, [facility] [address] [place] [address] Surgeon Breast Surgery 08/28/23 documented as of this encounter
--- OUTSIDE RECORDS SUMMARY | 2024-08-16 07:45 | XMS_ITS | Encounter Summary ---
Author Organization 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 Current weight as of 06/04/23: 106.6kg. Premedicate [...] this time LOT: (13 doses) through 06/30/23. ESTATE COORDINATOR documented in this encounter Plan of [...] documented as of this encounter Care Teams Assurance Manager Relationship Specialty Start Date End Date Gucci Manrique MD PCP - General Family Medicine 07/06/20 documented as of this encounter
--- OUTSIDE RECORDS SUMMARY | 2024-08-16 07:45 | XMS_ITS | Encounter Summary ---
Author Organization [facility] Home Care Servic es Address [address] [place] [address] Phone Care Team Providers Care Welder Pipe Making Name Role Phone Gucci Manrique MD Primary Care Provider [phone] Reason for Visit * Reason Comments Crohn's Disease * Medication Authorization (Routine) - Closed Specialty Diagnoses / Procedures Referred By Carolina song Referred To Contact Shreya Platt MD [address] [facility] [address] [place] [address] Phone: tel: fax: Referral ID Status Reason Start Date Expiration Date Visits Re quested Visits Authorized [id number] Closed 03/09/2023 04/07/2024 1 1 Encounter Details Date Type Department Care Team (Latest Contact Info) Description 03/09/2023 9:00 AM CDT Home Care Visit [facility] [address] [address] [address] [place] [address] Bipin Leiva RN SN INFUSION TREATMENT ROOM [...] on file Legal Sex Female 12:12 AM PSYCHOLOGIST PRIVATE PRACTICE Gender Identity Not on file Sexual Orientation Not on file 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 Instruct patient on how to recognize signs and symptoms of infection and when to notify HH nurse and/or physician. Problem:Learning/Teac adi Needs - IV Therapy Completed Patient instructed on frequent/proper hand-washing techniques, [place] precautions, avoid crowds and persons with known [...] site. documented in this encounter Care Teams Welder Pipe Making Relationship Specialty Start Date End Date Gucci Manrique MD PCP - General Family Medicine 07/06/20 documented as of this encounter
--- OUTSIDE RECORDS SUMMARY | 2024-08-16 07:45 | XMS_ITS | Encounter Summary ---
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 Indications: acetaminophen (TYLENOL) 500 mg [...] 05/07/2023 3:27 PM CDT us Wendie Platt REPEATER CHIEF LAB BLOOD ORDERABLES Final Re sult [facility] One [facility] Department [place] [address] * (ABNORMAL) Differential, auto (05/07/2023 12:30 PM CDT) Neutrophil abs 0.3(C) 1.7 - 6.5 K/cumm [facility] Comment:Critical result call ed to and read back by FABRICE GRUBBS RN on 05 07 2023 at 1611 to Gustavo Mraroquin. Imm gran abs 0.0 0.0 - 0.1 K/cumm [facility] Lymphocyte abs 1.2 0.8 - 3.3 K/cumm [facility] Monocyte abs 0.2 0.2 - 0.8 K/cumm [facility] Eosinophil abs 0.0 0.0 - 0.5 K/cumm [facility] Basophil abs 0.0 0.0 - 0.1 K/cumm [facility] Neutrophil pct 16.2 % [facility] Comment: Interpretive Data Percent cell count reference ranges are not reported, since discordance with absolute values may lead to misinterpretation of CBC data. Current Interpretive Data was last revised on 2017. Imm gran pct 0.0 % [facility] Comment: Interpretive Data Percent cell count reference ranges are not reported, since discordance with absolute values may lead to misinterpretation of CBC data. Current Interpretive Data was last revised on 2017. Lymphocyte pct 69.9 % [facility] Comment: Interpretive Data Percent cell count reference ranges are not reported, since discordance with absolute values may lead to misinterpretation of CBC data. Current Interpretive Data was last revised on 2017. Monocyte pct 12.7 % [facility] Comment: Interpretive Data Percent cell count reference ranges are not reported, since discordance with absolute values may lead to misinterpretation of CBC data. Current Interpretive Data was last revised on 2017. Eosinophil pct 0.6 % [facility] Comment: Interpretive Data Percent cell count reference ranges are not reported, since discordance with absolute values may lead to misinterpretation of CBC data. Current Interpretive Data was last revised on 2017. Basophil pct 0.6 % [facility] Comment: Interpretive Data Percent cell count reference ranges are not reported, since discordance with absolute values may lead to misinterpretation of CBC data. Current Interpretive Data was last revised on 2017. Blood 05/07/2023 12:3 0 PM CDT 05/07/2023 3:16 PM CDT Wendie Platt REPEATER CHIEF LAB BLOOD ORDERABLES Final Re sult Performing Organization Address City/[facility]/ZIP Co de Phone Number [facility] Department [place] [address] * CRP (acute phase) (05/07/2023 12:30 PM CDT) Pathologist [facility] CRP 0.9 <=10.0 mg/L [facility] Blood 05/07/2023 12:3 0 PM CDT 05/07/2023 3:16 PM CDT Wendie Platt REPEATER CHIEF LAB BLOOD ORDERABLES Final Re sult Performing Organization Address City/[facility] Co de Phone Number [facility] Department [place] [address] * (ABNORMAL) CBC with auto differential (05/07/2023 12:30 PM CDT) Pathologist [facility] WBC 1.7(L) 3.8 - 9.9 K/cumm [facility] Hgb 10.8(L) 11.9 - 15.5 g/dL [facility] Hct 33.9(L) 35.6 - 45.5 % [facility] Plt 226 150 - 400 K/cumm [facility] MPV 10.9 9.1 - 12.3 fL [facility] RBC 4.17 3.90 - 5.20 M/cumm [facility] MCV 81.3 81.3 - 96.4 fL [facility] MCH 25.9(L) 27.1 - 33.3 pg [facility] MCHC 31.9(L) 32.3 - 35.7 g/dL [facility] RDW CV 13.7 11.1 - 14.9 % [facility] RDW SD 40.7 35.7 - 48.1 fL [facility] NRBC abs 0.00 0.00 - 0.01 K/cumm [facility] Blood 05/07/2023 12:3 0 PM CDT 05/07/2023 3:16 PM CDT Wendie Platt NP LAB BLOOD ORDERABLES Edited R esult - Final Performing Organization Address City/[facility] Co de Phone Number [facility] [place] [address] * Glucose, random (Outreach) (05/07/2023 12:30 PM CDT) Glucose 94 70 - 199 mg/dL [facility] Comment: Interpretive Data Fasting glucose >/= [...] Organization Address [facility]/ZIP Co de Phone Number [facility] Department [place] [address] * Comprehensive metabolic panel, without glucose (Outreach) (05/07/2023 12:30 PM CDT) Sodium 141 135 - 145 mmol/L [facility] Potassium, pl 4.0 3.3 - 4.9 mmol/L [facility] Comment:Hemolyzed; Potassium value may be falsely elevated by as much as 0.3-0.5 mmol/L. Suggest redraw and reanalysis. Chloride 106 97 - 110 mmol/L [facility] CO2 27 22 - 32 mmol/L [facility] Anion gap 8 2 - 15 mmol/L [facility] BUN 9 6 - 25 mg/dL [facility] Creatinine 0.68 0.60 - 1.10 mg/dL [facility] Calcium 8.6 8.5 - 10.3 mg/dL [facility] Protein, pl 7.1 6.5 - 8.5 g/dL [facility] Albumin 4.0 3.5 - 5.0 g/dL [facility] Bilirubin, total <0.2 0.1 - 1.2 mg/dL [facility] Alk phos 59 40 - 130 Units/L [facility] AST 30 10 - 45 Units/L [facility] Comment:Hemolyzed; result ma y be falsely elevated ALT 34 7 - 45 Units/L [facility] Blood 05/07/2023 12:3 0 PM CDT 05/07/2023 3:16 PM CDT us Wendie Platt REPEATER CHIEF LAB BLOOD ORDERABLES Final Re sult [facility] Department [place] [address] documented in this encounter Visit Diagnoses Not on filedocumented in this encounter Care Teams Farmworker Livestock Relationship Specialty Start Date End Date Gucci Manrique MD PCP - General Family Medicine 07/06/20 documented as of this encounter
--- OUTSIDE RECORDS SUMMARY | 2024-08-16 07:46 | XMS_ITS | Encounter Summary ---
Author Organization [facility] Home Care Serv[facility] es Address [address] [place] [address] Phone Care Team Providers Care Critical Systems Technician Name Role Phone Gucci Manrique MD Primary Care Provider [phone] Encounter Details Date Type Department Care Team (Late st Contact Info) Description 11/08/2021 Plan of Care Documentation [facility] Health [address] [address] [address] [place] [address] Social History Tobacco Use Types Packs/Day Years Used Date Smoking Tobacco: Never Smokeless Tobacco: Never Alcohol Use Standard Drinks/Week Comments Yes 0 (1 standard drink = 0.6 oz pur e alcohol) Comments Unknown Sex and Gender Information Value Date Recorded Sex Assigned at Not on file Legal Sex Female 12:12 AM MANAGER STONE Gender Identity Not on file Sexual Orientation Not on file 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
--- OUTSIDE RECORDS SUMMARY | 2024-08-16 07:46 | XMS_ITS | Encounter Summary ---
Author Organization [facility] Address [address] [place] [address] Phone Care Team Providers Care Staffing Coordinator Name Role Phone Gucci Manrique MD Primary Care Provider + [phone] Reason for Referral * Diagnostic Imaging (Routine) - Closed Specialty Diagnoses / Procedures Referred By Carolina song Referred To Contact Diagnoses Low back pain, unspecified back pain laterality, unspecified chronicity, unspecified whether sciatica present Procedures XR Spine Lumbar Ap Lat Flex Ext min 4 Views Amie Quiroga CNS Phone: tel: fax: [address] [phone] Referral ID Status Reason Start Date Expiration Date Visits Re quested Visits Authorized [id number] Closed 07/08/2020 08/07/2021 1 1 GE OVER Encounter Details Date Type Department Care Team (Latest Contact Info) Description 07/09/2020 9:45 AM CHANGE OVER Office Visit [facility] [address] [facility] [address] [place] [phone] Amie Quiroga CNS [address] [facility] [address] [place] [address] Low back pain, unspecified back [...] on file Legal Sex Female 12:12 AM CHANGE OVER Gender Identity Not on file Sexual Orientation Not on file 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 Not on file Not on file documented as of this encounter Last Filed Vital Signs Vital Sign Reading Time Taken Comments Blood Pressure - - Pulse - - Temperature - - Respiratory Rate - - Oxygen Saturation - - Inhaled Oxygen Concentration - - Weight 106.6 kg (235 lb) 07/09/2020 10:45 AM CHANGE OVER Height 162.6 cm (5' 4 ) 07/09/2020 10:45 AM CHANGE OVER Body Mass Index 40.34 07/09/2020 10:45 AM CHANGE OVER documented in this encounter Ordered Prescriptions Prescription Sig Dispense Quantity Refills Last Filled Start Date End Date diclofenac DR (VOLTAREN) 50 mg EC tablet [The details of the medication are not available because there are pending changes by a home health clinician.] 60 tablet 07/09/2020 2 documented in this encounter Progress Notes * Amie Quiroga, SILVER MINER BLASTING - 07/09/2020 9:45 AM CST NEW PATIENT [...] in bowel bladder function. She has had care assistant. She takes occasional tramadol and Aleve. PAST MEDICAL HISTORY She has a past medical history of Migraines. PAST SURGICAL HISTORY She has a past surgical history that includes [place] tooth extraction. INITIAL REVIEW OF MEDICATIONS She has a current medication list which includes the following prescription(s): diclofenac dr and tramadol. DRUG ALLERGIES She has No Known Allergies. SOCIAL HISTORY She reports that she has never smoked. She has never used smokeless tobacco. She reports current alcohol use. She reports that she does not use drugs. 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 Collaborative practice with Dr. Kike Pemberton ?? Amie Quiroga RN, MSN, SUPERINTENDENT COMMISSARY dictating using Fluency Direct Software. Hyperion Administrator variances may occur. GE OVER documented in this encounter Plan of Treatment Not on file documented as of this encounter Results * XR Spine Lumbar Ap Lat Flex Ext min 4 Views (07/09/2020 9:37 AM CHANGE OVER) Anatomical Region Laterality Modality L-spine N/A Computed Radiogr aphy 07/09/2020 10:0 0 AM CHANGE OVER Impressions 07/09/2020 10:23 AM CHANGE OVER There is partial lumbarization of S1 with mild degenerative disc disease at L5-S1. Dictated by: Rodolfo Winkler MD, PHD The radiology attending physician has personally reviewed this study, and had reviewed and/or edited this written report and agrees with it. Electronically signed by: Ramiro Bronson MD, PHD Narrative 07/09/2020 10:23 AM CHANGE OVER EXAMINATION: XR SPINE LUMBAR AP LAT FLEX [...] by: Ramiro Bronson MD, PHD Amie Quiroga SILVER MINER BLASTING IMG XR PROCEDURES Final Res ult documented [...] 01/11/2023 added in this encounter Care Teams Staffing Coordinator Relationship Specialty Start Date End Date Gucci Manrique MD PCP - General Family Medicine 07/06/20 documented as of this encounter
--- OUTSIDE RECORDS SUMMARY | 2024-08-16 07:46 | XMS_ITS | Encounter Summary ---
Author Organization [facility] Address [address] [place] [address] Phone Care Team Providers Care Metal Sprayer Production Name Role Phone Gucci Manrique MD Primary Care Provider Encounter Details Date Type Department Care Team (Late st Contact Info) Description 11/08/2021 Home Care Visit [facility] Health [address] [address] [address] [place] [address] Bipin Leiva, AMADOU SBAR-START OF CARE/RESUMPTION Social History Tobacco Use Types Packs/Day Years Used Date Smoking Tobacco: Never Smokeless Tobacco: Never Alcohol Use Standard Drinks/Week Comments Yes 0 (1 standard drink = 0.6 oz pur e alcohol) Comments Unknown Sex and Gender Information Value Date Recorded Sex Assigned at Not on file Legal Sex Female 12:12 AM ARCHITECTURAL DESIGN LECTURER Gender Identity Not on file Sexual Orientation Not on file 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
--- OUTSIDE RECORDS SUMMARY | 2024-08-16 07:46 | XMS_ITS | Encounter Summary ---
Author Organization [facility] Address [address] [place] [address] Phone Care Team Providers Care Clinical Quality Analyst Name Role Phone Gucci Manrique MD Primary Care Provider + [phone] Reason for Visit * Reason Comments Crohn's Disease * Medication Authorization (Routine) - Closed Specialty Diagnoses / Procedures Referred By Carolina song Referred To Contact Shreya Platt MD [address] [facility] [address] [place] [address] Phone: tel: fax: Referral ID Status Reason Start Date Expiration Date Visits Re quested Visits Authorized [id number] Closed 11/08/2021 12/08/2022 1 1 Encounter Details Date Type Department Care Team (Latest Contact Info) Description 11/08/2021 1:00 PM CDT Home Care Visit [facility] Health [address] [address] [address] [place] [address] Bipin Leiva RN SN NON OASIS START OF CARE Social History Tobacco Use Types Packs/Day Years Used Date Smoking Tobacco: Never Smokeless Tobacco: Never Alcohol Use Standard Drinks/Week Comments Yes 0 (1 standard drink = 0.6 oz pur e alcohol) Comments Unknown Sex and Gender Information Value Date Recorded Sex Assigned at Not on file Legal Sex Female 12:12 AM NUT AND BOLT ASSEMBLER Gender Identity Not on file Sexual Orientation Not on file 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 sodium chloride 0.9%) injection 10 mL, [...] -SN Non-OASIS Sta rt of Care Discipline -Fpc Problems Problem Description Start Date Status Goals Interve ntions Medications Disciplines: Fpc Management of medications 11/08/2021 Active 1 goal linked to scheduled/documen mauricio intervention 6 goal interventions scheduled/documen mauricio in this visit Monitor patient's vital signs every home health visit Disciplines: SN, PT, OT, ASSEMBLER DC FIELD YOKE, RETIREMENT CONSULTANT, Skilled Disciplines Monitor patient's vital signs every [...] strategies to prevent infection: frequent/proper hand-washing techniques, [place] precautions, avoid crowds and persons with known infections, staying current with immunizations, s/s of infection, use of antibiotics and encourage adequate diet and fluid intake. Instruct patient on how to recognize signs and symptoms of infection and when to notify HH nurse and/or physician. Problem:Learning/Teac adi Needs - IV Therapy Completed Patient instructed on frequent/proper hand-washing techniques, [place] precautions, avoid crowds and persons with known [...] understanding. documented in this encounter Care Teams Clinical Quality Analyst Relationship Specialty Start Date End Date Gucci Manrique MD PCP - General Family Medicine 07/06/20 documented as of this encounter
--- OUTSIDE RECORDS SUMMARY | 2024-08-16 07:46 | XMS_ITS | Encounter Summary ---
Author Organization [facility] Home [facility] Address [address] [place] [address] Phone Care Team Providers Care Executive Chef Assistant Name Role Phone Gucci Manrique MD Primary Care Provider [phone] Encounter Details Date Type Department Care Team (Late st Contact Info) Description 02/17/2022 Orders Only [facility] [address] [place] [phone] Daniel Celaya [facility] Social History Tobacco Use Types Packs/Day Years Used Date Smoking Tobacco: Never Smokeless Tobacco: Never Alcohol Use Standard Drinks/Week Comments Yes 0 (1 standard drink = 0.6 oz pur e alcohol) Comments Unknown Sex and Gender Information Value Date Recorded Sex Assigned at Not on file Legal Sex Female 12:12 AM FENCE INSTALLER FOREMAN Gender Identity Not on file Sexual Orientation Not on file 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 Current weight as of 07/09/20: 106.6kg. Premedicate [...] filedocumented in this encounter Care Teams Executive Chef Assistant Relationship Specialty Start Date End Date Gucci Manrique MD PCP - General Family Medicine 07/06/20 documented as of this encounter
--- OUTSIDE RECORDS SUMMARY | 2024-08-16 07:46 | XMS_ITS | Encounter Summary ---
Author Organization [facility] Home Care Servic es Address [address] [place] [address] Phone Care Team Providers Care Home Theatre Technician Name Role Phone Gucci Manrique MD Primary Care Provider [phone] Encounter Details Date Type Department Care Team (Late st Contact Info) Description 11/11/2021 Home Care Visit 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
--- OUTSIDE RECORDS SUMMARY | 2024-08-16 07:46 | XMS_ITS | Encounter Summary ---
Author Organization [facility] Address [address] [place] [address] Phone Care Team Providers Care Optical Goods Worker Name Role Phone Gucci Manrique MD Primary Care Provider + [phone] Reason for Visit * Reason Comments Crohn's Disease * Medication Authorization (Routine) - Closed Specialty Diagnoses / Procedures Referred By Carolina song Referred To Contact Shreya Platt MD [address] [facility] [address] [place] [address] Phone: tel: fax: Referral ID Status Reason Start Date Expiration Date Visits Re quested Visits Authorized [id number] Closed 12/22/2021 01/21/2023 1 1 Encounter Details Date Type Department Care Team (Latest Contact Info) Description 12/21/2021 9:00 AM CDT Home Care Visit [facility] Health [address] [address] [address] [place] [address] Bipin Leiva RN SN INFUSION TREATMENT ROOM Social History Tobacco Use Types Packs/Day Years Used Date Smoking Tobacco: Never Smokeless Tobacco: Never Alcohol Use Standard Drinks/Week Comments Yes 0 (1 standard drink = 0.6 oz pur e alcohol) Comments Unknown Sex and Gender Information Value Date Recorded Sex Assigned at Not on file Legal Sex Female 12:12 AM DRYWALLER Gender Identity Not on file Sexual Orientation Not on file 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 Instruct patient on how to recognize signs and symptoms of infection and when to notify HH nurse and/or physician. Problem:Learning/Teac adi Needs - IV Therapy Completed Patient instructed on frequent/proper hand-washing techniques, [place] precautions, avoid crowds and persons with known [...] understanding. documented in this encounter Care Teams Optical Goods Worker Relationship Specialty Start Date End Date Gucci Manrique MD PCP - General Family Medicine 07/06/20 documented as of this encounter
--- OUTSIDE RECORDS SUMMARY | 2024-08-16 07:46 | XMS_ITS | Encounter Summary ---
Author Organization [facility] Address [address] [place] [address] Phone Care Team Providers Care Hand Reamer Name Role Phone Gucci Manrique MD Primary Care Provider + [phone] Reason for Visit * Reason Comments Crohn's Disease * Medication Authorization (Routine) - Closed Specialty Diagnoses / Procedures Referred By Carolina song Referred To Contact Shreya Platt MD [address] [facility] [address] [place] [address] Phone: tel: fax: Referral ID Status Reason Start Date Expiration Date Visits Re quested Visits Authorized [id number] Closed 04/22/2022 05/22/2023 1 1 Encounter Details Date Type Department Care Team (Latest Contact Info) Description 04/21/2022 10:00 AM CDT Home Care Visit [facility] [address] [address] [address] [place] [address] Bipin Leiva RN SN INFUSION TREATMENT ROOM Social History Tobacco Use Types Packs/Day Years Used Date Smoking Tobacco: Never Smokeless Tobacco: Never Alcohol Use Standard Drinks/Week Comments Yes 0 (1 standard drink = 0.6 oz pur e alcohol) Comments Unknown Sex and Gender Information Value Date Recorded Sex Assigned at Not on file Legal Sex Female 12:12 AM MOLD MAKER HELPER Gender Identity Not on file Sexual Orientation Not on file 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 Instruct patient on how to recognize signs and symptoms of infection and when to notify HH nurse and/or physician. Problem:Learning/Teac adi Needs - IV Therapy Completed Patient instructed on frequent/proper hand-washing techniques, [place] precautions, avoid crowds and persons with known [...] site. documented in this encounter Care Teams Hand Reamer Relationship Specialty Start Date End Date Gucci Manrique MD PCP - General Family Medicine 07/06/20 documented as of this encounter
--- OUTSIDE RECORDS SUMMARY | 2024-08-16 07:46 | XMS_ITS | Encounter Summary ---
Author Organization [facility] Address [address] [place] [address] Phone Care Team Providers Care Remediation Technician Name Role Phone Gcuci Manrique MD Primary Care Provider + [phone] Reason for Visit * Reason Comments Pelvic Pain * Medication Authorization (Routine) - Closed Specialty Diagnoses / Procedures Referred By Carolina song Referred To Contact Shreya Platt MD [address] [facility] [address] [place] [address] Phone: tel: fax: Referral ID Status Reason Start Date Expiration Date Visits Re quested Visits Authorized [id number] Closed 09/21/2022 10/21/2023 1 1 Encounter Details Date Type Department Care Team (Latest Contact Info) Description 09/21/2022 9:00 AM PALEOLOGIST Home Care Visit [facility] Health [address] [address] [address] [place] [address] Jhon Jurado RN SN INFUSION TREATMENT ROOM Social History Tobacco Use Types Packs/Day Years Used Date Smoking Tobacco: Never Smokeless Tobacco: Never Alcohol Use Standard Drinks/Week Comments Yes 0 (1 standard drink = 0.6 oz pur e alcohol) Comments Unknown Sex and Gender Information Value Date Recorded Sex Assigned at Not on file Legal Sex Female 12:12 AM PALEOLOGIST Gender Identity Not on file Sexual Orientation Not on file 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 OLOGIST * Home Health Plan for Next Visit - Jhon Jurado, AMADOU - 09/21/2022 10:53 AM CST Reason for today's visit: Inflectra infusion Discuss plan of care with the patient Discharge planning -- none at this time Plan for next visit in 4 weeks for same OLOGIST documented in this encounter Plan of Treatment [...] Crohn's DiseaseIndications:Crohn's Disease Given 09/21/2022 10:30 AM PALEOLOGIST 500 mg documented in this encounter Home [...] home health visit Disciplines: SN, PT, OT, [place] TOWER LOADER, DIRECTOR OF PHARMACY, Skilled Disciplines Monitor patient's vital signs every [...] strategies to prevent infection: frequent/proper hand-washing techniques, [place] precautions, avoid crowds and persons with known [...] Scheduled documented in this encounter Care Teams Remediation Technician Relationship Specialty Start Date End Date Gucci Manrique MD PCP - General Family Medicine 07/06/20 documented as of this encounter
--- OUTSIDE RECORDS SUMMARY | 2024-08-16 07:46 | XMS_ITS | Encounter Summary ---
Author Organization [facility] Address [address] [place] [address] Phone Care Team Providers Care Junior Net Developer Name Role Phone Gucci Manrique MD Primary Care Provider [phone] Reason for Visit * Reason Comments Crohn's Disease * Medication Authorization (Routine) - Closed Specialty Diagnoses / Procedures Referred By Carolina song Referred To Contact Shreya Platt MD [address] [facility] [address] [place] [address] Phone: tel: fax: Referral ID Status Reason Start Date Expiration Date Visits Re quested Visits Authorized [id number] Closed 11/16/2022 12/16/2023 1 1 Encounter Details Date Type Department Care Team (Latest Contact Info) Description 11/16/2022 9:00 AM CDT Home Care Visit [facility] Health [address] [address] [address] [place] [address] Leonila Grover RN SN INFUSION TREATMENT ROOM [...] on file Legal Sex Female 12:12 AM FIRE MANAGEMENT TECHNICIAN Gender Identity Not on file Sexual Orientation Not on file 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 Not on file [...] at confirmed 29weeks and follows closely with E COMMERCE DIRECTOR [facility], not in [facility] network, and GI for ongoing care.Orders confirmed [...] Dose Rate Site 0.9 % sodium chloride ([facility] sodium chloride 0.9%) injection 10 mL, [...] Type -SN Infusion Gail tment Room Discipline -Half-Way Problems Problem Description Start Date Status Goals Interve ntions Medications Disciplines: Half-Way Management of medications 11/08/2021 Active 1 goal linked to scheduled/documen mauricio intervention 6 goal interventions scheduled/documen mauricio in this visit Monitor patient's vital signs every home health visit Disciplines: SN, PT, OT, PICU NURSE, DIGITAL PRODUCTION OPERATOR, Skilled Disciplines Monitor patient's vital signs [...] visit Specialty Medication - General Disciplines: Half-Way SN to provide safe assessment of patient [...] strategies to prevent infection: frequent/proper hand-washing techniques, [place] precautions, avoid crowds and persons with known [...] Scheduled documented in this encounter Care Teams Junior Net Developer Relationship Specialty Start Date End Date Gucci Manrique MD PCP - General Family Medicine 07/06/20 documented as of this encounter
--- OUTSIDE RECORDS SUMMARY | 2024-08-16 07:46 | XMS_ITS | Encounter Summary ---
Author Organization [facility] Address [address] [place] [address] Phone Care Team Providers Care Assembler Billiard Table Name Role Phone Gucci Manrique MD Primary Care Provider [phone] Reason for Visit * Reason Comments Crohn's Disease * Medication Authorization (Routine) - Closed Specialty Diagnoses / Procedures Referred By Carolina song Referred To Contact Shreya Platt MD [address] [facility] [address] [place] [address] Phone: tel: fax: Referral ID Status Reason Start Date Expiration Date Visits Re quested Visits Authorized Closed 02/16/2022 03/18/2023 1 1 Encounter Details Date Type Department Care Team (Latest Contact Info) Description 02/16/2022 9:00 AM CDT Home Care Visit [facility] Health [address] [address] [address] [place] [address] Bipin Leiva RN SN INFUSION TREATMENT ROOM Social History Tobacco Use Types Packs/Day Years Used Date Smoking Tobacco: Never Smokeless Tobacco: Never Alcohol Use Standard Drinks/Week Comments Yes 0 (1 standard drink = 0.6 oz pur e alcohol) Comments Unknown Sex and Gender Information Value Date Recorded Sex Assigned at Not on file Legal Sex Female 12:12 AM MEDICAL OPERATIONS SUPERVISOR Gender Identity Not on file Sexual Orientation Not on file 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 Instruct patient on how to recognize signs and symptoms of infection and when to notify HH nurse and/or physician. Problem:Learning/Teac adi Needs - IV Therapy Completed Patient instructed on frequent/proper hand-washing techniques, [place] precautions, avoid crowds and persons with known [...] site. documented in this encounter Care Teams Assembler Billiard Table Relationship Specialty Start Date End Date Gucci Manrique MD PCP - General Family Medicine 07/06/20 documented as of this encounter
--- OUTSIDE RECORDS SUMMARY | 2024-08-16 07:46 | XMS_ITS | Encounter Summary ---
Author Organization [facility] Address [address] [place] [address] Phone Care Team Providers Care Regional Operations Manager Name Role Phone Gucci Manrique MD Primary Care Provider + [phone] Reason for Visit * Reason Comments Crohn's Disease * Medication Authorization (Routine) - Closed Specialty Diagnoses / Procedures Referred By Carolina song Referred To Contact Shreya Platt MD [address] [facility] [address] [place] [address] Phone: tel: fax: Referral ID Status Reason Start Date Expiration Date Visits Re quested Visits Authorized [id number] Closed 11/26/2021 12/26/2022 1 1 Encounter Details Date Type Department Care Team (Latest Contact Info) Description 11/24/2021 10:00 AM CDT Home Care Visit [facility] Health [address] [address] [address] [place] [address] Bipin Leiva RN SN INFUSION TREATMENT ROOM Social History Tobacco Use Types Packs/Day Years Used Date Smoking Tobacco: Never Smokeless Tobacco: Never Alcohol Use Standard Drinks/Week Comments Yes 0 (1 standard drink = 0.6 oz pur e alcohol) Comments Unknown Sex and Gender Information Value Date Recorded Sex Assigned at Not on file Legal Sex Female 12:12 AM ICE CREAM FREEZER Gender Identity Not on file Sexual Orientation Not on file 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 Instruct patient on how to recognize signs and symptoms of infection and when to notify HH nurse and/or physician. Problem:Learning/Teac adi Needs - IV Therapy Completed Patient instructed on frequent/proper hand-washing techniques, [place] precautions, avoid crowds and persons with known [...] understanding. documented in this encounter Care Teams Regional Operations Manager Relationship Specialty Start Date End Date Gucci Manrique MD PCP - General Family Medicine 07/06/20 documented as of this encounter
--- OUTSIDE RECORDS SUMMARY | 2024-08-16 07:46 | XMS_ITS | Encounter Summary ---
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 11/08/2021 Active 1 goal linked to scheduled/documen mauricio intervention 1 goal intervention scheduled/documen mauricio in this visit Safety concerns Disciplines: Skilled Disciplines Alteration in safety 11/08/2021 Active 1 goal linked to scheduled/documen mauricio intervention 1 goal intervention scheduled/documen mauricio in this visit Specialty Medication - General Disciplines: [facility] SN to provide safe assessment of patient prior to use of general specialty medication 11/08/2021 Active - 2 problem interventions scheduled/documen mauricio in this visit Learning/Teachin g Needs - IV Therapy Disciplines: [facility] Teaching and learning needs for IV therapy [...] strategies to prevent infection: frequent/proper hand-washing techniques, [place] precautions, avoid crowds and persons with known [...] Scheduled documented in this encounter Care Teams Health Care Legal Assistant Relationship Specialty Start Date End Date Gucci Manrique MD PCP - General Family Medicine 07/06/20 documented as of this encounter
--- OUTSIDE RECORDS SUMMARY | 2024-08-16 07:46 | XMS_ITS | Encounter Summary ---
Author Organization [facility] Address [address] [place] [address] Phone Care Team Providers Care Electrical Wiring Lineman Name Role Phone Gucci Manrique MD Primary Care Provider [phone] Reason for Visit * Medication Authorization (Routine) - Closed Specialty Diagnoses / Procedures Referred By Contkarthikeyan t Referred To Contact Shreya Platt MD [address] [address] Phone: tel: fax: Referral ID Status Reason Start Date Expiration Date Visits Re quested Visits Authorized [id number] Closed 10/19/2022 11/18/2023 1 1 Encounter Details Date Type Department Care Team (Latest Contact Info) Description 10/19/2022 9:00 AM FERMENTOLOGIST Home Care Visit [facility] Health [address] [address] [address] [place] [address] Kortney Catalan RN SN INFUSION TREATMENT ROOM Social History Tobacco Use Types Packs/Day Years Used Date Smoking Tobacco: Never Smokeless Tobacco: Never Alcohol Use Standard Drinks/Week Comments Yes 0 (1 standard drink = 0.6 oz pur e alcohol) Comments Unknown Sex and Gender Information Value Date Recorded Sex Assigned at Not on file Legal Sex Female 12:12 AM FERMENTOLOGIST Gender Identity Not on file Sexual Orientation Not on file 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 Not on file Not on file documented as of this encounter Last Filed Vital Signs Vital Sign Reading Time Taken Comments Blood Pressure 112/68 10/19/2022 12:52 PM FERMENTOLOGIST Pulse 77 10/19/2022 12:52 PM FERMENTOLOGIST Temperature 37 ??C (98.6 ??F) 10/19/2022 12:52 PM FERMENTOLOGIST Respiratory Rate 16 10/19/2022 12:52 PM FERMENTOLOGIST Oxygen Saturation 97% 10/19/2022 12:52 PM FERMENTOLOGIST Inhaled Oxygen Concentration - - Weight 110.5 kg (243 lb 8 oz) 10/19/2022 9:25 AM FERMENTOLOGIST Height 162.6 cm (5' 4 ) 10/19/2022 9:25 AM FERMENTOLOGIST Body Mass Index 41.8 10/19/2022 9:25 AM FERMENTOLOGIST documented in this encounter Miscellaneous Notes * Home Health Plan for Next Visit - Kortney Catalan RN - 10/19/2022 10:18 AM CST Reason for today's visit assessments, peripheral IV placement, and medication administration Discuss plan of care with patient Discharge planning when intermediate is no longer needed Plan for next visit assessments, peripheral IV placement, and medication administration. ENTOLOGIST documented in this encounter Plan of Treatment Not on file documented as of this encounter Visit Diagnoses Not on filedocumented in this encounter Administered Medications Active Administered Medications - up to 3 most recent administrations Medication Order MAR Action Action Date Dose Rate Site 0.9 % sodium chloride ([facility] sodium chloride 0.9%) injection 10 mL, intravenous, As needed, line care, Starting on Sun10/19/22 at 0949, Indications: Maintain Patency of Indwelling Vascular CatheterIndications:Maintain Patency of Indwelling Vascular Catheter Given 10/19/2022 9:20 AM FERMENTOLOGIST 30 mL Inactive Administered Medications - up to 3 most recent administrations Medication Order MAR Action Action Date Dose Rate Site acetaminophen (TYLENOL) 500 mg tablet 1,000 mg, oral, Every 4 weeks, First dose on [place] 10/19/22 at 1200, Please give 1000mg of acetaminophen (Tylenol) 30 minutes prior to Inflectra infusion, Indications: infusion reaction prophylaxisIndications:infusion reaction prophylaxis Given 10/19/2022 9:35 AM FERMENTOLOGIST 1,000 mg inFLIXimab-dyyb 500 mg in sodium chloride 0.9% 0.9% IVPB 500 mg, intravenous, Every 4 weeks, First dose on [place] 10/19/22 at 1200, Infuse 500mg Infliximab in 250mL Normal Saline over 2 hours with 1.2 micron filter every 4 weeks., Indications: Crohn's DiseaseIndications:Crohn's Disease Given 10/19/2022 10:11 AM FERMENTOLOGIST 500 mg loratadine 10 mg capsule 10 mg, oral, Every 4 weeks, First dose on [place] 10/19/22 at 1200, Please give 10mg of loratadine (Claritin) 30 minutes prior to Inflectra infusion, Indications: infusion reaction prophylaxisIndications:infusion reaction prophylaxis Given 10/19/2022 9:35 AM FERMENTOLOGIST 10 mg documented in this encounter Home Health Visit - Care Plan Visit Details Visit Type -SN Infusion Gail tment Room Discipline -Jail Problems Problem Description Start Date Status Goals Interve ntions Medications Disciplines: Jail Management of medications 11/08/2021 Active 1 goal linked to scheduled/documen mauricio intervention 6 goal interventions scheduled/documen mauricio in this visit Monitor patient's vital signs every home health visit Disciplines: SN, PT, OT, CHIEF NURSE ANESTHETIST, RN CARDIOVASCULAR, Skilled Disciplines Monitor patient's vital signs every [...] this visit Specialty Medication - General Disciplines: Jail SN to provide safe assessment of patient prior to use of general specialty medication 11/08/2021 Active - 2 problem interventions scheduled/documen amuricio in this visit Learning/Teachin g Needs - IV Therapy Disciplines: Jail Teaching and learning needs for IV therapy [...] strategies to prevent infection: frequent/proper hand-washing techniques, [place] precautions, avoid crowds and persons with known [...] Completed documented in this encounter Care Teams Electrical Wiring Lineman Relationship Specialty Start Date End Date Gucci Manrique MD PCP - General Family Medicine 07/06/20 documented as of this encounter
--- OUTSIDE RECORDS SUMMARY | 2024-08-16 07:46 | XMS_ITS | Encounter Summary ---
Author Organization [facility] Address [address] [place] [address] Phone Care Team Providers Care Employment Office Clerk Name Role Phone Gucci Manrique MD Primary Care Provider [phone] Reason for Visit * Reason Comments Crohn's Disease * Medication Authorization (Routine) - Closed Specialty Diagnoses / Procedures Referred By Carolina song Referred To Contact Shreya Platt MD [address] [facility] [address] [place] [address] Phone: tel: fax: Referral ID Status Reason Start Date Expiration Date Visits Re quested Visits Authorized [id number] Closed 12/14/2022 01/13/2024 1 1 Encounter Details Date Type Department Care Team (Latest Contact Info) Description 12/14/2022 9:00 AM CDT Home Care Visit [facility] Health [address] [address] [address] [place] [address] Leonila Grover RN SN INFUSION TREATMENT ROOM [...] on file Legal Sex Female 12:12 AM SPACER TYPE BAR AND SEGMENT Gender Identity Not on file Sexual Orientation Not on file 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 Not on file Not [...] Dose Rate Site 0.9 % sodium chloride ([facility] sodium chloride 0.9%) injection 10 [...] home health visit Disciplines: SN, PT, OT, WET SANDER, [place], Skilled Disciplines Monitor patient's vital signs every [...] strategies to prevent infection: frequent/proper hand-washing techniques, [place] precautions, avoid crowds and persons with known [...] Scheduled documented in this encounter Care Teams Employment Office Clerk Relationship Specialty Start Date End Date Gucci Manrique MD PCP - General Family Medicine 07/06/20 documented as of this encounter
--- OUTSIDE RECORDS SUMMARY | 2024-08-16 07:46 | XMS_ITS | Encounter Summary ---
Author Organization [facility] Address [address] [place] [address] Phone Care Team Providers Care Pe Teacher Name Role Phone Gucci Manrique MD Primary Care Provider + [phone] Reason for Visit * Reason Comments Crohn's Disease * Medication Authorization (Routine) - Closed Specialty Diagnoses / Procedures Referred By Carolina song Referred To Contact Shreya Platt MD [address] [facility] [address] [place] [address] Phone: tel: fax: Referral ID Status Reason Start Date Expiration Date Visits Re quested Visits Authorized [id number] Closed 06/29/2022 07/29/2023 1 1 Encounter Details Date Type Department Care Team (Latest Contact Info) Description 06/28/2022 10:30 AM CDT Home Care Visit [facility] [address] [address] [address] [place] [address] Bipin Leiva RN SN INFUSION TREATMENT ROOM Social History Tobacco Use Types Packs/Day Years Used Date Smoking Tobacco: Never Smokeless Tobacco: Never Alcohol Use Standard Drinks/Week Comments Yes 0 (1 standard drink = 0.6 oz pur e alcohol) Comments Unknown Sex and Gender Information Value Date Recorded Sex Assigned at Not on file Legal Sex Female 12:12 AM HADOOP SOFTWARE ENGINEER Gender Identity Not on file Sexual Orientation Not on file 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 Not on file [...] Dose Rate Site 0.9 % sodium chloride ([facility] sodium chloride 0.9%) injection 10 mL, [...] home health visit Disciplines: SN, PT, OT, CAGE MANAGER, MONOGRAM MAKER, Skilled Disciplines Monitor patient's vital signs [...] Learning/Mira sorensen Needs - IV Therapy Disciplines: Fdc Teaching [...] strategies to prevent infection: frequent/proper hand-washing techniques, [place] precautions, avoid crowds and persons with known infections, staying current with immunizations, s/s of infection, use of antibiotics and encourage adequate diet and fluid intake. Instruct patient on how to recognize signs and symptoms of infection and when to notify HH nurse and/or physician. Problem:Learning/Teac adi Needs - IV Therapy Completed Patient instructed on frequent/proper hand-washing techniques, [place] precautions, avoid crowds and persons with known [...] site. documented in this encounter Care Teams Pe Teacher Relationship Specialty Start Date End Date Gucci Manrique MD PCP - General Family Medicine 07/06/20 documented as of this encounter
--- OUTSIDE RECORDS SUMMARY | 2024-08-16 07:46 | XMS_ITS | Encounter Summary ---
Author Organization [facility] Address [address] [place] [address] Phone Care Team Providers Care In Service Educator Name Role Phone Gucci Manrique MD Primary Care Provider + [phone] Reason for Visit * Reason Comments Crohn's Disease * Medication Authorization (Routine) - Closed Specialty Diagnoses / Procedures Referred By Carolina song Referred To Contact Shreya Platt MD [address] [facility] [address] [place] [address] Phone: tel: fax: Referral ID Status Reason Start Date Expiration Date Visits Re quested Visits Authorized [id number] Closed 07/27/2022 08/26/2023 1 1 Encounter Details Date Type Department Care Team (Latest Contact Info) Description 07/27/2022 9:00 AM TAILER IN Home Care Visit [facility] [address] [address] [address] [place] [address] Bipin Leiva RN SN INFUSION TREATMENT ROOM Social History Tobacco Use Types Packs/Day Years Used Date Smoking Tobacco: Never Smokeless Tobacco: Never Alcohol Use Standard Drinks/Week Comments Yes 0 (1 standard drink = 0.6 oz pur e alcohol) Comments Unknown Sex and Gender Information Value Date Recorded Sex Assigned at Not on file Legal Sex Female 12:12 AM TAILER IN Gender Identity Not on file Sexual Orientation Not on file 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 Not on file Not on file documented as of this encounter Last Filed Vital Signs Vital Sign Reading Time Taken Comments Blood Pressure 112/74 07/27/2022 1:04 PM TAILER IN Pulse 76 07/27/2022 1:04 PM TAILER IN Temperature 37.1 ??C (98.7 ??F) 07/27/2022 1:04 PM CS T Respiratory Rate 16 07/27/2022 1:04 PM TAILER IN Oxygen Saturation 98% 07/27/2022 1:04 PM TAILER IN Inhaled Oxygen Concentration - - Weight - - Height 162.6 cm (5' 4 ) 07/27/2022 9:45 AM TAILER IN Body Mass Index - - documented in this encounter Miscellaneous Notes * Home Health Visit Narrative - Bipin Leiva, AMADOU - 07/27/2022 12:00 AM TAILER IN Patient Covid screen performed prior to arrival. [...] Olsen if complications occur. Patient verbalizes understanding. ER IN documented in this encounter Plan of Treatment Not on file documented as of this encounter Visit Diagnoses Not on filedocumented in this encounter Administered Medications Active Administered Medications - up to 3 most recent administrations Medication Order MAR Action Action Date Dose Rate Site 0.9 % sodium chloride (IN[facility] sodium chloride 0.9%) injection 10 mL, intravenous, As needed, line care, Starting on [place] 07/27/22 at 1647, Indications: Maintain Patency of Indwelling Vascular CatheterIndications:Maint ain Patency of Indwelling Vascular Catheter Given 07/27/2022 10:30 AM TAILER IN 10 mL Left Antecubital Inactive Administered Medications [...] fusion reaction prophylaxis Given 07/27/2022 9:55 AM TAILER IN 1,000 mg inFLIXimab-dyyb 500 mg in sodium chloride 0.9% 0.9% IVPB 500 mg, intravenous, Every 4 weeks, First dose on [place] 07/27/22 at 1800, Infuse 500mg Infliximab in 250mL Normal Saline over 2 hours with 1.2 micron filter every 4 weeks., Indications: Crohn's DiseaseIndications:Crohn' s Disease Given 07/27/2022 10:30 AM TAILER IN 500 mg Left Antecubital loratadine 10 mg capsule 10 mg, oral, Every 4 weeks, First dose on [place] 07/27/22 at 1800, Please give 10mg of loratadine (Claritin) 30 minutes prior to Inflectra infusion, Indications: infusion reaction prophylaxisIndications:in fusion reaction prophylaxis Given 07/27/2022 9:55 AM TAILER IN 10 mg documented in this encounter Home [...] home health visit Disciplines: SN, PT, OT, TOOLING INSPECTOR, DRUM BUILDER, Skilled Disciplines Monitor patient's vital signs every [...] strategies to prevent infection: frequent/proper hand-washing techniques, [place] precautions, avoid crowds and persons with known infections, staying current with immunizations, s/s of infection, use of antibiotics and encourage adequate diet and fluid intake. Instruct patient on how to recognize signs and symptoms of infection and when to notify HH nurse and/or physician. Problem:Learning/Teac adi Needs - IV Therapy Completed Patient instructed on frequent/proper hand-washing techniques, [place] precautions, avoid crowds and persons with known [...] site. documented in this encounter Care Teams In Service Educator Relationship Specialty Start Date End Date Gucci Manrique MD PCP - General Family Medicine 07/06/20 documented as of this encounter
--- OUTSIDE RECORDS SUMMARY | 2024-08-16 07:46 | XMS_ITS | Encounter Summary ---
Author Organization [facility] Address [address] [place] [address] Care Team Providers Care Textile Coating Machine Operator Name Role Phone Gucci Manrique MD Primary Care Provider + [phone] Reason for Referral * Diagnostic Imaging (Routine) - Closed Specialty Diagnoses / Procedures Referred By Contac t Referred To Contact Diagnoses Low back pain, unspecified back pain laterality, unspecified chronicity, unspecified whether sciatica present Procedures XR Spine Lumbar Ap Lat Flex Ext min 4 Views Amie Quiroga CNS Phone: tel: fax: [address] [address] [place] [address] Referral ID Status Reason Start Date Expiration Date Visits Re quested Visits Authorized [id number] Closed 07/08/2020 08/07/2021 1 1 CVOR Reason for Visit * Diagnostic Imaging (Routine) - Closed Specialty Diagnoses / Procedures Referred By Contac t Referred To Contact Diagnoses Low back pain, unspecified back pain laterality, unspecified chronicity, unspecified whether sciatica present Procedures XR Spine Lumbar Ap Lat Flex Ext min 4 Views Amie Quiroga CNS Phone: tel: fax: [address] [address] [place] [address] Referral ID Status Reason Start Date Expiration Date Visits Re quested Visits Authorized [id number] Closed 07/08/2020 08/07/2021 1 1 Encounter Details Date Type Department Care Team (Latest Contact Info) Description 07/09/2020 9:27 AM RN CVOR - 07/09/2020 11:59 PM RN CVOR Hospital Encounter [id number] Radiology [address] 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 Dictated by: Rodolfo Winkler MD, PHD The radiology attending physician has personally reviewed this study, and had reviewed and/or edited this written report and agrees with it. Electronically signed by: Ramiro Bronson MD, PHD Narrative 07/09/2020 10:23 AM RN CVOR EXAMINATION: XR SPINE LUMBAR AP LAT FLEX [...] Bronson MD, PHD us [employer] [employer] IMG XR PROCEDURES Final Res ult documented in this encounter Visit Diagnoses Diagnosis Low back pain, unspecified back pain laterality, unspecified chronicity, unspecified whether sciatica present documented in this encounter Care Teams Textile Coating Machine Operator Relationship Specialty Start Date End Date Gucci Manrique MD PCP - General Family Medicine 07/06/20 documented as of this encounter
--- OUTSIDE RECORDS SUMMARY | 2024-08-16 07:46 | XMS_ITS | Encounter Summary ---
Author Organization [facility] Healthcare Address [address] [place] [address] Care Team Providers Care Refrigerating Machine Operator Name Role Phone Gucci Manrique MD Primary Care Provider + [phone] Encounter Details Date Type Department Care Team (Late st Contact Info) Description 11/09/2021 Orders Only [facility] Operating Room [address] [place] [address] Amie Quiroga, [facility] [address] [facility] [address] [place] [address] Social History Tobacco Use Types Packs/Day Years Used Date Smoking Tobacco: Never Smokeless Tobacco: Never Alcohol Use Standard Drinks/Week Comments Yes 0 (1 standard drink = 0.6 oz pur e alcohol) Comments Unknown Sex and Gender Information Value Date Recorded Sex Assigned at Not on file Legal Sex Female 12:12 AM IMPORT EXPORT MANAGER Gender Identity Not on file Sexual Orientation Not on file 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
--- OUTSIDE RECORDS SUMMARY | 2024-08-16 07:46 | XMS_ITS | Encounter Summary ---
Author Organization [facility] Home [facility] Address [address] [place] [address] Phone Care Team Providers Care Auto Body Shop Manager Name Role Phone Gucci Manrique MD Primary Care Provider [phone] Encounter Details Date Type Department Care Team (Late st Contact Info) Description 01/20/2022 Orders Only [facility] [address] [place] [id number] Daniel Celaya, [facility] Social History Tobacco Use Types Packs/Day Years Used Date Smoking Tobacco: Never Smokeless Tobacco: Never Alcohol Use Standard Drinks/Week Comments Yes 0 (1 standard drink = 0.6 oz pur e alcohol) Comments Unknown Sex and Gender Information Value Date Recorded Sex Assigned at Not on file Legal Sex Female 12:12 AM WORK ORDER DETAILER Gender Identity Not on file Sexual Orientation Not on file 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
--- OUTSIDE RECORDS SUMMARY | 2024-08-16 07:46 | XMS_ITS | Encounter Summary ---
Author Organization [facility] Home Care [facility] es Address [address] [place] [address] Phone Care Team Providers Care Manager Style Name Role Phone Gucci Manrique MD Primary Care Provider [phone] Reason for Visit * Reason Comments Crohn's Disease * Medication Authorization (Routine) - Closed Specialty Diagnoses / Procedures Referred By Carolina song Referred To Contact Shreya Platt MD [address] [facility] [address] [place] [address] Phone: tel: fax: Referral ID Status Reason Start Date Expiration Date Visits Re quested Visits Authorized [id number] Closed 08/25/2022 09/24/2023 1 1 Encounter Details Date Type Department Care Team (Latest Contact Info) Description 08/24/2022 9:00 AM ANAESTHESIOLOGIST Home Care Visit [facility] [address] [address] [address] [place] [address] Bipin Leiva RN SN INFUSION TREATMENT ROOM Social History Tobacco Use Types Packs/Day Years Used Date Smoking Tobacco: Never Smokeless Tobacco: Never Alcohol Use Standard Drinks/Week Comments Yes 0 (1 standard drink = 0.6 oz pur e alcohol) Comments Unknown Sex and Gender Information Value Date Recorded Sex Assigned at Not on file Legal Sex Female 12:12 AM ANAESTHESIOLOGIST Gender Identity Not on file Sexual Orientation Not on file 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 Not on file Not on file documented as of this encounter Last Filed Vital Signs Vital Sign Reading Time Taken Comments Blood Pressure 98/60 08/24/2022 2:20 PM ANAESTHESIOLOGIST Pulse 83 08/24/2022 2:20 PM ANAESTHESIOLOGIST Temperature 36.8 ??C (98.3 ??F) 08/24/2022 2:20 PM CS T Respiratory Rate 16 08/24/2022 2:20 PM ANAESTHESIOLOGIST Oxygen Saturation 98% 08/24/2022 2:20 PM ANAESTHESIOLOGIST Inhaled Oxygen Concentration - - Weight - - Height 162.6 cm (5' 4 ) 08/24/2022 10:50 AM ANAESTHESIOLOGIST Body Mass Index - - documented in this encounter Miscellaneous Notes * Home Health Visit Narrative - Bipin Leiva, AMADOU - 08/24/2022 12:00 AM ANAESTHESIOLOGIST Patient Covid screen performed prior to arrival. [...] EMS if complications occur. Patient verbalizes understanding. STHESIOLOGIST documented in this encounter Plan of Treatment Not on file documented as of this encounter Visit Diagnoses Not on filedocumented in this encounter Administered Medications Active Administered Medications - up to 3 most recent administrations Medication Order MAR Action Action Date Dose Rate Site 0.9 % sodium chloride (IN[facility] sodium chloride 0.9%) injection 10 mL, intravenous, As needed, line care, Starting on Sun08/25/22 at 1632, Indications: Maintain Patency of Indwelling Vascular CatheterIndications:Maint ain Patency of Indwelling Vascular Catheter Given 08/24/2022 11:35 AM ANAESTHESIOLOGIST 10 mL Left Antecubital Inactive Administered Medications - up to 3 most recent administrations Medication Order MAR Action Action Date Dose Rate Site acetaminophen (TYLENOL) 500 mg tablet 1,000 mg, oral, Every 4 weeks, First dose on Sun08/25/22 at 1730, Please give 1000mg of acetaminophen (Tylenol) 30 minutes prior to Inflectra infusion, Indications: infusion reaction prophylaxisIndications:in fusion reaction prophylaxis Given 08/24/2022 11:05 AM ANAESTHESIOLOGIST 1,000 mg inFLIXimab-dyyb 500 mg in sodium chloride 0.9% 0.9% IVPB 500 mg, intravenous, Every 4 weeks, First dose on Sun08/25/22 at 1730, Infuse 500mg Infliximab in 250mL Normal Saline over 2 hours with 1.2 micron filter every 4 weeks., Indications: Crohn's DiseaseIndications:Crohn' s Disease Given 08/24/2022 11:35 AM ANAESTHESIOLOGIST 500 mg Left Antecubital loratadine 10 mg [...] home health visit Disciplines: SN, PT, OT, PULP BEATER, ATHLETIC TRAINER, Skilled Disciplines Monitor patient's vital signs every [...] strategies to prevent infection: frequent/proper hand-washing techniques, [place] precautions, avoid crowds and persons with known infections, staying current with immunizations, s/s of infection, use of antibiotics and encourage adequate diet and fluid intake. Instruct patient on how to recognize signs and symptoms of infection and when to notify HH nurse and/or physician. Problem:Learning/Teac adi Needs - IV Therapy Completed Patient instructed on frequent/proper hand-washing techniques, [place] precautions, avoid crowds and persons with known [...] site. documented in this encounter Care Teams Manager Style Relationship Specialty Start Date End Date Gucci Manrique MD PCP - General Family Medicine 07/06/20 documented as of this encounter
--- OUTSIDE RECORDS SUMMARY | 2024-08-16 07:46 | XMS_ITS | Encounter Summary ---
Author Organization [facility] Home [facility] Address [address] [place] [address] Phone Care Team Providers Care Skeet Operator Name Role Phone Gucci Manrique MD Primary Care Provider [phone] Encounter Details Date Type Department Care Team (Late st Contact Info) Description 11/08/2021 Orders Only [facility] [address] [place] [id number] Daniel Celaya RP Social History Tobacco Use Types Packs/Day Years Used Date Smoking Tobacco: Never Smokeless Tobacco: Never Alcohol Use Standard Drinks/Week Comments Yes 0 (1 standard drink = 0.6 oz pur e alcohol) Comments Unknown Sex and Gender Information Value Date Recorded Sex Assigned at Not on file Legal Sex Female 12:12 AM CORROSION ENGINEER Gender Identity Not on file Sexual Orientation Not on file 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 Current weight as of 07/09/20: 106.6kg. Premedicate [...] 24 added in this encounter Care Teams Skeet Operator Relationship Specialty Start Date End Date Gucci Manrique MD PCP - General Family Medicine 07/06/20 documented as of this encounter
--- OUTSIDE RECORDS SUMMARY | 2024-08-16 07:46 | XMS_ITS | Encounter Summary ---
Author Organization [facility] Home Care [facility] Address [address] [place] [address] Phone Care Team Providers Care Petroleum Plant Operator Name Role Phone Gucci Manrique MD Primary Care Provider [phone] Encounter Details Date Type Department Care Team (Late st Contact Info) Description 08/24/2022 Orders Only [facility] [address] [place] [phone] Daniel Celaya [facility] Social History Tobacco Use Types Packs/Day Years Used Date Smoking Tobacco: Never Smokeless Tobacco: Never Alcohol Use Standard Drinks/Week Comments Yes 0 (1 standard drink = 0.6 oz pur e alcohol) Comments Unknown Sex and Gender Information Value Date Recorded Sex Assigned at Not on file Legal Sex Female 12:12 AM PIERCING MACHINE OPERATOR Gender Identity Not on file Sexual Orientation Not on file Occupation Industry Job Start Date Job End Date POL[employer] Not on file Not on file Not on file documented as of this encounter Progress Notes * Daniel Celaya [facility] - 08/24/2022 3:33 PM CST FOC: Shikha Platt MD/ Jose Celaya, PharmD Continuation of therapy Please provide 1 retirement visit every 4 weeks for 52 weeks [...] for a weight gain/loss greater than 10% ([phone]). Current weight as of 07/09/20: 106.6kg. Premedicate [...] weeks for a total of 13 doses. CING MACHINE OPERATOR documented in this encounter Plan of Treatment Not on file documented as of this encounter Visit Diagnoses Not on filedocumented in this encounter Care Teams Petroleum Plant Operator Relationship Specialty Start Date End Date Gucci Manrique MD PCP - General Family Medicine 07/06/20 documented as of this encounter
--- OUTSIDE RECORDS SUMMARY | 2024-08-16 07:46 | XMS_ITS | Encounter Summary ---
Author Organization [facility] Home Care Servic es Address [address] [place] [address] Phone Care Team Providers Care Padder Cushion Name Role Phone Gucci Manrique MD Primary Care Provider [phone] Reason for Visit * Reason Comments Crohn's Disease * Medication Authorization (Routine) - Closed Specialty Diagnoses / Procedures Referred By Carolina song Referred To Contact Shreya Platt MD [address] [facility] [address] [place] [address] Phone: tel: fax: Referral ID Status Reason Start Date Expiration Date Visits Re quested Visits Authorized [id number] Closed 03/16/2022 04/15/2023 1 1 Encounter Details Date Type Department Care Team (Latest Contact Info) Description 03/16/2022 10:00 AM CDT Home Care Visit 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 Not on file Not [...] Dose Rate Site 0.9 % sodium chloride ([facility] sodium chloride 0.9%) injection 10 [...] ntions Medications Disciplines: Correction Management of medications 11/08/2021 Active 1 goal linked to scheduled/documen mauricio intervention 6 goal interventions scheduled/documen mauricio in this visit Monitor patient's vital signs every home health visit Disciplines: SN, PT, OT, SLATE HANDLER, FUSION JUNCTURE GRINDER, Skilled Disciplines Monitor patient's vital signs every [...] visit Specialty Medication - General Disciplines: Correction SN to provide safe assessment of patient prior to use of general specialty medication 11/08/2021 Active - 2 problem interventions scheduled/documen mauricio in this visit Learning/Teachazucena sorensen Needs - IV Therapy Disciplines: Correction Teaching [...] strategies to prevent infection: frequent/proper hand-washing techniques, [place] precautions, avoid crowds and persons with known infections, staying current with immunizations, s/s of infection, use of antibiotics and encourage adequate diet and fluid intake. Instruct patient on how to recognize signs and symptoms of infection and when to notify HH nurse and/or physician. Problem:Learning/Teac adi Needs - IV Therapy Completed Patient instructed on frequent/proper hand-washing techniques, [place] precautions, avoid crowds and persons with known [...] site. documented in this encounter Care Teams Padder Cushion Relationship Specialty Start Date End Date Gucci Manrique MD PCP - General Family Medicine 07/06/20 documented as of this encounter
--- OUTSIDE RECORDS SUMMARY | 2024-08-16 07:46 | XMS_ITS | Encounter Summary ---
Author Organization [facility] Address [address] [place] [address] Phone Care Team Providers Care Printer Slotter Operator Name Role Phone Gucci Manrique MD Primary Care Provider Encounter Details Date Type Department Care Team (Late st Contact Info) Description 05/02/2022 Plan of Care Documentation [facility] [address] [address] [address] [place] [address] Social History Tobacco Use Types Packs/Day Years Used Date Smoking Tobacco: Never Smokeless Tobacco: Never Alcohol Use Standard Drinks/Week Comments Yes 0 (1 standard drink = 0.6 oz pur e alcohol) Comments Unknown Sex and Gender Information Value Date Recorded Sex Assigned at Not on file Legal Sex Female 12:12 AM MEDICAL AFFAIRS LEADER Gender Identity Not on file Sexual Orientation Not on file 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
--- OUTSIDE RECORDS SUMMARY | 2024-08-16 07:46 | XMS_ITS | Encounter Summary ---
Author Organization [facility] Address [address] [place] [address] Phone Care Team Providers Care Confectionery Drops Machine Operator Name Role Phone Gucci Manrique MD Primary Care Provider [phone] Encounter Details Date Type Department Care Team ([facility] st Contact Info) Description 02/17/2022 Orders Only [facility] [address] [place] [id number] Daniel Celaya, [facility] Social History Tobacco Use Types Packs/Day Years Used Date Smoking Tobacco: Never Smokeless Tobacco: Never Alcohol Use Standard Drinks/Week Comments Yes 0 (1 standard drink = 0.6 oz pur e alcohol) Comments Unknown Sex and Gender Information Value Date Recorded Sex Assigned at Not on file Legal Sex Female 12:12 AM CONTINUOUS IMPROVEMENT DIRECTOR Gender Identity Not on file Sexual Orientation Not on file 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
--- OUTSIDE RECORDS SUMMARY | 2024-08-16 07:46 | XMS_ITS | Encounter Summary ---
Author Organization [facility] Address [address] [place] [address] Phone Care Team Providers Care Flight Software Test Engineer Name Role Phone Gucci Manrique MD Primary Care Provider [phone] Encounter Details Date Type Department Care Team (Late st Contact Info) Description 11/07/2022 Plan of Care Documentation 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 The patient is under my care, and I have authorized the services on this plan of care and will periodically review the plan. documented in this encounter Plan of Treatment Not on file documented as of this encounter Visit Diagnoses Not on filedocumented in this encounter Care Teams Flight Software Test Engineer Relationship Specialty Start Date End Date Gucci Manrique MD PCP - General Family Medicine 07/06/20 documented as of this encounter
--- OUTSIDE RECORDS SUMMARY | 2024-08-16 07:46 | XMS_ITS | Encounter Summary ---
Author Organization [facility] Address [address] [place] [address] Phone Care Team Providers Care Gauge And Weigh Machine Operator Name Role Phone Gucci Manrique MD Primary Care Provider [phone] Reason for Visit * Reason Comments Crohn's Disease * Medication Authorization (Routine) - Closed Specialty Diagnoses / Procedures Referred By Carolina song Referred To Contact Shreya Platt MD [address] [facility] [address] [place] [address] Phone: tel: fax: Referral ID Status Reason Start Date Expiration Date Visits Re quested Visits Authorized [id number] Closed 05/25/2022 06/24/2023 1 1 Encounter Details Date Type Department Care Team (Latest Contact Info) Description 05/25/2022 10:00 AM CDT Home Care Visit [facility] [address] [address] [address] [place] [address] Bipin Leiva RN SN INFUSION TREATMENT ROOM Social History Tobacco Use Types Packs/Day Years Used Date Smoking Tobacco: Never Smokeless Tobacco: Never Alcohol Use Standard Drinks/Week Comments Yes 0 (1 standard drink = 0.6 oz pur e alcohol) Comments Unknown Sex and Gender Information Value Date Recorded Sex Assigned at Not on file Legal Sex Female 12:12 AM WOOD BLOCK ARTIST Gender Identity Not on file Sexual Orientation Not on file 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 sodium chloride 0.9%) injection 10 mL, [...] home health visit Disciplines: SN, PT, OT, REAL ESTATE LOAN PROCESSOR, FOREMAN/PROJECT MANAGER, Skilled Disciplines Monitor patient's vital signs [...] strategies to prevent infection: frequent/proper hand-washing techniques, [place] precautions, avoid crowds and persons with known infections, staying current with immunizations, s/s of infection, use of antibiotics and encourage adequate diet and fluid intake. Instruct patient on how to recognize signs and symptoms of infection and when to notify HH nurse and/or physician. Problem:Learning/Teac adi Needs - IV Therapy Completed Patient instructed on frequent/proper hand-washing techniques, [place] precautions, avoid crowds and persons with known [...] site. documented in this encounter Care Teams Gauge And Weigh Machine Operator Relationship Specialty Start Date End Date Gucci Manrique MD PCP - General Family Medicine 07/06/20 documented as of this encounter
--- OUTSIDE RECORDS SUMMARY | 2024-08-16 07:46 | XMS_ITS | Encounter Summary ---
Author Organization [facility] Home [facility] Address [address] [place] [address] Phone Care Team Providers Care Database Programmer Analyst Name Role Phone Gucci Manrique MD Primary Care Provider [phone] Encounter Details Date Type Department Care Team (Latest Contact Info) Description 05/02/2022 Home Care Visit [facility] - [address] [address] [address] [place] [address] Bipin Leiva RN SN NON OASIS RECERTIFICATION Social History Tobacco Use Types Packs/Day Years Used Date Smoking Tobacco: Never Smokeless Tobacco: Never Alcohol Use Standard Drinks/Week Comments Yes 0 (1 standard drink = 0.6 oz pur e alcohol) Comments Unknown Sex and Gender Information Value Date Recorded Sex Assigned at Not on file Legal Sex Female 12:12 AM ANTHROPOLOGICAL LINGUIST Gender Identity Not on file Sexual Orientation Not on file Occupation Industry Job Start Date Job End Date [employer] Not on file Not on file Not on file documented as of this encounter Miscellaneous Notes * Home Health Visit Narrative - Bipin Leiva RN - 05/02/2022 12:00 AM CDT Patient recertified outside of [id number] visit. See last visit for most recent [...] home health visit Disciplines: SN, PT, OT, CSR RETAIL, RETAIL BEAUTY SPECIALIST, Skilled Disciplines Monitor patient's vital signs [...] strategies to prevent infection: frequent/proper hand-washing techniques, [place] precautions, avoid crowds and persons with known [...] Scheduled documented in this encounter Care Teams Database Programmer Analyst Relationship Specialty Start Date End Date Gucci Manrique MD PCP - General Family Medicine 07/06/20 documented as of this encounter
--- OUTSIDE RECORDS SUMMARY | 2024-08-16 07:46 | XMS_ITS | Encounter Summary ---
Author Organization [facility] Home [facility] Address [address] [place] [address] Phone Care Team Providers Care Coffee Shop Manager Name Role Phone Gucci Manrique MD Primary Care Provider [phone] Reason for Visit * Reason Comments Crohn's Disease * Medication Authorization (Routine) - Closed Specialty Diagnoses / Procedures Referred By Carolina song Referred To Contact Shreya Platt MD [address] [facility] [address] [place] [address] Phone: tel: fax: Referral ID Status Reason Start Date Expiration Date Visits Re quested Visits Authorized [id number] Closed 01/20/2022 02/19/2023 1 1 Encounter Details Date Type Department Care Team (Latest Contact Info) Description 01/20/2022 12:00 PM CDT Home Care Visit [facility] [address] [address] [address] [place] [address] Bipin Leiva RN SN INFUSION TREATMENT ROOM Social History Tobacco Use Types Packs/Day Years Used Date Smoking Tobacco: Never Smokeless Tobacco: Never Alcohol Use Standard Drinks/Week Comments Yes 0 (1 standard drink = 0.6 oz pur e alcohol) Comments Unknown Sex and Gender Information Value Date Recorded Sex Assigned at Not on file Legal Sex Female 12:12 AM HEAD OF TALENT MANAGEMENT Gender Identity Not on file Sexual Orientation Not on file 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 Instruct patient on how to recognize signs and symptoms of infection and when to notify HH nurse and/or physician. Problem:Learning/Teac adi Needs - IV Therapy Completed Patient instructed on frequent/proper hand-washing techniques, [place] precautions, avoid crowds and persons with known [...] site. documented in this encounter Care Teams Coffee Shop Manager Relationship Specialty Start Date End Date Gucci Manrique MD PCP - General Family Medicine 07/06/20 documented as of this encounter
--- OUTSIDE RECORDS SUMMARY | 2024-08-16 07:47 | XMS_ITS | Data Portability ---
Author Organization [facility], Main Office Address [address] [place] [address] Assessment Encounter Date Assessment Date Assessment LastModified [...] Time Bilateral spider veins of lower limbs [id number] 105 Active 2022 Heladio castle MD [address] [place] [address] [address], [place], [address] [facility] 12:47:48 Problem Notes None recorded. Medical Equipment [...] Updated DateTime 3 162.56 cm 40.3 kg/m2 170680. 21 g 75 /min 98 % 98 % 14 /min 97.4 [degF] 130 mm[Hg] 82 mm[Hg] Lily Conway [facility] 3 10:30:45 Social History None recorded. Functional Status None recorded. Mental Status None recorded. Family History Relationship Description Onset Age of this Age Resolved Age Notes LastModified by Organization Details LastModified Time Mother Venous varices [email or web address] Not available 05/27 10:31:08 Medical History Condition Response HEADACHES/MIGRAINES Y OBESITY Y BOWEL PROBLEMS Y Gynecological HistoryNo gynecological history recorded. Obstetrics History GPAL:G 0 P 0 0 0 0 Past Encounters Encounter ID Performer Location Encounter Start Date Encounter Closed Date Diagnosis/Indication Diagnosis SNOMED-CT Code Diagnosis ICD10 Code [id number] Heladio snowden MD [facility] General Surgery [address] [facility] [place] [address] [place] [address] 06/07/2023 10:21:07 06/07/2023 13:08:34 Bilateral spider veins of lower limbs [id number] I78.1 Health Concerns Section Related Observation LastModified by Organization Detai ls LastModified Time None Recorded Concern Status LastModified by Organization Details LastModified Time None Recorded Advance Directives Directive None Recorded Payers Encounter Date Sequence Insurance Name Policy Number Policy Gallegos Covered Member ID Gallegos Member ID Guarantor Name 06/07/2023 1 [employer] [id number] Jose A Reyesrand [id number] Pennie Aguila Notes Date Note Type Note Provider Name and Address Organization Details Recorded Time 06/07/2023 text/html Patient complains of painful veins lower extremities. She has had for many years. Worse with her last she recently had a child. Denies swelling of the extremities. Worse when standing for long hours. Heladio Kenny MD [address] [facility], [facility] [address], [place], [address], [facility] 06/07/2023 12:48:14 OBGyn Episode No OBEpisode recorded.
== END 2024-08-13 18:50 | disposition home or self-care (01) | DRG 787 ==
LOC: ANHLDR 05:57 → ANHOB2 11:00
PROVIDERS: Admitting Provider Obstetrics & Gynecology; Visit Provider Obstetrics & Gynecology
PROC: 10D00Z1 Extraction of Products of Conception, Low, Open Approach (ICD-10-PCS; CPT 59514; principal; 2024-08-11 07:30)
DX: O34.211 Maternal care for low transverse scar from previous cesarean delivery (principal); K50.00 Crohn's disease of small intestine without complications; Z37.0 Single live birth; O69.81X0 Labor and delivery complicated by cord around neck, without compression, not applicable or unspecified; Z3A.39 39 weeks gestation of pregnancy; O99.62 Diseases of the digestive system complicating childbirth
CPT/HCPCS: 36415; 85025; 86592; 86703; A9270; G0432; J0690; J2270; J2274; J2405; J2590; J3010; J7120

== ENCOUNTER 2025-05-06 07:23 | Outpatient (CLI) | payer OTHER, SELFPAY ==
[2025-05-06 09:19] LABS: Hematocrit 38.4 % (37.0-47.0); Hemoglobin 12.4 g/dL (12.0-15.0); Immature Granulocyte Percent A 0.3 % (0-0.5); Lymphocytes Absolute Auto 2.63 K/mm3 (0.9-3.2); Mean Corpuscular HGB Conc 32.3 g/dl (32-36); Mean Corpuscular Hemoglobin 27.6 pg (26-34); Mean Corpuscular Volume 85.3 fl (80-100); Nucleated Red Blood Cells Absolute Auto 0.000 K/mm3 (0.0-0.012); Nucleated Red Blood Cells Perc 0.0 % (0.0-0.2); Platelet Count Result 247 k/mm3 (150-375); Red Blood Count 4.50 M/mm3 (4.2-5.4); White Blood Count 6.9 K/mm3 (4.5-10.0)
[2025-05-06 09:37] LABS: Glucose 1 Hour PP 50gm Dose 67 mg/dL
[2025-05-06 10:11] LABS: Syphilis IgG/IgM Antibody Non-Reactive (Nonreactive)
[2025-05-06 10:16] LABS: Hepatitis B Surface Antigen Negative (Negative)
[2025-05-06 10:19] LABS: Beta HCG Quantitative 134670.00 mIU/ML
[2025-05-06 11:17] LABS: HIV 1/2 Ab P24 Ag Result Negative (Negative)
[2025-05-07 06:08] LABS: HSV 1 IgG, Type Spec Non Reactive (Non Reactive); HSV 2 IgG, Type Spec Non Reactive (Non Reactive)
[2025-05-07 08:08] LABS: Cytomegalovirus (CMV) Ab, IgG <0.60 U/mL (0.00-0.59)
[2025-05-07 15:09] LABS: Varicella-Zoster Ab, IgG Reactive (Non Reactive); Varicella-Zoster Ab, IgM <0.91 index (0.00-0.90)
[2025-05-11 14:08] LABS: Parvovirus B19, IgG 4.7 index (0.0-0.8); Parvovirus B19, IgM 0.3 index (0.0-0.8)
== END 2025-05-06 07:24 | disposition home or self-care (01) ==
LOC: ANHLAB 07:24
PROVIDERS: Visit Provider Obstetrics & Gynecology
DX: N91.2 Amenorrhea, unspecified (principal)
CPT/HCPCS: 36415; 82947; 84702; 85025; 86593; 86644; 86695; 86696; 86703; 86747; 86762; 86787; 86850; 86900; 86901; 87086; 87340; G0432

== ENCOUNTER 2025-08-13 07:38 | Outpatient (CLI) | payer OTHER, SELFPAY ==
--- NOTE | ~2025-08-13 | US_ITS ---
EXAM/PROCEDURE: US OB /maternal detail HISTORY: Z34.90 - Encounter for supervision of normal , u... COMPARISON: None available. TECHNIQUE: OB ultrasound FINDINGS: A single viable intrauterine gestation is present with heart rate of 149 bpm Presentation: Breech Placenta: Posterior with no gross evidence of previa or abruption. KYLE: Grossly normal with the dose vertical pocket measuring 3.5 cm. EGA by dates and ultrasound are 23 weeks 1 day and 23 weeks 4 days EDC by dates and ultrasound are December 09 and December 06, 2025 EFW: 612.15 g or 1 lb. 6 oz. EFW percentile: 66.2% Growth ratios are within normal limits. Visualized portions of the intracranial contents, nuchal fold, face, four- chamber view of the heart, diaphragm, spine, stomach, kidneys, urinary bladder, and three-vessel cord insertion appear normal. IMPRESSION: 1. Single viable intrauterine gestation with concordant dates and heart rate of 149 bpm. 2. No anatomic anomaly identified. 3. KYLE subjectively within normal limits; deepest single pocket measurement is 3.5 cm. Reviewed, dictated and finalized at location A. ENGINEERING TECHNICIAN
--- OUTSIDE RECORDS SUMMARY | 2025-08-13 07:41 | XMS_ITS | Clinical Summary ---
Author Organization [facility] Address [address] [facility] [place] [address] Care Team Providers Care Hand Laster Name Role Phone Unavailable Primary Care Provider Unavailabl e Source Comments [facility],non-owned Affiliates and Associated Physician Practices is amultiple site organization consisting of ambulatory clinics and hospital sitesin [place], [place], [place] and [place]. This disclosure is being madepursuant to the Care Everywhere program and may not contain all information available regarding this patient. Last updated 18.[facility] Allergies No known active allergies Medications * Be aware that medications may not be up to date on this document. Alwaysverify current medications with the patient. 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 Not on file Not on file Not on file Last Filed Vital Signs Vital Sign Reading Time Taken Comments Blood Pressure 118/61 07/21/2024 11:57 AM POTATO PICKER Pulse 82 07/21/2024 11:57 AM POTATO PICKER Temperature - - Respiratory Rate - - Oxygen Saturation - - Inhaled Oxygen Concentration - - Weight 88.9 kg (196 lb) 04/08/2024 11:26 AM CDT Height 162.6 cm (5' 4) 04/08/2024 11:26 AM CDT Body Mass Index 33.64 04/08/2024 11:26 AM CDT Plan of Treatment Health Maintenance Due Date Last Done Comments HIV SCREENING 2013 HPV VACCINE (1 - 3-dose series) 2013 HEPATITIS C SCREENING 09/30/2016 DTAP/TDAP/TD VACCINES (1 - Tdap) 2017 HEPATITIS B VACCINE (1 of 3 - 19+ 3-dose series) 2017 PAP SMEAR 2019 DEPRESSION SCREENING 08/27/2024 COVID-19 VACCINE (2 - 2024-2 6 season) 2025 11/26/2020 INFLUENZA VACCINE (#1) 2025 ZOSTER VACCINE (1 of 2) 2048 HIB VACCINE Aged Out No longer eligi ble based on patient's age to complete this topic MENINGOCOCCAL (Group B) VACC INE SHARED DECISION-MAKING Aged Out No longer eligibl e based on patient's age to complete this topic MENINGOCOCCAL GROUPS A/C/Y/W VACCINE Aged Out No longer eligible b ased on patient's age to complete this topic PNEUMOCOCCAL VACCINE Aged Out No long er eligible based on patient's age to complete this topic Insurance AET[employer] Member Subscriber Plan / Payer (Ef fective 2018-Present) Name:Pennie Walter Relation to Subscriber:Child Name:KRIS WALTER Date of :1974 (Home) Address: [address] [place] [address] Payer ID:[id number] (NAIC) Type:PPO Address: [facility] [address] [id number] A[employer] Member Subscriber Plan / Payer (Ef fective 2018-Present) Name:Pennie Walter Relation to Subscriber:Child Name:KRIS WALTER Date of :1974 (Home) Address: [address] [place] [address] Payer ID:[id number] (NAIC) Type:PPO Address: [facility] [address] [id number]
--- OUTSIDE RECORDS SUMMARY | 2025-08-13 07:41 | XMS_ITS | Clinical Summary ---
Author Organization [facility] Address [address] [place] [address] Care Team Providers Care Residential Door Installer Name Role Phone Ciera Saucedo NP Primary Care Provider [phone] Allergies No known active allergies Medications inFLIXimab-dyyb (INFLECTRA) 100 MG injectionIndications :Crohn's disease with complication, unspecified gastrointestinal tract location (CMS/HCC HHS/HCC) Inject 50 mLs (500 mg total) into the vein every 30 (thirty) days. 3 each 3 5 09/19/19 26 Active inFLIXimab-dyyb (INFLECTRA) 100 MG injectionIndications :Crohn's disease of colon with complication (CMS/HCC HHS/HCC) Inject 50 mLs (500 mg total) into the vein once for 1 dose. 3 each 5 07/17/20 25 Active Problems Problem Noted Date Diagnosed Date Crohn's disease of colon with complication 09/19 Encounters Date Type Department Care Team Description 07/17/2025 8:00 AM ARCHITECTURAL PROJECT MANAGER Treatment [facility] at [facility], [address] [address] Narciso Barnes MD Infusion Therapy 07/17/2025 Travel 06/19/2025 8:00 AM CDT Treatment [facility] at [facility], [address] [address] [place] [address] Narciso Barnes MD Infusion Therapy 06/19/2025 Travel 05/22/2025 8:00 AM CDT Treatment [facility]fusion [facility] at [address] [address] Narciso Barnes MD 05/22/2025 Travel from Last 3 Months Social History Tobacco Use Types Packs/Day Years Used Date Smoking Tobacco: Never Smokeless Tobacco: Never Tobacco Cessation:Counseling Given: No Alcohol Use Standard Drinks/Week Comments Yes 0 (1 standard drink = 0.6 oz pur e alcohol) socially PHQ-2 Answer Date Recorded Patient Health Questionnaire-2 Score 0 09/19/2024 Comments No Sex and Gender Information Value Date Recorded Sex Assigned at Female 05/23/2024 2:27 PM CDT Legal Sex Female 2:01 PM CDT Gender Identity Female 05/23/2024 2:27 PM CDT Sexual Orientation Not on file Last Filed Vital Signs Vital Sign Reading Time Taken Comments Blood Pressure 110/56 07/17/2025 11:06 AM ARCHITECTURAL PROJECT MANAGER Pulse 77 07/17/2025 11:06 AM ARCHITECTURAL PROJECT MANAGER Temperature 36.7 C (98 F) 06/19/2025 8:15 AM CDT Respiratory Rate 15 07/17/2025 11:06 AM ARCHITECTURAL PROJECT MANAGER Oxygen Saturation 100% 07/17/2025 11:06 AM ARCHITECTURAL PROJECT MANAGER Inhaled Oxygen Concentration - - Weight 107.5 kg (237 lb) 07/17/2025 8:25 AM ARCHITECTURAL PROJECT MANAGER Height 162.6 cm (5' 4) 07/17/2025 8:25 AM ARCHITECTURAL PROJECT MANAGER Body Mass Index 40.68 07/17/2025 8:25 AM ARCHITECTURAL PROJECT MANAGER Plan of Treatment Upcoming Encounters Date Type Department Care Team (Late st Contact Info) Description 08/14/2025 8:00 AM ARCHITECTURAL PROJECT MANAGER Treatment [facility] at [facility] [address] [place] [address] Narciso Barnes MD [address] [place] [address] [address] [place] [address] 09/11/2025 8:00 AM ARCHITECTURAL PROJECT MANAGER Treatment [facility] at [facility], [facility] [address] [place] [address] Narciso Barnes MD [address] [address] 10/09/2025 8:00 AM ARCHITECTURAL PROJECT MANAGER Treatment [facility] at [facility], [facility] [address] [place] [address] Narciso Barnes MD [address] [place] [address] 11/06/2025 8:00 AM CDT Treatment [facility] at [facility], [address] [address] Narciso Barnes MD [address] [place] [address] 12/04/2025 8:00 AM CDT Treatment [facility] at [facility], [address] [address] Narciso Barnes MD [address] [place] [address] Health Maintenance Due Date Last Done Comments Cervical Cancer Screening Pap Smear (Age 21 to 29) Every 3 Years 1998 Cervical Cancer Screening 1998 Annual Physical 2001 Hepatitis C 2016 COVID-19 Vaccine ( season) 2025 11/26/2020 Influenza Adult (#1) 2025 DTaP, Tdap and Td Vaccines (8 - Td or Tdap) 04/06/2032 04/06/2022, 01/04/2010, 03/16/2004, Additional history exists Hepatitis A Vaccines Completed 01/04/2010, 02/02/20 09 HPV Vaccines Completed 01/06/2014, 01/27/2013 Meningococcal Vaccine Completed 01/31/2016 , 01/04/2010, 01/04/2010 Hepatitis B Vaccines Completed 04/06/2022, 07/12/1999, 1998, Additional history exists Pneumococcal Vaccine: Pediatrics (0 to 5 Years) and At-Risk Patients (6 to 49 Years) Aged Out 04/06/2022 No longer eligible based on patient's age to complete this topic PHQ-2 (Physician Torres Martinez) Completed 09/19/2024 Meningococcal B Vaccine Aged Out No l onger eligible based on patient's age to complete this topic RSV Immunizations Under 20 Months Aged Out No longer eligible based on patient's age to complete this topic Insurance MEDICAID MEDICAID Care Teams Residential Door Installer Relationship Specialty Start Date End Date Ciera Saucedo NP [address] [place] [address] PCP - General NURSE PRACTITIONER 09/19/24
--- OUTSIDE RECORDS SUMMARY | 2025-08-13 07:41 | XMS_ITS | Encounter Summary ---
Author Organization [facility] Address [address] [place] [address] Care Team Providers Care Associate Product Integrity Engineer Name Role Phone Ciera Saucedo Primary Care Provider [phone] Encounter Details Date Type Department Care Team (Latest Contact Info) Description 10/21/1999 Outpatient Historical [facility] Giovanni Borden MD [address] [place] [address] Stenosis of nasolacrimal duct, acquired (Primary Dx) Social History Tobacco Use Types Packs/Day Years Used Date Smoking Tobacco: Never Assessed Comments Unknown Sex and Gender Information Value Date Recorded Sex Assigned at Female 04/18/2023 4:58 PM CDT Legal Sex Female 5:02 AM TRAVEL COORDINATOR Gender Identity Female 04/18/2023 4:58 PM CDT [...] documented as of this encounter Care Teams Associate Product Integrity Engineer Relationship Specialty Start Date End Date Ciera Saucedo FNP [address] [employer] [place] [address] PCP - General Nurse Practitioner Family 05/24/21 documented as of this encounter
--- OUTSIDE RECORDS SUMMARY | 2025-08-13 07:41 | XMS_ITS | Encounter Summary ---
Author Organization [facility] Address [facility] [place] [address] Care Team Providers Care Sports Umpire Name Role Phone Ciera Saucedo NP Primary Care Provider Encounter Details Date Type Department Care Team (Late st Contact Info) Description 09/23/2024 Chanyoujit Message Enc [facility] [address] [address] Narciso Barnes MD 3 [facility] [address] [place] [address] Infusion Social History Tobacco Use Types Packs/Day Years Used Date Smoking Tobacco: Never Smokeless Tobacco: Never Alcohol Use Standard Drinks/Week Comments Not Currently 0 (1 standard drink = 0.6 oz pur e alcohol) PHQ-2 Answer Date Recorded Patient Health Questionnaire-2 Score 0 09/19/2024 Comments Unknown Sex and Gender Information Value Date Recorded Sex Assigned at Female 05/23/2024 2:27 PM CDT Legal Sex Female 2:01 PM CDT Gender Identity Female 05/23/2024 2:27 PM CDT Sexual Orientation Not on file documented as of this encounter Plan of Treatment Upcoming Encounters Date Type Department Care Team (Late st Contact Info) Description 08/14/2025 8:00 AM PUBLIC HEALTH TECHNOLOGIST Treatment [facility] Infusion Services at [facility], [facility] [address] [place] [address] Narciso Barnes MD [address] [place] [address] [address] [place] [address] 09/11/2025 8:00 AM PUBLIC HEALTH TECHNOLOGIST Treatment [facility] at [facility], [facility] [address] [place] [address] Narciso Barnes MD [address] [place] [address] [address] [place] [address] 10/09/2025 8:00 AM PUBLIC HEALTH TECHNOLOGIST Treatment [facility] at [facility], [facility] [address] [place] [address] Narciso Barnes MD [address] [place] [address] [address] [place] [address] 11/06/2025 8:00 AM CDT Treatment [facility] at [facility], [facility] [address] [place] [address] Narciso Barnes MD [address] [place] [address] 12/04/2025 8:00 AM CDT Treatment [facility] at [facility], [facility] [address] [place] [address] Narciso Barnes MD [address] [place] [address] [address] [place] [address] documented as of this encounter Visit Diagnoses Not on filedocumented in this encounter Care Teams Sports Umpire Relationship Specialty Start Date End Date Ciera Saucedo NP [address] [place], [place] [id number] PCP - General NURSE PRACTITIONER 09/19/24 documented as of this encounter
--- OUTSIDE RECORDS SUMMARY | 2025-08-13 07:41 | XMS_ITS | Clinical Summary ---
Author Organization [facility] Address [address] [place] [address] Phone Care Team Providers Care Lung Splitter Name Role Phone Ciera Saucedo BARBI Primary Care Provider Allergies No known active allergies Medications INFLIXIMAB IV Inject 500 mg by intravenous injection every 28 days. 3 Active omeprazole (PriLOSEC) 40 mg Capsule, Delayed Release(E.C.) Take 1 Capsule (40 mg) by mouth 2 times daily. 180 Capsule 3 5 Active Active Problems Problem Noted Date Diagnosed Date Crohn's disease 05/25/2021 Overview (05/25/2021): Follows with Shreya Platt MD [facility] IBD. Encounters Date Type Department Care Team Description 07/21/2025 External Device Data ST[facility] ABSTRACTION Provider, Abstract 06/09/2025 External Device Data [facility] ABSTRACTION Provider, Abstract 05/19/2025 External Device Data [facility] ABSTRACTION Provider, Abstract from Last 3 Months Family History Medical History Relation Name Comments Cancer Maternal Uncle Kavon Knighte Pancreatic/ Bile duct Diabetes Paternal Uncle Pedro Walter Crohn's Disease Sister Nae Walter Inflammatory Bowel Disease Sister Nae grossman Relation Name Status Comments Maternal Uncle Kavon Foreshee Paternal Uncle Pedro Walter Sister Nae Walter Social History Tobacco Use Types Packs/Day Years Used Date Smoking Tobacco: Never Smokeless Tobacco: Never Tobacco Cessation:Counseling Given: Not Answered Alcohol Use Standard Drinks/Week Comments Never 5 (1 standard drink = 0.6 oz pur e alcohol) Comments No Sex and Gender Information Value Date Recorded Sex Assigned at Female 04/18/2023 4:58 PM CDT Legal Sex Female 5:02 AM REGIONAL DIRECTOR OF ADMISSIONS Gender Identity Female 04/18/2023 4:58 PM CDT Sexual Orientation Not on file Last Filed Vital Signs Vital Sign Reading Time Taken Comments Blood Pressure 105/58 05/05/2024 8:33 AM CDT Pulse 71 05/05/2024 8:33 AM CDT Temperature 36.8 C (98.2 F) 09/22/2024 8:03 AM REGIONAL DIRECTOR OF ADMISSIONS Respiratory Rate 18 09/22/2024 8:03 AM REGIONAL DIRECTOR OF ADMISSIONS Oxygen Saturation 96% 09/22/2024 8:03 AM REGIONAL DIRECTOR OF ADMISSIONS Inhaled Oxygen Concentration - - Weight 102.2 kg (225 lb 3.2 oz) 09/22/2024 8:03 AM REGIONAL DIRECTOR OF ADMISSIONS Height 164.6 cm (5' 4.8) 09/22/2024 8:03 AM REGIONAL DIRECTOR OF ADMISSIONS Body Mass Index 37.71 09/22/2024 8:03 AM REGIONAL DIRECTOR OF ADMISSIONS Plan of Treatment Health Maintenance Due Date Last Done Comments HPV VACCINES (1 - 3-dose series) 2013 DTAP/TDAP/TD VACCINES (1 - Tdap) 2017 HEPATITIS B VACCINES (1 of 3 - 19+ 3-dose series) 04/2018 CERVICAL CANCER SCREENING 2019 HPV/Cotest (21-29) 2019 PAP SMEAR 2019 INFLUENZA VACCINE (#1) 2025 Insurance [employer] Care Teams Lung Splitter Relationship Specialty Start Date End Date Ciera Saucedo FNP [address] [place] [address] PCP - General Nurse Practitioner Family 05/24/21
--- OUTSIDE RECORDS SUMMARY | 2025-08-13 07:41 | XMS_ITS | Clinical Summary ---
Author Organization [facility] Address [address] [place] [address] Care Team Providers Care Rn Endocrinology Name Role Phone Gucci Manrique MD Primary Care Provider + [phone] [place], Concetta Bowden MD Unavailable [phone] Allergies No known active allergies Medications 0.9 % sodium chloride ([facility] sodium chloride 0.9%) injectionIndic ations:Maintai n [...] ORAL)Indicatio ns: Take 4 each by mouth director data processing before breakfast. Indications: Active ferrous sulfate 325 mg (65 mg of elemental iron) tabletIndicati ons:Iron Deficiency Anemia Take 1 tablet by mouth daily with breakfast. Indications: anemia from inadequate iron Active cyclobenzaprin e (FLEXERIL) 10 mg tabletIndicati [...] for nonprocreative genetic counseling and testing 10/10/2023 Surgical History Surgery Date Site/Laterality Comments WISDOM [...] of experiencing loneliness or isolatio n Never 11/12/2024 AUDIT-C Answer Date Recorded Frequency of Alcohol Consumption Not on file 10/10/2023 Q2: How many drinks containi ng alcohol do you have on a typical day when you are drinking? 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 on file Not on file Not on file Last Filed Vital Signs Vital Sign Reading Time Taken Comments Blood Pressure 117/60 12/15/2024 11:20 AM CDT Pulse 57 12/15/2024 11:20 AM CDT Temperature 36.3 C (97.4 F) 12/15/2024 11:20 AM CDT Respiratory Rate 16 12/15/2024 11:20 AM CDT Oxygen Saturation 100% 12/15/2024 11:20 AM CDT Inhaled Oxygen Concentration - - Weight 102.1 kg (225 lb) 12/15/2024 9:27 AM CDT Height 162.6 cm (5' 4) 12/15/2024 9:27 AM CDT Body Mass Index 38.62 12/15/2024 9:27 AM CDT Plan of Treatment Health Maintenance Due Date Last Done Comments Cervical Cancer Screening 1998 Depression Screening 1998 Hepatitis C Screening 1998 Regular Well Visit/Exam 18-64 2016 Pneumococcal vaccine <65 (1 of 2 - PCV) 2017 Zoster Vaccine (1 of 2) 2017 DTaP/Tdap/Td Vaccine (7 - Td or Tdap) 01/05/2020 01/04/2010, 03/16/2004, 01/10/2000, Additional history exists Covid-19 Vaccine (2 - Jansse n risk series) 12/24/2020 11/26/2020 Influenza Vaccine (#1) 2025 Hepatitis B Screening Completed 07/12/1999 , 1998, 1998 Varicella Vaccines Completed 02/01/2009, 10/07/1999 HPV Vaccines Completed 01/06/2014, 01/27/2013 Insurance [facility] [employer] SIGNATURE IDPA Care Teams Rn Endocrinology Relationship Specialty Start Date End Date Gucci Manrique MD PCP - General Family Medicine 07/06/20 Concetta Diop MD Surgeon Breast Surgery 08/28/23
--- OUTSIDE RECORDS SUMMARY | 2025-08-13 07:41 | XMS_ITS | Encounter Summary ---
Author Organization [facility] Address [address] [place] [address] Care Team Providers Care Business Systems Technician Name Role Phone Gucci Manrique MD Primary Care Provider + [phone] [place], Concetta Bowden MD Unavailable [phone] Reason for Referral * Medication Authorization (Routine) - Closed Specialty Diagnoses / Procedures Referred By Contac [place] [id number] [address] Phone: tel: fax: Referral ID Status Reason Start Date Expiration Date Visits Re quested Visits Authorized [id number] Closed 05/05/2024 06/04/2025 1 1 OSITE ASSEMBLER Encounter Details Date Type Department Care Team (Late st Contact Info) Description 07/27/2024 Orders Only [facility] [address] [place] [address] Jennifer Vences, [facility] Crohn's colitis, other complication (HCC) [...] on file Legal Sex Female 12:12 AM COMPOSITE ASSEMBLER Gender Identity Not on file Sexual Orientation Not on file Occupation Industry Job Start Date Job End Date [employer] Not on file Not on file Not [...] 07/27/2024 documented in this encounter Care Teams Business Systems Technician Relationship Specialty Start Date End Date Gucci Manrique MD PCP - General Family Medicine 07/06/20 Concetta Diop MD Surgeon Breast Surgery 08/28/23 documented as of this encounter
== END 2025-08-13 07:39 | disposition home or self-care (01) ==
PROVIDERS: Visit Provider Obstetrics & Gynecology
DX: Z34.90 Encounter for supervision of normal pregnancy, unspecified, unspecified trimester (principal)
CPT/HCPCS: 76805